=== PATIENT | female | born 1970 | race Caucasian/White ===

== ENCOUNTER 2017-01-20 17:32 | Inpatient (IN) | payer MEDICARE, OTHER ==
--- NOTE | 2017-01-20 15:26 | P.HPIM ---
History of Present Illness H&P Date: 01/20/17 46-year-old female admitted to the F floor from hospice care. Patient had made a clinical improvement was more awake and more alert family had opted to stop the hospice care on January 20 and wanted medical management 2 resume. Patient's initial presentation to the emergency room on January 08 with a polysubstance drug overdose necessitating intubation with vent support for acute hypoxic respiratory failure. Patient was able to be extubated and transferred from the ICU to the stepdown unit where her family wanted the patient under hospice care. 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 Organisms: MRSA Date of last positivie culture/infection: 01/08/17 MDRO Source:: BLOOD Past Surgical History: Unable to Obtain, Appendectomy, Tubal Ligation Additional Past Surgical History / Comment(s): neck fusion Past Anesthesia/Blood Transfusion Reactions: No Reported Reaction, Unable to Obtain Past Psychological History: No Psychological Hx Reported, Unable to Obtain Smoking Status: Unknown if ever smoked Past Alcohol Use History: None Reported, Unable to Obtain Past Drug Use History: None Reported, Unable to Obtain Additional Drug Use History / Comment(s): tox screen positive - Past Family History Father History Unknown: Yes Family Medical History: Unable to Obtain Mother History Unknown: Yes Family Medical History: Unable to Obtain Medications and Allergies Home Medications Medication Instructions Recorded Confirmed Type Baclofen [Lioresal] 20 mg PO TID 01/08/17 01/20/17 History Choline Citrate 650mg 650 mg PO BID 01/08/17 01/20/17 History Cyanocobalamin (Vitamin B-12) 1,000 mcg PO DAILY 01/08/17 01/20/17 History [Vitamin B-12] Folic Acid 0.4 mg PO DAILY 01/08/17 01/20/17 History Gabapentin 600 mg PO Q4H 01/08/17 01/20/17 History HYDROcodone/IBUPROFEN [Xylon 0.5 tab PO BID 01/08/17 01/20/17 History 10-200 mg Tablet] Levothyroxine Sodium [Synthroid] 137 mcg PO DAILY 01/08/17 01/20/17 History Loratadine 10 mg PO DAILY 01/08/17 01/20/17 History Morphine Sulfate [Ms Contin] 15 mg PO HS 01/08/17 01/20/17 History Morphine Sulfate [Ms Contin] 30 mg PO QAM 01/08/17 01/20/17 History Naproxen 500 mg PO Q12H 01/08/17 01/20/17 History Nortriptyline [Pamelor] 100 mg PO HS 01/08/17 01/20/17 History Omeprazole 40 mg PO DAILY 01/08/17 01/20/17 History Oxybutynin Chloride [Ditropan] 5 mg PO TID 01/08/17 01/20/17 History Pyridoxine [Vitamin B-6] 50 mg PO DAILY 01/08/17 01/20/17 History Allergies Allergy/AdvReac Type Severity Reaction Status Date / Time acetaminophen Allergy Unknown Verified 01/16/17 13:38 aspirin Allergy Rash/Hives Verified 01/16/17 13:38 DAIRY Allergy Vomiting Uncoded 01/08/17 17:54 Physical Exam Vitals: Intake and Output 01/20/17 01/20/17 01/20/17 06:59 14:59 22:59 Intake Total 102.000 365 Output Total 1100 600 Balance -998.000 -235 Intake: IV 65 Morphine Sulfate (100 mg/ 65 2 ml) 100 mg In Sodium Chloride 0.9% 100 ml @ Titrate IV .Q0M RAGHU Rx#: [id number] Intake, IV Titration 102.000 Amount Morphine Sulfate (100 mg/ 102.000 2 ml) 100 mg In Sodium Chloride 0.9% 100 ml @ Titrate IV .Q0M RAGHU Rx#: [id number] Oral 0 300 Output: Urine 1100 600 Uretheral (Yuan) 500 Other: Voiding Method Indwelling Catheter Indwelling Catheter Weight 79.5 kg 79.5 kg Patient Weight 01/21/17 06:59 Weight 79.5 kg GENERAL APPEARANCE: The patient is increasingly more awake and alert is asking to be feed alert, oriented to person only is able to identify family members, in no acute distress. attempt to follow simple commands VITAL SIGNS: Reviewed HEENT: Head is normocephalic and atraumatic. Pupils are equal and reactive. The nares are patent. Oropharynx is clear without lesions. NECK: Supple without lymphadenopathy. Traches midline. HEART: S1, S2. Regular rate and rhythm. LUNGS: No crackles or wheezes are heard. ABDOMEN: Soft, nontender, nondistended with good bowel sounds. No peritoneal signs. No palpable organomegaly or masses. EXTREMITIES: Normal skin color and turgor. No cyanosis, rash, ulceration, clubbing or edema. Radial pedal pulses are 2/4 bilaterally. NEUROLOGICAL: No focal deficits. Strength and sensation are grossly intact. Results CBC & Chem 7: 01/22/17 06:15 01/22/17 06:15 Thrombosis Risk Factor Assmnt - Choose All That Apply Any of the Below Risk Factors Present?: Yes Each Factor Represents 1 point: Age 41-60 years Other Risk Factors: Yes Each Risk Factor Represents 2 Points: Patient confined to bed Other congenital or acquired thrombophilia - If yes, enter type in comment: No Thrombosis Risk Factor Assessment Total Risk Factor Score: 3 Thrombosis Risk Factor Assessment Level: Moderate Risk Assessment and Plan Plan: Impression Recent admission on 01/08/2017 for acute hypoxic respiratory failure suspect due to a polysubstance drug overdose resolved Recent Blood cultures positive for MRSA Chest x-ray right upper lobe pneumonia Recent admission 01/08/2017 acute metabolic encephalopathy suspect due to medication Recent admission for treatment of on 01/08/2017 Drug overdose unclear if intentional or unintentional recent admission and treatment for on 01/08/2017 severe recent admission 01/08/2017 for treatment of sepsis with septic shock suspect due to MRSA pneumonia and bacteremia Recent admission treatment for on 01/08/2017 aspiration pneumonia right lower lobe likely due to MRSA with acute hypoxic respiratory failure Plan Resume IV antibiotics as ordered Aspiration precautions DVT and GI prophylaxis Wean morphine drip off Resume home meds as appropriate Further recommendations pending PT OT eval The above impression and plan of care have been discussed and directed by signing physician. Vero Hernandez nurse practitioner acting as scribe for signing physician.
[2017-01-20 18:46] VITALS: BMI 29.1
[2017-01-20] MEDS ORDERED: IV VANCOMYCIN PER PHARMACY 1 EACH MISC MISCELLANE PRN (19:01)
[2017-01-20] MEDS ORDERED: MORPHINE SULFATE ER 15 MG TABLET PO SCH (21:00)
[2017-01-20] MEDS ORDERED: NORTRIPTYLINE 25 MG CAP PO SCH (21:00)
[2017-01-20] MEDS: VANCOMYCIN 1,750 MG in SODIUM CHLORIDE 0.9% 250 ML IVPB SCH (22:53)
[2017-01-20] MEDS: BACLOFEN 10 MG TAB PO SCH (22:54)
[2017-01-20] MEDS: NAPROXEN 250 MG TAB PO SCH (22:55)
[2017-01-20] MEDS: SODIUM CHLORIDE 0.9% 1,000 ML IV SCH (22:56)
[2017-01-20] MEDS: OXYBUTYNIN CHLORIDE 5 MG TAB PO SCH (22:56)
[2017-01-20] MEDS: ONDANSETRON 4 MG/2 ML VIAL IVP PRN (23:09)
[2017-01-21] MEDS: PIPERACILLIN-TAZOBACTAM 3.375 GM in DEXTROSE/WATER 1 50ML.BAG IVPB SCH ×4 (01:41→23:35)
[2017-01-21] MEDS: LEVOTHYROXINE 137 MCG TAB PO SCH (06:14)
[2017-01-21] MEDS: VANCOMYCIN 1,750 MG in SODIUM CHLORIDE 0.9% 250 ML IVPB SCH ×2 (07:26→19:50)
[2017-01-21 08:43] LABS: Basophils # (A) 0.1 k/uL (0-0.2); Basophils % (A) 1 %; CH 30.7; CHCM 34.3; Eosinophils # (A) 0.2 k/uL (0-0.7); Eosinophils % (A) 2 %; HCT 32.9 % (34.0-46.0); HDW 3.29; HGB 10.9 gm/dL (11.4-16.0); Luc % (Auto) 2; Lymphocytes # (A) 1.7 k/uL (1.0-4.8); Lymphocytes % (A) 18 %; MCH 29.7 pg (25.0-35.0); MCHC 33.1 g/dL (31.0-37.0); MCV 89.8 fL (80.0-100.0); Mean Platelet Volume 7.5; Monocytes # (A) 0.5 k/uL (0-1.0); Monocytes % (A) 5 %; Neutrophils # (A) 6.8 k/uL (1.3-7.7); Neutrophils % (A) 71 %; RBC 3.66 m/uL (3.80-5.40); RDW 14.5 % (11.5-15.5); WBC 9.6 k/uL (3.8-10.6); WBC (Perox) 10.13
[2017-01-21 08:48] LABS: ALT 59 U/L (9-52); AST 27 U/L (14-36); Alkaline Phosphatase 269 U/L (38-126); Anion Gap 12 mmol/L; Blood Urea Nitrogen 14 mg/dL (7-17); Calcium 8.5 mg/dL (8.4-10.2); Carbon Dioxide 24 mmol/L (22-30); Chloride 105 mmol/L (98-107); Glucose 74 mg/dL (74-99); Non-African American GFR(MDRD) >60 (>60 ml/min/1.73 sqM); Potassium 3.6 mmol/L (3.5-5.1); Sodium 141 mmol/L (137-145); Total Bilirubin 0.6 mg/dL (0.2-1.3); Total Protein 6.2 g/dL (6.3-8.2)
[2017-01-21] MEDS ORDERED: MORPHINE SULFATE ER 30 MG TABLET PO SCH ×2 (09:00→11:50)
[2017-01-21] MEDS: NAPROXEN 250 MG TAB PO SCH ×2 (09:43→19:50)
[2017-01-21] MEDS: PANTOPRAZOLE 40 MG TABLET PO SCH (09:43)
[2017-01-21] MEDS: BACLOFEN 10 MG TAB PO SCH ×3 (09:43→20:02)
[2017-01-21] MEDS: CYANOCOBALAMIN 500 MCG TAB PO SCH (09:43)
[2017-01-21] MEDS: OXYBUTYNIN CHLORIDE 5 MG TAB PO SCH ×3 (09:44→21:51)
[2017-01-21] MEDS: SODIUM CHLORIDE 0.9% 1,000 ML IV SCH (09:47)
--- NOTE | 2017-01-21 10:59 | P.CNPUL ---
History of Present Illness Consult date: 01/21/17 Requesting physician: Philip Andino Reason for consult: pneumonia Chief complaint: shortness of breath History of present illness: This is a 46-year-old female patient being seen, examined and evaluated today on the fifth floor. This patient originally presented to the emergency room on 01/08/2017 via EMS for overdose. Apparently the patient was at home and her roommate found her unresponsive around multiple bottles of pills, therefore the remaining forced her to vomit before EMS arrived. When EMS arrived they did note that there was pill fragments in her vomit. EMS did give the patient Narcan with minimal improvement of her symptoms. It is unclear what medications the patient did consume however there is speculation that it was morphine, gabapentin and baclofen. The patient's urine drug screen was positive for opiates, tricyclic antidepressants, cocaine and marijuana. Poison control was also following the patient. The patient was on mechanical ventilation with propofol for sedation she also noted to have a right lower lobe aspiration pneumonia. The patient was on mechanical ventilation for several days and had a neurological evaluation as well. It was felt that the patient suffered an anoxic brain injury and after 2 brain CTs and 3 EEGs. The patient was not showing any neurological improvements or advancement. The patient's power of state's attorney Natalya was updated daily on her condition and Natalya was requesting that the patient be made comfort care with hospice. The patient was trialed on CPAP with his sedation holidays on a daily basis and again before extubation and the patient was unable to tolerate it, her heart rate as well as a respiratory rate increased significantly. Patient was ultimately switched over to comfort care/hospice per power of state's attorney's request. Apparently over the last 2 days the patient was showing some clinical improvement therefore the patient's power of state's attorney Natalya requested we take her off of hospice and restart medical management. Upon examination today the patient is resting up in bed and is somewhat lethargic, she is able to follow simple commands, she is extremely weak and has some shortness of breath with activity. Patient is able to recall some of her long-term memory, however short -term memory seems to be impaired. Patient does not remember coming to the hospital or why she is here. She does recognize her daughter as well as her mother at bedside. Currently she is on a pured diet and is tolerating that well. Patient denies any pain or any further complaints. Review of Systems 14 point review of systems was completed and is negative unless noted above in the HPI. 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 Organisms: MRSA Date of last positivie culture/infection: 01/08/17 MDRO Source:: BLOOD Past Surgical History: Unable to Obtain, Appendectomy, Tubal Ligation Additional Past Surgical History / Comment(s): neck fusion Past Anesthesia/Blood Transfusion Reactions: No Reported Reaction, Unable to Obtain Past Psychological History: No Psychological Hx Reported, Unable to Obtain Smoking Status: Unknown if ever smoked Past Alcohol Use History: None Reported, Unable to Obtain Past Drug Use History: None Reported, Unable to Obtain - Past Family History Father History Unknown: Yes Family Medical History: Unable to Obtain Mother History Unknown: Yes Family Medical History: Unable to Obtain Medications and Allergies Home Medications Medication Instructions Recorded Confirmed Type Baclofen [Lioresal] 20 mg PO TID 01/08/17 01/20/17 History Choline Citrate 650mg 650 mg PO BID 01/08/17 01/20/17 History Cyanocobalamin (Vitamin B-12) 1,000 mcg PO DAILY 01/08/17 01/20/17 History [Vitamin B-12] Folic Acid 0.4 mg PO DAILY 01/08/17 01/20/17 History Gabapentin 600 mg PO Q4H 01/08/17 01/20/17 History HYDROcodone/IBUPROFEN [Xylon 0.5 tab PO BID 01/08/17 01/20/17 History 10-200 mg Tablet] Levothyroxine Sodium [Synthroid] 137 mcg PO DAILY 01/08/17 01/20/17 History Loratadine 10 mg PO DAILY 01/08/17 01/20/17 History Morphine Sulfate [Ms Contin] 15 mg PO HS 01/08/17 01/20/17 History Morphine Sulfate [Ms Contin] 30 mg PO QAM 01/08/17 01/20/17 History Naproxen 500 mg PO Q12H 01/08/17 01/20/17 History Nortriptyline [Pamelor] 100 mg PO HS 01/08/17 01/20/17 History Omeprazole 40 mg PO DAILY 01/08/17 01/20/17 History Oxybutynin Chloride [Ditropan] 5 mg PO TID 01/08/17 01/20/17 History Pyridoxine [Vitamin B-6] 50 mg PO DAILY 01/08/17 01/20/17 History Allergies Allergy/AdvReac Type Severity Reaction Status Date / Time acetaminophen Allergy Unknown Verified 01/16/17 13:38 aspirin Allergy Rash/Hives Verified 01/16/17 13:38 DAIRY Allergy Vomiting Uncoded 01/08/17 17:54 Physical Exam Vitals: Vital Signs Temp Pulse Resp BP Pulse Ox 01/21/17 07:47 66 16 01/21/17 07:00 99.1 F 66 16 122/68 93 L 01/21/17 00:00 61 16 01/20/17 22:39 98.4 F 61 16 131/86 92 L Intake and Output 01/20/17 01/21/17 01/21/17 22:59 06:59 14:59 Intake Total 130 1310 Output Total 325 400 400 Balance -195 910 -400 Intake: Intake, IV Titration 1310 Amount Piperacillin-Tazobactam 3 50 .375 gm In Dextrose/Water 1 50ml.bag @ 12.5 mls/hr IVPB Q8HR RAGHU Rx#: [id number] Sodium Chloride 0.9% 1, 1010 000 ml @ 75 mls/hr IV . [id number] RAGHU Rx#:[id number] Vancomycin 1,750 mg In 250 Sodium Chloride 0.9% 250 ml @ 125 mls/hr IVPB Q12H RAGHU Rx#:[id number] Oral 130 Output: Urine 325 400 400 Uretheral (Yuan) 325 Other: Voiding Method Indwelling Catheter Indwelling Catheter # Voids 0 0 Weight 79.5 kg 79.5 kg 79.5 kg Patient Weight 01/22/17 06:59 Weight 79.5 kg GENERAL EXAM: Alert, lethargic, comfortable in no apparent distress. HEAD: Normocephalic. EYES: Normal reaction of pupils, equal size. NOSE: Clear with pink turbinates. THROAT: No erythema or exudates. NECK: No masses, no JVD. CHEST: No chest wall deformity. LUNGS: Lung sounds noted to be coarse throughout. Equal air entry with no crackles, wheeze, rhonchi or dullness. Bases diminished. CVS: S1 and S2 normal with no audible mumurs, regular rhythm. ABDOMEN: No hepatosplenomegaly, normal bowel sounds, no guarding or rigidity. EXTREMITIES: No edema noted, pedal pulses palpable. SKIN: No rashes CENTRAL NERVOUS SYSTEM: No focal deficits, tone is normal in all 4 extremities. Results - Laboratory Findings CBC and BMP: 01/21/17 07:40 01/21/17 07:40 Abnormal lab findings: Abnormal Labs 01/21/17 01/21/17 07:40 07:40 RBC 3.66 L Hgb 10.9 L Hct 32.9 L Plt Count 712 H ALT 59 H Alkaline Phosphatase 269 H Total Protein 6.2 L Albumin 3.0 L Assessment and Plan Plan: Assessment Acute hypoxic respiratory failure Aspiration pneumonia, right lower lobe, likely related to MRSA which is isolated in the blood, sputum also did have gram-positive cocci overall appeared to be MRSA pneumonia and bacteremia Severe sepsis with septic shock Drug overdose, unclear if it was intentional or unintentional Encephalopathy likely related to medication with comatose state, improved Drug overdose and polysubstance abuse Plan Patient's power of state's attorney Natalya is at bedside and updated on patient current condition as well as plan of care. All questions have been answered. Medications have been reviewed and will be continued as ordered. We will add nebulizer treatments. Obtain chest x-ray in the morning. Neurology on consult and appreciate any recommendations. Initiate and encourage incentive spirometer. Continue with pulmonary hygiene, coughing and deep breathing exercises, and supportive care. Supplemental oxygen to maintain oxygen saturations of 92% or better. Continue nebulizer treatments. GI and DVT prophylaxis. We will continue to monitor labs/results and adjust treatment as necessary. Further recommendations pending. I performed an examination of the patient and discussed their management with the nurse practitioner. I have reviewed the nurse practitioner's note and agree with the documented findings and plan of care.
[2017-01-21] MEDS: FOLIC ACID 1 MG TAB PO SCH (11:14)
[2017-01-21] MEDS ORDERED: MORPHINE SULFATE ER 15 MG TABLET PO SCH (11:52)
--- NOTE | 2017-01-21 12:25 | P.PN ---
Subjective 46-year-old female being seen this morning on rounds. Mother is at the bedside as well as a sister. Patient is more awake and alert this morning compared to prior assessment. Patient is able to identify family members and place and her name. Speech is slow but audible. Patient additionally will follow simple commands and moves extremities appropriately Nursing reports the patient has been incontinent of stool this morning. Patient's currently being followed by neurology, pulmonary and infectious disease. Patient's initial presentation to the emergency room with a drug overdose polysubstance unclear if it was intentional or unintentional. Patients also being treated for aspiration pneumonia right lower lobe likely related to MRSA. Patient's encephalopathy slowly improving. Patient originally presented to the emergency room on the 13 of January via the EMS system after patient was found unresponsive at home suspect a drug overdose polysubstance. Patient was noted to have a urine drug screen which was positive for opiates, tricyclic antidepressants, cocaine and marijuana. Patient was placed on mechanical ventilation support and treated for the right lower lobe aspiration pneumonia. Patient had been on mechanical ventilation for several days and been followed by neurology service. Neurology service felt that the patient suffered anoxic brain injury after to brain CT scans and 3 EEGs. There was no significant improvement neurologically. The patient's daughter Natalya was power of finance attorney was updated throughout the hospitalization on the patient's progress. The daughter who was the power of finance attorney Natalya was requesting that the patient be made comfort care with hospice. Ultimately the patient was able to be extubated per family request the patient was discharged from the ICU to a hospice care. The patient apparently continued to show slight improvement in the neurological status patient became more awake. The family wanted the hospice comfort care stopped and they wanted the patient taken off of hospice they wanted to restart medical management. This was started patient was discharged from hospice on January 20 and readmitted to medical floor with medical management restarted. Physical and occupational therapy initiated in all consulting physicians recommendations noted and appreciated. Patient did have a swallow eval done on January 20 patient was able to tolerate pureed diet Objective - Vital Signs Vital signs: Vital Signs Temp 99.1 F 01/21/17 07:00 Pulse 66 01/21/17 07:47 Resp 16 01/21/17 07:47 BP 122/68 01/21/17 07:00 Pulse Ox 93 L 01/21/17 07:00 Intake & Output 01/20/17 01/21/17 01/21/17 18:59 06:59 18:59 Intake Total 1440 Output Total 325 400 400 Balance -325 1040 -400 Weight 79.5 kg 79.5 kg 79.5 kg Intake: Intake, IV Titration 1310 Amount Piperacillin-Tazobactam 3 50 .375 gm In Dextrose/Water 1 50ml.bag @ 12.5 mls/hr IVPB Q8HR [facility]AG[facility] Rx#: [id number] Sodium Chloride 0.9% 1, 1010 000 ml @ 75 mls/hr IV . [id number] RAGHU Rx#:[id number] Vancomycin 1,750 mg In 250 Sodium Chloride 0.9% 250 ml @ 125 mls/hr IVPB Q12H RAGHU Rx#:[id number] Oral 130 Output: Urine 325 400 400 Uretheral (Yuan) 325 Other: Voiding Method Indwelling Catheter Indwelling Catheter # Voids 0 0 - Exam Physical exam 46-year-old female resting in bed currently is awake eyes on a TV program when asked what she was watching patient was not able to recall but was able to identify mother and sister at the bedside Lungs diminished at the bases otherwise adequate air movement on room air no cough noted no shortness breath Heart S1-S2 audible no murmur noted 9 chest pain Abdomen soft not distended no facial grimacing with palpitation to the abdominal wall. Patient has been incontinent of stool indwelling Yuan catheter in place Extremities no edema noted. Patient will move extremities to simple command - Labs CBC & Chem 7: 01/21/17 07:40 01/21/17 07:40 Labs: Abnormal Lab Results - Last 24 Hours (Table) 01/21/17 01/21/17 Range/Units 07:40 07:40 RBC 3.66 L (3.80-5.40) m/uL Hgb 10.9 L (11.4-16.0) gm/dL Hct 32.9 L (34.0-46.0) % Plt Count 712 H (150-450) k/uL ALT 59 H (9-52) U/L Alkaline Phosphatase 269 H (38-126) U/L Total Protein 6.2 L (6.3-8.2) g/dL Albumin 3.0 L (3.5-5.0) g/dL Assessment and Plan Plan: Impression Present on admission acute hypoxic respiratory failure suspect due to a polysubstance drug overdose Blood cultures positive for MRSA Chest x-ray right upper lobe pneumonia Present on admission acute metabolic encephalopathy suspect due to medication with a comatose state improved Drug overdose unclear if intentional or unintentional Present on admission severe sepsis with septic shock suspect due to MRSA pneumonia and bacteremia Present on admission aspiration pneumonia right lower lobe likely due to MRSA with acute hypoxic respiratory failure Plan Resume IV antibiotics as ordered Aspiration precautions DVT and GI prophylaxis [employer]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 Vero Hernandez nurse practitioner acting as scribe for signing physician.
[2017-01-21 13:08] LABS: Appearance,Urine Cloudy (Clear); Bilirubin,Urine Negative (Negative); Glucose,Urine (UA) Negative (Negative); Ketones,Urine 2+ (Negative); Leukocyte Esterase,Urine Moderate (Negative); Mucus,Urine Rare /hpf; Nitrite,Urine Negative (Negative); PH, Urine 6.5 (5.0-8.0); Particle Count 3641; Protein,Urine Negative (Negative); RBC,Urine 51 /hpf (0-5); Specific Gravity,Urine 1.012 (1.001-1.035); Squamous Epithelial Cell,Urine 1 /hpf (0-4); UA Billing (MACRO vs. MICRO) MICRO; Urobilinogen,Urine <2.0 mg/dL (<2.0); WBC,Urine 22 /hpf (0-5)
[2017-01-21] MEDS: IPRATROPIUM-ALBUTEROL 3 ML NEB INHALATION SCH ×2 (13:18→20:16)
--- NOTE | 2017-01-21 14:05 | P.CN ---
Psychiatric Consult - . Consult date: 01/21/17 Consult:: 01/21/17 13:28 Identification and Reason for Consult: Patient is a 46-year-old female who was admitted after an overdose on multiple medications. Consult is being requested due to her overdose. Patient's chart was reviewed, patient was seen in her room alone, the family that was present left and did not stay for the interview. There is no additional historian. History of Present Illness: Patient is a 46-year-old female who took an overdose of multiple medications for an unknown reason. When I asked the patient if she understood why she was in the hospital and what had occurred to bring her to the hospital, she was not able to explain this to me. When I stated that she had taken multiple medications and required hospitalization she was not able to elaborate further on this. Patient reported to me that she has not been treated in the past for any psychiatric problems and denied ever having made suicide attempts in the past or had suicidal ideation. Patient states she has never been admitted to an inpatient psychiatric facility. 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 Patient stated that she was not taking this medication for depression and had never been prescribed any medications for depression. Patient was not able to endorse any symptoms of depression currently or in the past and reports no history of psychotic symptoms in the past. Patient was a fair historian, she was unable to give any explanation for what occurred prior to her admission at this time. Patient is reporting to me that she has never been treated for any psychiatric problems in the past. Past Psychiatric History: Patient denies any prior treatment, denies any prior inpatient admissions and denies any prior suicide attempts. 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 She states that she is on disability due to this. Patient also has a history of hypothyroidism and is status post appendectomy. Patient reports that she was taking Pamelor to assist with her sleep at night. Per the chart patient's home medications were lioresal, gabapentin, hydrocodone , Synthroid, loratadine, MS Contin, Pamelor and Ditropan. Current Medications Albuterol/Ipratropium (Duoneb 0.5 Mg-3 Mg/3 Ml Soln) 3 ml INHALATION RT-TID COUNTS INCLUDE 234 BEDS AT [facility] Last Admin: 01/21/17 13:18 Dose: Not Given Baclofen (Lioresal) 20 mg PO TID COUNTS INCLUDE 234 BEDS AT [facility] Last Admin: 01/21/17 09:43 Dose: Not Given Budesonide (Pulmicort) 0.5 mg INHALATION RT-BID COUNTS INCLUDE 234 BEDS AT THE [facility] Cyanocobalamin (Vitamin B-12) 1,000 mcg PO DAILY COUNTS INCLUDE 234 BEDS AT THE [facility] Last Admin: 01/21/17 09:43 Dose: Not Given Folic Acid (Folic Acid) 0.5 mg PO DAILY@1200 COUNTS INCLUDE 234 BEDS AT [facility] Last Admin: 01/21/17 11:14 Dose: 0.5 mg Piperacillin/Tazobactam/ (Dextrose 3.375 gm/ IV Solution) 50 mls @ 12.5 mls/hr IVPB Q8HR COUNTS INCLUDE 234 BEDS AT [facility] Last Admin: 01/21/17 09:47 Dose: 12.5 mls/hr Sodium Chloride (Saline 0.9%) 1,000 mls @ 75 mls/hr IV .[id number] COUNTS INCLUDE 234 BEDS AT [facility] Last Admin: 01/21/17 09:47 Dose: 75 mls/hr Vancomycin HCl 1,750 mg/ (Sodium Chloride) 250 mls @ 125 mls/hr IVPB Q12H COUNTS INCLUDE 234 BEDS AT [facility] Last Admin: 01/21/17 07:26 Dose: 125 mls/hr Levothyroxine Sodium (Synthroid) 137 mcg PO 0630 COUNTS INCLUDE 234 BEDS AT [facility] Last Admin: 01/21/17 06:14 Dose: 137 mcg Miscellaneous Information (Vancomycin Trough Due) 0 each MISCELLANE DIRECTED ONE Stop: 01/22/17 07:16 Morphine Sulfate (Ms Contin) 15 mg PO QAM COUNTS INCLUDE 234 BEDS AT [facility] Naproxen (Naprosyn) 500 mg PO Q12HR COUNTS INCLUDE 234 BEDS AT [facility] Last Admin: 01/21/17 09:43 Dose: Not Given Nortriptyline HCl (Pamelor) 100 mg PO HS COUNTS INCLUDE 234 BEDS AT [facility] Last Admin: 01/20/17 22:54 Dose: 100 mg Ondansetron HCl (Zofran) 4 mg IVP Q6HR PRN PRN Reason: Nausea And Vomiting Last Admin: 01/20/17 23:09 Dose: 4 mg Oxybutynin Chloride (Ditropan) 5 mg PO TID COUNTS INCLUDE 234 BEDS AT [facility] Last Admin: 01/21/17 09:44 Dose: Not Given Pantoprazole Sodium (Protonix) 40 mg PO AC-BRKFST [facility] Last Admin: 01/21/17 09:43 Dose: Not Given Family History: Patient reports that there is no family history of any psychiatric disorders or alcohol or substance use disorders and no one has completed suicide. Social History: Patient states she was born and raised in [place] and reported no contact with her father. She reported that she is the oldest of 5. Patient stated that she quit high school in the 12th grade and worked as a manager process improvement. She states that she had her first child at the age of 14 and states she had 2 girls and 2 boys. She reported she also has a granddaughter who is 8 and a grandson who is 9. Patient stated that she had been living with someone she referred to as her "extra mother". She states that she was in the past but is . She states she is on disability due to her spinal cord stroke. Substance Use History: Patient states that she uses alcohol perhaps several times a month, stated she used marijuana on a daily basis and has a medical marijuana card. She denied any other drug use currently. Legal History: Patient denied any legal history. Mental Status:Appearance/Attitude: Patient was lying in a hospital bed and appeared exhausted, she was in no acute distress and made good eye contact and was cooperative for the interview. Behavior: Patient did not display any psychomotor agitation and she was at times slow to respond. Speech/Language: Patient responded to questions in brief sentences, she spoke in a soft voice with a normal rhythm. Thought Process: Patient was goal-directed in her responses, that were brief and there is no evidence of any circumstantial or tangential thought and no loose associations or flight of ideas. Thought Content: Patient denied any auditory or visual hallucinations and no paranoid or delusional ideation was elicited. Patient reported that she could not recall why she was admitted, did not understand why she had taken multiple medications when told why she was admitted. Patient reported she was feeling tired and exhausted. Suicidal/Homicidal Ideation: Patient denied any current suicidal or homicidal ideation Sensorium/Cognition: Patient was alert and oriented to person, place, situation and stated the date was 01/08/2017. Patient's memory was not formally tested. Mood/Affect: Patient denied feeling depressed, stated she was tired and her affect was blunted. Insight/Judgement: Patient's insight and judgment are poor. Assessment: Patient was admitted on January 08 after taking an overdose of multiple medications for an unknown reason, and in an unresponsive state. She was admitted and was also treated for a right upper lobe pneumonia and required intubation and is also positive for MRSA. Patient had been transferred to hospice care and then began to become more alert and so was transferred back to a medical floor and discharged from hospice care. Patient was seen today without her family present and she was exhausted and the interview was kept short, formal cognitive testing was not performed. Patient is denying any prior psychiatric history or treatment for depression and states that she was on Pamelor to assist with her sleep. She denies any current suicidal ideation and denies ever feeling that way in the past or ever making any prior attempts. I spoke with nursing staff who reported that the patient's boyfriend had been on his way to the hospital when she was initially admitted and was killed in a motor vehicle accident, her mother told the patient this yesterday, however the patient did not make any mention of this to me today. Her nurse also reports that the patient had a long discussion with her attending today regarding her reasons for admission and the patient was not able to tell me why she was admitted. Patient's daughter Natalya has DURABLE POWER OF LITIGATION ASSOCIATE. Patient's UDS on admission was positive for cocaine, marijuana, opiates and tricyclic antidepressants, patient was taking opiates and a tricyclic antidepressant and did report using marijuana however the patient denied that she had ever used cocaine when I spoke with her. Laboratory Last Values WBC 9.6 k/uL (3.8-10.6) 01/21/17 07:40 RBC 3.66 m/uL (3.80-5.40) L 01/21/17 07:40 Hgb 10.9 gm/dL (11.4-16.0) L 01/21/17 07:40 Hct 32.9 % (34.0-46.0) L 01/21/17 07:40 MCV 89.8 fL (80.0-100.0) 01/21/17 07:40 MCH 29.7 pg (25.0-35.0) 01/21/17 07:40 MCHC 33.1 g/dL (31.0-37.0) 01/21/17 07:40 RDW 14.5 % (11.5-15.5) 01/21/17 07:40 Plt Count 712 k/uL (150-450) H 01/21/17 07:40 Neutrophils % 71 % 01/21/17 07:40 Lymphocytes % 18 % 01/21/17 07:40 Monocytes % 5 % 01/21/17 07:40 Eosinophils % 2 % 01/21/17 07:40 Basophils % 1 % 01/21/17 07:40 Neutrophils # 6.8 k/uL (1.3-7.7) 01/21/17 07:40 Lymphocytes # 1.7 k/uL (1.0-4.8) 01/21/17 07:40 Monocytes # 0.5 k/uL (0-1.0) 01/21/17 07:40 Eosinophils # 0.2 k/uL (0-0.7) 01/21/17 07:40 Basophils # 0.1 k/uL (0-0.2) 01/21/17 07:40 Sodium 141 mmol/L (137-145) 01/21/17 07:40 Potassium 3.6 mmol/L (3.5-5.1) 01/21/17 07:40 Chloride 105 mmol/L (98-107) 01/21/17 07:40 Carbon Dioxide 24 mmol/L (22-30) 01/21/17 07:40 Anion Gap 12 mmol/L 01/21/17 07:40 BUN 14 mg/dL (7-17) 01/21/17 07:40 Creatinine 0.53 mg/dL (0.52-1.04) 01/21/17 07:40 Est GFR (MDRD) Af Amer >60 (>60 ml/min/1.73 sqM) 01/21/17 07:40 Est GFR (MDRD) Non-Af >60 (>60 ml/min/1.73 sqM) 01/21/17 07:40 Glucose 74 mg/dL (74-99) 01/21/17 07:40 Calcium 8.5 mg/dL (8.4-10.2) 01/21/17 07:40 Total Bilirubin 0.6 mg/dL (0.2-1.3) 01/21/17 07:40 AST 27 U/L (14-36) 01/21/17 07:40 ALT 59 U/L (9-52) H 01/21/17 07:40 Alkaline Phosphatase 269 U/L (38-126) H 01/21/17 07:40 Total Protein 6.2 g/dL (6.3-8.2) L 01/21/17 07:40 Albumin 3.0 g/dL (3.5-5.0) L 01/21/17 07:40 Urine Color Yellow 01/21/17 12:20 Urine Appearance Cloudy (Clear) H 01/21/17 12:20 Urine pH 6.5 (5.0-8.0) 01/21/17 12:20 Ur Specific [place]son 1.012 (1.001-1.035) 01/21/17 12:20 Urine Protein Negative (Negative) 01/21/17 12:20 Urine Glucose (UA) Negative (Negative) 01/21/17 12:20 Urine Ketones 2+ (Negative) H 01/21/17 12:20 Urine Blood Small (Negative) H 01/21/17 12:20 Urine Nitrite Negative (Negative) 01/21/17 12:20 Urine Bilirubin Negative (Negative) 01/21/17 12:20 Urine Urobilinogen <2.0 mg/dL (<2.0) 01/21/17 12:20 Ur Leukocyte Esterase Moderate (Negative) H 01/21/17 12:20 Urine RBC 51 /hpf (0-5) H 01/21/17 12:20 Urine WBC 22 /hpf (0-5) H 01/21/17 12:20 Ur Squamous Epith Cells 1 /hpf (0-4) 01/21/17 12:20 Urine Mucus Rare /hpf (None) H 01/21/17 12:20 Urine Yeast (Budding) Many /hpf (None) H 01/21/17 12:20 Current Medications Albuterol/Ipratropium (Duoneb 0.5 Mg-3 Mg/3 Ml Soln) 3 ml INHALATION RT-TID COUNTS INCLUDE 234 BEDS AT [facility] Last Admin: 01/21/17 13:18 Dose: Not Given Baclofen (Lioresal) 20 mg PO TID COUNTS INCLUDE 234 BEDS AT [facility] Last Admin: 01/21/17 09:43 Dose: Not Given Budesonide (Pulmicort) 0.5 mg INHALATION RT-BID COUNTS INCLUDE 234 BEDS AT [facility] Cyanocobalamin (Vitamin B-12) 1,000 mcg PO DAILY COUNTS INCLUDE 234 BEDS AT [facility] Last Admin: 01/21/17 09:43 Dose: Not Given Folic Acid (Folic Acid) 0.5 mg PO DAILY@1200 COUNTS INCLUDE 234 BEDS AT [facility] Last Admin: 01/21/17 11:14 Dose: 0.5 mg Piperacillin/Tazobactam/ (Dextrose 3.375 gm/ IV Solution) 50 mls @ 12.5 mls/hr IVPB Q8HR COUNTS INCLUDE 234 BEDS AT [facility] Last Admin: 01/21/17 09:47 Dose: 12.5 mls/hr Sodium Chloride (Saline 0.9%) 1,000 mls @ 75 mls/hr IV .[id number] COUNTS INCLUDE 234 BEDS AT [facility] Last Admin: 01/21/17 09:47 Dose: 75 mls/hr Vancomycin HCl 1,750 mg/ (Sodium Chloride) 250 mls @ 125 mls/hr IVPB Q12H COUNTS INCLUDE 234 BEDS AT [facility] Last Admin: 01/21/17 07:26 Dose: 125 mls/hr Levothyroxine Sodium (Synthroid) 137 mcg PO 0630 COUNTS INCLUDE 234 BEDS AT [facility] Last Admin: 01/21/17 06:14 Dose: 137 mcg Miscellaneous Information (Vancomycin Trough Due) 0 each MISCELLANE DIRECTED ONE Stop: 01/22/17 07:16 Morphine Sulfate (Ms Contin) 15 mg PO QAM COUNTS INCLUDE 234 BEDS AT [facility] Naproxen (Naprosyn) 500 mg PO Q12HR COUNTS INCLUDE 234 BEDS AT [facility] Last Admin: 01/21/17 09:43 Dose: Not Given Nortriptyline HCl (Pamelor) 100 mg PO HS COUNTS INCLUDE 234 BEDS AT [facility] Last Admin: 01/20/17 22:54 Dose: 100 mg Ondansetron HCl (Zofran) 4 mg IVP Q6HR PRN PRN Reason: Nausea And Vomiting Last Admin: 01/20/17 23:09 Dose: 4 mg Oxybutynin Chloride (Ditropan) 5 mg PO TID COUNTS INCLUDE 234 BEDS AT [facility] Last Admin: 01/21/17 09:44 Dose: Not Given Pantoprazole Sodium (Protonix) 40 mg PO AC-BRKFST COUNTS INCLUDE 234 BEDS AT [facility] Last Admin: 01/21/17 09:43 Dose: Not Given Allergies acetaminophen Allergy (Verified 01/16/17 13:38) Unknown aspirin Allergy (Verified 01/16/17 13:38) Rash/Hives DAIRY Allergy (Uncoded 01/08/17 17:54) Vomiting Diagnosis: R/O mood disorder Plan: Patient is being treated after an overdose on multiple medications and at this time it is not known if this was intentional or not, patient did not recall the reason she was admitted when I spoke with her nor was she able to elaborate on why she took an overdose of her medications. She denies any prior psychiatric history or treatment and states that she was being given Pamelor to assist with her sleep. She states her sleep was disrupted due to the pain that she had after she had a spinal cord stroke in 2013. Patient denied any current suicidal ideation. Patient did not mention any thing about her boyfriend and his recent , or that she had been told this yesterday by her mother. At this time would recommend discontinuing the Pamelor as currently there is no evidence of depression and should the patient be depressed a different antidepressant would be recommended. Pamelor is sedating and at this time the patient does not need to be overly sedated. I will discontinue the Pamelor. I will follow the patient and evaluate the need for any psychotropic medication. 01/21/17 13:52
[2017-01-21] MEDS: ONDANSETRON 4 MG/2 ML VIAL IVP PRN (16:10)
--- NOTE | 2017-01-21 19:31 | P.CNNES ---
History of Present Illness Consult date: 01/21/17 Requesting physician: Philip Andino Reason for Consult: Mental status change Chief complaint: Mental status change History of Present Illness: The patient is a 46-year-old female who is being evaluated by the neurology service per the request of Dr. Philip Andino for a recent history of anoxic brain injury. The patient was brought into [facility] back on 01/08/17, after she had been unconscious for several hours after a medication overdose. According to the family, the patient got into an argument with her boyfriend and she intentionally overdosed on her prescribed medications. He left the house and return over 12 hours later and found her on the floor unconscious. Patient was immediately intubated and admitted to the intensive care unit where she remained unresponsive on no sedation for several days. On 01/16/17 there was decided to proceed with comfort care and hospice care was initiated. The patient was extubated and transferred to the medical floor. Over the past 2 days, the patient has been significantly improving. At the time of my evaluation, she is quite awake and oriented 3. She denies any lateralizing numbness or weakness. She does complain of neck pain. The patient has history of chronic neck pain and does have history of cervical spine fusion. Review of Systems All systems: negative Constitutional: Denies chills, Denies fever Eyes: denies blurred vision, denies pain Ears, nose, mouth and throat: Denies headache, Denies sore throat Cardiovascular: Denies chest pain, Denies shortness of breath Respiratory: Denies cough Gastrointestinal: Denies abdominal pain, Denies diarrhea, Denies nausea, Denies vomiting Genitourinary: Denies dysuria, Denies hematuria Musculoskeletal: Reports muscle weakness, Reports neck pain, Denies myalgias Integumentary: Denies pruritus, Denies rash Neurological: Reports as per HPI, Reports weakness, Denies numbness Psychiatric: Denies anxiety, Denies depression Endocrine: Denies fatigue, Denies weight change 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 Organisms: MRSA Date of last positivie culture/infection: 01/08/17 MDRO Source:: BLOOD Past Surgical History: Unable to Obtain, Appendectomy, Tubal Ligation Additional Past Surgical History / Comment(s): neck fusion Past Anesthesia/Blood Transfusion Reactions: No Reported Reaction, Unable to Obtain Past Psychological History: No Psychological Hx Reported, Unable to Obtain Smoking Status: Unknown if ever smoked Past Alcohol Use History: None Reported, Unable to Obtain Past Drug Use History: None Reported, Unable to Obtain Additional Drug Use History / Comment(s): tox screen positive - Past Family History Father History Unknown: Yes Family Medical History: Unable to Obtain Mother History Unknown: Yes Family Medical History: Unable to Obtain Medications and Allergies Home Medications Medication Instructions Recorded Confirmed Type Baclofen [Lioresal] 20 mg PO TID 01/08/17 01/20/17 History Choline Citrate 650mg 650 mg PO BID 01/08/17 01/20/17 History Cyanocobalamin (Vitamin B-12) 1,000 mcg PO DAILY 01/08/17 01/20/17 History [Vitamin B-12] Folic Acid 0.4 mg PO DAILY 01/08/17 01/20/17 History Gabapentin 600 mg PO Q4H 01/08/17 01/20/17 History HYDROcodone/IBUPROFEN [Xylon 0.5 tab PO BID 01/08/17 01/20/17 History 10-200 mg Tablet] Levothyroxine Sodium [Synthroid] 137 mcg PO DAILY 01/08/17 01/20/17 History Loratadine 10 mg PO DAILY 01/08/17 01/20/17 History Morphine Sulfate [Ms Contin] 15 mg PO HS 01/08/17 01/20/17 History Morphine Sulfate [Ms Contin] 30 mg PO QAM 01/08/17 01/20/17 History Naproxen 500 mg PO Q12H 01/08/17 01/20/17 History Nortriptyline [Pamelor] 100 mg PO HS 01/08/17 01/20/17 History Omeprazole 40 mg PO DAILY 01/08/17 01/20/17 History Oxybutynin Chloride [Ditropan] 5 mg PO TID 01/08/17 01/20/17 History Pyridoxine [Vitamin B-6] 50 mg PO DAILY 01/08/17 01/20/17 History Allergies Allergy/AdvReac Type Severity Reaction Status Date / Time acetaminophen Allergy Unknown Verified 01/16/17 13:38 aspirin Allergy Rash/Hives Verified 01/16/17 13:38 DAIRY Allergy Vomiting Uncoded 01/08/17 17:54 Physical Examination - Vital Signs Vital Signs: Vital Signs Temp Pulse Resp BP Pulse Ox 01/21/17 15:39 66 16 01/21/17 15:00 97.9 F 58 L 16 135/66 90 L 01/21/17 07:47 66 16 01/21/17 07:00 99.1 F 66 16 122/68 93 L 01/21/17 00:00 61 16 01/20/17 22:39 98.4 F 61 16 131/86 92 L Intake and Output 01/21/17 01/21/17 01/21/17 06:59 14:59 22:59 Intake Total 1310 890 Output Total 400 400 400 Balance 910 490 -400 Intake: Intake, IV Titration 1310 650 Amount Piperacillin-Tazobactam 3 50 50 .375 gm In Dextrose/Water 1 50ml.bag @ 12.5 mls/hr IVPB Q8HR [facility] Rx#: [id number] Sodium Chloride 0.9% 1, 1010 600 000 ml @ 75 mls/hr IV . [id number] RAG[facility] Rx#:[id number] Vancomycin 1,750 mg In 250 Sodium Chloride 0.9% 250 ml @ 125 mls/hr IVPB Q12H [facility] Rx#:[id number] Oral 240 Output: Urine 400 400 400 Other: Voiding Method Indwelling Catheter Indwelling Catheter Indwelling Catheter # Voids 2 2 # Bowel Movements 2 2 Weight 79.5 kg 79.5 kg 79.5 kg Patient Weight 01/22/17 06:59 Weight 79.5 kg - Constitutional General appearance: average body habitus, cooperative - EENT EENT: ATNC, PERRL - Cardiovascular Cardiovascular: regular rate Extremities: no peripheral edema bilaterally, no clubbing, cyanosis - Gastrointestinal Gastrointestinal: soft, non-tender - Integumentary Integumentary: normal - Neurologic The patient is alert aware and oriented 3. Speech and language are normal. Strength is 5-/5 in all 4 extremities. Sensory exam was normal to light touch in all 4 extremities. No pronator drift is seen. No tremors or seizure-like activity is seen. No facial asymmetry is noticed on cranial nerve testing. Detailed sensory examination: intact, light touch Spine tenderness: cervical: midline - Psychiatric Psychiatric: mood/affect appropriate, cooperative Results - Laboratory Findings CBC and BMP: 01/21/17 07:40 01/21/17 07:40 Abnormal Lab Findings: Abnormal Labs 01/21/17 01/21/17 01/21/17 07:40 07:40 12:20 RBC 3.66 L Hgb 10.9 L Hct 32.9 L Plt Count 712 H ALT 59 H Alkaline Phosphatase 269 H Total Protein 6.2 L Albumin 3.0 L Urine Appearance Cloudy H Urine Ketones 2+ H Urine Blood Small H Ur Leukocyte Esterase Moderate H Urine RBC 51 H Urine WBC 22 H Urine Mucus Rare H Urine Yeast (Budding) Many H Assessment and Plan (1) Other encephalopathy Status: Acute (2) Drug overdose Status: Acute (3) Cervicalgia Status: Chronic (4) Chronic pain syndrome Status: Chronic (5) Other chronic postoperative pain Status: Chronic Plan: The patient has significantly improved and hospice has been discontinued. No further inpatient neurological workup is needed. The patient is quite oriented and awake as mentioned above. She does have muscle fatigue which is expected. I will consult physical therapy to continue to treat. As for her chronic neck pain, further outpatient workup and management will be needed. I discussed with her various treatment options with the goal of getting her off of narcotic analgesics. I will continue to follow with you as needed. Thank you for allowing me to participate in the care of your patient. If you have any questions, please for free to contact me. Time with Patient: Less than 30
[2017-01-21] MEDS: BUDESONIDE 0.5 MG/2 ML NEBU INHALATION SCH (20:16)
[2017-01-22] MEDS: LEVOTHYROXINE 137 MCG TAB PO SCH (05:52)
[2017-01-22 06:28] LABS: Basophils # (A) 0.1 k/uL (0-0.2); Basophils % (A) 1 %; CH 30.2; CHCM 34.5; Eosinophils # (A) 0.1 k/uL (0-0.7); Eosinophils % (A) 0 %; HDW 3.42; HGB 11.2 gm/dL (11.4-16.0); Luc # (Auto) 0.24; Luc % (Auto) 2; Lymphocytes # (A) 1.4 k/uL (1.0-4.8); Lymphocytes % (A) 13 %; MCH 29.9 pg (25.0-35.0); MCV 87.9 fL (80.0-100.0); Mean Platelet Volume 6.4; Monocytes # (A) 0.6 k/uL (0-1.0); Monocytes % (A) 6 %; Neutrophils # (A) 8.9 k/uL (1.3-7.7); Neutrophils % (A) 78 %; Poikilocytosis Slight; RBC 3.76 m/uL (3.80-5.40); RDW 14.2 % (11.5-15.5); WBC 11.4 k/uL (3.8-10.6); WBC (Perox) 11.51
[2017-01-22 06:39] LABS: ALT 47 U/L (9-52); AST 27 U/L (14-36); Alkaline Phosphatase 227 U/L (38-126); Anion Gap 11 mmol/L; Blood Urea Nitrogen 10 mg/dL (7-17); Calcium 8.6 mg/dL (8.4-10.2); Carbon Dioxide 26 mmol/L (22-30); Chloride 106 mmol/L (98-107); Glucose 111 mg/dL (74-99); Magnesium 1.6 mg/dL (1.6-2.3); Non-African American GFR(MDRD) >60 (>60 ml/min/1.73 sqM); Potassium 3.2 mmol/L (3.5-5.1); Sodium 143 mmol/L (137-145); Total Bilirubin 0.5 mg/dL (0.2-1.3); Total Protein 6.4 g/dL (6.3-8.2)
--- NOTE | 2017-01-22 06:50 | P.CONS ---
History of Present Illness - Chief Complaint Gait disturbance - History of Present Illness I had the op to see patient for inpatient rehab consultation with regard to gait disturbance. 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 Patient transferred to hospice care. Family has however change their minds with regard to this and now asking for full treatment. Patient readmitted to [facility] January 20. Seen in consultation by pulmonary, psychiatry, Dr. To. Note pulmonary diagnosed right lower lobe pneumonia. Speech therapy reassess swallowing on regular consistency and thin liquid. OT reports maximal assistance upper dressing total assistance for lower dressing and bathing. Physical therapy prescribed. Previous functional history as elicited from patient: Appears to be consistent with the more than a few weeks ago. 46-year-old right-handed white female is lives in one floor home. History of smoking but doesn't smoke or drink or admit to recreational drugs. Describes previously independent with cooking, laundry, driving. Regular doctors Dr. Haque. This OF course all changed to January 08. Review of Systems Review of systems: ENT: Denies sneezes or discharge. Eyes: Denies discharge or photophobia. Cardiac: Denies chest pain or palpitation. Pulmonary: Denies cough or shortness of breath. Breast: Denies discharge or lumps. Gastrointestinal: Denies nausea, emesis, constipation, diarrhea. Genitourinary: Denies discharge or frequency. Musculoskeletal: Discomfort or aches in neck. Neurologic: Diminished cognition and generalized weakness. Endocrine: Denies shakes or sweats. Oncology: Denies cancers. Dermatologic: Denies rash, itching, pruritus. ALLERGY/immunology: Denies sneezes, rashes. 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 Organisms: MRSA Year Discovered:: 01/08/17 MDRO Source:: BLOOD Past Surgical History: Unable to Obtain, Appendectomy, Tubal Ligation Additional Past Surgical History / Comment(s): neck fusion Past Anesthesia/Blood Transfusion Reactions: No Reported Reaction, Unable to Obtain Past Psychological History: No Psychological Hx Reported, Unable to Obtain Smoking Status: Unknown if ever smoked Past Alcohol Use History: None Reported, Unable to Obtain Past Drug Use History: None Reported, Unable to Obtain Additional Drug Use History / Comment(s): tox screen positive - Past Family History Father History Unknown: Yes Family Medical History: Unable to Obtain Mother History Unknown: Yes Family Medical History: Unable to Obtain Medications and Allergies Home Medications Medication Instructions Recorded Confirmed Type Baclofen [Lioresal] 20 mg PO TID 01/08/17 01/20/17 History Choline Citrate 650mg 650 mg PO BID 01/08/17 01/20/17 History Cyanocobalamin (Vitamin B-12) 1,000 mcg PO DAILY 01/08/17 01/20/17 History [Vitamin B-12] Folic Acid 0.4 mg PO DAILY 01/08/17 01/20/17 History Gabapentin 600 mg PO Q4H 01/08/17 01/20/17 History HYDROcodone/IBUPROFEN [Xylon 0.5 tab PO BID 01/08/17 01/20/17 History 10-200 mg Tablet] Levothyroxine Sodium [Synthroid] 137 mcg PO DAILY 01/08/17 01/20/17 History Loratadine 10 mg PO DAILY 01/08/17 01/20/17 History Morphine Sulfate [Ms Contin] 15 mg PO HS 01/08/17 01/20/17 History Morphine Sulfate [Ms Contin] 30 mg PO QAM 01/08/17 01/20/17 History Naproxen 500 mg PO Q12H 01/08/17 01/20/17 History Nortriptyline [Pamelor] 100 mg PO HS 01/08/17 01/20/17 History Omeprazole 40 mg PO DAILY 01/08/17 01/20/17 History Oxybutynin Chloride [Ditropan] 5 mg PO TID 01/08/17 01/20/17 History Pyridoxine [Vitamin B-6] 50 mg PO DAILY 01/08/17 01/20/17 History Allergies Allergy/AdvReac Type Severity Reaction Status Date / Time acetaminophen Allergy Unknown Verified 01/16/17 13:38 aspirin Allergy Rash/Hives Verified 01/16/17 13:38 DAIRY Allergy Vomiting Uncoded 01/08/17 17:54 Physical Exam Vitals: Vital Signs Temp Pulse Pulse Resp BP Pulse Ox 01/21/17 23:00 97.6 F 57 L 17 151/82 95 01/21/17 20:30 72 01/21/17 20:16 70 01/21/17 15:39 66 16 01/21/17 15:00 97.9 F 58 L 16 135/66 90 L 01/21/17 07:47 66 16 01/21/17 07:00 99.1 F 66 16 122/68 93 L Intake and Output 01/21/17 01/21/17 01/22/17 14:59 22:59 06:59 Intake Total 890 350 Output Total 400 400 Balance 490 -50 Intake: Intake, IV Titration 650 250 Amount Piperacillin-Tazobactam 3 50 .375 gm In Dextrose/Water 1 50ml.bag @ 12.5 mls/hr IVPB Q8HR RAGHU Rx#: [id number] Sodium Chloride 0.9% 1, 600 000 ml @ 75 mls/hr IV . [id number] RAGHU Rx#:[id number] Vancomycin 1,750 mg In 250 Sodium Chloride 0.9% 250 ml @ 125 mls/hr IVPB Q12H RAGHU Rx#:[id number] Oral 240 100 Output: Urine 400 400 Other: Voiding Method Indwelling Catheter Bedside Commode # Voids 2 1 2 # Bowel Movements 2 1 2 Weight 79.5 kg 79.5 kg Patient Weight 01/22/17 06:59 Weight 79.5 kg Skin: Good color, texture, turgor. General: Medium build and comfortable appearance. Head: Normocephalic, atraumatic. Eyes: Symmetric. Pupils equal round. Ears: Symmetric. Hearing within normal limits. Mouth: Clear. Neck: Supple. Carotid without bruit. Cardiac: Regular rate and rhythm. Lungs: Clear anteriorly and posteriorly. Abdomen: Soft active nontender. Extremities: Tone decreased all limbs, slightly. Neurological: Mental status: Alert, cooperative, pleasant. Cranial nerves: Symmetric facial tone and trapezius. Motor: Active movement all limbs at about antigravity. Sensation: Intact throughout. DTRs: Symmetric and equal throughout. Mobility: Did not attempt to sit or stand as would require second person for safety. Results CBC & Chem 7: 01/22/17 06:15 01/22/17 06:15 Labs: Abnormal Lab Results - Last 24 Hours (Table) 01/21/17 01/21/17 01/21/17 Range/Units 07:40 07:40 12:20 WBC (3.8-10.6) k/uL RBC 3.66 L (3.80-5.40) m/uL Hgb 10.9 L (11.4-16.0) gm/dL Hct 32.9 L (34.0-46.0) % Plt Count 712 H (150-450) k/uL Neutrophils # (1.3-7.7) k/uL Potassium (3.5-5.1) mmol/L Glucose (74-99) mg/dL ALT 59 H (9-52) U/L Alkaline Phosphatase 269 H (38-126) U/L Total Protein 6.2 L (6.3-8.2) g/dL Albumin 3.0 L (3.5-5.0) g/dL Urine Appearance Cloudy H (Clear) Urine Ketones 2+ H (Negative) Urine Blood Small H (Negative) Ur Leukocyte Esterase Moderate H (Negative) Urine RBC 51 H (0-5) /hpf Urine WBC 22 H (0-5) /hpf Urine Mucus Rare H (None) /hpf Urine Yeast (Budding) Many H (None) /hpf 01/22/17 01/22/17 Range/Units 06:15 06:15 WBC 11.4 H (3.8-10.6) k/uL RBC 3.76 L (3.80-5.40) m/uL Hgb 11.2 L (11.4-16.0) gm/dL Hct 33.0 L (34.0-46.0) % Plt Count 777 H (150-450) k/uL Neutrophils # 8.9 H (1.3-7.7) k/uL Potassium 3.2 L (3.5-5.1) mmol/L Glucose 111 H (74-99) mg/dL ALT (9-52) U/L Alkaline Phosphatase 227 H (38-126) U/L Total Protein (6.3-8.2) g/dL Albumin 3.2 L (3.5-5.0) g/dL Urine Appearance (Clear) Urine Ketones (Negative) Urine Blood (Negative) Ur Leukocyte Esterase (Negative) Urine RBC (0-5) /hpf Urine WBC (0-5) /hpf Urine Mucus (None) /hpf Urine Yeast (Budding) (None) /hpf Microbiology - Last 24 Hours (Table) 01/21/17 12:20 Urine Culture - Preliminary Urine,Catheterized Assessment and Plan (1) Aspiration pneumonia Status: Acute Plan: Impression: 1. Gait disturbance. 2. Encephalopathy related to anoxia. 3. Right lower lobe pneumonia. 4. Polysubstance overdose. 5. Thyroid disorder. Comments and plan: At this time PT, OT, RADIO STATION OPERATOR ongoing. We'll follow therapies with yourself. We'll follow for possible inpatient rehab.
[2017-01-22] MEDS ORDERED: VANCOMYCIN TROUGH DUE 1 EACH MISC MISCELLANE ONE (07:15)
[2017-01-22] MEDS: IPRATROPIUM-ALBUTEROL 3 ML NEB INHALATION SCH ×3 (08:00→20:46)
[2017-01-22] MEDS: BUDESONIDE 0.5 MG/2 ML NEBU INHALATION SCH ×2 (08:00→20:46)
--- NOTE | 2017-01-22 08:10 | XR ---
EXAMINATION TYPE: XR chest 2V DATE OF EXAM: 01/22/2017 COMPARISON: CT chest dated 01/15/2017. HISTORY: Shortness of breath and history of overdose. TECHNIQUE: Frontal and lateral views of the chest are obtained. FINDINGS: Focal consolidation is seen within the right lower lobe and to a lesser degree within the right middle lobe with a small amount of intrafissural fluid in the minor fissure. Trace bilateral pl eural effusions are seen as well as left basilar atelectasis. Right central venous catheter terminate s in the cavoatrial junction. Cardia mediastinal silhouette is within normal limits. Osseous structur es are intact. IMPRESSION: Focal consolidation within the right lower lobe and to a lesser degree within the right middle lobe suggestive of aspiration pneumonia corresponding to the prior CT chest findings of 017. Scattered atelectasis and trace effusions are also noted.
[2017-01-22] MEDS: VANCOMYCIN 1,750 MG in SODIUM CHLORIDE 0.9% 250 ML IVPB SCH ×2 (08:33→19:43)
[2017-01-22] MEDS: CYANOCOBALAMIN 500 MCG TAB PO SCH (08:36)
[2017-01-22] MEDS: NAPROXEN 250 MG TAB PO SCH ×2 (08:36→19:43)
[2017-01-22] MEDS: PANTOPRAZOLE 40 MG TABLET PO SCH (08:36)
[2017-01-22] MEDS: BACLOFEN 10 MG TAB PO SCH ×3 (08:37→21:36)
[2017-01-22] MEDS: OXYBUTYNIN CHLORIDE 5 MG TAB PO SCH ×3 (08:37→21:36)
[2017-01-22] MEDS: MORPHINE SULFATE ER 15 MG TABLET PO SCH ×2 (08:43→08:45)
[2017-01-22] MEDS: ONDANSETRON 4 MG/2 ML VIAL IVP PRN (08:47)
[2017-01-22] MEDS: SODIUM CHLORIDE 0.9% 1,000 ML IV SCH ×2 (09:19→13:10)
--- NOTE | 2017-01-22 10:54 | CONS ---
DATE OF SERVICE: 01/21/2017 REASON FOR CONSULTATION: Antibiotic recommendation. HISTORY OF PRESENT ILLNESS: The patient is a 46-year-old female who initially presented to [facility] on January 08 with ( ) with vomiting requiring intubation and vent support. The patient during that admission did have evidence of MRSA bacteremia which was thought to be related to possible aspiration pneumonia as there was no clear history of any IV drug use. Patient's family decided to go for hospice and so the patient was extubated for terminal wean and hospice care. The antibiotic was discontinued on 01/16; however, over the next few days the patient did have significant neurological recovery and the family decided yesterday to stop the hospice care and to resume her medical management. Patient was started back on the Zosyn and the vancomycin. I was asked to see the patient for further recommendation in regards to her antibiotic therapy. The patient remains to be slightly lethargic and sleepy and did not provide a reliable history when specifically ( ) questioned, so most of the information has been obtained from review of the chart and talking to the nursing staff. REVIEW OF SYSTEMS: Could not be reliably obtained, but the positives has been mentioned in the HPI. PAST MEDICAL HISTORY: Hypothyroidism. The patient did have acute respiratory failure from aspiration pneumonia and MRSA bacteremia. PAST SURGICAL HISTORY: Tubal ligation, appendectomy. SOCIAL HISTORY: Positive for drug use, probably history of drinking or smoking. FAMILY HISTORY: No pertinent findings were noticed. Allergies to ACETAMINOPHEN and ASPIRIN. Medications include the patient is currently on DuoNeb, Baclofen, Pulmicort, Vitamin B12, folic acid, Synthroid, vancomycin pharmacy to dose, MS Contin, naproxen, Zofran, Ditropan, piperacillin-tazobactam. On examination, her blood pressure is 135/66 with a pulse of 58, temperature 97.9. She is 90% on room air. General description is a middle age female lying in bed in no distress with no tachypnea or accessory muscle of respiration use. HEENT examination shows slight pallor. No scleral icterus. Oral mucous membrane dry. NECK: Trachea central. No thyromegaly. LUNGS: Unlabored breathing. Coarse breath sounds at the bases bilaterally. No wheeze. HEART: S1 and S2, regular rate and rhythm. ABDOMEN: Soft, no tenderness. EXTREMITIES: No edema of feet. SKIN EXAMINATION: No rashes or masses palpable. NEUROLOGICALLY: The patient remains to be lethargic, orientation could not be determined. LABS: Hemoglobin is 10.9, white count 9.6 with a BUN of 14 and creatinine 0.53. Liver enzymes are slightly elevated. DIAGNOSTIC IMPRESSION AND PLAN: Patient with a recent admission to the hospital with drug overdose and component of aspiration pneumonia. The patient also had evidence MRSA bacteremia though the follow-up blood cultures were negative and did receive vancomycin from January 16 and ( ) 3 days of IV antibiotic therapy. Now with resumption of the medical care because of overall improvement in neurological status. PLAN: 1. Blood cultures to be repeated to make sure no evidence of any recurrence of her bacteremia. 2. Repeat a chest x-ray to review. 3. The patient will continue on vancomycin pharmacy to dose ( ) blood cultures for which ( ) once the follow-up blood culture is negative. 4. We will followup on the clinical condition and culture to further adjust medication if needed. Thank you for this consultation. We will follow this patient along with you. CLARI
[2017-01-22] MEDS: PIPERACILLIN-TAZOBACTAM 3.375 GM in DEXTROSE/WATER 1 50ML.BAG IVPB SCH ×3 (11:40→23:38)
--- NOTE | 2017-01-22 11:51 | P.PN ---
Subjective 01/21/17-This is a 46-year-old female patient being seen, examined and evaluated today on the fifth floor. This patient originally presented to the emergency room on 01/08/2017 via EMS for overdose. Apparently the patient was at home and her roommate found her unresponsive around multiple bottles of pills, therefore the remaining forced her to vomit before EMS arrived. When EMS arrived they did note that there was pill fragments in her vomit. EMS did give the patient Narcan with minimal improvement of her symptoms. It is unclear what medications the patient did consume however there is speculation that it was morphine, gabapentin and baclofen. The patient's urine drug screen was positive for opiates, tricyclic antidepressants, cocaine and marijuana. Poison control was also following the patient. The patient was on mechanical ventilation with propofol for sedation she also noted to have a right lower lobe aspiration pneumonia. The patient was on mechanical ventilation for several days and had a neurological evaluation as well. It was felt that the patient suffered an anoxic brain injury and after 2 brain CTs and 3 EEGs. The patient was not showing any neurological improvements or advancement. The patient's power of county attorney Natalya was updated daily on her condition and Natalya was requesting that the patient be made comfort care with hospice. The patient was trialed on CPAP with his sedation holidays on a daily basis and again before extubation and the patient was unable to tolerate it, her heart rate as well as a respiratory rate increased significantly. Patient was ultimately switched over to comfort care/hospice per power of county attorney's request. Apparently over the last 2 days the patient was showing some clinical improvement therefore the patient's power of county attorney Natalya requested we take her off of hospice and restart medical management. Upon examination today the patient is resting up in bed and is somewhat lethargic, she is able to follow simple commands, she is extremely weak and has some shortness of breath with activity. Patient is able to recall some of her long-term memory, however short -term memory seems to be impaired. Patient does not remember coming to the hospital or why she is here. She does recognize her daughter as well as her mother at bedside. Currently she is on a pured diet and is tolerating that well. Patient denies any pain or any further complaints. 01/22/17- Asians being seen examined and evaluated on the fifth floor today. Patient is doing well she is resting up in bed on room air. All labs chest x- ray has been reviewed. Chest x-ray does show focal, consolidation within the right lower lobe and to a lesser degree within the right middle lobe suggestion of her aspiration pneumonia. Scattered atelectasis and trace effusions are also noted. Overall the patient states she is feeling better in regards to her breathing. Denies any cough or congestion at this time does have some shortness of breath with exertion. She may be a candidate for possible inpatient rehabilitation. Objective - Vital Signs Vital signs: Vital Signs Temp 97.1 F L 01/22/17 07:00 Pulse 86 01/22/17 07:00 Resp 20 01/22/17 07:00 BP 135/87 01/22/17 07:00 Pulse Ox 95 01/22/17 07:00 Intake & Output 01/21/17 01/22/17 01/22/17 18:59 06:59 18:59 Intake Total 890 350 Output Total 800 Balance 90 350 Weight 79.5 kg Intake: Intake, IV Titration 650 250 Amount Piperacillin-Tazobactam 3 50 .375 gm In Dextrose/Water 1 50ml.bag @ 12.5 mls/hr IVPB Q8HR [facility]AG[facility] Rx#: [id number] Sodium Chloride 0.9% 1, 600 000 ml @ 75 mls/hr IV . [id number] RAGHU Rx#:[id number] Vancomycin 1,750 mg In 250 Sodium Chloride 0.9% 250 ml @ 125 mls/hr IVPB Q12H RAGHU Rx#:[id number] Oral 240 100 Output: Urine 800 Other: Voiding Method Indwelling Catheter Bedside Commode # Voids 2 2 # Bowel Movements 2 2 - Exam GENERAL EXAM: Alert, lethargic, comfortable in no apparent distress. HEAD: Normocephalic. EYES: Normal reaction of pupils, equal size. NOSE: Clear with pink turbinates. THROAT: No erythema or exudates. NECK: No masses, no JVD. CHEST: No chest wall deformity. LUNGS: Lung sounds noted to be coarse throughout. Equal air entry with no crackles, wheeze, rhonchi or dullness. Bases diminished. CVS: S1 and S2 normal with no audible mumurs, regular rhythm. ABDOMEN: No hepatosplenomegaly, normal bowel sounds, no guarding or rigidity. EXTREMITIES: No edema noted, pedal pulses palpable. SKIN: No rashes CENTRAL NERVOUS SYSTEM: No focal deficits, tone is normal in all 4 extremities. - Labs CBC & Chem 7: 01/22/17 06:15 01/22/17 06:15 Labs: Abnormal Lab Results - Last 24 Hours (Table) 01/21/17 01/22/17 01/22/17 Range/Units 12:20 06:15 06:15 WBC 11.4 H (3.8-10.6) k/uL RBC 3.76 L (3.80-5.40) m/uL Hgb 11.2 L (11.4-16.0) gm/dL Hct 33.0 L (34.0-46.0) % Plt Count 777 H (150-450) k/uL Neutrophils # 8.9 H (1.3-7.7) k/uL Potassium 3.2 L (3.5-5.1) mmol/L Glucose 111 H (74-99) mg/dL Alkaline Phosphatase 227 H (38-126) U/L Albumin 3.2 L (3.5-5.0) g/dL Urine Appearance Cloudy H (Clear) Urine Ketones 2+ H (Negative) Urine Blood Small H (Negative) Ur Leukocyte Esterase Moderate H (Negative) Urine RBC 51 H (0-5) /hpf Urine WBC 22 H (0-5) /hpf Urine Mucus Rare H (None) /hpf Urine Yeast (Budding) Many H (None) /hpf Microbiology - Last 24 Hours (Table) 01/21/17 12:20 Urine Culture - Preliminary Urine,Catheterized Assessment and Plan Plan: Assessment Acute hypoxic respiratory failure Aspiration pneumonia, right lower lobe, likely related to MRSA which is isolated in the blood, sputum also did have gram-positive cocci overall appeared to be MRSA pneumonia and bacteremia Severe sepsis with septic shock Drug overdose, unclear if it was intentional or unintentional Encephalopathy likely related to medication with comatose state, improved Drug overdose and polysubstance abuse Plan Patient would like to go to a rehab facility and she is being evaluated to do so. Patient's power of county attorney Natalya is at bedside and updated on patient current condition as well as plan of care. All questions have been answered. Medications have been reviewed and will be continued as ordered. We will add nebulizer treatments. Chest x-ray has been reviewed as well as labs. Neurology on consult and appreciate any recommendations. Initiate and encourage incentive spirometer. Continue with pulmonary hygiene, coughing and deep breathing exercises, and supportive care. Supplemental oxygen to maintain oxygen saturations of 92% or better. Continue nebulizer treatments. GI and DVT prophylaxis. We will continue to monitor labs/results and adjust treatment as necessary. Further recommendations pending. I performed an examination of the patient and discussed their management with the nurse practitioner. I have reviewed the nurse practitioner's note and agree with the documented findings and plan of care.
[2017-01-22] MEDS: FOLIC ACID 1 MG TAB PO SCH (13:12)
--- NOTE | 2017-01-22 15:45 | P.PN ---
Subjective 46-year-old female being seen and examined this morning is currently much more awake and alert. Sitting up on the edge of the bed taking a diet asking to diet be increased. Patient has participated with physical therapy this morning. Currently is denying any shortness of breath. Currently is on room air. Hospital course on January 21 patient was on hospice care per family's request after the patient was admitted on January 08 via the EMS for a polysubstance drug overdose. The roommate found the patient unresponsive with multiple bottles of pills. The EMS arrived prior to arrival patient roommate forced her to vomit before the EMS arrived. Apparently the EMS noted that there were pill fragments in her vomit. EMS did give the patient Narcan with slight improvement. Was not clear what the patient did consume her take. The drug screen did come back positive for cocaine, marijuana, depressive, and opiates. In the emergency room patient was noted to be experiencing acute hypoxic respiratory failure started on mechanical ventilation with propofol for sedation and admitted to the intensive care unit. Patient was treated for right lower lobe aspiration pneumonia. Patient was followed by pulmonary and neurology service. Throughout the hospitalization in the intensive care unit the patient had 2 brain scans in 3 cheese was felt to have suffered an anoxic brain injury. The patient's daughter Natalya was power of civil rights attorney and family were updated daily while in the ICU. The power of civil rights attorney Natalya opt for comfort care with hospice. Patient apparently was extubated and transferred to hospice comfort care unit where apparently the patient within the next 24 hours started to show clinical improvement. Given the patient's clinical improvement Natalya the power of civil rights attorney was requesting the patient be taken off hospice and restarted on medical management this was initiated patient was discharged from hospice unit and admitted to the medical floor on January 21 . Patient was initially evaluated for swallowing eval was started on a pureed diet this was able to be advanced patient was tolerating it . Physical and occupational therapy participating in the plan of care infectious disease recommended the patient have blood cultures redrawn on January 21 . Patient's to be evaluated for possible inpatient rehab Objective - Vital Signs Vital signs: Vital Signs Temp 97.1 F L 01/22/17 07:00 Pulse 78 01/22/17 14:11 Resp 20 01/22/17 07:00 BP 135/87 01/22/17 07:00 Pulse Ox 95 01/22/17 07:00 Intake & Output 01/21/17 01/22/17 01/22/17 18:59 06:59 18:59 Intake Total 890 350 Output Total 800 Balance 90 350 Weight 79.5 kg Intake: Intake, IV Titration 650 250 Amount Piperacillin-Tazobactam 3 50 .375 gm In Dextrose/Water 1 50ml.bag @ 12.5 mls/hr IVPB Q8HR [facility] Rx#: [id number] Sodium Chloride 0.9% 1, 600 000 ml @ 75 mls/hr IV . [id number] [facility] Rx#:[id number] Vancomycin 1,750 mg In 250 Sodium Chloride 0.9% 250 ml @ 125 mls/hr IVPB Q12H [facility] Rx#:[id number] Oral 240 100 Output: Urine 800 Other: Voiding Method Indwelling Catheter Bedside Commode # Voids 2 2 2 # Bowel Movements 2 2 1 - Exam Physical exam 46-year-old female sitting up on the edge of the bed is asking for more food oriented to self and place no real recall of event pleasant and cooperative Lungs diminished at the bases otherwise adequate air movement on room air no cough noted no shortness breath Heart S1-S2 audible denying heart palpitation denying chest pain Abdomen soft not distended nontender indwelling Yuan catheter has been removed urinating no difficulty no incontinence noted having stools Extremities no edema noted. Patient will move extremities to simple command - Labs CBC & Chem 7: 01/22/17 06:15 01/22/17 06:15 Labs: Abnormal Lab Results - Last 24 Hours (Table) 01/22/17 01/22/17 Range/Units 06:15 06:15 WBC 11.4 H (3.8-10.6) k/uL RBC 3.76 L (3.80-5.40) m/uL Hgb 11.2 L (11.4-16.0) gm/dL Hct 33.0 L (34.0-46.0) % Plt Count 777 H (150-450) k/uL Neutrophils # 8.9 H (1.3-7.7) k/uL Potassium 3.2 L (3.5-5.1) mmol/L Glucose 111 H (74-99) mg/dL Alkaline Phosphatase 227 H (38-126) U/L Albumin 3.2 L (3.5-5.0) g/dL Microbiology - Last 24 Hours (Table) 01/21/17 12:20 Urine Culture - Preliminary Urine,Catheterized Assessment and Plan Plan: Impression A recent 01/08/2017 episode of acute hypoxic respiratory failure suspect due to a polysubstance drug overdose resolved Blood cultures positive for MRSA Chest x-ray right upper lobe pneumonia continues to persist A recent 01/08/2017 episode of acute metabolic encephalopathy suspect due to medication with a comatose state improved resolved A recent event 01/08/2017 Drug overdose unclear if intentional or unintentional A recent 01/08/2017 episode of severe sepsis with septic shock suspect due to MRSA pneumonia and bacteremia resolved Recent episode January 08 aspiration pneumonia right lower lobe likely due to MRSA with acute hypoxic respiratory failure Chest x-ray right side pneumonia persist Debilitated due to current event Anoxic Encephalopathy related to anoxic brain injury suspect due to polysubstance drug overdose intentional unintentional unknown episode occurred 01/08/2017 slowly improving Gait disturbance suspect due to current event Recent episode of MRSA bacteremia thought to be related to aspiration pneumonia on 01/08/2017 Plan Resume IV antibiotics as ordered Aspiration precautions DVT and GI prophylaxis Edin wrap marketing automation manager to pursue the discharge plan Resume home meds as appropriate Further recommendations pending PT OT eval Follow up on the pending blood cultures from infectious disease The above impression and plan of care have been discussed and directed by signing physician. Vero Hernandez nurse practitioner acting as scribe for signing physician.
[2017-01-22] MEDS: HEPARIN SODIUM,PORCINE 5,000 UNIT/ML 1 ML VIAL SQ SCH ×2 (16:02→23:38)
--- NOTE | 2017-01-22 17:41 | PN ---
DATE OF SERVICE: 01/22/2017 REASON FOR FOLLOWUP: MRSA bacteremia and pneumonia. INTERVAL HISTORY: The patient is afebrile. She is more awake and alert. She is breathing comfortably. She denies any significant chest pain or shortness of breath. Occasional cough. No abdominal pain. No diarrhea. On examination, blood pressure 120/65 with a pulse of 61, temperature 98.5. She is 96% on room air. General description is a middle-aged female lying in bed in no distress. RESPIRATORY SYSTEM: Unlabored breathing. Clear to auscultation anteriorly. HEART: S1, S2. Regular rate and rhythm. ABDOMEN: Soft. No tenderness. LABS: Hemoglobin 11.3, white count 9. 4 with a BUN of 10, creatinine 0.64. Blood culture has been negative so far. She did have a positive UA but the culture is negative. X-ray did show evidence of pneumonia. DIAGNOSTIC IMPRESSION AND PLAN: Patient admitted to hospital with overdose, unresponsiveness in a patient who did have evidence of aspiration pneumonia and MRSA bacteremia. Patient at this time will continue on vancomycin, Pharmacy to dose, for another 10 days to complete course of therapy. As far as pneumonia and possible UTI, we will try to obtain a sputum sample; however, if there is no resistant pathogen, she will be able to finish therapy with oral Augmentin therapy. Continue supportive care. MTDD
[2017-01-23] MEDS: VANCOMYCIN 1,750 MG in SODIUM CHLORIDE 0.9% 250 ML IVPB SCH ×2 (05:34→19:38)
[2017-01-23] MEDS: LEVOTHYROXINE 137 MCG TAB PO SCH (05:34)
[2017-01-23] MEDS: SODIUM CHLORIDE 0.9% 1,000 ML IV SCH ×2 (05:34→07:45)
[2017-01-23] MEDS: IPRATROPIUM-ALBUTEROL 3 ML NEB INHALATION SCH ×3 (07:18→19:05)
[2017-01-23] MEDS: BUDESONIDE 0.5 MG/2 ML NEBU INHALATION SCH ×2 (07:18→19:05)
[2017-01-23] MEDS: HEPARIN SODIUM,PORCINE 5,000 UNIT/ML 1 ML VIAL SQ SCH ×2 (07:47→15:37)
[2017-01-23] MEDS: PANTOPRAZOLE 40 MG TABLET PO SCH (07:48)
[2017-01-23] MEDS: CYANOCOBALAMIN 500 MCG TAB PO SCH (07:48)
[2017-01-23] MEDS: BACLOFEN 10 MG TAB PO SCH ×3 (07:49→20:00)
[2017-01-23] MEDS: PIPERACILLIN-TAZOBACTAM 3.375 GM in DEXTROSE/WATER 1 50ML.BAG IVPB SCH ×2 (07:49→15:36)
[2017-01-23] MEDS: NAPROXEN 250 MG TAB PO SCH ×2 (07:50→19:56)
[2017-01-23] MEDS: OXYBUTYNIN CHLORIDE 5 MG TAB PO SCH ×3 (07:51→20:00)
[2017-01-23] MEDS: MORPHINE SULFATE ER 15 MG TABLET PO SCH (07:55)
--- NOTE | 2017-01-23 09:53 | P.PN ---
Subjective 46-year-old female being seen on rounds this morning. Currently is sitting up in a chair taking a diet. Family at bedside updated on plan of care. Discharge planning is in progress being evaluated for possible subacute rehab awaiting further input per Dr. Tolbert patient currently is talkative cooperative but is staying "not going to go to rehab" patient has been participating in physical and occupational therapy continues to show cognitive improvement increasingly more awake and alert oriented to person and place no recall of event Objective - Vital Signs Vital signs: Vital Signs Temp 98.5 F 01/23/17 07:00 Pulse 78 01/23/17 07:38 Resp 16 01/23/17 07:24 BP 146/81 01/23/17 07:00 Pulse Ox 98 01/22/17 23:00 Intake & Output 01/22/17 01/23/17 01/23/17 18:59 06:59 18:59 Intake Total 450 Balance 450 Intake: Intake, IV Titration 250 Amount Vancomycin 1,750 mg In 250 Sodium Chloride 0.9% 250 ml @ 125 mls/hr IVPB BID@ 0600,1999 [facility] Rx#: [id number] Oral 200 Other: Voiding Method Bedside Commode # Voids 2 3 # Bowel Movements 1 - Exam Physical exam 46-year-old female sitting up in a chair. Talkative cooperative oriented to person and place Lungs diminished at the bases otherwise adequate air movement on room air no cough noted no shortness breath Heart S1-S2 audible denying heart palpitation denying chest pain Abdomen soft not distended nontender no frequent stooling Extremities no edema noted. - Labs CBC & Chem 7: 01/22/17 06:15 01/22/17 06:15 Labs: Microbiology - Last 24 Hours (Table) 01/21/17 12:20 Urine Culture - Final Urine,Catheterized Micki glabrata 01/21/17 13:31 Blood Culture - Preliminary Blood No Growth after 24 hours Assessment and Plan Plan: Impression Recent admission on 01/08/2017 for acute hypoxic respiratory failure suspect due to a polysubstance drug overdose resolved Recent Blood cultures positive for MRSA Chest x-ray right upper lobe pneumonia Recent admission 01/08/2017 acute metabolic encephalopathy suspect due to medication Recent admission for treatment of on 01/08/2017 Drug overdose unclear if intentional or unintentional recent admission and treatment for on 01/08/2017 severe recent admission 01/08/2017 for treatment of sepsis with septic shock suspect due to MRSA pneumonia and bacteremia Recent admission treatment for on 01/08/2017 aspiration pneumonia right lower lobe likely due to MRSA with acute hypoxic respiratory failure Urine culture present on admission positive for UTI with Micki Plan Aspiration precautions DVT and GI prophylaxis Resume home meds as appropriate Further recommendations pending Continue with PT OT Discharge plan in progress anticipate subacute rehab placement need to discuss with infection disease antibiotics recommendations The above impression and plan of care have been discussed and directed by signing physician. Vero Hernandez nurse practitioner acting as scribe for signing physician.
[2017-01-23] MEDS ORDERED: LIDOCAINE 2% INJ 20 MG/ML (20 ML MDV) ONE (10:26)
[2017-01-23] MEDS ORDERED: LIDOCAINE 2% INJ 20 MG/ML SQ ONE (10:50)
--- NOTE | 2017-01-23 10:50 | P.PN ---
Subjective 01/21/17-This is a 46-year-old female patient being seen, examined and evaluated today on the fifth floor. This patient originally presented to the emergency room on 01/08/2017 via EMS for overdose. Apparently the patient was at home and her roommate found her unresponsive around multiple bottles of pills, therefore the remaining forced her to vomit before EMS arrived. When EMS arrived they did note that there was pill fragments in her vomit. EMS did give the patient Narcan with minimal improvement of her symptoms. It is unclear what medications the patient did consume however there is speculation that it was morphine, gabapentin and baclofen. The patient's urine drug screen was positive for opiates, tricyclic antidepressants, cocaine and marijuana. Poison control was also following the patient. The patient was on mechanical ventilation with propofol for sedation she also noted to have a right lower lobe aspiration pneumonia. The patient was on mechanical ventilation for several days and had a neurological evaluation as well. It was felt that the patient suffered an anoxic brain injury and after 2 brain CTs and 3 EEGs. The patient was not showing any neurological improvements or advancement. The patient's power of attorney lawyer Natalya was updated daily on her condition and Natalya was requesting that the patient be made comfort care with hospice. The patient was trialed on CPAP with his sedation holidays on a daily basis and again before extubation and the patient was unable to tolerate it, her heart rate as well as a respiratory rate increased significantly. Patient was ultimately switched over to comfort care/hospice per power of attorney lawyer's request. Apparently over the last 2 days the patient was showing some clinical improvement therefore the patient's power of attorney lawyer Natalya requested we take her off of hospice and restart medical management. Upon examination today the patient is resting up in bed and is somewhat lethargic, she is able to follow simple commands, she is extremely weak and has some shortness of breath with activity. Patient is able to recall some of her long-term memory, however short -term memory seems to be impaired. Patient does not remember coming to the hospital or why she is here. She does recognize her daughter as well as her mother at bedside. Currently she is on a pured diet and is tolerating that well. Patient denies any pain or any further complaints. 01/22/17- Patient being seen examined and evaluated on the fifth floor today. Patient is doing well she is resting up in bed on room air. All labs chest x- ray has been reviewed. Chest x-ray does show focal, consolidation within the right lower lobe and to a lesser degree within the right middle lobe suggestion of her aspiration pneumonia. Scattered atelectasis and trace effusions are also noted. Overall the patient states she is feeling better in regards to her breathing. Denies any cough or congestion at this time does have some shortness of breath with exertion. She may be a candidate for possible inpatient rehabilitation. 01/23/17- patient being examined and evaluated 17 on rounds. Currently the patient's resting up in a chair on room air. overall the patient feels better today , speech therapy is evaluating the patient today and she appears to be reluctant to participate. her family is at bedside have been updated on the patient's plan of care and prognosis. patient will have a PICC line insertion today. discharge planning is in process it is unclear whether the patient will go home with home care or go to a subacute rehab facility. patient denies any shortness of breath coughing or congestion today. Objective - Vital Signs Vital signs: Vital Signs Temp 98.5 F 01/23/17 07:00 Pulse 78 01/23/17 07:38 Resp 16 01/23/17 07:24 BP 146/81 01/23/17 07:00 Pulse Ox 98 01/22/17 23:00 Intake & Output 01/22/17 01/23/17 01/23/17 18:59 06:59 18:59 Intake Total 450 Balance 450 Intake: Intake, IV Titration 250 Amount Vancomycin 1,750 mg In 250 Sodium Chloride 0.9% 250 ml @ 125 mls/hr IVPB BID@ 06,1999 [facility] Rx#: [id number] Oral 200 Other: Voiding Method Bedside Commode # Voids 2 3 # Bowel Movements 1 - Exam GENERAL EXAM: Alert, comfortable in no apparent distress. HEAD: Normocephalic. EYES: Normal reaction of pupils, equal size. NOSE: Clear with pink turbinates. THROAT: No erythema or exudates. NECK: No masses, no JVD. CHEST: No chest wall deformity. LUNGS: Lung sounds noted to be coarse throughout. few faint expiratory wheezes noted. Bases diminished. CVS: S1 and S2 normal with no audible mumurs, regular rhythm. ABDOMEN: No hepatosplenomegaly, normal bowel sounds, no guarding or rigidity. EXTREMITIES: No edema noted, pedal pulses palpable. SKIN: No rashes CENTRAL NERVOUS SYSTEM: No focal deficits, tone is normal in all 4 extremities. - Labs CBC & Chem 7: 01/22/17 06:15 01/22/17 06:15 Labs: Microbiology - Last 24 Hours (Table) 01/21/17 12:20 Urine Culture - Final Urine,Catheterized Micki glabrata 01/21/17 13:31 Blood Culture - Preliminary Blood No Growth after 24 hours Assessment and Plan Plan: Assessment Acute hypoxic respiratory failure Aspiration pneumonia, right lower lobe, likely related to MRSA which is isolated in the blood, sputum also did have gram-positive cocci overall appeared to be MRSA pneumonia and bacteremia Severe sepsis with septic shock Drug overdose, unclear if it was intentional or unintentional Encephalopathy likely related to medication with comatose state, improved Drug overdose and polysubstance abuse Plan family at bedside and have been updated on patient's plan of care. patient is currently being evaluated to either be discharged in the future with home care or to go to a subacute rehab facility, this is to be taken place potentially on Thursday. Medications have been reviewed and will be continued as ordered. We will add nebulizer treatments. Chest x-ray has been reviewed as well as labs. Neurology on consult and appreciate any recommendations. Initiate and encourage incentive spirometer. Continue with pulmonary hygiene, coughing and deep breathing exercises, and supportive care. Supplemental oxygen to maintain oxygen saturations of 92% or better. Continue nebulizer treatments. GI and DVT prophylaxis. We will continue to monitor labs/results and adjust treatment as necessary. Further recommendations pending. I performed an examination of the patient and discussed their management with the nurse practitioner. I have reviewed the nurse practitioner's note and agree with the documented findings and plan of care.
--- NOTE | 2017-01-23 11:25 | IR ---
EXAMINATION TYPE: IR cvc insert >=5 years DATE OF EXAM: 01/23/2017 COMPARISON: NONE CLINICAL HISTORY: Bacteremia Needs long-term intravenous access for antibiotics. PROCEDURE: After informed consent, the skin overlying the left brachial vein was localized with ultrasound and n oted to be compressible and patent. An ultrasound image was obtained and submitted on the patient's chart. The overlying skin was prepped and draped and Lidocaine was used for local anesthesia. A ski n holger was made with a scalpel. Access was gained to the vein under ultrasound guidance with a 21 ga uge needle and a 0.018 inch wire was advanced. Access site was dilated with Peel-Away sheath and cat heter tailored to the appropriate length and advanced such that the distal tip is at the cavoatrial j unction. Spot image was obtained verifying placement. Catheter was fixed to the skin with suture an d a sterile dressing was placed following hemostasis. Catheter was aspirated and flushed with saline . Patient was discharged in stable condition without complication. Maximal barrier technique is util ized. Ultrasound image is documented on the chart. Ultrasound used with sterile technique. Fluoro time and fluoroscopic images submitted to document procedure: 0.2 minutes fluoroscopy time, 10 3 intraoperative C-arm images document the procedure IMPRESSION: STATUS POST ULTRASOUND AND FLUOROSCOPIC GUIDED PICC LINE PLACEMENT, READY FOR USE. THIS PROCEDURE WAS PERFORMED BY THE UNDERSIGNED.
[2017-01-23 12:20] LABS: Basophils # (A) 0.2 k/uL (0-0.2); Basophils % (A) 2 %; CH 29.9; CHCM 34.5; Eosinophils # (A) 0.1 k/uL (0-0.7); Eosinophils % (A) 1 %; HCT 32.1 % (34.0-46.0); HDW 3.59; HGB 11.6 gm/dL (11.4-16.0); Luc # (Auto) 0.16; Luc % (Auto) 2; Lymphocytes # (A) 1.7 k/uL (1.0-4.8); Lymphocytes % (A) 19 %; MCH 31.5 pg (25.0-35.0); MCHC 36.1 g/dL (31.0-37.0); Mean Platelet Volume 7.3; Monocytes # (A) 0.6 k/uL (0-1.0); Monocytes % (A) 6 %; Neutrophils # (A) 6.2 k/uL (1.3-7.7); Neutrophils % (A) 70 %; Poikilocytosis Slight; RBC 3.69 m/uL (3.80-5.40); RDW 14.8 % (11.5-15.5); WBC 8.9 k/uL (3.8-10.6); WBC (Perox) 8.92
[2017-01-23] MEDS: FOLIC ACID 1 MG TAB PO SCH (12:26)
[2017-01-23 13:05] LABS: Manual Review Performed; RBC Morphology Normal
--- NOTE | 2017-01-23 14:23 | P.PN ---
Progress Note - Text Interval History: Patient was seen in consultation after having taken an overdose of her medication, patient was seen initially on January 21 marriage to see the patient today, she was able to recall that I had seen her before and who I was. Patient was able to give a better history today and she states that she is aware that she took an overdose of her medications and that that is the reason for her hospitalization. She reports to me that she has no recollection of taking these pills in an attempt to commit suicide, stating she has never felt suicidal and has no history of prior attempts. She confirmed that she was not using alcohol but does use marijuana on a daily basis and has a medical marijuana card. She states that she recalls picking up her prescriptions and then taking some of her pills but recalls nothing after that. She states she is not currently suicidal and discussed with me finding out that her boyfriend had recently . She said that she is sad and tearful but stated that she is coping with her grief. Patient confirmed that she has had no prior psychiatric treatment and has never been treated for depression in the past. She stated she was given Pamelor when seen at [facility] for pain control. Patient states that she is hopeful to be discharged soon. She expressed no other concerns at this time. Mental Status: Appearance/Attitude: Patient was sitting on the edge of her hospital bed and appeared in no acute distress, she was cooperative with the interview. Behavior: Patient exhibited no psychomotor agitation or retardation. Speech/Language: She speech was spontaneous and of normal volume and rhythm and she was coherent. Thought Process: Patient was goal-directed there is no evidence of any circumstantial or tangential thought no flight of ideas or loose associations. Thought Content: Patient denied any auditory or visual hallucinations no delusions or paranoid ideation were elicited. Patient reported to me that she is coping with the loss of her boyfriend and states she has been tearful at times about it and is sad. She states that she was not feeling depressed and does not report feeling suicidal and states she did not take the overdose intentionally to kill herself. Patient reported that she is sad about her boyfriend's but denies feeling hopeless, worthless or despondent. She reports that she is feeling better physically. Suicidal/Homicidal Ideation: Patient denies any current suicidal or homicidal ideation Sensorium/Cognition: Patient was alert and oriented to person, place, and time and her memory was grossly intact. Mood/Affect: Patient's mood was euthymic and her affect was appropriate, she was tearful when discussing her boyfriend's . Insight/Judgement: Patient's insight and judgment are fair. Assessment: Patient is much more alert and much better historian today and confirms that she has never been seen for psychiatric care or his received treatment for any psychiatric concerns in the past. She reports no prior suicide attempts and states that she was not feeling depressed or suicidal prior to her overdose. Patient states she is coping with the information that her boyfriend recently and states she has been tearful at times. Plan: I discussed with the patient that I had discontinued her Pamelor due to its sedating side effects and would suggest that she not be restarted on this as patient was not able to tell me that it provided any improvement in her pain relief and she did report feeling sedated on it. Patient at this time is not expressing any depressive symptoms or suicidal ideation and there is no evidence on examination of any psychotic process or mood disorder that would require psychotropic medication. Patient and I discussed should she have difficulties in dealing with the loss of her boyfriend or feel depressed in the future that she should seek out treatment and she was aware of community mental health. I will sign off the case at this time.
[2017-01-23 14:49] LABS: ALT 41 U/L (9-52); AST 28 U/L (14-36); Alkaline Phosphatase 180 U/L (38-126); Anion Gap 14 mmol/L; Blood Urea Nitrogen 7 mg/dL (7-17); Calcium 9.4 mg/dL (8.4-10.2); Carbon Dioxide 21 mmol/L (22-30); Chloride 109 mmol/L (98-107); Glucose 109 mg/dL (74-99); Non-African American GFR(MDRD) >60 (>60 ml/min/1.73 sqM); Sodium 144 mmol/L (137-145); Total Bilirubin 0.7 mg/dL (0.2-1.3)
[2017-01-23 14:50] LABS: Potassium 2.9 mmol/L (3.5-5.1)
[2017-01-23 15:00] LABS: Appearance,Urine Clear (Clear); Bilirubin,Urine Negative (Negative); Glucose,Urine (UA) Negative (Negative); Ketones,Urine Negative (Negative); Leukocyte Esterase,Urine Negative (Negative); Nitrite,Urine Negative (Negative); PH, Urine 6.5 (5.0-8.0); Protein,Urine Trace (Negative); Specific Gravity,Urine 1.009 (1.001-1.035); UA Billing (MACRO vs. MICRO) CHEM; Urobilinogen,Urine <2.0 mg/dL (<2.0)
--- NOTE | 2017-01-23 15:10 | P.CONS ---
History of Present Illness - Reason for Consult Consult date: 01/23/17 thrombocytosis Requesting physician: Philip Andino - Chief Complaint Removal from hospice - History of Present Illness Ms. Dobbs is a very pleasant 46-year-old female who we have been asked to see in regards to acute thrombocytosis. Patient's CBC was reviewed over the last month as she was hospitalized in critical condition. Her platelet values are elevated on her last 3 blood draws. Patient denies ever being told before that she has abnormal blood values of any kind, patient denies bleeding or easy bruising, night sweats, lymph node swellings, unusual musculoskeletal pain, he is current on all of her age related cancer screenings. Patient denies any acute physical complaints at this time. Review of Systems All systems: negative Constitutional: Reports as per HPI 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 Organisms: MRSA Year Discovered:: 01/08/17 MDRO Source:: BLOOD Past Surgical History: Unable to Obtain, Appendectomy, Tubal Ligation Additional Past Surgical History / Comment(s): neck fusion Past Anesthesia/Blood Transfusion Reactions: No Reported Reaction, Unable to Obtain Past Psychological History: No Psychological Hx Reported, Unable to Obtain Smoking Status: Unknown if ever smoked Past Alcohol Use History: None Reported, Unable to Obtain Past Drug Use History: None Reported, Unable to Obtain Additional Drug Use History / Comment(s): tox screen positive - Past Family History Father History Unknown: Yes Family Medical History: Unable to Obtain Mother History Unknown: Yes Family Medical History: Unable to Obtain Medications and Allergies Home Medications Medication Instructions Recorded Confirmed Type Baclofen [Lioresal] 20 mg PO TID 01/08/17 01/20/17 History Choline Citrate 650mg 650 mg PO BID 01/08/17 01/20/17 History Cyanocobalamin (Vitamin B-12) 1,000 mcg PO DAILY 01/08/17 01/20/17 History [Vitamin B-12] Folic Acid 0.4 mg PO DAILY 01/08/17 01/20/17 History Gabapentin 600 mg PO Q4H 01/08/17 01/20/17 History HYDROcodone/IBUPROFEN [Xylon 0.5 tab PO BID 01/08/17 01/20/17 History 10-200 mg Tablet] Levothyroxine Sodium [Synthroid] 137 mcg PO DAILY 01/08/17 01/20/17 History Loratadine 10 mg PO DAILY 01/08/17 01/20/17 History Morphine Sulfate [Ms Contin] 15 mg PO HS 01/08/17 01/20/17 History Morphine Sulfate [Ms Contin] 30 mg PO QAM 01/08/17 01/20/17 History Naproxen 500 mg PO Q12H 01/08/17 01/20/17 History Nortriptyline [Pamelor] 100 mg PO HS 01/08/17 01/20/17 History Omeprazole 40 mg PO DAILY 01/08/17 01/20/17 History Oxybutynin Chloride [Ditropan] 5 mg PO TID 01/08/17 01/20/17 History Pyridoxine [Vitamin B-6] 50 mg PO DAILY 01/08/17 01/20/17 History Allergies Allergy/AdvReac Type Severity Reaction Status Date / Time acetaminophen Allergy Unknown Verified 01/16/17 13:38 aspirin Allergy Rash/Hives Verified 01/16/17 13:38 DAIRY Allergy Vomiting Uncoded 01/08/17 17:54 Physical Exam Vitals: Vital Signs Temp Pulse Pulse Resp BP BP Pulse Ox 01/23/17 07:38 78 01/23/17 07:24 76 16 01/23/17 07:00 98.5 F 70 18 146/81 01/22/17 23:00 98.4 F 61 16 151/76 98 01/22/17 21:04 76 01/22/17 20:49 76 Intake and Output 01/23/17 01/23/17 01/23/17 06:59 14:59 22:59 Intake Total 2069 Balance 2069 Intake: Intake, IV Titration 650 Amount Sodium Chloride 0.9% 1, 400 000 ml @ 50 mls/hr IV . Q20H [facility] Rx#:[id number] Vancomycin 1,750 mg In 250 Sodium Chloride 0.9% 250 ml @ 125 mls/hr IVPB BID@ 06,1999 [facility] Rx#: [id number] Oral 1420 Other: Voiding Method Bedside Commode Toilet # Voids 3 4 # Bowel Movements 1 Weight 79.5 kg Patient Weight 01/24/17 06:59 Weight 79.5 kg - Constitutional General appearance: average body habitus, cooperative, no acute distress - EENT Eyes: anicteric sclerae, PERRLA (5-6mm pupil dilation) ENT: normal oropharynx - Neck Neck: no lymphadenopathy - Respiratory Respiratory: bilateral: CTA - Cardiovascular Rhythm: regular Heart sounds: normal: S1, S2 Abnormal Heart Sounds: no systolic murmur, no diastolic murmur, no rub, no S3 Gallop, no S4 Gallop, no click, no other leg Peripheral Edema: bilateral: None - Gastrointestinal General gastrointestinal: no absent bowel sounds, no decreased bowel sounds, no distended, no hepatomegaly, no hyperactive bowel sounds, normal bowel sounds, no organomegaly, no rigid, no scaphoid, soft, no splenomegaly, no tenderness, no umbilical hernia, no ventral hernia - Integumentary Integumentary: normal - Neurologic Neurologic: CNII-XII intact - Musculoskeletal Musculoskeletal: strength equal bilaterally - Psychiatric Psychiatric: A&O x's 3, appropriate affect, intact judgment & insight Results CBC & Chem 7: 01/23/17 11:40 01/23/17 14:10 Labs: Abnormal Lab Results - Last 24 Hours (Table) 01/23/17 01/23/17 01/23/17 Range/Units 11:40 14:10 14:45 RBC 3.69 L (3.80-5.40) m/uL Hct 32.1 L (34.0-46.0) % Plt Count 813 H* (150-450) k/uL Potassium 2.9 L* (3.5-5.1) mmol/L Chloride 109 H (98-107) mmol/L Carbon Dioxide 21 L (22-30) mmol/L Glucose 109 H (74-99) mg/dL Alkaline Phosphatase 180 H (38-126) U/L Urine Protein Trace H (Negative) Microbiology - Last 24 Hours (Table) 01/21/17 12:20 Urine Culture - Final Urine,Catheterized Micki glabrata 01/21/17 13:31 Blood Culture - Preliminary Blood No Growth after 24 hours Assessment and Plan (1) Reactive thrombocytosis Narrative/Plan: Patient's condition is felt more likely to be a reactive thrombocytosis based on the patient's most recent critical medical situation as well as acuteness of the thrombocytosis. Laboratory work up has been ordered for evaluation. No recommendation for antiplatelet therapy at this time, cont DVT prophylaxis. Did recommend patient to follow-up with her primary care doctor and monitor her CBC for the next several months to see if her platelet counts return to normal. If thrombocytosis persists she can always be referred back to Dr. Parrish for further workup. Status: Acute
[2017-01-23] MEDS ORDERED: Potassium Replacement Protocol 1 EACH MISC MISCELLANE PRN (15:21)
[2017-01-23] MEDS: POTASSIUM CHLORIDE ER 20 MEQ TAB.ER PO SCH ×3 (15:58→17:54)
--- NOTE | 2017-01-23 20:20 | PN ---
DATE OF SERVICE: 01/23/17 REASON FOR FOLLOW UP: 1. MRSA bacteremia. 2. Possible aspiration pneumonia. 3. Positive urine culture likely contamination. INTERVAL HISTORY: The patient is afebrile. She is breathing comfortably. The patient denies significant chest pain. Very minimal cough. No abdominal pain and no urinary symptoms. On examination, blood pressure 136/79, pulse 80, temperature 98, she is 98% on room air. General description is a middle age female up in the room in no distress. Respiratory system: Unlabored breathing. Some decreased breath sounds at the bases. No wheeze. Heart: S1, S2 regular rate and rhythm. Abdomen soft, no tenderness. LABS: BUN 7, creatinine 0.95. White count normal at 8.9 in a patient whose urine did show ( ). DIAGNOSTIC IMPRESSION AND PLAN: 1. Patient with MRSA bacteremia in a patient whose follow-up blood culture has been negative. She will need to be on IV Vanco for another 12 days to finish two week of therapy. 2. ( ) possible aspiration pneumonia, currently on Zosyn that will be switch to oral Avelox on discharge. 3. Urine culture with [place] ( ) we did obtain another urinalysis and it is clean, more likely contamination. No need for any fungal therapy at this point. MTDD
[2017-01-24] MEDS: PIPERACILLIN-TAZOBACTAM 3.375 GM in DEXTROSE/WATER 1 50ML.BAG IVPB SCH ×3 (00:26→16:52)
[2017-01-24] MEDS: HEPARIN SODIUM,PORCINE 5,000 UNIT/ML 1 ML VIAL SQ SCH ×3 (00:27→16:54)
[2017-01-24] MEDS: SODIUM CHLORIDE 0.9% 1,000 ML IV SCH (05:29)
[2017-01-24] MEDS: VANCOMYCIN 1,750 MG in SODIUM CHLORIDE 0.9% 250 ML IVPB SCH (05:30)
[2017-01-24] MEDS: LEVOTHYROXINE 137 MCG TAB PO SCH (05:31)
[2017-01-24 07:19] LABS: Calcium 8.6 mg/dL (8.4-10.2); Magnesium 1.6 mg/dL (1.6-2.3); Potassium 3.1 mmol/L (3.5-5.1); Total Bilirubin 0.8 mg/dL (0.2-1.3); Total Protein 5.9 g/dL (6.3-8.2)
[2017-01-24] MEDS: BUDESONIDE 0.5 MG/2 ML NEBU INHALATION SCH ×2 (07:25→19:57)
[2017-01-24] MEDS: IPRATROPIUM-ALBUTEROL 3 ML NEB INHALATION SCH ×3 (07:25→19:57)
[2017-01-24] MEDS: NAPROXEN 250 MG TAB PO SCH ×2 (08:21→20:24)
[2017-01-24] MEDS: OXYBUTYNIN CHLORIDE 5 MG TAB PO SCH ×3 (08:22→20:25)
[2017-01-24] MEDS: MORPHINE SULFATE ER 15 MG TABLET PO SCH (08:22)
[2017-01-24] MEDS: PANTOPRAZOLE 40 MG TABLET PO SCH (08:22)
[2017-01-24] MEDS: CYANOCOBALAMIN 500 MCG TAB PO SCH (08:22)
[2017-01-24] MEDS: BACLOFEN 10 MG TAB PO SCH ×3 (08:22→20:23)
[2017-01-24] MEDS ORDERED: IV VANCOMYCIN PER PHARMACY 1 EACH MISC MISCELLANE PRN (10:19)
[2017-01-24 11:15] LABS: Basophils # (A) 0.1 k/uL (0-0.2); Basophils % (A) 1 %; CH 30.3; CHCM 34.1; Eosinophils # (A) 0.2 k/uL (0-0.7); Eosinophils % (A) 2 %; HDW 3.58; HGB 10.9 gm/dL (11.4-16.0); Hypochromasia Slight; Luc # (Auto) 0.16; Luc % (Auto) 2; Lymphocytes # (A) 1.2 k/uL (1.0-4.8); Lymphocytes % (A) 13 %; MCH 29.5 pg (25.0-35.0); MCV 89.4 fL (80.0-100.0); Mean Platelet Volume 6.4; Monocytes # (A) 0.6 k/uL (0-1.0); Monocytes % (A) 7 %; Neutrophils # (A) 6.9 k/uL (1.3-7.7); Neutrophils % (A) 76 %; Poikilocytosis Slight; RBC 3.69 m/uL (3.80-5.40); WBC 9.1 k/uL (3.8-10.6); WBC (Perox) 9.22
[2017-01-24 12:29] LABS: % Iron Saturation 10.5 % (20-50)
[2017-01-24] MEDS: FOLIC ACID 1 MG TAB PO SCH (13:15)
[2017-01-24] MEDS ORDERED: Potassium Replacement Protocol 1 EACH MISC MISCELLANE PRN (13:21)
--- NOTE | 2017-01-24 13:22 | P.PN ---
Subjective 01/21/17-This is a 46-year-old female patient being seen, examined and evaluated today on the fifth floor. This patient originally presented to the emergency room on 01/08/2017 via EMS for overdose. Apparently the patient was at home and her roommate found her unresponsive around multiple bottles of pills, therefore the remaining forced her to vomit before EMS arrived. When EMS arrived they did note that there was pill fragments in her vomit. EMS did give the patient Narcan with minimal improvement of her symptoms. It is unclear what medications the patient did consume however there is speculation that it was morphine, gabapentin and baclofen. The patient's urine drug screen was positive for opiates, tricyclic antidepressants, cocaine and marijuana. Poison control was also following the patient. The patient was on mechanical ventilation with propofol for sedation she also noted to have a right lower lobe aspiration pneumonia. The patient was on mechanical ventilation for several days and had a neurological evaluation as well. It was felt that the patient suffered an anoxic brain injury and after 2 brain CTs and 3 EEGs. The patient was not showing any neurological improvements or advancement. The patient's power of sports attorney Natalya was updated daily on her condition and Natalya was requesting that the patient be made comfort care with hospice. The patient was trialed on CPAP with his sedation holidays on a daily basis and again before extubation and the patient was unable to tolerate it, her heart rate as well as a respiratory rate increased significantly. Patient was ultimately switched over to comfort care/hospice per power of sports attorney's request. Apparently over the last 2 days the patient was showing some clinical improvement therefore the patient's power of sports attorney Natalya requested we take her off of hospice and restart medical management. Upon examination today the patient is resting up in bed and is somewhat lethargic, she is able to follow simple commands, she is extremely weak and has some shortness of breath with activity. Patient is able to recall some of her long-term memory, however short -term memory seems to be impaired. Patient does not remember coming to the hospital or why she is here. She does recognize her daughter as well as her mother at bedside. Currently she is on a pured diet and is tolerating that well. Patient denies any pain or any further complaints. 01/22/17- Patient being seen examined and evaluated on the fifth floor today. Patient is doing well she is resting up in bed on room air. All labs chest x- ray has been reviewed. Chest x-ray does show focal, consolidation within the right lower lobe and to a lesser degree within the right middle lobe suggestion of her aspiration pneumonia. Scattered atelectasis and trace effusions are also noted. Overall the patient states she is feeling better in regards to her breathing. Denies any cough or congestion at this time does have some shortness of breath with exertion. She may be a candidate for possible inpatient rehabilitation. 01/23/17- patient being examined and evaluated 17 on rounds. Currently the patient's resting up in a chair on room air. overall the patient feels better today , speech therapy is evaluating the patient today and she appears to be reluctant to participate. her family is at bedside have been updated on the patient's plan of care and prognosis. patient will have a PICC line insertion today. discharge planning is in process it is unclear whether the patient will go home with home care or go to a subacute rehab facility. patient denies any shortness of breath coughing or congestion today. The patient is seen again today 01/24/2017 in follow-up on the regular medical floor. She is currently sitting up in bed. She denies any worsening shortness of breath, cough or congestion. He is maintaining good O2 saturations in the 90s on room air. She's been afebrile. Hemodynamically stable. Her urine cultures positive for micki glabrata she is currently on vancomycin and Zosyn. Infectious diseases on the case. She is also noted to have acute thrombocytosis and hematology is on the case as well. Objective - Vital Signs Vital signs: Vital Signs Temp 97.3 F L 01/24/17 07:00 Pulse 58 L 01/24/17 08:00 Resp 18 01/24/17 08:00 BP 144/73 01/24/17 07:00 Pulse Ox 96 01/23/17 21:47 Intake & Output 01/23/17 01/24/17 01/24/17 18:59 06:59 18:59 Intake Total 2070 1500 Output Total 400 400 Balance 1670 1500 -400 Weight 79.5 kg 79.5 kg 79.5 kg Intake: IV 50 Piperacillin-Tazobactam 3 50 .375 gm In Dextrose/Water 1 50ml.bag @ 12.5 mls/hr IVPB Q8HR [facility] Rx#: [id number] Intake, IV Titration 650 250 Amount Sodium Chloride 0.9% 1, 400 000 ml @ 50 mls/hr IV . Q20H [facility] Rx#:[id number] Vancomycin 1,750 mg In 250 250 Sodium Chloride 0.9% 250 ml @ 125 mls/hr IVPB BID@ 0600,2000 [facility] Rx#: [id number] Oral 1420 1200 Output: Urine 400 400 Other: Voiding Method Toilet Toilet Toilet # Voids 4 3 3 # Bowel Movements 1 1 1 - Exam GENERAL EXAM: Alert, active, comfortable in no apparent distress. HEAD: Normocephalic. EYES: Normal reaction of pupils, equal size. NOSE: Clear with pink turbinates. THROAT: No erythema or exudates. NECK: No masses, no JVD. CHEST: No chest wall deformity. LUNGS: Equal air entry with no crackles, wheeze, rhonchi or dullness. Diminished. CVS: S1 and S2 normal with no audible murmurs, regular rhythm. ABDOMEN: No hepatosplenomegaly, normal bowel sounds, no guarding or rigidity. SPINE: No scoliosis or deformity SKIN: No rashes CENTRAL NERVOUS SYSTEM: No focal deficits, tone is normal in all 4 extremities. - Labs CBC & Chem 7: 01/24/17 11:05 01/24/17 06:45 Labs: Abnormal Lab Results - Last 24 Hours (Table) 01/23/17 01/23/17 01/24/17 Range/Units 14:10 14:45 06:45 RBC (3.80-5.40) m/uL Hgb (11.4-16.0) gm/dL Hct (34.0-46.0) % Plt Count (150-450) k/uL Sodium 147 H (137-145) mmol/L Potassium 2.9 L* 3.1 L (3.5-5.1) mmol/L Chloride 109 H 111 H (98-107) mmol/L Carbon Dioxide 21 L (22-30) mmol/L BUN 6 L (7-17) mg/dL Creatinine 1.22 H (0.52-1.04) mg/dL Glucose 109 H (74-99) mg/dL Iron 30 L (37-170) ug/dL % Saturation 10.5 L (20-50) % Alkaline Phosphatase 180 H 136 H (38-126) U/L Total Protein 5.9 L (6.3-8.2) g/dL Albumin 3.0 L (3.5-5.0) g/dL Urine Protein Trace H (Negative) 01/24/17 Range/Units 11:05 RBC 3.69 L (3.80-5.40) m/uL Hgb 10.9 L (11.4-16.0) gm/dL Hct 33.0 L (34.0-46.0) % Plt Count 680 H (150-450) k/uL Sodium (137-145) mmol/L Potassium (3.5-5.1) mmol/L Chloride (98-107) mmol/L Carbon Dioxide (22-30) mmol/L BUN (7-17) mg/dL Creatinine (0.52-1.04) mg/dL Glucose (74-99) mg/dL Iron (37-170) ug/dL % Saturation (20-50) % Alkaline Phosphatase (38-126) U/L Total Protein (6.3-8.2) g/dL Albumin (3.5-5.0) g/dL Urine Protein (Negative) Microbiology - Last 24 Hours (Table) 01/21/17 13:31 Blood Culture - Preliminary Blood No Growth after 48 hours Assessment and Plan Plan: Impression: #1 Acute hypoxic respiratory failure secondary to suspected aspiration pneumonia secondary to drug overdose. #2 Aspiration pneumonia secondary to MRSA. #3 Bacteremia secondary to MRSA. #4 Urinary tract infection secondary to Micki glabrata area #5 Severe septic shock, recovered. #6 Encephalopathy, recovered. Plan: The patient was seen and evaluated by Dr. Alvarado as he is covering for Dr. Garcia. She is stable from the pulmonary and critical care standpoint. We'll continue with her current medications. She is again encouraged regarding the increased use of the incentive spirometer and cough and deep breathing exercises. Antibiotics per ID. We will follow with the patient on as-needed basis.
[2017-01-24] MEDS: POTASSIUM CHLORIDE 10 MEQ, LIDOCAINE 2% INJ 10 MG in SODIUM CHLORIDE 0.9% 100 ML IV SCH ×2 (14:01→15:31)
[2017-01-24] MEDS ORDERED: VANCOMYCIN TROUGH DUE 1 EACH MISC MISCELLANE ONE (19:00)
[2017-01-25] MEDS: HEPARIN SODIUM,PORCINE 5,000 UNIT/ML 1 ML VIAL SQ SCH ×3 (00:04→16:15)
[2017-01-25] MEDS: PIPERACILLIN-TAZOBACTAM 3.375 GM in DEXTROSE/WATER 1 50ML.BAG IVPB SCH ×3 (00:04→16:16)
[2017-01-25] MEDS: LEVOTHYROXINE 137 MCG TAB PO SCH (05:57)
[2017-01-25 06:29] LABS: Basophils # (A) 0.1 k/uL (0-0.2); Basophils % (A) 1 %; CHCM 33.5; Eosinophils # (A) 0.3 k/uL (0-0.7); Eosinophils % (A) 3 %; HCT 30.7 % (34.0-46.0); HDW 3.57; HGB 10.1 gm/dL (11.4-16.0); Hypochromasia Slight; Luc # (Auto) 0.16; Luc % (Auto) 2; Lymphocytes # (A) 1.2 k/uL (1.0-4.8); Lymphocytes % (A) 14 %; MCH 29.7 pg (25.0-35.0); MCV 89.9 fL (80.0-100.0); Monocytes # (A) 0.4 k/uL (0-1.0); Monocytes % (A) 5 %; Neutrophils # (A) 6.6 k/uL (1.3-7.7); Neutrophils % (A) 75 %; Poikilocytosis Slight; RBC 3.41 m/uL (3.80-5.40); WBC 8.7 k/uL (3.8-10.6); WBC (Perox) 9.14
[2017-01-25] MEDS: SODIUM CHLORIDE 0.9% 1,000 ML IV SCH ×2 (06:39→23:05)
[2017-01-25 06:43] LABS: Calcium 8.9 mg/dL (8.4-10.2); Potassium 3.3 mmol/L (3.5-5.1); Total Bilirubin 0.8 mg/dL (0.2-1.3); Total Protein 5.7 g/dL (6.3-8.2)
[2017-01-25] MEDS: ONDANSETRON 4 MG/2 ML VIAL IVP PRN (07:03)
[2017-01-25] MEDS ORDERED: Potassium Replacement Protocol 1 EACH MISC MISCELLANE PRN (07:07)
[2017-01-25] MEDS: IPRATROPIUM-ALBUTEROL 3 ML NEB INHALATION SCH ×3 (07:59→20:37)
[2017-01-25] MEDS: BUDESONIDE 0.5 MG/2 ML NEBU INHALATION SCH ×2 (07:59→20:37)
[2017-01-25] MEDS: POTASSIUM CHLORIDE 10 MEQ, LIDOCAINE 2% INJ 10 MG in SODIUM CHLORIDE 0.9% 100 ML IV SCH ×2 (08:08→09:09)
[2017-01-25] MEDS: PANTOPRAZOLE 40 MG TABLET PO SCH (08:11)
[2017-01-25] MEDS: NAPROXEN 250 MG TAB PO SCH ×2 (09:17→20:16)
[2017-01-25] MEDS: OXYBUTYNIN CHLORIDE 5 MG TAB PO SCH ×3 (09:17→20:22)
[2017-01-25] MEDS: MORPHINE SULFATE ER 15 MG TABLET PO SCH (09:17)
[2017-01-25] MEDS: CYANOCOBALAMIN 500 MCG TAB PO SCH (09:17)
[2017-01-25] MEDS: BACLOFEN 10 MG TAB PO SCH ×3 (09:17→23:02)
[2017-01-25] MEDS: FOLIC ACID 1 MG TAB PO SCH (12:08)
--- NOTE | 2017-01-25 14:32 | PN ---
DATE OF SERVICE: 01/24/17 REASON FOR FOLLOW UP: 1. Possible aspiration pneumonia. 2. MRSA bacteremia. 3. Possible urine culture, likely contamination. INTERVAL HISTORY: The patient is afebrile. He is feeling better. Breathing comfortably. Very minimal cough. No chest pain. No abdominal pain and no urinary symptoms. On examination, blood pressure 123/79, pulse 74, temperature 97.4. General description is a middle aged female lying in the bed in no distress. Respiratory system: Unlabored breathing. Clear to auscultation anteriorly. Heart: S1, S2 regular rate and rhythm. Abdomen soft, no tenderness. LABS: Hemoglobin 10.9, white count 9.1 with a BUN of 6. Creatinine 1.22. DIAGNOSTIC IMPRESSION AND PLAN: 1. Patient with MRSA bacteremia in a patient admitted to the hospital with ( ) and possible aspiration pneumonia. The patient seems to have overall clinical improvement. Repeat blood culture has been negative. Currently on IV Vancomycin which should continue for another ten days to finish course of therapy. 2. Patient with aspiration pneumonia, currently on Zosyn that will be switched to Avelox on discharge. 3. Positive urine culture with Micki ( ) repeat UA is negative. Likely contamination, no need for therapy for the same. MTDD
--- NOTE | 2017-01-25 19:39 | PN ---
SUBJECTIVE: White female sitting up in her bed, satting 90s on room air. Urine culture is positive for Micki glabrata. She is on Vancomycin, Zosyn for pneumonia. She has acute thrombocytosis for which hematology is consulted. Temp is 97, pulse 85, respiratory rate 18, blood pressure 144/73. O2 96%. Ambulation up to the bathroom. Cardiovascular : S1, S2. Lungs clear. GI: Soft. Speech is slurred but normal. Alert and oriented times three. BUN 6, creatinine 1.22. Sodium 147. Potassium 3.1. ASSESSMENT: 1. Acute hypoxemic respiratory failure secondary to aspiration pneumonia, secondary to drug overdose/aspiration pneumonia secondary to MRSA. 2. Bacteremia, secondary to MRSA urinary tract infection with micki glabrata. 3. Severe septic shock, recovered. 4. Encephalopathy, recovered. Continue with broad spectrum antibiotics until cleared by infectious disease. PICC line is placed. Continue with current potassium replacement. MTDD
[2017-01-25] MEDS: AMOXIC-POT CLAV 500-125 MG 1 EACH TAB PO SCH (20:21)
[2017-01-26] MEDS: HEPARIN SODIUM,PORCINE 5,000 UNIT/ML 1 ML VIAL SQ SCH ×3 (00:33→17:17)
[2017-01-26] MEDS: LEVOTHYROXINE 137 MCG TAB PO SCH (06:04)
[2017-01-26 06:27] LABS: Calcium 8.9 mg/dL (8.4-10.2)
[2017-01-26 06:35] LABS: Potassium 4.4 mmol/L (3.5-5.1)
[2017-01-26] MEDS: BUDESONIDE 0.5 MG/2 ML NEBU INHALATION SCH ×2 (07:33→19:12)
[2017-01-26] MEDS: IPRATROPIUM-ALBUTEROL 3 ML NEB INHALATION SCH ×3 (07:33→19:12)
[2017-01-26] MEDS: AMOXIC-POT CLAV 500-125 MG 1 EACH TAB PO SCH ×2 (08:54→21:43)
[2017-01-26] MEDS: NAPROXEN 250 MG TAB PO SCH ×2 (08:55→21:42)
[2017-01-26] MEDS: OXYBUTYNIN CHLORIDE 5 MG TAB PO SCH ×3 (08:55→21:43)
[2017-01-26] MEDS: BACLOFEN 10 MG TAB PO SCH ×3 (08:57→21:43)
[2017-01-26] MEDS: FOLIC ACID 1 MG TAB PO SCH (08:57)
[2017-01-26] MEDS: CYANOCOBALAMIN 500 MCG TAB PO SCH (08:57)
[2017-01-26] MEDS: PANTOPRAZOLE 40 MG TABLET PO SCH (08:58)
[2017-01-26] MEDS: MORPHINE SULFATE ER 15 MG TABLET PO SCH (09:01)
--- NOTE | 2017-01-26 10:51 | PN ---
SUBJECTIVE: This is a 46-year-old white female admitted with polysubstance drug abuse, a near brain experience, now is waking up, talking more. Is able to swallow. Some broad-spectrum antibiotics for MRSA pneumonia and sepsis. Await discharge plans of set up outpatient IV antibiotics versus mcc placement. Multiple consults are reviewed. Lungs show scattered wheeze. CARDIOVASCULAR: S1 and S2. HEMATOLOGY: Negative Homans. PSYCH: Fair mood and affect. ASSESSMENT: 1. Polysubstance abuse. 2. Methicillin-resistant Staphylococcus aureus pneumonia. Please see current treatments employed by pulmonary physician and ( ) evaluation in patient 's past. 3. Mental status changes improving daily. Will stop IV antibiotics, possible discharge home tomorrow. MTDD
--- NOTE | 2017-01-26 11:59 | P.PN ---
Subjective 46-year-old female being seen on rounds this morning is currently up ambulating with the use of a cane in the room. Patient is stating anxious to be discharged. Patient has a legal guardian until the end of January reportedly is her daughter her daughter is requesting a re-eval by the mental health service is concerned that the patient may need inpatient psych admission or at least to be set up for outpatient counseling given the event that occurred daughter is stating that she would feel better if her mother was reevaluated there is concerned there was suicidal ideation with the polysubstance drug overdose whether it was intentional or unintentional the daughter states she's not certain also noted that the patient's creatinine is up this morning to 3.1. Was 2.4. The discharge will be held psych referral requested. Patient continues to show cognitive improvement the daughter is concerned about the discharge plan is to wear the patient will be discharged to reportedly has in the past limited contact with family members Objective - Vital Signs Vital signs: Vital Signs Temp 97.7 F 01/26/17 07:00 Pulse 83 01/26/17 07:00 Resp 16 01/26/17 07:00 BP 144/94 01/26/17 07:00 Pulse Ox 98 01/26/17 07:00 Intake & Output 01/25/17 01/26/17 01/26/17 18:59 06:59 18:59 Intake Total 1240 Balance 1240 Weight 79.5 kg Intake: IV 50 Piperacillin-Tazobactam 3 50 .375 gm In Dextrose/Water 1 50ml.bag @ 12.5 mls/hr IVPB Q8HR [facility] Rx#: [id number] Intake, IV Titration 550 Amount Potassium Chloride 10 meq 100 Lidocaine 2% Inj 10 mg In Sodium Chloride 0.9% 100 ml @ 100 mls/hr IV Q1HR [facility] Rx#:[id number] Potassium Chloride 10 meq 100 Lidocaine 2% Inj 10 mg In Sodium Chloride 0.9% 100 ml @ 100 mls/hr IV Q1HR [facility] Rx#:[id number] Sodium Chloride 0.9% 1, 350 000 ml @ 50 mls/hr IV . Q20H [facility] Rx#:[id number] Oral 640 Other: Voiding Method Toilet Toilet Toilet # Voids 1 - Exam Physical exam 46-year-old female up in room Talkative cooperative oriented to person and place Lungs diminished at the bases otherwise adequate air movement on room air no cough noted no shortness breath Heart S1-S2 audible denying heart palpitation denying chest pain Abdomen soft not distended nontender no frequent stooling tolerating diet no reports of nausea vomiting Extremities no edema noted. - Labs CBC & Chem 7: 01/25/17 06:15 01/26/17 06:00 Labs: Abnormal Lab Results - Last 24 Hours (Table) 01/26/17 Range/Units 06:00 Chloride 113 H (98-107) mmol/L Carbon Dioxide 21 L (22-30) mmol/L Creatinine 3.10 H (0.52-1.04) mg/dL Microbiology - Last 24 Hours (Table) 01/21/17 13:31 Blood Culture - Preliminary Blood No Growth after 96 hours Assessment and Plan Plan: Impression Recent admission on 01/08/2017 for acute hypoxic respiratory failure suspect due to a polysubstance drug overdose resolved Recent Blood cultures positive for MRSA Chest x-ray right upper lobe pneumonia Recent admission 01/08/2017 acute metabolic encephalopathy suspect due to medication Recent admission for treatment of on 01/08/2017 Drug overdose unclear if intentional or unintentional recent admission and treatment for on 01/08/2017 severe recent admission 01/08/2017 for treatment of sepsis with septic shock suspect due to MRSA pneumonia and bacteremia Recent admission treatment for on 01/08/2017 aspiration pneumonia right lower lobe likely due to MRSA with acute hypoxic respiratory failure Urine culture present on admission positive for UTI with Micki New onset Acute renal failure suspect due to vancomycin vancomycin has been stopped Plan Aspiration precautions DVT and GI prophylaxis Resume home meds as appropriate Further recommendations pending Continue with PT OT IV fluid at 75 mL an hour Hold discharge Reconsult psych service await recommendations 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 Vero Hernandez nurse practitioner acting as scribe for signing physician.
[2017-01-26] MEDS: SODIUM CHLORIDE 0.9% 1,000 ML IV SCH ×5 (12:21→21:45)
--- NOTE | 2017-01-26 17:25 | PN ---
DATE OF SERVICE: 01/25/2017 REASON FOR FOLLOW UP: 1. MRSA bacteremia. 2. Aspiration pneumonia. 3. Positive urine culture, likely contamination. INTERVAL HISTORY: The patient is afebrile. She is breathing comfortably. The patient denies significant chest pain, shortness of breath. No abdominal pain, no nausea, no vomiting, no diarrhea. On examination, blood pressure 137/80 with a pulse ox of 94, temperature 98.8. She is 100% on room air. GENERAL DESCRIPTION: Middle-aged female up in her room in no distress. RESPIRATORY: Unlabored breathing. Some decreased but no ( ). HEART: S1/S2 regular. ABDOMEN: Soft. No tenderness. LABS: Hemoglobin 10.1, white count 8.7 with a BUN of 10. Creatinine is up to 2.40. The vanco level has been high. DIAGNOSTIC IMPRESSION AND PLAN: 1. Patient with a methicillin-resistant Staphylococcus aureus bacteremia. The repeat blood culture has been negative. Patient currently being treated with vancomycin. ( ) saw the patient, had significant jump in her creatinine. Vanco should be put on hold. Waiting for the kidney functions to normalize. 2. Patient with aspiration pneumonia. So far negative for ( ) pathogen. Bactrim will be switched Augmentin. 3. Positive urine culture with [place]. Follow up urine culture is negative. No need for any antifungal. MTDD
[2017-01-26] MEDS: SODIUM FERRIC GLUCONAT-SUCROSE 125 MG in SODIUM CHLORIDE 0.9% 100 ML IVPB SCH (17:32)
[2017-01-27] MEDS: HEPARIN SODIUM,PORCINE 5,000 UNIT/ML 1 ML VIAL SQ SCH ×3 (00:39→17:26)
[2017-01-27] MEDS ORDERED: LORazepam 2 MG/ML SYRINGE IV PRN (02:13)
[2017-01-27] MEDS ORDERED: LORazepam 2 MG/ML SYRINGE ONE (02:23)
[2017-01-27] MEDS: ONDANSETRON 4 MG/2 ML VIAL IVP PRN (05:44)
[2017-01-27 06:46] LABS: Glucose,Whole Blood 80 mg/dL (75-99)
[2017-01-27] MEDS: LEVOTHYROXINE 137 MCG TAB PO SCH (07:31)
[2017-01-27 07:37] LABS: Basophils # (A) 0.1 k/uL (0-0.2); Basophils % (A) 1 %; CH 30.3; CHCM 32.9; Eosinophils # (A) 0.4 k/uL (0-0.7); Eosinophils % (A) 3 %; HCT 34.1 % (34.0-46.0); HGB 11.1 gm/dL (11.4-16.0); Hypochromasia Slight; Luc # (Auto) 0.17; Luc % (Auto) 1; Lymphocytes # (A) 1.4 k/uL (1.0-4.8); Lymphocytes % (A) 11 %; MCHC 32.5 g/dL (31.0-37.0); MCV 92.4 fL (80.0-100.0); Mean Platelet Volume 7.1; Monocytes # (A) 0.7 k/uL (0-1.0); Monocytes % (A) 6 %; Neutrophils # (A) 10.6 k/uL (1.3-7.7); Neutrophils % (A) 79 %; RDW 15.4 % (11.5-15.5); WBC 13.4 k/uL (3.8-10.6); WBC (Perox) 13.62
--- NOTE | 2017-01-27 07:49 | P.PN ---
Subjective 46-year-old Female being seen this morning at the request of the nursing staff this morning the patient is noted to have had an episode around 2:00 in the morning of increased confusion. Nursing reports patient was stating that she felt anxious and needed something to calm her down. They did notify the attending who did order Ativan 1.5 IV 1 to be given now and evaluate nursing reports after giving the Ativan patient did fall asleep but did wake up at 6 AM increased confusion. Her whole-body appeared to be twitching. An A team was called. Sats on room air were 98%. The blood pressure was 150/78 and heart rate in the 100s patient's temp is 97.5 labs were pending. They did note that the patient did void a small amount did straight cath received 1200. Patient this morning at 7:30 remains confused restless moving around in the bed nursing attempting to reorient patient to surroundings patient is oriented to self only. Nursing does report that the last 2 days patient has refused to take her MS 15mg contin Patient reportedly was expressing a desire to stop taking her MS Contin. Did speak with the psychiatrist per phone conversation regarding the current event. Psychiatric service recommends stopping IV Ativan and continue to reorient the patient would continue following Objective - Vital Signs Vital signs: Vital Signs Temp 97.5 F L 01/26/17 21:10 Pulse 100 01/27/17 00:00 Resp 16 01/27/17 00:00 BP 150/78 01/26/17 21:10 Pulse Ox 92 L 01/26/17 21:10 Intake & Output 01/26/17 01/27/17 01/27/17 18:59 06:59 18:59 Intake Total 300 1288 Output Total 300 Balance 300 988 Intake: Intake, IV Titration 300 1288 Amount Sodium Chloride 0.9% 1, 300 1288 000 ml @ 75 mls/hr IV . [id number] [facility] Rx#:[id number] Output: Urine 300 Other: Voiding Method Toilet Toilet # Voids 1 2 - Exam Physical exam 46-year-old female being seen on rounds this morning sitter at the bedside restless keep saying she needs to go the bathroom bedpan offered. Oriented to self vitals stable lungs adequate air movement bilaterally and on room air sats are 95% Heart S1-S2 audible regular tachycardic heart rate in the 90s abdomen soft nondistended nontender no nausea no vomiting Extremities moving all extremities at random - Labs CBC & Chem 7: 01/27/17 07:15 01/27/17 07:15 Labs: Microbiology - Last 24 Hours (Table) 01/21/17 13:31 Blood Culture - Preliminary Blood No Growth after 120 hours Assessment and Plan Plan: Impression Recent admission on 01/08/2017 for acute hypoxic respiratory failure suspect due to a polysubstance drug overdose resolved Recent Blood cultures positive for MRSA Chest x-ray right upper lobe pneumonia Recent admission 01/08/2017 acute metabolic encephalopathy suspect due to medication Recent admission for treatment of on 01/08/2017 Drug overdose unclear if intentional or unintentional recent admission and treatment for on 01/08/2017 severe recent admission 01/08/2017 for treatment of sepsis with septic shock suspect due to MRSA pneumonia and bacteremia Recent admission treatment for on 01/08/2017 aspiration pneumonia right lower lobe likely due to MRSA with acute hypoxic respiratory failure Urine culture present on admission positive for UTI with Micki New onset Acute renal failure suspect due to vancomycin vancomycin has been stopped New-onset acute encephalopathy unclear etiology MS morphine withdraw not excluded A recent admission 01/08/2017 acute hypoxic respiratory failure suspect due to polysubstance drug overdose an anoxic brain injury could not be ruled out Plan Aspiration precautions DVT and GI prophylaxis Resume home meds as appropriate Further recommendations pending Continue with PT OT IV fluid at 75 mL an hour Hold discharge Reconsult psych service await recommendations feed in worker pursuing the home situation The above impression and plan of care have been discussed and directed by signing physician. Vero Hernandez nurse practitioner acting as scribe for signing physician.
[2017-01-27 07:50] LABS: Calcium 8.5 mg/dL (8.4-10.2); Potassium 4.1 mmol/L (3.5-5.1); Total Bilirubin 0.8 mg/dL (0.2-1.3); Total Protein 5.7 g/dL (6.3-8.2)
[2017-01-27 08:14] LABS: Magnesium 1.5 mg/dL (1.6-2.3)
[2017-01-27] MEDS: AMOXIC-POT CLAV 500-125 MG 1 EACH TAB PO SCH ×2 (08:14→20:24)
[2017-01-27] MEDS: MORPHINE SULFATE ER 15 MG TABLET PO SCH (08:17)
[2017-01-27] MEDS: CYANOCOBALAMIN 500 MCG TAB PO SCH (08:19)
[2017-01-27] MEDS: NAPROXEN 250 MG TAB PO SCH (08:19)
[2017-01-27] MEDS: OXYBUTYNIN CHLORIDE 5 MG TAB PO SCH ×3 (08:19→20:24)
[2017-01-27] MEDS: BACLOFEN 10 MG TAB PO SCH ×3 (08:19→20:24)
[2017-01-27] MEDS: PANTOPRAZOLE 40 MG TABLET PO SCH (08:19)
[2017-01-27] MEDS: IPRATROPIUM-ALBUTEROL 3 ML NEB INHALATION SCH ×3 (09:13→19:43)
[2017-01-27] MEDS: BUDESONIDE 0.5 MG/2 ML NEBU INHALATION SCH ×2 (09:13→19:43)
[2017-01-27] MEDS: SODIUM CHLORIDE 0.9% 1,000 ML IV SCH ×5 (09:20→13:10)
--- NOTE | 2017-01-27 10:10 | PN ---
DATE OF SERVICE: 01/26/17 REASON FOR FOLLOW UP: 1. MRSA bacteremia. 2. Aspiration pneumonia. 3. Renal insufficiency likely Vancomycin induced. INTERVAL HISTORY: The patient is afebrile. She has been breathing more comfortably. Denies significant chest pain or shortness of breath. No cough. On examination, blood pressure 143/91, pulse 76, temperature 98.1. She is 97 % on room air. General description is an elderly female up in the bed in no distress. Respiratory system: Unlabored breathing. Clear to auscultation. Heart: S1 , S2 regular rate and rhythm. Abdomen soft, no tenderness. LABS: Creatinine 3.10. Vanco level is 35. DIAGNOSTIC IMPRESSION AND PLAN: 1. The patient with MRSA bacteremia with ( ) culture has been negative. Currently has been Vancomycin therapy. Has been on Vancomycin therapy. However , the patient did develop renal insufficiency secondary to Vanco. Vanco currently put on hold. Recommend IV fluid and ( ) kidney function beforehand and ( ) will be plan to finish therapy with ( ). 2. The patient ( ) currently on oral Augmentin. MTDD
[2017-01-27 10:24] LABS: Appearance,Urine Clear (Clear); Bilirubin,Urine Negative (Negative); Glucose,Urine (UA) Negative (Negative); Ketones,Urine Negative (Negative); Leukocyte Esterase,Urine Negative (Negative); Nitrite,Urine Negative (Negative); Protein,Urine Negative (Negative); Specific Gravity,Urine 1.002 (1.001-1.035); UA Billing (MACRO vs. MICRO) CHEM; Urobilinogen,Urine <2.0 mg/dL (<2.0)
--- NOTE | 2017-01-27 10:26 | P.NPCON ---
History of Present Illness - Reason for Consult acute renal failure - History of Present Illness Agent is a 46-year-old female who was initially admitted to the hospital with the drug overdose she required intubation she was extubated. Patient's family had requested hospice care at the time of discharge. Patient was readmitted from hospice care for medical management as family had changed their mind. She has been confused this entire admission Patient had MRSA bacteremia and was on vancomycin. Vancomycin level was noted to be 46.74 trough and random at 42.1. Serum creatinine was at 0.95 mg/dL on 01/23/2017. It increased to 1.2185 and then further to 3.41 mg/dL today. Patient has been avoiding. She currently has a sitter at bedside and is confused. Review of Systems No Fever chills nausea vomiting or diarrhea, no chest pain shortness of breath. Confusion remains 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 Organisms: MRSA Date of last positivie culture/infection: 01/08/17 MDRO Source:: BLOOD Past Surgical History: Unable to Obtain, Appendectomy, Tubal Ligation Additional Past Surgical History / Comment(s): neck fusion Past Anesthesia/Blood Transfusion Reactions: No Reported Reaction, Unable to Obtain Past Psychological History: No Psychological Hx Reported, Unable to Obtain Smoking Status: Unknown if ever smoked Past Alcohol Use History: None Reported, Unable to Obtain Past Drug Use History: None Reported, Unable to Obtain Additional Drug Use History / Comment(s): tox screen positive - Past Family History Father History Unknown: Yes Family Medical History: Unable to Obtain Mother History Unknown: Yes Family Medical History: Unable to Obtain Medications and Allergies Home Medications Medication Instructions Recorded Confirmed Type Baclofen [Lioresal] 20 mg PO TID 01/08/17 01/20/17 History Choline Citrate 650mg 650 mg PO BID 01/08/17 01/20/17 History Cyanocobalamin (Vitamin B-12) 1,000 mcg PO DAILY 01/08/17 01/20/17 History [Vitamin B-12] Folic Acid 0.4 mg PO DAILY 01/08/17 01/20/17 History Gabapentin 600 mg PO Q4H 01/08/17 01/20/17 History HYDROcodone/IBUPROFEN [Xylon 0.5 tab PO BID 01/08/17 01/20/17 History 10-200 mg Tablet] Levothyroxine Sodium [Synthroid] 137 mcg PO DAILY 01/08/17 01/20/17 History Loratadine 10 mg PO DAILY 01/08/17 01/20/17 History Morphine Sulfate [Ms Contin] 15 mg PO HS 01/08/17 01/20/17 History Morphine Sulfate [Ms Contin] 30 mg PO QAM 01/08/17 01/20/17 History Naproxen 500 mg PO Q12H 01/08/17 01/20/17 History Nortriptyline [Pamelor] 100 mg PO HS 01/08/17 01/20/17 History Omeprazole 40 mg PO DAILY 01/08/17 01/20/17 History Oxybutynin Chloride [Ditropan] 5 mg PO TID 01/08/17 01/20/17 History Pyridoxine [Vitamin B-6] 50 mg PO DAILY 01/08/17 01/20/17 History Allergies Allergy/AdvReac Type Severity Reaction Status Date / Time acetaminophen Allergy Unknown Verified 01/16/17 13:38 aspirin Allergy Rash/Hives Verified 01/16/17 13:38 DAIRY Allergy Vomiting Uncoded 01/08/17 17:54 Physical Exam Vitals: Vital Signs Temp Pulse Resp BP Pulse Ox 01/27/17 07:00 77 18 155/91 01/27/17 00:00 100 16 01/26/17 21:10 97.5 F L 100 16 150/78 92 L 01/26/17 15:00 97.1 F L 76 16 143/91 97 Intake and Output 01/26/17 01/27/17 01/27/17 22:59 06:59 14:59 Intake Total 1288 Output Total 100 200 Balance -100 1088 Intake: Intake, IV Titration 1288 Amount Sodium Chloride 0.9% 1, 1288 000 ml @ 75 mls/hr IV . [id number] [facility] Rx#:[id number] Output: Urine 100 200 Other: Voiding Method Toilet Toilet # Voids 1 2 Agent is the confused she dozes off in between conversation. Blood pressure is 155/91 heart rate 77/m she is afebrile Examination of the heart S1 and S2 Examination lungs bilateral breath sounds are heard Abdomen is soft nontender Examination lower extremity shows no evidence of edema [employer] exam shows patient has been moving all 4 extremities. She is confused Results - Lab Results Most recent lab results Calcium 8.5 mg/dL (8.4-10.2) 01/27/17 07:15 Phosphorus 5.0 mg/dL (2.5-4.5) H 01/27/17 07:15 Magnesium 1.5 mg/dL (1.6-2.3) L 01/27/17 07:15 01/27/17 07:15 01/27/17 07:15 Assessment and Plan Plan: Assessment 1. Acute kidney injury secondary to vancomycin toxicity currently nonoliguric. Patient was on NSAIDs also. I will discontinue the Naprosyn for now. The vancomycin has also been discontinued 2. MRSA bacteremia from last admission on 01/08/2017 status post vancomycin. 3. H/o drug overdose and vent dependent respiratory failure with polysubstance abuse. 4. Right upper lobe pneumonia on chest x-ray being followed by ID Plan DC Naprosyn, continue off of vancomycin. Repeat labs in a.m. Encourage increase oral intake. Issac thank you for the consultation we'll continue to follow the patient with you during her hospitalization
[2017-01-27] MEDS: SODIUM FERRIC GLUCONAT-SUCROSE 125 MG in SODIUM CHLORIDE 0.9% 100 ML IVPB SCH (10:29)
[2017-01-27] MEDS: FOLIC ACID 1 MG TAB PO SCH (13:12)
--- NOTE | 2017-01-27 15:07 | P.PN ---
Progress Note - Text Interval History: Patient is a 46-year-old female who was recently seen in consultation and I last saw her on January 23. I spoke with Vero Hernandez this morning she contacted me due to the patient becoming agitated and anxious last evening and receiving Ativan 1.5 mg IV, patient became more agitated and confused the A team was contacted and she was given Narcan. Patient had not been taking her MS Contin since Thursday evening. Patient was seen this afternoon about 12 hours after receiving the Ativan and was sitting in her bed wearing a shirt and adult diaper. Patient reported that she was still feeling a little loopy and stated that she was more confused earlier today. Patient reports that she was feeling hot last evening and was not able to sleep due to this reason, she reports feeling nauseated and unable to eat and did not eat much of her breakfast or lunch which was confirmed by her sitter. Patient voiced no other concerns at this time. Mental Status: Appearance/Attitude: Patient was sitting in her hospital bed wearing a T-shirt and an adult diaper, she made good eye contact and cooperative. Behavior: Patient was restless and constantly moving while I spoke with her but was not agitated and no evidence of psychomotor retardation. Speech/Language: Patient's speech was spontaneous, she was coherent and spoke in a normal volume and tone. Thought Process: Patient was slightly tangential and needed some redirection while I spoke with her and she reported having some difficulty organizing her thoughts. Thought Content: Patient denied any auditory or visual hallucinations no delusions or paranoia were elicited. Patient reported that her thinking was not completely clear, she complained of not being able to eat due to feeling nauseated. Suicidal/Homicidal Ideation: Patient did not report any suicidal or homicidal ideation currently. Sensorium/Cognition: Patient was alert and oriented to person, place and date and her memory was grossly intact. Mood/Affect: Patient's mood was pleasant, she was not irritable and her affect was appropriate. Insight/Judgement: Patient's insight and judgment are fair. Assessment: I spoke with nursing staff who reported that the patient was more easily redirected, was not as confused as she was earlier and patient was not agitated. Patient apparently was agitated per the nurse and slightly confused last evening prior to receiving Ativan. Patient received Ativan IV last evening , as well her creatinine level has been trending upward. Patient was pleasant on interview but reported difficulty with her thinking which she described as cloudy and she did need some redirection during the interview. Patient's sitter reported that at times the patient would just fall asleep even in the middle of a conversation and then would awaken abruptly, she confirmed that the patient has not been eating due to feeling nauseated. Patient had refused her MS Contin on Thursday and Thursday night, she had been tapered to 15mg qhs, patient had been taking higher doses as an outpatient. Plan: At this time the patient's delirium appears to be resolving as patient is less confused and more alert with no evidence of her awareness alternating and she reports no visual hallucinations. I suspect if her delirium continues to resolve that it was related to the Ativan last evening. It is difficult to know how much her not taking any MS Contin on Thursday and Thursday night may have caused her to feel restless and agitated last evening and whether she is nauseated due to withdrawal from opiods. I would not restart opiods but treat her symptomatically for any withdrawal. As the patient is improving I would not recommend using any antipsychotics at this time and just observe the patient and continue to reorient and redirect her as needed. I would also not use any further Ativan for any agitation as this may increase her level of confusion. I will follow with the patient tomorrow. Please don't hesitate to contact me with any questions or concerns. As I had stated in my earlier consultation the patient could give me no history of any prior psychiatric treatment and was denying any symptoms of depression and stated that she had not been feeling suicidal and could not tell me what occurred when she took the overdose of medications. I had suggested at that time to the patient that should she have any difficulties coping with the of her boyfriend that she could seek counseling and she was accepting of this recommendation. I at that time did not see any need for any psychotropic medication.
--- NOTE | 2017-01-27 20:03 | P.PN ---
Subjective Principal diagnosis: Altered mental status The patient is a 46-year-old female who is being seen again by the neurology service for a transient episode of altered mental status. As you recall, the patient was seen earlier this month by the neurology service mainly due to significant improvements in her mental status. The patient had medication overdose in a suicide attempt and had been unresponsive for several days. When she was placed on hospice, she started to improve and head very much returned to baseline. At that time, no further neurological workup was recommended. Early this morning, the patient became quite combative and confused. According to the nursing staff, she was given a dose of Ativan because she was complaining of anxiety. Soon after the Ativan, her mental status significantly changed. I also reviewed her laboratory workup which showed significant renal insufficiency with a BUNs of 18 and creatinine of 3.41. Her renal function was normal on . Her CBC showed mild leukocytosis at 13.4 and mild anemia with hemoglobin of 11.1. As the day progressed, her mental status has slowly improved. At the time of my evaluation , she appears to be back to her baseline as she is oriented 3. She denies any lateralizing numbness or weakness. Objective - Vital Signs Vital signs: Vital Signs Temp 97.4 F L 01/27/17 15:00 Pulse 87 01/27/17 15:00 Resp 16 01/27/17 15:00 BP 135/90 01/27/17 15:00 Pulse Ox 99 01/27/17 15:00 Intake & Output 01/27/17 01/27/17 01/28/17 06:59 18:59 06:59 Intake Total 1288 800 Output Total 300 Balance 988 800 Intake: Intake, IV Titration 1288 800 Amount Sodium Chloride 0.9% 1, 1288 700 000 ml @ 100 mls/hr IV . Q10H [facility] Rx#:[id number] Sodium Ferric Gluconat- 100 Sucrose 125 mg In Sodium Chloride 0.9% 100 ml @ 100 mls/hr IVPB DAILY [facility] Rx#:[id number] Output: Urine 300 Other: Voiding Method Toilet Toilet # Voids 2 2 - Constitutional General appearance: Present: average body habitus, cooperative - EENT Eyes: Present: EOMI ENT: Present: hearing grossly normal - Neck Neck: Present: normal ROM - Cardiovascular Rhythm: regular - Gastrointestinal General gastrointestinal: Present: soft - Neurologic Neurologic Comment(s): The patient is alert aware and oriented 3. Speech and language are normal. Strength is full in all 4 extremities. Sensory exam was normal to light touch in all 4 extremities. No tremors or seizure-like activity is seen. No facial asymmetry is noticed on cranial nerve testing. - Labs CBC & Chem 7: 01/27/17 07:15 01/27/17 07:15 Labs: Abnormal Lab Results - Last 24 Hours (Table) 01/27/17 01/27/17 01/27/17 Range/Units 06:30 07:15 07:15 WBC 13.4 H (3.8-10.6) k/uL RBC 3.70 L (3.80-5.40) m/uL Hgb 11.1 L (11.4-16.0) gm/dL Plt Count 586 H (150-450) k/uL Neutrophils # 10.6 H (1.3-7.7) k/uL Chloride 113 H (98-107) mmol/L Carbon Dioxide 19 L (22-30) mmol/L BUN 18 H (7-17) mg/dL Creatinine 3.41 H (0.52-1.04) mg/dL Plasma Lactic Acid Benito (0.7-2.0) mmol/L Phosphorus (2.5-4.5) mg/dL Magnesium (1.6-2.3) mg/dL Total Protein 5.7 L (6.3-8.2) g/dL Albumin 3.0 L (3.5-5.0) g/dL Urine Opiates Screen Detected H (NotDetected) 01/27/17 01/27/17 Range/Units 07:15 07:15 WBC (3.8-10.6) k/uL RBC (3.80-5.40) m/uL Hgb (11.4-16.0) gm/dL Plt Count (150-450) k/uL Neutrophils # (1.3-7.7) k/uL Chloride (98-107) mmol/L Carbon Dioxide (22-30) mmol/L BUN (7-17) mg/dL Creatinine (0.52-1.04) mg/dL Plasma Lactic Acid Benito 0.5 L (0.7-2.0) mmol/L Phosphorus 5.0 H (2.5-4.5) mg/dL Magnesium 1.5 L (1.6-2.3) mg/dL Total Protein (6.3-8.2) g/dL Albumin (3.5-5.0) g/dL Urine Opiates Screen (NotDetected) Microbiology - Last 24 Hours (Table) 01/21/17 13:31 Blood Culture - Final Blood No Growth after 144 hours Assessment and Plan (1) Acute metabolic encephalopathy Status: Acute (2) Other encephalopathy Status: Acute (3) Drug overdose Status: Resolved (4) Cervicalgia Status: Chronic (5) Chronic pain syndrome Status: Chronic (6) Other chronic postoperative pain Status: Chronic Plan: The patient did have significant confusion early this morning and this is likely multifactorial. I do believe she had metabolic and toxic encephalopathy given her renal function and given her Ativan dose. I recommend holding off all benzodiazepine. Nephrology has been reconsulted and the patient is currently on IV hydration. Continue monitoring her renal function. An EEG will be ordered. Continue neuro checks. I will continue to follow with you. Further recommendations to follow. Time with Patient: Less than 30
[2017-01-28] MEDS: SODIUM CHLORIDE 0.9% 1,000 ML IV SCH ×3 (01:01→17:52)
[2017-01-28] MEDS: HEPARIN SODIUM,PORCINE 5,000 UNIT/ML 1 ML VIAL SQ SCH ×3 (01:01→17:53)
[2017-01-28] MEDS: ONDANSETRON 4 MG/2 ML VIAL IVP PRN (01:08)
[2017-01-28] MEDS: LEVOTHYROXINE 137 MCG TAB PO SCH (06:17)
[2017-01-28 07:03] LABS: Calcium 8.3 mg/dL (8.4-10.2)
[2017-01-28] MEDS: BUDESONIDE 0.5 MG/2 ML NEBU INHALATION SCH ×2 (08:07→19:29)
[2017-01-28] MEDS: IPRATROPIUM-ALBUTEROL 3 ML NEB INHALATION SCH ×3 (08:07→19:29)
[2017-01-28] MEDS: BACLOFEN 10 MG TAB PO SCH ×3 (08:44→20:58)
[2017-01-28] MEDS: OXYBUTYNIN CHLORIDE 5 MG TAB PO SCH ×3 (08:44→20:59)
[2017-01-28] MEDS: AMOXIC-POT CLAV 500-125 MG 1 EACH TAB PO SCH ×2 (08:44→20:59)
[2017-01-28] MEDS: CYANOCOBALAMIN 500 MCG TAB PO SCH (08:44)
[2017-01-28] MEDS: PANTOPRAZOLE 40 MG TABLET PO SCH (08:45)
[2017-01-28] MEDS: MORPHINE SULFATE ER 15 MG TABLET PO SCH (08:46)
[2017-01-28] MEDS: SODIUM FERRIC GLUCONAT-SUCROSE 125 MG in SODIUM CHLORIDE 0.9% 100 ML IVPB SCH (09:09)
--- NOTE | 2017-01-28 11:11 | P.PN ---
Subjective Patient seen and evaluated currently sitting up in the chair talkative sitter at bedside for patient safety patient is oriented to person place and event. Patient has been seen by nephrology neurology and psychiatric service. Patient continues to have episodes of transit altered mental status. Patient does make a comment: That she hopes to not go back to drinking alcohol when she gets out of here" corrections caseworker and social media intern pursuing the discharge plan. Patient continues to refuse to take her MS Contin. It been tapered down to 15 mg at bedtime. The outpatient setting patient had been taking a higher dose. Psychiatric service recommendations reviewed they do not see any need for psychotropic medication at this time. The creatinine this morning is 3.3 Objective - Vital Signs Vital signs: Vital Signs Temp 97.6 F 01/27/17 23:00 Pulse 86 01/28/17 07:00 Resp 16 01/28/17 07:00 BP 154/83 01/28/17 07:00 Pulse Ox 96 01/28/17 07:00 Intake & Output 01/27/17 01/28/17 01/28/17 18:59 06:59 18:59 Intake Total 800 2000 Balance 800 2000 Intake: Intake, IV Titration 800 2000 Amount Sodium Chloride 0.9% 1, 700 2000 000 ml @ 100 mls/hr IV . Q10H [facility] Rx#:[id number] Sodium Ferric Gluconat- 100 Sucrose 125 mg In Sodium Chloride 0.9% 100 ml @ 100 mls/hr IVPB DAILY [facility] Rx#:[id number] Other: Voiding Method Toilet Toilet # Voids 2 7 - Exam Physical exam 46-year-old female sitting up in a chair talkative oriented to person place and event. Sitter at the bedside. Lungs essentially clear adequate air movement on room air Heart S1-S2 audible and regular denying chest pain Abdomen soft nontender no nausea no vomiting no difficulty in urinating Extremities no edema noted - Labs CBC & Chem 7: 01/27/17 07:15 01/28/17 06:30 Labs: Abnormal Lab Results - Last 24 Hours (Table) 01/28/17 Range/Units 06:30 Chloride 114 H (98-107) mmol/L Carbon Dioxide 20 L (22-30) mmol/L Creatinine 3.32 H (0.52-1.04) mg/dL Calcium 8.3 L (8.4-10.2) mg/dL Microbiology - Last 24 Hours (Table) 01/21/17 13:31 Blood Culture - Final Blood No Growth after 144 hours Assessment and Plan Plan: Impression Recent admission on 01/08/2017 for acute hypoxic respiratory failure suspect due to a polysubstance drug overdose resolved Recent Blood cultures positive for MRSA Chest x-ray right upper lobe pneumonia Recent admission 01/08/2017 acute metabolic encephalopathy suspect due to medication Recent admission for treatment of on 01/08/2017 Drug overdose unclear if intentional or unintentional recent admission and treatment for on 01/08/2017 severe recent admission 01/08/2017 for treatment of sepsis with septic shock suspect due to MRSA pneumonia and bacteremia Recent admission treatment for on 01/08/2017 aspiration pneumonia right lower lobe likely due to MRSA with acute hypoxic respiratory failure Urine culture present on admission positive for UTI with Micki New onset Acute renal failure suspect due to vancomycin vancomycin has been stopped New-onset acute encephalopathy unclear etiology MS morphine withdraw not excluded A recent admission 01/08/2017 acute hypoxic respiratory failure suspect due to polysubstance drug overdose an anoxic brain injury could not be ruled out Transit episodes of altered mental status suspect due to metabolic and toxic anoxic encephalopathy Plan Aspiration precautions DVT and GI prophylaxis Resume home meds as appropriate Further recommendations pending Continue with PT OT IV fluid at 75 mL an hour Hold discharge opinion polls survey worker pursuing the home situation The above impression and plan of care have been discussed and directed by signing physician. Vero Hernandez nurse practitioner acting as scribe for signing physician.
[2017-01-28] MEDS: FOLIC ACID 1 MG TAB PO SCH (13:25)
--- NOTE | 2017-01-28 13:48 | P.PN ---
Progress Note - Text Interval History: Patient is a 46-year-old female who is being seen in follow- up to a consultation. Patient yesterday had received IV Ativan and had become lethargic, confused and restless. Today the patient when responding to my questions was extremely circumstantial and needed constant redirection to answer the question. Patient was able to report that she is having some difficulty organizing her thoughts and still feels a little foggy. Patient was restless in her chair and states it is due to having some GI problems related to dairy product intolerance. Patient reported she was feeling well and had no complaints. Mental Status:Appearance/Attitude: Patient was appropriately dressed and sitting in a chair in her hospital room in no acute distress and was cooperative and made good eye contact. Behavior: Patient did not display any psychomotor agitation or retardation however she had difficulty sitting still in her chair Speech/Language: Patient's speech was spontaneous, normal volume and rhythm and she was coherent. Thought Process: Patient was not goal-directed was circumstantial and responding to questions and with redirection continue to have great difficulty responding to questions. Patient did not display any flight of ideas or loose associations. Thought Content: Patient denied any auditory or visual hallucinations and no delusions or paranoid ideation were elicited. Patient was able to report that she still was having some difficulty organizing her thoughts. Patient was able to tell me why she was in the hospital. Patient in responding to questions was very circumstantial and at times was rambling on and on without ever answering the question. Suicidal/Homicidal Ideation: Patient denied any current suicidal or homicidal ideation Sensorium/Cognition: Patient is alert and oriented to person, place and situation and she was able to repeat 3 items immediately and recalled the same 3 items after 5 minutes. Patient was unable to perform serial sevens, her responses were 67, 60, 62 and 52. 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 Patient continues to have some difficulty focusing and concentrating. Mood/Affect: Patient's mood was pleasant and her affect was appropriate Insight/Judgement: Patient's insight and judgment are fair. Assessment: Patient today is alert however her concentration and ability to focus and remain poor, she has great difficulty in responding to questions effectively becoming quite circumstantial and had difficulty doing serial sevens due to her inability to remain focused on the task. She is not expressing any complaints of depression and not reporting any suicidal ideation. I spoke with the Dr Andino and Vero Hernandez. Plan: Patient has improved but continues to have difficulty focusing and concentrating and is very circumstantial when responding to questions. She reported that she did not sleep well last evening. I discussed with the patient and with her primary care team about Risperdal to treat her delirium. I will start Risperdal 0.25 mg at night and evaluate her response to this. I discussed with the patient that the medication should assist in clearing her thinking so that she is not feeling as foggy and is more organized.
--- NOTE | 2017-01-28 14:05 | P.PN ---
Subjective 01/21/17-This is a 46-year-old female patient being seen, examined and evaluated today on the fifth floor. This patient originally presented to the emergency room on 01/08/2017 via EMS for overdose. Apparently the patient was at home and her roommate found her unresponsive around multiple bottles of pills, therefore the remaining forced her to vomit before EMS arrived. When EMS arrived they did note that there was pill fragments in her vomit. EMS did give the patient Narcan with minimal improvement of her symptoms. It is unclear what medications the patient did consume however there is speculation that it was morphine, gabapentin and baclofen. The patient's urine drug screen was positive for opiates, tricyclic antidepressants, cocaine and marijuana. Poison control was also following the patient. The patient was on mechanical ventilation with propofol for sedation she also noted to have a right lower lobe aspiration pneumonia. The patient was on mechanical ventilation for several days and had a neurological evaluation as well. It was felt that the patient suffered an anoxic brain injury and after 2 brain CTs and 3 EEGs. The patient was not showing any neurological improvements or advancement. The patient's power of roll examiner Natalya was updated daily on her condition and Natalya was requesting that the patient be made comfort care with hospice. The patient was trialed on CPAP with his sedation holidays on a daily basis and again before extubation and the patient was unable to tolerate it, her heart rate as well as a respiratory rate increased significantly. Patient was ultimately switched over to comfort care/hospice per power of roll examiner's request. Apparently over the last 2 days the patient was showing some clinical improvement therefore the patient's power of roll examiner Natalya requested we take her off of hospice and restart medical management. Upon examination today the patient is resting up in bed and is somewhat lethargic, she is able to follow simple commands, she is extremely weak and has some shortness of breath with activity. Patient is able to recall some of her long-term memory, however short -term memory seems to be impaired. Patient does not remember coming to the hospital or why she is here. She does recognize her daughter as well as her mother at bedside. Currently she is on a pured diet and is tolerating that well. Patient denies any pain or any further complaints. 01/22/17- Patient being seen examined and evaluated on the fifth floor today. Patient is doing well she is resting up in bed on room air. All labs chest x- ray has been reviewed. Chest x-ray does show focal, consolidation within the right lower lobe and to a lesser degree within the right middle lobe suggestion of her aspiration pneumonia. Scattered atelectasis and trace effusions are also noted. Overall the patient states she is feeling better in regards to her breathing. Denies any cough or congestion at this time does have some shortness of breath with exertion. She may be a candidate for possible inpatient rehabilitation. 01/23/17- patient being examined and evaluated 17 on rounds. Currently the patient's resting up in a chair on room air. overall the patient feels better today , speech therapy is evaluating the patient today and she appears to be reluctant to participate. her family is at bedside have been updated on the patient's plan of care and prognosis. patient will have a PICC line insertion today. discharge planning is in process it is unclear whether the patient will go home with home care or go to a subacute rehab facility. patient denies any shortness of breath coughing or congestion today. The patient is seen again today 01/24/2017 in follow-up on the regular medical floor. She is currently sitting up in bed. She denies any worsening shortness of breath, cough or congestion. He is maintaining good O2 saturations in the 90s on room air. She's been afebrile. Hemodynamically stable. Her urine cultures positive for micki glabrata she is currently on vancomycin and Zosyn. Infectious diseases on the case. She is also noted to have acute thrombocytosis and hematology is on the case as well. Patient is seen again today in follow-up 01/28/2017 on the regular medical floor. She remains awake and alert in no acute distress. She is currently sitting up in the chair at the bedside. His maintaining good O2 saturations in the upper 90s on room air. She is maintained on bronchodilators and Pulmicort. He remains on Augmentin and vancomycin. Urine culture was positive for Micki glabrata. Blood cultures were no growth. She's been afebrile. Se has had ongoing issues with acute renal failure. Current creatinine 3.32. Objective - Vital Signs Vital signs: Vital Signs Temp 97.6 F 01/27/17 23:00 Pulse 86 01/28/17 07:00 Resp 16 01/28/17 07:00 BP 154/83 01/28/17 07:00 Pulse Ox 96 01/28/17 07:00 Intake & Output 01/27/17 01/28/17 01/28/17 18:59 06:59 18:59 Intake Total 800 2000 Balance 800 2000 Weight 79.5 kg Intake: Intake, IV Titration 800 2000 Amount Sodium Chloride 0.9% 1, 700 2000 000 ml @ 100 mls/hr IV . Q10H [facility] Rx#:[id number] Sodium Ferric Gluconat- 100 Sucrose 125 mg In Sodium Chloride 0.9% 100 ml @ 100 mls/hr IVPB DAILY R[facility] Rx#:[id number] Other: Voiding Method Toilet Toilet # Voids 2 7 - Exam GENERAL EXAM: Alert, active, comfortable in no apparent distress. HEAD: Normocephalic. EYES: Normal reaction of pupils, equal size. NOSE: Clear with pink turbinates. THROAT: No erythema or exudates. NECK: No masses, no JVD. CHEST: No chest wall deformity. LUNGS: Equal air entry with no crackles, wheeze, rhonchi or dullness. Diminished. CVS: S1 and S2 normal with no audible murmurs, regular rhythm. ABDOMEN: No hepatosplenomegaly, normal bowel sounds, no guarding or rigidity. SPINE: No scoliosis or deformity SKIN: No rashes CENTRAL NERVOUS SYSTEM: No focal deficits, tone is normal in all 4 extremities. - Labs CBC & Chem 7: 01/27/17 07:15 01/28/17 06:30 Labs: Abnormal Lab Results - Last 24 Hours (Table) 01/28/17 Range/Units 06:30 Chloride 114 H (98-107) mmol/L Carbon Dioxide 20 L (22-30) mmol/L Creatinine 3.32 H (0.52-1.04) mg/dL Calcium 8.3 L (8.4-10.2) mg/dL Microbiology - Last 24 Hours (Table) 01/21/17 13:31 Blood Culture - Final Blood No Growth after 144 hours Assessment and Plan Plan: Impression: #1 Acute hypoxic respiratory failure secondary to suspected aspiration pneumonia secondary to drug overdose. Recovered. #2 Aspiration pneumonia secondary to MRSA. #3 Bacteremia secondary to MRSA. #4 Urinary tract infection secondary to Micki glabrata #5 Severe septic shock, recovered. #6 Encephalopathy, recovered. Plan: The patient was seen and evaluated by Dr. Rodriguez. She remains stable from the pulmonary and critical care standpoint. Social work is involved regarding discharge planning. Infectious disease, neurology, psychiatry and nephrology on the case as well. Follow-up the patient on as-needed basis.
--- NOTE | 2017-01-28 15:11 | PN ---
DATE OF SERVICE: 01/27/2017 REASON FOR FOLLOW UP: 1 Aspiration pneumonia. 2. MRSA bacteremia now with development of renal insufficiency. INTERVAL HISTORY: The patient is afebrile. The patient noticed to have more mental status changes. She has been weak and lethargic. A little bit ( ). No nausea, vomiting or any diarrhea. On examination, blood pressure 155/90 with a pulse of 87, temperature 97.4, she is 99% on room air. GENERAL DESCRIPTION: Middle-aged female lying in bed in no distress. RESPIRATORY: Unlabored breathing. Clear to auscultation anteriorly. HEART: S1/S2 regular. ABDOMEN: Soft, no tenderness. LAB: Hemoglobin 11.1, white count 13.4. BUN 18, creatinine 3.41. DIAGNOSTIC IMPRESSION: 1. Patient with methicillin-resistant Staphylococcus aureus and bacteremia. So far the blood culture is negative. She has been on vancomycin now with development of renal insufficiency. Vancomycin has been put on hold. Nephrology is on the case. Will continue to monitor renal function closely ( ) and finish antibiotic therapy. 2. Aspiration, currently on the Augmentin which she will need for another 5-7 days. MTDD
--- NOTE | 2017-01-28 17:06 | P.PN ---
Subjective Principal diagnosis: Patient is a 46-year-old female who is being followed by the neurology service for transient episode of altered mental status. Patient had been seen prior for altered mental status which had significantly improved. Patient had medication overdose and suicide attempt and had been unresponsive for several days. Patient improved and returned to baseline. Patient's return of altered mental status seems to be multifactorial. Patient was given Ativan for anxiety which significantly changed her mental status. Reportedly mental status improved as the day progressed. At the time of my evaluation she appears to be back to baseline, she is alert and conversant. She appears to be in no acute distress. Objective - Vital Signs Vital signs: Vital Signs Temp 97.2 F L 01/28/17 15:00 Pulse 78 01/28/17 15:58 Resp 16 01/28/17 15:46 BP 160/88 01/28/17 15:00 Pulse Ox 97 01/28/17 15:00 Intake & Output 01/27/17 01/28/17 01/28/17 18:59 06:59 18:59 Intake Total 800 2000 1420 Output Total 500 Balance 800 2000 920 Weight 79.5 kg Intake: Intake, IV Titration 800 2000 700 Amount Sodium Chloride 0.9% 1, 700 2000 700 000 ml @ 100 mls/hr IV . Q10H [facility] Rx#:[id number] Sodium Ferric Gluconat- 100 Sucrose 125 mg In Sodium Chloride 0.9% 100 ml @ 100 mls/hr IVPB DAILY [facility] Rx#:[id number] Oral 720 Output: Urine 500 Other: Voiding Method Toilet Toilet Toilet # Voids 2 7 3 - Exam PHYSICAL EXAM: GENERAL APPEARANCE: Patient is a well-developed, female who appears to be in no acute distress. HEENT: Normocephalic, atraumatic, no facial asymmetry is seen. Neck is supple with no masses felt. CARDIOVASCULAR: Regular rate and rhythm. ABDOMEN: Nontender, nondistended. EXTREMITIES: Show no edema or clubbing. NEUROLOGICAL EXAM: Patient is awake, alert, and oriented 3. Speech and language are normal. Strength is full in all 4 extremities. Sensory exam is normal to light touch in all 4 extremities. No facial asymmetry is seen on cranial nerve testing. No tremors or seizure-like activity is noted. - Labs CBC & Chem 7: 01/27/17 07:15 01/28/17 06:30 Labs: Abnormal Lab Results - Last 24 Hours (Table) 01/28/17 Range/Units 06:30 Chloride 114 H (98-107) mmol/L Carbon Dioxide 20 L (22-30) mmol/L Creatinine 3.32 H (0.52-1.04) mg/dL Calcium 8.3 L (8.4-10.2) mg/dL Microbiology - Last 24 Hours (Table) 01/21/17 13:31 Blood Culture - Final Blood No Growth after 144 hours Assessment and Plan Plan: Impression: 1. Acute metabolic encephalopathy 2. Toxic encephalopathy 3. Drug overdose 4. Chronic pain syndrome Recommendation: Reportedly patient did have significant confusion yesterday which has since resolved. Confusion seems to be multifactorial in nature. Reportedly she has had no further incidents of combative behavior. Patient does have sitter at the bedside. I continue to recommend holding off on benzodiazepines. An EEG was performed and results are pending. Continue neurological checks. Continue management per infectious disease and nephrology. I will continue to follow with you. Further recommendations to follow. I performed an examination of the patient and discussed the management with the MECHANICAL SYSTEM TECHNICIAN. I have reviewed the MECHANICAL SYSTEM TECHNICIAN notes and agree with the findings and plan of care.
[2017-01-28] MEDS: risperiDONE 0.25 MG TAB PO SCH (20:59)
--- NOTE | 2017-01-28 23:06 | PN ---
Patient is seen for followup for acute kidney injury secondary to vancomycin toxicity. She is currently sitting up in the bed. Her mentation appears to be slightly improved, although she is still requiring a sitter and remains confused. On examination, blood pressure is 154/83, heart rate 86 per minute. She is afebrile. EXAMINATION OF THE HEART: S1, S2. EXAMINATION OF LUNGS: Bilateral breath sounds are heard. Abdomen is soft, non-tender. Examination of lower extremities shows no evidence of edema. INFANT CHILDCARE PROVIDER exam shows patient is moving all 4 extremities. She is confused. Labs show sodium 145, potassium 4.0, BUN 16, serum creatinine down to 3.32. Hemoglobin 11.1 from yesterday. ASSESSMENT: 1. Acute kidney injury secondary to vancomycin toxicity. Her UA is completely benign at this time. Patient is off of the vancomycin. Serum creatinine is just a little bit better than yesterday. We will continue to monitor. She has good urine output. 2. History of polysubstance abuse. 3. History of vent-dependent respiratory failure. 4. Bacteremia with MRSA, status post vancomycin; being followed by ID. Currently on Augmentin. 5. Hypothyroidism. PLAN: Repeat labs in a.m. Continue to encourage increased oral intake. MTDD
[2017-01-29] MEDS: HEPARIN SODIUM,PORCINE 5,000 UNIT/ML 1 ML VIAL SQ SCH ×4 (01:01→23:26)
--- NOTE | 2017-01-29 05:24 | EEG ---
DATE OF SERVICE: 01/28/2017 REASON FOR TESTING: Altered mental status. DESCRIPTION OF THE PROCEDURE: This EEG was performed using a 21-channel digital electroencephalograph, following international 10-20 system. DESCRIPTION OF THE RECORDING: From the beginning of the tracing, and with the patient's eyes closed, the background rhythm was mostly consisting of 7 Hz theta frequency in the posterior occipital leads. No obvious asymmetry is seen. Photic stimulation was performed with a minimal driving response seen. No pathological waves were elicited. Frequent muscle and movement artifacts are seen. Hypertension was not performed. The patient remains awake throughout the tracing. No epileptiform discharges were seen. INTERPRETATION: This awake EEG is abnormal due to the presence of generalized slowing of the background rhythm, mostly in the theta range. This is consistent with mild encephalopathy. No epileptiform discharges were seen. The absence of epileptiform discharges does not rule out the diagnosis of epilepsy, therefore clinical correlation is recommended. MTDD
[2017-01-29] MEDS: LEVOTHYROXINE 137 MCG TAB PO SCH (06:05)
[2017-01-29 06:44] LABS: Calcium 8.3 mg/dL (8.4-10.2); Potassium 3.7 mmol/L (3.5-5.1)
[2017-01-29] MEDS: IPRATROPIUM-ALBUTEROL 3 ML NEB INHALATION SCH ×3 (07:07→19:08)
[2017-01-29] MEDS: SODIUM CHLORIDE 0.9% 1,000 ML IV SCH ×2 (07:07→12:28)
[2017-01-29] MEDS: BUDESONIDE 0.5 MG/2 ML NEBU INHALATION SCH ×2 (07:07→19:08)
[2017-01-29] MEDS: OXYBUTYNIN CHLORIDE 5 MG TAB PO SCH ×3 (08:41→21:36)
[2017-01-29] MEDS: BACLOFEN 10 MG TAB PO SCH ×3 (08:41→21:37)
[2017-01-29] MEDS: PANTOPRAZOLE 40 MG TABLET PO SCH (08:42)
[2017-01-29] MEDS: CYANOCOBALAMIN 500 MCG TAB PO SCH (08:42)
[2017-01-29] MEDS: AMOXIC-POT CLAV 500-125 MG 1 EACH TAB PO SCH (08:44)
[2017-01-29] MEDS: MORPHINE SULFATE ER 15 MG TABLET PO SCH ×2 (08:45→12:22)
--- NOTE | 2017-01-29 09:07 | PN ---
DATE OF SERVICE: 01/28/2017 REASON FOR FOLLOW UP: MRSA bacteremia and aspiration pneumonia. INTERVAL HISTORY: The patient is afebrile. She is more awake and alert today. She is breathing comfortably. Denies significant chest pain or shortness of breath, occasional cough. No abdominal pain or diarrhea. On examination: Blood pressure 160/88 with pulse of 78. Temperature 97.2. She is 97% on room air. General description is a middle-aged female up in the bed in no distress. RESPIRATORY: Unlabored breathing. Decreased breath sounds in the bases. No wheeze. HEART: S1, S2 regular rate and rhythm. ABDOMEN: Soft, no tenderness. LABS: Hemoglobin is 11.1, white count is 13.4 with BUN of 16, creatinine 3.32. DIAGNOSTIC IMPRESSION AND PLAN: 1. Patient with MRSA bacteremia. Follow up blood culture has been negative. Patient is currently on vancomycin and developed nephrotoxicity from it. Renal function is slightly improved. Vanco level still therapeutic and if still therapeutic Thursday, patient will manage to go home on IV antibiotic therapy. Plan of care was discussed in detail with nurse practitioner from the primary team. 2. Patient with aspiration pneumonia currently being covered with oral Augmentin. MTDD
[2017-01-29] MEDS: VANCOMYCIN 1,500 MG in SODIUM CHLORIDE 0.9% 250 ML IVPB ONE ×2 (12:27→12:41)
[2017-01-29] MEDS: FOLIC ACID 1 MG TAB PO SCH (12:35)
--- NOTE | 2017-01-29 15:08 | P.PN ---
Subjective Patient is seen in follow-up for acute kidney injury which is due to vancomycin toxicity. Renal function is improving. Creatinine down to 3.16 today. Her oral intake is good. She is off vancomycin at this time. No vomiting or diarrhea. Denies chest pain or shortness of breath. Admits to good urine output. Vital signs are stable. General: The patient appeared well nourished and normally developed. HEENT: Head exam is unremarkable. Neck is without jugular venous distension. LUNGS: Lungs are clear to auscultation and percussion. Breath sounds decreased. HEART: Rate and Rhythm are regular. First and second heart sounds normal. No murmurs, rubs or gallops. ABDOMEN: Abdominal exam reveals normal bowel sounds. Non-tender and non- distended. No evidence of peritonitis. EXTREMITITES: No clubbing, cyanosis, or edema. Objective - Vital Signs Vital signs: Vital Signs Temp 98 F 01/29/17 07:00 Pulse 65 01/29/17 08:00 Resp 20 01/29/17 08:00 BP 155/81 01/29/17 07:00 Pulse Ox 100 01/29/17 07:00 Intake & Output 01/28/17 01/29/17 01/29/17 18:59 06:59 18:59 Intake Total 1780 1040 Output Total 1100 Balance 680 1040 Weight 79.5 kg Intake: Intake, IV Titration 700 800 Amount Sodium Chloride 0.9% 1, 700 800 000 ml @ 100 mls/hr IV . Q10H [facility] Rx#:[id number] Oral 1080 240 Output: Urine 1100 Other: Voiding Method Toilet Bedside Commode Toilet # Voids 2 4 # Bowel Movements 1 - Labs CBC & Chem 7: 01/27/17 07:15 01/29/17 06:15 Labs: Abnormal Lab Results - Last 24 Hours (Table) 01/29/17 Range/Units 06:15 Chloride 113 H (98-107) mmol/L Carbon Dioxide 20 L (22-30) mmol/L Creatinine 3.16 H (0.52-1.04) mg/dL Calcium 8.3 L (8.4-10.2) mg/dL Assessment and Plan Plan: Assessment: #1. Nonoliguric acute kidney injury secondary to vancomycin toxicity. Renal function gradually improving with creatinine down to 3.16 today. Baseline creatinine is 1. Recent urinalysis completely benign. #2. Metabolic acidosis secondary to acute kidney injury. #3. Hypertension. Uncontrolled. Partially related to IV fluids. #4. Recent MRSA bacteremia with blood cultures drawn on 01/08/2017. Plan: Decrease rate of IV fluids to 50 mL an hour as oral intake is good. Add oral sodium bicarbonate 650 mg twice daily. Antibiotics per infectious disease recommendations. Repeat electrolytes in the morning.
--- NOTE | 2017-01-29 15:46 | P.PN ---
Subjective Principal diagnosis: Patient is a 46-year-old female who is being followed by the neurology service for transient episode of altered mental status. Patient had been seen prior for altered mental status which had significantly improved. Patient had medication overdose and suicide attempt and had been unresponsive for several days. Patient improved and returned to baseline. Patient's return of altered mental status seems to be multifactorial. Patient was given Ativan for anxiety which significantly changed her mental status. Reportedly mental status improved as the day progressed. At the time of my evaluation she appears to be back to baseline, she is alert and conversant. She appears to be in no acute distress. 01/29/2017 Patient is a 46-year-old female who is being followed by the neurology service for altered mental status. Patient's mental status has significantly improved. No further reported combative behavior. Patient no longer requires a sitter. At the time of my evaluation, patient ambulating well in the room and appears to be in in no acute distress. Objective - Vital Signs Vital signs: Vital Signs Temp 98 F 01/29/17 07:00 Pulse 65 01/29/17 08:00 Resp 20 01/29/17 08:00 BP 155/81 01/29/17 07:00 Pulse Ox 100 01/29/17 07:00 Intake & Output 01/28/17 01/29/17 01/29/17 18:59 06:59 18:59 Intake Total 1780 1040 Output Total 1100 Balance 680 1040 Weight 79.5 kg Intake: Intake, IV Titration 700 800 Amount Sodium Chloride 0.9% 1, 700 800 000 ml @ 100 mls/hr IV . Q10H [facility] Rx#:[id number] Oral 1080 240 Output: Urine 1100 Other: Voiding Method Toilet Bedside Commode Toilet # Voids 2 4 # Bowel Movements 1 - Exam PHYSICAL EXAM: GENERAL APPEARANCE: Patient is a well-developed, female who appears to be in no acute distress. HEENT: Normocephalic, atraumatic, no facial asymmetry is seen. Neck is supple with no masses felt. CARDIOVASCULAR: Regular rate and rhythm. ABDOMEN: Nontender, nondistended. EXTREMITIES: Show no edema or clubbing. NEUROLOGICAL EXAM: Patient is awake, alert, and oriented 3. Speech and language are normal. Strength is full in all 4 extremities. Sensory exam is normal to light touch in all 4 extremities. No facial asymmetry is seen on cranial nerve testing. No tremors or seizure-like activity is noted. - Labs CBC & Chem 7: 01/27/17 07:15 01/29/17 06:15 Labs: Abnormal Lab Results - Last 24 Hours (Table) 01/29/17 Range/Units 06:15 Chloride 113 H (98-107) mmol/L Carbon Dioxide 20 L (22-30) mmol/L Creatinine 3.16 H (0.52-1.04) mg/dL Calcium 8.3 L (8.4-10.2) mg/dL Assessment and Plan Plan: Impression: 1. Acute metabolic encephalopathy 2. Toxic encephalopathy 3. Drug overdose 4. Chronic pain syndrome Recommendation: Patient's altered mental status has resolved. Confusion seems to be multifactorial in nature. Reportedly she has had no further incidents of combative behavior. Patient no longer requires sitter at the bedside. I continue to recommend holding off on benzodiazepines. An EEG was performed and shows mild encephalopathy. Continue neurological checks. Continue management per infectious disease and nephrology. I will continue to follow with you on an as-needed basis. Patient is stable from a neurological standpoint for discharge. I performed an examination of the patient and discussed the management with the [employer] TEACHER. I have reviewed the H[employer] STUD[employer] TEACHER notes and agree with the findings and plan of care.
--- NOTE | 2017-01-29 16:19 | P.PN ---
Progress Note - Text Interval History: Patient is a 46-year-old female who is being seen in follow- up for a consultation after an overdose on multiple medications. I was asked to reconsult the patient due to some confusion, agitation. Patient is seen today in her room and she is sitting quietly on her bed, she reports that her thinking is clearer and she is able to focus better today. She reports that she did not sleep much last evening. Patient reports that she has been eating. She reported that she is not feeling as foggy a she was yesterday when I saw her. She states that they plan to discharge her tomorrow. Mental Status: Appearance/Attitude: Patient was dressed in appropriate clothing , was cooperative and made good eye contact. Behavior: Patient did not exhibit any psychomotor agitation or retardation and she was sitting quietly today. Speech/Language: Patient's speech was spontaneous and of normal volume and rhythm and she was coherent. Thought Process: Patient was goal-directed and was only slightly circumstantial , no tangentiality, no loose associations or flight of ideas. Thought Content: Patient denied any auditory or visual hallucinations and no paranoid ideation or delusional ideation was elicited. Patient reported that she felt her thinking was clear, better focus and she was not feeling as foggy. Suicidal/Homicidal Ideation: She denied any current suicidal or homicidal ideation. Sensorium/Cognition: Patient was alert and oriented to person, place, and time and her memory was grossly intact and her focus and concentration were improved Mood/Affect: Patient's mood was euthymic and her affect was appropriate. Insight/Judgement: Patient's insight and judgment are fair. Assessment: Patient continues to show improvement of her confusion, she is more focused today and reports that her thinking is less foggy. Patient was much less circumstantial and was able to respond appropriately to questions in a goal -directed fashion. Patient was not as restless and stated that she felt calmer today. Plan: Patient has showed improvement and would continue the Risperdal 0.25 mg at bedtime while the patient is in the hospital, when the patient is discharged I would not continue the medication as her confusion has decreased and the patient has improved. Patient and I discussed counseling as an outpatient and she states that she has gone to the [facility] in the past and would certainly return there should she have any difficulties coping with the loss of her boyfriend. I will sign off the case and if there are any further questions or concerns please don't hesitate to contact me.
[2017-01-29] MEDS: SODIUM BICARBONATE TAB 650 MG TAB PO SCH (21:36)
[2017-01-29 21:37] VITALS: RESP 16
[2017-01-29] MEDS: risperiDONE 0.25 MG TAB PO SCH (21:37)
[2017-01-30] MEDS: SODIUM CHLORIDE 0.9% 1,000 ML IV SCH (05:57)
[2017-01-30] MEDS: LEVOTHYROXINE 137 MCG TAB PO SCH (06:21)
[2017-01-30 06:31] LABS: Potassium 3.9 mmol/L (3.5-5.1)
[2017-01-30] MEDS ORDERED: SODIUM CHLORIDE 0.45% 1,000 ML IV SCH (06:45)
[2017-01-30] MEDS: BUDESONIDE 0.5 MG/2 ML NEBU INHALATION SCH (07:18)
[2017-01-30] MEDS: IPRATROPIUM-ALBUTEROL 3 ML NEB INHALATION SCH ×2 (07:18→11:08)
[2017-01-30 07:37] VITALS: BP 185/98; PULSE 78; TEMP 97.7
--- NOTE | 2017-01-30 07:45 | PN ---
DATE OF SERVICE: 01/29/2017 Reason for follow up is MRSA bacteremia and aspiration pneumonia. INTERVAL HISTORY: The patient is afebrile. She is feeling better, breathing comfortably. Patient denies any significant chest pain or shortness of breath. No cough, no nausea, vomiting, abdominal pain or any diarrhea. On examination, blood pressure 155/81 with a pulse of 65, temperature 98, she is 100% on room air. General description is a middle-aged female, up in the room in no distress. RESPIRATORY SYSTEM: Unlabored breathing, clear to auscultation anteriorly. HEART: S1, S2, regular rate and rhythm. ABDOMEN: Soft, no tenderness. LABS: Creatinine is down to 3.16, vanco level is 17.9. DIAGNOSTIC IMPRESSION AND PLAN: 1. Patient with a methicillin-resistant Staphylococcus aureus bacteremia, adequately treated. Patient did develop ( ) to vancomycin. However, currently her kidney function is improving. Will go ahead and discontinue the vancomycin. The patient's underlying infection has been adequately treated. 2. Patient with an aspiration pneumonia. She will continue on p.o. Augmentin for another 5 days. PICC line should be discontinued at the time of discharge. MTDD
[2017-01-30] MEDS ORDERED: VANCOMYCIN 1,500 MG in SODIUM CHLORIDE 0.9% 250 ML IVPB ONE (09:00)
--- NOTE | 2017-01-30 09:06 | PN ---
Patient is seen for follow up for acute kidney injury secondary to vancomycin toxicity. Her serum creatinine has been at 3.1 to 3.3 mg/dL. She is maintained on IV fluids. Patient wants to go home. She has had good urine output. Vancomycin was discontinued. From Nephrology standpoint the patient could be discharged with plans to follow up as outpatient in one weeks time. On examination today, blood pressure is 155/93, heart rate is 113 per minute. She is afebrile. Examination of the heart: S1, S2. Examination of lungs: Decreased breath sounds at the bases. Abdomen is soft, nontender. Obese. Examination of lower extremities shows 1+ edema bilaterally. Labs show sodium of 148, potassium 3.9, BUN 20, serum creatinine 3.3 mg/dL. ASSESSMENT: 1. Acute kidney injury secondary to vancomycin toxicity. Patient can be discharged from nephrology standpoint. She will follow up in the outpatient. She will repeat labs in about 4 to 5 days post discharge. 2. Altered mentation seems to have improved. 3. Status post drug overdose and vent dependent respiratory failure. 4. Metabolic acidosis secondary to acute kidney injury maintained on oral sodium bicarb. PLAN: Continue with oral sodium bicarb and patient can be discharged on nephrology standpoint. She will follow up as outpatient in about one weeks time. CLARI
[2017-01-30] MEDS: SODIUM BICARBONATE TAB 650 MG TAB PO SCH (09:27)
[2017-01-30] MEDS: PANTOPRAZOLE 40 MG TABLET PO SCH (09:27)
[2017-01-30] MEDS: BACLOFEN 10 MG TAB PO SCH (09:27)
[2017-01-30] MEDS: CYANOCOBALAMIN 500 MCG TAB PO SCH (09:27)
[2017-01-30] MEDS: HEPARIN SODIUM,PORCINE 5,000 UNIT/ML 1 ML VIAL SQ SCH (09:28)
[2017-01-30] MEDS: OXYBUTYNIN CHLORIDE 5 MG TAB PO SCH (09:34)
[2017-01-30] MEDS: MORPHINE SULFATE ER 15 MG TABLET PO SCH (09:40)
[2017-01-30] MEDS: FOLIC ACID 1 MG TAB PO SCH (13:49)
--- NOTE | 2017-01-30 14:45 | P.DS ---
Providers Date of admission: 01/20/17 17:32 Expected date of discharge: 01/30/17 Attending physician: Philip Andino Consults: 01/20/17 19:03 Consult Physician Routine Consulting Provider: Leonel Marquez Consult Reason/Comments: infection Do you want consulting provider notified?: Already Contacted 01/20/17 19:04 Consult Physician Routine Consulting Provider: Brendon Garcia Consult Reason/Comments: off hospice Do you want consulting provider notified?: Already Contacted Consult Physician Urgent Consulting Provider: Brian To Consult Reason/Comments: neurologic changes off hospice Do you want consulting provider notified?: Already Contacted 01/20/17 19:07 Consult Physician Urgent Consulting Provider: Samantha Martinez Consult Reason/Comments: polysubstance drug overdose Do you want consulting provider notified?: Already Contacted 01/21/17 11:09 Consult Physician Routine Consulting Provider: Cedric Tolbert Consult Reason/Comments: eval for inpatient rehab Do you want consulting provider notified?: Yes 01/23/17 13:55 Consult Physician Routine Consulting Provider: Luca Parrish Consult Reason/Comments: high platelets Do you want consulting provider notified?: Yes 01/26/17 10:05 Consult Physician Urgent Consulting Provider: Samantha Martinez Consult Reason/Comments: concern about the home situation questionable at risk for suicide ideation Do you want consulting provider notified?: Yes 01/26/17 11:59 Consult Physician Urgent Consulting Provider: Mamta Villar Consult Reason/Comments: Acute renal failure Do you want consulting provider notified?: Yes Primary care physician: Philip Andino [facility] Course: This is a 46-year-old female who was admitted on January 20 after patient was in hospice showed a clinical improvement was taken off of hospice care and restarted on medical care. Patient had recently presented to the emergency room on January 08 after patient was treated for polysubstance drug over dose necessitating intubation and vent support for acute hypoxic respiratory failure. Patient was admitted to the intensive care unit monitored closely patient was able to be extubated and transferred from the ICU to a stepdown unit with the family questing patient under hospice care. Hospice care was initiated patient made a significant clinical improvement the family wanted hospice care stopped and medical care resumed. The patient's urine drug screen was positive on January 08 for opiates, dicyclomine antidepressants, cocaine and marijuana. Patient remained on mechanical ventilation for several days and had a neurological eval done. It was felt that the patient had suffered an anoxic brain injury after to brain scans and 3 EEGs. Patient was not showing any significant neurological improvement or advancement. The patient's power of gang worker Natalya was updated daily on the patient's condition. was requesting that the patient be made comfort care with hospice. This was initiated within 48 hours patient made a significant improvement clinically the patient was taken off of the hospice care discharged from hospice and admitted on January 20 to medical's service. Patient was seen throughout the hospitalization with physical occupational therapy. Psych eval was also requested. For episodes of confusion. 6 recommendations were patient needed outpatient counseling. Patient reportedly boyfriend recently . Psych service indicated that there would be no need to continue any medication. Patient was trialed on respiratory 0.25 at bedtime all in the hospital but this did not need to be continued in the outpatient setting were no further psych recommendations. As mentioned patient stated that she had [facility] it would certainly return there should she have any difficulties coping with loss of her boyfriend. The creatinine on the day of discharge was 3.3. Nephrology indicate the patient was appropriate to be transferred just continue with sodium bicarb tablets as ordered patient was also felt to be stable from a neurological standpoint and was ready to be transferred to subacute rehab. An EEG was performed showed mild encephalopathy. Patient was [facility] to the [facility] facility felt to be medically stable Impression Recent admission on 01/08/2017 for acute hypoxic respiratory failure suspect due to a polysubstance drug overdose resolved Recent Blood cultures positive for MRSA Chest x-ray right upper lobe pneumonia Recent admission 01/08/2017 acute metabolic encephalopathy suspect due to medication Recent admission for treatment of on 01/08/2017 Drug overdose unclear if intentional or unintentional recent admission and treatment for on 01/08/2017 recent admission 01/08/2017 for treatment of sepsis with septic shock suspect due to MRSA pneumonia and bacteremia Recent admission treatment for on 01/08/2017 aspiration pneumonia right lower lobe likely due to MRSA with acute hypoxic respiratory failure Urine culture present on admission positive for UTI with Micki New onset Acute renal failure suspect due to vancomycin toxicity New-onset acute toxic encephalopathy unclear etiology MS morphine withdraw not excluded A recent admission 01/08/2017 acute hypoxic respiratory failure suspect due to polysubstance drug overdose an anoxic brain injury could not be ruled out Transit episodes of altered mental status suspect due to toxic anoxic encephalopathy History of a prior CVA The above impression and plan of care have been discussed and directed by signing physician. Vero Hernandez nurse practitioner acting as scribe for signing physician. Plan - Discharge Summary New Discharge Prescriptions: New Morphine Sulfate ER [Ms Contin] 15 mg PO QAM #30 tab Sodium Bicarbonate Tab 650 mg PO BID #60 tab Folic Acid 0.5 mg PO DAILY@1200 tab Continue Oxybutynin Chloride [Ditropan] 5 mg PO TID Levothyroxine Sodium [Synthroid] 137 mcg PO DAILY Baclofen [Lioresal] 20 mg PO TID Pyridoxine [Vitamin B-6] 50 mg PO DAILY Cyanocobalamin (Vitamin B-12) [Vitamin B-12] 1,000 mcg PO DAILY Omeprazole 40 mg PO DAILY Discontinued Loratadine 10 mg PO DAILY Morphine Sulfate [Ms Contin] 15 mg PO HS Morphine Sulfate [Ms Contin] 30 mg PO QAM Naproxen 500 mg PO Q12H Folic Acid 0.4 mg PO DAILY Gabapentin 600 mg PO Q4H Choline Citrate 650mg 650 mg PO BID Nortriptyline [Pamelor] 100 mg PO HS HYDROcodone/IBUPROFEN [Xylon 10-200 mg Tablet] 0.5 tab PO BID Discharge Medication List Baclofen [Lioresal] 20 mg PO TID 01/08/17 [History] Cyanocobalamin (Vitamin B-12) [Vitamin B-12] 1,000 mcg PO DAILY 01/08/17 [ History] Levothyroxine Sodium [Synthroid] 137 mcg PO DAILY 01/08/17 [History] Omeprazole 40 mg PO DAILY 01/08/17 [History] Oxybutynin Chloride [Ditropan] 5 mg PO TID 01/08/17 [History] Pyridoxine [Vitamin B-6] 50 mg PO DAILY 01/08/17 [History] Folic Acid 0.5 mg PO DAILY@1200 tab 01/30/17 [Rx] Morphine Sulfate ER [Ms Contin] 15 mg PO QAM #30 tab 01/30/17 [Rx] Sodium Bicarbonate Tab 650 mg PO BID #60 tab 01/30/17 [Rx] Follow up Appointment(s)/Referral(s): Brian To MD [STAFF PHYSICIAN] - 2 Weeks ([facility]) Brendon Garcia MD [STAFF PHYSICIAN] - 1 Week Philip Andino MD [Primary Care Provider] - 1 Week Discharge Disposition: TRANSFER TO SNF/ECF
--- NOTE | 2017-01-31 09:15 | PN ---
DATE OF SERVICE: 01/30/2017 REASON FOR FOLLOW UP: MRSA bacteremia and aspiration pneumonia. INTERVAL HISTORY: The patient is afebrile. She is breathing comfortably. Denies significant chest pain, shortness of breath or cough. No abdominal pain , no vomiting or any diarrhea. On examination, blood pressure is 159/92 with a pulse of 78, temperature 97.7, she is 98% on room air. GENERAL DESCRIPTION: Middle-aged female up in the room in no distress. RESPIRATORY: Unlabored breathing. Clear to auscultation anteriorly. HEART: S1/S2 regular. ABDOMEN: Soft, no tenderness. LABS: BUN 20 with a creatinine of 3.30. DIAGNOSTIC IMPRESSION: Patient with methicillin-resistant Staphylococcus aureus bacteremia with repeat blood culture negative. Underlying infection has been adequately treated. Currently off the vancomycin because of early toxicity. Her level is therapeutic as of today and should be therapeutic next 48 hours. There is no need for any further antibiotic therapy. PICC line should be discontinued before discharge and no need for systemic antibiotic. MTDD
== END 2017-01-30 15:00 | disposition left against medical advice (07) | DRG 177 ==
LOC: MERGE 17:32 → 5MS5E 17:32 → EEVIPCON 17:32
PROVIDERS: ADMIT Family Medicine; ATTEND Family Medicine
PROC: 02HV33Z Insertion of Infusion Device into Superior Vena Cava, Percutaneous Approach (ICD-10-PCS; principal; 2017-01-23 10:30)
PROC: B548ZZA Ultrasonography of Superior Vena Cava, Guidance (ICD-10-PCS; 2017-01-23 10:30)
DX: J69.0 Pneumonitis due to inhalation of food and vomit (principal); G92 Toxic encephalopathy; G93.1 Anoxic brain damage, not elsewhere classified; N17.9 Acute kidney failure, unspecified; E87.2 Acidosis; B37.49 Other urogenital candidiasis; J98.11 Atelectasis; J15.212 Pneumonia due to Methicillin resistant Staphylococcus aureus; D64.9 Anemia, unspecified; E03.9 Hypothyroidism, unspecified; D75.89 Other specified diseases of blood and blood-forming organs; F41.9 Anxiety disorder, unspecified; G89.4 Chronic pain syndrome; I10 Essential (primary) hypertension; R26.9 Unspecified abnormalities of gait and mobility; T36.8X5A Adverse effect of other systemic antibiotics, initial encounter; Z86.14 Personal history of Methicillin resistant Staphylococcus aureus infection; Z86.73 Personal history of transient ischemic attack (TIA), and cerebral infarction without residual deficits; Z87.891 Personal history of nicotine dependence; Z98.1 Arthrodesis status; Z79.1 Long term (current) use of non-steroidal anti-inflammatories (NSAID); Z79.891 Long term (current) use of opiate analgesic; Z79.899 Other long term (current) drug therapy; Z91.5 Personal history of self-harm; Z88.6 Allergy status to analgesic agent; Z91.011 Allergy to milk products
CPT/HCPCS: 36569; 71020; 76937; 77001; 80048; 80053; 80202; 80306; 81001; 81003; 82140; 82728; 83540; 83550; 83605; 83735; 84100; 84132; 85025; 87040; 87086; 87324; 94640; 94760; 95816

== ENCOUNTER 2017-02-01 10:57 | Inpatient (IN) | payer MEDICARE, OTHER ==
[2017-02-01] MEDS ORDERED: SODIUM CHLORIDE 0.9% 1,000 ML IV STA ×2 (11:07→13:56)
--- NOTE | 2017-02-01 11:12 | ED ---
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 She hadn't for seizures tonic-clonic activity with dilated pupils last about 1-1/2 minutes each. She was given medazepam IM per paramedics. She was brought him constitution party 1. No reports of fevers chills nausea vomiting sweats trauma. Patient did have a nasal airway placed prior to arrival. MD Complaint: seizure - Related Data Home Medications Medication Instructions Recorded Confirmed Baclofen [Lioresal] 20 mg PO TID 02/01/17 02/01/17 Gabapentin 600 mg PO Q4HR 02/01/17 02/01/17 HYDROcodone/IBUPROFEN [Xylon 0.5 tab PO BID 02/01/17 02/01/17 10-200 mg Tablet] Levothyroxine Sodium [Tirosint] 137 mcg PO DAILY 02/01/17 02/01/17 Loratadine [Claritin] 10 mg PO DAILY 02/01/17 02/01/17 Morphine Sulfate ER [Ms Contin 30 mg PO DAILY 02/01/17 02/01/17 30Mg] Morphine Sulfate ER [Ms Contin] 15 mg PO HS 02/01/17 02/01/17 Naproxen [Naprosyn] 500 mg PO Q12H 02/01/17 02/01/17 Omeprazole [PriLOSEC] 40 mg PO DAILY 02/01/17 02/01/17 Allergies Allergy/AdvReac Type Severity Reaction Status Date / Time Unable to Assess Allergy Verified 02/01/17 11:01 Review of Systems ROS Statement: Those systems with pertinent positive or pertinent negative responses have been documented in the HPI. ROS Other: All systems not noted in ROS Statement are negative. Limitations: ROS unobtainable due to patients medical condition Past Medical History Past Medical History: No Reported History Additional Past Medical History / Comment(s): unable to obtain History of Any Multi-Drug Resistant Organisms: Unobtainable Past Surgical History: No Surgical Hx Reported Additional Past Surgical History / Comment(s): unable to obtain Past Psychological History: No Psychological Hx Reported Smoking Status: Unknown if ever smoked Past Alcohol Use History: Unable to Obtain Past Drug Use History: Unable to Obtain General Exam - General Exam Comments Initial Comments: This is a well-developed well-nourished unresponsive patient with sonorous respirations. Limitations: altered mental status, physical limitation General appearance: obtunded Head exam: Present: atraumatic, normocephalic, normal inspection Eye exam: Present: PERRL, EOMI, other (Pupils are mid range and responsive and reactive to light). Absent: scleral icterus, conjunctival injection, periorbital swelling ENT exam: Present: other (Nasal airway present the right naris oropharynx is clear at this time) Neck exam: Present: normal inspection. Absent: tenderness, meningismus, lymphadenopathy Respiratory exam: Present: decreased breath sounds, other (Sinus respirations but clear lung sounds) Cardiovascular Exam: Present: regular rate, normal rhythm, normal heart sounds. Absent: systolic murmur, diastolic murmur, rubs, gallop, clicks GI/Abdominal exam: Present: soft, normal bowel sounds. Absent: distended, tenderness, guarding, rebound, rigid Rectal exam: Present: deferred Extremities exam: Present: normal capillary refill, other (Old IV puncture sites noted there is an IV in the left proximal arm) Back exam: Present: normal inspection Neurological exam: Present: altered Psychiatric exam: Present: other (Unable to evaluate) Skin exam: Present: warm, dry, normal color Course Vital Signs 02/01/17 02/01/17 02/01/17 11:01 12:20 13:10 Temperature 96.9 F L Pulse Rate 84 96 101 H Respiratory 22 22 22 Rate Blood Pressure 164/97 235/107 171/97 O2 Sat by Pulse 100 96 100 Oximetry 02/01/17 02/01/17 13:30 14:03 Temperature 103 F H Pulse Rate 86 102 H Respiratory 16 20 Rate Blood Pressure 206/107 204/115 O2 Sat by Pulse 98 99 Oximetry - Reevaluation(s) Reevaluation #1: 02/01/17 11:33 Further information patient apparently left he has medical advice she was supposed to go to a nursing facility. And per report her mother she wanted a drug binge over the past weekend. Reevaluation #2: 02/01/17 11:36 Blood gas analysis shows a pH of 7.34 pCO2 of 43.3 pO2 of 160-99.4% saturation on FiO2 100. Reevaluation #3: She is noted to be posturing with a downward gaze. Also per direct conversation with her mother there was no drug exposure Reevaluation #4: 02/01/17 14:32 The patient stays do demonstrate evidence of posturing and seizure activity and will require intubation for airway protection. Procedures - Intubation Time Out Performed: Yes Paralytic: Succinylcholine Mg Given: 100 Laryngoscope: Guthrie Size: 3 ET Tube Size: 7.5 ET Tube Uncuffed: No Tube Secured Depth (cm): 22 Tube Secured Location: lips Patient Tolerated Procedure: well Intubation Complications: none (There was good color change on the colorimeter. The tube at 23 cm was just above the kristin was a strong 22. X-ray shows good positioning.) Medical Decision Making - Medical Decision Making I did discuss findings and she with patient's mother patient remained unresponsive and did have evidence of continued seizure activity. I did discuss the case with Dr. Andino as well as Dr. Rodriguez. Patient was intubated. Patient will be admitted to intensive care unit for treatment of status epilepticus. We also suspected aspiration pneumonia. - Lab Data Result diagrams: 02/01/17 12:05 02/01/17 12:05 Lab Results 02/01/17 02/01/17 02/01/17 Range/Units 11:10 11:45 12:05 WBC 16.2 H (3.8-10.6) k/uL RBC 4.06 (3.80-5.40) m/uL Hgb 12.3 (11.4-16.0) gm/dL Hct 37.8 (34.0-46.0) % MCV 93.2 (80.0-100.0) fL MCH 30.2 (25.0-35.0) pg MCHC 32.4 (31.0-37.0) g/dL RDW 15.8 H (11.5-15.5) % Plt Count 464 H (150-450) k/uL Neutrophils % 92 % Lymphocytes % 4 % Monocytes % 4 % Eosinophils % 0 % Basophils % 0 % Neutrophils # 14.9 H (1.3-7.7) k/uL Lymphocytes # 0.6 L (1.0-4.8) k/uL Monocytes # 0.6 (0-1.0) k/uL Eosinophils # 0.0 (0-0.7) k/uL Basophils # 0.1 (0-0.2) k/uL Hypochromasia Slight Sample Site lbrac ABG pH 7.34 L (7.35-7.45) ABG pCO2 43 (35-45) mmHg ABG pO2 162 H (83-108) mmHg ABG HCO3 23 (21-25) mmol/L ABG Total CO2 24 (19-24) mmol/L ABG O2 Saturation 99.0 H (94-97) % ABG Base Excess -2.1 mmol/L FiO2 100 % Sodium (137-145) mmol/L Potassium (3.5-5.1) mmol/L Chloride (98-107) mmol/L Carbon Dioxide (22-30) mmol/L Anion Gap mmol/L BUN (7-17) mg/dL Creatinine (0.52-1.04) mg/dL Est GFR (MDRD) Af Amer (>60 ml/min/1.73 sqM) Est GFR (MDRD) Non-Af (>60 ml/min/1.73 sqM) Glucose (74-99) mg/dL Calcium (8.4-10.2) mg/dL Magnesium (1.6-2.3) mg/dL Total Bilirubin (0.2-1.3) mg/dL AST (14-36) U/L ALT (9-52) U/L Alkaline Phosphatase (38-126) U/L Total Creatine Kinase (30-135) U/L CK-MB (CK-2) (0.0-2.4) ng/mL CK-MB (CK-2) Rel Index Troponin I (0.000-0.034) ng/mL Total Protein (6.3-8.2) g/dL Albumin (3.5-5.0) g/dL Urine Color Light Yellow Urine Appearance Clear (Clear) Urine pH 7.5 (5.0-8.0) Ur Specific [place] 1.005 (1.001-1.035) Urine Protein Trace H (Negative) Urine Glucose (UA) Negative (Negative) Urine Ketones Negative (Negative) Urine Blood Trace H (Negative) Urine Nitrite Negative (Negative) Urine Bilirubin Negative (Negative) Urine Urobilinogen <2.0 (<2.0) mg/dL Ur Leukocyte Esterase Trace H (Negative) Urine RBC 7 H (0-5) /hpf Urine WBC 7 H (0-5) /hpf Urine Bacteria Rare H (None) /hpf Hyaline Casts 1 (0-2) /lpf Salicylates mg/dL Urine Opiates Screen Detected H (NotDetected) Ur Oxycodone Screen Not Detected (NotDetected) Urine Methadone Screen Not Detected (NotDetected) Ur Propoxyphene Screen Not Detected (NotDetected) Acetaminophen ug/mL Ur Barbiturates Screen Not Detected (NotDetected) U Tricyclic Antidepress Not Detected (NotDetected) Ur Phencyclidine Scrn Not Detected (NotDetected) Ur Amphetamines Screen Not Detected (NotDetected) U Methamphetamines Scrn Not Detected (NotDetected) U Benzodiazepines Scrn Not Detected (NotDetected) Urine Cocaine Screen Not Detected (NotDetected) U Marijuana (THC) Screen Not Detected (NotDetected) Serum Alcohol mg/dL 02/01/17 02/01/17 Range/Units 12:05 12:05 WBC (3.8-10.6) k/uL RBC (3.80-5.40) m/uL Hgb (11.4-16.0) gm/dL Hct (34.0-46.0) % MCV (80.0-100.0) fL MCH (25.0-35.0) pg MCHC (31.0-37.0) g/dL RDW (11.5-15.5) % Plt Count (150-450) k/uL Neutrophils % % Lymphocytes % % Monocytes % % Eosinophils % % Basophils % % Neutrophils # (1.3-7.7) k/uL Lymphocytes # (1.0-4.8) k/uL Monocytes # (0-1.0) k/uL Eosinophils # (0-0.7) k/uL Basophils # (0-0.2) k/uL Hypochromasia Sample Site ABG pH (7.35-7.45) ABG pCO2 (35-45) mmHg ABG pO2 (83-108) mmHg ABG HCO3 (21-25) mmol/L ABG Total CO2 (19-24) mmol/L ABG O2 Saturation (94-97) % ABG Base Excess mmol/L FiO2 % Sodium 142 (137-145) mmol/L Potassium 4.1 (3.5-5.1) mmol/L Chloride 102 (98-107) mmol/L Carbon Dioxide 23 (22-30) mmol/L Anion Gap 17 mmol/L BUN 21 H (7-17) mg/dL Creatinine 2.54 H (0.52-1.04) mg/dL Est GFR (MDRD) Af Amer 24 (>60 ml/min/1.73 sqM) Est GFR (MDRD) Non-Af 20 (>60 ml/min/1.73 sqM) Glucose 131 H (74-99) mg/dL Calcium 9.2 (8.4-10.2) mg/dL Magnesium 1.5 L (1.6-2.3) mg/dL Total Bilirubin 0.7 (0.2-1.3) mg/dL AST 19 (14-36) U/L ALT 35 (9-52) U/L Alkaline Phosphatase 110 (38-126) U/L Total Creatine Kinase 132 (30-135) U/L CK-MB (CK-2) 3.4 H* (0.0-2.4) ng/mL CK-MB (CK-2) Rel Index 2.6 Troponin I <0.012 (0.000-0.034) ng/mL Total Protein 7.7 (6.3-8.2) g/dL Albumin 4.2 (3.5-5.0) g/dL Urine Color Urine Appearance (Clear) Urine pH (5.0-8.0) Ur Specific [place] (1.001-1.035) Urine Protein (Negative) Urine Glucose (UA) (Negative) Urine Ketones (Negative) Urine Blood (Negative) Urine Nitrite (Negative) Urine Bilirubin (Negative) Urine Urobilinogen (<2.0) mg/dL Ur Leukocyte Esterase (Negative) Urine RBC (0-5) /hpf Urine WBC (0-5) /hpf Urine Bacteria (None) /hpf Hyaline Casts (0-2) /lpf Salicylates <1.0 mg/dL Urine Opiates Screen (NotDetected) Ur Oxycodone Screen (NotDetected) Urine Methadone Screen (NotDetected) Ur Propoxyphene Screen (NotDetected) Acetaminophen <10.0 ug/mL Ur Barbiturates Screen (NotDetected) U Tricyclic Antidepress (NotDetected) Ur Phencyclidine Scrn (NotDetected) Ur Amphetamines Screen (NotDetected) U Methamphetamines Scrn (NotDetected) U Benzodiazepines Scrn (NotDetected) Urine Cocaine Screen (NotDetected) U Marijuana (THC) Screen (NotDetected) Serum Alcohol <10 mg/dL - EKG Data -: EKG Interpreted by Me EKG shows normal: sinus rhythm (Sinus rhythm with a rate 93 appear 142 QRS 94 QT since QTC of 390/[address] configuration and prolonged QT interval seen.) - Radiology Data Radiology results: report reviewed (I did review the imaging and reports CAT scan shows no acute findings x-ray shows evidence of a right upper lobe infiltrate.), image reviewed Critical Care Time Critical Care Time: Yes Critical Care Time: 47 minutes of critical care time which includes initial monitoring the EMS run and discussed with paramedics history physical labs x-rays of multiple reevaluation the patient charting. Discussion with the patient's mother. This does not include the intubation time. This does include discussion with the physicians mentioned above. Dr. To did return a page I was in the process of intubation and did not discuss the case with him yet. Disposition Clinical Impression: Intractable seizure disorder, Febrile illness, acute, Aspiration pneumonia Disposition: ADMITTED IP TO THIS [facility] Condition: Serious Referrals: Philip Andino MD [Primary Care Provider] - 1-2 days Decision Time: 13:00
[2017-02-01 11:59] LABS: Appearance,Urine Clear (Clear); Bacteria,Urine Rare /hpf; Bilirubin,Urine Negative (Negative); Glucose,Urine (UA) Negative (Negative); Ketones,Urine Negative (Negative); Leukocyte Esterase,Urine Trace (Negative); Nitrite,Urine Negative (Negative); PH, Urine 7.5 (5.0-8.0); Particle Count 975; Protein,Urine Trace (Negative); RBC,Urine 7 /hpf (0-5); Specific Gravity,Urine 1.005 (1.001-1.035); UA Billing (MACRO vs. MICRO) MICRO; Urobilinogen,Urine <2.0 mg/dL (<2.0); WBC,Urine 7 /hpf (0-5)
--- NOTE | 2017-02-01 12:03 | CT ---
EXAMINATION TYPE: CT brain wo con DATE OF EXAM: 02/01/2017 COMPARISON: 01/15/2017 HISTORY: 46-year-old female with seizure activity TECHNIQUE: Examination was done in axial plane without intravenous contrast. Coronal and sagittal r econstructions performed. CT DLP: 978.20 mGycm Automated exposure control for dose reduction was used. FINDINGS: There is no evidence of acute intracranial hemorrhage, acute ischemic changes, mass, mass-effect, or extra-axial fluid collection. There is no effacement of cerebral sulci or basal subarachnoid cister ns. There is no hydrocephalus. There is no midline shift. Dejesus-white matter distinction is preserv ed. Some vague hypodensity in the posterior right temporal region, axial image 21. There is mild focal left posterior scalp thickening that could represent a contusion if there was an injury. Paranasal sinuses and mastoid air cells well pneumatized. Orbits and globes are intact. No calvarial fracture. IMPRESSION: 1. Possible left posterior scalp contusion. Clinically correlate. 2. Some vague hypodensity in the posterior right temporal lobe. Contrast enhanced MRI can further kameron luate. Underlying nonspecific white matter disease or small focus of vasogenic edema are possible. 3. No acute intracranial hemorrhage or midline shift.
[2017-02-01 12:20] LABS: Basophils # (A) 0.1 k/uL (0-0.2); Basophils % (A) 0 %; CHCM 32.3; Eosinophils % (A) 0 %; HCT 37.8 % (34.0-46.0); HDW 3.24; HGB 12.3 gm/dL (11.4-16.0); Hypochromasia Slight; Luc % (Auto) 1; Lymphocytes # (A) 0.6 k/uL (1.0-4.8); Lymphocytes % (A) 4 %; MCH 30.2 pg (25.0-35.0); MCHC 32.4 g/dL (31.0-37.0); MCV 93.2 fL (80.0-100.0); Mean Platelet Volume 7.1; Monocytes # (A) 0.6 k/uL (0-1.0); Monocytes % (A) 4 %; Neutrophils # (A) 14.9 k/uL (1.3-7.7); Neutrophils % (A) 92 %; RBC 4.06 m/uL (3.80-5.40); RDW 15.8 % (11.5-15.5); WBC 16.2 k/uL (3.8-10.6); WBC (Perox) 16.25
[2017-02-01] MEDS ORDERED: LORazepam 2 MG/ML SYRINGE IV STA ×2 (12:20→13:52)
[2017-02-01] MEDS ORDERED: levETIRAcetam IV 500 MG in SODIUM CHLORIDE 0.9% 100 ML IVPB STA ×2 (12:25→14:44)
[2017-02-01 12:27] LABS: ABG Base Excess -2.1 mmol/L; ABG HCO3 23 mmol/L (21-25); ABG PCO2 43 mmHg (35-45); ABG PH 7.34 (7.35-7.45); ABG PO2 162 mmHg (83-108); ABG TCO2 24 mmol/L (19-24)
[2017-02-01 12:28] LABS: ALT 35 U/L (9-52); AST 19 U/L (14-36); Acetaminophen <10.0 ug/mL; Alcohol <10 mg/dL; Alkaline Phosphatase 110 U/L (38-126); Anion Gap 17 mmol/L; Blood Urea Nitrogen 21 mg/dL (7-17); Calcium 9.2 mg/dL (8.4-10.2); Carbon Dioxide 23 mmol/L (22-30); Chloride 102 mmol/L (98-107); Glucose 131 mg/dL (74-99); Magnesium 1.5 mg/dL (1.6-2.3); Non-African American GFR(MDRD) 20 (>60 ml/min/1.73 sqM); Potassium 4.1 mmol/L (3.5-5.1); Salicylate <1.0 mg/dL; Sodium 142 mmol/L (137-145); Total Bilirubin 0.7 mg/dL (0.2-1.3); Total Protein 7.7 g/dL (6.3-8.2)
[2017-02-01 12:39] LABS: Creatine Kinase 132 U/L (30-135)
[2017-02-01 12:53] LABS: Troponin I <0.012 ng/mL (0.000-0.034)
[2017-02-01 12:57] LABS: Creatine Kinase MB 3.4 ng/mL (0.0-2.4)
[2017-02-01] MEDS ORDERED: MAGNESIUM SULFATE-D5W PMX 1 GM in DEXTROSE/WATER 1 100ML.BAG IVPB ONE (13:56)
[2017-02-01] MEDS ORDERED: SUCCINYLCHOLINE CHLORIDE VIAL 200 MG/10 ML VIAL IV STA (14:12)
[2017-02-01] MEDS ORDERED: PROPOFOL 1,000 MG/100 ML VIAL IV ONE (14:13)
[2017-02-01] MEDS ORDERED: PIPERACILLIN-TAZOBACTAM 3.375 GM in DEXTROSE/WATER 1 50ML.BAG IVPB STA (14:14)
--- NOTE | 2017-02-01 14:23 | XR ---
EXAMINATION TYPE: XR chest 1V portable DATE OF EXAM: 02/01/2017 COMPARISON: January 22, 2017 HISTORY: Unresponsive after multiple seizures. TECHNIQUE: Single frontal view of the chest is obtained. FINDINGS: Bibasilar opacities could be atelectasis versus pneumonia. There is felt to be at least a small right-sided pleural effusion. Fluid is noted in the minor fissure. There is no pneumothorax. Pr eviously placed central venous catheter is no longer identified. IMPRESSION: Bibasilar atelectasis versus developing airspace disease. There is also at least a small right-sided pleural effusion.
--- NOTE | 2017-02-01 14:31 | CT ---
EXAMINATION TYPE: CT cervical spine wo con DATE OF EXAM: 02/01/2017 COMPARISON: NONE HISTORY: Seizure. Pain CT DLP: 340.60 mGycm Automated exposure control for dose reduction was used. TECHNIQUE: CT scan of the cervical spine is obtained without contrast, axial images are obtained, sa gittal and coronal reformatted images are also reviewed. FINDINGS: This examination is suboptimal due to motion artifact. Cervical spine is visualized in its entirety from C1 through upper thoracic levels, demonstrates satisfactory alignment without evidence of acute fracture or dislocation. There is cortical irregularity on the sagittal images along the pos terior aspect of the vertebral body of C5 which is felt to be due to artifact. Prevertebral soft tiss ue appears within normal limits. The C1-C2 articulation is within normal limits on the coronal image s. Fusion hardware is noted at the level of C5-6 with anterior plate and screw placement. A nasal tu be is also noted. IMPRESSION: There is no acute fracture or dislocation evident in the cervical spine.
[2017-02-01] MEDS ORDERED: ACETAMINOPHEN IV (For NPO) 1,000 MG in SALINE 1 100ML.BAG IVPB ONE (14:38)
[2017-02-01] MEDS ORDERED: NALOXONE 0.4 MG/ML 1 ML VIAL IV PRN (14:38)
--- NOTE | 2017-02-01 14:44 | XR ---
EXAMINATION TYPE: XR chest 1V portable DATE OF EXAM: 02/01/2017 COMPARISON: February 01, 2017. HISTORY: Endotracheal tube placement. TECHNIQUE: Single frontal view of the chest is obtained. FINDINGS: There is increase in opacity in both lungs which could be due to atelectasis or pneumonia, patient also has taken less of the breast on the current examination. There is an endotracheal tube noted between the clavicles and kristin. Cervical fusion hardware is again noted. IMPRESSION: Endotracheal tube between the clavicles and kristin.
[2017-02-01] MEDS ORDERED: LORazepam 2 MG/ML SYRINGE IV PRN (14:57)
--- NOTE | 2017-02-01 15:20 | P.CNPUL ---
History of Present Illness Consult date: 02/01/17 Chief complaint: Status epilepticus History of present illness: This is a 38-year-old female patient who presented emergency department with status epilepticus. According to the family the patient was having on and off seizures since yesterday evening and these were generalized tonic-clonic seizures. The patient was at home and EMS was called this afternoon and they found the patient having seizures. The patient was given IM Midazolam and following that she was brought into the burst department. Here in the emergency , the patient started having generalized tonic clonic seizures. Later stage, the patient was found also to be going into posturing episodes. Based on that, the patient was intubated and placed on a mechanical ventilator. The patient was started on Diprivan and currently Diprivan is running at 50 mics. The patient also received IV Ativan here in the emergency department to abort her seizures and this was not successful as the patient was having some breakthrough episodes. At that point she was given IV Keppra and she was intubated and placed on a mechanical ventilator and Diprivan drip was initiated. I saw the patient emergency department she was kept quite comfortable without any seizure activity or tonic posturing. I reviewed the chest x-ray post intubation there is development of perihilar bilateral pulmonary infiltrates, probably due to aspiration. She has scattered rhonchi throughout the lung richard. Her urine drug screen was positive for opiates. Her CAT scan of the brain did not show any acute abnormalities. There is questionable possible left posterior scalp contusion and some vague hypodensity in the posterior right temporal lobe underlying nonspecific white matter disease or a small focus of vasogenic edema was not completely excluded. No evidence of any intracranial hemorrhage or midline shift. Cervical spine CAT scan did not show any acute fractures. He is febrile with a temperature of 103 axillary. Her initial blood pressure was 206/107 and following intubation and Diprivan it dropped to 180/90. A Yuan catheter was inserted. Intubation blood gas showed a pH of 7.34 with a pCO2 of 43 and pO2 1 6100% nonrebreather facemask. Her creatinine was at 2.5. Alcohol was negative. Salicylate was negative. Patient is known to Dr. Radha maradiaga recovering. The patient came into the hospital approximately 3 weeks ago and specifically the patient was admitted on live with drug overdose. Shepresented to the emergency room on January 08 after patient was treated for polysubstance drug over dose necessitating intubation and vent support for acute hypoxic respiratory failure. Patient was admitted to the intensive care unit monitored closely patient was able to be extubated and transferred from the ICU to a stepdown unit with the family questing patient under hospice care. Hospice care was initiated patient made a significant clinical improvement the family wanted hospice care stopped and medical care resumed. The patient's urine drug screen was positive on January 08 for opiates, dicyclomine antidepressants, cocaine and marijuana. Patient remained on mechanical ventilation for several days and had a neurological eval done. It was felt that the patient had suffered an anoxic brain injury after to brain scans and 3 EEGs. Patient was not showing any significant neurological improvement or advancement. The patient's power of make up man Natalya was updated daily on the patient's condition. was requesting that the patient be made comfort care with hospice. This was initiated within 48 hours patient made a significant improvement clinically the patient was taken off of the hospice care discharged from hospice and admitted on January 20 to medical's service. Patient was seen throughout the hospitalization with physical occupational therapy. Psych eval was also requested for episodes of confusion. ecommendations were patient needed outpatient counseling. Patient reportedly boyfriend recently . Psych service indicated that there would be no need to continue any medication. Patient was trialed on respiratory 0.25 at bedtime all in the hospital but this did not need to be continued in the outpatient setting were no further psych recommendations. As mentioned patient stated [facility] it would certainly return there should she have any difficulties coping with loss of her boyfriend. The creatinine on the day of discharge was 3.3. Nephrology indicate the patient was appropriate to be transferred just continue with sodium bicarb tablets as ordered patient was also felt to be stable from a neurological standpoint and was ready to be transferred to subacute rehab. An EEG was performed showed mild encephalopathy. That the patient was also found to have MRSA bacteremia for which she was treated with vancomycin and she completed her treatment and no further antibiotics was given at time of discharge. Her urine was positive for Micki glabrata breath and had sputum was positive for Micki albicans. Creatinine at time of discharge was 3.3. All antiepileptic medication was given. Her discharge medication included bicarb tablets, morphine sulfate 50 mg by mouth twice a day, vitamin B6, folic acid, the troponin, all a result, levothyroxin, vitamin B12 and baclofen Review of Systems ROS unobtainable: due to endotracheal tube Past Medical History Past Medical History: No Reported History Additional Past Medical History / Comment(s): Polysubstance abuse, recent admission on 01/08/2017 with acute hypoxic respiratory failure due to polysubstance abuse, MRSA bacteremia, acute kidney failure suspected to be vancomycin toxicity, CVA, hypothyroidism, chronic pain History of Any Multi-Drug Resistant Organisms: Unobtainable Past Surgical History: No Surgical Hx Reported Additional Past Surgical History / Comment(s): Tubal ligation, appendectomy, neck fusion involving the cervical spine Past Psychological History: No Psychological Hx Reported Smoking Status: Unknown if ever smoked Past Alcohol Use History: Unable to Obtain Past Drug Use History: Unable to Obtain Medications and Allergies Home Medications Medication Instructions Recorded Confirmed Type Baclofen [Lioresal] 20 mg PO TID 02/01/17 02/01/17 History Gabapentin 600 mg PO Q4HR 02/01/17 02/01/17 History HYDROcodone/IBUPROFEN [Xylon 0.5 tab PO BID 02/01/17 02/01/17 History 10-200 mg Tablet] Levothyroxine Sodium [Tirosint] 137 mcg PO DAILY 02/01/17 02/01/17 History Loratadine [Claritin] 10 mg PO DAILY 02/01/17 02/01/17 History Morphine Sulfate ER [Ms Contin 30 mg PO DAILY 02/01/17 02/01/17 History 30Mg] Morphine Sulfate ER [Ms Contin] 15 mg PO HS 02/01/17 02/01/17 History Naproxen [Naprosyn] 500 mg PO Q12H 02/01/17 02/01/17 History Omeprazole [PriLOSEC] 40 mg PO DAILY 02/01/17 02/01/17 History Allergies Allergy/AdvReac Type Severity Reaction Status Date / Time Unable to Assess Allergy Verified 02/01/17 11:01 Physical Exam Vitals: Vital Signs Temp Pulse Resp BP Pulse Ox 02/01/17 14:03 103 F H 102 H 20 204/115 99 02/01/17 13:30 86 16 206/107 98 02/01/17 13:10 101 H 22 171/97 100 02/01/17 12:20 96 22 235/107 96 02/01/17 11:01 96.9 F L 84 22 164/97 100 Intake and Output 02/01/17 02/01/17 02/01/17 06:59 14:59 22:59 Intake Total 0.805 Balance 0.805 Intake: Intake, IV Titration 0.805 Amount Propofol 1,000 mg In 100 0.805 ml @ Titrate IV .Q0M ONE Rx#:[id number] Other: Weight 75 kg Patient Weight 02/02/17 06:59 Weight 75 kg Patient is currently intubated on the mechanical ventilator. She is sedated with Diprivan. No seizure activity has been noted. No routine.Head exam was generally normal. There was no scleral icterus or corneal arcus. Mucous membranes were moist. Neck is supple and the patient is orogastric and orotracheal tube are both of them are in place. No goiter or neck masses. Lungs sounds are revealing scattered rhonchi heard throughout the lung richard bilaterally. Scattered expiratory wheezes. Breath sounds are equal and bilateral.Cardiac exam revealed the PMI to be normally situated and sized. The rhythm was regular and no extrasystoles were noted during several minutes of auscultation. The first and second heart sounds were normal and physiologic splitting of the second heart sound was noted. There were no murmurs, rubs, clicks, or gallops.Abdominal exam revealed normal bowel sounds. The abdomen was soft, non-tender, and without masses, organomegaly, or appreciable enlargement of the abdominal aorta.Examination of the extremities revealed easily palpable radial, femoral and pedal pulses. There was no cyanosis, clubbing or edema. Neurologically the patient has 3 mm pupils which is equal and symmetrical bilaterally. No nystagmus. This the motor function cannot be assessed as the patient is currently sedated with Diprivan. No obvious seizure activity. DTRs are +1 no Babinski. No clonus. Results - Laboratory Findings CBC and BMP: 02/01/17 12:05 02/01/17 12:05 ABG ABG pH 7.34 (7.35-7.45) L 02/01/17 11:10 ABG pCO2 43 mmHg (35-45) 02/01/17 11:10 ABG pO2 162 mmHg (83-108) H 02/01/17 11:10 ABG O2 Saturation 99.0 % (94-97) H 02/01/17 11:10 Abnormal lab findings: Abnormal Labs 02/01/17 02/01/17 02/01/17 11:10 11:45 12:05 WBC 16.2 H RDW 15.8 H Plt Count 464 H Neutrophils # 14.9 H Lymphocytes # 0.6 L ABG pH 7.34 L ABG pO2 162 H ABG O2 Saturation 99.0 H BUN Creatinine Glucose Magnesium CK-MB (CK-2) Urine Protein Trace H Urine Blood Trace H Ur Leukocyte Esterase Trace H Urine RBC 7 H Urine WBC 7 H Urine Bacteria Rare H Urine Opiates Screen Detected H 02/01/17 02/01/17 12:05 12:05 WBC RDW Plt Count Neutrophils # Lymphocytes # ABG pH ABG pO2 ABG O2 Saturation BUN 21 H Creatinine 2.54 H Glucose 131 H Magnesium 1.5 L CK-MB (CK-2) 3.4 H* Urine Protein Urine Blood Ur Leukocyte Esterase Urine RBC Urine WBC Urine Bacteria Urine Opiates Screen - Diagnostic Findings Chest x-ray: image reviewed Assessment and Plan Plan: Assessment 1 status epilepticus, patient started having generalized tonic-clonic seizures as of yesterday. The exact duration and the frequency of the seizures is not known. The patient came in in a postictal state. Further tonic clonic seizures were noted. She also was noted to have posturing at one point by the emergency physician. CAT scan of the brain was noted. The patient was initially given Ativan and then And subsequently she was intubated and placed on a mechanical ventilator where she was started also on Diprivan drip. Currently she has no active or obvious seizures at least on clinical grounds. 2 acute respiratory failure secondary to above 3 acute bilateral pulmonary infiltrates, perihilar. Rule out early acute lung injury versus aspiration 4 acute febrile illness, cultures in progress,, multiple sources of fever including possible ongoing urine checked infection versus sepsis versus pneumonia versus seizures. Meningitis is felt to be less likely. No neck stiffness. Neurology is to follow. 5 acute kidney injury. The patient developed a vancomycin-induced acute kidney injury at time of admission approximately 3 weeks ago and creatinine overall seems to be improving knowing that her current creatinine is less then the one that she had a time of discharge. Nephrology should be on the case. 6 polysubstance abuse, history of 7 recent history of drug overdose 8 recent history of metabolic encephalopathy and possible hypoxic encephalopathy post drug overdose 9 MRSA bacteremia, treated with vancomycin 10 candiduria in the urine, Mciki glabrata, probably a colonizer 11 CVA, history of 12 hypothyroidism 13 chronic pain maintained on morphine an outpatient basis in conjunction with baclofen and gabapentin Plan Continue vent support. Obtain blood gases. We'll do this is a vent changes based on the blood gases. Chest x-ray was noted. She was in good location. Start the patient IV Zosyn. Sputum Gram stain and culture. Blood cultures. Urine cultures. UAand culture. Stat EEG and neurology consultation. Continue IV Keppra. EEG will be needed to make sure the patient is not having any ongoing seizure activity. CAT scan of the brain was noted. Monitor fever pattern. Nephrology consultation regarding the renal failure. Triple-lumen catheter was inserted. We'll start the patient on DuoNeb and right seems around -the-clock. Change Synthroid to IV. IV Protonix. Subcu heparin for DVT prophylaxis. We'll move the patient to the intensive care unit.
[2017-02-01 15:25] LABS: ABG Base Excess -2.6 mmol/L; ABG HCO3 21 mmol/L (21-25); ABG PCO2 29 mmHg (35-45); ABG PH 7.46 (7.35-7.45); ABG PO2 271 mmHg (83-108); ABG TCO2 22 mmol/L (19-24)
[2017-02-01] MEDS: IPRATROPIUM-ALBUTEROL 3 ML NEB INHALATION SCH ×2 (16:00→19:46)
[2017-02-01 16:28] LABS: Glucose,Whole Blood 108 mg/dL (75-99)
[2017-02-01] MEDS: GABAPENTIN 300 MG CAP PO SCH ×3 (16:34→23:19)
[2017-02-01] MEDS: SODIUM CHLORIDE 0.9% 1,000 ML IV SCH ×2 (16:34→20:40)
--- NOTE | 2017-02-01 18:03 | P.CNNES ---
History of Present Illness Consult date: 02/01/17 Requesting physician: Philip Andino Reason for Consult: Status epilepticus History of Present Illness: Patient is a 38-year-old female who is being evaluated by the neurology service per the request of Dr. Andino on 02/01/2017 for status epilepticus. Currently patient is on the ventilator and sedated in the ICU. Information was gleaned from the staff and chart. No family is at the bedside. Reportedly, patient was having seizures on and off yesterday and seizures were described as generalized tonic-clonic seizures. EMS was called and EMS noted the patient to be having seizures. Once in the emergency room, patient was witnessed to have generalized tonic-clonic seizures as well. Patient was found to have posturing episodes as well. Patient was intubated and started on a different brand drip. Patient was given IV Keppra and continued on to prevent. Computed tomography scan of the brain was done which showed possible left posterior scalp contusion. CT also reveals vague hypodensity in the posterior right temporal lobe. Underlying nonspecific white matter disease or small focus of vasogenic edema are possible. There is no acute intracranial hemorrhage or midline shift. Patient also had a cervical spine CAT scan which did not show any acute fractures. Upon admission to [facility] , patient was febrile and had initial blood pressure of 206/107. At the time of my evaluation, patient is sedated and intubated in the intensive care unit. Review of Systems REVIEW OF SYSTEMS: Otherwise unremarkable and noncontributory. Past Medical History Past Medical History: No Reported History Additional Past Medical History / Comment(s): Polysubstance abuse, recent admission on 01/08/2017 with acute hypoxic respiratory failure due to polysubstance abuse, MRSA bacteremia, acute kidney failure suspected to be vancomycin toxicity, CVA, hypothyroidism, chronic pain History of Any Multi-Drug Resistant Organisms: Unobtainable Past Surgical History: No Surgical Hx Reported Additional Past Surgical History / Comment(s): Tubal ligation, appendectomy, neck fusion involving the cervical spine Past Psychological History: No Psychological Hx Reported Smoking Status: Unknown if ever smoked Past Alcohol Use History: Unable to Obtain Past Drug Use History: Unable to Obtain Medications and Allergies Home Medications Medication Instructions Recorded Confirmed Type Baclofen [Lioresal] 20 mg PO TID 02/01/17 02/01/17 History Gabapentin 600 mg PO Q4HR 02/01/17 02/01/17 History HYDROcodone/IBUPROFEN [Xylon 0.5 tab PO BID 02/01/17 02/01/17 History 10-200 mg Tablet] Levothyroxine Sodium [Tirosint] 137 mcg PO DAILY 02/01/17 02/01/17 History Loratadine [Claritin] 10 mg PO DAILY 02/01/17 02/01/17 History Morphine Sulfate ER [Ms Contin 30 mg PO DAILY 02/01/17 02/01/17 History 30Mg] Morphine Sulfate ER [Ms Contin] 15 mg PO HS 02/01/17 02/01/17 History Naproxen [Naprosyn] 500 mg PO Q12H 02/01/17 02/01/17 History Omeprazole [PriLOSEC] 40 mg PO DAILY 02/01/17 02/01/17 History Allergies Allergy/AdvReac Type Severity Reaction Status Date / Time aspirin Allergy Rash/Hives Verified 02/01/17 15:35 Physical Examination - Vital Signs Vital Signs: Vital Signs Temp Pulse Resp BP Pulse Ox 02/01/17 16:09 100 152/80 100 02/01/17 15:51 98 18 173/90 100 02/01/17 15:20 110 H 18 178/90 100 02/01/17 15:00 96 165/88 100 02/01/17 14:20 110 H 211/116 97 02/01/17 14:03 103 F H 102 H 20 204/115 99 02/01/17 13:30 86 16 206/107 98 02/01/17 13:10 101 H 22 171/97 100 02/01/17 12:20 96 22 235/107 96 02/01/17 11:15 22 02/01/17 11:01 96.9 F L 84 22 164/97 100 Intake and Output 02/01/17 02/01/17 02/01/17 06:59 14:59 22:59 Intake Total 0.805 Output Total 1500 Balance 0.805 -1500 Intake: Intake, IV Titration 0.805 Amount Propofol 1,000 mg In 100 0.805 ml @ Titrate IV .Q0M ONE Rx#:[id number] Output: Urine 1500 Other: Weight 75 kg Patient Weight 02/02/17 06:59 Weight 75 kg PHYSICAL EXAM: GENERAL APPEARANCE: Patient is a well-developed, female who is intubated and sedated in the intensive care unit. HEENT: Normocephalic, atraumatic, no facial asymmetry is seen. Neck is supple with no masses felt. CARDIOVASCULAR: Regular rate and rhythm. ABDOMEN: Nontender, nondistended. EXTREMITIES: Show no edema or clubbing. NEUROLOGICAL EXAM: A meaningful neurological exam could not be performed due to sedation of the patient. Results - Laboratory Findings CBC and BMP: 02/01/17 12:05 02/01/17 12:05 Abnormal Lab Findings: Abnormal Labs 02/01/17 02/01/17 02/01/17 11:10 11:45 12:05 WBC 16.2 H RDW 15.8 H Plt Count 464 H Neutrophils # 14.9 H Lymphocytes # 0.6 L ABG pH 7.34 L ABG pCO2 ABG pO2 162 H ABG O2 Saturation 99.0 H BUN Creatinine Glucose POC Glucose (mg/dL) Magnesium CK-MB (CK-2) Urine Protein Trace H Urine Blood Trace H Ur Leukocyte Esterase Trace H Urine RBC 7 H Urine WBC 7 H Urine Bacteria Rare H Urine Opiates Screen Detected H 02/01/17 02/01/17 02/01/17 12:05 12:05 15:14 WBC RDW Plt Count Neutrophils # Lymphocytes # ABG pH 7.46 H ABG pCO2 29 L ABG pO2 271 H ABG O2 Saturation 100.0 H BUN 21 H Creatinine 2.54 H Glucose 131 H POC Glucose (mg/dL) Magnesium 1.5 L CK-MB (CK-2) 3.4 H* Urine Protein Urine Blood Ur Leukocyte Esterase Urine RBC Urine WBC Urine Bacteria Urine Opiates Screen 02/01/17 16:27 WBC RDW Plt Count Neutrophils # Lymphocytes # ABG pH ABG pCO2 ABG pO2 ABG O2 Saturation BUN Creatinine Glucose POC Glucose (mg/dL) 108 H Magnesium CK-MB (CK-2) Urine Protein Urine Blood Ur Leukocyte Esterase Urine RBC Urine WBC Urine Bacteria Urine Opiates Screen Assessment and Plan Plan: Impression: 1. Status epilepticus, tonic-clonic seizure type 2. Acute respiratory failure 3. Recent history of drug overdose, polysubstance abuse 4. Acute kidney insufficiency 5. Fever Recommendation: It appears the patient was experiencing multiple seizures. Exact history of the description and duration of these seizures is unavailable. Currently she has no active seizure activity. I recommend continuing Keppra 1000 mg IV every 12 hours. I recommend an EEG to be done when possible. Continue ICU support. Continue investigation of fever. Continue seizure precautions. Continue neurological checks as appropriate. I will continue to follow with you. Further recommendations to follow. Thank you for allowing me to participate in the care of your patient. Feel free to call with any questions or concerns. I performed an examination of the patient and discussed the management with the PRESTIDIGITATOR. I have reviewed the PRESTIDIGITATOR notes and agree with the findings and plan of care.
[2017-02-01] MEDS ORDERED: ACETAMINOPHEN IV (For NPO) 1,000 MG in EMPTY BAG 1 BAG IVPB PRN (18:30)
[2017-02-01] MEDS: PROPOFOL 1,000 MG/100 ML VIAL IV SCH ×2 (19:00→23:12)
[2017-02-01] MEDS: levETIRAcetam IV 1,000 MG in SALINE 1 100ML.BAG IVPB SCH (20:28)
[2017-02-01] MEDS: CHLORHEXIDINE GLUCONATE 15 ML CUP MUCOUS MEM SCH (20:28)
[2017-02-02] MEDS: PROPOFOL 1,000 MG/100 ML VIAL IV SCH ×3 (03:24→20:46)
[2017-02-02] MEDS: GABAPENTIN 300 MG CAP PO SCH ×5 (04:17→20:36)
[2017-02-02] MEDS: LEVOTHYROXINE 137 MCG TAB PO SCH (04:24)
[2017-02-02 04:52] LABS: Basophils % (A) 0 %; CH 30.6; CHCM 33.8; Eosinophils # (A) 0.1 k/uL (0-0.7); Eosinophils % (A) 1 %; HCT 25.6 % (34.0-46.0); Luc # (Auto) 0.23; Luc % (Auto) 2; Lymphocytes # (A) 2.2 k/uL (1.0-4.8); Lymphocytes % (A) 23 %; MCH 29.1 pg (25.0-35.0); MCHC 31.9 g/dL (31.0-37.0); Mean Platelet Volume 7.4; Monocytes # (A) 0.9 k/uL (0-1.0); Monocytes % (A) 9 %; Neutrophils # (A) 6.1 k/uL (1.3-7.7); Neutrophils % (A) 64 %; RBC 2.81 m/uL (3.80-5.40); RDW 15.9 % (11.5-15.5); WBC 9.5 k/uL (3.8-10.6); WBC (Perox) 9.44
[2017-02-02 05:02] LABS: HGB 8.2 gm/dL (11.4-16.0)
[2017-02-02 05:09] LABS: Calcium 7.7 mg/dL (8.4-10.2); Magnesium 1.7 mg/dL (1.6-2.3); Phosphorous 4.7 mg/dL (2.5-4.5)
[2017-02-02] MEDS ORDERED: Magnesium Replacement Protocol 1 EACH MISC MISCELLANE PRN (05:28)
[2017-02-02 06:21] LABS: ABG PH 7.44 (7.35-7.45)
[2017-02-02 06:22] LABS: ABG Base Excess -0.7 mmol/L; ABG HCO3 23 mmol/L (21-25); ABG Oxygen Saturation 99.7 % (94-97); ABG PCO2 34 mmHg (35-45); ABG PO2 183 mmHg (83-108); ABG TCO2 24 mmol/L (19-24)
[2017-02-02] MEDS: POTASSIUM CHLORIDE 20 MEQ in WATER FOR INJECTION 1 100ML.BAG IVPB SCH ×3 (06:47→11:19)
[2017-02-02] MEDS: MAGNESIUM SULFATE-D5W PMX 1 GM in DEXTROSE/WATER 1 100ML.BAG IVPB SCH ×2 (06:47→11:20)
[2017-02-02] MEDS: SODIUM CHLORIDE 0.9% 1,000 ML IV SCH ×2 (06:48→14:45)
[2017-02-02] MEDS: IPRATROPIUM-ALBUTEROL 3 ML NEB INHALATION SCH ×4 (07:26→19:01)
--- NOTE | 2017-02-02 08:16 | XR ---
EXAMINATION TYPE: XR chest 1V portable DATE OF EXAM: 02/02/2017 COMPARISON: NONE HISTORY: SOB, Follow Up FINDINGS: Endotracheal tube is unchanged. NG tube is seen coursing into the stomach. Significantly improved perihilar infiltrates with near complete resolution. Stable appearance of the cardio-mediastinal structures at this time. No sizable pleural effusion. IMPRESSION: 1. Significantly improved perihilar infiltrates with near complete resolution.
[2017-02-02] MEDS: PANTOPRAZOLE 40 MG/10 ML VIAL IV SCH (08:23)
[2017-02-02] MEDS: levETIRAcetam IV 1,000 MG in SALINE 1 100ML.BAG IVPB SCH ×2 (08:23→20:36)
[2017-02-02] MEDS: CHLORHEXIDINE GLUCONATE 15 ML CUP MUCOUS MEM SCH ×2 (08:23→20:36)
--- NOTE | 2017-02-02 11:15 | P.PN ---
Subjective Principal diagnosis: Acute respiratory failure secondary to status epilepticus This is a 38-year-old female patient who presented emergency department with status epilepticus. According to the family the patient was having on and off seizures since yesterday evening and these were generalized tonic-clonic seizures. The patient was at home and EMS was called this afternoon and they found the patient having seizures. The patient was given IM Midazolam and following that she was brought into the burst department. Here in the emergency , the patient started having generalized tonic clonic seizures. Later stage, the patient was found also to be going into posturing episodes. Based on that, the patient was intubated and placed on a mechanical ventilator. The patient was started on Diprivan and currently Diprivan is running at 50 mics. The patient also received IV Ativan here in the emergency department to abort her seizures and this was not successful as the patient was having some breakthrough episodes. At that point she was given IV Keppra and she was intubated and placed on a mechanical ventilator and Diprivan drip was initiated. I saw the patient emergency department she was kept quite comfortable without any seizure activity or tonic posturing. I reviewed the chest x-ray post intubation there is development of perihilar bilateral pulmonary infiltrates, probably due to aspiration. She has scattered rhonchi throughout the lung richard. Her urine drug screen was positive for opiates. Her CAT scan of the brain did not show any acute abnormalities. There is questionable possible left posterior scalp contusion and some vague hypodensity in the posterior right temporal lobe underlying nonspecific white matter disease or a small focus of vasogenic edema was not completely excluded. No evidence of any intracranial hemorrhage or midline shift. Cervical spine CAT scan did not show any acute fractures. He is febrile with a temperature of 103 axillary. Her initial blood pressure was 206/107 and following intubation and Diprivan it dropped to 180/90. A Yuan catheter was inserted. Intubation blood gas showed a pH of 7.34 with a pCO2 of 43 and pO2 1 6100% nonrebreather facemask. Her creatinine was at 2.5. Alcohol was negative. Salicylate was negative. Patient is known to Dr. Radha maradiaga recovering. The patient came into the hospital approximately 3 weeks ago and specifically the patient was admitted on live with drug overdose. Shepresented to the emergency room on January 08 after patient was treated for polysubstance drug over dose necessitating intubation and vent support for acute hypoxic respiratory failure. Patient was admitted to the intensive care unit monitored closely patient was able to be extubated and transferred from the ICU to a stepdown unit with the family questing patient under hospice care. Hospice care was initiated patient made a significant clinical improvement the family wanted hospice care stopped and medical care resumed. The patient's urine drug screen was positive on January 08 for opiates, dicyclomine antidepressants, cocaine and marijuana. Patient remained on mechanical ventilation for several days and had a neurological eval done. It was felt that the patient had suffered an anoxic brain injury after to brain scans and 3 EEGs. Patient was not showing any significant neurological improvement or advancement. The patient's power of estate planning attorney Natalya was updated daily on the patient's condition. was requesting that the patient be made comfort care with hospice. This was initiated within 48 hours patient made a significant improvement clinically the patient was taken off of the hospice care discharged from hospice and admitted on January 20 to medical's service. Patient was seen throughout the hospitalization with physical occupational therapy. Psych eval was also requested for episodes of confusion. ecommendations were patient needed outpatient counseling. Patient reportedly boyfriend recently . Psych service indicated that there would be no need to continue any medication. Patient was trialed on respiratory 0.25 at bedtime all in the hospital but this did not need to be continued in the outpatient setting were no further psych recommendations. As mentioned patient stated that [facility] it would certainly return there should she have any difficulties coping with loss of her boyfriend. The creatinine on the day of discharge was 3.3. Nephrology indicate the patient was appropriate to be transferred just continue with sodium bicarb tablets as ordered patient was also felt to be stable from a neurological standpoint and was ready to be transferred to subacute rehab. An EEG was performed showed mild encephalopathy. That the patient was also found to have MRSA bacteremia for which she was treated with vancomycin and she completed her treatment and no further antibiotics was given at time of discharge. Her urine was positive for Micki glabrata breath and had sputum was positive for Micki albicans. Creatinine at time of discharge was 3.3. All antiepileptic medication was given. Her discharge medication included bicarb tablets, morphine sulfate 50 mg by mouth twice a day, vitamin B6, folic acid, the troponin, all a result, levothyroxin, vitamin B12 and baclofen Patient was reevaluated today on 02/02/2017, patient remains on mechanical ventilation, slightly agitated, but not arousable, and clearly does not seem to be appropriate. Apparently the patient had a similar presentation not long ago. Please refer to the note of Dr. Rodriguez above. Ventilator settings are assist control rate of 12 tidal volume of 450 FiO2 of 40% and PEEP of 5. CBC was reviewed, ABG showed a pO2 of 183 pCO2 of 34 pH of 7.44 her basic metabolic profile showed hypokalemia and a picture of chronic kidney injury with a BUN of 22 creatinine of 2.64 which is acute on chronic. Chest x-ray showed improved perihilar infiltrates with near complete resolution. Mother is at bedside, and we'll briefly discussed her presentation, and she gave a bit of history about her initial presentation which sounded to be more of a status epilepticus. Presentation. Objective - Vital Signs Vital signs: Vital Signs Temp 98.9 F 02/02/17 04:00 Pulse 75 02/02/17 08:03 Resp 13 02/02/17 08:00 BP 96/55 02/02/17 07:00 Pulse Ox 99 02/02/17 08:00 Intake & Output 02/01/17 02/02/17 02/02/17 18:59 06:59 18:59 Intake Total 039.663 8880 748.095 Output Total 1825 615 325 Balance -9181.468 1938 423.095 Weight 79.5 kg 82.1 kg 82.1 kg Intake: IV 375 1750 625 Magnesium Sulfate-D5w Pmx 100 1 gm In Dextrose/Water 1 100ml.bag @ 100 mls/hr IVPB Q1H [facility] Rx#: [id number] Potassium Chloride 20 meq 50 150 In Water For Injection 1 100ml.bag @ 50 mls/hr IVPB Q2H [facility] Rx#: [id number] Sodium Chloride 0.9% 1, 375 1500 375 000 ml @ 125 mls/hr IV . Q8H [facility] Rx#:[id number] levETIRAcetam IV 500 mg 100 100 In Sodium Chloride 0.9% 100 ml @ 400 mls/hr IVPB ONCE STA Rx#:[id number] Intake, IV Titration 0.805 200 123.095 Amount Propofol 1,000 mg In 100 0.805 ml @ Titrate IV .Q0M ONE Rx#:[id number] Propofol 1,000 mg In 100 200 123.095 ml @ Titrate IV .Q0M [facility] Rx#:[id number] Oral 60 Output: Urine 1825 615 325 Other: Voiding Method Indwelling Catheter Indwelling Catheter Indwelling Catheter # Bowel Movements 0 0 0 - Exam Physical Exam: Revealed a 46-year-old female on mechanical ventilation lethargic , in no distress, slightly restless and moving her head right and left. HEENT:[Neck is supple.] [No neck masses.] [No thyromegaly.] [No JVD.] Both pupils were noted to be dilated, sluggishly reactive to light. Chest: [Clear throughout, no crackles, no rhonchi, no wheezes.] Cardiac Exam: [Normal S1 and S2, no S3 gallop, no murmur.] Abdomen: [Soft, nontender, no megaly, no rebound, no guarding, normal bowel sounds.] Extremities: [No clubbing, no edema, no cyanosis.] Neurological Exam: Cannot be assessed, patient is on propofol drip, both pupils are dilated and sluggishly reactive to light. - Labs CBC & Chem 7: 02/02/17 04:30 02/02/17 04:30 Labs: Abnormal Lab Results - Last 24 Hours (Table) 02/01/17 02/01/17 02/01/17 Range/Units 11:10 11:45 12:05 WBC 16.2 H (3.8-10.6) k/uL RBC (3.80-5.40) m/uL Hgb (11.4-16.0) gm/dL Hct (34.0-46.0) % RDW 15.8 H (11.5-15.5) % Plt Count 464 H (150-450) k/uL Neutrophils # 14.9 H (1.3-7.7) k/uL Lymphocytes # 0.6 L (1.0-4.8) k/uL ABG pH 7.34 L (7.35-7.45) ABG pCO2 (35-45) mmHg ABG pO2 162 H (83-108) mmHg ABG O2 Saturation 99.0 H (94-97) % Potassium (3.5-5.1) mmol/L BUN (7-17) mg/dL Creatinine (0.52-1.04) mg/dL Glucose (74-99) mg/dL POC Glucose (mg/dL) (75-99) mg/dL Calcium (8.4-10.2) mg/dL Phosphorus (2.5-4.5) mg/dL Magnesium (1.6-2.3) mg/dL CK-MB (CK-2) (0.0-2.4) ng/mL Urine Protein Trace H (Negative) Urine Blood Trace H (Negative) Ur Leukocyte Esterase Trace H (Negative) Urine RBC 7 H (0-5) /hpf Urine WBC 7 H (0-5) /hpf Urine Bacteria Rare H (None) /hpf Urine Opiates Screen Detected H (NotDetected) 02/01/17 02/01/17 02/01/17 Range/Units 12:05 12:05 15:14 WBC (3.8-10.6) k/uL RBC (3.80-5.40) m/uL Hgb (11.4-16.0) gm/dL Hct (34.0-46.0) % RDW (11.5-15.5) % Plt Count (150-450) k/uL Neutrophils # (1.3-7.7) k/uL Lymphocytes # (1.0-4.8) k/uL ABG pH 7.46 H (7.35-7.45) ABG pCO2 29 L (35-45) mmHg ABG pO2 271 H (83-108) mmHg ABG O2 Saturation 100.0 H (94-97) % Potassium (3.5-5.1) mmol/L BUN 21 H (7-17) mg/dL Creatinine 2.54 H (0.52-1.04) mg/dL Glucose 131 H (74-99) mg/dL POC Glucose (mg/dL) (75-99) mg/dL Calcium (8.4-10.2) mg/dL Phosphorus (2.5-4.5) mg/dL Magnesium 1.5 L (1.6-2.3) mg/dL CK-MB (CK-2) 3.4 H* (0.0-2.4) ng/mL Urine Protein (Negative) Urine Blood (Negative) Ur Leukocyte Esterase (Negative) Urine RBC (0-5) /hpf Urine WBC (0-5) /hpf Urine Bacteria (None) /hpf Urine Opiates Screen (NotDetected) 02/01/17 02/02/17 02/02/17 Range/Units 16:27 04:30 04:30 WBC (3.8-10.6) k/uL RBC 2.81 L (3.80-5.40) m/uL Hgb 8.2 L D (11.4-16.0) gm/dL Hct 25.6 L (34.0-46.0) % RDW 15.9 H (11.5-15.5) % Plt Count (150-450) k/uL Neutrophils # (1.3-7.7) k/uL Lymphocytes # (1.0-4.8) k/uL ABG pH (7.35-7.45) ABG pCO2 (35-45) mmHg ABG pO2 (83-108) mmHg ABG O2 Saturation (94-97) % Potassium 3.0 L* (3.5-5.1) mmol/L BUN 22 H (7-17) mg/dL Creatinine 2.64 H (0.52-1.04) mg/dL Glucose (74-99) mg/dL POC Glucose (mg/dL) 108 H (75-99) mg/dL Calcium 7.7 L (8.4-10.2) mg/dL Phosphorus 4.7 H (2.5-4.5) mg/dL Magnesium (1.6-2.3) mg/dL CK-MB (CK-2) (0.0-2.4) ng/mL Urine Protein (Negative) Urine Blood (Negative) Ur Leukocyte Esterase (Negative) Urine RBC (0-5) /hpf Urine WBC (0-5) /hpf Urine Bacteria (None) /hpf Urine Opiates Screen (NotDetected) 02/02/17 Range/Units 05:20 WBC (3.8-10.6) k/uL RBC (3.80-5.40) m/uL Hgb (11.4-16.0) gm/dL Hct (34.0-46.0) % RDW (11.5-15.5) % Plt Count (150-450) k/uL Neutrophils # (1.3-7.7) k/uL Lymphocytes # (1.0-4.8) k/uL ABG pH (7.35-7.45) ABG pCO2 34 L (35-45) mmHg ABG pO2 183 H (83-108) mmHg ABG O2 Saturation 99.7 H (94-97) % Potassium (3.5-5.1) mmol/L BUN (7-17) mg/dL Creatinine (0.52-1.04) mg/dL Glucose (74-99) mg/dL POC Glucose (mg/dL) (75-99) mg/dL Calcium (8.4-10.2) mg/dL Phosphorus (2.5-4.5) mg/dL Magnesium (1.6-2.3) mg/dL CK-MB (CK-2) (0.0-2.4) ng/mL Urine Protein (Negative) Urine Blood (Negative) Ur Leukocyte Esterase (Negative) Urine RBC (0-5) /hpf Urine WBC (0-5) /hpf Urine Bacteria (None) /hpf Urine Opiates Screen (NotDetected) Microbiology - Last 24 Hours (Table) 02/01/17 14:35 Gram Stain - Preliminary Sputum Sputum Culture - Preliminary 02/01/17 11:45 Urine Culture - Preliminary Urine,Catheterized Assessment and Plan Plan: 1 status epilepticus, patient started having generalized tonic-clonic seizures upon presentation The exact duration and the frequency of the seizures is not known. The patient came in in a postictal state. Further tonic clonic seizures were noted. She also was noted to have posturing at one point by the emergency physician. CAT scan of the brain was noted. The patient was initially given Ativan and then And subsequently she was intubated and placed on a mechanical ventilator where she was started also on Diprivan drip. Currently she has no active or obvious seizures at least on clinical grounds. 2 acute respiratory failure secondary to above 3 acute bilateral pulmonary infiltrates, perihilar. Rule out early acute lung injury versus aspiration 4 acute febrile illness, cultures in progress,, multiple sources of fever including possible ongoing urine checked infection versus sepsis versus pneumonia versus seizures. Meningitis is felt to be less likely. No neck stiffness. Neurology is to follow. 5 acute kidney injury. The patient developed a vancomycin-induced acute kidney injury at time of admission approximately 3 weeks ago and creatinine overall seems to be improving knowing that her current creatinine is less then the one that she had a time of discharge. Nephrology should be on the case. 6 polysubstance abuse, history of 7 recent history of drug overdose 8 recent history of metabolic encephalopathy and possible hypoxic encephalopathy post drug overdose 9 MRSA bacteremia, treated with vancomycin 10 candiduria in the urine, Micki glabrata, probably a colonizer 11 CVA, history of 12 hypothyroidism 13 chronic pain maintained on morphine an outpatient basis in conjunction with baclofen and gabapentin Recommendation: Continue ventilatory support, patient is clearly not ready to be weaned at this point, I would like to see significant improvement in her mental status, we'll continue IV antibiotics, patient is being followed by neurology regarding her mental status, continue IV Keppra, no witnessed seizures in the last 24 hours, CT of the brain was noted, her renal failure is being addressed by nephrology and she was seen by nephrology on her last admission. A triple-lumen catheter was placed on admission by Dr. Rodriguez, continue updrafts, GI prophylaxis, DVT prophylaxis, we'll continue to follow. Patient is definitely critically ill, had discussion with her mother and she explained to me her presentation because her seizures were witnessed by her mother at the time of presentation to the hospital. Tomorrow, patient will be followed by Dr. Maldonado since he has see her in the past. Critical care time is 34 minutes. Time with Patient: Greater than 30
[2017-02-02 13:17] LABS: Calcium 7.8 mg/dL (8.4-10.2); Magnesium 2.1 mg/dL (1.6-2.3); Potassium 3.4 mmol/L (3.5-5.1)
--- NOTE | 2017-02-02 14:15 | PCN ---
TRANSITIONAL TRIPLE LUMEN CATHETER: CLINICAL DIAGNOSIS: Status epilepticus. POSTOPERATIVE DIAGNOSIS: Status epilepticus. SITE OF INSERTION: Right femoral vein. The patient's right groin was prepped using chlorhexidine and was anesthetized using 1% lidocaine. The right femoral artery was identified. Following that, the introducer needle was used and the right femoral vein was cannulated. A guidewire was inserted. The needle was removed and the skin was incised using a scalpel. Following that the skin was dilated and using the Seldinger technique a triple lumen catheter was inserted over the guidewire into the right femoral vein. A gallop was removed and the blood return was adequate. There triple lumen catheter was sutured in place and the different ports were flushed. No bedside complication or bleeding. This was done successfully. CLARI
[2017-02-02] MEDS: POTASSIUM CHLORIDE ORAL LIQUID 40 MEQ/30 ML CUP NG-TUBE SCH ×2 (14:39→14:44)
[2017-02-02] MEDS: HEPARIN SODIUM,PORCINE 5,000 UNIT/ML 1 ML VIAL SQ SCH (16:12)
--- NOTE | 2017-02-02 16:13 | P.PN ---
Subjective Principal diagnosis: Patient is a 46-year-old female who is being followed by the neurology service for status epilepticus. Patient is known to our service. Patient recently had admission for opioid overdose and was placed on the ventilator. During previous admission, patient's hospital course was guarded. Patient had legal guardian appointed and patient was placed in hospice service. Patient mentation significantly improved and patient was taken off of hospice care. Patient eventually was discharged home. Patient now presents with multiple witnessed seizures. Patient was brought by EMS to [facility]. Patient was given multiple doses of Ativan and seizures continued. Patient was intubated and started on a Diprovan drip. Computed tomography scan of the brain was done which showed possible left posterior scalp contusion. CT also showed vague hypodensity in the posterior right temporal lobe. Underlying nonspecific white matter disease or small focus of vasogenic edema possible. There was no i acute intracranial changes. Currently patient is intubated in the ICU. At the time of my evaluation, EEG was just performed. Patient has been off Diprivan drip for approximately 45 minutes. Objective - Vital Signs Vital signs: Vital Signs Temp 98.2 F 02/02/17 12:00 Pulse 70 02/02/17 15:46 Resp 12 02/02/17 15:45 BP 152/90 02/02/17 15:00 Pulse Ox 100 02/02/17 15:45 Intake & Output 02/01/17 02/02/17 02/02/17 18:59 06:59 18:59 Intake Total 127.619 1776 1384.725 Output Total 1493 357 9439 Balance -3309.481 0037 184.725 Weight 79.5 kg 82.1 kg 83.3 kg Intake: IV 375 1750 1250 Magnesium Sulfate-D5w Pmx 100 1 gm In Dextrose/Water 1 100ml.bag @ 100 mls/hr IVPB Q1H [facility] Rx#: [id number] Potassium Chloride 20 meq 50 150 In Water For Injection 1 100ml.bag @ 50 mls/hr IVPB Q2H [facility] Rx#: [id number] Sodium Chloride 0.9% 1, 375 1500 1000 000 ml @ 125 mls/hr IV . Q8H [facility] Rx#:[id number] levETIRAcetam IV 500 mg 100 100 In Sodium Chloride 0.9% 100 ml @ 400 mls/hr IVPB ONCE STA Rx#:[id number] Intake, IV Titration 0.805 200 124.725 Amount Propofol 1,000 mg In 100 0.805 ml @ Titrate IV .Q0M [facility] Rx#:[id number] Propofol 1,000 mg In 100 200 124.725 ml @ Titrate IV .Q0M [facility] Rx#:[id number] Oral 60 Tube Feeding 10 Output: Urine 0299 561 1370 Other: Voiding Method Indwelling Catheter Indwelling Catheter Indwelling Catheter # Bowel Movements 0 0 0 - Exam PHYSICAL EXAM: GENERAL APPEARANCE: Patient is a well-developed, female who is intubated in the intensive care unit HEENT: Normocephalic, atraumatic, no facial asymmetry is seen. Neck is supple with no masses felt. CARDIOVASCULAR: Regular rate and rhythm. ABDOMEN: Nontender, nondistended. EXTREMITIES: Show no edema or clubbing. NEUROLOGICAL EXAM: A meaningful neurological exam could not be performed due to intubation and sedation in the intensive care unit. - Labs CBC & Chem 7: 02/02/17 04:30 02/02/17 12:55 Labs: Abnormal Lab Results - Last 24 Hours (Table) 02/01/17 02/02/17 02/02/17 Range/Units 16:27 04:30 04:30 RBC 2.81 L (3.80-5.40) m/uL Hgb 8.2 L D (11.4-16.0) gm/dL Hct 25.6 L (34.0-46.0) % RDW 15.9 H (11.5-15.5) % ABG pCO2 (35-45) mmHg ABG pO2 (83-108) mmHg ABG O2 Saturation (94-97) % Potassium 3.0 L* (3.5-5.1) mmol/L Chloride (98-107) mmol/L BUN 22 H (7-17) mg/dL Creatinine 2.64 H (0.52-1.04) mg/dL POC Glucose (mg/dL) 108 H (75-99) mg/dL Calcium 7.7 L (8.4-10.2) mg/dL Phosphorus 4.7 H (2.5-4.5) mg/dL 02/02/17 02/02/17 Range/Units 05:20 12:55 RBC (3.80-5.40) m/uL Hgb (11.4-16.0) gm/dL Hct (34.0-46.0) % RDW (11.5-15.5) % ABG pCO2 34 L (35-45) mmHg ABG pO2 183 H (83-108) mmHg ABG O2 Saturation 99.7 H (94-97) % Potassium 3.4 L (3.5-5.1) mmol/L Chloride 109 H (98-107) mmol/L BUN 21 H (7-17) mg/dL Creatinine 2.53 H (0.52-1.04) mg/dL POC Glucose (mg/dL) (75-99) mg/dL Calcium 7.8 L (8.4-10.2) mg/dL Phosphorus (2.5-4.5) mg/dL Microbiology - Last 24 Hours (Table) 02/01/17 14:35 Gram Stain - Preliminary Sputum Sputum Culture - Preliminary 02/01/17 11:45 Urine Culture - Preliminary Urine,Catheterized Assessment and Plan Plan: Impression: 1. Status epilepticus, tonic-clonic seizure type 2. Acute respiratory failure 3. Recent history of drug overdose, polysubstance abuse 4. Acute kidney insufficiency 5. Fever Recommendation: It appears the patient was experiencing multiple seizures. Exact history of the description and duration of these seizures is unavailable. As previously mentioned, urine drug screen was positive for opiates. Currently she has no active seizure activity. EEG was done and shows severe encephalopathy. Patient does withdraw to painful stimuli. I recommend continuing Keppra 1000 mg IV every 12 hours. Continue ICU support. Continue investigation of fever. Continue seizure precautions. Continue neurological checks as appropriate. I will continue to follow with you. Further recommendations to follow. I performed an examination of the patient and discussed the management with the MACHINE SHOP SUPERVISOR. I have reviewed the MACHINE SHOP SUPERVISOR notes and agree with the findings and plan of care.
[2017-02-02] MEDS ORDERED: Potassium Replacement Protocol 1 EACH MISC MISCELLANE PRN (18:56)
[2017-02-02] MEDS ORDERED: POTASSIUM CHLORIDE ORAL LIQUID 40 MEQ/30 ML CUP NG-TUBE SCH (19:00)
[2017-02-03] MEDS: HEPARIN SODIUM,PORCINE 5,000 UNIT/ML 1 ML VIAL SQ SCH ×3 (00:18→17:42)
[2017-02-03] MEDS: GABAPENTIN 300 MG CAP PO SCH ×3 (00:18→08:47)
[2017-02-03] MEDS: SODIUM CHLORIDE 0.9% 1,000 ML IV SCH ×3 (00:59→12:00)
[2017-02-03] MEDS: LEVOTHYROXINE 137 MCG TAB PO SCH (03:35)
[2017-02-03 03:58] LABS: ABG Base Excess -2.9 mmol/L; ABG HCO3 21 mmol/L (21-25); ABG PCO2 34 mmHg (35-45); ABG PH 7.41 (7.35-7.45); ABG PO2 176 mmHg (83-108); ABG TCO2 22 mmol/L (19-24)
[2017-02-03 04:55] LABS: Anisocytosis Slight; Basophils # (A) 0.1 k/uL (0-0.2); Basophils % (A) 1 %; CH 30.1; CHCM 32.8; Eosinophils # (A) 0.2 k/uL (0-0.7); Eosinophils % (A) 4 %; HCT 25.7 % (34.0-46.0); HDW 3.16; HGB 8.2 gm/dL (11.4-16.0); Luc % (Auto) 2; Lymphocytes # (A) 1.7 k/uL (1.0-4.8); Lymphocytes % (A) 28 %; MCH 29.5 pg (25.0-35.0); Mean Platelet Volume 8.1; Monocytes # (A) 0.5 k/uL (0-1.0); Monocytes % (A) 8 %; Neutrophils # (A) 3.6 k/uL (1.3-7.7); Neutrophils % (A) 59 %; RBC 2.79 m/uL (3.80-5.40); RDW 16.2 % (11.5-15.5); WBC 6.2 k/uL (3.8-10.6); WBC (Perox) 6.13
[2017-02-03] MEDS: PROPOFOL 1,000 MG/100 ML VIAL IV SCH (05:10)
[2017-02-03 05:17] LABS: Calcium 8.1 mg/dL (8.4-10.2); Phosphorous 3.9 mg/dL (2.5-4.5); Potassium 3.7 mmol/L (3.5-5.1)
--- NOTE | 2017-02-03 05:27 | EEG ---
DATE OF SERVICE: 02/02/2017 REASON FOR TESTING: Altered mental status. DESCRIPTION OF THE PROCEDURE: This EEG was performed using a 21-channel digital electroencephalograph, following international 10-20 system. DESCRIPTION OF THE RECORDING: From the beginning of the tracing, and with the patient's eyes closed, the background rhythm was mostly consisting of 5 Hz theta frequency in the posterior occipital leads. Occasional slowing into the delta range was seen. Photic stimulation was performed with no driving response seen. No pathological waves were elicited. Occasional muscle artifacts are seen later in the tracing. No epileptiform discharges were seen. INTERPRETATION: This awake EEG is abnormal due to the presence of generalized slowing of the background, mostly in the theta range and occasionally into the delta range. This is consistent with severe encephalopathy. No epileptiform discharges were seen. The absence of epileptiform discharges does not rule out the diagnosis of epilepsy, therefore clinical correlation is recommended. MTDD
[2017-02-03] MEDS ORDERED: POTASSIUM CHLORIDE ORAL LIQUID 40 MEQ/30 ML CUP NG-TUBE SCH (06:00)
[2017-02-03] MEDS: IPRATROPIUM-ALBUTEROL 3 ML NEB INHALATION SCH ×5 (07:14→20:11)
--- NOTE | 2017-02-03 07:34 | XR ---
EXAMINATION TYPE: XR chest 1V portable DATE OF EXAM: 02/03/2017 COMPARISON: February 02, 2017 HISTORY: SOB, Follow Up FINDINGS: Indwelling tubes and catheters are unchanged. The lungs are relatively clear. Mild linear atelectasis left medial lung base. Stable appearance of the cardio-mediastinal structures at this time. IMPRESSION: 1. Stable portable chest. Clinical correlation and follow up until resolution is recommended.
[2017-02-03] MEDS: CHLORHEXIDINE GLUCONATE 15 ML CUP MUCOUS MEM SCH ×2 (08:47→20:08)
[2017-02-03] MEDS: levETIRAcetam IV 1,000 MG in SALINE 1 100ML.BAG IVPB SCH ×2 (08:47→20:09)
[2017-02-03] MEDS: PANTOPRAZOLE 40 MG/10 ML VIAL IV SCH (08:48)
[2017-02-03 10:17] LABS: ABG Base Excess -3.1 mmol/L; ABG HCO3 21 mmol/L (21-25); ABG PCO2 34 mmHg (35-45); ABG PH 7.41 (7.35-7.45); ABG PO2 169 mmHg (83-108); ABG TCO2 22 mmol/L (19-24)
--- NOTE | 2017-02-03 10:26 | HP ---
CHIEF COMPLAINT: A 46-year-old white female status epilepticus. HISTORY OF PRESENT ILLNESS: A 46-year-old white female who presented to the emergency with status epilepticus. Apparently, she was having seizures on and off since yesterday evening, general tonic clonic. The patient was given ( ) and followed. She was brought to the emergency room for general tonic clonic seizures. Her and her mother left the hospital AGAINST MEDICAL ADVICE yesterday. She was walking and talking yesterday on discharge. She had not ( ) in the hospital for multiple days. She was started on Diprivan, placed in ICU at this time. Intubation was done for airway protection. It apparent had bilateral pulmonary infiltrates due to aspiration and chronic rhonchi through her lung richard. Urine drug screen is positive for opiates. Apparently , her mother gave her some opiates at home and benzodiazepine. CAT scan of the brain was normal. Blood pressure was 200s over 107. Temp was 103. Intubation was done. Creatinine was 2.5. She is status post polysubstance drug abuse overdose after acute hypoxemic respiratory failure. She was extubated and she was doing well prior to signing out AMA this past weekend, in fact 2 days ago. She was treated with vancomycin for MRSA bacteremia also. HOME MEDICATIONS AND ALLERGIES: Reviewed. VITAL SIGNS: T-max 103, pulse 80s to 102, respirations 16 to 20, blood pressure 160 to 204 over 97 to 115. CARDIOVASCULAR: S1, S2. LUNGS: Scattered rhonchi. HEMATOLOGY: Negative Homans. VASCULAR: Normal dorsalis pedis, posterior tibial, radial pulses. OPHTHALMOLOGIC: Pupils equal, round and reactive. White count 16.2, hemoglobin 12.3. ASSESSMENT: 1. Status epilepticus, status post tonic clonic seizures. 2. Acute respiratory failure. 3. Acute bilateral pulmonary infiltrates. 4. Aspiration pneumonia. 5. Sepsis versus pneumonia versus seizures. 6. Acute renal injury, possibly due to vancomycin. 7. Polysubstance abuse drug overdose. 8. Noncompliance with medical care. 9. Metabolic encephalopathy. 10. Methicillin-resistant Staphylococcus aureus bacteremia. 11. Fay in the urine. 12. History of cerebrovascular accident. 13. Hypothyroidism. 14. Chronic pain management. ( ) procedures, stat EEG, neurology, DuoNeb, Synthroid, Protonix, subcu heparin. Please see further orders on chart. ICU TIME: 45. MTDD
--- NOTE | 2017-02-03 11:40 | P.NPCON ---
History of Present Illness - Reason for Consult acute renal failure - History of Present Illness Reason for consultation: Acute kidney injury History of present illness: Patient is a 46-year-old female seen in renal consultation for acute kidney injury. Her baseline creatinine is 1 and was elevated at 3.4 last admission earlier this month due to vancomycin toxicity. Vancomycin was stopped in renal function has been gradually improving. Patient had left AGAINST MEDICAL ADVICE and then presented again to the hospital yesterday with status epilepticus. She is currently maintained on Keppra. She was extubated this morning. Currently resting in bed. Patient is still quite lethargic and not a very reliable historian. She is nonoliguric. Renal function has been improving with creatinine down to 2.2 today. Her urinalysis last admission was quite benign. EEG this admission was suggestive of severe encephalopathy without epileptiform discharges. No nephrotoxins noted at this time. Hemodynamically stable. Vital signs are stable. General: The patient appeared well nourished and normally developed. HEENT: Head exam is unremarkable. Neck is without jugular venous distension. LUNGS: Lungs are clear to auscultation and percussion. Breath sounds decreased. HEART: Rate and Rhythm are regular. First and second heart sounds normal. No murmurs, rubs or gallops. ABDOMEN: Abdominal exam reveals normal bowel sounds. Non-tender and non- distended. No evidence of peritonitis. EXTREMITITES: Trace edema. Past Medical History Past Medical History: No Reported History Additional Past Medical History / Comment(s): Polysubstance abuse, recent admission on 01/08/2017 with acute hypoxic respiratory failure due to polysubstance abuse, MRSA bacteremia, acute kidney failure suspected to be vancomycin toxicity, CVA, hypothyroidism, chronic pain History of Any Multi-Drug Resistant Organisms: Unobtainable Date of last positivie culture/infection: 01/08/17 MDRO Source:: BLOOD Past Surgical History: No Surgical Hx Reported Additional Past Surgical History / Comment(s): Tubal ligation, appendectomy, neck fusion involving the cervical spine Past Anesthesia/Blood Transfusion Reactions: No Reported Reaction, Unable to Obtain Past Psychological History: No Psychological Hx Reported Smoking Status: Unknown if ever smoked Past Alcohol Use History: Unable to Obtain Past Drug Use History: Unable to Obtain - Past Family History Father History Unknown: Yes Family Medical History: Unable to Obtain Mother History Unknown: Yes Family Medical History: Unable to Obtain Medications and Allergies Home Medications Medication Instructions Recorded Confirmed Type Baclofen [Lioresal] 20 mg PO TID 01/08/17 01/20/17 History Cyanocobalamin (Vitamin B-12) 1,000 mcg PO DAILY 01/08/17 01/20/17 History [Vitamin B-12] Levothyroxine Sodium [Synthroid] 137 mcg PO DAILY 01/08/17 01/20/17 History Omeprazole 40 mg PO DAILY 01/08/17 01/20/17 History Oxybutynin Chloride [Ditropan] 5 mg PO TID 01/08/17 01/20/17 History Pyridoxine [Vitamin B-6] 50 mg PO DAILY 01/08/17 01/20/17 History Baclofen [Lioresal] 20 mg PO TID 02/01/17 02/01/17 History Gabapentin 600 mg PO Q4HR 02/01/17 02/01/17 History HYDROcodone/IBUPROFEN [Xylon 0.5 tab PO BID 02/01/17 02/01/17 History 10-200 mg Tablet] Levothyroxine Sodium [Tirosint] 137 mcg PO DAILY 02/01/17 02/01/17 History Loratadine [Claritin] 10 mg PO DAILY 02/01/17 02/01/17 History Morphine Sulfate ER [Ms Contin 30 mg PO DAILY 02/01/17 02/01/17 History 30Mg] Morphine Sulfate ER [Ms Contin] 15 mg PO HS 02/01/17 02/01/17 History Naproxen [Naprosyn] 500 mg PO Q12H 02/01/17 02/01/17 History Omeprazole [PriLOSEC] 40 mg PO DAILY 02/01/17 02/01/17 History Allergies Allergy/AdvReac Type Severity Reaction Status Date / Time acetaminophen Allergy Unknown Verified 01/16/17 13:38 aspirin Allergy Rash/Hives Verified 02/01/17 15:35 DAIRY Allergy Vomiting Uncoded 01/08/17 17:54 Physical Exam Vitals: Vital Signs Temp Pulse Resp BP Pulse Ox 02/03/17 11:27 84 02/03/17 10:00 76 10 L 153/85 100 02/03/17 09:00 78 14 124/73 100 02/03/17 08:05 77 02/03/17 08:00 98.1 F 80 14 141/81 100 02/03/17 07:15 75 02/03/17 07:00 80 12 138/80 100 02/03/17 06:00 79 15 145/75 100 02/03/17 05:00 82 15 144/96 100 02/03/17 04:00 98.9 F 70 11 L 165/94 100 02/03/17 03:31 13 100 02/03/17 03:00 74 13 144/83 100 02/03/17 02:00 75 15 149/83 100 02/03/17 01:00 67 14 140/82 100 02/03/17 00:00 97.9 F 69 12 142/86 100 02/02/17 23:00 71 12 112/80 100 02/02/17 22:00 73 13 145/95 100 02/02/17 21:52 68 17 100 02/02/17 21:00 72 12 146/82 100 02/02/17 20:00 99 F 73 12 142/93 100 02/02/17 19:13 88 02/02/17 19:01 90 02/02/17 19:00 70 11 L 122/78 100 02/02/17 18:00 67 13 117/71 100 02/02/17 17:00 72 13 147/91 99 02/02/17 16:16 76 02/02/17 16:00 97.8 F 68 12 113/67 100 02/02/17 15:46 70 02/02/17 15:45 12 100 02/02/17 15:00 68 12 152/90 100 02/02/17 14:00 82 20 165/79 100 02/02/17 13:00 82 21 149/87 100 02/02/17 12:00 98.2 F 74 20 158/90 100 02/02/17 11:53 85 Intake and Output 02/02/17 02/03/17 02/03/17 22:59 06:59 14:59 Intake Total 9069.556 3096 750 Output Total 0449 080 3011 Balance -94.725 520 -250 Intake: IV 1100 1000 500 Sodium Chloride 0.9% 1, 1000 1000 500 000 ml @ 125 mls/hr IV . Q8H [facility] Rx#:[id number] levETIRAcetam IV 500 mg 100 In Sodium Chloride 0.9% 100 ml @ 400 mls/hr IVPB ONCE [facility] Rx#:[id number] Intake, IV Titration 75.275 100 100 Amount Propofol 1,000 mg In 100 75.275 100 ml @ Titrate IV .Q0M [facility] Rx#:[id number] levETIRAcetam IV 1,000 mg 100 In Saline 1 100ml.bag @ 400 mls/hr IVPB Q12HR [facility] Rx#:[id number] Tube Feeding 50 210 90 Other 100 60 Output: Gastric Drainage 540 Urine 477 059 4482 Other: Voiding Method Indwelling Catheter Indwelling Catheter Indwelling Catheter # Bowel Movements 0 0 0 Weight 83.3 kg 83.3 kg Results - Lab Results Most recent lab results ABG pH 7.41 (7.35-7.45) 02/03/17 10:09 ABG pCO2 34 mmHg (35-45) L 02/03/17 10:09 ABG pO2 169 mmHg (83-108) H 02/03/17 10:09 ABG HCO3 21 mmol/L (21-25) 02/03/17 10:09 ABG O2 Saturation 100.0 % (94-97) H 02/03/17 10:09 Calcium 8.1 mg/dL (8.4-10.2) L 02/03/17 04:40 Phosphorus 3.9 mg/dL (2.5-4.5) 02/03/17 04:40 Magnesium 2.0 mg/dL (1.6-2.3) 02/03/17 04:40 02/03/17 04:40 02/03/17 10:20 Assessment and Plan Plan: Assessment: #1. Nonoliguric acute kidney injury secondary to vancomycin toxicity. Creatinine earlier this month had peaked at 3.4 and has been gradually improving. It is down to 2.2 today. Earlier urinalysis was quite benign. Her baseline creatinine is near 1. #2. Status epilepticus. #3. Anemia. Rule out iron deficiency. #4. Hypokalemia secondary to renal potassium wasting with recovering renal function. Magnesium replete. Plan: Decrease rate of IV fluids to 75 mL an hour. Diet to be advanced as able to tolerate. I will decrease the dose of Neurontin to 200 mg every 4 hours. Avoid nephrotoxic agents and hypotensive episodes. Check iron studies. Repeat electrolytes in the morning. Thank you for the consultation. I will continue to follow the patient with you during her hospital stay.
[2017-02-03 12:59] LABS: % Iron Saturation 12.4 % (20-50)
--- NOTE | 2017-02-03 13:03 | P.PN ---
Subjective Principal diagnosis: Patient seen and evaluated examined in the morning rounds critical care time spent 35 minutes, rations remains on full respirator support however more arousable and opens eyes and follows simple commands remains on propofol drip currently patient is on assist control mode, her last chest x-ray performed earlier today reviewed basal atelectasis on the left base was seen otherwise fairly unremarkable, patient is making good urine output IV fluids are being tapered down, her culture results are reported lab. Data reviewed, so far blood cultures have been negative by sputum cultures are negative as well patient is being planned for CPAP and pressure support has been placed on CPAP 5 pressure support of 5 arterial blood gas and weaning parameters are reviewed we'll proceed with extubation This is a 38-year-old female patient who presented emergency department with status epilepticus. According to the family the patient was having on and off seizures since yesterday evening and these were generalized tonic-clonic seizures. The patient was at home and EMS was called this afternoon and they found the patient having seizures. The patient was given IM Midazolam and following that she was brought into the burst department. Here in the emergency , the patient started having generalized tonic clonic seizures. Later stage, the patient was found also to be going into posturing episodes. Based on that, the patient was intubated and placed on a mechanical ventilator. The patient was started on Diprivan and currently Diprivan is running at 50 mics. The patient also received IV Ativan here in the emergency department to abort her seizures and this was not successful as the patient was having some breakthrough episodes. At that point she was given IV Keppra and she was intubated and placed on a mechanical ventilator and Diprivan drip was initiated. I saw the patient emergency department she was kept quite comfortable without any seizure activity or tonic posturing. I reviewed the chest x-ray post intubation there is development of perihilar bilateral pulmonary infiltrates, probably due to aspiration. She has scattered rhonchi throughout the lung richard. Her urine drug screen was positive for opiates. Her CAT scan of the brain did not show any acute abnormalities. There is questionable possible left posterior scalp contusion and some vague hypodensity in the posterior right temporal lobe underlying nonspecific white matter disease or a small focus of vasogenic edema was not completely excluded. No evidence of any intracranial hemorrhage or midline shift. Cervical spine CAT scan did not show any acute fractures. He is febrile with a temperature of 103 axillary. Her initial blood pressure was 206/107 and following intubation and Diprivan it dropped to 180/90. A Yuan catheter was inserted. Intubation blood gas showed a pH of 7.34 with a pCO2 of 43 and pO2 1 6100% nonrebreather facemask. Her creatinine was at 2.5. Alcohol was negative. Salicylate was negative. Objective - Vital Signs Vital signs: Vital Signs Temp 98.1 F 02/03/17 08:00 Pulse 88 02/03/17 11:48 Resp 10 L 02/03/17 10:00 BP 153/85 02/03/17 10:00 Pulse Ox 100 02/03/17 10:00 Intake & Output 02/02/17 02/03/17 02/03/17 18:59 06:59 18:59 Intake Total 7360.166 8768.275 750 Output Total 2155 1130 1000 Balance -230.275 830.275 -250 Weight 83.3 kg 83.3 kg Intake: IV 1750 1475 500 Potassium Chloride 20 meq 150 In Water For Injection 1 100ml.bag @ 50 mls/hr IVPB Q2H [facility] Rx#: [id number] Sodium Chloride 0.9% 1, 1500 1375 500 000 ml @ 125 mls/hr IV . Q8H [facility] Rx#:[id number] levETIRAcetam IV 500 mg 100 100 In Sodium Chloride 0.9% 100 ml @ 400 mls/hr IVPB ONCE [facility] Rx#:[id number] Intake, IV Titration 124.725 175.275 100 Amount Propofol 1,000 mg In 100 124.725 175.275 ml @ Titrate IV .Q0M [facility] Rx#:[id number] levETIRAcetam IV 1,000 mg 100 In Saline 1 100ml.bag @ 400 mls/hr IVPB Q12HR [facility] Rx#:[id number] Tube Feeding 50 210 90 Other 100 60 Output: Gastric Drainage 540 Urine 1615 1130 1000 Other: Voiding Method Indwelling Catheter Indwelling Catheter Indwelling Catheter # Bowel Movements 0 0 0 Physical Exam: Revealed a 46-year-old female on mechanical ventilation lethargic , in no distress, slightly restless and moving her head right and left. Arousable and opens eyes follow simple commands HEENT:[Neck is supple.] [No neck masses.] [No thyromegaly.] [No JVD.] Both pupils were noted to be dilated, reactive to light. Chest: [Clear throughout, no crackles, no rhonchi, no wheezes.] Cardiac Exam: [Normal S1 and S2, no S3 gallop, no murmur.] Abdomen: [Soft, nontender, no megaly, no rebound, no guarding, normal bowel sounds.] Extremities: [No clubbing, no edema, no cyanosis.] Neurological Exam: Cannot be assessed, patient is on propofol drip, both pupils are reactive to light, however patient does follow simple commands and move all 4 extremity appears to be less anxious and agitated. - Labs CBC & Chem 7: 02/03/17 04:40 02/03/17 10:20 Labs: Abnormal Lab Results - Last 24 Hours (Table) 02/02/17 02/03/17 02/03/17 Range/Units 12:55 03:52 04:40 RBC 2.79 L (3.80-5.40) m/uL Hgb 8.2 L (11.4-16.0) gm/dL Hct 25.7 L (34.0-46.0) % RDW 16.2 H (11.5-15.5) % ABG pCO2 34 L (35-45) mmHg ABG pO2 176 H (83-108) mmHg ABG O2 Saturation 100.0 H (94-97) % Potassium 3.4 L (3.5-5.1) mmol/L Chloride 109 H (98-107) mmol/L BUN 21 H (7-17) mg/dL Creatinine 2.53 H (0.52-1.04) mg/dL Calcium 7.8 L (8.4-10.2) mg/dL 02/03/17 02/03/17 Range/Units 04:40 10:09 RBC (3.80-5.40) m/uL Hgb (11.4-16.0) gm/dL Hct (34.0-46.0) % RDW (11.5-15.5) % ABG pCO2 34 L (35-45) mmHg ABG pO2 169 H (83-108) mmHg ABG O2 Saturation 100.0 H (94-97) % Potassium (3.5-5.1) mmol/L Chloride 112 H (98-107) mmol/L BUN 19 H (7-17) mg/dL Creatinine 2.20 H (0.52-1.04) mg/dL Calcium 8.1 L (8.4-10.2) mg/dL Microbiology - Last 24 Hours (Table) 02/01/17 14:35 Gram Stain - Final Sputum Sputum Culture - Final 02/01/17 11:45 Urine Culture - Final Urine,Catheterized 02/01/17 15:35 Blood Culture - Preliminary Blood No Growth after 24 hours Assessment and Plan Plan: 1 status epilepticus, patient has been seizure free in the last 24 hours of note however patient started having generalized tonic-clonic seizures upon presentation The exact duration and the frequency of the seizures is not known. The patient came in in a postictal state. Further tonic clonic seizures were noted. She also was noted to have posturing at one point by the emergency physician. CAT scan of the brain was noted. The patient was initially given Ativan and then And subsequently she was intubated and placed on a mechanical ventilator where she was started also on Diprivan drip. Currently she has no active or obvious seizures at least on clinical grounds. 2 acute respiratory failure secondary to above 3 acute bilateral pulmonary infiltrates, perihilar. Rule out early acute lung injury versus aspiration, with left lower lobe basal atelectasis 4 acute febrile illness, cultures in progress,, multiple sources of fever including possible ongoing urine checked infection versus sepsis versus pneumonia versus seizures. Meningitis is felt to be less likely. No neck stiffness. Neurology is to follow. 5 acute kidney injury. The patient developed a vancomycin-induced acute kidney injury at time of admission approximately 3 weeks ago and creatinine overall seems to be improving knowing that her current creatinine is less then the one that she had a time of discharge. Nephrology should be on the case. 6 polysubstance abuse, history of 7 recent history of drug overdose 8 recent history of metabolic encephalopathy and possible hypoxic encephalopathy post drug overdose 9 MRSA bacteremia, treated with vancomycin 10 candiduria in the urine, Micki glabrata, probably a colonizer 11 CVA, history of 12 hypothyroidism 13 chronic pain maintained on morphine an outpatient basis in conjunction with baclofen and gabapentin Recommendation: Continue ventilatory support, patient is clearly not ready to be weaned at this point, I would like to see significant improvement in her mental status, we'll continue IV antibiotics, patient is being followed by neurology regarding her mental status, continue IV Keppra, no witnessed seizures in the last 24 hours, CT of the brain was noted, her renal failure is being addressed by nephrology , as dictated above patient has tolerated weaning well being planned for extubation will initiate patient on physical therapy increase activity as tolerated postextubation we maintained on supplemental oxygen breathing treatments as patient hasn't abated and wheezing will add IV steroids repeat chest x-ray and labs tomorrow. Time with Patient: Greater than 30 (Critical care time 35 minutes)
[2017-02-03] MEDS: GABAPENTIN 100 MG CAP PO SCH ×3 (13:50→21:24)
[2017-02-03] MEDS: methylPREDNISolone SOD SUCCI 40 MG/ML 1 ML VIAL IV SCH ×2 (14:12→17:43)
[2017-02-04] MEDS: HEPARIN SODIUM,PORCINE 5,000 UNIT/ML 1 ML VIAL SQ SCH ×3 (00:05→16:36)
[2017-02-04] MEDS: methylPREDNISolone SOD SUCCI 40 MG/ML 1 ML VIAL IV SCH ×4 (00:05→17:57)
[2017-02-04 05:11] LABS: Basophils % (A) 0 %; CH 29.6; CHCM 33.3; Eosinophils # (A) 0.1 k/uL (0-0.7); Eosinophils % (A) 1 %; HCT 28.9 % (34.0-46.0); HDW 3.24; HGB 9.5 gm/dL (11.4-16.0); Luc # (Auto) 0.03; Luc % (Auto) 0; Lymphocytes # (A) 0.6 k/uL (1.0-4.8); Lymphocytes % (A) 8 %; MCH 29.5 pg (25.0-35.0); MCHC 33.1 g/dL (31.0-37.0); MCV 89.3 fL (80.0-100.0); Mean Platelet Volume 7.1; Monocytes # (A) 0.1 k/uL (0-1.0); Monocytes % (A) 2 %; Neutrophils # (A) 7.2 k/uL (1.3-7.7); Neutrophils % (A) 90 %; RBC 3.23 m/uL (3.80-5.40); RDW 15.3 % (11.5-15.5); WBC (Perox) 8.18
[2017-02-04] MEDS: LEVOTHYROXINE 137 MCG TAB PO SCH (05:29)
[2017-02-04 05:44] LABS: Calcium 8.8 mg/dL (8.4-10.2); Magnesium 1.7 mg/dL (1.6-2.3); Phosphorous 3.2 mg/dL (2.5-4.5); Potassium 3.9 mmol/L (3.5-5.1)
[2017-02-04] MEDS ORDERED: POTASSIUM CHLORIDE ORAL LIQUID 40 MEQ/30 ML CUP NG-TUBE SCH (07:00)
[2017-02-04] MEDS: IPRATROPIUM-ALBUTEROL 3 ML NEB INHALATION SCH ×4 (07:17→20:47)
[2017-02-04] MEDS: SODIUM CHLORIDE 0.9% 1,000 ML IV SCH ×2 (08:23→10:00)
[2017-02-04] MEDS: CHLORHEXIDINE GLUCONATE 15 ML CUP MUCOUS MEM SCH (08:24)
[2017-02-04] MEDS: GABAPENTIN 100 MG CAP PO SCH ×4 (08:24→21:23)
[2017-02-04] MEDS: levETIRAcetam IV 1,000 MG in SALINE 1 100ML.BAG IVPB SCH ×2 (08:24→21:23)
[2017-02-04] MEDS: PANTOPRAZOLE 40 MG/10 ML VIAL IV SCH (08:25)
--- NOTE | 2017-02-04 10:53 | P.PN ---
Subjective Interval history. The patient is seen and evaluated and examined today in the intensive care unit. The patient was successfully extubated yesterday to 2 L of supplemental oxygen via nasal cannula. Currently the patient is resting up in bedside chair on room air. She denies any shortness of breath cough or congestion at this time. Currently has a Yuan catheter and has had good urine output. Patient has been eating and drinking without difficulty. She has been afebrile no further complaints. No further seizures. She does have some weakness present. Objective - Vital Signs Vital signs: Vital Signs Temp 99 F 02/04/17 04:00 Pulse 97 02/04/17 06:00 Resp 15 02/04/17 06:00 BP 151/78 02/04/17 06:00 Pulse Ox 97 02/04/17 06:00 Intake & Output 02/03/17 02/04/17 02/04/17 18:59 06:59 18:59 Intake Total 1350 1480 75 Output Total 3150 3350 350 Balance -1800 -1870 -275 Weight 83.6 kg 81.6 kg Intake: IV 1100 1000 75 Sodium Chloride 0.9% 1, 500 000 ml @ 125 mls/hr IV . Q8H [facility] Rx#:[id number] Sodium Chloride 0.9% 1, 600 900 75 000 ml @ 75 mls/hr IV . [id number] [facility] Rx#:[id number] levETIRAcetam IV 1,000 mg 100 In Saline 1 100ml.bag @ 400 mls/hr IVPB Q12HR [facility] Rx#:[id number] Intake, IV Titration 100 Amount levETIRAcetam IV 1,000 mg 100 In Saline 1 100ml.bag @ 400 mls/hr IVPB Q12HR [facility] Rx#:[id number] Oral 480 Tube Feeding 90 Other 60 Output: Urine 3150 3350 350 Other: Voiding Method Indwelling Catheter Indwelling Catheter # Bowel Movements 0 0 - Exam GENERAL EXAM: Alert, tired, comfortable in no apparent distress. HEAD: Normocephalic. EYES: Normal reaction of pupils, equal size. NOSE: Clear with pink turbinates. THROAT: No erythema or exudates. NECK: No masses, no JVD. CHEST: No chest wall deformity. LUNGS: Equal air entry with no crackles, wheeze, rhonchi or dullness. Bases diminished CVS: S1 and S2 normal with no audible mumurs, regular rhythm. ABDOMEN: No hepatosplenomegaly, normal bowel sounds, no guarding or rigidity. EXTREMITIES: No edema noted, pedal pulses palpable. SKIN: No rashes CENTRAL NERVOUS SYSTEM: No focal deficits, moves all 4 extremities. - Labs CBC & Chem 7: 02/04/17 05:00 02/04/17 05:00 Labs: Abnormal Lab Results - Last 24 Hours (Table) 02/03/17 02/04/17 02/04/17 Range/Units 04:40 05:00 05:00 RBC 3.23 L (3.80-5.40) m/uL Hgb 9.5 L (11.4-16.0) gm/dL Hct 28.9 L (34.0-46.0) % Lymphocytes # 0.6 L (1.0-4.8) k/uL Chloride 111 H (98-107) mmol/L Creatinine 1.70 H (0.52-1.04) mg/dL Glucose 127 H (74-99) mg/dL Iron 28 L (37-170) ug/dL TIBC 225 L (265-497) ug/dL % Saturation 12.4 L (20-50) % Ferritin 243 H (6-137) ng/mL Microbiology - Last 24 Hours (Table) 02/01/17 15:35 Blood Culture - Preliminary Blood No Growth after 48 hours 02/01/17 14:35 Gram Stain - Final Sputum Sputum Culture - Final Assessment and Plan Plan: Assessment Status epilepticus with tonic-clonic seizures on admission Acute bilateral pneumonia infiltrates, perihilar. Rule out early acute lung injury versus aspiration with left lower lobe bases atelectasis Acute febrile illness Acute kidney injury, nephrology on consult, related to previous vancomycin- induced acute kidney injury 3 weeks ago, improving History of polysubstance abuse Recent history of drug overdose Recent history of metabolic encephalopathy with possible hypoxic encephalopathy post drug overdose MRSA bacteremia History of CVA Hypothyroidism Chronic pain syndrome Plan Patient can be downgraded from the intensive care unit. Medications have been reviewed and will be continued as ordered. Antibiotics and steroids as ordered. Continue with pulmonary hygiene, coughing and deep breathing exercises , and supportive care. Initiate and encourage incentive spirometer. Supplemental oxygen to maintain oxygen saturations of 92% or better. Continue nebulizer treatments. GI and DVT prophylaxis. Continue with consult and appreciate recommendations. We will continue to monitor labs/results and adjust treatment as necessary. Further recommendations pending. I performed an examination of the patient and discussed their management with the nurse practitioner. I have reviewed the nurse practitioner's note and agree with the documented findings and plan of care.
--- NOTE | 2017-02-04 11:07 | P.PN ---
Subjective Patient is seen in follow for acute kidney injury. Renal function is improving with creatinine down to 1.7 today. She is currently sitting up in chair. Denies any chest pain or shortness of breath. Oral intake is gradually improving. No vomiting or diarrhea. Hemodynamically stable. Vital signs are stable. General: The patient appeared well nourished and normally developed. HEENT: Head exam is unremarkable. Neck is without jugular venous distension. LUNGS: Lungs are clear to auscultation and percussion. Breath sounds decreased. HEART: Rate and Rhythm are regular. First and second heart sounds normal. No murmurs, rubs or gallops. ABDOMEN: Abdominal exam reveals normal bowel sounds. Non-tender and non- distended. No evidence of peritonitis. EXTREMITITES: No clubbing, cyanosis, or edema. Objective - Vital Signs Vital signs: Vital Signs Temp 99.2 F 02/04/17 07:00 Pulse 107 H 02/04/17 10:00 Resp 53 H 02/04/17 10:00 BP 149/86 02/04/17 10:00 Pulse Ox 97 02/04/17 10:00 Intake & Output 02/03/17 02/04/17 02/04/17 18:59 06:59 18:59 Intake Total 1350 1480 400 Output Total 3150 3350 750 Balance -1800 -1870 -350 Weight 83.6 kg 81.6 kg Intake: IV 1100 1000 400 Sodium Chloride 0.9% 1, 500 000 ml @ 125 mls/hr IV . Q8H RAGHU Rx#:[id number] Sodium Chloride 0.9% 1, 600 900 300 000 ml @ 75 mls/hr IV . [id number] RAGHU Rx#:[id number] levETIRAcetam IV 1,000 mg 100 100 In Saline 1 100ml.bag @ 400 mls/hr IVPB Q12HR RAGHU Rx#:[id number] Intake, IV Titration 100 Amount levETIRAcetam IV 1,000 mg 100 In Saline 1 100ml.bag @ 400 mls/hr IVPB Q12HR RAGHU Rx#:[id number] Oral 480 Tube Feeding 90 Other 60 Output: Urine 3150 3350 750 Other: Voiding Method Indwelling Catheter Indwelling Catheter Indwelling Catheter # Bowel Movements 0 0 2 - Labs CBC & Chem 7: 02/04/17 05:00 02/04/17 05:00 Labs: Abnormal Lab Results - Last 24 Hours (Table) 02/03/17 02/04/17 02/04/17 Range/Units 04:40 05:00 05:00 RBC 3.23 L (3.80-5.40) m/uL Hgb 9.5 L (11.4-16.0) gm/dL Hct 28.9 L (34.0-46.0) % Lymphocytes # 0.6 L (1.0-4.8) k/uL Chloride 111 H (98-107) mmol/L Creatinine 1.70 H (0.52-1.04) mg/dL Glucose 127 H (74-99) mg/dL Iron 28 L (37-170) ug/dL TIBC 225 L (265-497) ug/dL % Saturation 12.4 L (20-50) % Ferritin 243 H (6-137) ng/mL Microbiology - Last 24 Hours (Table) 02/01/17 15:35 Blood Culture - Preliminary Blood No Growth after 48 hours 02/01/17 14:35 Gram Stain - Final Sputum Sputum Culture - Final Assessment and Plan Plan: Assessment: #1. Nonoliguric acute kidney injury secondary to vancomycin toxicity. Creatinine earlier this month had peaked at 3.4 and has been gradually improving. It is down to to 1.7day. Earlier urinalysis was quite benign. Her baseline creatinine is near 1. #2. Status epilepticus. #3. Anemia. Iron deficiency noted. #4. Hypokalemia secondary to renal potassium wasting with recovering renal function. Magnesium replete. stable. Plan: Decrease rate of IV fluids to 50 mL an hour. Diet to be advanced as able to tolerate. I have decreased the dose of Neurontin to 200 mg every 4 hours. Avoid nephrotoxic agents and hypotensive episodes. Ferrlecit 125 mg IV daily for 3 days. First dose today. Repeat electrolytes in the morning.
--- NOTE | 2017-02-04 13:53 | P.PN ---
Subjective Principal diagnosis: This is a 46-year-old female seen and evaluated today in the ICU. Was admitted on 02/01/2017 for seizures. Patient was on a ventilator and was extubated this morning. She is awake and alert. She is sitting in the chair watching television. She denies any pain. She states that her throat is sore from the ET tube. Patient states she has been tolerating ice chips and Jell-O. Denies any nausea or vomiting shortness of breath. Hospital course: This is a 46-year-old female who was admitted on 02/01/2017 for status epilepticus. patient was having tonic-clonic seizure activity with dilated pupils lasting 1-1/2 minutes each. Patient was given midazolam IM per paramedics. While in the emergency room the patient remained unresponsive and continued to have evidence of seizure activity. Patient was intubated for airway protection due to acute respiratory failure. patient was admitted to the intensive care unit for treatment of status epilepticus. Aspiration pneumonia was also suspected due to chest x-ray results. She was febrile at time of admission. She is currently afebrile and white count is within normal range. Patient also presented with acute kidney injury with a creatinine of 2.54 secondary to vancomycin toxicity 3 weeks ago, improving. Neurology was consult and patient was placed on IV Keppra for seizure prevention. CT of the brain was completed which showed possible left posterior scalp contusion, a hypodensity in the posterior right temporal lobe, and underlying nonspecific white matter disease. Patient was recently admitted to the hospital on January 08, 2017 for drug overdose , MRSA, right upper lobe pneumonia, and acute metabolic encephalopathy . At that time patient remained on mechanical ventilation and was being evaluated by neurology. Neurology had suggested patient suffered an anoxic brain injury and patient was not showing any signs of neurological improvement. Decision was made to make the patient hospice. In the next 48 hours patient had significantly clinically improved and the decision was made to take the patient off of hospice and discharge to [facility]. Patient was to be discharged to [facility] in [facility], and instead she left AGAINST MEDICAL ADVICE with her mother. Objective - Vital Signs Vital signs: Vital Signs Temp 99.2 F 02/04/17 07:00 Pulse 110 H 02/04/17 11:25 Resp 53 H 02/04/17 10:00 BP 149/86 02/04/17 10:00 Pulse Ox 97 02/04/17 10:00 Intake & Output 02/03/17 02/04/17 02/04/17 18:59 06:59 18:59 Intake Total 1350 1480 400 Output Total 3150 3350 750 Balance -1800 -1870 -350 Weight 83.6 kg 81.6 kg Intake: IV 1100 1000 400 Sodium Chloride 0.9% 1, 500 000 ml @ 125 mls/hr IV . Q8H RAGHU Rx#:[id number] Sodium Chloride 0.9% 1, 600 900 300 000 ml @ 75 mls/hr IV . [id number] RAGHU Rx#:[id number] levETIRAcetam IV 1,000 mg 100 100 In Saline 1 100ml.bag @ 400 mls/hr IVPB Q12HR RAGHU Rx#:[id number] Intake, IV Titration 100 Amount levETIRAcetam IV 1,000 mg 100 In Saline 1 100ml.bag @ 400 mls/hr IVPB Q12HR RAGHU Rx#:[id number] Oral 480 Tube Feeding 90 Other 60 Output: Urine 3150 3350 750 Other: Voiding Method Indwelling Catheter Indwelling Catheter Indwelling Catheter # Bowel Movements 0 0 2 - Exam GENERAL: Alert and cooperative. Appears in no acute distress. Pleasant. Patient's speech appears slow and delayed. RESPIRATORY: Lungs clear bilaterally. No use of accessory muscles. Patient maintaining oxygen saturation greater than 92% on room air. CARDIOVASCULAR: S1 and S2 noted. No murmurs auscultated. No JVD noted. EXTREMITIES: No edema noted. Palpable pedal pulses +2. ABDOMEN: No distention noted. Abdomen soft and round. Normal active bowel sounds auscultated 4 quadrants. No pain or tenderness noted upon palpation. - Labs CBC & Chem 7: 02/04/17 05:00 02/04/17 05:00 Labs: Abnormal Lab Results - Last 24 Hours (Table) 02/03/17 02/04/17 02/04/17 Range/Units 04:40 05:00 05:00 RBC 3.23 L (3.80-5.40) m/uL Hgb 9.5 L (11.4-16.0) gm/dL Hct 28.9 L (34.0-46.0) % Lymphocytes # 0.6 L (1.0-4.8) k/uL Chloride 111 H (98-107) mmol/L Creatinine 1.70 H (0.52-1.04) mg/dL Glucose 127 H (74-99) mg/dL Iron 28 L (37-170) ug/dL TIBC 225 L (265-497) ug/dL % Saturation 12.4 L (20-50) % Ferritin 243 H (6-137) ng/mL Microbiology - Last 24 Hours (Table) 02/01/17 15:35 Blood Culture - Preliminary Blood No Growth after 48 hours 02/01/17 14:35 Gram Stain - Final Sputum Sputum Culture - Final Assessment and Plan (1) Acute metabolic encephalopathy Status: Acute (2) Aspiration pneumonia Narrative/Plan: Chest x-ray shows acute bilateral pneumonia infiltrates, perihilar. Status: Acute (3) Overdose Narrative/Plan: Present on admission Status: Acute (4) Respiratory failure Narrative/Plan: Patient was intubated for airway protection due to seizures. Status: Acute (5) Acute kidney injury Narrative/Plan: Due to vancomycin toxicity. Renal function improving. Creatinine is 1.7 today Status: Acute Plan: Patient to be downgraded to a medical floor today Continue to monitor kidney function. Avoid nephrotoxic agents. Advance diet as tolerated Monitor vital signs and address as indicated DVT/GI prophylaxis Monitor for seizure activity Discharge planning
[2017-02-04] MEDS: MORPHINE SULFATE 2 MG/ML SYRINGE IVP PRN (16:37)
[2017-02-04 18:41] VITALS: RESP 18
[2017-02-05] MEDS: methylPREDNISolone SOD SUCCI 40 MG/ML 1 ML VIAL IV SCH ×3 (00:54→17:50)
[2017-02-05] MEDS: HEPARIN SODIUM,PORCINE 5,000 UNIT/ML 1 ML VIAL SQ SCH ×4 (00:54→23:51)
[2017-02-05] MEDS: SODIUM CHLORIDE 0.9% 1,000 ML IV SCH (05:22)
[2017-02-05 05:26] LABS: Anisocytosis Slight; Basophils % (A) 0 %; CH 30.4; CHCM 33.6; Eosinophils % (A) 0 %; HCT 29.4 % (34.0-46.0); HDW 3.09; HGB 9.5 gm/dL (11.4-16.0); Luc # (Auto) 0.13; Luc % (Auto) 1; Lymphocytes # (A) 1.5 k/uL (1.0-4.8); Lymphocytes % (A) 10 %; MCH 29.5 pg (25.0-35.0); MCHC 32.3 g/dL (31.0-37.0); MCV 91.1 fL (80.0-100.0); Mean Platelet Volume 7.3; Monocytes # (A) 0.8 k/uL (0-1.0); Monocytes % (A) 5 %; Neutrophils # (A) 12.8 k/uL (1.3-7.7); Neutrophils % (A) 84 %; RBC 3.22 m/uL (3.80-5.40); RDW 16.1 % (11.5-15.5); WBC 15.2 k/uL (3.8-10.6)
[2017-02-05 05:39] LABS: Calcium 8.5 mg/dL (8.4-10.2); Magnesium 1.5 mg/dL (1.6-2.3); Phosphorous 2.5 mg/dL (2.5-4.5); Potassium 3.9 mmol/L (3.5-5.1)
[2017-02-05] MEDS: LEVOTHYROXINE 137 MCG TAB PO SCH (05:58)
[2017-02-05] MEDS: PANTOPRAZOLE 40 MG TABLET PO SCH (05:58)
--- NOTE | 2017-02-05 07:28 | XR ---
EXAMINATION TYPE: XR chest 2V DATE OF EXAM: 02/05/2017 COMPARISON: 02/03/2017 HISTORY: 38 year-old female shortness of breath TECHNIQUE: Frontal and lateral views FINDINGS: The heart is normal size. Aorta within normal limits. Interstitial densities with patchy bibasilar opacities and trace effusions. Some minimal fluid thicke ns the minor fissure. IMPRESSION: Developing interstitial lung disease with patchy bibasilar opacities and trace effusions. Correlate f or possible etiologies including developing CHF.
[2017-02-05] MEDS: GABAPENTIN 100 MG CAP PO SCH ×4 (08:42→23:23)
[2017-02-05] MEDS: levETIRAcetam IV 1,000 MG in SALINE 1 100ML.BAG IVPB SCH ×2 (08:42→21:31)
[2017-02-05] MEDS: IPRATROPIUM-ALBUTEROL 3 ML NEB INHALATION SCH ×4 (09:16→20:30)
--- NOTE | 2017-02-05 09:49 | P.PN ---
Subjective Principal diagnosis: This is a 46-year-old female seen and evaluated this morning on rounds. Patient was admitted on 02/01/2017 for seizures. Patient was extubated yesterday. Patient has been transferred out of the ICU. Patient is more awake and alert today and engaging in more conversation than yesterday. She is sitting in bed watching television. Patient is without complaints. Patient states her throat is feeling better and is not as sore as yesterday. Patient is tolerating oral diet well without any nausea or vomiting. Denies shortness of breath or chest pain. Patient requesting to go to [facility] upon discharge. Patient has legal guardian. Spoke with Katie, registered nurse hh case manager, who states she will speak with legal guardian and continue to work on discharge planning. Hospital course: This is a 46-year-old female who was admitted on 02/01/2017 for status epilepticus. patient was having tonic-clonic seizure activity with dilated pupils lasting 1-1/2 minutes each. Patient was given midazolam IM per paramedics. While in the emergency room the patient remained unresponsive and continued to have evidence of seizure activity. Patient was intubated for airway protection due to acute respiratory failure. patient was admitted to the intensive care unit for treatment of status epilepticus. Aspiration pneumonia was also suspected due to chest x-ray results. She was febrile at time of admission. She is currently afebrile and white count is within normal range. Patient also presented with acute kidney injury with a creatinine of 2.54 secondary to vancomycin toxicity 3 weeks ago, improving. Neurology was consult and patient was placed on IV Keppra for seizure prevention. CT of the brain was completed which showed possible left posterior scalp contusion, a hypodensity in the posterior right temporal lobe, and underlying nonspecific white matter disease. Patient was recently admitted to the hospital on January 08, 2017 for drug overdose , MRSA, right upper lobe pneumonia, and acute metabolic encephalopathy . At that time patient remained on mechanical ventilation and was being evaluated by neurology. Neurology had suggested patient suffered an anoxic brain injury and patient was not showing any signs of neurological improvement. Decision was made to make the patient hospice. In the next 48 hours patient had significantly clinically improved and the decision was made to take the patient off of hospice and discharge to [facility]. Patient was to be discharged to [facility], and instead she left AGAINST MEDICAL ADVICE with her mother. Objective - Vital Signs Vital signs: Vital Signs Temp 97.0 F L 02/05/17 08:49 Pulse 112 H 02/05/17 08:49 Resp 18 02/05/17 08:49 BP 166/84 02/05/17 08:49 Pulse Ox 95 02/05/17 08:49 Intake & Output 02/04/17 02/05/17 02/05/17 18:59 06:59 18:59 Intake Total 1160 400 Output Total 2140 Balance -980 400 Weight 80 kg Intake: IV 800 400 Sodium Chloride 0.9% 1, 700 400 000 ml @ 50 mls/hr IV . Q20H RAGHU Rx#:[id number] levETIRAcetam IV 1,000 mg 100 In Saline 1 100ml.bag @ 400 mls/hr IVPB Q12HR RAGHU Rx#:[id number] Oral 360 Output: Urine 2140 Uretheral (Yuan) 200 Other: Voiding Method Indwelling Catheter Indwelling Catheter Toilet # Voids 1 # Bowel Movements 2 - Exam GENERAL: Alert and cooperative. Appears in no acute distress. Pleasant. RESPIRATORY: Lungs clear bilaterally. No use of accessory muscles. Patient maintaining oxygen saturation greater than 92% on room air. CARDIOVASCULAR: S1 and S2 noted. No murmurs auscultated. No JVD noted. EXTREMITIES: No edema noted. Palpable pedal pulses +2. ABDOMEN: No distention noted. Abdomen soft and round. Normal active bowel sounds auscultated 4 quadrants. No pain or tenderness noted upon palpation. - Labs CBC & Chem 7: 02/05/17 05:10 02/05/17 05:10 Labs: Abnormal Lab Results - Last 24 Hours (Table) 02/05/17 02/05/17 Range/Units 05:10 05:10 WBC 15.2 H (3.8-10.6) k/uL RBC 3.22 L (3.80-5.40) m/uL Hgb 9.5 L (11.4-16.0) gm/dL Hct 29.4 L (34.0-46.0) % RDW 16.1 H (11.5-15.5) % Neutrophils # 12.8 H (1.3-7.7) k/uL Chloride 110 H (98-107) mmol/L BUN 19 H (7-17) mg/dL Creatinine 1.48 H (0.52-1.04) mg/dL Glucose 108 H (74-99) mg/dL Magnesium 1.5 L (1.6-2.3) mg/dL Microbiology - Last 24 Hours (Table) 02/01/17 15:35 Blood Culture - Preliminary Blood No Growth after 72 hours Assessment and Plan (1) Acute metabolic encephalopathy Narrative/Plan: Present on admission, due to polysubstance drug abuse Status: Acute (2) Aspiration pneumonia Narrative/Plan: Chest x-ray shows acute bilateral pneumonia infiltrates, perihilar from 2016. Patient off antibiotics. Status: Acute (3) Overdose Narrative/Plan: Present on admission Status: Acute (4) Acute kidney injury Narrative/Plan: Present on admission, Due to vancomycin toxicity. Renal function improving. Status: Acute (5) Leukocytosis, unspecified Narrative/Plan: Consult placed to infectious disease. Afebrile. Blood, sputum, and urine cultures negative. Status: Acute (6) Acute respiratory failure with hypoxemia Narrative/Plan: Patient was intubated for airway protection due to seizures. Patient has since been extubated. Status: Acute Plan: Will replace magnesium. Recheck labs following replacement. Continue to monitor kidney function. Avoid nephrotoxic agents. Creatinine trending downward. Monitor vital signs and address as indicated Consult Dr. Marquez for leukocytosis. WBC elevated. Patient on IV steroids. Dose decreased today by pulmonary. DVT/GI prophylaxis Monitor for seizure activity Pulmonary on consult. Appreciate any recommendations. Chest x-ray this morning shows interstitial densities with patchy bibasilar opacities and trace effusions with possibility of developing CHF. Discharge planning. [facility] Case management to speak with legal guardian regarding placement at time of discharge. The above impression and plan of care have been discussed and directed by signing physician. Kristine Hudson, nurse practitioner, acting as scribe for signing physician.
[2017-02-05] MEDS: MAGNESIUM SULFATE-D5W PMX 1 GM in DEXTROSE/WATER 1 100ML.BAG IVPB SCH ×4 (10:35→14:08)
--- NOTE | 2017-02-05 10:59 | P.PN ---
Subjective Interval history. 02/04/17- The patient is seen and evaluated and examined today in the intensive care unit. The patient was successfully extubated yesterday to 2 L of supplemental oxygen via nasal cannula. Currently the patient is resting up in bedside chair on room air. She denies any shortness of breath cough or congestion at this time. Currently has a Yuan catheter and has had good urine output. Patient has been eating and drinking without difficulty. She has been afebrile no further complaints. No further seizures. She does have some weakness present. 02/05/17- patient is being seen in evaluated and examined today on the selective care unit. Patient is more alert and awake today. Continues to have occasional shortness of breath with exertion. Denies any cough or congestion today. Patient has safety center at bedside. Currently being worked up to go to rehab facility upon discharge. Labs and reports have been reviewed, patient did have a slight increase in her white blood cell count. Infectious disease was consulted. Objective - Vital Signs Vital signs: Vital Signs Temp 97.0 F L 02/05/17 08:49 Pulse 112 H 02/05/17 08:49 Resp 18 02/05/17 08:49 BP 166/84 02/05/17 08:49 Pulse Ox 95 02/05/17 08:49 Intake & Output 02/04/17 02/05/17 02/05/17 18:59 06:59 18:59 Intake Total 1160 400 Output Total 2140 Balance -980 400 Weight 80 kg Intake: IV 800 400 Sodium Chloride 0.9% 1, 700 400 000 ml @ 50 mls/hr IV . Q20H RAGHU Rx#:[id number] levETIRAcetam IV 1,000 mg 100 In Saline 1 100ml.bag @ 400 mls/hr IVPB Q12HR RAGHU Rx#:[id number] Oral 360 Output: Urine 2140 Uretheral (Yuan) 200 Other: Voiding Method Indwelling Catheter Indwelling Catheter Toilet # Voids 1 # Bowel Movements 2 - Exam GENERAL EXAM: Alert, tired, comfortable in no apparent distress. HEAD: Normocephalic. EYES: Normal reaction of pupils, equal size. NOSE: Clear with pink turbinates. THROAT: No erythema or exudates. NECK: No masses, no JVD. CHEST: No chest wall deformity. LUNGS: Equal air entry with no crackles, wheeze, rhonchi or dullness. Bases diminished CVS: S1 and S2 normal with no audible mumurs, regular rhythm. ABDOMEN: No hepatosplenomegaly, normal bowel sounds, no guarding or rigidity. EXTREMITIES: No edema noted, pedal pulses palpable. SKIN: No rashes CENTRAL NERVOUS SYSTEM: No focal deficits, moves all 4 extremities. - Labs CBC & Chem 7: 02/05/17 05:10 02/05/17 05:10 Labs: Abnormal Lab Results - Last 24 Hours (Table) 02/05/17 02/05/17 Range/Units 05:10 05:10 WBC 15.2 H (3.8-10.6) k/uL RBC 3.22 L (3.80-5.40) m/uL Hgb 9.5 L (11.4-16.0) gm/dL Hct 29.4 L (34.0-46.0) % RDW 16.1 H (11.5-15.5) % Neutrophils # 12.8 H (1.3-7.7) k/uL Chloride 110 H (98-107) mmol/L BUN 19 H (7-17) mg/dL Creatinine 1.48 H (0.52-1.04) mg/dL Glucose 108 H (74-99) mg/dL Magnesium 1.5 L (1.6-2.3) mg/dL Microbiology - Last 24 Hours (Table) 02/01/17 15:35 Blood Culture - Preliminary Blood No Growth after 72 hours Assessment and Plan Plan: Assessment Status epilepticus with tonic-clonic seizures on admission Acute bilateral pneumonia infiltrates, perihilar. Rule out early acute lung injury versus aspiration with left lower lobe bases atelectasis Acute febrile illness Acute kidney injury, nephrology on consult, related to previous vancomycin- induced acute kidney injury 3 weeks ago, improving History of polysubstance abuse Recent history of drug overdose Recent history of metabolic encephalopathy with possible hypoxic encephalopathy post drug overdose MRSA bacteremia History of CVA Hypothyroidism Chronic pain syndrome Plan Medications have been reviewed and will be continued as ordered. Antibiotics and steroids as ordered. Steroids have been decreased. Continue with pulmonary hygiene, coughing and deep breathing exercises, and supportive care. Patient has been pulling volumes on her incentive spirometer of 1750. Supplemental oxygen to maintain oxygen saturations of 92% or better. Continue nebulizer treatments. GI and DVT prophylaxis. Continue with consult and appreciate recommendations. We will continue to monitor labs/results and adjust treatment as necessary. Further recommendations pending. I performed an examination of the patient and discussed their management with the nurse practitioner. I have reviewed the nurse practitioner's note and agree with the documented findings and plan of care.
[2017-02-05] MEDS ORDERED: methylPREDNISolone SOD SUCCI 40 MG/ML 1 ML VIAL IV SCH (11:00)
--- NOTE | 2017-02-05 11:05 | P.PN ---
Subjective Patient is seen in follow for acute kidney injury. Renal function is improving with creatinine down to 1.48 today. She is currently sitting up in bed. Denies any chest pain or shortness of breath. Oral intake is gradually improving. No vomiting or diarrhea. Hemodynamically stable. Patient had developed vancomycin toxicity last month and at that time her creatinine had peaked at 3.4. She is currently off all antibiotics. Vital signs are stable. General: The patient appeared well nourished and normally developed. HEENT: Head exam is unremarkable. Neck is without jugular venous distension. LUNGS: Lungs are clear to auscultation and percussion. Breath sounds decreased. HEART: Rate and Rhythm are regular. First and second heart sounds normal. No murmurs, rubs or gallops. ABDOMEN: Abdominal exam reveals normal bowel sounds. Non-tender and non- distended. No evidence of peritonitis. EXTREMITITES: No clubbing, cyanosis, or edema. Objective - Vital Signs Vital signs: Vital Signs Temp 97.0 F L 02/05/17 08:49 Pulse 112 H 02/05/17 08:49 Resp 18 02/05/17 08:49 BP 166/84 02/05/17 08:49 Pulse Ox 95 02/05/17 08:49 Intake & Output 02/04/17 02/05/17 02/05/17 18:59 06:59 18:59 Intake Total 1160 400 Output Total 2140 Balance -980 400 Weight 80 kg Intake: IV 800 400 Sodium Chloride 0.9% 1, 700 400 000 ml @ 50 mls/hr IV . Q20H RAGHU Rx#:[id number] levETIRAcetam IV 1,000 mg 100 In Saline 1 100ml.bag @ 400 mls/hr IVPB Q12HR RAGHU Rx#:[id number] Oral 360 Output: Urine 2140 Uretheral (Yuan) 200 Other: Voiding Method Indwelling Catheter Indwelling Catheter Toilet # Voids 1 # Bowel Movements 2 - Labs CBC & Chem 7: 02/05/17 05:10 02/05/17 05:10 Labs: Abnormal Lab Results - Last 24 Hours (Table) 02/05/17 02/05/17 Range/Units 05:10 05:10 WBC 15.2 H (3.8-10.6) k/uL RBC 3.22 L (3.80-5.40) m/uL Hgb 9.5 L (11.4-16.0) gm/dL Hct 29.4 L (34.0-46.0) % RDW 16.1 H (11.5-15.5) % Neutrophils # 12.8 H (1.3-7.7) k/uL Chloride 110 H (98-107) mmol/L BUN 19 H (7-17) mg/dL Creatinine 1.48 H (0.52-1.04) mg/dL Glucose 108 H (74-99) mg/dL Magnesium 1.5 L (1.6-2.3) mg/dL Microbiology - Last 24 Hours (Table) 02/01/17 15:35 Blood Culture - Preliminary Blood No Growth after 72 hours Assessment and Plan Plan: Assessment: #1. Nonoliguric acute kidney injury secondary to vancomycin toxicity. Creatinine earlier this month had peaked at 3.4 and has been gradually improving. It is down to to 1.48 today. Earlier urinalysis was quite benign. Her baseline creatinine is near 1. #2. Status epilepticus. #3. Anemia. Iron deficiency noted. #4. Hypokalemia secondary to renal potassium wasting with recovering renal function. Magnesium replete. Stable. Plan: Hep-Lock IV fluids. Encouraged oral intake. I have decreased the dose of Neurontin to 200 mg every 4 hours. Avoid nephrotoxic agents and hypotensive episodes. Ferrlecit 125 mg IV daily for 3 days. Second dose today. Repeat electrolytes in the morning.
[2017-02-05 11:13] VITALS: BMI 31.2
[2017-02-05] MEDS: SODIUM FERRIC GLUCONAT-SUCROSE 125 MG in SODIUM CHLORIDE 0.9% 100 ML IVPB SCH (15:53)
[2017-02-05 18:08] LABS: Amorphous Sediment,Urine Occasional /hpf; Appearance,Urine Cloudy (Clear); Bacteria,Urine Many /hpf; Bilirubin,Urine Negative (Negative); Glucose,Urine (UA) Negative (Negative); Ketones,Urine Negative (Negative); Leukocyte Esterase,Urine Large (Negative); Mucus,Urine Rare /hpf; Nitrite,Urine Positive (Negative); PH, Urine 7.5 (5.0-8.0); Particle Count 20813; Protein,Urine Negative (Negative); RBC,Urine 2 /hpf (0-5); Specific Gravity,Urine 1.005 (1.001-1.035); Squamous Epithelial Cell,Urine 1 /hpf (0-4); UA Billing (MACRO vs. MICRO) MICRO; Urobilinogen,Urine <2.0 mg/dL (<2.0); WBC,Urine 114 /hpf (0-5)
[2017-02-05] MEDS: MORPHINE SULFATE 2 MG/ML SYRINGE IVP PRN (21:37)
[2017-02-05] MEDS: AMPICILLIN-SULBACTAM 3 GM in SODIUM CHLORIDE 0.9% 100 ML IVPB SCH (23:51)
[2017-02-06 05:25] LABS: Anisocytosis Slight; Basophils % (A) 0 %; CH 30.5; CHCM 33.6; Eosinophils # (A) 0.1 k/uL (0-0.7); Eosinophils % (A) 1 %; HGB 10.7 gm/dL (11.4-16.0); Luc # (Auto) 0.11; Luc % (Auto) 1; Lymphocytes # (A) 1.4 k/uL (1.0-4.8); Lymphocytes % (A) 10 %; MCH 29.5 pg (25.0-35.0); MCHC 32.4 g/dL (31.0-37.0); MCV 91.1 fL (80.0-100.0); Mean Platelet Volume 7.1; Monocytes # (A) 0.6 k/uL (0-1.0); Monocytes % (A) 4 %; Neutrophils # (A) 11.5 k/uL (1.3-7.7); Neutrophils % (A) 84 %; RBC 3.62 m/uL (3.80-5.40); RDW 16.2 % (11.5-15.5); WBC 13.7 k/uL (3.8-10.6); WBC (Perox) 13.74
[2017-02-06] MEDS: AMPICILLIN-SULBACTAM 3 GM in SODIUM CHLORIDE 0.9% 100 ML IVPB SCH ×2 (05:31→11:51)
[2017-02-06] MEDS: methylPREDNISolone SOD SUCCI 40 MG/ML 1 ML VIAL IV SCH (05:31)
[2017-02-06] MEDS: MORPHINE SULFATE 2 MG/ML SYRINGE IVP PRN ×2 (05:31→12:03)
[2017-02-06 05:40] LABS: Calcium 8.8 mg/dL (8.4-10.2); Magnesium 2.2 mg/dL (1.6-2.3); Potassium 4.3 mmol/L (3.5-5.1)
[2017-02-06] MEDS: LEVOTHYROXINE 137 MCG TAB PO SCH (05:47)
[2017-02-06] MEDS: PANTOPRAZOLE 40 MG TABLET PO SCH (05:47)
[2017-02-06] MEDS: GABAPENTIN 100 MG CAP PO SCH ×2 (08:07→11:52)
[2017-02-06] MEDS: levETIRAcetam IV 1,000 MG in SALINE 1 100ML.BAG IVPB SCH (08:07)
[2017-02-06] MEDS: HEPARIN SODIUM,PORCINE 5,000 UNIT/ML 1 ML VIAL SQ SCH (08:07)
[2017-02-06] MEDS: IPRATROPIUM-ALBUTEROL 3 ML NEB INHALATION SCH ×2 (08:19→11:46)
[2017-02-06] MEDS: SODIUM FERRIC GLUCONAT-SUCROSE 125 MG in SODIUM CHLORIDE 0.9% 100 ML IVPB SCH (10:08)
[2017-02-06] MEDS ORDERED: amLODIPine 5 MG TAB PO SCH (10:45)
--- NOTE | 2017-02-06 10:47 | P.PN ---
Subjective Patient is seen in follow for acute kidney injury. Renal function is improving with creatinine down to 1.40 today. She is currently resting in bed. Denies any chest pain or shortness of breath. Oral intake is gradually improving. No vomiting or diarrhea. Hemodynamically stable. Patient had developed vancomycin toxicity last month and at that time her creatinine had peaked at 3.4. She is currently off all antibiotics. Vital signs are stable. General: The patient appeared well nourished and normally developed. HEENT: Head exam is unremarkable. Neck is without jugular venous distension. LUNGS: Lungs are clear to auscultation and percussion. Breath sounds decreased. HEART: Rate and Rhythm are regular. First and second heart sounds normal. No murmurs, rubs or gallops. ABDOMEN: Abdominal exam reveals normal bowel sounds. Non-tender and non- distended. No evidence of peritonitis. EXTREMITITES: No clubbing, cyanosis, or edema. Objective - Vital Signs Vital signs: Vital Signs Temp 97 F L 02/06/17 08:00 Pulse 84 02/06/17 08:30 Resp 18 02/06/17 08:00 BP 182/90 02/06/17 08:00 Pulse Ox 97 02/06/17 08:00 Intake & Output 02/05/17 02/06/17 02/06/17 18:59 06:59 18:59 Intake Total 600 200 360 Balance 600 200 360 Weight 80 kg 78.3 kg Intake: IV 200 Ampicillin-Sulbactam 3 gm 100 In Sodium Chloride 0.9% 100 ml @ 100 mls/hr IVPB Q6HR RAGHU Rx#:[id number] levETIRAcetam IV 1,000 mg 100 In Saline 1 100ml.bag @ 400 mls/hr IVPB Q12HR RAGHU Rx#:[id number] Oral 600 360 Other: Voiding Method Toilet Toilet Toilet # Voids 1 - Labs CBC & Chem 7: 02/06/17 05:15 02/06/17 05:15 Labs: Abnormal Lab Results - Last 24 Hours (Table) 02/05/17 02/06/17 02/06/17 Range/Units 17:48 05:15 05:15 WBC 13.7 H (3.8-10.6) k/uL RBC 3.62 L (3.80-5.40) m/uL Hgb 10.7 L (11.4-16.0) gm/dL Hct 33.0 L (34.0-46.0) % RDW 16.2 H (11.5-15.5) % Neutrophils # 11.5 H (1.3-7.7) k/uL BUN 26 H (7-17) mg/dL Creatinine 1.40 H (0.52-1.04) mg/dL Glucose 114 H (74-99) mg/dL Urine Appearance Cloudy H (Clear) Urine Blood Trace H (Negative) Urine Nitrite Positive H (Negative) Ur Leukocyte Esterase Large H (Negative) Urine WBC 114 H (0-5) /hpf Amorphous Sediment Occasional H (None) /hpf Urine Bacteria Many H (None) /hpf Urine Mucus Rare H (None) /hpf Microbiology - Last 24 Hours (Table) 02/05/17 17:48 Urine Culture - Preliminary Urine,Voided 02/01/17 15:35 Blood Culture - Preliminary Blood No Growth after 96 hours Assessment and Plan Plan: Assessment: #1. Nonoliguric acute kidney injury secondary to vancomycin toxicity. Creatinine earlier this month had peaked at 3.4 and has been gradually improving. It is down to to 1.40 today. Urinalysis quite benign. Her baseline creatinine is near 1. #2. Status epilepticus. #3. Anemia. Iron deficiency noted. #4. Hypokalemia secondary to renal potassium wasting with recovering renal function. Magnesium replete. Stable. #5. Benign hypertension. Uncontrolled. Plan: Remains off all IV fluids. Encouraged oral intake. I have decreased the dose of Neurontin to 200 mg every 4 hours. Avoid nephrotoxic agents and hypotensive episodes. Ferrlecit 125 mg IV daily for 3 days. Third dose today. Add amlodipine 5 mg once daily. Repeat electrolytes in the morning.
--- NOTE | 2017-02-06 11:53 | P.PN ---
Subjective Interval history. 02/04/17- The patient is seen and evaluated and examined today in the intensive care unit. The patient was successfully extubated yesterday to 2 L of supplemental oxygen via nasal cannula. Currently the patient is resting up in bedside chair on room air. She denies any shortness of breath cough or congestion at this time. Currently has a Yuan catheter and has had good urine output. Patient has been eating and drinking without difficulty. She has been afebrile no further complaints. No further seizures. She does have some weakness present. 02/05/17- patient is being seen in evaluated and examined today on the selective care unit. Patient is more alert and awake today. Continues to have occasional shortness of breath with exertion. Denies any cough or congestion today. Patient has safety center at bedside. Currently being worked up to go to rehab facility upon discharge. Labs and reports have been reviewed, patient did have a slight increase in her white blood cell count. Infectious disease was consulted. 02/06/17- patient is being seen in evaluated and examined today on selective care unit. Patient's breathing is much better today. She denies any shortness of breath today. No cough or congestion noted. Continues to have safety center at bedside. Currently discharge planning is taken patient to have the patient go to an extended care facility if possible. Patient would benefit from ECF. She is afebrile, no overnight events. Steroids continue to be decreased and she is tolerating that well. Objective - Vital Signs Vital signs: Vital Signs Temp 97 F L 02/06/17 08:00 Pulse 84 02/06/17 08:30 Resp 18 02/06/17 08:00 BP 182/90 02/06/17 08:00 Pulse Ox 97 02/06/17 08:00 Intake & Output 02/05/17 02/06/17 02/06/17 18:59 06:59 18:59 Intake Total 600 200 360 Balance 600 200 360 Weight 80 kg 78.3 kg Intake: IV 200 Ampicillin-Sulbactam 3 gm 100 In Sodium Chloride 0.9% 100 ml @ 100 mls/hr IVPB Q6HR RAGHU Rx#:[id number] levETIRAcetam IV 1,000 mg 100 In Saline 1 100ml.bag @ 400 mls/hr IVPB Q12HR RAGHU Rx#:[id number] Oral 600 360 Other: Voiding Method Toilet Toilet Toilet # Voids 1 - Exam GENERAL EXAM: Alert, tired, comfortable in no apparent distress. HEAD: Normocephalic. EYES: Normal reaction of pupils, equal size. NOSE: Clear with pink turbinates. THROAT: No erythema or exudates. NECK: No masses, no JVD. CHEST: No chest wall deformity. LUNGS: Equal air entry with no crackles, wheeze, rhonchi or dullness. Bases diminished CVS: S1 and S2 normal with no audible mumurs, regular rhythm. ABDOMEN: No hepatosplenomegaly, normal bowel sounds, no guarding or rigidity. EXTREMITIES: No edema noted, pedal pulses palpable. SKIN: No rashes CENTRAL NERVOUS SYSTEM: No focal deficits, moves all 4 extremities. - Labs CBC & Chem 7: 02/06/17 05:15 02/06/17 05:15 Labs: Abnormal Lab Results - Last 24 Hours (Table) 02/05/17 02/06/17 02/06/17 Range/Units 17:48 05:15 05:15 WBC 13.7 H (3.8-10.6) k/uL RBC 3.62 L (3.80-5.40) m/uL Hgb 10.7 L (11.4-16.0) gm/dL Hct 33.0 L (34.0-46.0) % RDW 16.2 H (11.5-15.5) % Neutrophils # 11.5 H (1.3-7.7) k/uL BUN 26 H (7-17) mg/dL Creatinine 1.40 H (0.52-1.04) mg/dL Glucose 114 H (74-99) mg/dL Urine Appearance Cloudy H (Clear) Urine Blood Trace H (Negative) Urine Nitrite Positive H (Negative) Ur Leukocyte Esterase Large H (Negative) Urine WBC 114 H (0-5) /hpf Amorphous Sediment Occasional H (None) /hpf Urine Bacteria Many H (None) /hpf Urine Mucus Rare H (None) /hpf Microbiology - Last 24 Hours (Table) 02/05/17 17:48 Urine Culture - Preliminary Urine,Voided 02/01/17 15:35 Blood Culture - Preliminary Blood No Growth after 96 hours Assessment and Plan Plan: Assessment Status epilepticus with tonic-clonic seizures on admission Acute bilateral pneumonia infiltrates, perihilar. Rule out early acute lung injury versus aspiration with left lower lobe bases atelectasis Acute febrile illness Acute kidney injury, nephrology on consult, related to previous vancomycin- induced acute kidney injury 3 weeks ago, improving History of polysubstance abuse Recent history of drug overdose Recent history of metabolic encephalopathy with possible hypoxic encephalopathy post drug overdose MRSA bacteremia History of CVA Hypothyroidism Chronic pain syndrome Plan Medications have been reviewed and will be continued as ordered. Antibiotics and steroids as ordered. Steroids have been decreased and switched to oral. Continue with pulmonary hygiene, coughing and deep breathing exercises, and supportive care. Patient has been pulling volumes on her incentive spirometer of 1750. Supplemental oxygen to maintain oxygen saturations of 92% or better. Continue nebulizer treatments. GI and DVT prophylaxis. Continue with consult and appreciate recommendations. We will continue to monitor labs/results and adjust treatment as necessary. Further recommendations pending. I performed an examination of the patient and discussed their management with the nurse practitioner. I have reviewed the nurse practitioner's note and agree with the documented findings and plan of care.
--- NOTE | 2017-02-06 13:17 | CONS ---
DATE OF CONSULTATION: 02/05/2017 REASON FOR CONSULTATION: Worsening leukocytosis. HISTORY OF PRESENT ILLNESS: The patient is a 46-year-old female who did have recent prolonged stay at this facility. She was just discharged the day prior to the patient being brought back to the hospital. Apparently, the patient did have a witnessed seizure at home, generalized tonic clonic for which EMS was called in. The patient did receive IM ( ) and has been brought into the ER where the patient ended up having intubation and placed on mechanical ventilation. The patient did have x-ray that did show bilateral ( ) infiltrate. She did have fever on presentation to the hospital. The patient has been evaluated by primary and pulmonary services. The patient treated with Zosyn. However, subsequent antibiotic has been discontinued. The patients only fever was 103 degrees on admission. No fever recorded since that. The patient did have ( ) did normalize to 9.56 ( ) over the next three days. However, the white count jumped up to 15.2. Hence, ID was consulted today for further recommendations regarding antibiotic therapy. The patient is currently extubated, has been transferred out of the ICU. The patient denies any significant chest pain or shortness of breath ( ). Some cough but not bringing up any sputum. No abdominal pain. No nausea or vomiting and no diarrhea. REVIEW OF SYSTEMS: Constitutional: Positive for weakness and fever on admission that has resolved. EYES: No complaint. HEENT: No complaint. Respiratory: As per history of present illness. Cardiovascular: No complaint. : No complaint. Gastrointestinal: No complaint. Musculoskeletal: No complaint. Integumentary: No complaint. Psychological: No complaint. Endocrine: No complaint. Neurological: As per HPI. Past medical history significant for hypothyroidism, seizure disorder, aspiration pneumonia, MRSA bacteremia. Past surgical history: Tubal ligation, appendectomy. SOCIAL HISTORY: Possible for smoking and drinking. No drug use. FAMILY HISTORY: No pertinent findings. ALLERGIES: ACETAMINOPHEN AND ASPIRIN. Medications include the patient is currently on: 1. DuoNeb. 2. Iron sulfate. 3. Neurontin. 4. Heparin. 5. Lamictal. 6. Synthroid. 7. Ativan. 8. Solu-Medrol. 9. Protonix. On examination, blood pressure is 170/80 with a pulse of 100. Temperature 97.04. She is 95% on room air. General description is a middle age female up in bed, in no distress. No tachypnea or accessory muscles of respiration use. HEENT: Examination shows slight pallor and no scleral icterus. Oral mucosa membranes dry. NECK: Trachea is central. No thyromegaly. LUNGS: Unlabored breathing. Decreased breath sounds at the base. No wheeze. HEART: S1, S2 regular rate and rhythm. ABDOMEN: Soft. No tenderness. No guarding and no rigidity. EXTREMITIES: No edema of the feet. SKIN: No rash or mass palpable. NEUROLOGICALLY: The patient is awake, alert and oriented times two. Mood and affect normal. LABS: Hemoglobin 9.5, white count up to 15.2, BUN 19, creatinine 1.48. She did have a chest x-ray this morning which shows developing interstitial lung disease with bibasilar opacity and trace effusion. DIAGNOSTIC IMPRESSION AND PLAN: The patient with elevated white count in a patient admitted to the hospital with generalized tonic clonic seizures. She did have a fever. Elevated white count on admission with question of likely aspiration pneumonitis to be at the top of the list, now apparently with worsening of the white count after antibiotic has been discontinued, for unclear reasons. The patient with no other clinical focus of infection. No significant abdominal pain, ( ) cellulitis. PLAN: 1. We will check blood cultures times two and check UA and culture. 2. We will empirically add Unasyn 3 gm q6 as the patient did have sputum culture this admission that has been negative for any resistant pathogen. 3. We will follow-up on the clinical condition and cultures to further adjust medication if needed. Thank you for this consultation. We will follow this patient along with you. CLARI
[2017-02-06 13:26] VITALS: PULSE 95; TEMP 97.5
--- NOTE | 2017-02-06 14:06 | P.DS ---
Providers Date of admission: 02/01/17 14:42 Expected date of discharge: 02/06/17 Attending physician: Philip Andino Consults: 02/01/17 14:38 Consult Physician Urgent Consulting Provider: Brian To Consult Reason/Comments: Seizure Do you want consulting provider notified?: Already Contacted 02/02/17 23:25 Consult Physician Routine Consulting Provider: Mamta Villar Consult Reason/Comments: renal in Do you want consulting provider notified?: Yes 02/04/17 13:34 Consult Physician Routine Consulting Provider: Brendon Garcia Consult Reason/Comments: icu management Do you want consulting provider notified?: Already Contacted 02/05/17 10:45 Consult Physician Routine Consulting Provider: Leonel Marquez Consult Reason/Comments: leukocytosis Do you want consulting provider notified?: Yes Primary care physician: Philip Andino - Braden Diagnosis(es) (1) Acute metabolic encephalopathy Status: Resolved (2) Aspiration pneumonia Status: Resolved (3) Overdose Status: Resolved (4) Acute kidney injury Current Visit: Yes Status: Resolved (5) Leukocytosis, unspecified Patient to be discharged on Augmentin 875 mg twice a day for 10 days per infectious disease recommendation Current Visit: Yes Status: Acute (6) Acute respiratory failure with hypoxemia Status: Resolved Hospital Course: Hospital course: This is a 46-year-old female who was admitted on 02/01/2017 for status epilepticus. patient was having tonic-clonic seizure activity with dilated pupils lasting 1-1/2 minutes each. Patient was given midazolam IM per paramedics. While in the emergency room the patient remained unresponsive and continued to have evidence of seizure activity. Patient was intubated for airway protection due to acute respiratory failure. patient was admitted to the intensive care unit for treatment of status epilepticus. Aspiration pneumonia was also suspected due to chest x-ray results. She was febrile at time of admission. She is currently afebrile and white count is within normal range. Patient also presented with acute kidney injury with a creatinine of 2.54 secondary to vancomycin toxicity 3 weeks ago, improving. Neurology was consult and patient was placed on IV Keppra for seizure prevention. CT of the brain was completed which showed possible left posterior scalp contusion, a hypodensity in the posterior right temporal lobe, and underlying nonspecific white matter disease. Patient was recently admitted to the hospital on January 08, 2017 for drug overdose , MRSA, right upper lobe pneumonia, and acute metabolic encephalopathy . At that time patient remained on mechanical ventilation and was being evaluated by neurology. Neurology had suggested patient suffered an anoxic brain injury and patient was not showing any signs of neurological improvement. Decision was made to make the patient hospice. In the next 48 hours patient had significantly clinically improved and the decision was made to take the patient off of hospice and discharge to ECF. Patient was to be discharged to [facility] in [facility], and instead she left AGAINST MEDICAL ADVICE with her mother. Mentioned patient white count increased and infectious disease was consulted. Urinalysis showed UTI and patient was placed on antibiotics. Dr. Marquez recommends sending the patient home on Augmentin 875 mg twice a day for 10 days. Nephrology has been following along during admission. Acute kidney injury improving. Patient's creatinine was 1.4 this morning which is near her baseline. Pulmonary continued to follow patient and recommends taper steroids outpatient. Patients guardian involved in discharge planning. Patient to be discharged today to [facility] in [facility]. The above impression and plan of care have been discussed and directed by signing physician. Kristine Hudson, nurse practitioner, acting as scribe for signing physician. Patient Condition at Discharge: Stable Plan - Discharge Summary New Discharge Prescriptions: New methylPREDNISolone Dose Pack [Medrol Dose Pack] 4 mg PO DIRECTED #21 package amLODIPine [Norvasc] 5 mg PO DAILY #30 tab Gabapentin [Neurontin] 200 mg PO QID #180 cap Levothyroxine Sodium [Synthroid] 137 mcg PO DAILY@0630 #30 tab Amoxicillin/Potassium Clav [Augmentin 875-125 Tablet] 1 tab PO Q12HR #20 tab Continue Pyridoxine [Vitamin B-6] 50 mg PO DAILY Cyanocobalamin (Vitamin B-12) [Vitamin B-12] 1,000 mcg PO DAILY Omeprazole 40 mg PO DAILY Folic Acid 0.5 mg PO DAILY@1200 tab Loratadine [Claritin] 10 mg PO DAILY Morphine Sulfate ER [Ms Contin] 15 mg PO HS #30 Discontinued Oxybutynin Chloride [Ditropan] 5 mg PO TID Baclofen [Lioresal] 20 mg PO TID Morphine Sulfate ER [Ms Contin] 15 mg PO QAM #30 tab Naproxen [Naprosyn] 500 mg PO Q12H HYDROcodone/IBUPROFEN [Xylon 10-200 mg Tablet] 0.5 tab PO BID Levothyroxine Sodium [Tirosint] 137 mcg PO DAILY Gabapentin 600 mg PO Q4HR Baclofen [Lioresal] 20 mg PO TID Morphine Sulfate ER [Ms Contin 30Mg] 30 mg PO DAILY No Action Levothyroxine Sodium [Synthroid] 137 mcg PO DAILY Sodium Bicarbonate Tab 650 mg PO BID #60 tab Omeprazole [PriLOSEC] 40 mg PO DAILY Discharge Medication List Cyanocobalamin (Vitamin B-12) [Vitamin B-12] 1,000 mcg PO DAILY 01/08/17 [ History] Levothyroxine Sodium [Synthroid] 137 mcg PO DAILY 01/08/17 [History] Omeprazole 40 mg PO DAILY 01/08/17 [History] Pyridoxine [Vitamin B-6] 50 mg PO DAILY 01/08/17 [History] Folic Acid 0.5 mg PO DAILY@1200 tab 01/30/17 [Rx] Sodium Bicarbonate Tab 650 mg PO BID #60 tab 01/30/17 [Rx] Loratadine [Claritin] 10 mg PO DAILY 02/01/17 [History] Omeprazole [PriLOSEC] 40 mg PO DAILY 02/01/17 [History] Amoxicillin/Potassium Clav [Augmentin 875-125 Tablet] 1 tab PO Q12HR #20 tab [Rx] Gabapentin [Neurontin] 200 mg PO QID #180 cap 02/06/17 [Rx] Levothyroxine Sodium [Synthroid] 137 mcg PO DAILY@0630 #30 tab 02/06/17 [Rx] Morphine Sulfate ER [Ms Contin] 15 mg PO HS #30 02/06/17 [Rx] amLODIPine [Norvasc] 5 mg PO DAILY #30 tab 02/06/17 [Rx] methylPREDNISolone Dose Pack [Medrol Dose Pack] 4 mg PO DIRECTED #21 package 02/06/17 [Rx] Follow up Appointment(s)/Referral(s): Philip Andino MD [Primary Care Provider] - 1-2 days Discharge Disposition: TRANSFER TO SNF/ECF
[2017-02-06 15:21] VITALS: BP 173/91
--- NOTE | 2017-02-06 16:16 | PN ---
DATE OF SERVICE: 02/06/17 REASON FOR FOLLOW UP: Leukocytosis in a person with aspiration pneumonitis. INTERVAL HISTORY: The patient is afebrile. Breathing comfortably. Denies significant chest pain or shortness of breath. Very minimal cough. No abdominal pain or any diarrhea. On examination, blood pressure 141/76 with a pulse of 90. Temperature 97.5. She is 95% on room air. General description is a middle aged female up in the room in no distress. Respiratory system unlabored breathing. Some decreased breath sounds at the bases. No wheeze. Heart S1, S2 regular rate and rhythm. Abdomen soft. No tenderness. LABS: Hemoglobin 10.6, white count 13.7, BUN 26, creatinine 1.40. DIAGNOSTIC IMPRESSION AND PLAN: The patient with Leukocytosis and the patient admitted to the hospital with seizure activity with question of possible aspiration pneumonitis. The patient white count did improve with addition of Unasyn yesterday. At this point, possible discharge home, she can be switched over to Augmentin 875 b.i.d for another ten days with outpatient follow-up. CLARI
[2017-02-07] MEDS ORDERED: predniSONE 20 MG TAB PO SCH (09:00)
== END 2017-02-06 16:00 | DRG 100 ==
LOC: EC 10:57 → 6ICU 14:42 → 6SEL 02-04 18:53
PROVIDERS: ADMIT Family Medicine; ATTEND Family Medicine
PROC: 5A1945Z Respiratory Ventilation, 24-96 Consecutive Hours (ICD-10-PCS; principal; 2017-02-01)
PROC: 06HM33Z Insertion of Infusion Device into Right Femoral Vein, Percutaneous Approach (ICD-10-PCS; principal; 2017-02-01)
PROC: 0BH17EZ Insertion of Endotracheal Airway into Trachea, Via Natural or Artificial Opening (ICD-10-PCS; 2017-02-01)
DX: G40.901 Epilepsy, unspecified, not intractable, with status epilepticus (principal); J69.0 Pneumonitis due to inhalation of food and vomit; J96.01 Acute respiratory failure with hypoxia; G93.41 Metabolic encephalopathy; N17.9 Acute kidney failure, unspecified; J98.11 Atelectasis; F19.10 Other psychoactive substance abuse, uncomplicated; D50.9 Iron deficiency anemia, unspecified; E03.9 Hypothyroidism, unspecified; I10 Essential (primary) hypertension; T36.8X5A Adverse effect of other systemic antibiotics, initial encounter; E87.6 Hypokalemia; G89.4 Chronic pain syndrome; S00.03XA Contusion of scalp, initial encounter; Z79.899 Other long term (current) drug therapy; Z91.19 Patient's noncompliance with other medical treatment and regimen; Z98.1 Arthrodesis status; Z86.14 Personal history of Methicillin resistant Staphylococcus aureus infection; X58.XXXA Exposure to other specified factors, initial encounter
CPT/HCPCS: 36415; 36600; 43753; 70450; 71010; 71020; 72125; 80048; 80053; 80306; 80320; 81001; 82550; 82553; 82728; 82805; 83520; 83540; 83550; 83605; 83735; 84100; 84132; 84484; 85025; 87040; 87070; 87077; 87086; 87186; 87205; 93005; 94002; 94003; 94640; 95816

== ENCOUNTER 2017-11-04 17:51 | Inpatient (IN) | payer MEDICARE, OTHER ==
[2017-11-04] MEDS ORDERED: PIPERACILLIN-TAZOBACTAM 3.375 GM in DEXTROSE/WATER 1 50ML.BAG IVPB STA (18:58)
--- NOTE | 2017-11-04 19:06 | ED ---
Skin/Abscess/FB HPI - General Source: patient, RN notes reviewed Mode of arrival: wheelchair Limitations: physical limitation <Karen Gallego - Last Filed: 11/04/17 22:30> <Wero Rooney - Last Filed: 11/05/17 06:36> - General Chief complaint: Skin/Abscess/Foreign Body Stated complaint: Needle in foot Time Seen by Provider: 11/04/17 18:54 - History of Present Illness Initial comments: This is a 47-year-old female who presents to the emergency department with chief complaint of left foot pain and swelling. Patient states that she was walking her dog this past Thursday. She states that she walked through some brush and when she got home there was a needle stuck in the top of her foot. She states that she removed the needle. She states that she did not feel the needle because she has a history of spinal stroke and has decreased feeling in her left lower extremity. Patient states that at first it was just a little red but then today it progressively worsened in pain and the redness spread rapidly. Patient denies any fevers or chills, chest pain or shortness of breath , abdominal pain, nausea or vomiting. She denies any concerns for retained foreign body. (Karen Gallego) - Related Data Home Medications Medication Instructions Recorded Confirmed Pyridoxine [Vitamin B-6] 50 mg PO DAILY 01/08/17 11/04/17 Loratadine [Claritin] 10 mg PO DAILY 02/01/17 11/04/17 Omeprazole [PriLOSEC] 40 mg PO DAILY 02/01/17 11/04/17 Baclofen [Lioresal] 20 mg PO TID 11/04/17 11/04/17 Folic Acid 0.4 mg PO DAILY 11/04/17 11/04/17 Gabapentin [Neurontin] 600 mg PO Q4H 11/04/17 11/04/17 Levothyroxine Sodium [Synthroid] 100 mcg PO DAILY 11/04/17 11/04/17 Naproxen [Naprosyn] 500 mg PO BID 11/04/17 11/04/17 Oxybutynin Chloride [Ditropan] 5 mg PO TID 11/04/17 11/04/17 Allergies Allergy/AdvReac Type Severity Reaction Status Date / Time acetaminophen Allergy Unknown Verified 11/04/17 20:01 aspirin Allergy Rash/Hives Verified 11/04/17 20:01 Review of Systems ROS Other: All systems not noted in ROS Statement are negative. <Karen Gallego - Last Filed: 11/04/17 22:30> ROS Other: All systems not noted in ROS Statement are negative. <AustinWero manuel - Last Filed: 11/05/17 06:36> ROS Statement: Those systems with pertinent positive or pertinent negative responses have been documented in the HPI. 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 Date of last positivie culture/infection: 01/08/17 MDRO Source:: BLOOD Past Surgical History: Appendectomy, No Surgical Hx Reported, Tubal Ligation, Unable to Obtain Additional Past Surgical History / Comment(s): neck fusion Past Anesthesia/Blood Transfusion Reactions: No Reported Reaction, Unable to Obtain Past Psychological History: No Psychological Hx Reported, Unable to Obtain Smoking Status: Former smoker Past Alcohol Use History: None Reported Past Drug Use History: None Reported - Past Family History Father History Unknown: Yes Family Medical History: Unable to Obtain Mother History Unknown: Yes Family Medical History: Unable to Obtain <Karen Gallego - Last Filed: 11/04/17 22:30> General Exam Limitations: physical limitation <Karen Gallego - Last Filed: 11/04/17 22:30> <NevinWero - Last Filed: 11/05/17 06:36> - General Exam Comments Initial Comments: General: Awake and alert, well-developed; in no apparent distress. Resting comfortably on ED stretcher with mother at bedside. HEENT: Head atraumatic, normocephalic. Pupils are equal, round and reactive to light. Extraocular movements intact. Oropharynx moist without erythema or exudate. Neck: Supple. Normal ROM. Cardiovascular: Regular rate and rhythm. No murmurs, rubs or gallops. Chest symmetrical. Pedal pulses are 2+ equal and palpable bilaterally. Respiratory: Lungs clear to auscultation bilaterally. No wheezes, rales or rhonchi. Normal respiratory effort with no use of accessory muscles. Musculoskeletal: Normal ROM, no tenderness bilateral upper and lower extremities. Ambulating normally. Skin: On the lateral dorsal left foot there is a circular, ecchymotic, erythematous area measuring approximately 10 cm in diameter. Left foot, ankle and distal two thirds of the left lower extremity are erythematous, swollen and tender on palpation. Neurological: Alert and oriented x3. CN II-XII grossly intact. Speech is fluent and answers are appropriate. Sensation of left foot is intact. Psychiatric: Normal mood and affect. No overt signs of depression or anxiety noted. (Karen Gallego) Vital Signs 11/04/17 11/04/17 18:42 21:52 Temperature 99.0 F 100.8 F H Pulse Rate 100 106 H Respiratory 20 20 Rate Blood Pressure 113/62 100/56 O2 Sat by Pulse 96 98 Oximetry Medical Decision Making - Lab Data Result diagrams: 11/04/17 19:35 11/04/17 19:35 - Radiology Data Radiology results: report reviewed, image reviewed <Karen Gallego - Last Filed: 11/04/17 22:30> - Lab Data Result diagrams: 11/04/17 19:35 11/04/17 19:35 <Wero Rooney - Last Filed: 11/05/17 06:36> - Medical Decision Making This is a 47-year-old female who presents to the emergency department with chief complaint of left foot pain and swelling. Patient states that she had a needle stuck in the top of her left foot 4 days ago. Since that time, left foot has become tender, swollen and erythematous. Sepsis workup was performed and labs were reviewed. CBC revealed a white count of 16.6 with a left shift at 15.9. Blood cultures are pending. CMP revealed a BUN of 24 and creatinine 1.4. CRP was 342.8 and lactic acid of 2.3. Patient given 2L bolus normal saline in ED. Patient was started on IV Zosyn immediately on presentation. Patient's vital signs are stable and she is in no acute distress. She will be admitted to the hospital for IV antibiotics for treatment of cellulitis. Patient is in agreement with plan and voices understanding. All questions answered. (Karen Galelgo) I saw this patient in conjunction with the physician operations and intelligence assistant. I performed independent history and physical exam. Agree with case management. I did see the patient, performing history and physical exam, discussed case with admitting physician. (Wero Rooney) - Lab Data Lab Results 11/04/17 11/04/17 11/04/17 Range/Units 19:35 19:35 19:35 WBC 16.6 H (3.8-10.6) k/uL RBC 4.48 (3.80-5.40) m/uL Hgb 14.2 (11.4-16.0) gm/dL Hct 41.2 (34.0-46.0) % MCV 91.8 (80.0-100.0) fL MCH 31.8 (25.0-35.0) pg MCHC 34.6 (31.0-37.0) g/dL RDW 13.3 (11.5-15.5) % Plt Count 313 (150-450) k/uL Neutrophils % (Manual) 84 % Band Neutrophils % 12 % Monocytes % (Manual) 2 % Eosinophils % (Manual) 2 % Neutrophils # (Manual) 15.90 H (1.3-7.7) k/uL Monocytes # (Manual) 0.33 (0-1.0) k/uL Eosinophils # (Manual) 0.33 (0-0.7) k/uL Nucleated RBCs 0 (0-0) /100 WBC Polychromasia Present Sodium 137 (137-145) mmol/L Potassium 3.8 (3.5-5.1) mmol/L Chloride 98 (98-107) mmol/L Carbon Dioxide 22 (22-30) mmol/L Anion Gap 17 mmol/L BUN 24 H (7-17) mg/dL Creatinine 1.40 H (0.52-1.04) mg/dL Est GFR (CKD-EPI)AfAm 51 (>60 ml/min/1.73 sqM) Est GFR (CKD-EPI)NonAf 44 (>60 ml/min/1.73 sqM) Glucose 86 (74-99) mg/dL Lactic Ac Sepsis Rflx Plasma Lactic Acid Benito 2.3 H* (0.7-2.0) mmol/L Calcium 9.8 (8.4-10.2) mg/dL Total Bilirubin 1.3 (0.2-1.3) mg/dL AST 54 H (14-36) U/L ALT 57 H (9-52) U/L Alkaline Phosphatase 78 (38-126) U/L C-Reactive Protein 342.8 H (<10.0) mg/L Total Protein 7.1 (6.3-8.2) g/dL Albumin 4.2 (3.5-5.0) g/dL 11/04/17 Range/Units 21:01 WBC (3.8-10.6) k/uL RBC (3.80-5.40) m/uL Hgb (11.4-16.0) gm/dL Hct (34.0-46.0) % MCV (80.0-100.0) fL MCH (25.0-35.0) pg MCHC (31.0-37.0) g/dL RDW (11.5-15.5) % Plt Count (150-450) k/uL Neutrophils % (Manual) % Band Neutrophils % % Monocytes % (Manual) % Eosinophils % (Manual) % Neutrophils # (Manual) (1.3-7.7) k/uL Monocytes # (Manual) (0-1.0) k/uL Eosinophils # (Manual) (0-0.7) k/uL Nucleated RBCs (0-0) /100 WBC Polychromasia Sodium (137-145) mmol/L Potassium (3.5-5.1) mmol/L Chloride (98-107) mmol/L Carbon Dioxide (22-30) mmol/L Anion Gap mmol/L BUN (7-17) mg/dL Creatinine (0.52-1.04) mg/dL Est GFR (CKD-EPI)AfAm (>60 ml/min/1.73 sqM) Est GFR (CKD-EPI)NonAf (>60 ml/min/1.73 sqM) Glucose (74-99) mg/dL Lactic Ac Sepsis Rflx Y Plasma Lactic Acid Benito (0.7-2.0) mmol/L Calcium (8.4-10.2) mg/dL Total Bilirubin (0.2-1.3) mg/dL AST (14-36) U/L ALT (9-52) U/L Alkaline Phosphatase (38-126) U/L C-Reactive Protein (<10.0) mg/L Total Protein (6.3-8.2) g/dL Albumin (3.5-5.0) g/dL - Radiology Data X-ray left foot impression: There is no acute fracture or dislocation. No radiopaque foreign body identified. (Karen Gallego) Disposition Is patient prescribed a controlled substance at d/c from ED?: No Time of Disposition: 22:30 <Karen Gallego - Last Filed: 11/04/17 22:30> <Wero Rooney - Last Filed: 11/05/17 06:36> Clinical Impression: Cellulitis Disposition: ADMITTED IP TO THIS HOSP Condition: Stable
--- NOTE | 2017-11-04 19:39 | XR ---
EXAMINATION TYPE: XR foot complete LT DATE OF EXAM: 11/04/2017 CLINICAL HISTORY: pain TECHNIQUE: Frontal, lateral and oblique images of the left foot are obtained. COMPARISON: None. FINDINGS: There is no acute fracture/dislocation evident. The joint spaces appear within normal vasquez its. The overlying soft tissue demonstrate soft tissue edema which may reflect cellulitis. No radiop aque foreign body visualized. IMPRESSION: There is no acute fracture or dislocation. No radiopaque foreign body identified. ICD 10 NO FRACTURE, INITIAL EVALUATION
[2017-11-04] MEDS: SODIUM CHLORIDE 0.9% 500 ML IV SCH (19:48)
[2017-11-04 20:23] LABS: HCT 41.2 % (34.0-46.0); HGB 14.2 gm/dL (11.4-16.0); MCH 31.8 pg (25.0-35.0); MCHC 34.6 g/dL (31.0-37.0); MCV 91.8 fL (80.0-100.0); Mean Platelet Volume 6.8; Platelet Count 313 k/uL (150-450); RBC 4.48 m/uL (3.80-5.40); RDW 13.3 % (11.5-15.5); WBC 16.6 k/uL (3.8-10.6)
[2017-11-04 20:28] LABS: Albumin 4.2 g/dL (3.5-5.0); Calcium 9.8 mg/dL (8.4-10.2); Potassium 3.8 mmol/L (3.5-5.1); Total Bilirubin 1.3 mg/dL (0.2-1.3); Total Protein 7.1 g/dL (6.3-8.2)
[2017-11-04 20:38] LABS: Band Neutrophils % 12 %; Eosinophils # (M) 0.33 k/uL (0-0.7); Monocytes # (M) 0.33 k/uL (0-1.0); Neutrophils % (M) 84 %; Nucleated Red Blood Cells 0 /100 WBC (0-0); Polychromasia Present; Total Cells Counted 100
[2017-11-04 21:01] LABS: C Reactive Protein 342.8 mg/L (<10.0)
[2017-11-04] MEDS ORDERED: SODIUM CHLORIDE 0.9% 1,000 ML IV STA (21:02)
[2017-11-04] MEDS ORDERED: VANCOMYCIN IV PER PHARMACY 1 EACH MISC MISCELLANE PRN (21:17)
[2017-11-04] MEDS ORDERED: VANCOMYCIN 1,750 MG in SODIUM CHLORIDE 0.9% 250 ML IVPB ONE (22:00)
[2017-11-04] MEDS ORDERED: KETOROLAC 30 MG/ML 1 ML VIAL IVP PRN (22:17)
[2017-11-04] MEDS ORDERED: IBUPROFEN 400 MG TAB PO PRN (22:17)
[2017-11-04] MEDS ORDERED: NALOXONE 0.4 MG/ML 1 ML VIAL IV PRN (22:17)
[2017-11-04] MEDS: SODIUM CHLORIDE 0.9% 1,000 ML IV SCH (23:29)
[2017-11-05] MEDS: PIPERACILLIN-TAZOBACTAM 3.375 GM in DEXTROSE/WATER 1 50ML.BAG IVPB SCH ×4 (02:22→23:22)
[2017-11-05] MEDS: SODIUM CHLORIDE 0.9% 1,000 ML IV SCH ×2 (08:20→18:19)
[2017-11-05] MEDS: GABAPENTIN 300 MG CAP PO SCH ×3 (08:21→20:02)
[2017-11-05] MEDS: FOLIC ACID 1 MG TAB PO SCH (08:21)
[2017-11-05] MEDS: BACLOFEN 10 MG TAB PO SCH ×3 (08:21→20:02)
[2017-11-05] MEDS: LORATADINE 10 MG TAB PO SCH (08:22)
[2017-11-05] MEDS: LEVOTHYROXINE 100 MCG TAB PO SCH (08:22)
[2017-11-05] MEDS: OXYBUTYNIN CHLORIDE 5 MG TAB PO SCH ×3 (08:23→20:03)
[2017-11-05] MEDS: PANTOPRAZOLE 40 MG TABLET PO SCH (08:23)
[2017-11-05] MEDS: PYRIDOXINE 50 MG TAB PO SCH (08:23)
[2017-11-05] MEDS ORDERED: NAPROXEN 250 MG TAB PO SCH (09:00)
[2017-11-05 09:28] LABS: Basophils % (A) 0 %; Eosinophils # (A) 0.4 k/uL (0-0.7); Eosinophils % (A) 3 %; HCT 31.9 % (34.0-46.0); Lymphocytes # (A) 0.3 k/uL (1.0-4.8); Lymphocytes % (A) 2 %; MCH 30.8 pg (25.0-35.0); MCHC 34.2 g/dL (31.0-37.0); MCV 90.2 fL (80.0-100.0); Mean Platelet Volume 8.4; Monocytes # (A) 0.3 k/uL (0-1.0); Monocytes % (A) 2 %; Neutrophils # (A) 13.1 k/uL (1.3-7.7); Neutrophils % (A) 92 %; Platelet Count 246 k/uL (150-450); RBC 3.54 m/uL (3.80-5.40); RDW 13.3 % (11.5-15.5); WBC 14.3 k/uL (3.8-10.6)
[2017-11-05 09:33] LABS: Albumin 2.7 g/dL (3.5-5.0); Calcium 8.4 mg/dL (8.4-10.2); Potassium 3.4 mmol/L (3.5-5.1); Total Bilirubin 0.8 mg/dL (0.2-1.3); Total Protein 4.9 g/dL (6.3-8.2)
[2017-11-05 09:41] LABS: HGB 10.9 gm/dL (11.4-16.0)
[2017-11-05] MEDS ORDERED: LACTULOSE 20 GM/30 ML CUP PO ONE (10:37)
[2017-11-05] MEDS ORDERED: TETANUS-DIPHTHERIA TOX (PF) 0.5 ML VIAL IM ONE (10:50)
[2017-11-05] MEDS ORDERED: POTASSIUM CHLORIDE ER 20 MEQ TAB.ER PO STA (10:52)
--- NOTE | 2017-11-05 11:03 | P.HPIM ---
History of Present Illness H&P Date: 11/05/17 Chief Complaint: Left foot swelling and redness This is a 47-year-old female, patient of Dr. Haque. 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 She also has history of MRSA in her blood stream and hypothyroidism. Patient presents to the emergency room with increased swelling redness and bruising of her left foot that streaking up into the left tibia area. She reports about 4 days ago she was walking her dog and had walked through some brush and a needle with a syringe poked into her foot. Patient has no sensation in that foot she did not realize initially that she had been poked. Later she was able to pull the syringe and needle out of her foot. She reports over the last 2 days she's had increased swelling redness in that foot. No drainage. She has been febrile. And also having episodes of confusion. Patient is brought into the emergency room with a temp of 100.8 and has gone up 101.3 she was also tachycardic. White count 16.6. Lactic acid 2.3 she also had episode of hypotension blood pressure 86/53. She was given IV fluid boluses. And started on vancomycin and Zosyn in the emergency room. Blood cultures pending. Infectious disease is been consulted. Patient has ALLERGY to acetaminophen. Unable to give any more Motrin. Patient had elevated creatinine level of 1.4. Creatinine has come down to 1.2. She'll be given IV fluids and packed in ice. Patient denies any chest pain. Doesn't having some shortness of breath earlier when she was having the fevers. This has resolved. Denies any nausea or vomiting. Denies any bowel movement changes or urinary symptoms Review of Systems Please refer to HPI otherwise unremarkable 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 Date of last positivie culture/infection: 01/08/17 MDRO Source:: BLOOD Past Surgical History: Appendectomy, No Surgical Hx Reported, Tubal Ligation, Unable to Obtain Additional Past Surgical History / Comment(s): neck fusion Past Anesthesia/Blood Transfusion Reactions: No Reported Reaction, Unable to Obtain Past Psychological History: No Psychological Hx Reported, Unable to Obtain Smoking Status: Former smoker Past Alcohol Use History: None Reported Past Drug Use History: None Reported Additional Drug Use History / Comment(s): tox screen positive - Past Family History Father History Unknown: Yes Family Medical History: Unable to Obtain Mother History Unknown: Yes Family Medical History: Unable to Obtain Medications and Allergies Home Medications Medication Instructions Recorded Confirmed Type Pyridoxine [Vitamin B-6] 50 mg PO DAILY 01/08/17 11/04/17 History Loratadine [Claritin] 10 mg PO DAILY 02/01/17 11/04/17 History Omeprazole [PriLOSEC] 40 mg PO DAILY 02/01/17 11/04/17 History Baclofen [Lioresal] 20 mg PO TID 11/04/17 11/04/17 History Folic Acid 0.4 mg PO DAILY 11/04/17 11/04/17 History Gabapentin [Neurontin] 600 mg PO TID 11/04/17 11/05/17 History Levothyroxine Sodium [Synthroid] 100 mcg PO DAILY 11/04/17 11/04/17 History Naproxen [Naprosyn] 500 mg PO BID 11/04/17 11/04/17 History Oxybutynin Chloride [Ditropan] 5 mg PO TID 11/04/17 11/04/17 History Allergies Allergy/AdvReac Type Severity Reaction Status Date / Time acetaminophen Allergy Unknown Verified 11/04/17 20:01 aspirin Allergy Rash/Hives Verified 11/04/17 20:01 Physical Exam Vitals: Vital Signs Temp Pulse Pulse Resp BP BP Pulse Ox 11/05/17 08:21 99.1 F 11/05/17 06:54 100.5 F H 11/05/17 05:30 101.3 F H 119 H 20 107/56 98 11/05/17 02:56 119/59 11/04/17 23:10 99.9 F H 108 H 16 86/53 100 11/04/17 22:53 100.8 F H 105 H 20 102/60 98 11/04/17 21:52 100.8 F H 106 H 20 100/56 98 11/04/17 18:42 99.0 F 100 20 113/62 96 Intake and Output 11/04/17 11/05/17 11/05/17 22:59 06:59 14:59 Intake Total 2449 Balance 2449 Intake: Intake, IV Titration 2449 Amount Piperacillin-Tazobactam 3 50 .375 gm In Dextrose/Water 1 50ml.bag @ 12.5 mls/hr IVPB ONCE STA Rx#: [id number] Piperacillin-Tazobactam 3 50 .375 gm In Dextrose/Water 1 50ml.bag @ 12.5 mls/hr IVPB Q8HR RAGHU Rx#: [id number] Sodium Chloride 0.9% 1, 600 000 ml @ 100 mls/hr IV . Q10H RAGHU Rx#:[id number] Sodium Chloride 0.9% 1, 999 000 ml @ 999 mls/hr IV . Q1H1M STA Rx#:[id number] Sodium Chloride 0.9% 500 500 ml @ 1000 mls/hr IV Q35M RAGHU Rx#:[id number] Vancomycin 1,500 mg In 250 Sodium Chloride 0.9% 250 ml @ 125 mls/hr IVPB Q16H RAGHU Rx#:[id number] Other: # Voids 3 Weight 85.275 kg Mouth ulcers and thrush Head normocephalic Neck supple Lungs clear to auscultation bilaterally no wheezing or crackles Heart regular rate and rhythm S1-S2, no rub or gallop Abdomen is soft nontender nondistended positive bowel sounds no hepatosplenomegaly Extremities no edema. Left foot is swollen evidence of cellulitis changes and bruising. Presence of erythema and warmth. Mild erythema and warmth streaking up the left tibia Neuro alert and orientated to 3 Results CBC & Chem 7: 11/05/17 07:14 11/05/17 07:14 Labs: Abnormal Lab Results - Last 24 Hours (Table) 11/04/17 11/04/17 11/04/17 Range/Units 19:35 19:35 19:35 WBC 16.6 H (3.8-10.6) k/uL RBC (3.80-5.40) m/uL Hgb (11.4-16.0) gm/dL Hct (34.0-46.0) % Neutrophils # (1.3-7.7) k/uL Neutrophils # (Manual) 15.90 H (1.3-7.7) k/uL Lymphocytes # (1.0-4.8) k/uL Potassium (3.5-5.1) mmol/L Chloride (98-107) mmol/L Carbon Dioxide (22-30) mmol/L BUN 24 H (7-17) mg/dL Creatinine 1.40 H (0.52-1.04) mg/dL Glucose (74-99) mg/dL Plasma Lactic Acid Benito 2.3 H* (0.7-2.0) mmol/L AST 54 H (14-36) U/L ALT 57 H (9-52) U/L C-Reactive Protein 342.8 H (<10.0) mg/L Total Protein (6.3-8.2) g/dL Albumin (3.5-5.0) g/dL 11/05/17 11/05/17 11/05/17 Range/Units 00:28 07:14 07:14 WBC 14.3 H (3.8-10.6) k/uL RBC 3.54 L (3.80-5.40) m/uL Hgb 10.9 L D (11.4-16.0) gm/dL Hct 31.9 L (34.0-46.0) % Neutrophils # 13.1 H (1.3-7.7) k/uL Neutrophils # (Manual) (1.3-7.7) k/uL Lymphocytes # 0.3 L (1.0-4.8) k/uL Potassium 3.4 L (3.5-5.1) mmol/L Chloride 108 H (98-107) mmol/L Carbon Dioxide 20 L (22-30) mmol/L BUN 24 H (7-17) mg/dL Creatinine 1.27 H (0.52-1.04) mg/dL Glucose 101 H (74-99) mg/dL Plasma Lactic Acid Benito 2.1 H* (0.7-2.0) mmol/L AST (14-36) U/L ALT (9-52) U/L C-Reactive Protein (<10.0) mg/L Total Protein 4.9 L (6.3-8.2) g/dL Albumin 2.7 L (3.5-5.0) g/dL Thrombosis Risk Factor Assmnt - Choose All That Apply Any of the Below Risk Factors Present?: Yes Each Factor Represents 1 point: Age 41-60 years, Medical pt on bed rest, Obesity (BMI >25), Swollen legs (current) Other Risk Factors: No Other congenital or acquired thrombophilia - If yes, enter type in comment: No Thrombosis Risk Factor Assessment Total Risk Factor Score: 4 Thrombosis Risk Factor Assessment Level: Moderate Risk Assessment and Plan Assessment: 1. Left foot cellulitis after a syringe needle stick: Infectious disease will be consulted. Patient started on vancomycin and Zosyn. Also check hepatitis panel and HIV testing. Tetanus injection given. Elevated C-reactive protein 2. Sepsis secondary to the left foot cellulitis present on admission: Continue with IV fluids and antibiotics. Lactic acid has normalized. Patient has ALLERGY to acetaminophen and is unable to take NSAIDs to help reduce fever. At this time we'll continue with IV fluids and we'll pack patient in ice 3. Acute kidney injury: Likely related to dehydration patient did have a poor oral intake prior to admission. Patient will be continued on IV fluids. Discontinue all NSAIDs. Watch closely while patient is on vancomycin 4. Hypokalemia patient received potassium supplement 5. 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 Hypothyroidism continue Synthroid GI prophylaxis Protonix and DVT prophylaxis subcu heparin Time with Patient: Greater than 30 (Greater than 50% of the total time spent in counseling and coordination of care.I performed an examination of the patient and discussed their management with the physician Medicare Insurance Specialist. I have reviewed the Physician Medicare Insurance Specialist's notes and agree with the documented findings and plan of care)
[2017-11-05] MEDS: MAG HYDROX/AL HYDROX/SIMETH 30 ML, LIDOCAINE VISCOUS 30 ML, diphenhydrAMINE ELIXIR 75 M... PO SCH ×12 (11:11→20:04)
[2017-11-05] MEDS: DOCUSATE 100 MG CAP PO SCH ×2 (11:12→20:03)
[2017-11-05] MEDS: VANCOMYCIN 1,500 MG in SODIUM CHLORIDE 0.9% 250 ML IVPB SCH (11:16)
[2017-11-05] MEDS ORDERED: RX INFO: IV CONTRAST WAS GIVEN 1 EACH MISC MISCELLANE PRN (13:13)
--- NOTE | 2017-11-05 14:22 | CT ---
EXAMINATION TYPE: CT foot LT wo con DATE OF EXAM: 11/05/2017 COMPARISON: NONE HISTORY: Left foot cellulitis , abscess vs. fascitis CT DLP: 216.9 mGycm Automated exposure control for dose reduction was used. FINDINGS: There is extensive subcutaneous edema and fat stranding on the entirety of the left lower extremity m ost focal anterior laterally within the midfoot but involving the entirety of the visualized left low er extremity. There is associated skin thickening and a fluid attenuated superficial structure just b elow the skin surface dorsally at the level of the proximal metatarsals measuring 2.7 x 0.5 cm. Contr ast is not administered and therefore peripheral enhancement cannot be evaluated for. This could repr esent loculated edema or abscess. Tendons and ligaments are limited on CT and even further limited by the extensive subcutaneous edema. No evidence of acute fracture or dislocation is seen. Very mild de generative changes of the first metatarsal phalangeal joint are seen as osseous proliferation. Small Achilles and plantar enthesophytes are present. Os trigonum is noted. Ankle mortise is maintained. Se quela prior fracture injury seen of the medial malleolus. IMPRESSION: EXTENSIVE SUBCUTANEOUS EDEMA, FAT STRANDING, AND SKIN THICKENING OF THE ENTIRETY OF THE VISUALIZED LE FT LOWER EXTREMITY MOST FOCALLY ANTERIOR LATERALLY WITHIN THE MIDFOOT WITH 2.7 X 0.5 CM FLUID COLLECT ION JUST DEEP TO THE SKIN SURFACE DORSALLY ALONG THE MIDFOOT THAT COULD REPRESENT LOCULATED EDEMA OR SUPERFICIAL ABSCESS SUPERIMPOSED UPON DIFFUSE CELLULITIS.
[2017-11-05 17:01] LABS: HIV AB P24 Non-Reactive (Non-Reactive); HIV P24 AG Non-Reactive (Non-Reactive)
[2017-11-05] MEDS: traMADol 50 MG TAB PO PRN (17:34)
[2017-11-05 17:42] LABS: Hepatitis A Antibody IgM Non-Reactive (Non-Reactive); Hepatitis B Core IgM Non-Reactive (Non-Reactive)
[2017-11-05] MEDS: HEPARIN SODIUM,PORCINE 5,000 UNIT/ML 1 ML VIAL SQ SCH (20:03)
--- NOTE | 2017-11-05 21:27 | CONS ---
CONSULTATION DATE OF SERVICE: 11/05/2017. REASON FOR CONSULTATION: Left foot cellulitis, possible abscess. HISTORY OF PRESENT ILLNESS: The patient is a 47-year-old female presenting to the ER at [facility] with chief complaint of left foot pain, swelling and redness that had been getting worse for the last 2 days prior to presentation to the hospital. About 4 days ago on the weekend, the patient was walking a dog and she walked to the bushes and apparently a small needle poked her left foot area. The patient did not realize that at the time and later on she noticed blood on her socks. The syringe was removed. Within 2 days she noticed the left foot becoming swollen and red and painful. Pain described as throbbing almost 10/10, with redness spreading to the left lower leg area. With these symptoms the patient presented to the ER where she was afebrile on arrival. Subsequently did spike a fever of 101.3 degrees Fahrenheit. The patient has been tachycardic. She did have an elevated white count of 16.6. Lactic acid elevated at 2.3 with a diagnosis of left foot cellulitis with sepsis. She was started on broad- spectrum antibiotics in form of vancomycin and Zosyn and admitted to hospital. Infectious Disease was consulted for further recommendation regarding antibiotic therapy. REVIEW OF SYSTEMS: CONSTITUTIONAL: Positive for weakness along with fever and chills. Eyes: No complaint. ENT no complaint. Respiratory no complaint. Cardiovascular no complaint. Genitourinary no complaint. Gastrointestinal: No complaint. Musculoskeletal as per HPI. Integumentary as per HPI. PSYCHOLOGICAL: No complaint. Endocrine: No complaint. Neurologic no complaint. PAST MEDICAL HISTORY: CVA, TIA, hypothyroidism, MRSA bacteremia. PAST SURGICAL HISTORY: Appendectomy. Tubal ligation. SOCIAL HISTORY: Remote history of smoking. No drinking or drug use. FAMILY HISTORY: No pertinent findings noticed. ALLERGIES: ACETAMINOPHEN AND ASPIRIN. MEDICATIONS: Include the patient is currently on Baclofen, Colace, Pepcid, folic acid, Neurontin, heparin, Synthroid, Claritin, Narcan, Ditropan, Protonix, Piptazobactam, vitamin B6, vancomycin pharmacy to dose. EXAMINATION: Blood pressure is 91/50 with a pulse of 105, temperature 97.4, T-max is 101.3. She is 100% on room air. General description is a middle-aged female lying in bed in no distress. No tachypnea or accessory muscles of respiration use. HEENT examination: No pallor and no scleral icterus. Oral mucosa membranes is moist. No significant erythema or thrush. Neck: Trachea central. No thyromegaly. Lungs unlabored breathing. Clear to auscultation anteriorly. Heart S1, S2. Regular rate and rhythm. ABDOMEN: Soft, no tenderness. No guarding. No rigidity. Extremities: No edema of the feet. Examination of the left foot is swollen, red, which is warm to touch with the redness spreading to the distal lower leg. Slight fluctuation. No drainage was noted. Neurological: Patient is awake, alert, oriented times three. Mood and affect normal. LABS: Hemoglobin is 10.8, white count 14.2. Admission white count 15.6, BUN of 24, creatinine is 1.27. Lactic acid down to 0.9, on admission was 2.3 and liver enzymes slightly elevated. Blood culture obtained which are currently pending. Plain x-rays of the foot with some soft tissue swelling. DIAGNOSTIC IMPRESSION AND PLAN: Patient with sepsis in a patient who did have a fever of 101.3 degrees Fahrenheit, tachycardic. The patient did have elevated white count, elevated lactic acid and some elevated liver enzymes. Source is left foot cellulitis. Will need to rule out underlying abscess or deep infection such as fasciitis in view of the significant swelling, redness and the pain. The patient has been suffering. In view of exposure to the needle we will need to cover for the resistant gram positive MRSA and gram- negative infection such as Pseudomonas aeruginosa. PLAN: 1. We will obtain a CT of the left foot to rule out underlying abscess collection that may need to be drained or any evidence of fasciitis. Though clinical suspicion is low. 2. The patient will be treated with vancomycin pharmacy to dose target of 15 watching the kidney function closely. 3. Zosyn 3.375 g IV piggyback q.8 hours. 4. Aggressive IV fluids. 5. We will follow up on the clinical condition and culture to further adjust medication if needed. Thank you for this consultation. Will follow this patient along with you. MMODL / IJN: [id number] /
[2017-11-06] MEDS: VANCOMYCIN 1,500 MG in SODIUM CHLORIDE 0.9% 250 ML IVPB SCH ×2 (04:17→17:46)
[2017-11-06] MEDS: traMADol 50 MG TAB PO PRN ×2 (04:17→11:39)
[2017-11-06] MEDS: SODIUM CHLORIDE 0.9% 1,000 ML IV SCH ×2 (06:18→18:01)
[2017-11-06] MEDS: LEVOTHYROXINE 100 MCG TAB PO SCH (06:18)
[2017-11-06] MEDS: DOCUSATE 100 MG CAP PO SCH ×2 (08:16→21:03)
[2017-11-06] MEDS: BACLOFEN 10 MG TAB PO SCH ×3 (08:16→21:02)
[2017-11-06] MEDS: HEPARIN SODIUM,PORCINE 5,000 UNIT/ML 1 ML VIAL SQ SCH ×2 (08:16→21:03)
[2017-11-06] MEDS: PANTOPRAZOLE 40 MG TABLET PO SCH (08:16)
[2017-11-06] MEDS: PIPERACILLIN-TAZOBACTAM 3.375 GM in DEXTROSE/WATER 1 50ML.BAG IVPB SCH ×2 (08:16→15:55)
[2017-11-06] MEDS: GABAPENTIN 300 MG CAP PO SCH ×3 (08:16→21:02)
[2017-11-06] MEDS: OXYBUTYNIN CHLORIDE 5 MG TAB PO SCH ×3 (08:17→21:02)
[2017-11-06] MEDS: MAG HYDROX/AL HYDROX/SIMETH 30 ML, LIDOCAINE VISCOUS 30 ML, diphenhydrAMINE ELIXIR 75 M... PO SCH ×12 (08:17→21:03)
[2017-11-06] MEDS: LORATADINE 10 MG TAB PO SCH (08:17)
[2017-11-06] MEDS: PYRIDOXINE 50 MG TAB PO SCH (08:17)
[2017-11-06] MEDS ORDERED: FAMOTIDINE 20 MG TAB PO SCH (09:00)
[2017-11-06 09:39] LABS: Basophils % (A) 0 %; Eosinophils # (A) 0.4 k/uL (0-0.7); Eosinophils % (A) 3 %; HCT 30.9 % (34.0-46.0); HGB 10.2 gm/dL (11.4-16.0); Lymphocytes # (A) 0.5 k/uL (1.0-4.8); Lymphocytes % (A) 4 %; MCH 30.9 pg (25.0-35.0); MCHC 32.9 g/dL (31.0-37.0); Mean Platelet Volume 7.1; Monocytes # (A) 0.5 k/uL (0-1.0); Monocytes % (A) 4 %; Neutrophils % (A) 87 %; Platelet Count 220 k/uL (150-450); RBC 3.29 m/uL (3.80-5.40); RDW 13.4 % (11.5-15.5); WBC 12.6 k/uL (3.8-10.6)
[2017-11-06 09:51] LABS: Albumin 2.5 g/dL (3.5-5.0); Calcium 8.1 mg/dL (8.4-10.2); Potassium 3.2 mmol/L (3.5-5.1); Total Bilirubin 0.4 mg/dL (0.2-1.3); Total Protein 4.7 g/dL (6.3-8.2)
--- NOTE | 2017-11-06 10:51 | P.PN ---
Subjective Progress Note Date: 11/06/17 This is a 47-year-old female, patient of Dr. Haque. 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 She also has history of MRSA in her blood stream and hypothyroidism. Patient presents to the emergency room with increased swelling redness and bruising of her left foot that streaking up into the left tibia area. She reports about 4 days ago she was walking her dog and had walked through some brush and a needle with a syringe poked into her foot. Patient has no sensation in that foot she did not realize initially that she had been poked. Later she was able to pull the syringe and needle out of her foot. She reports over the last 2 days she's had increased swelling redness in that foot. No drainage. She has been febrile. And also having episodes of confusion. Patient is brought into the emergency room with a temp of 100.8 and has gone up 101.3 she was also tachycardic. White count 16.6. Lactic acid 2.3 she also had episode of hypotension blood pressure 86/53. She was given IV fluid boluses. And started on vancomycin and Zosyn in the emergency room. Blood cultures pending. Infectious disease is been consulted. Patient has ALLERGY to acetaminophen. Unable to give any more Motrin. Patient had elevated creatinine level of 1.4. Creatinine has come down to 1.2. She'll be given IV fluids and packed in ice. Patient denies any chest pain. Doesn't having some shortness of breath earlier when she was having the fevers. This has resolved. Denies any nausea or vomiting. Denies any bowel movement changes or urinary symptoms 11/06/2017 patient still having significant swelling and redness of the left foot. Blisters have started to form since yesterday afternoon. She is remained afebrile. Creatinine has normalized at 0.90. Hepatitis panel and HIV screen negative. Patient followed by infectious disease. Patient denies any chest pain or shortness of breath. Denies any nausea or vomiting. Objective - Vital Signs Vital signs: Vital Signs Temp 99.5 F 11/06/17 07:00 Pulse 99 11/06/17 07:00 Resp 16 11/06/17 07:00 BP 105/65 11/06/17 07:00 Pulse Ox 97 11/06/17 07:00 Intake & Output 11/05/17 11/06/17 11/06/17 18:59 06:59 18:59 Intake Total 1200 Balance 1200 Intake: Oral 1200 Other: # Voids 2 2 - Exam Mouth ulcers and thrush Head normocephalic Neck supple Lungs clear to auscultation bilaterally no wheezing or crackles Heart regular rate and rhythm S1-S2, no rub or gallop Abdomen is soft nontender nondistended positive bowel sounds no hepatosplenomegaly Extremities no edema. Left foot is swollen evidence of cellulitis changes and bruising. Presence of erythema and warmth. Mild erythema and warmth streaking up the left tibia. Blister formation on the left foot Neuro alert and orientated to 3 - Labs CBC & Chem 7: 11/06/17 08:29 11/06/17 08:29 Labs: Abnormal Lab Results - Last 24 Hours (Table) 11/06/17 11/06/17 Range/Units 08:29 08:29 WBC 12.6 H (3.8-10.6) k/uL RBC 3.29 L (3.80-5.40) m/uL Hgb 10.2 L (11.4-16.0) gm/dL Hct 30.9 L (34.0-46.0) % Neutrophils # 11.0 H (1.3-7.7) k/uL Lymphocytes # 0.5 L (1.0-4.8) k/uL Potassium 3.2 L (3.5-5.1) mmol/L Chloride 112 H (98-107) mmol/L Carbon Dioxide 20 L (22-30) mmol/L Glucose 118 H (74-99) mg/dL Calcium 8.1 L (8.4-10.2) mg/dL Total Protein 4.7 L (6.3-8.2) g/dL Albumin 2.5 L (3.5-5.0) g/dL Microbiology - Last 24 Hours (Table) 11/04/17 19:35 Blood Culture - Preliminary Blood No Growth after 24 hours Assessment and Plan Assessment: 1. Left foot cellulitis after a syringe needle stick: Infectious disease will be consulted. Patient started on vancomycin and Zosyn. Patient received tetanus injection. Hepatitis screen and HIV screen negative. Computed tomography scan of the foot showing subcutaneous edema with fluid collection questionable edema versus abscess. Also evidence of cellulitis. Infectious disease following 2. Sepsis secondary to the left foot cellulitis present on admission: Continue with IV fluids and antibiotics. Lactic acid has normalized. Patient has ALLERGY to acetaminophen and is unable to take NSAIDs to help reduce fever. At this time we'll continue with IV fluids and we'll pack patient in ice 3. Acute kidney injury: Likely related to dehydration patient did have a poor oral intake prior to admission. Patient will be continued on IV fluids. Discontinue all NSAIDs. Watch closely while patient is on vancomycin. Kidney function has improved 4. Hypokalemia : Patient continues to have a low potassium level. Give K Dur 40 mEq now. Also check magnesium level 5. 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 Hypothyroidism continue Synthroid 7. Anemia: No active signs of bleeding. Hemoglobin 10.2. Check iron studies GI prophylaxis Protonix and DVT prophylaxis subcu heparin I performed an examination of the patient and discussed their management with the physician After School Caregiver. I have reviewed the Physician After School Caregiver's notes and agree with the documented findings and plan of care
[2017-11-06] MEDS ORDERED: POTASSIUM CHLORIDE ER 20 MEQ TAB.ER PO STA (10:55)
[2017-11-06] MEDS: FOLIC ACID 1 MG TAB PO SCH (11:39)
--- NOTE | 2017-11-06 12:40 | CDI ---
Last Revision, May 2017 Documentation Clarification Form Date: October From: Serena Serrato Admit Date: 11/04/2017 10:29:00 PM Patient Name: Yani Dobbs Visit Number: [id number] ATTENTION: The Clinical Documentation Specialists (CDI) and [facility] Coding Staff appreciate your assistance in clarifying documentation. Please respond to the clarification below the line at the bottom and electronically sign. The CDI & [facility] Coding staff will review the response and follow-up if needed. Please note: Queries are made part of the Legal Health Record. If you have any questions, please contact the author of this message via ITS. Dr. Kathryn Brown, A diagnosis of anemia lacks specificity to accurately reflect your patients severity of condition and clarification is needed. Documented 11/06 in PN. History/Risk Factors: spinal cord stroke with sensation loss on left side, MRSA , hypothyroidism Presented with foot cellulitis Clinical indicators: Hemoglobin: 10.9 Hematocrit: 31.9 Treatment: IV fluids Monitor labs In order to capture the severity of condition, please clarify the type of anemia and etiology if known: Acute blood loss anemia Iron deficiency anemia Unable to determine Other, please specify Please continue to document in your progress notes and discharge summary in order to capture severity of illness and risk of mortality. Include clinical findings that support your diagnosis. MTDD
--- NOTE | 2017-11-06 14:01 | PN ---
PROGRESS NOTE DATE OF SERVICE: 11/06/2017 REASON FOR FOLLOWUP: Left foot abscess and cellulitis. INTERVAL HISTORY: The patient overall fells better and has improved. She is breathing comfortably. Still complaining of pain to the left foot area, throbbing, though some improvement with the pain medication. No chest pain. No abdominal pain and no diarrhea. PHYSICAL EXAMINATION: On examination, blood pressure 105/65, pulse of 99, temperature 99.5. She is 97% on room air. General description is a middle-aged female lying in bed in no distress. RESPIRATORY SYSTEM: Unlabored breathing, clear to auscultation anteriorly. HEART: S1, S2. Regular rate and rhythm. ABDOMEN: Soft, no tenderness. Left foot with some swelling and redness and blister formation. No drainage. LABS: Hemoglobin 10.2, white count 12.6, BUN of 16, creatinine 0.90. HIV test came back negative. The CT was suspicions for small fluid collection. DIAGNOSTIC IMPRESSION AND PLAN: Patient with left foot abscess and cellulitis from a needlestick injury. Would recommend getting orthopedic evaluation for possible drainage of this fluid collection, which should be sent for culture for diagnostic purposes as well therapeutic. Keep the patient on vancomycin and Zosyn while waiting for the culture to finalize. Plan of care discussed with the nurse practitioner for the primary team. MMODL / ELYN: [id number] /
[2017-11-06] MEDS ORDERED: LIDOCAINE (PF) 10 MG/ML 5ML AMP SQ ONE (15:25)
[2017-11-06] MEDS ORDERED: LACTULOSE 20 GM/30 ML CUP PO ONE (15:57)
--- NOTE | 2017-11-06 16:27 | P.CNOR ---
History of Present Illness - HPI Consult date: 11/06/17 Requesting physician: Todd Graham Consult reason: other (Left foot cellulitis) History of present illness: Patient is a 47-year-old female seen at bedside this afternoon. She was admitted on October through the emergency department after she developed swelling and pain at the left foot. She states she was walking her dog when she was stuck with a needle which she describes as a diabetes type needle. Pain , swelling and redness progressed. She was admitted for further evaluation and management. Infectious disease was consulted where she has been on IV vancomycin and Zosyn. The pain, swelling and erythema have continued. She denies any new numbness or tingling. She states she had a spinal stroke 4 years ago which left her with some residual left lower extremity weakness. She is currently denying fever, chills, chest pain, calf pain, shortness of breath, new numbness or tingling, dizziness, headaches, slurred speech or other. Review of Systems All systems: negative Constitutional: Denies chills, Denies fever Eyes: denies blurred vision, denies pain Ears, nose, mouth and throat: Denies headache, Denies sore throat Cardiovascular: Denies chest pain, Denies shortness of breath Respiratory: Denies cough Gastrointestinal: Denies abdominal pain, Denies diarrhea, Denies nausea, Denies vomiting Genitourinary: Denies dysuria, Denies hematuria Musculoskeletal: Denies myalgias Integumentary: Denies pruritus, Denies rash Neurological: Denies numbness, Denies weakness Psychiatric: Denies anxiety, Denies depression Endocrine: Denies fatigue, Denies weight change 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 Year Discovered:: 01/08/17 MDRO Source:: BLOOD Past Surgical History: Appendectomy, No Surgical Hx Reported, Tubal Ligation, Unable to Obtain Additional Past Surgical History / Comment(s): neck fusion Past Anesthesia/Blood Transfusion Reactions: No Reported Reaction, Unable to Obtain Past Psychological History: No Psychological Hx Reported, Unable to Obtain Smoking Status: Former smoker Past Alcohol Use History: None Reported Past Drug Use History: None Reported Additional Drug Use History / Comment(s): tox screen positive - Past Family History Father History Unknown: Yes Family Medical History: Unable to Obtain Mother History Unknown: Yes Family Medical History: Unable to Obtain Medications and Allergies Home Medications Medication Instructions Recorded Confirmed Type Pyridoxine [Vitamin B-6] 50 mg PO DAILY 01/08/17 11/04/17 History Loratadine [Claritin] 10 mg PO DAILY 02/01/17 11/04/17 History Omeprazole [PriLOSEC] 40 mg PO DAILY 02/01/17 11/04/17 History Baclofen [Lioresal] 20 mg PO TID 11/04/17 11/04/17 History Folic Acid 0.4 mg PO DAILY 11/04/17 11/04/17 History Gabapentin [Neurontin] 600 mg PO TID 11/04/17 11/05/17 History Levothyroxine Sodium [Synthroid] 100 mcg PO DAILY 11/04/17 11/04/17 History Naproxen [Naprosyn] 500 mg PO BID 11/04/17 11/04/17 History Oxybutynin Chloride [Ditropan] 5 mg PO TID 11/04/17 11/04/17 History Allergies Allergy/AdvReac Type Severity Reaction Status Date / Time acetaminophen Allergy Unknown Verified 11/04/17 20:01 aspirin Allergy Rash/Hives Verified 11/04/17 20:01 Physical Examination Inspection of the left foot reveals diffuse erythema across the dorsum of the foot. There is no erythema on the plantar surface. There is a clear blister at the dorsum and proximal portion of the left foot. There is no open wounds or bleeding. There is no purulent drainage noted. There is no identifiable abscess or fluctuance. The foot is warm to touch. There is less than 2 second capillary refill in all digits. She is able to wiggle the toes. She's tender to palpation about the dorsum of the foot. There is diffuse edema across the dorsum of the foot. The calf is soft and nontender. An outline of the erythema has been previously demarcated and there is no progression past the outlined. She's had some recession of erythema at the distal lower extremity. Motor and sensation is intact. Vascular status is intact. Results CT and x-ray of the left foot do not identify a foreign body. There is no definite identification of abscess. There is diffuse soft tissue swelling seen. There are no fractures or lesions. - Labs Labs: Abnormal Lab Results - Last 24 Hours (Table) 11/06/17 11/06/17 Range/Units 08:29 08:29 WBC 12.6 H (3.8-10.6) k/uL RBC 3.29 L (3.80-5.40) m/uL Hgb 10.2 L (11.4-16.0) gm/dL Hct 30.9 L (34.0-46.0) % Neutrophils # 11.0 H (1.3-7.7) k/uL Lymphocytes # 0.5 L (1.0-4.8) k/uL Potassium 3.2 L (3.5-5.1) mmol/L Chloride 112 H (98-107) mmol/L Carbon Dioxide 20 L (22-30) mmol/L Glucose 118 H (74-99) mg/dL Calcium 8.1 L (8.4-10.2) mg/dL Total Protein 4.7 L (6.3-8.2) g/dL Albumin 2.5 L (3.5-5.0) g/dL Microbiology - Last 24 Hours (Table) 11/04/17 19:35 Blood Culture - Preliminary Blood No Growth after 24 hours H & H 11/04/17 11/05/17 11/06/17 Range/Units 19:35 07:14 08:29 Hgb 14.2 10.9 L D 10.2 L (11.4-16.0) gm/dL Hct 41.2 31.9 L 30.9 L (34.0-46.0) % Result Diagrams: 11/06/17 08:29 11/06/17 08:29 - Diagnostic results Ankle/Foot x-ray: report reviewed, image reviewed Ankle/Foot CT: report reviewed, image reviewed Assessment and Plan (1) Cellulitis Narrative/Plan: Currently there is no definitive area for I&D and because of the diffuse edema and erythema we will have her obtain an MRI of the left foot with/without contrast stat. We'll review its findings and make further recommendations as appropriate and possible surgical consideration. Recommended continued elevation above the heart and supportive measures. Continue IV antibiotics per infectious disease. Current Visit: Yes Status: Acute Priority: Medium Code(s): L03.90 - CELLULITIS, UNSPECIFIED SNOMED Code(s): 727896258 Time with Patient: Less than 30
[2017-11-06 16:54] LABS: Iron Saturation 3.96 (12.00-45.00)
[2017-11-07] MEDS: PIPERACILLIN-TAZOBACTAM 3.375 GM in DEXTROSE/WATER 1 50ML.BAG IVPB SCH ×3 (00:05→15:15)
[2017-11-07] MEDS: SODIUM CHLORIDE 0.9% 1,000 ML IV SCH ×2 (00:05→08:18)
[2017-11-07] MEDS: LEVOTHYROXINE 100 MCG TAB PO SCH (06:18)
[2017-11-07] MEDS: VANCOMYCIN 1,500 MG in SODIUM CHLORIDE 0.9% 250 ML IVPB SCH ×2 (06:18→16:54)
[2017-11-07 08:15] LABS: Basophils % (A) 0 %; Eosinophils # (A) 0.3 k/uL (0-0.7); Eosinophils % (A) 3 %; HCT 29.6 % (34.0-46.0); Lymphocytes # (A) 1.1 k/uL (1.0-4.8); Lymphocytes % (A) 11 %; MCH 31.5 pg (25.0-35.0); MCHC 33.8 g/dL (31.0-37.0); MCV 93.1 fL (80.0-100.0); Mean Platelet Volume 7.1; Monocytes # (A) 0.6 k/uL (0-1.0); Monocytes % (A) 6 %; Neutrophils % (A) 78 %; Platelet Count 212 k/uL (150-450); RBC 3.18 m/uL (3.80-5.40); RDW 13.4 % (11.5-15.5); WBC 10.3 k/uL (3.8-10.6)
[2017-11-07] MEDS: PANTOPRAZOLE 40 MG TABLET PO SCH (08:17)
[2017-11-07] MEDS: FOLIC ACID 1 MG TAB PO SCH (08:17)
[2017-11-07] MEDS: BACLOFEN 10 MG TAB PO SCH ×3 (08:17→20:06)
[2017-11-07] MEDS: OXYBUTYNIN CHLORIDE 5 MG TAB PO SCH ×3 (08:17→20:07)
[2017-11-07] MEDS: HEPARIN SODIUM,PORCINE 5,000 UNIT/ML 1 ML VIAL SQ SCH ×2 (08:17→20:07)
[2017-11-07] MEDS: LORATADINE 10 MG TAB PO SCH (08:18)
[2017-11-07] MEDS: DOCUSATE 100 MG CAP PO SCH ×2 (08:18→20:07)
[2017-11-07] MEDS: MAG HYDROX/AL HYDROX/SIMETH 30 ML, LIDOCAINE VISCOUS 30 ML, diphenhydrAMINE ELIXIR 75 M... PO SCH ×12 (08:18→20:08)
[2017-11-07] MEDS: GABAPENTIN 300 MG CAP PO SCH ×3 (08:18→20:07)
[2017-11-07] MEDS: PYRIDOXINE 50 MG TAB PO SCH (08:18)
[2017-11-07] MEDS: traMADol 50 MG TAB PO PRN (08:24)
[2017-11-07 08:34] LABS: ALT 44 U/L (9-52); AST 18 U/L (14-36); Albumin 2.4 g/dL (3.5-5.0); Alkaline Phosphatase 79 U/L (38-126); Anion Gap 9 mmol/L; Blood Urea Nitrogen 10 mg/dL (7-17); Carbon Dioxide 23 mmol/L (22-30); Chloride 112 mmol/L (98-107); Glucose 95 mg/dL (74-99); Potassium 3.3 mmol/L (3.5-5.1); Sodium 144 mmol/L (137-145); Total Bilirubin 0.5 mg/dL (0.2-1.3); Total Protein 4.6 g/dL (6.3-8.2)
--- NOTE | 2017-11-07 11:56 | MR ---
MR left foot with and without contrast HISTORY: Infection, cellulitis, erythema and swelling Multiplanar multisequence and postcontrast images obtained through the foot following 8.5 cc Gadavist IV. Correlation to CT foot 11/05/2017 and plain film 11/04/2017 There is extensive soft tissue swelling as previously noted. Motion is present on the exam. Subcutane ous fluid collection is noted and has increased in size now measuring approximately 5 x 1.4 centimete rs of the dorsum of the foot extending laterally. Slightly deeper and just superficial to the extenso r tendons at the dorsum of the foot is a fluid collection which shows peripheral enhancement and is c rescentic in course measuring approximately 5 x 1 x 4.5 cm in greatest dimension compatible with absc ess. Some muscular involvement is also suspected with inflammatory change, fluid signal, enhancement on postcontrast images. Bone marrow signal is maintained. Flexor and extensor tendons are intact. Dalila ntar aponeurosis, Achilles tendon are intact. IMPRESSION: There is a superficial fluid collection as described over the dorsum of the foot, deep to the subcutaneous tissues superficial to the extensor tendons findings are suspicious for a localized crescentic abscess additionally. There is likely pyomyositis. Osteomyelitis is not evident. A [place] level critical message alert has been initiated for Dino Mixon via the [employer] System on 11/07/2017 10:36 AM. This message alert has been sent to Dino Mixon via [employer] preferences provided by the clinician for the receipt of Radiology Critical Findings. Message ID [id number].
--- NOTE | 2017-11-07 13:33 | P.PN ---
Subjective Progress Note Date: 11/07/17 This is a 47-year-old female, patient of Dr. Haque. 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 She also has history of MRSA in her blood stream and hypothyroidism. Patient presents to the emergency room with increased swelling redness and bruising of her left foot that streaking up into the left tibia area. She reports about 4 days ago she was walking her dog and had walked through some brush and a needle with a syringe poked into her foot. Patient has no sensation in that foot she did not realize initially that she had been poked. Later she was able to pull the syringe and needle out of her foot. She reports over the last 2 days she's had increased swelling redness in that foot. No drainage. She has been febrile. And also having episodes of confusion. Patient is brought into the emergency room with a temp of 100.8 and has gone up 101.3 she was also tachycardic. White count 16.6. Lactic acid 2.3 she also had episode of hypotension blood pressure 86/53. She was given IV fluid boluses. And started on vancomycin and Zosyn in the emergency room. Blood cultures pending. Infectious disease is been consulted. Patient has ALLERGY to acetaminophen. Unable to give any more Motrin. Patient had elevated creatinine level of 1.4. Creatinine has come down to 1.2. She'll be given IV fluids and packed in ice. Patient denies any chest pain. Doesn't having some shortness of breath earlier when she was having the fevers. This has resolved. Denies any nausea or vomiting. Denies any bowel movement changes or urinary symptoms 11/06/2017 patient still having significant swelling and redness of the left foot. Blisters have started to form since yesterday afternoon. She is remained afebrile. Creatinine has normalized at 0.90. Hepatitis panel and HIV screen negative. Patient followed by infectious disease. Patient denies any chest pain or shortness of breath. Denies any nausea or vomiting. On 11/07/2017 patient is alert and oriented 3 in no apparent distress complaining of pain in the left foot otherwise no complaints at this time, white blood count is down to 10.3, there is no fever or chills no cough no chest pain or shortness of breath no nausea or vomiting no abdominal pain and no urinary symptoms Objective - Vital Signs Vital signs: Vital Signs Temp 98.7 F 11/07/17 05:15 Pulse 89 11/07/17 05:15 Resp 16 11/07/17 05:15 BP 118/59 11/07/17 05:15 Pulse Ox 94 L 11/07/17 05:15 Intake & Output 11/06/17 11/07/17 11/07/17 18:59 06:59 18:59 Intake Total 250 Balance 250 Intake: Oral 250 Other: # Voids 2 4 2 - Exam Mouth ulcers and thrush Head normocephalic and atraumatic Neck supple no JVD no goiter Lungs clear to auscultation bilaterally no wheezing or crackles Heart regular rate and rhythm S1-S2, no rub or gallop Abdomen is soft nontender nondistended positive bowel sounds no hepatosplenomegaly Extremities no edema. Left foot is swollen evidence of cellulitis changes and bruising. Presence of erythema and warmth. Mild erythema and warmth streaking up the left tibia. Blister formation on the left foot Neuro alert and orientated to 3 - Labs CBC & Chem 7: 11/07/17 07:55 11/07/17 07:55 Labs: Abnormal Lab Results - Last 24 Hours (Table) 11/07/17 11/07/17 Range/Units 07:55 07:55 RBC 3.18 L (3.80-5.40) m/uL Hgb 10.0 L (11.4-16.0) gm/dL Hct 29.6 L (34.0-46.0) % Neutrophils # 8.0 H (1.3-7.7) k/uL Potassium 3.3 L (3.5-5.1) mmol/L Chloride 112 H (98-107) mmol/L Calcium 8.0 L (8.4-10.2) mg/dL Total Protein 4.6 L (6.3-8.2) g/dL Albumin 2.4 L (3.5-5.0) g/dL Microbiology - Last 24 Hours (Table) 11/04/17 19:35 Blood Culture - Preliminary Blood No Growth after 48 hours Assessment and Plan Plan: 1. Left foot cellulitis after a syringe needle stick: Infectious disease will be consulted. Patient started on vancomycin and Zosyn. Patient received tetanus injection. Hepatitis screen and HIV screen negative. Computed tomography scan of the foot showing subcutaneous edema with fluid collection questionable edema versus abscess. Also evidence of cellulitis. Infectious disease following. MRI done and did not reveal any clear evidence of osteomyelitis 2. Sepsis secondary to the left foot cellulitis present on admission: Continue with IV fluids and antibiotics. Lactic acid has normalized. Patient has ALLERGY to acetaminophen and is unable to take NSAIDs to help reduce fever. At this time we'll continue with IV fluids and we'll pack patient in ice 3. Acute kidney injury: Likely related to dehydration patient did have a poor oral intake prior to admission. Patient will be continued on IV fluids. Discontinue all NSAIDs. Watch closely while patient is on vancomycin. Kidney function has improved 4. Hypokalemia : Patient continues to have a low potassium level. Give K Dur 40 mEq now. Also check magnesium level 5. 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 Hypothyroidism continue Synthroid 7. Anemia: No active signs of bleeding. Hemoglobin 10.2. Check iron studies GI prophylaxis Protonix and DVT prophylaxis subcu heparin
[2017-11-07] MEDS ORDERED: Potassium Replacement Protocol 1 EACH MISC MISCELLANE PRN (14:13)
[2017-11-07] MEDS: POTASSIUM CHLORIDE ER 20 MEQ TAB.ER PO SCH ×2 (15:16→16:54)
--- NOTE | 2017-11-07 17:01 | P.PN ---
Subjective Progress Note Date: 11/07/17 Principal diagnosis: Left foot cellulitis/ infection Patient is a 47-year-old female seen at bedside this morning. We were consulted yesterday November 06 regarding her left foot infection. A stat MRI was ordered. The pain, swelling and erythema have continued. She has been on IV Vancomycin and Zosyn per infectious disease. She denies any new numbness or tingling. She states she had a spinal stroke 4 years ago which left her with some residual left lower extremity weakness. She is currently denying fever, chills, chest pain, calf pain, shortness of breath, new numbness or tingling, dizziness, headaches, slurred speech or other. Objective - Vital Signs Vital signs: Vital Signs Temp 97.5 F L 11/07/17 14:35 Pulse 97 11/07/17 14:35 Resp 16 11/07/17 14:35 BP 128/97 11/07/17 14:35 Pulse Ox 100 11/07/17 14:35 Intake & Output 11/06/17 11/07/17 11/07/17 18:59 06:59 18:59 Intake Total 250 Output Total 3 Balance 250 -3 Intake: Oral 250 Output: Urine 3 Other: # Voids 2 4 1 # Bowel Movements 1 - Exam Inspection of the left foot reveals continued diffuse erythema across the dorsum of the foot. It has not progressed further from previous demarcation outlined. There is no erythema on the plantar surface. There is a clear blister at the dorsum and proximal portion of the left foot. There is no open wounds or bleeding. There is no purulent drainage noted. There is no identifiable abscess or fluctuance. The foot is warm to touch. There is less than 2 second capillary refill in all digits. She is able to wiggle the toes. She's tender to palpation about the dorsum of the foot. There is diffuse edema across the dorsum of the foot. The calf is soft and nontender. She's had some recession of erythema at the distal lower leg. Motor and sensation is intact. Vascular status is intact. - Constitutional General appearance: Present: no acute distress - Psychiatric Psychiatric: Present: A&O x's 3, appropriate affect, intact judgment & insight - Labs CBC & Chem 7: 11/07/17 07:55 11/07/17 07:55 Labs: Abnormal Lab Results - Last 24 Hours (Table) 11/07/17 11/07/17 Range/Units 07:55 07:55 RBC 3.18 L (3.80-5.40) m/uL Hgb 10.0 L (11.4-16.0) gm/dL Hct 29.6 L (34.0-46.0) % Neutrophils # 8.0 H (1.3-7.7) k/uL Potassium 3.3 L (3.5-5.1) mmol/L Chloride 112 H (98-107) mmol/L Calcium 8.0 L (8.4-10.2) mg/dL Total Protein 4.6 L (6.3-8.2) g/dL Albumin 2.4 L (3.5-5.0) g/dL Microbiology - Last 24 Hours (Table) 11/04/17 19:35 Blood Culture - Preliminary Blood No Growth after 48 hours - Imaging and Cardiology MRI reviewed. No definitive abcess is seen in the deep tissue or foot. No evidence of osteomyletis. Assessment and Plan (1) Cellulitis Narrative/Plan: It appears there is no definitive area for I&D. She is afebrile and her WBC is normal. However, I will review with Dr. Graham and request his recommendations. Recommend continued elevation above the heart, pain management and supportive measures. Continue IV antibiotics per infectious disease. Current Visit: Yes Status: Acute Priority: Medium Code(s): L03.90 - CELLULITIS, UNSPECIFIED SNOMED Code(s): 036314988 Time with Patient: Less than 30
--- NOTE | 2017-11-07 18:20 | PN ---
PROGRESS NOTE DATE OF VISIT: 11/07/2017. Yani is a 47-year-old female who we were consulted on seen yesterday for left foot cellulitis and possible abscess. I saw her at the bedside this evening. She first was walking and had a needlestick type to the left foot a week ago. This happened last Thursday. She then developed a little red spot and then continued to get swelling and pain in the left foot. She was admitted to the hospital here on November 04, 2017. Infectious Disease was consulted. She has been on IV vancomycin and Zosyn. The pain, swelling and erythema have continued. We were consulted on November 06 for evaluation. She has a very diffuse swelling on the dorsum of her foot. We did order an MRI to try to localize any area of subcutaneous infection, which may benefit from drainage. She had this MRI yesterday when the read came back today. 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 She otherwise denies fevers, chills, chest pain, calf pain, shortness of breath. MEDICAL HISTORY: Cerebrovascular accident/TIA and thyroid disorder. SURGICAL HISTORY: Appendectomy, tubal ligation. SOCIAL HISTORY: She is a former smoker. She lives independently at home. PHYSICAL EXAMINATION: She is resting comfortably when I saw her this evening. Her temperature 97.5, blood pressure 120/97, pulse was 97. The white count 10.3, hemoglobin 10.0, platelets 212. Inspection of the left foot reveals diffuse erythema and edema across the dorsum of the foot. It has not progressed from previous demarcation lines that have been done. She has absolutely no erythema on the plantar surface. She has a very large clear blister at the dorsal proximal lateral aspect of the foot. No open wounds or drainage or bleeding. There is no purulence noted about the entire foot. The foot is warm to touch. She does have brisk capillary refill in all of her toes. She is able to flex and extend all of her toes. She does have tenderness to palpation of the dorsum of the foot. The calf is soft and nontender. I did review the MRI. There may be some suggestion of a subcutaneous abscess as per the radiology note. I did review the images myself. It is very difficult to discern any area of any specific subcutaneous abscess. However, there is a suggestion of that. The radiologist felt as if there was a subcutaneous abscess. IMPRESSION: Left dorsal foot cellulitis, possible deep abscess. RECOMMENDATION: The foot does look quite concerning with regards to the erythema. She does have quite a bit of swelling on the dorsum of the foot. On examination, it was noted it was very difficult to discern a specific area of a subcutaneous abscess. There is a small suggestion of that on the MRI. However, there is quite a bit of motion artifact noted on the MRI as well. She has reached a plateau and has not improved much on her antibiotic regimen over the last couple of days. I do think it is reasonable to surgically explore this area on the dorsal lateral aspect of the foot and perform an incision and drainage of the subcutaneous abscess there. I think this would best be done in the operating room. Certainly, we will get deep cultures. She will likely benefit greatly from whirlpool treatment postoperatively as well. The plan would be to go forward with incision and drainage in the operating room tomorrow morning. We will keep Yani n.p.o. after midnight tonight. I did discuss this with Yani in detail. Discussed the risks of the procedure. The risks include, but are not limited to, risk of continued infection, nerve damage, bleeding, pain. At this point, Yani expressed understanding of the procedure. All of her questions were answered to her satisfaction and appropriate informed consent was obtained. We plan to go forward with incision and drainage of subcutaneous abscess of her left foot tomorrow morning here at [facility]. SHERRELL / LANETTE: [id number] /
[2017-11-08] MEDS: PIPERACILLIN-TAZOBACTAM 3.375 GM in DEXTROSE/WATER 1 50ML.BAG IVPB SCH ×3 (00:40→15:07)
[2017-11-08] MEDS: SODIUM CHLORIDE 0.9% 1,000 ML IV SCH ×3 (00:43→15:07)
[2017-11-08] MEDS ORDERED: VANCOMYCIN TROUGH DUE 1 EACH MISC MISCELLANE ONE (04:00)
[2017-11-08 04:31] LABS: Albumin 2.6 g/dL (3.5-5.0); Basophils % (A) 0 %; Calcium 8.5 mg/dL (8.4-10.2); Eosinophils # (A) 0.4 k/uL (0-0.7); Eosinophils % (A) 5 %; HCT 30.7 % (34.0-46.0); HGB 10.2 gm/dL (11.4-16.0); Lymphocytes # (A) 1.5 k/uL (1.0-4.8); Lymphocytes % (A) 19 %; MCH 30.6 pg (25.0-35.0); MCHC 33.2 g/dL (31.0-37.0); MCV 92.3 fL (80.0-100.0); Mean Platelet Volume 7.1; Monocytes # (A) 0.6 k/uL (0-1.0); Monocytes % (A) 8 %; Neutrophils # (A) 5.2 k/uL (1.3-7.7); Neutrophils % (A) 65 %; Platelet Count 233 k/uL (150-450); RBC 3.33 m/uL (3.80-5.40); RDW 13.4 % (11.5-15.5); Total Bilirubin 0.4 mg/dL (0.2-1.3); Total Protein 5.1 g/dL (6.3-8.2); WBC 7.9 k/uL (3.8-10.6)
[2017-11-08] MEDS: VANCOMYCIN 1,500 MG in SODIUM CHLORIDE 0.9% 250 ML IVPB SCH ×2 (05:27→16:37)
[2017-11-08] MEDS: LEVOTHYROXINE 100 MCG TAB PO SCH (06:24)
[2017-11-08] MEDS: PANTOPRAZOLE 40 MG TABLET PO SCH (06:54)
[2017-11-08] MEDS: FOLIC ACID 1 MG TAB PO SCH (06:55)
[2017-11-08] MEDS: MAG HYDROX/AL HYDROX/SIMETH 30 ML, LIDOCAINE VISCOUS 30 ML, diphenhydrAMINE ELIXIR 75 M... PO SCH ×12 (06:55→20:00)
[2017-11-08] MEDS: LORATADINE 10 MG TAB PO SCH (06:55)
[2017-11-08] MEDS: HEPARIN SODIUM,PORCINE 5,000 UNIT/ML 1 ML VIAL SQ SCH ×2 (06:55→20:00)
[2017-11-08] MEDS: PYRIDOXINE 50 MG TAB PO SCH (06:55)
[2017-11-08] MEDS: DOCUSATE 100 MG CAP PO SCH ×2 (06:56→20:00)
[2017-11-08] MEDS: BACLOFEN 10 MG TAB PO SCH ×3 (07:12→19:59)
[2017-11-08] MEDS: OXYBUTYNIN CHLORIDE 5 MG TAB PO SCH ×3 (07:12→19:59)
[2017-11-08] MEDS: GABAPENTIN 300 MG CAP PO SCH ×3 (07:12→19:59)
[2017-11-08] MEDS ORDERED: HYDROmorphone 0.5 MG/0.5 ML SYRINGE IVP PRN ×2 (09:27→10:20)
[2017-11-08] MEDS: ceFAZolin 3,000 MG in SODIUM CHLORIDE 0.9% IRRIGATIO 3,000 ML IRRIGATION ONE ×2 (09:52→11:14)
[2017-11-08] MEDS ORDERED: IV FLUID CONTINUATION 1,000 ML IV ONE ×2 (09:56→10:05)
[2017-11-08] MEDS ORDERED: PROPOFOL 10 MG/ML 20 ML VIAL IV ONE (10:05)
[2017-11-08] MEDS ORDERED: MIDAZOLAM 2 MG/2 ML VIAL ONE (10:05)
[2017-11-08] MEDS ORDERED: fentaNYL (PF) 50 MCG/ML 2 ML AMP ONE (10:05)
[2017-11-08] MEDS ORDERED: LIDOCAINE 1% INJ 10MG/ML (20 ML MDV) ONE (10:05)
[2017-11-08] MEDS ORDERED: ONDANSETRON 4 MG/2 ML VIAL IVP PRN (10:20)
[2017-11-08] MEDS ORDERED: diphenhydrAMINE 25 MG CAP PO PRN (10:20)
[2017-11-08] MEDS ORDERED: METOCLOPRAMIDE 5 MG/ML 2 ML VIAL IVP PRN (10:20)
[2017-11-08] MEDS ORDERED: hydrOXYzine PAMOATE 25 MG CAP PO PRN (10:20)
[2017-11-08] MEDS ORDERED: SENNOSIDES-DOCUSATE SODIUM 1 EACH TAB PO PRN (10:20)
[2017-11-08] MEDS ORDERED: PROCHLORPERAZINE SUPPOSITORY 25 MG SUPP RECTAL PRN (10:20)
[2017-11-08] MEDS: LACTATED RINGERS 1,000 ML IV SCH (11:13)
--- NOTE | 2017-11-08 12:50 | P.PN ---
Subjective Progress Note Date: 11/08/17 This is a 47-year-old female, patient of Dr. Haque. 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 She also has history of MRSA in her blood stream and hypothyroidism. Patient presents to the emergency room with increased swelling redness and bruising of her left foot that streaking up into the left tibia area. She reports about 4 days ago she was walking her dog and had walked through some brush and a needle with a syringe poked into her foot. Patient has no sensation in that foot she did not realize initially that she had been poked. Later she was able to pull the syringe and needle out of her foot. She reports over the last 2 days she's had increased swelling redness in that foot. No drainage. She has been febrile. And also having episodes of confusion. Patient is brought into the emergency room with a temp of 100.8 and has gone up 101.3 she was also tachycardic. White count 16.6. Lactic acid 2.3 she also had episode of hypotension blood pressure 86/53. She was given IV fluid boluses. And started on vancomycin and Zosyn in the emergency room. Blood cultures pending. Infectious disease is been consulted. Patient has ALLERGY to acetaminophen. Unable to give any more Motrin. Patient had elevated creatinine level of 1.4. Creatinine has come down to 1.2. She'll be given IV fluids and packed in ice. Patient denies any chest pain. Doesn't having some shortness of breath earlier when she was having the fevers. This has resolved. Denies any nausea or vomiting. Denies any bowel movement changes or urinary symptoms 11/06/2017 patient still having significant swelling and redness of the left foot. Blisters have started to form since yesterday afternoon. She is remained afebrile. Creatinine has normalized at 0.90. Hepatitis panel and HIV screen negative. Patient followed by infectious disease. Patient denies any chest pain or shortness of breath. Denies any nausea or vomiting. On 11/07/2017 patient is alert and oriented 3 in no apparent distress complaining of pain in the left foot otherwise no complaints at this time, white blood count is down to 10.3, there is no fever or chills no cough no chest pain or shortness of breath no nausea or vomiting no abdominal pain and no urinary symptoms On 11/08/2017 patient is alert and oriented 3 in no apparent distress she underwent incision and drainage of the left dorsal foot today with Dr. Graham at this time she denies any pain or discomfort. There is no fever or chills no headache no dizziness no chest pain no shortness of breath no cough no nausea or vomiting no abdominal pain no diarrhea and no urinary symptoms. Objective - Vital Signs Vital signs: Vital Signs Temp 98.8 F 11/08/17 10:34 Pulse 62 11/08/17 11:00 Resp 16 11/08/17 11:00 BP 111/76 11/08/17 11:00 Pulse Ox 95 11/08/17 11:00 Intake & Output 11/07/17 11/08/17 11/08/17 18:59 06:59 18:59 Intake Total 201 Output Total 3 600 305 Balance -3 -600 -104 Intake: IV 201 Output: Urine 3 600 300 Estimated Blood Loss 5 Other: # Voids 1 2 3 # Bowel Movements 1 0 - Exam Mouth ulcers and thrush Head normocephalic and atraumatic Neck supple no JVD no goiter Lungs clear to auscultation bilaterally no wheezing or crackles Heart regular rate and rhythm S1-S2, no rub or gallop Abdomen is soft nontender nondistended positive bowel sounds no hepatosplenomegaly Extremities no edema. Left foot is swollen evidence of cellulitis changes and bruising. Patient is status post incision and drainage of the left dorsal foot she has a cast on her left lower extremity. Neuro alert and orientated to 3 - Labs CBC & Chem 7: 11/08/17 03:47 11/08/17 03:47 Labs: Abnormal Lab Results - Last 24 Hours (Table) 11/06/17 11/08/17 11/08/17 Range/Units 08:29 03:47 03:47 RBC 3.33 L (3.80-5.40) m/uL Hgb 10.2 L (11.4-16.0) gm/dL Hct 30.7 L (34.0-46.0) % Chloride 109 H (98-107) mmol/L Iron 8 L (50-170) ug/dL TIBC 202 L (228-460) ug/dL Iron Saturation 3.96 L (12.00-45.00) Ferritin 402.8 H (10.0-291.0) ng/mL Total Protein 5.1 L (6.3-8.2) g/dL Albumin 2.6 L (3.5-5.0) g/dL Microbiology - Last 24 Hours (Table) 11/04/17 19:35 Blood Culture - Preliminary Blood No Growth after 72 hours Assessment and Plan Plan: 1. Left foot cellulitis after a syringe needle stick: Infectious disease will be consulted. Patient started on vancomycin and Zosyn. Patient received tetanus injection. Patient underwent incision and drainage of the left dorsal foot today. Hepatitis screen and HIV screen negative. Computed tomography scan of the foot showing subcutaneous edema with fluid collection questionable edema versus abscess. Also evidence of cellulitis. Infectious disease following. MRI done and did not reveal any clear evidence of osteomyelitis. Blood cultures are so far negative. Awaiting wound culture. 2. Sepsis secondary to the left foot cellulitis present on admission: Continue with IV fluids and antibiotics. Lactic acid has normalized. Patient has ALLERGY to acetaminophen and is unable to take NSAIDs to help reduce fever. At this time we'll continue with IV fluids and we'll pack patient in ice 3. Acute kidney injury: Likely related to dehydration patient did have a poor oral intake prior to admission. Patient will be continued on IV fluids. Discontinue all NSAIDs. Watch closely while patient is on vancomycin. Kidney function has improved 4. Hypokalemia : Patient continues to have a low potassium level. Give K Dur 40 mEq now. Also check magnesium level 5. 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 Hypothyroidism continue Synthroid 7. Anemia: No active signs of bleeding. Hemoglobin 10.2. Check iron studies GI prophylaxis Protonix and DVT prophylaxis subcu heparin
--- NOTE | 2017-11-08 13:41 | OP ---
OPERATIVE REPORT DATE OF PROCEDURE: 11/08/2017. PREOPERATIVE DIAGNOSIS: Left dorsal foot infection subcutaneous infection. POSTOPERATIVE DIAGNOSIS: Left dorsal foot subcutaneous abscess. PROCEDURE: Incision and drainage abscess, left dorsal foot. SURGEON: Todd Graham MD. ANESTHESIA: Conscious sedation. ESTIMATED BLOOD LOSS: Minimal. TOURNIQUET: None. DRAINS: None. COMPLICATIONS: None apparent. DISPOSITION: Postanesthesia care unit. INDICATIONS: Yani is a 47-year-old female who somehow had a hypodermic needle get stuck in her foot while out walking her dog approximately 8 days ago. She initially presented to the hospital with some erythema in the dorsum of the foot on November 04. We were consulted on . MRI shows a possibility for subcutaneous abscess. The infection did not appear to be resolving with antibiotic therapy. Decision was made to proceed forward with incision and drainage of a possible subcutaneous abscess. The risks of procedure were discussed with Yani in detail. These risks include, but are not limited to, risk of continued infection, nerve damage, bleeding, pain. All of her questions with regards to the risks of procedure were answered to her satisfaction. Appropriate informed consent was obtained. PROCEDURE: The patient was identified in preoperative holding area. Surgical site was marked by both the patient and myself. She was then transported to operative suite. She was placed where she remained supine on her on the operating table. Conscious sedation was then administered and dosed per the anesthesia department without apparent complication. The patient's left lower extremity then prepped and draped in usual sterile fashion. Standard surgical pause undertaken to ensure that we were operating the correct site and appropriate preop antibiotics were given. All staff in room agreement and we proceeded. She had a very large serous clear blister on the dorsum of the foot. This was lanced. The blister was then debrided sharply with a scalpel. This layer of skin was removed. I then made a small 1/2 to 2 cm incision on the dorsal lateral aspect of her foot. I then spread with a hemostats subcutaneously. Purulent material was expressed. We did take 2 deep cultures. This were sent to the lab for analysis. I then bluntly spread with a hemostat subcutaneously about the dorsum of the foot. We then irrigated the area with 3 L of antibiotic saline solution with Ancef had been added to the solution. I then packed the subcutaneous aspect of her foot with 0.5 inch iodoform gauze. Adaptic nonadhesive dressing was then placed on the dorsum of the foot and then a sterile compressive bulky dressing was then placed on the dorsum of the foot. Conscious sedation was reversed without complication. She was transferred to the recovery room in stable condition. She will be returned to the floor. Infectious Disease has been consulted. Antibiotic therapy will be as directed per them based on the deep cultures. She will need local wound care as well. The skin incision will be left to heal by secondary intention. MMODL / IJN: [id number] /
--- NOTE | 2017-11-08 22:44 | PN ---
PROGRESS NOTE DATE OF SERVICE: 11/08/2017. REASON FOR FOLLOWUP: Left foot abscess and cellulitis. INTERVAL HISTORY: The patient is afebrile. The patient did have an MRI done yesterday, which was suggestive of an abscess. Subsequently taken to the OR this morning and is status post drainage of an abscess. Culture has been obtained. The patient still complains of significant pain to the left foot area. Denies any chest pain or shortness of breath or cough. No abdominal pain, no diarrhea. EXAMINATION: Blood pressure is 128/75, pulse 87, temperature 96.8. She is 100% on room air. General description is a middle aged female, lying in bed in no distress. RESPIRATORY SYSTEM: Unlabored breathing, clear to auscultation anteriorly. HEART: S1, S2. Regular rate and rhythm. The left foot is currently dressed up, no obvious drainage on the dressing. LABS: Hemoglobin 10.2, white count 7.9, BUN of 11, creatinine 0.90. Vancomycin trough is 15.9. Wound culture currently pending. Blood culture negative. DIAGNOSTIC IMPRESSION AND PLAN: Patient with left foot abscess and cellulitis, status post drainage of this abscess. The patient at this time will continue vanco and Zosyn while waiting for the culture to finalize to determine discharge antibiotics. Continue supportive care. MMODL / IJN: [id number] /
[2017-11-09] MEDS: traMADol 50 MG TAB PO PRN (00:17)
[2017-11-09] MEDS: PIPERACILLIN-TAZOBACTAM 3.375 GM in DEXTROSE/WATER 1 50ML.BAG IVPB SCH ×3 (00:17→15:18)
[2017-11-09] MEDS: VANCOMYCIN 1,500 MG in SODIUM CHLORIDE 0.9% 250 ML IVPB SCH ×2 (06:16→16:19)
[2017-11-09] MEDS: SODIUM CHLORIDE 0.9% 1,000 ML IV SCH (06:16)
[2017-11-09] MEDS: LEVOTHYROXINE 100 MCG TAB PO SCH (06:31)
[2017-11-09] MEDS: GABAPENTIN 300 MG CAP PO SCH ×3 (08:24→22:01)
[2017-11-09] MEDS: FOLIC ACID 1 MG TAB PO SCH (08:24)
[2017-11-09] MEDS: MAG HYDROX/AL HYDROX/SIMETH 30 ML, LIDOCAINE VISCOUS 30 ML, diphenhydrAMINE ELIXIR 75 M... PO SCH ×12 (08:24→22:03)
[2017-11-09] MEDS: DOCUSATE 100 MG CAP PO SCH ×2 (08:24→22:02)
[2017-11-09] MEDS: PYRIDOXINE 50 MG TAB PO SCH (08:24)
[2017-11-09] MEDS: HEPARIN SODIUM,PORCINE 5,000 UNIT/ML 1 ML VIAL SQ SCH ×2 (08:24→22:03)
[2017-11-09] MEDS: BACLOFEN 10 MG TAB PO SCH ×3 (08:24→22:02)
[2017-11-09] MEDS: OXYBUTYNIN CHLORIDE 5 MG TAB PO SCH ×3 (08:24→22:02)
[2017-11-09] MEDS: PANTOPRAZOLE 40 MG TABLET PO SCH (08:24)
[2017-11-09] MEDS: LORATADINE 10 MG TAB PO SCH (08:24)
[2017-11-09] MEDS: LACTATED RINGERS 1,000 ML IV SCH (08:25)
[2017-11-09] MEDS: FERROUS SULFATE 325 MG TAB PO SCH ×2 (08:36→22:01)
[2017-11-09 09:51] LABS: Basophils # (A) 0.1 k/uL (0-0.2); Basophils % (A) 1 %; Eosinophils # (A) 0.3 k/uL (0-0.7); Eosinophils % (A) 3 %; HCT 32.7 % (34.0-46.0); HGB 10.8 gm/dL (11.4-16.0); Lymphocytes # (A) 1.6 k/uL (1.0-4.8); Lymphocytes % (A) 19 %; MCH 30.8 pg (25.0-35.0); MCHC 33.2 g/dL (31.0-37.0); MCV 92.7 fL (80.0-100.0); Mean Platelet Volume 6.7; Monocytes # (A) 0.7 k/uL (0-1.0); Monocytes % (A) 8 %; Neutrophils # (A) 5.8 k/uL (1.3-7.7); Neutrophils % (A) 66 %; Platelet Count 291 k/uL (150-450); RBC 3.53 m/uL (3.80-5.40); RDW 13.1 % (11.5-15.5); WBC 8.8 k/uL (3.8-10.6)
[2017-11-09 10:07] LABS: Albumin 2.7 g/dL (3.5-5.0); Calcium 8.7 mg/dL (8.4-10.2); Potassium 3.7 mmol/L (3.5-5.1); Total Bilirubin 0.3 mg/dL (0.2-1.3); Total Protein 5.3 g/dL (6.3-8.2)
--- NOTE | 2017-11-09 10:17 | P.PN ---
Subjective Progress Note Date: 11/09/17 This is a 47-year-old female, patient of Dr. Haqeu. 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 She also has history of MRSA in her blood stream and hypothyroidism. Patient presents to the emergency room with increased swelling redness and bruising of her left foot that streaking up into the left tibia area. She reports about 4 days ago she was walking her dog and had walked through some brush and a needle with a syringe poked into her foot. Patient has no sensation in that foot she did not realize initially that she had been poked. Later she was able to pull the syringe and needle out of her foot. She reports over the last 2 days she's had increased swelling redness in that foot. No drainage. She has been febrile. And also having episodes of confusion. Patient is brought into the emergency room with a temp of 100.8 and has gone up 101.3 she was also tachycardic. White count 16.6. Lactic acid 2.3 she also had episode of hypotension blood pressure 86/53. She was given IV fluid boluses. And started on vancomycin and Zosyn in the emergency room. Blood cultures pending. Infectious disease is been consulted. Patient has ALLERGY to acetaminophen. Unable to give any more Motrin. Patient had elevated creatinine level of 1.4. Creatinine has come down to 1.2. She'll be given IV fluids and packed in ice. Patient denies any chest pain. Doesn't having some shortness of breath earlier when she was having the fevers. This has resolved. Denies any nausea or vomiting. Denies any bowel movement changes or urinary symptoms 11/06/2017 patient still having significant swelling and redness of the left foot. Blisters have started to form since yesterday afternoon. She is remained afebrile. Creatinine has normalized at 0.90. Hepatitis panel and HIV screen negative. Patient followed by infectious disease. Patient denies any chest pain or shortness of breath. Denies any nausea or vomiting. 11/09/2017 patient is status post I&D on 11/08/2017. Left foot is bandaged. She is having a yellowish drainage from the foot. Followed closely by infectious disease and orthopedics. She did have a low-grade temp of 100.1 last night. Patient does report a throbbing pain in the left foot controlled with the oxycodone. Denies any chest pain or shortness of breath. Denies any nausea or vomiting. Reports regular bowel movements. Denies any burning with urination. Objective - Vital Signs Vital signs: Vital Signs Temp 98.2 F 11/09/17 05:58 Pulse 77 11/09/17 05:58 Resp 18 11/09/17 05:58 BP 128/67 11/09/17 05:58 Pulse Ox 91 L 11/09/17 05:58 Intake & Output 11/08/17 11/09/17 11/09/17 18:59 06:59 18:59 Intake Total 201 Output Total 305 Balance -104 Intake: IV 201 Output: Urine 300 Estimated Blood Loss 5 Other: # Voids 2 3 2 # Bowel Movements 1 - Exam Mouth ulcers and thrush Head normocephalic Neck supple Lungs clear to auscultation bilaterally no wheezing or crackles Heart regular rate and rhythm S1-S2, no rub or gallop Abdomen is soft nontender nondistended positive bowel sounds no hepatosplenomegaly Extremities left foot is a strapped there is a serous drainage on the bandage Neuro alert and orientated to 3 - Labs CBC & Chem 7: 11/09/17 09:15 11/08/17 03:47 Labs: Abnormal Lab Results - Last 24 Hours (Table) 11/09/17 Range/Units 09:15 RBC 3.53 L (3.80-5.40) m/uL Hgb 10.8 L (11.4-16.0) gm/dL Hct 32.7 L (34.0-46.0) % Microbiology - Last 24 Hours (Table) 11/04/17 19:35 Blood Culture - Preliminary Blood No Growth after 96 hours 11/08/17 10:30 Gram Stain - Preliminary Foot - Left Wound Culture - Preliminary 11/08/17 10:30 Gram Stain - Preliminary Foot - Left Wound Culture - Preliminary 11/08/17 10:30 Anaerobic Culture - Preliminary Foot - Left 11/08/17 10:30 Anaerobic Culture - Preliminary Foot - Left Assessment and Plan Assessment: 1. Left foot cellulitis with abscess after a syringe needle stick: Status post I&D. Cultures are pending. Continue Zosyn and vancomycin. Infectious disease and orthopedics are following. Patient received tetanus injection. Hepatitis screen and HIV screen negative. Computed tomography scan of the foot showing subcutaneous edema with fluid collection questionable edema versus abscess. Also evidence of cellulitis. 2. Sepsis secondary to the left foot cellulitis and abscess present on admission: Continue antibiotics. Await cultures. Lactic acid has normalized. Patient has ALLERGY to acetaminophen and is unable to take NSAIDs to help reduce fever. 3. Acute kidney injury: Likely related to dehydration patient did have a poor oral intake prior to admission. Patient will be continued on IV fluids. Discontinue all NSAIDs. Watch closely while patient is on vancomycin. Kidney function has improved 4. Hypokalemia : Resolved 5. 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 Hypothyroidism continue Synthroid 7. Iron deficiency anemia: Iron level of 8. Patient will be placed on ferrous sulfate 325 mg twice a day GI prophylaxis Protonix and DVT prophylaxis subcu heparin I performed an examination of the patient and discussed their management with the physician Youth Director. I have reviewed the Physician Youth Director's notes and agree with the documented findings and plan of care
--- NOTE | 2017-11-09 14:25 | P.PN ---
Subjective Progress Note Date: 11/09/17 Principal diagnosis: Left foot cellulitis/ infection Patient is a 47-year-old female seen at bedside this afternoon. She is postop day #1 from I&D of her left dorsal foot infection. She has pain at the surgical site in the area of the dorsum of the foot as expected. She has been on IV Vancomycin and Zosyn per infectious disease. She denies any new numbness or tingling. She is currently denying fever, chills, chest pain, calf pain, shortness of breath, new numbness or tingling, dizziness, headaches, slurred speech or other. Objective - Vital Signs Vital signs: Vital Signs Temp 97.0 F L 11/09/17 14:11 Pulse 78 11/09/17 14:11 Resp 16 11/09/17 14:11 BP 113/67 11/09/17 14:11 Pulse Ox 96 11/09/17 14:11 Intake & Output 11/08/17 11/09/17 11/09/17 18:59 06:59 18:59 Intake Total 201 Output Total 305 Balance -104 Intake: IV 201 Output: Urine 300 Estimated Blood Loss 5 Other: # Voids 2 3 3 # Bowel Movements 1 - Exam Surgical dressing was removed. There is evidence of serous drainage on the bandage and minimal bleeding. There is no purulent drainage from the surgical wound. Packing is removed without complication. No active bleeding. There is continued diffuse erythema across the dorsum of the foot. It has not progressed further from previous demarcation outlined. There is no erythema on the plantar surface. There is no new blistering at the dorsum and proximal portion of the left foot. The foot is warm to touch. There is less than 2 second capillary refill in all digits. She is able to wiggle the toes. There is diffuse edema across the dorsum of the foot. The calf is soft and nontender. Motor and sensation is intact. Vascular status is intact. The dorsum of the foot was redressed with nonstick Adaptic and then sterile 4 x 4's , Kerlix and Edin bandage. - Constitutional General appearance: Present: no acute distress - Psychiatric Psychiatric: Present: A&O x's 3, appropriate affect, intact judgment & insight - Labs CBC & Chem 7: 11/09/17 09:15 11/09/17 09:15 Labs: Abnormal Lab Results - Last 24 Hours (Table) 11/09/17 11/09/17 Range/Units 09:15 09:15 RBC 3.53 L (3.80-5.40) m/uL Hgb 10.8 L (11.4-16.0) gm/dL Hct 32.7 L (34.0-46.0) % Glucose 128 H (74-99) mg/dL AST 13 L (14-36) U/L Total Protein 5.3 L (6.3-8.2) g/dL Albumin 2.7 L (3.5-5.0) g/dL Microbiology - Last 24 Hours (Table) 11/04/17 19:35 Blood Culture - Preliminary Blood No Growth after 96 hours 11/08/17 10:30 Gram Stain - Preliminary Foot - Left Wound Culture - Preliminary 11/08/17 10:30 Gram Stain - Preliminary Foot - Left Wound Culture - Preliminary 11/08/17 10:30 Anaerobic Culture - Preliminary Foot - Left 11/08/17 10:30 Anaerobic Culture - Preliminary Foot - Left Assessment and Plan (1) Cellulitis Narrative/Plan: The foot appears stable today postop from I&D. Dressing has been changed. Recommend continued elevation above the heart, pain management, twice a day wound care/dressing changes and whirlpool if possible. Cultures are pending. Continue IV antibiotics per infectious disease. We'll continue to monitor closely. Current Visit: Yes Status: Acute Priority: Medium Code(s): L03.90 - CELLULITIS, UNSPECIFIED SNOMED Code(s): 786529820 Time with Patient: Less than 30
--- NOTE | 2017-11-09 20:51 | PN ---
PROGRESS NOTE DATE OF SERVICE: 11/09/2017 REASON FOR FOLLOWUP: Left foot abscess and cellulitis. INTERVAL HISTORY: The patient is afebrile. She is breathing comfortably. Still complaining of pain to the left foot area, though it has improved in severity. No chest pain. No cough. No abdominal pain. PHYSICAL EXAMINATION: Blood pressure 113/67 with a pulse of 70, temperature 97. She is 96% on room air. General description is a middle-aged female lying in bed in no distress. RESPIRATORY SYSTEM: Unlabored breathing. Clear to auscultation anteriorly. HEART: S1, S2. Regular rate and rhythm. ABDOMEN: Soft. No tenderness. Left foot is currently dressed up; no obvious drainage on the dressing. LABS: Hemoglobin is 10.8, white count of 8.8 with a BUN of 10, creatinine 0.90. Wound culture is currently pending. DIAGNOSTIC IMPRESSION AND PLAN: Patient with a left foot abscess and cellulitis, status post drainage of the abscess. Cultures are currently pending. Patient is currently covered with broad-spectrum antibiotics in the form of vancomycin and Zosyn. That will be continued. In view of the extensive infection, the patient will likely need outpatient IV antibiotic therapy, for which a midline will be placed. Discharge antibiotic depending upon the culture report. Continue with supportive care. MMODL / IJN: [id number] /
[2017-11-10] MEDS: PIPERACILLIN-TAZOBACTAM 3.375 GM in DEXTROSE/WATER 1 50ML.BAG IVPB SCH ×2 (00:44→09:09)
[2017-11-10] MEDS: VANCOMYCIN 1,500 MG in SODIUM CHLORIDE 0.9% 250 ML IVPB SCH (05:37)
[2017-11-10] MEDS: LEVOTHYROXINE 100 MCG TAB PO SCH (06:16)
[2017-11-10] MEDS: PANTOPRAZOLE 40 MG TABLET PO SCH (09:09)
[2017-11-10] MEDS: FERROUS SULFATE 325 MG TAB PO SCH ×2 (09:10→21:34)
[2017-11-10] MEDS: FOLIC ACID 1 MG TAB PO SCH (09:10)
[2017-11-10] MEDS: BACLOFEN 10 MG TAB PO SCH ×3 (09:10→21:34)
[2017-11-10] MEDS: DOCUSATE 100 MG CAP PO SCH ×2 (09:10→21:34)
[2017-11-10] MEDS: GABAPENTIN 300 MG CAP PO SCH ×3 (09:11→21:34)
[2017-11-10] MEDS: LORATADINE 10 MG TAB PO SCH (09:11)
[2017-11-10] MEDS: HEPARIN SODIUM,PORCINE 5,000 UNIT/ML 1 ML VIAL SQ SCH ×2 (09:11→21:34)
[2017-11-10] MEDS: LACTATED RINGERS 1,000 ML IV SCH (09:12)
[2017-11-10] MEDS: OXYBUTYNIN CHLORIDE 5 MG TAB PO SCH ×3 (09:12→21:34)
[2017-11-10] MEDS: MAG HYDROX/AL HYDROX/SIMETH 30 ML, LIDOCAINE VISCOUS 30 ML, diphenhydrAMINE ELIXIR 75 M... PO SCH ×12 (09:12→21:34)
[2017-11-10] MEDS: PYRIDOXINE 50 MG TAB PO SCH (09:12)
[2017-11-10] MEDS: HYDROmorphone 0.5 MG/0.5 ML SYRINGE IVP PRN (09:14)
[2017-11-10 10:21] LABS: Calcium 8.6 mg/dL (8.4-10.2); Potassium 4.3 mmol/L (3.5-5.1)
--- NOTE | 2017-11-10 10:47 | P.PN ---
Subjective Progress Note Date: 11/10/17 Principal diagnosis: Left foot cellulitis/ infection Patient is a 47-year-old female seen at bedside this morning. She is postop day #2 from I&D of her left dorsal foot infection. She has pain at the surgical site in the area of the dorsum of the foot as expected. She has been on IV Vancomycin and Zosyn per infectious disease. She denies any new numbness or tingling. She is currently denying fever, chills, chest pain, calf pain, shortness of breath, new numbness or tingling, dizziness, headaches, slurred speech or other. Objective - Vital Signs Vital signs: Vital Signs Temp 98.3 F 11/09/17 22:58 Pulse 74 11/09/17 22:58 Resp 18 11/09/17 22:58 BP 124/74 11/09/17 22:58 Pulse Ox 95 11/09/17 22:58 Intake & Output 11/09/17 11/10/17 11/10/17 18:59 06:59 18:59 Other: Voiding Method Bedside Commode Bedside Commode Bedside Commode # Voids 3 3 1 - Exam Surgical dressing was removed. There is evidence of serous drainage on the bandage and minimal bleeding. There is no purulent drainage from the surgical wound. No active bleeding. There is continued diffuse erythema across the dorsum of the foot and from sloughing of the skin and blister. It has not progressed further from previous demarcation outlined. There is no erythema on the plantar surface. There is no new blistering at the dorsum and proximal portion of the left foot. The foot is warm to touch. There is less than 2 second capillary refill in all digits. She is able to wiggle the toes. There is diffuse edema across the dorsum of the foot. The calf is soft and nontender. Motor and sensation is intact. Vascular status is intact. Silvadene was applied and being redressed by her nurse. - Constitutional General appearance: Present: no acute distress - Psychiatric Psychiatric: Present: A&O x's 3, appropriate affect, intact judgment & insight - Labs CBC & Chem 7: 11/09/17 09:15 11/10/17 09:50 Labs: Abnormal Lab Results - Last 24 Hours (Table) 11/10/17 Range/Units 09:50 Chloride 109 H (98-107) mmol/L Glucose 110 H (74-99) mg/dL Microbiology - Last 24 Hours (Table) 11/08/17 10:30 Gram Stain - Preliminary Foot - Left Wound Culture - Preliminary Strep pyogenes (grp a) 11/08/17 10:30 Gram Stain - Preliminary Foot - Left Wound Culture - Preliminary Strep pyogenes (grp a) 11/04/17 19:35 Blood Culture - Preliminary Blood No Growth after 120 hours Assessment and Plan (1) Cellulitis Narrative/Plan: The foot continues to appears stable today postop from I&D. Dressing has been changed again with silvadene applied. Recommend continued elevation above the heart, pain management, twice a day wound care/dressing changes and whirlpool if possible. She is afebrile and WBC is normal. Cultures are showing Grp A strep pyogenes. Continue IV antibiotics per infectious disease. We'll continue to monitor closely. Current Visit: Yes Status: Acute Priority: Medium Code(s): L03.90 - CELLULITIS, UNSPECIFIED SNOMED Code(s): 631236769 Time with Patient: Less than 30
--- NOTE | 2017-11-10 11:31 | P.PN ---
Subjective Progress Note Date: 11/10/17 This is a 47-year-old female, patient of Dr. Haque. 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 She also has history of MRSA in her blood stream and hypothyroidism. Patient presents to the emergency room with increased swelling redness and bruising of her left foot that streaking up into the left tibia area. She reports about 4 days ago she was walking her dog and had walked through some brush and a needle with a syringe poked into her foot. Patient has no sensation in that foot she did not realize initially that she had been poked. Later she was able to pull the syringe and needle out of her foot. She reports over the last 2 days she's had increased swelling redness in that foot. No drainage. She has been febrile. And also having episodes of confusion. Patient is brought into the emergency room with a temp of 100.8 and has gone up 101.3 she was also tachycardic. White count 16.6. Lactic acid 2.3 she also had episode of hypotension blood pressure 86/53. She was given IV fluid boluses. And started on vancomycin and Zosyn in the emergency room. Blood cultures pending. Infectious disease is been consulted. Patient has ALLERGY to acetaminophen. Unable to give any more Motrin. Patient had elevated creatinine level of 1.4. Creatinine has come down to 1.2. She'll be given IV fluids and packed in ice. Patient denies any chest pain. Doesn't having some shortness of breath earlier when she was having the fevers. This has resolved. Denies any nausea or vomiting. Denies any bowel movement changes or urinary symptoms 11/06/2017 patient still having significant swelling and redness of the left foot. Blisters have started to form since yesterday afternoon. She is remained afebrile. Creatinine has normalized at 0.90. Hepatitis panel and HIV screen negative. Patient followed by infectious disease. Patient denies any chest pain or shortness of breath. Denies any nausea or vomiting. 11/09/2017 patient is status post I&D on 11/08/2017. Left foot is bandaged. She is having a yellowish drainage from the foot. Followed closely by infectious disease and orthopedics. She did have a low-grade temp of 100.1 last night. Patient does report a throbbing pain in the left foot controlled with the oxycodone. Denies any chest pain or shortness of breath. Denies any nausea or vomiting. Reports regular bowel movements. Denies any burning with urination. 11/10/2017 orthopedics have change the dressing on her left foot. Patient was still having a serous type drainage. Infectious disease has adjusted antibiotics. They have added clindamycin. And discontinued vancomycin and Zosyn. Patient reports having bowel movements. Denies difficulty urinating. She reports having some difficulty working with physical therapy Objective - Vital Signs Vital signs: Vital Signs Temp 98.3 F 11/09/17 22:58 Pulse 74 11/09/17 22:58 Resp 18 11/09/17 22:58 BP 124/74 11/09/17 22:58 Pulse Ox 95 11/09/17 22:58 Intake & Output 11/09/17 11/10/17 11/10/17 18:59 06:59 18:59 Other: Voiding Method Bedside Commode Bedside Commode Bedside Commode # Voids 3 3 1 - Exam Mouth ulcers and thrush Head normocephalic Neck supple Lungs clear to auscultation bilaterally no wheezing or crackles Heart regular rate and rhythm S1-S2, no rub or gallop Abdomen is soft nontender nondistended positive bowel sounds no hepatosplenomegaly Extremities left foot is wrapped in bandages clean dry and intact Neuro alert and orientated to 3 - Labs CBC & Chem 7: 11/09/17 09:15 11/10/17 09:50 Labs: Abnormal Lab Results - Last 24 Hours (Table) 11/10/17 Range/Units 09:50 Chloride 109 H (98-107) mmol/L Glucose 110 H (74-99) mg/dL Microbiology - Last 24 Hours (Table) 11/08/17 10:30 Anaerobic Culture - Preliminary Foot - Left 11/08/17 10:30 Anaerobic Culture - Preliminary Foot - Left 11/08/17 10:30 Gram Stain - Preliminary Foot - Left Wound Culture - Preliminary Strep pyogenes (grp a) 11/08/17 10:30 Gram Stain - Preliminary Foot - Left Wound Culture - Preliminary Strep pyogenes (grp a) 11/04/17 19:35 Blood Culture - Preliminary Blood No Growth after 120 hours Assessment and Plan Assessment: 1. Left foot cellulitis with abscess after a syringe needle stick: Status post I&D. Infectious disease and orthopedics are following. Patient received tetanus injection. Hepatitis screen and HIV screen negative. Computed tomography scan of the foot showing subcutaneous edema with fluid collection questionable edema versus abscess. Also evidence of cellulitis. Wound culture growing strep pygenes Group A. Infectious disease has adjusted antibiotics, vancomycin and Zosyn discontinued and they've added Cleocin 2. Sepsis secondary to the left foot cellulitis and abscess present on admission: Continue antibiotics. Lactic acid has normalized. Patient has ALLERGY to acetaminophen and is unable to take NSAIDs to help reduce fever. 3. Acute kidney injury: Likely related to dehydration patient did have a poor oral intake prior to admission. Patient will be continued on IV fluids. Discontinue all NSAIDs. Watch closely while patient is on vancomycin. Kidney function has improved 4. Hypokalemia : Resolved 5. 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 Hypothyroidism continue Synthroid 7. Iron deficiency anemia: Iron level of 8. Patient will be placed on ferrous sulfate 325 mg twice a day GI prophylaxis Protonix and DVT prophylaxis subcu heparin I performed an examination of the patient and discussed their management with the physician Desktop Support Consultant. I have reviewed the Physician Desktop Support Consultant's notes and agree with the documented findings and plan of care
[2017-11-10] MEDS: MAGNESIUM OXIDE 400 MG TAB PO SCH (14:21)
[2017-11-10] MEDS: CLINDAMYCIN 900 MG in DEXTROSE 5% IN WATER 50 ML IVPB SCH ×2 (15:41)
--- NOTE | 2017-11-10 16:51 | P.CONS ---
History of Present Illness - Chief Complaint Walking difficulty due to left foot cellulitis - History of Present Illness I had the opportunity to see patient for rehab consultation with regard to left foot swelling and infection. She was admitted to [facility] November 04 history of walking her dog and left foot standby medical syringe. Within 2 days, the foot is swollen. X-ray negative for fracture but positive for fluid. CT demonstrates extensive edema and fluid collection. MRI demonstrates dorsal fluid accumulation. Seen by Dr. Todd Graham. PT reports modified independent with bed mobility and supervision to stand and transfer. Declined treatment today. I have just added OT. Previous functional history elicited patient: 47-year-old right-handed white female who is single lives and 2 floor home with friend. On disability. Describes friend does the laundry. Patient independent with cooking, standing shower and gait with standard cane. Uses bus for transportation. History smoking remote past but doesn't smoke currently. Rare drink. Dr. Haque is regular doctor. Family history both parents smokers in distant past. Review of Systems Review of systems: : Discoloration left foot. ENT: Denies sneezes or discharge. Eyes: Denies discharge or photophobia. Cardiac: Denies chest pain or palpitation. Pulmonary: Denies cough or shortness of breath. Breast: Denies discharge or lumps. Gastrointestinal: Denies nausea, emesis, constipation, diarrhea. Genitourinary: Denies discharge or frequency. Musculoskeletal: Left foot pain and swelling and discoloration. Neurologic: Denies motor or sensory change. Endocrine: Denies shakes or sweats. Oncology: Denies cancers. Dermatologic: Denies rash, itching, pruritus. ALLERGY/immunology: Denies sneezes, rashes. 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 Year Discovered:: 01/08/17 MDRO Source:: BLOOD Past Surgical History: Appendectomy, No Surgical Hx Reported, Tubal Ligation, Unable to Obtain Additional Past Surgical History / Comment(s): neck fusion Past Anesthesia/Blood Transfusion Reactions: No Reported Reaction, Unable to Obtain Past Psychological History: No Psychological Hx Reported, Unable to Obtain Smoking Status: Former smoker Past Alcohol Use History: None Reported Past Drug Use History: None Reported Additional Drug Use History / Comment(s): tox screen positive - Past Family History Father History Unknown: Yes Family Medical History: Unable to Obtain Mother History Unknown: Yes Family Medical History: Unable to Obtain Medications and Allergies Home Medications Medication Instructions Recorded Confirmed Type Pyridoxine [Vitamin B-6] 50 mg PO DAILY 01/08/17 11/04/17 History Loratadine [Claritin] 10 mg PO DAILY 02/01/17 11/04/17 History Omeprazole [PriLOSEC] 40 mg PO DAILY 02/01/17 11/04/17 History Baclofen [Lioresal] 20 mg PO TID 11/04/17 11/04/17 History Folic Acid 0.4 mg PO DAILY 11/04/17 11/04/17 History Gabapentin [Neurontin] 600 mg PO TID 11/04/17 11/05/17 History Levothyroxine Sodium [Synthroid] 100 mcg PO DAILY 11/04/17 11/04/17 History Naproxen [Naprosyn] 500 mg PO BID 11/04/17 11/04/17 History Oxybutynin Chloride [Ditropan] 5 mg PO TID 11/04/17 11/04/17 History Allergies Allergy/AdvReac Type Severity Reaction Status Date / Time acetaminophen Allergy Unknown Verified 11/04/17 20:01 aspirin Allergy Rash/Hives Verified 11/04/17 20:01 Physical Exam Vitals: Vital Signs Temp Pulse Resp BP Pulse Ox 11/10/17 02:50 97.2 F L 69 18 134/59 98 11/09/17 22:58 98.3 F 74 18 124/74 95 Intake and Output 11/10/17 11/10/17 11/10/17 06:59 14:59 22:59 Other: Voiding Method Bedside Commode Bedside Commode # Voids 3 3 3 # Bowel Movements 1 1 Skin: Good color, texture, turgor. General: Overweight build and comfortable appearance. Head: Normocephalic, atraumatic. Eyes: Symmetric. Pupils equal round. Ears: Symmetric. Hearing within normal limits. Mouth: Clear. Neck: Supple. Carotid without bruit. Cardiac: Regular rate and rhythm. Lungs: Clear anteriorly and posteriorly. Abdomen: Soft active nontender. Extremities: Normal tone. Left foot wrapped with Edin wrap. Discoloration of toes noted. Neurological: Mental status: Alert, cooperative, pleasant. Cranial nerves: Symmetric facial tone and trapezius. Motor: Normal strength and isolation all 4 limbs except poor movement left ankle and toes. Sensation: Intact throughout. Did not examine left foot closely for sensory exam. DTRs: Symmetric and equal throughout. Mobility: Did not attempt to sit or stand at this time. Results CBC & Chem 7: 11/09/17 09:15 11/10/17 09:50 Labs: Abnormal Lab Results - Last 24 Hours (Table) 11/10/17 Range/Units 09:50 Chloride 109 H (98-107) mmol/L Glucose 110 H (74-99) mg/dL Microbiology - Last 24 Hours (Table) 11/08/17 10:30 Anaerobic Culture - Preliminary Foot - Left 11/08/17 10:30 Anaerobic Culture - Preliminary Foot - Left 11/08/17 10:30 Gram Stain - Preliminary Foot - Left Wound Culture - Preliminary Strep pyogenes (grp a) 11/08/17 10:30 Gram Stain - Preliminary Foot - Left Wound Culture - Preliminary Strep pyogenes (grp a) 11/04/17 19:35 Blood Culture - Preliminary Blood No Growth after 120 hours Assessment and Plan (1) Cellulitis Current Visit: Yes Status: Acute Priority: Medium Code(s): L03.90 - CELLULITIS, UNSPECIFIED SNOMED Code(s): 430867103 (2) Other encephalopathy Current Visit: No Status: Acute Code(s): G93.49 - OTHER ENCEPHALOPATHY SNOMED Code(s): 5639292 Plan: Impression: 1. Walking difficulty. 2. Left foot swelling and cellulitis. 3. Encephalopathy with intractable seizure. 4. Acute on chronic respiratory failure. 5. History of spinal cord stroke with left hemiparesthesias. Comments and plan: PT prescribed and I have added OT. Follow therapies with yourself. Patient is aware hopeful for possible inpatient rehab. She of course must participate with therapies out of bed.
--- NOTE | 2017-11-10 20:47 | PN ---
PROGRESS NOTE DATE OF SERVICE: 11/10/2017 REASON FOR FOLLOWUP: Left foot abscess and cellulitis. INTERVAL HISTORY: The patient is afebrile. She is breathing comfortably. Pain to the left foot is currently slightly better. Denies having any chest pain, shortness of breath or cough. No abdominal pain or any diarrhea. PHYSICAL EXAMINATION: Blood pressure 134/59 with a pulse of 79, temperature 97.2. She is 98% on room air. General description is a middle-aged female lying in bed in no distress. RESPIRATORY SYSTEM: Unlabored breathing. Clear to auscultation anteriorly. HEART: S1, S2. Regular rate and rhythm. ABDOMEN: Soft. No tenderness. Left foot is currently dressed up. No significant drainage on the dressing. LABS: BUN of 10, creatinine 0.90. Culture positive for Streptococcus pyogenes. DIAGNOSTIC IMPRESSION AND PLAN: Patient with left foot abscess and cellulitis, status post drainage; culture positive for Streptococcus pyogenes. Antibiotic has been adjusted to cefazolin and clindamycin. Discontinue vancomycin and Zosyn. Patient will need to be on that for outpatient IV antibiotic therapy in view of the extensive infection. Continue with supportive care. MMODL / IJN: [id number] /
[2017-11-11] MEDS: CLINDAMYCIN 900 MG in DEXTROSE 5% IN WATER 50 ML IVPB SCH ×6 (00:08→16:15)
[2017-11-11] MEDS: traMADol 50 MG TAB PO PRN ×3 (01:39→20:34)
[2017-11-11] MEDS: LEVOTHYROXINE 100 MCG TAB PO SCH (06:26)
[2017-11-11] MEDS: BACLOFEN 10 MG TAB PO SCH ×3 (08:18→20:29)
[2017-11-11] MEDS: FERROUS SULFATE 325 MG TAB PO SCH ×2 (08:18→20:29)
[2017-11-11] MEDS: DOCUSATE 100 MG CAP PO SCH ×2 (08:18→20:29)
[2017-11-11] MEDS: PANTOPRAZOLE 40 MG TABLET PO SCH (08:18)
[2017-11-11] MEDS: HEPARIN SODIUM,PORCINE 5,000 UNIT/ML 1 ML VIAL SQ SCH ×2 (08:19→20:29)
[2017-11-11] MEDS: FOLIC ACID 1 MG TAB PO SCH (08:19)
[2017-11-11] MEDS: GABAPENTIN 300 MG CAP PO SCH ×3 (08:19→20:29)
[2017-11-11] MEDS: OXYBUTYNIN CHLORIDE 5 MG TAB PO SCH ×3 (08:20→20:29)
[2017-11-11] MEDS: MAG HYDROX/AL HYDROX/SIMETH 30 ML, LIDOCAINE VISCOUS 30 ML, diphenhydrAMINE ELIXIR 75 M... PO SCH ×12 (08:20→20:30)
[2017-11-11] MEDS: PYRIDOXINE 50 MG TAB PO SCH (08:20)
[2017-11-11] MEDS: LORATADINE 10 MG TAB PO SCH (08:20)
[2017-11-11] MEDS: LACTATED RINGERS 1,000 ML IV SCH (08:21)
[2017-11-11 09:55] LABS: Anion Gap 15 mmol/L; Blood Urea Nitrogen 8 mg/dL (7-17); Calcium 8.2 mg/dL (8.4-10.2); Carbon Dioxide 22 mmol/L (22-30); Chloride 105 mmol/L (98-107); Glucose 181 mg/dL (74-99); Magnesium 1.9 mg/dL (1.6-2.3); Potassium 3.2 mmol/L (3.5-5.1); Sodium 142 mmol/L (137-145)
[2017-11-11 10:10] LABS: HCT 33.3 % (34.0-46.0); HGB 11.2 gm/dL (11.4-16.0); MCH 30.6 pg (25.0-35.0); MCHC 33.6 g/dL (31.0-37.0); MCV 91.1 fL (80.0-100.0); Mean Platelet Volume 7.1; Platelet Count 438 k/uL (150-450); RBC 3.66 m/uL (3.80-5.40); RDW 13.1 % (11.5-15.5); WBC 8.6 k/uL (3.8-10.6)
[2017-11-11 10:44] LABS: Band Neutrophils % 1 %; Eosinophils # (M) 0.17 k/uL (0-0.7); Metamyelocytes # (M) 0.09 k/uL (0); Metamyelocytes % 1 %; Monocytes # (M) 0.43 k/uL (0-1.0); Myelocytes # (M) 0.26 k/uL (0); Myelocytes % 3 %; Neutrophils % (M) 75 %; Nucleated Red Blood Cells 0 /100 WBC (0-0); Total Cells Counted 200; Toxic Granulation Present
[2017-11-11 10:45] LABS: Anisocytosis (M) Present; Poikilocytosis (M) Present
[2017-11-11] MEDS: HYDROmorphone 0.5 MG/0.5 ML SYRINGE IVP PRN (10:47)
[2017-11-11] MEDS ORDERED: Potassium Replacement Protocol 1 EACH MISC MISCELLANE PRN (11:42)
[2017-11-11] MEDS: POTASSIUM CHLORIDE ER 20 MEQ TAB.ER PO SCH ×2 (12:27→13:24)
[2017-11-11] MEDS: MAGNESIUM OXIDE 400 MG TAB PO SCH (12:28)
--- NOTE | 2017-11-11 13:07 | P.PN ---
Subjective Progress Note Date: 11/11/17 This is a 47-year-old female, patient of Dr. Haque. 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 She also has history of MRSA in her blood stream and hypothyroidism. Patient presents to the emergency room with increased swelling redness and bruising of her left foot that streaking up into the left tibia area. She reports about 4 days ago she was walking her dog and had walked through some brush and a needle with a syringe poked into her foot. Patient has no sensation in that foot she did not realize initially that she had been poked. Later she was able to pull the syringe and needle out of her foot. She reports over the last 2 days she's had increased swelling redness in that foot. No drainage. She has been febrile. And also having episodes of confusion. Patient is brought into the emergency room with a temp of 100.8 and has gone up 101.3 she was also tachycardic. White count 16.6. Lactic acid 2.3 she also had episode of hypotension blood pressure 86/53. She was given IV fluid boluses. And started on vancomycin and Zosyn in the emergency room. Blood cultures pending. Infectious disease is been consulted. Patient has ALLERGY to acetaminophen. Unable to give any more Motrin. Patient had elevated creatinine level of 1.4. Creatinine has come down to 1.2. She'll be given IV fluids and packed in ice. Patient denies any chest pain. Doesn't having some shortness of breath earlier when she was having the fevers. This has resolved. Denies any nausea or vomiting. Denies any bowel movement changes or urinary symptoms 11/06/2017 patient still having significant swelling and redness of the left foot. Blisters have started to form since yesterday afternoon. She is remained afebrile. Creatinine has normalized at 0.90. Hepatitis panel and HIV screen negative. Patient followed by infectious disease. Patient denies any chest pain or shortness of breath. Denies any nausea or vomiting. On 11/07/2017 patient is alert and oriented 3 in no apparent distress complaining of pain in the left foot otherwise no complaints at this time, white blood count is down to 10.3, there is no fever or chills no cough no chest pain or shortness of breath no nausea or vomiting no abdominal pain and no urinary symptoms On 11/08/2017 patient is alert and oriented 3 in no apparent distress she underwent incision and drainage of the left dorsal foot today with Dr. Graham at this time she denies any pain or discomfort. There is no fever or chills no headache no dizziness no chest pain no shortness of breath no cough no nausea or vomiting no abdominal pain no diarrhea and no urinary symptoms. 11/09/2017 patient is status post I&D on 11/08/2017. Left foot is bandaged. She is having a yellowish drainage from the foot. Followed closely by infectious disease and orthopedics. She did have a low-grade temp of 100.1 last night. Patient does report a throbbing pain in the left foot controlled with the oxycodone. Denies any chest pain or shortness of breath. Denies any nausea or vomiting. Reports regular bowel movements. Denies any burning with urination. 11/10/2017 orthopedics have change the dressing on her left foot. Patient was still having a serous type drainage. Infectious disease has adjusted antibiotics. They have added clindamycin. And discontinued vancomycin and Zosyn. Patient reports having bowel movements. Denies difficulty urinating. She reports having some difficulty working with physical therapy. On 11/11/2017 patient is alert and oriented 3 sitting up in a chair she has severe pain when dressing is being changed otherwise pain is tolerable she will have a PICC line placed for IV antibiotic post discharge she is still making her mind up about going to a rehab place. She is complaining of foot pain otherwise she denies any complaints there is no fever or chills no headache or dizziness no chest pain or shortness of breath no cough no nausea or vomiting no diarrhea no abdominal pain and no urinary symptoms Objective - Vital Signs Vital signs: Vital Signs Temp 99.4 F 11/11/17 05:55 Pulse 87 11/11/17 05:55 Resp 14 11/11/17 05:55 BP 110/60 11/11/17 05:55 Pulse Ox 94 L 11/11/17 05:55 Intake & Output 11/10/17 11/11/17 11/11/17 18:59 06:59 18:59 Other: Voiding Method Bedside Commode Bedside Commode Bedside Commode # Voids 2 2 # Bowel Movements 1 1 - Exam Mouth ulcers and thrush Head normocephalic and atraumatic Neck supple no JVD no goiter Lungs clear to auscultation bilaterally no wheezing or crackles Heart regular rate and rhythm S1-S2, no rub or gallop Abdomen is soft nontender nondistended positive bowel sounds no hepatosplenomegaly Extremities no edema. Left foot is swollen evidence of cellulitis changes and bruising. Patient is status post incision and drainage of the left dorsal foot she has a cast on her left lower extremity. Neuro alert and orientated to 3 - Labs CBC & Chem 7: 11/11/17 09:23 11/11/17 09:23 Labs: Abnormal Lab Results - Last 24 Hours (Table) 11/11/17 11/11/17 Range/Units : 09:23 RBC 3.66 L (3.80-5.40) m/uL Hgb 11.2 L (11.4-16.0) gm/dL Hct 33.3 L (34.0-46.0) % Metamyelocytes # (Man) 0.09 H (0) k/uL Myelocytes # (Manual) 0.26 H (0) k/uL Potassium 3.2 L (3.5-5.1) mmol/L Glucose 181 H (74-99) mg/dL Calcium 8.2 L (8.4-10.2) mg/dL Microbiology - Last 24 Hours (Table) 11/08/17 10:30 Gram Stain - Final Foot - Left Wound Culture - Final Strep pyogenes (grp a) 11/08/17 10:30 Gram Stain - Preliminary Foot - Left Wound Culture - Preliminary Strep pyogenes (grp a) 11/04/17 19:35 Blood Culture - Final Blood No Growth after 144 hours 11/08/17 10:30 Anaerobic Culture - Preliminary Foot - Left 11/08/17 10:30 Anaerobic Culture - Preliminary Foot - Left Assessment and Plan Plan: 1. Left foot cellulitis after a syringe needle stick: Infectious disease will be consulted. Patient started on vancomycin and Zosyn. Patient received tetanus injection. Patient underwent incision and drainage of the left dorsal foot today. Hepatitis screen and HIV screen negative. Computed tomography scan of the foot showing subcutaneous edema with fluid collection questionable edema versus abscess. Also evidence of cellulitis. Infectious disease following. MRI done and did not reveal any clear evidence of osteomyelitis. Blood cultures are so far negative. Awaiting wound culture. 2. Sepsis secondary to the left foot cellulitis present on admission: Continue with IV fluids and antibiotics. Lactic acid has normalized. Patient has ALLERGY to acetaminophen and is unable to take NSAIDs to help reduce fever. At this time we'll continue with IV fluids and we'll pack patient in ice 3. Acute kidney injury: Likely related to dehydration patient did have a poor oral intake prior to admission. Patient will be continued on IV fluids. Discontinue all NSAIDs. Watch closely while patient is on vancomycin. Kidney function has improved 4. Hypokalemia : Patient continues to have a low potassium level. Give K Dur 40 mEq now. Also check magnesium level 5. 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 Hypothyroidism continue Synthroid 7. Anemia: No active signs of bleeding. Hemoglobin 10.2. Check iron studies This time recommendation per Dr. Marquez history give IV antibiotic after discharge, will proceed with PICC line placement possible discharge tomorrow GI prophylaxis Protonix and DVT prophylaxis subcu heparin
[2017-11-11] MEDS ORDERED: LIDOCAINE 2% INJ 20 MG/ML (20 ML MDV) ONE (13:43)
[2017-11-11] MEDS ORDERED: LIDOCAINE 2% INJ 20 MG/ML SQ ONE (14:13)
--- NOTE | 2017-11-11 14:48 | IR ---
EXAMINATION TYPE: IR cvc insert >=5 years DATE OF EXAM: 11/11/2017 COMPARISON: NONE CLINICAL HISTORY: Infection Needs long-term intravenous access for antibiotics. PROCEDURE: After informed consent, the skin overlying the left basilic vein was localized with ultrasound and no lazaro to be compressible and patent. An ultrasound image was obtained and submitted on the patient's c camejo. The overlying skin was prepped and draped and Lidocaine was used for local anesthesia. A skin holger was made with a scalpel. Access was gained to the vein under ultrasound guidance with a 21 gau ge needle and a 0.018 inch wire was advanced. Access site was dilated with Peel-Away sheath and cath eter tailored to the appropriate length and advanced such that the distal tip is at the cavoatrial ju nction. Spot image was obtained verifying placement. Catheter was fixed to the skin, and a sterile dressing was placed following hemostasis. Catheter was aspirated and flushed with saline. Patient w as discharged in stable condition without complication.Maximal barrier technique is utilized. Ultras ound image is documented on the chart. Ultrasound used with sterile technique. Fluoro time and fluoroscopic images submitted to document procedure: 0.2 minutes fluoroscopy time, 17 90 intraoperative images IMPRESSION: STATUS POST ULTRASOUND AND FLUOROSCOPIC GUIDED PICC LINE PLACEMENT, READY FOR USE. THIS PROCEDURE WAS PERFORMED BY THE UNDERSIGNED.
[2017-11-11 15:54] VITALS: RESP 16
--- NOTE | 2017-11-11 16:08 | P.PN ---
Subjective Progress Note Date: 11/11/17 Principal diagnosis: Left foot cellulitis/ infection Patient is a 47-year-old female seen at bedside this morning. She is postop day #3 from I&D of her left dorsal foot infection. She has pain at the surgical site in the area of the dorsum of the foot as expected. She continues on IV antibiotocs per infectious disease. She denies any new numbness or tingling. She is currently denying fever, chills, chest pain, calf pain, shortness of breath, new numbness or tingling, dizziness, headaches, slurred speech or other. Objective - Vital Signs Vital signs: Vital Signs Temp 97.0 F L 11/11/17 15:00 Pulse 71 11/11/17 15:00 Resp 16 11/11/17 15:00 BP 119/69 11/11/17 15:00 Pulse Ox 100 11/11/17 15:00 Intake & Output 11/10/17 11/11/17 11/11/17 18:59 06:59 18:59 Other: Voiding Method Bedside Commode Bedside Commode Bedside Commode # Voids 2 2 3 # Bowel Movements 1 1 1 - Exam Surgical dressing was removed. There is evidence of serous drainage on the bandage and minimal bleeding. There is no purulent drainage from the surgical wound. No active bleeding. There is continued diffuse erythema across the dorsum of the foot and from sloughing of the skin and blister. It has not progressed further from previous demarcation outlined. There is no erythema on the plantar surface. There is no new blistering at the dorsum and proximal portion of the left foot. The foot is warm to touch. There is less than 2 second capillary refill in all digits. She is able to wiggle the toes. There is diffuse resolving edema across the dorsum of the foot. The calf is soft and nontender. Motor and sensation is intact. Vascular status is intact. - Constitutional General appearance: Present: no acute distress - Psychiatric Psychiatric: Present: A&O x's 3, appropriate affect, intact judgment & insight - Labs CBC & Chem 7: 11/11/17 09:23 11/11/17 09:23 Labs: Abnormal Lab Results - Last 24 Hours (Table) 11/11/17 11/11/17 Range/Units 09:23 09:23 RBC 3.66 L (3.80-5.40) m/uL Hgb 11.2 L (11.4-16.0) gm/dL Hct 33.3 L (34.0-46.0) % Metamyelocytes # (Man) 0.09 H (0) k/uL Myelocytes # (Manual) 0.26 H (0) k/uL Potassium 3.2 L (3.5-5.1) mmol/L Glucose 181 H (74-99) mg/dL Calcium 8.2 L (8.4-10.2) mg/dL Microbiology - Last 24 Hours (Table) 11/08/17 10:30 Gram Stain - Final Foot - Left Wound Culture - Final Strep pyogenes (grp a) 11/08/17 10:30 Gram Stain - Preliminary Foot - Left Wound Culture - Preliminary Strep pyogenes (grp a) 11/04/17 19:35 Blood Culture - Final Blood No Growth after 144 hours Assessment and Plan (1) Cellulitis Narrative/Plan: The foot continues to appears stable today postop from I&D. Recommend continued elevation above the heart, pain management, and wound care. She is afebrile and WBC is normal. Cultures are showing Grp A strep pyogenes. Continue IV antibiotics per infectious disease. We'll continue to monitor closely. Current Visit: Yes Status: Acute Priority: Medium Code(s): L03.90 - CELLULITIS, UNSPECIFIED SNOMED Code(s): 622029006 Time with Patient: Less than 30
--- NOTE | 2017-11-11 21:04 | PN ---
PROGRESS NOTE DATE OF SERVICE: 11/11/2017. REASON FOR FOLLOWUP: Left foot abscess and cellulitis. INTERVAL HISTORY: The patient is afebrile. She is breathing comfortably. Pain to the left foot is currently controlled. Denies having any chest pain, shortness of breath. No cough. No abdominal pain. No diarrhea. EXAMINATION: VITAL SIGNS: Blood pressure 119/69, pulse of 71. Temperature of 97. She is 100% on room air. GENERAL DESCRIPTION: A middle-aged female lying in bed in no distress. RESPIRATORY SYSTEM: Unlabored breathing. Clear to auscultation anteriorly. HEART: S1, S2. Regular rate and rhythm. ABDOMEN: Soft. EXTREMITIES: Left foot swelling and redness has improved. No purulence. LABS: Hemoglobin 11.2, white count 8.6, BUN of 8, creatinine 0.76. DIAGNOSTIC IMPRESSION AND PLAN: Patient with left foot abscess and cellulitis with Streptococcus pyogenes. Currently on cefazolin and Clinda with a plan to possibly start the patient on cefazolin 2 g q.8 for another 10 days to 2 weeks until [facility] or switch her over to Rocephin 2 g daily if the patient is not going home. This was discussed and script was provided to the case management. Continue supportive care. MMODL / IJN: [id number] /
[2017-11-12] MEDS: CLINDAMYCIN 900 MG in DEXTROSE 5% IN WATER 50 ML IVPB SCH ×6 (00:17→16:09)
[2017-11-12] MEDS: traMADol 50 MG TAB PO PRN ×2 (03:33→14:03)
[2017-11-12] MEDS: LEVOTHYROXINE 100 MCG TAB PO SCH (06:42)
[2017-11-12 06:46] VITALS: BP 119/66; PULSE 96; TEMP 98
[2017-11-12 08:30] VITALS: BMI 31.2
[2017-11-12] MEDS: DOCUSATE 100 MG CAP PO SCH (08:45)
[2017-11-12] MEDS: LACTATED RINGERS 1,000 ML IV SCH (08:45)
[2017-11-12] MEDS: PANTOPRAZOLE 40 MG TABLET PO SCH (08:46)
[2017-11-12] MEDS: FERROUS SULFATE 325 MG TAB PO SCH (08:46)
[2017-11-12] MEDS: BACLOFEN 10 MG TAB PO SCH ×2 (08:46→15:36)
[2017-11-12] MEDS: OXYBUTYNIN CHLORIDE 5 MG TAB PO SCH ×2 (08:46→15:36)
[2017-11-12] MEDS: GABAPENTIN 300 MG CAP PO SCH ×2 (08:46→15:36)
[2017-11-12] MEDS: PYRIDOXINE 50 MG TAB PO SCH (08:46)
[2017-11-12] MEDS: LORATADINE 10 MG TAB PO SCH (08:46)
[2017-11-12] MEDS: MAG HYDROX/AL HYDROX/SIMETH 30 ML, LIDOCAINE VISCOUS 30 ML, diphenhydrAMINE ELIXIR 75 M... PO SCH ×8 (08:48→15:36)
[2017-11-12] MEDS: HEPARIN SODIUM,PORCINE 5,000 UNIT/ML 1 ML VIAL SQ SCH (08:49)
[2017-11-12] MEDS: FOLIC ACID 1 MG TAB PO SCH (08:49)
[2017-11-12 08:54] LABS: HCT 34.6 % (34.0-46.0); HGB 11.6 gm/dL (11.4-16.0); MCH 30.7 pg (25.0-35.0); MCHC 33.5 g/dL (31.0-37.0); MCV 91.6 fL (80.0-100.0); Mean Platelet Volume 6.7; Platelet Count 490 k/uL (150-450); RBC 3.78 m/uL (3.80-5.40); RDW 13.3 % (11.5-15.5); WBC 8.2 k/uL (3.8-10.6)
[2017-11-12 09:09] LABS: ALT 26 U/L (9-52); AST 16 U/L (14-36); Albumin 3.1 g/dL (3.5-5.0); Alkaline Phosphatase 79 U/L (38-126); Anion Gap 13 mmol/L; Blood Urea Nitrogen 8 mg/dL (7-17); Calcium 8.9 mg/dL (8.4-10.2); Carbon Dioxide 24 mmol/L (22-30); Chloride 106 mmol/L (98-107); Glucose 139 mg/dL (74-99); Magnesium 2.1 mg/dL (1.6-2.3); Potassium 3.8 mmol/L (3.5-5.1); Sodium 143 mmol/L (137-145); Total Bilirubin 0.2 mg/dL (0.2-1.3)
--- NOTE | 2017-11-12 09:58 | P.PN ---
Subjective Progress Note Date: 11/12/17 Principal diagnosis: Left foot cellulitis/ infection, abcess, s/p I an D Patient is a 47-year-old female seen at bedside this morning. She is postop day #4 from I&D of her left dorsal foot infection. She has pain at the surgical site in the area of the dorsum of the foot as expected but is improving She continues on IV antibiotocs per infectious disease. She denies any new numbness or tingling. She is currently denying fever, chills, chest pain, calf pain, shortness of breath, new numbness or tingling, dizziness, headaches, slurred speech or other. Objective - Vital Signs Vital signs: Vital Signs Temp 98.0 F 11/12/17 06:05 Pulse 96 11/12/17 06:05 Resp 16 11/12/17 06:05 BP 119/66 11/12/17 06:05 Pulse Ox 95 11/12/17 06:05 Intake & Output 11/11/17 11/12/17 11/12/17 18:59 06:59 18:59 Weight 85.275 kg Other: Voiding Method Bedside Commode # Voids 3 2 # Bowel Movements 1 1 - Exam Dressing per infectious disease in place. No evidence of drainage or bleeding today. There is less than 2 second capillary refill in all digits. She is able to wiggle the toes better today. There is improved overall appearance and movement of the toes, foot and ankle. The calf is soft and nontender. Motor and sensation is intact. Vascular status is intact. - Constitutional General appearance: Present: no acute distress - Psychiatric Psychiatric: Present: A&O x's 3, appropriate affect, intact judgment & insight - Labs CBC & Chem 7: 11/12/17 08:34 11/12/17 08:34 Labs: Abnormal Lab Results - Last 24 Hours (Table) 11/11/17 11/11/17 11/12/17 Range/Units 09:23 09:23 08:34 RBC 3.66 L (3.80-5.40) m/uL Hgb 11.2 L (11.4-16.0) gm/dL Hct 33.3 L (34.0-46.0) % Plt Count (150-450) k/uL Metamyelocytes # (Man) 0.09 H (0) k/uL Myelocytes # (Manual) 0.26 H (0) k/uL Potassium 3.2 L (3.5-5.1) mmol/L Glucose 181 H 139 H (74-99) mg/dL Calcium 8.2 L (8.4-10.2) mg/dL Total Protein 6.0 L (6.3-8.2) g/dL Albumin 3.1 L (3.5-5.0) g/dL 11/12/17 Range/Units 08:34 RBC 3.78 L (3.80-5.40) m/uL Hgb (11.4-16.0) gm/dL Hct (34.0-46.0) % Plt Count 490 H (150-450) k/uL Metamyelocytes # (Man) (0) k/uL Myelocytes # (Manual) (0) k/uL Potassium (3.5-5.1) mmol/L Glucose (74-99) mg/dL Calcium (8.4-10.2) mg/dL Total Protein (6.3-8.2) g/dL Albumin (3.5-5.0) g/dL Microbiology - Last 24 Hours (Table) 11/08/17 10:30 Gram Stain - Final Foot - Left Wound Culture - Final Strep pyogenes (grp a) 11/08/17 10:30 Gram Stain - Preliminary Foot - Left Wound Culture - Preliminary Strep pyogenes (grp a) Assessment and Plan (1) Cellulitis Narrative/Plan: The foot continues to show improvement postop from I&D, dressing changes and IV antibiotics. Recommend continued elevation above the heart, pain management, PT and wound care. She continues to be afebrile and WBC is normal. PICC line has been placed. She may be weight bear as tolerated. Wound care per ID. She may transfer to rehab from an orthopedic standpoint when ok with other providers. Current Visit: Yes Status: Acute Priority: Medium Code(s): L03.90 - CELLULITIS, UNSPECIFIED SNOMED Code(s): 270017127 Time with Patient: Less than 30
[2017-11-12 10:32] LABS: Band Neutrophils % 4 %; Basophils # (M) 0.08 k/uL (0-0.2); Eosinophils # (M) 0.16 k/uL (0-0.7); Lymphocytes # (M) 2.21 k/uL (1.0-4.8); Metamyelocytes # (M) 0.49 k/uL (0); Metamyelocytes % 6 %; Monocytes # (M) 0.33 k/uL (0-1.0); Myelocytes # (M) 0.25 k/uL (0); Myelocytes % 3 %; Neutrophils % (M) 54 %; Nucleated Red Blood Cells 0 /100 WBC (0-0); Total Cells Counted 200
[2017-11-12 10:36] LABS: Polychromasia Present; Toxic Granulation Present
[2017-11-12] MEDS ORDERED: HYDROmorphone 2 MG TAB PO PRN ×2 (11:38→11:39)
[2017-11-12] MEDS: MAGNESIUM OXIDE 400 MG TAB PO SCH (12:33)
--- NOTE | 2017-11-12 14:13 | PN ---
PROGRESS NOTE DATE OF SERVICE: 11/12/2017 REASON FOR FOLLOWUP: Left foot abscess and cellulitis. INTERVAL HISTORY: The patient is afebrile. She is currently breathing comfortably. Denies having any chest pain, shortness of breath, or cough. Still having pain in the foot, especially when she walks on it. PHYSICAL EXAMINATION: Blood pressure 119/66, pulse of 96, temperature 98, she is 95% on room air. General description is a middle aged female lying in bed, in no distress. RESPIRATORY SYSTEM: Unlabored breathing, clear to auscultation anteriorly. HEART: S1, S2. Regular rate and rhythm. ABDOMEN: Soft, no tenderness. LABS: White count of 8.2, BUN of 8, creatinine 0.80. DIAGNOSTIC IMPRESSION AND PLAN: Patient with left foot abscess and cellulitis. Culture positive for Streptococcus pyogenes group B, currently on cefazolin and Clinda. Recommend transition to Rocephin 2 g daily for about 2 weeks. Local wound care with Aquacel Silver dressing. Will follow up in the office in 1 week. Continue supportive care. MMODL / IJN: [id number] /
--- NOTE | 2017-11-12 16:05 | P.DS ---
Providers Date of admission: 11/04/17 22:29 Expected date of discharge: 11/12/17 Attending physician: Kathryn Brown Consults: 11/05/17 09:28 Consult Physician Routine Consulting Provider: Leonel Marquez Consult Reason/Comments: left foot cellulitis Do you want consulting provider notified?: Yes 11/06/17 13:21 Consult Physician Routine Consulting Provider: Guero Garcia Consult Reason/Comments: left foot abscess possible I &D Do you want consulting provider notified?: Yes 11/10/17 14:25 Consult Physician Routine Consulting Provider: Cedric Tolbert Consult Reason/Comments: possible inpatient rehab Do you want consulting provider notified?: Yes Primary care physician: Laurence Haque [facility] Course: Discharge diagnosis 1. Left foot cellulitis with abscess after a syringe needle stick: Status post I&D. Infectious disease and orthopedics are following. Patient received tetanus injection. Hepatitis screen and HIV screen negative. Computed tomography scan of the foot showing subcutaneous edema with fluid collection questionable edema versus abscess. Also evidence of cellulitis. Wound culture growing strep pygenes Group A. Patient had PICC line paced. Infectious diseases recommending's Rocephin 2 g daily for 14 days 2. Sepsis secondary to the left foot cellulitis and abscess present on admission: Continue antibiotics. Lactic acid has normalized. Patient has ALLERGY to acetaminophen and is unable to take NSAIDs to help reduce fever. 3. Acute kidney injury: Likely related to dehydration patient did have a poor oral intake prior to admission. Patient will be continued on IV fluids. Discontinue all NSAIDs. Watch closely while patient is on vancomycin. Kidney function has improved 4. Hypokalemia : Resolved 5. 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 Hypothyroidism continue Synthroid 7. Iron deficiency anemia: Iron level of 8. Patient will be placed on ferrous sulfate 325 mg twice a day 8. History of substance abuse Hospital course This is a 47-year-old female, patient of Dr. Haque. 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 She also has history of MRSA in her blood stream and hypothyroidism. Patient presents to the emergency room with increased swelling redness and bruising of her left foot that streaking up into the left tibia area. She reports about 4 days ago she was walking her dog and had walked through some brush and a needle with a syringe poked into her foot. Patient has no sensation in that foot she did not realize initially that she had been poked. Later she was able to pull the syringe and needle out of her foot. She reports over the last 2 days she's had increased swelling redness in that foot. No drainage. She has been febrile. And also having episodes of confusion. Patient is brought into the emergency room with a temp of 100.8 and has gone up 101.3 she was also tachycardic. White count 16.6. Lactic acid 2.3 she also had episode of hypotension blood pressure 86/53. She was given IV fluid boluses. And started on vancomycin and Zosyn in the emergency room. Blood cultures pending. Infectious disease is been consulted. Patient has ALLERGY to acetaminophen. Unable to give any more Motrin. Patient had elevated creatinine level of 1.4. Creatinine has come down to 1.2. She'll be given IV fluids and packed in ice. Patient denies any chest pain. Doesn't having some shortness of breath earlier when she was having the fevers. This has resolved. Denies any nausea or vomiting. Denies any bowel movement changes or urinary symptoms 11/06/2017 patient still having significant swelling and redness of the left foot. Blisters have started to form since yesterday afternoon. She is remained afebrile. Creatinine has normalized at 0.90. Hepatitis panel and HIV screen negative. Patient followed by infectious disease. Patient denies any chest pain or shortness of breath. Denies any nausea or vomiting. 11/09/2017 patient is status post I&D on 11/08/2017. Left foot is bandaged. She is having a yellowish drainage from the foot. Followed closely by infectious disease and orthopedics. She did have a low-grade temp of 100.1 last night. Patient does report a throbbing pain in the left foot controlled with the oxycodone. Denies any chest pain or shortness of breath. Denies any nausea or vomiting. Reports regular bowel movements. Denies any burning with urination. 11/10/2017 orthopedics have change the dressing on her left foot. Patient was still having a serous type drainage. Infectious disease has adjusted antibiotics. They have added clindamycin. And discontinued vancomycin and Zosyn. Patient reports having bowel movements. Denies difficulty urinating. She reports having some difficulty working with physical therapy Patient has been cleared by infectious disease and orthopedics for discharge. She'll continue IV Rocephin 2 g IV daily for 14 more days via PICC line for the abscess and cellulitis of the left foot. Culture had grown strep Pyogenes group A. Patient be discharged to [facility] on the [place]. Also during this admission iron was added due to iron deficiency anemia. She also had some acute kidney injury improved with IV fluids. Creatinine has normalized. Patient has been cleared by consulting physicians for discharge. She is to continue with wound care per infectious disease recommendations with Aquasol silver dressing to the left foot every 48 hours. Patient medically stable for discharge. Please refer to chart for any further details I performed an examination of the patient and discussed their management with the physician Textile Machinery Instructor. I have reviewed the Physician Textile Machinery Instructor's notes and agree with the documented findings and plan of care Patient Condition at Discharge: Stable Plan - Discharge Summary Discharge Rx Participant: Yes New Discharge Prescriptions: New cefTRIAXone [Rocephin] 2,000 mg IVP Q24HR #14 bag Docusate [Colace] 100 mg PO BID cap Ferrous Sulfate [Iron (65 MG Elemental)] 325 mg PO BID tab oxyCODONE HCL [OxyIR] 5 mg PO Q6H PRN #12 tab PRN Reason: Pain traMADol HCl [Ultram] 50 mg PO TID PRN #9 tab PRN Reason: Pain Continue Pyridoxine [Vitamin B-6] 50 mg PO DAILY Omeprazole [PriLOSEC] 40 mg PO DAILY Loratadine [Claritin] 10 mg PO DAILY Levothyroxine Sodium [Synthroid] 100 mcg PO DAILY Gabapentin [Neurontin] 600 mg PO TID Folic Acid 0.4 mg PO DAILY Oxybutynin Chloride [Ditropan] 5 mg PO TID Baclofen [Lioresal] 20 mg PO TID Discontinued Naproxen [Naprosyn] 500 mg PO BID Discharge Medication List Pyridoxine [Vitamin B-6] 50 mg PO DAILY 01/08/17 [History] Loratadine [Claritin] 10 mg PO DAILY 02/01/17 [History] Omeprazole [PriLOSEC] 40 mg PO DAILY 02/01/17 [History] Baclofen [Lioresal] 20 mg PO TID 11/04/17 [History] Folic Acid 0.4 mg PO DAILY 11/04/17 [History] Gabapentin [Neurontin] 600 mg PO TID 11/04/17 [History] Levothyroxine Sodium [Synthroid] 100 mcg PO DAILY 11/04/17 [History] Oxybutynin Chloride [Ditropan] 5 mg PO TID 11/04/17 [History] Docusate [Colace] 100 mg PO BID cap 11/12/17 [Rx] Ferrous Sulfate [Iron (65 MG Elemental)] 325 mg PO BID tab 11/12/17 [Rx] cefTRIAXone [Rocephin] 2,000 mg IVP Q24HR #14 bag 11/12/17 [Rx] oxyCODONE HCL [OxyIR] 5 mg PO Q6H PRN #12 tab 11/12/17 [Rx] traMADol HCl [Ultram] 50 mg PO TID PRN #9 tab 11/12/17 [Rx] Follow up Appointment(s)/Referral(s): [facility], [NON-STAFF] - Laurence Haque MD [Primary Care Provider] - 1 Week Leonel Marquez MD [STAFF PHYSICIAN] - 1 Week Patient Instructions/Handouts: MRSA (Methicillin-Resistant Staphylococcus Aureus) (DC), Cellulitis (DC), Peripherally Inserted Central Catheters and Midline Catheters (DC) Activity/Diet/Wound Care/Special Instructions: Take medications as prescribed. Activity as tolerated, up with cane, fall precautions. Elevate left foot at rest. Keep site clean, wash daily with warm water Aquacel silver dressing to the left foot wound to change q48hr and follow up in wound care next week , call [phone] to make appointment with Dr Marquez. Regular diet. ok to discharge to [facility] Dr. Mendoza to follow at [facility] Discharge Disposition: TRANSFER TO SNF/ECF
== END 2017-11-12 18:07 | DRG 854 ==
LOC: EC 17:51 → EEVIPCON 17:51 → 4MS4W 22:29
PROVIDERS: ADMIT Internal Medicine; ATTEND Internal Medicine
PROC: 3E0234Z Introduction of Serum, Toxoid and Vaccine into Muscle, Percutaneous Approach (ICD-10-PCS; principal; 2017-11-04)
PROC: 0J9R0ZZ Drainage of Left Foot Subcutaneous Tissue and Fascia, Open Approach (ICD-10-PCS; 2017-11-08)
PROC: 0HBNXZZ Excision of Left Foot Skin, External Approach (ICD-10-PCS; 2017-11-08)
PROC: 02HV33Z Insertion of Infusion Device into Superior Vena Cava, Percutaneous Approach (ICD-10-PCS; 2017-11-11 14:00)
DX: A41.9 Sepsis, unspecified organism (principal); L02.612 Cutaneous abscess of left foot; L03.116 Cellulitis of left lower limb; N17.9 Acute kidney failure, unspecified; I69.354 Hemiplegia and hemiparesis following cerebral infarction affecting left non-dominant side; D50.9 Iron deficiency anemia, unspecified; E03.9 Hypothyroidism, unspecified; E87.6 Hypokalemia; W46.0XXA Contact with hypodermic needle, initial encounter; Y93.K1 Activity, walking an animal; Y99.0 Civilian activity done for income or pay; Z77.21 Contact with and (suspected) exposure to potentially hazardous body fluids; Z86.14 Personal history of Methicillin resistant Staphylococcus aureus infection; Z87.891 Personal history of nicotine dependence; Z88.6 Allergy status to analgesic agent; Z90.49 Acquired absence of other specified parts of digestive tract; Z98.1 Arthrodesis status; Z79.899 Other long term (current) drug therapy; Z79.890 Hormone replacement therapy; E66.3 Overweight; Z68.31 Body mass index [BMI] 31.0-31.9, adult; F19.11 Other psychoactive substance abuse, in remission; B95.0 Streptococcus, group A, as the cause of diseases classified elsewhere
CPT/HCPCS: 36415; 36569; 76937; 77001; 80048; 80053; 80074; 80202; 82728; 83540; 83550; 83605; 83735; 84132; 85025; 86140; 87040; 87070; 87075; 87077; 87186; 87205; 87390; 90714; 96365; 96366; 99284

== ENCOUNTER 2017-12-17 08:02 | Inpatient (IN) | payer MEDICARE, MEDICAID ==
[2017-12-17] MEDS ORDERED: SODIUM CHLORIDE 0.9% 1,000 ML IV STA (08:49)
--- NOTE | 2017-12-17 08:50 | ED ---
General Adult HPI - General Chief complaint: Psychiatric Symptoms Stated complaint: Overdose Time Seen by Provider: 12/17/17 08:04 Source: EMS, RN notes reviewed, old records reviewed Mode of arrival: EMS Limitations: altered mental status - History of Present Illness Initial comments: This is a 47-year-old female to the ER today. Patient presents today for evaluation regarding possible and alleged overdose. Multiple medication overdose. Patient is a well-known patient is hospital for mental health drug abuse psychiatric symptoms. Patient's combative and not cooperative on exam and questioning - Related Data Home Medications Medication Instructions Recorded Confirmed Loratadine [Claritin] 10 mg PO DAILY 02/01/17 12/17/17 Omeprazole [PriLOSEC] 40 mg PO DAILY 02/01/17 12/17/17 Baclofen [Lioresal] 20 mg PO TID 11/04/17 12/17/17 Folic Acid 0.4 mg PO DAILY 11/04/17 12/17/17 Gabapentin [Neurontin] 600 mg PO Q4H 11/04/17 12/17/17 Levothyroxine Sodium [Synthroid] 100 mcg PO DAILY 11/04/17 12/17/17 Oxybutynin Chloride [Ditropan] 5 mg PO TID 11/04/17 12/17/17 Naproxen 500 mg PO Q8H PRN 12/17/17 12/17/17 Pyridoxine [Vitamin B-6] 50 mg PO DAILY 12/17/17 12/17/17 Allergies Allergy/AdvReac Type Severity Reaction Status Date / Time acetaminophen Allergy Unknown Verified 12/17/17 11:36 aspirin Allergy Rash/Hives Verified 12/17/17 11:36 Review of Systems ROS Statement: Those systems with pertinent positive or pertinent negative responses have been documented in the HPI. ROS Other: All systems not noted in ROS Statement are negative. 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 Date of last positivie culture/infection: 01/08/17 MDRO Source:: BLOOD Past Surgical History: Appendectomy, No Surgical Hx Reported, Tubal Ligation, Unable to Obtain Additional Past Surgical History / Comment(s): neck fusion Past Anesthesia/Blood Transfusion Reactions: No Reported Reaction, Unable to Obtain Past Psychological History: No Psychological Hx Reported, Unable to Obtain Smoking Status: Former smoker Past Alcohol Use History: None Reported Past Drug Use History: None Reported - Past Family History Father History Unknown: Yes Family Medical History: Unable to Obtain Mother History Unknown: Yes Family Medical History: Unable to Obtain General Exam Limitations: altered mental status General appearance: alert, in no apparent distress Head exam: Present: atraumatic, normocephalic, normal inspection Eye exam: Present: normal appearance, PERRL, EOMI. Absent: scleral icterus, conjunctival injection, periorbital swelling ENT exam: Present: normal exam, mucous membranes moist Neck exam: Present: normal inspection. Absent: tenderness, meningismus, lymphadenopathy Respiratory exam: Present: normal lung sounds bilaterally. Absent: respiratory distress, wheezes, rales, rhonchi, stridor Cardiovascular Exam: Present: regular rate, normal rhythm, normal heart sounds. Absent: systolic murmur, diastolic murmur, rubs, gallop, clicks GI/Abdominal exam: Present: soft, normal bowel sounds. Absent: distended, tenderness, guarding, rebound, rigid Extremities exam: Present: normal inspection, full ROM, normal capillary refill. Absent: tenderness, pedal edema, joint swelling, calf tenderness Back exam: Present: normal inspection Neurological exam: Present: alert, oriented X3, CN II-XII intact Psychiatric exam: Present: normal affect, normal mood Skin exam: Present: warm, dry, intact, normal color. Absent: rash Course Vital Signs 12/17/17 12/17/17 12/17/17 08:15 09:35 12:17 Temperature 97.9 F Pulse Rate 60 58 L 58 L Respiratory 16 16 16 Rate Blood Pressure 171/123 153/109 175/95 O2 Sat by Pulse 95 98 96 Oximetry 12/17/17 13:00 Temperature 97.4 F L Pulse Rate 87 Respiratory 18 Rate Blood Pressure 129/59 O2 Sat by Pulse 97 Oximetry EKG Findings - EKG Comments: EKG Findings:: EKG shows sinus bradycardia rate of 56, WI 120, QRS 90, QTc 426 Medical Decision Making - Medical Decision Making 88 female who was seen and evaluated by psychiatry here in the ER for evaluation regarding suicidal attempt, patient will be admitted for psychiatric evaluation and treatment - Lab Data Result diagrams: 12/17/17 08:25 12/17/17 08:25 Lab Results 12/17/17 12/17/17 12/17/17 Range/Units 08:25 08:25 08:25 WBC 10.2 (3.8-10.6) k/uL RBC 4.71 (3.80-5.40) m/uL Hgb 15.2 D (11.4-16.0) gm/dL Hct 43.9 (34.0-46.0) % MCV 93.2 (80.0-100.0) fL MCH 32.3 (25.0-35.0) pg MCHC 34.7 (31.0-37.0) g/dL RDW 14.5 (11.5-15.5) % Plt Count 300 (150-450) k/uL Neutrophils % 74 % Lymphocytes % 18 % Monocytes % 5 % Eosinophils % 2 % Basophils % 0 % Neutrophils # 7.5 (1.3-7.7) k/uL Lymphocytes # 1.8 (1.0-4.8) k/uL Monocytes # 0.5 (0-1.0) k/uL Eosinophils # 0.2 (0-0.7) k/uL Basophils # 0.0 (0-0.2) k/uL PT 9.6 (9.0-12.0) sec INR 1.0 (<1.2) Sodium 148 H (137-145) mmol/L Potassium 5.0 (3.5-5.1) mmol/L Chloride 107 (98-107) mmol/L Carbon Dioxide 26 (22-30) mmol/L Anion Gap 15 mmol/L BUN 14 (7-17) mg/dL Creatinine 0.66 (0.52-1.04) mg/dL Est GFR (CKD-EPI)AfAm >90 (>60 ml/min/1.73 sqM) Est GFR (CKD-EPI)NonAf >90 (>60 ml/min/1.73 sqM) Glucose 102 H (74-99) mg/dL Calcium 10.0 (8.4-10.2) mg/dL Total Bilirubin 0.4 (0.2-1.3) mg/dL AST 27 (14-36) U/L ALT 26 (9-52) U/L Alkaline Phosphatase 89 (38-126) U/L Total Protein 8.1 (6.3-8.2) g/dL Albumin 4.8 (3.5-5.0) g/dL Lipase 27 (23-300) U/L Urine Color Urine Appearance (Clear) Urine pH (5.0-8.0) Ur Specific [place] (1.001-1.035) Urine Protein (Negative) Urine Glucose (UA) (Negative) Urine Ketones (Negative) Urine Blood (Negative) Urine Nitrite (Negative) Urine Bilirubin (Negative) Urine Urobilinogen (<2.0) mg/dL Ur Leukocyte Esterase (Negative) Urine RBC (0-5) /hpf Urine WBC (0-5) /hpf Ur Squamous Epith Cells (0-4) /hpf Urine Bacteria (None) /hpf Urine Mucus (None) /hpf Salicylates <1.0 mg/dL Urine Opiates Screen Ur Oxycodone Screen Urine Methadone Screen Ur Propoxyphene Screen Acetaminophen <10.0 ug/mL Ur Barbiturates Screen U Tricyclic Antidepress Ur Phencyclidine Scrn Ur Amphetamines Screen U Methamphetamines Scrn U Benzodiazepines Scrn Urine Cocaine Screen U Marijuana (THC) Screen Serum Alcohol <10 mg/dL 12/17/17 Range/Units 13:01 WBC (3.8-10.6) k/uL RBC (3.80-5.40) m/uL Hgb (11.4-16.0) gm/dL Hct (34.0-46.0) % MCV (80.0-100.0) fL MCH (25.0-35.0) pg MCHC (31.0-37.0) g/dL RDW (11.5-15.5) % Plt Count (150-450) k/uL Neutrophils % % Lymphocytes % % Monocytes % % Eosinophils % % Basophils % % Neutrophils # (1.3-7.7) k/uL Lymphocytes # (1.0-4.8) k/uL Monocytes # (0-1.0) k/uL Eosinophils # (0-0.7) k/uL Basophils # (0-0.2) k/uL PT (9.0-12.0) sec INR (<1.2) Sodium (137-145) mmol/L Potassium (3.5-5.1) mmol/L Chloride (98-107) mmol/L Carbon Dioxide (22-30) mmol/L Anion Gap mmol/L BUN (7-17) mg/dL Creatinine (0.52-1.04) mg/dL Est GFR (CKD-EPI)AfAm (>60 ml/min/1.73 sqM) Est GFR (CKD-EPI)NonAf (>60 ml/min/1.73 sqM) Glucose (74-99) mg/dL Calcium (8.4-10.2) mg/dL Total Bilirubin (0.2-1.3) mg/dL AST (14-36) U/L ALT (9-52) U/L Alkaline Phosphatase (38-126) U/L Total Protein (6.3-8.2) g/dL Albumin (3.5-5.0) g/dL Lipase (23-300) U/L Urine Color Yellow Urine Appearance Turbid H (Clear) Urine pH 6.0 (5.0-8.0) Ur Specific [place] 1.011 (1.001-1.035) Urine Protein 1+ H (Negative) Urine Glucose (UA) Trace H (Negative) Urine Ketones Negative (Negative) Urine Blood Moderate H (Negative) Urine Nitrite Negative (Negative) Urine Bilirubin Negative (Negative) Urine Urobilinogen <2.0 (<2.0) mg/dL Ur Leukocyte Esterase Moderate H (Negative) Urine RBC 29 H (0-5) /hpf Urine WBC 13 H (0-5) /hpf Ur Squamous Epith Cells 121 H (0-4) /hpf Urine Bacteria Rare H (None) /hpf Urine Mucus Occasional H (None) /hpf Salicylates mg/dL Urine Opiates Screen Cancelled Ur Oxycodone Screen Cancelled Urine Methadone Screen Cancelled Ur Propoxyphene Screen Cancelled Acetaminophen ug/mL Ur Barbiturates Screen Cancelled U Tricyclic Antidepress Cancelled Ur Phencyclidine Scrn Cancelled Ur Amphetamines Screen Cancelled U Methamphetamines Scrn Cancelled U Benzodiazepines Scrn Cancelled Urine Cocaine Screen Cancelled U Marijuana (THC) Screen Cancelled Serum Alcohol mg/dL Disposition Clinical Impression: Depression, Suicidal ideation, Attempted suicide Disposition: TRANSFER TO PSYCH HOSP/UNIT Condition: Fair Is patient prescribed a controlled substance at d/c from ED?: No Referrals: Zoila Sinclair MD [Primary Care Provider] - 1-2 days
[2017-12-17 09:19] LABS: Basophils % (A) 0 %; Eosinophils # (A) 0.2 k/uL (0-0.7); Eosinophils % (A) 2 %; HCT 43.9 % (34.0-46.0); Lymphocytes # (A) 1.8 k/uL (1.0-4.8); Lymphocytes % (A) 18 %; MCH 32.3 pg (25.0-35.0); MCHC 34.7 g/dL (31.0-37.0); MCV 93.2 fL (80.0-100.0); Mean Platelet Volume 7.2; Monocytes # (A) 0.5 k/uL (0-1.0); Monocytes % (A) 5 %; Neutrophils # (A) 7.5 k/uL (1.3-7.7); Neutrophils % (A) 74 %; Platelet Count 300 k/uL (150-450); RBC 4.71 m/uL (3.80-5.40); RDW 14.5 % (11.5-15.5); WBC 10.2 k/uL (3.8-10.6)
[2017-12-17 09:21] LABS: Prothrombin Time 9.6 sec (9.0-12.0)
[2017-12-17 09:22] LABS: HGB 15.2 gm/dL (11.4-16.0)
[2017-12-17 09:23] LABS: ALT 26 U/L (9-52); AST 27 U/L (14-36); Acetaminophen <10.0 ug/mL; Albumin 4.8 g/dL (3.5-5.0); Alcohol <10 mg/dL; Alkaline Phosphatase 89 U/L (38-126); Anion Gap 15 mmol/L; Blood Urea Nitrogen 14 mg/dL (7-17); Carbon Dioxide 26 mmol/L (22-30); Chloride 107 mmol/L (98-107); Glucose 102 mg/dL (74-99); Lipase 27 U/L (23-300); Salicylate <1.0 mg/dL; Sodium 148 mmol/L (137-145); Total Bilirubin 0.4 mg/dL (0.2-1.3); Total Protein 8.1 g/dL (6.3-8.2)
[2017-12-17 13:25] LABS: Appearance,Urine Turbid (Clear); Bacteria,Urine Rare /hpf; Bilirubin,Urine Negative (Negative); Blood,Urine Moderate (Negative); Color,Urine Yellow; Glucose,Urine (UA) Trace (Negative); Ketones,Urine Negative (Negative); Leukocyte Esterase,Urine Moderate (Negative); Mucus,Urine Occasional /hpf; Nitrite,Urine Negative (Negative); Protein,Urine 1+ (Negative); RBC,Urine 29 /hpf (0-5); Specific Gravity,Urine 1.011 (1.001-1.035); Squamous Epithelial Cell,Urine 121 /hpf (0-4); Urobilinogen,Urine <2.0 mg/dL (<2.0); WBC,Urine 13 /hpf (0-5)
[2017-12-17] MEDS ORDERED: MAG HYDROX/AL HYDROX/SIMETH 30 ML CUP PO PRN (19:45)
[2017-12-17] MEDS ORDERED: MAGNESIUM HYDROXIDE 2,400 MG/10 ML CUP PO PRN (19:45)
[2017-12-17] MEDS ORDERED: ZIPRASIDONE 20 MG VIAL IM PRN (19:45)
[2017-12-18 08:37] LABS: Albumin 3.6 g/dL (3.5-5.0); Bilirubin, Delta 0.2 mg/dL (0.0-0.2); Bilirubin,Unconjugated 0.5 mg/dL (0.0-1.1); Total Bilirubin 0.7 mg/dL (0.2-1.3); Total Protein 6.3 g/dL (6.3-8.2)
[2017-12-18 08:53] LABS: Appearance,Urine Clear (Clear); Bilirubin,Urine Negative (Negative); Blood,Urine Negative (Negative); Color,Urine Yellow; Glucose,Urine (UA) Negative (Negative); Ketones,Urine Negative (Negative); Leukocyte Esterase,Urine Negative (Negative); Nitrite,Urine Negative (Negative); Protein,Urine Negative (Negative); Specific Gravity,Urine 1.012 (1.001-1.035); Urobilinogen,Urine <2.0 mg/dL (<2.0)
[2017-12-18] MEDS: LEVOTHYROXINE 100 MCG TAB PO SCH ×2 (09:57→10:11)
[2017-12-18] MEDS: NICOTINE 14MG/24HR PATCH TRANSDERM SCH (09:57)
--- NOTE | 2017-12-18 13:08 | P.CONS ---
History of Present Illness - Reason for Consult Consult date: 12/18/17 Medical management while in psychiatry unit - Chief Complaint Mental status changes - History of Present Illness Yani Dobbs is a [age] -year-old female who was brought into [facility] emergency room due to mental status changes, patient was combative and not cooperative with exam in emergency room, Labs were done in the emergency room and patient had evidence of mild hyponatremia at 148, glucose was 102, otherwise no abnormality seen, first urine analysis was done and was grossly abnormal urine was turbid there was some blood in the urine that was protein glucose leukocyte esterase bacteria and RBCs and WBCs, however repeat urine analysis was negative, possibly her first urine analysis was contaminated due to agitation. Patient was then admitted to the psychiatry unit , she has known history of psychiatric illness, there is a questionable history of medication overdose, urine toxicology screen was done unfortunately we do not have for results at this time, salicylate level was less than 1, acetaminophen level was less than 10, and serum alcohol level was less than 10, otherwise no results are available at this time. Patient was seen and examined in the psychiatry unit today, she is alert slightly somnolent, she is responsive to questions in no apparent distress, At this time she denies taking medication overdose. Patient was recently admitted to [facility] for left foot cellulitis with abscess after a syringe needle was stuck in her foot, she underwent incision and drainage of the area and received IV antibiotics. Review of system reveals history of spinal cord stroke with residual left sided sensation loss and history of hypothyroidism and iron deficiency anemia. Review of Systems Neurological: Reports change in mentation 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 Year Discovered:: 01/08/17 MDRO Source:: BLOOD Past Surgical History: Appendectomy, No Surgical Hx Reported, Tubal Ligation, Unable to Obtain Additional Past Surgical History / Comment(s): neck fusion Past Anesthesia/Blood Transfusion Reactions: No Reported Reaction, Unable to Obtain Past Psychological History: No Psychological Hx Reported, Unable to Obtain Smoking Status: Former smoker Past Alcohol Use History: None Reported Past Drug Use History: None Reported Additional Drug Use History / Comment(s): tox screen positive - Past Family History Father History Unknown: Yes Family Medical History: Unable to Obtain Mother History Unknown: Yes Family Medical History: Unable to Obtain Medications and Allergies Home Medications Medication Instructions Recorded Confirmed Type Loratadine [Claritin] 10 mg PO DAILY 02/01/17 12/17/17 History Omeprazole [PriLOSEC] 40 mg PO DAILY 02/01/17 12/17/17 History Baclofen [Lioresal] 20 mg PO TID 11/04/17 12/17/17 History Folic Acid 0.4 mg PO DAILY 11/04/17 12/17/17 History Gabapentin [Neurontin] 600 mg PO Q4H 11/04/17 12/17/17 History Levothyroxine Sodium [Synthroid] 100 mcg PO DAILY 11/04/17 12/17/17 History Oxybutynin Chloride [Ditropan] 5 mg PO TID 11/04/17 12/17/17 History Naproxen 500 mg PO Q8H PRN 12/17/17 12/17/17 History Pyridoxine [Vitamin B-6] 50 mg PO DAILY 12/17/17 12/17/17 History Allergies Allergy/AdvReac Type Severity Reaction Status Date / Time acetaminophen Allergy Unknown Verified 12/17/17 19:45 aspirin Allergy Rash/Hives Verified 12/17/17 19:45 Milk Containing Products Allergy Nausea & Verified 12/17/17 19:45 Vomiting Physical Exam Vitals: Vital Signs Temp Pulse Pulse Pulse Resp BP BP 12/18/17 09:58 77 16 12/18/17 06:37 90 16 116/62 12/18/17 04:43 83 16 12/18/17 02:18 93 14 12/17/17 23:11 98.5 F 96 16 111/68 12/17/17 20:05 98.1 F 83 16 127/66 12/17/17 18:54 18 110/60 12/17/17 14:52 18 12/17/17 13:00 97.4 F L 87 18 129/59 BP Pulse Ox 12/18/17 09:58 133/82 96 12/18/17 06:37 12/18/17 04:43 97 12/18/17 02:18 96 12/17/17 23:11 97 12/17/17 20:05 12/17/17 18:54 12/17/17 14:52 12/17/17 13:00 97 HEENT head normocephalic and atraumatic Neck is supple no JVD no goiter Chest exam reveals a few scattered crackles bilaterally no wheezing Cardiac exam reveals regular heart sounds no gallops no murmurs Abdomen is soft nontender no organomegaly with normal bowel sounds Extremity exam reveals no edema no cyanosis or clubbing There is a scab on the left foot site of recent incision and drainage for foot cellulitis with abscess Neurological examination patient is somnolent at this time there is no agitation she is answering questions There is no gross focal neurological deficit Results CBC & Chem 7: 12/17/17 08:25 12/17/17 08:25 Labs: Abnormal Lab Results - Last 24 Hours (Table) 12/17/17 Range/Units 13:01 Urine Appearance Turbid H (Clear) Urine Protein 1+ H (Negative) Urine Glucose (UA) Trace H (Negative) Urine Blood Moderate H (Negative) Ur Leukocyte Esterase Moderate H (Negative) Urine RBC 29 H (0-5) /hpf Urine WBC 13 H (0-5) /hpf Ur Squamous Epith Cells 121 H (0-4) /hpf Urine Bacteria Rare H (None) /hpf Urine Mucus Occasional H (None) /hpf Assessment and Plan Plan: #1 mental status changes with episodes of agitation on presentation #2 possible medication overdose, unfortunately toxicology screen is still not available Will monitor closely. #3 mild hypernatremia doubt any clinical significance will recheck labs in tomorrow #4 recent history of left foot cellulitis with abscess requiring incision and drainage and IV antibiotics #5 history of spinal cord stroke #6 previous history of psychiatric illness #7 no evidence of urinary tract infection on repeat urine analysis At this time, medications reviewed no need for antibiotics Will recheck labs in a.m. Continue with current management as per primary psychiatry team Will follow as needed during her psychiatry hospitalization
--- NOTE | 2017-12-18 17:08 | P.HP ---
Psychiatric H&P - . H&P Date: 12/18/17 History & Physical: Identification Data: The patient is a 47-year-old woman admitted to the psychiatric unit involuntarily. Her mother completed a Petition for Hospitalization that read "she doesn't take her medications responsibly. She has overdosed 3 times in [id number] the last year. I found her today unresponsive for another overdose (12/17/2017) We had a fight over who was doing drugs in my house and she needed to find a place to live." History of Present Illness: I reviewed the medical record and attempted to interview the patient. She was laying in bed with the one-to-one sitter inattendance. She did not respond to her name but made eye contact. She refused to answer questions or get out of bed. According to information from the EPS nurse, her mother found her unresponsive with pills around her and called EMS. I called her mother to obtain collateral information. She stated that the patient has had drug problems since she was 13 years old. She has had multiple overdoses and multiple hospitalizations for overdose of drugs and alcohol. Her daughter was homeless following her last medical hospitalization. She let her live in a home that they own in [facility]. When she had not heard from her daughter in "several days" she went to the home and found her daughter on the floor unresponsive. Mother stated that there were "pills and booze on the floor." According to medical record, she was admitted to the [facility] on 11/12/2017 for treatment of left lower extremity cellulitis. She has a series of admissions from the ICU to medicine unit beginning on 01/16/2017 for the treatment of an overdose, aspiration pneumonia and status epilepticus. She presented 01/08/2017 unresponsive secondary to an and overdose of multiple drugs. Her management required intubation, mechanical ventilation management in the ICU. Nursing staff placed her on one-to-one this morning because she was restless, unsteady and irritable. 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 Mother complained that she has unsuccessfully several times tried to have her daughter received mental health treatment. Substance use history: Mother describes a history of abuse of alcohol and drugs. Her mother was unable to described what drugs that her daughter had been using. When she was high school she had a problem with abusing Xanax and Valium. The urine drug screens from the patient's hospitalizations were fairly consistently positive for opiates. She did not provide adequate urine sample to perform a urine drug screen on this admission. Family psychiatric/substance use history: Unknown Social History: According to her mother, she became at 13, delivery and 14 and dropped out of school. She obtained a GED. She is lived a chaotic life. She has had 4 children. The mother adopted and raised youngest and oldest. The middle 2 children were adopted by a [id number]. The patient lived in [facility]. Mental Status Exam: She presented as an uncooperative and disheveled 47-year- old female. She is laying in bed and made eye contact but would not answer questions or get out of bed. When the one-to-one attendant attempted to help her get out of bed she sat up and then flopped back on her side. Allergy/AdvReac Type Severity Reaction Status Date / Time acetaminophen Allergy Unknown Verified 12/17/17 19:45 aspirin Allergy Rash/Hives Verified 12/17/17 19:45 Milk Containing Products Allergy Nausea & Verified 12/17/17 19:45 Vomiting Vital Signs Temp 98.5 F 12/17/17 23:11 Pulse 90 12/18/17 06:37 Resp 16 12/18/17 06:37 BP 116/62 12/18/17 06:37 Pulse Ox 97 12/18/17 04:43 Intake & Output 12/17/17 12/18/17 12/18/17 18:59 06:59 18:59 Weight 95.254 kg Laboratory Last Values WBC 10.2 k/uL (3.8-10.6) 12/17/17 08:25 RBC 4.71 m/uL (3.80-5.40) 12/17/17 08:25 Hgb 15.2 gm/dL (11.4-16.0) D 12/17/17 08:25 Hct 43.9 % (34.0-46.0) 12/17/17 08:25 MCV 93.2 fL (80.0-100.0) 12/17/17 08:25 MCH 32.3 pg (25.0-35.0) 12/17/17 08:25 MCHC 34.7 g/dL (31.0-37.0) 12/17/17 08:25 RDW 14.5 % (11.5-15.5) 12/17/17 08:25 Plt Count 300 k/uL (150-450) 12/17/17 08:25 Neutrophils % 74 % 12/17/17 08:25 Lymphocytes % 18 % 12/17/17 08:25 Monocytes % 5 % 12/17/17 08:25 Eosinophils % 2 % 12/17/17 08:25 Basophils % 0 % 12/17/17 08:25 Neutrophils # 7.5 k/uL (1.3-7.7) 12/17/17 08:25 Lymphocytes # 1.8 k/uL (1.0-4.8) 12/17/17 08:25 Monocytes # 0.5 k/uL (0-1.0) 12/17/17 08:25 Eosinophils # 0.2 k/uL (0-0.7) 12/17/17 08:25 Basophils # 0.0 k/uL (0-0.2) 12/17/17 08:25 PT 9.6 sec (9.0-12.0) 12/17/17 08:25 INR 1.0 (<1.2) 12/17/17 08:25 Sodium 148 mmol/L (137-145) H 12/17/17 08:25 Potassium 5.0 mmol/L (3.5-5.1) 12/17/17 08:25 Chloride 107 mmol/L (98-107) 12/17/17 08:25 Carbon Dioxide 26 mmol/L (22-30) 12/17/17 08:25 Anion Gap 15 mmol/L 12/17/17 08:25 BUN 14 mg/dL (7-17) 12/17/17 08:25 Creatinine 0.66 mg/dL (0.52-1.04) 12/17/17 08:25 Est GFR (CKD-EPI)AfAm >90 (>60 ml/min/1.73 sqM) 12/17/17 08:25 Est GFR (CKD-EPI)NonAf >90 (>60 ml/min/1.73 sqM) 12/17/17 08:25 Glucose 102 mg/dL (74-99) H 12/17/17 08:25 Calcium 10.0 mg/dL (8.4-10.2) 12/17/17 08:25 Total Bilirubin 0.7 mg/dL (0.2-1.3) 12/18/17 07:52 Conjugated Bilirubin 0.0 mg/dL (0.0-0.3) 12/18/17 07:52 Unconjugated Bilirubin 0.5 mg/dL (0.0-1.1) 12/18/17 07:52 Delta Bilirubin 0.2 mg/dL (0.0-0.2) 12/18/17 07:52 AST 31 U/L (14-36) 12/18/17 07:52 ALT 29 U/L (9-52) 12/18/17 07:52 Alkaline Phosphatase 72 U/L (38-126) 12/18/17 07:52 Total Protein 6.3 g/dL (6.3-8.2) 12/18/17 07:52 Albumin 3.6 g/dL (3.5-5.0) 12/18/17 07:52 Lipase 27 U/L (23-300) 12/17/17 08:25 TSH 2.330 mIU/L (0.465-4.680) 12/18/17 07:52 Urine Color Yellow 12/18/17 08:30 Urine Appearance Clear (Clear) 12/18/17 08:30 Urine pH 7.0 (5.0-8.0) 12/18/17 08:30 Ur Specific [place] 1.012 (1.001-1.035) 12/18/17 08:30 Urine Protein Negative (Negative) 12/18/17 08:30 Urine Glucose (UA) Negative (Negative) 12/18/17 08:30 Urine Ketones Negative (Negative) 12/18/17 08:30 Urine Blood Negative (Negative) 12/18/17 08:30 Urine Nitrite Negative (Negative) 12/18/17 08:30 Urine Bilirubin Negative (Negative) 12/18/17 08:30 Urine Urobilinogen <2.0 mg/dL (<2.0) 12/18/17 08:30 Ur Leukocyte Esterase Negative (Negative) 12/18/17 08:30 Urine RBC 29 /hpf (0-5) H 12/17/17 13:01 Urine WBC 13 /hpf (0-5) H 12/17/17 13:01 Ur Squamous Epith Cells 121 /hpf (0-4) H 12/17/17 13:01 Urine Bacteria Rare /hpf (None) H 12/17/17 13:01 Urine Mucus Occasional /hpf (None) H 12/17/17 13:01 Urine HCG, Qual Not Detected (Not Detectd) 12/18/17 08:30 Salicylates <1.0 mg/dL 12/17/17 08:25 Urine Opiates Screen Cancelled 12/17/17 13:01 Ur Oxycodone Screen Cancelled 12/17/17 13:01 Urine Methadone Screen Cancelled 12/17/17 13:01 Ur Propoxyphene Screen Cancelled 12/17/17 13:01 Acetaminophen <10.0 ug/mL 12/17/17 08:25 Ur Barbiturates Screen Cancelled 12/17/17 13:01 U Tricyclic Antidepress Cancelled 12/17/17 13:01 Ur Phencyclidine Scrn Cancelled 12/17/17 13:01 Ur Amphetamines Screen Cancelled 12/17/17 13:01 U Methamphetamines Scrn Cancelled 12/17/17 13:01 U Benzodiazepines Scrn Cancelled 12/17/17 13:01 Urine Cocaine Screen Cancelled 12/17/17 13:01 U Marijuana (THC) Screen Cancelled 12/17/17 13:01 Serum Alcohol <10 mg/dL 12/17/17 08:25 12/18/17 09:42 12/18/17 10:11 12/18/17 12:31 12/18/17 17:05 Assessment and Plan Assessment: She is a 47-year-old female admitted involuntarily the psychiatric unit following a apparent overdose of drugs and alcohol. She is uncooperative with the psychiatric exam. She is sedated lethargic and confused. She should be treated inpatient basis with a combination of psychopharmacology and multimodal therapy. Proceed with involuntary hospitalization. (1) Attempted suicide Current Visit: Yes Status: Acute Priority: High Code(s): T14.91XA - SUICIDE ATTEMPT, INITIAL ENCOUNTER SNOMED Code(s): 00046256 (2) Unspecified personality disorder Current Visit: Yes Status: Chronic Priority: High Code(s): F60.9 - PERSONALITY DISORDER, UNSPECIFIED SNOMED Code(s): 09422281 (3) Substance use disorder Current Visit: Yes Status: Chronic Priority: High Code(s): F19.90 - OTHER PSYCHOACTIVE SUBSTANCE USE, UNSPECIFIED, UNCOMPLICATED SNOMED Code(s): 61264739 (4) Unspecified mood [affective] disorder Current Visit: Yes Status: Acute Code(s): F39 - UNSPECIFIED MOOD [AFFECTIVE ] DISORDER SNOMED Code(s): 02424380 Plan: Admitted to the psychiatric unit. Safety precautions with 11. Consult medicine for initial physical exam and medical history. Clinical team to complete multidisciplinary assessment. Continue Synthroid 100 g daily and prescribed Habitrol 14 mg patch for tobacco use disorder. Completed the second clinical certificate and proceeded with involuntary hospitalization. Encourage participation in therapeutic groups and activities. Evaluate clinical status response to treatment on daily basis.
[2017-12-18 17:30] LABS: Urine Alcohol Negative (Negative); Urine Barbiturate Negative (Negative); Urine Cocaine Negative (Negative); Urine Methadone Negative (Negative); Urine Opiates Negative (Negative); Urine Phencyclidine Negative (Negative)
[2017-12-19] MEDS: LEVOTHYROXINE 100 MCG TAB PO SCH (06:55)
[2017-12-19] MEDS: NICOTINE 14MG/24HR PATCH TRANSDERM SCH (09:12)
[2017-12-19 11:35] VITALS: RESP 16
[2017-12-19] MEDS: ONDANSETRON ODT 4 MG TAB PO PRN (12:35)
--- NOTE | 2017-12-19 22:30 | P.PN ---
Progress Note - Text Progress Note Date: 12/19/17 Patient was seen today. She was in her room lying on her bed. She stated she is tired of falling and being bruised. She uses wheel chair due to her unsteady gait. She says she had spinal stroke. She denies symptoms of depression, cirilo or psychosis. She reports good sleep and appetite. She said she doesnt eat much here because she doesnt like the food here. 47 year old woman. She appeared her stated age in fair grooming and hygiene. She is superficially co-operative. She says she is in the hospital due to repeated falls. She reports her mood as good and affect appropriate. Her speech is low in volume, tone and rate. She denies current auditory or visual hallucinations. She is guarded and tends to minimize her problems. She denies use of illicit drugs. She was petitioned by her mother due to being found unresponsive. Patient also has history of overdosing on drugs. She denies current suicidal or homicidal ideations She is alert and oriented 4. She has poor insight and judgement. She is currently being monitored with no psychiatric medications. Her involuntary paper work has been filed. Monitor for symptoms Encourage participation in groups.
[2017-12-20] MEDS: LEVOTHYROXINE 100 MCG TAB PO SCH (06:21)
[2017-12-20] MEDS: NICOTINE 14MG/24HR PATCH TRANSDERM SCH (09:00)
[2017-12-20] MEDS: ONDANSETRON ODT 4 MG TAB PO PRN (09:01)
[2017-12-20 10:36] LABS: Basophils % (A) 1 %; Eosinophils # (A) 0.1 k/uL (0-0.7); Eosinophils % (A) 2 %; HCT 41.7 % (34.0-46.0); HGB 14.5 gm/dL (11.4-16.0); Lymphocytes # (A) 1.9 k/uL (1.0-4.8); Lymphocytes % (A) 24 %; MCH 31.8 pg (25.0-35.0); MCHC 34.7 g/dL (31.0-37.0); MCV 91.6 fL (80.0-100.0); Mean Platelet Volume 6.7; Monocytes # (A) 0.4 k/uL (0-1.0); Monocytes % (A) 5 %; Neutrophils # (A) 5.3 k/uL (1.3-7.7); Neutrophils % (A) 67 %; Platelet Count 305 k/uL (150-450); RBC 4.56 m/uL (3.80-5.40); RDW 14.1 % (11.5-15.5)
[2017-12-20 10:43] LABS: ALT 35 U/L (9-52); AST 24 U/L (14-36); Albumin 4.3 g/dL (3.5-5.0); Alkaline Phosphatase 70 U/L (38-126); Anion Gap 14 mmol/L; Blood Urea Nitrogen 20 mg/dL (7-17); Calcium 9.7 mg/dL (8.4-10.2); Carbon Dioxide 24 mmol/L (22-30); Chloride 102 mmol/L (98-107); Glucose 103 mg/dL (74-99); Potassium 4.6 mmol/L (3.5-5.1); Sodium 140 mmol/L (137-145); Total Bilirubin 0.6 mg/dL (0.2-1.3); Total Protein 7.3 g/dL (6.3-8.2)
--- NOTE | 2017-12-20 15:37 | XR ---
EXAMINATION TYPE: XR foot complete LT DATE OF EXAM: 12/20/2017 CLINICAL HISTORY: Pain, swelling and infection. TECHNIQUE: Frontal, lateral, and oblique images of the left foot are obtained. COMPARISON: None FINDINGS: There is no acute fracture/dislocation evident in the left foot. Early osteophytic changes with sclerosis and minimal joint space narrowing of the metatarsophalangeal deflation of the great t oe. The overlying soft tissue appears unremarkable. There is a plantar calcaneal spur visible on the lateral projection. IMPRESSION: There is no acute fracture or dislocation in the left foot. Plantar calcaneal spur visible on the lateral projection. Mild arthritic changes more noticeable at t he level of the metatarsophalangeal reticulation of the great toe.
--- NOTE | 2017-12-20 16:24 | XR ---
EXAMINATION TYPE: XR ankle complete LT DATE OF EXAM: 12/20/2017 CLINICAL HISTORY: Pain and swelling and infection TECHNIQUE: Frontal, lateral and oblique images of the left ankle are obtained. COMPARISON: None. FINDINGS: There is no acute fracture/dislocation evident in the left ankle. The ankle mortise appea rs within normal limits. There is a plantar calcaneal spur visible on the lateral projection. Faintl y defined calcification superimposing the medial malleolus consistent with ligament calcification or prior injury. No acute fracture. The ankle mortise is preserved. There is the presence of an os los num. The overlying soft tissue appears unremarkable. IMPRESSION: There is no acute fracture or dislocation in the left ankle. No focal bony destruction. Plantar calcaneal spur. Presence of an os trigonum. Calcific densities at the medial malleolus probab ly related to calcification of the ligaments or old injury.
--- NOTE | 2017-12-20 17:57 | P.PN ---
Progress Note - Text Progress Note Date: 12/20/17 Patient was seen today. She was walking with a walker in the hallway. She has a sitter due to fall risk. Patient reports being diagnosed with spinal stroke four years ago. She reports taking barbiturates for spinal stroke. When asked who is prescribing barbiturates to her she stated Dr. Ventura prescribes Baclofen and Dr. Vega prescribes gabapentin, oxubutin and thyroid medications. She states, she thought baclofen and gabapentin are barbiturates . When asked if she uses any illicit drugs she denies. She states she does not know the reason why she falls and says she only takes her medications as prescribed. She denies taking narcotics or pain medications. When asked why her mother wants her to get mental health treatment, she says she doesnt know. She claims to have seen a counselor in the past due to having a room mate who was a pain in the ass and very depressing. She states she currently lives alone in her apartment with her cat and dog. She says she wants to be her own person and feels she is strong enough to take care of herself. She denies feeling sad, hopeless or helpless. She denies current suicidal or homicidal ideations. She denies symptoms of psychosis or cirilo. She reports poor sleep and attributes it the hospital bed. Other wang she reports good sleep and appetite. She is currently concerned about her cat and dog and wants to know when she can be discharged from the hospital. 47 year old woman. She appeared her stated age in fair grooming and hygiene. She is pleasant and co-operative. She says she is in the hospital due to repeated falls. She reports her mood as good and affect appropriate. Her speech is low in volume, tone and rate. She denies current auditory or visual hallucinations. She denies current suicidal or homicidal ideations She is alert and oriented 4. She is currently being monitored with no psychiatric medications. Her involuntary paper work has been filed. Monitor for symptoms Encourage participation in groups.
[2017-12-21] MEDS: LEVOTHYROXINE 100 MCG TAB PO SCH (05:56)
[2017-12-21] MEDS: NICOTINE 14MG/24HR PATCH TRANSDERM SCH (08:07)
[2017-12-21] MEDS ORDERED: IBUPROFEN 400 MG TAB PO PRN (08:39)
--- NOTE | 2017-12-21 16:04 | P.PN ---
Subjective Progress Note Date: 12/21/17 Principal diagnosis: Attempt suicide, unspecified personality disorder, substance use disorder, unspecified mood disorder I reviewed the medical record, interviewed the patient and discussed her treatment and treatment plan during team meeting. She is pleasant and cooperative during our encounter. She denied that she had overdosed on drugs, attempted suicide or had been abusing alcohol or prescription medications. She alleged that she had fallen and had "knocked unconscious" when her mother arrived. She denied that there were empty alcohol bottles and empty pill bottles scattered about the house. Her UDS obtained on 12/18/2017 was positive for benzodiazepines and cannabinoids. Her blood alcohol level on 12/17/2017 was less than 10. She complained about her mother stated that her mother talks over her and is not honest. She denied feeling depressed, sad, hopeless, helpless or worthless. She denied feelings of self reproach or guilt. She denied thoughts of or suicide. She denied impairment in sleep or appetite. She assisted anxiety that interferes with her ability to function. She denied psychotic symptoms such as auditory or visual or olfactory hallucinations and ideas of reference etc. Objective - Vital Signs Vital signs: Vital Signs Temp 97.6 F 12/20/17 14:54 Pulse 86 12/21/17 09:57 Resp 16 12/21/17 09:57 BP 137/78 12/21/17 09:57 Pulse Ox 96 12/21/17 09:57 Intake & Output 12/20/17 12/21/17 12/21/17 18:59 06:59 18:59 Weight 82.2 kg - Psychiatric Psychiatric Comment(s): She presented as a casually groomed 47-year-old female who is wearing a hospital gown. Her gait was unsteady and she walked with a walker. She made eye contact and attended to the interview. She had a blunted facial expression. She was alert and oriented to person, place and time. She showed slight psychomotor retardation. Her speech was spontaneous with slight decrease in rate and volume. She had no articulation difficulties. Her affect was blunted, anxious but stable and appropriate. She denied suicidal ideation or wishes. She denied homicidal ideation. She denied such depressive cognitions as hopelessness, helplessness and worthlessness. She did not express ideas reference, paranoid ideation or delusional thoughts. Her thinking was concrete but her associations were coherent, logical and goal directed. She denied hallucinations and did not appear to be responding to internal stimuli. - Labs CBC & Chem 7: 12/20/17 10:02 12/20/17 10:02 Labs: Abnormal Lab Results - Last 24 Hours (Table) 12/18/17 Range/Units 08:30 U Benzodiazepines Scrn Positive H (Negative) ng/mL U Cannabinoids Screen Positive H (Negative) ng/mL Assessment and Plan Assessment: She is much more alert, cooperative and pleasant on admission. Her description of the circumstances leading to this admission are not consistent with that provided by her mother. She is denying alcohol and drug use. Her history is supported partially by the results of the serum alcohol and urine drug screen results. (1) Attempted suicide Current Visit: Yes Status: Acute Priority: Low Code(s): T14.91XA - SUICIDE ATTEMPT, INITIAL ENCOUNTER SNOMED Code(s): 44156969 (2) Unspecified personality disorder Current Visit: Yes Status: Chronic Priority: High Code(s): F60.9 - PERSONALITY DISORDER, UNSPECIFIED SNOMED Code(s): 85628107 (3) Substance use disorder Current Visit: Yes Status: Chronic Priority: High Code(s): F19.90 - OTHER PSYCHOACTIVE SUBSTANCE USE, UNSPECIFIED, UNCOMPLICATED SNOMED Code(s): 41258313 (4) Unspecified mood [affective] disorder Current Visit: Yes Status: Acute Code(s): F39 - UNSPECIFIED MOOD [AFFECTIVE ] DISORDER SNOMED Code(s): 48427798 Plan: Continue inpatient hospitalization. Continue safety precautions including the use of a walker while on the unit. There is no indication for a psychotropic medication at this time. Encouraged participation in therapeutic groups and activities. Evaluate clinical status response to treatment daily basis.
[2017-12-22 05:56] VITALS: BP 81/51; PULSE 78; TEMP 98
[2017-12-22] MEDS: LEVOTHYROXINE 100 MCG TAB PO SCH (06:29)
[2017-12-22] MEDS: NICOTINE 14MG/24HR PATCH TRANSDERM SCH (09:37)
--- NOTE | 2017-12-22 14:12 | P.DS ---
Providers Date of admission: 12/17/17 18:59 Attending physician: Philip Nicole MD Consults: 12/18/17 09:37 Consult Physician Routine Consulting Provider: Kathryn Brown Consult Reason/Comments: H and P Do you want consulting provider notified?: Yes Primary care physician: Zoila Yahir - Discharge Diagnosis(es) (1) Unspecified personality disorder Current Visit: Yes Status: Chronic Priority: High (2) Substance use disorder Current Visit: Yes Status: Chronic Priority: Low (3) Unspecified mood [affective] disorder Current Visit: Yes Status: Chronic Priority: Low Hospital Course: The patient is a 47-year-old woman admitted to the psychiatric unit involuntarily. Her mother completed a Petition for Hospitalization that read "she doesn't take her medications responsibly. She has overdosed 3 times in [id number] the last year. I found her today unresponsive for another overdose () We had a fight over who was doing drugs in my house and she needed to find a place to live." She was initially uncooperative and refused to get out of bed for interview. She did not respond to her name but made eye contact. She refused to answer questions or get out of bed. According to information from the EPS nurse, her mother found her unresponsive with pills around her and called EMS. I called her mother to obtain collateral information. She stated that the patient has had drug problems since she was 13 years old. She has had multiple overdoses and multiple hospitalizations for overdose of drugs and alcohol. Her daughter was homeless following her last medical hospitalization. She let her live in a home that they own in [facility]. When she had not heard from her daughter in "several days" she went to the home and found her daughter on the floor unresponsive. Mother stated that there were "pills and booze on the floor." According to medical record, she was admitted to the [facility] on 11/12/2017 for treatment of left lower extremity cellulitis. She has a series of admissions from the ICU to medicine unit beginning on 01/16/2017 for the treatment of an overdose, aspiration pneumonia and status epilepticus. She presented 01/08/2017 unresponsive secondary to an and overdose of multiple drugs. Her management required intubation, mechanical ventilation management in the ICU. We admitted her to the psychiatric unit under care of this sheet writer. We provided a comprehensive biopsychosocial assessment. The specialty sales consultant senior compensation analyst completed initial physical exam and medical history and diagnoses mild hypernatremia, hypothyroidism, recent history of left foot cellulitis and history of spinal cord stroke. We continued her Synthroid 100 g daily. 2 days after admission she is much more pleasant and cooperative. She denied that she had attempted suicide, overdosed on drugs and alcohol or had been abusing drugs and alcohol. She complained about her mother fabricates information and is intrusive and controlling. The fact that her urine drug screen was positive only for benzodiazepines and her admission blood alcohol level was less than 10 did not support the history that she was abusing alcohol and drugs. She posed no management problem and required no medications for episodes of behavioral dyscontrol. She denied feeling depressed, hopeless or helpless. She denied suicidal ideation. She denied feeling tense, nervous her apprehensive. She denied psychotic symptoms. There is no indication for the prescription of a psychotropic medication. At the time of discharge she presented as a casually groomed 47-year-old female who walks slowly with the aid of a walker. She made eye contact and attended to interview. She had a blunted but bright facial expression. She showed slight psychomotor retardation but no abnormal movements. Her speech was spontaneous and slightly dysarthric. Her affect was blunted but stable and appropriate. She denied suicidal ideation or wishes. She denied homicidal ideation. She denied such depressive cognitions as hopelessness, helplessness or worthlessness. She did not express ideas reference, paranoid ideation or delusional thoughts. Her thinking was concrete but his associations were coherent, logical and goal directed. She denied hallucinations and did not appear to responding to internal stimuli. We completed the Mini-Mental State Examination. Her total score was 27/30. A score greater than 26 is considered within normal range. She had difficulty with attention, calculation and recall only. Patient Condition at Discharge: Stable Plan - Discharge Summary New Discharge Prescriptions: New Nicotine 14Mg/24Hr Patch [Habitrol] 1 patch TRANSDERM DAILY #7 patch Continue Omeprazole [PriLOSEC] 40 mg PO DAILY Loratadine [Claritin] 10 mg PO DAILY Levothyroxine Sodium [Synthroid] 100 mcg PO DAILY Gabapentin [Neurontin] 600 mg PO Q4H Folic Acid 0.4 mg PO DAILY Oxybutynin Chloride [Ditropan] 5 mg PO TID Baclofen [Lioresal] 20 mg PO TID Naproxen 500 mg PO Q8H PRN PRN Reason: Pain Pyridoxine [Vitamin B-6] 50 mg PO DAILY Discharge Medication List Loratadine [Claritin] 10 mg PO DAILY 02/01/17 [History] Omeprazole [PriLOSEC] 40 mg PO DAILY 02/01/17 [History] Baclofen [Lioresal] 20 mg PO TID 11/04/17 [History] Folic Acid 0.4 mg PO DAILY 11/04/17 [History] Gabapentin [Neurontin] 600 mg PO Q4H 11/04/17 [History] Levothyroxine Sodium [Synthroid] 100 mcg PO DAILY 11/04/17 [History] Oxybutynin Chloride [Ditropan] 5 mg PO TID 11/04/17 [History] Naproxen 500 mg PO Q8H PRN 12/17/17 [History] Pyridoxine [Vitamin B-6] 50 mg PO DAILY 12/17/17 [History] Nicotine 14Mg/24Hr Patch [Habitrol] 1 patch TRANSDERM DAILY #7 patch 12/22/17 [ Rx] Follow up Appointment(s)/Referral(s): Zoila Sinclair MD [Primary Care Provider] - 1-2 days Patient Instructions/Handouts: Depression (DC) Activity/Diet/Wound Care/Special Instructions: Activity and diet as tolerated. Avoid the use of street drugs and alcohol. Remove all firearms from the home. Take all medications as prescribed. Follow up with your Primary Care Physician in one to two days. When you are in need of refills on your medications please contact your medical provider and/or your outpatient psychiatrist to have this done. Please go to the scheduled outpatient appointment for aftercare. If symptoms return or become worse call the crisis line and/ or go the nearest emergency room for an evaluation. alexandra
== END 2017-12-22 14:27 | disposition home or self-care (01) | DRG 883 ==
LOC: EC 08:02 → 3MHU 18:59
PROVIDERS: ADMIT Psychiatry & Neurology Psychiatry; ATTEND Psychiatry & Neurology Psychiatry
DX: F60.9 Personality disorder, unspecified (principal); I69.354 Hemiplegia and hemiparesis following cerebral infarction affecting left non-dominant side; E87.0 Hyperosmolality and hypernatremia; E03.9 Hypothyroidism, unspecified; F32.9 Major depressive disorder, single episode, unspecified; F41.9 Anxiety disorder, unspecified; G40.901 Epilepsy, unspecified, not intractable, with status epilepticus; R29.6 Repeated falls; Z72.0 Tobacco use; Z91.81 History of falling; Z98.1 Arthrodesis status; Z88.6 Allergy status to analgesic agent; Z91.011 Allergy to milk products; Z79.899 Other long term (current) drug therapy; F19.10 Other psychoactive substance abuse, uncomplicated; D50.9 Iron deficiency anemia, unspecified; Z86.14 Personal history of Methicillin resistant Staphylococcus aureus infection; R26.81 Unsteadiness on feet
CPT/HCPCS: 36415; 80053; 80076; 80306; 80320; 81001; 81003; 81025; 83520; 83690; 84443; 85025; 85610; 93005; 99285

== ENCOUNTER → 2018-02-03 | Outpatient (CLI) | payer MEDICARE, OTHER ==
--- NOTE | 2018-02-03 18:31 | MR ---
EXAMINATION TYPE: MR lumbar spine wo con DATE OF EXAM: 02/03/2018 COMPARISON: NONE HISTORY: Left leg weakness TECHNIQUE: T1 and T2 axial and sagittal images of the lumbar spine are submitted. FINDINGS: There is no abnormal signal seen within the visualized spinal cord or paraspinal soft tissu es. Conus medullaris terminates at T11-T12 At L1-2 there is no disc herniation or canal stenosis. No foraminal encroachment. Mild hypertrophy of the facets. At L2-3 there is mild facet arthropathy. No disc herniation or canal stenosis. No foraminal encroachm ent. At L3-4 there is moderate facet arthropathy. No disc herniation or canal stenosis. Mild bilateral for aminal encroachment At L4-5 there is advanced facet arthropathy. No disc herniation or canal stenosis. Mild bilateral for aminal encroachment At L5-S1 there is facet arthropathy. No focal herniation or canal stenosis. Neural foramina are paten t. IMPRESSION: 1. Facet arthropathy at multiple levels with the most marked findings at L3-4 and L4-5 result in mild bilateral foraminal encroachment.
== END | disposition home or self-care (01) ==
LOC: RADMRIMAIN 17:45
PROVIDERS: ATTEND Family Medicine
DX: M48.8X6 Other specified spondylopathies, lumbar region (principal)
CPT/HCPCS: 72148

== ENCOUNTER 2018-02-27 01:23 | Inpatient (IN) | payer MEDICARE, OTHER ==
[2018-02-27 02:34] LABS: Appearance,Urine Cloudy (Clear); Bacteria,Urine Moderate /hpf; Bilirubin,Urine Negative (Negative); Blood,Urine Negative (Negative); Color,Urine Light Yellow; Glucose,Urine (UA) Negative (Negative); Ketones,Urine Negative (Negative); Leukocyte Esterase,Urine Small (Negative); Mucus,Urine Rare /hpf; Nitrite,Urine Negative (Negative); Protein,Urine Negative (Negative); Specific Gravity,Urine 1.008 (1.001-1.035); Squamous Epithelial Cell,Urine 1 /hpf (0-4); Urobilinogen,Urine <2.0 mg/dL (<2.0); WBC,Urine 10 /hpf (0-5)
[2018-02-27 03:06] LABS: Basophils # (A) 0.1 k/uL (0-0.2); Basophils % (A) 1 %; Eosinophils # (A) 0.3 k/uL (0-0.7); Eosinophils % (A) 2 %; HCT 39.8 % (34.0-46.0); HGB 13.2 gm/dL (11.4-16.0); Lymphocytes # (A) 1.9 k/uL (1.0-4.8); Lymphocytes % (A) 12 %; MCH 30.8 pg (25.0-35.0); MCV 93.4 fL (80.0-100.0); Mean Platelet Volume 6.7; Monocytes # (A) 0.8 k/uL (0-1.0); Monocytes % (A) 5 %; Neutrophils # (A) 12.8 k/uL (1.3-7.7); Neutrophils % (A) 80 %; Platelet Count 507 k/uL (150-450); RBC 4.27 m/uL (3.80-5.40)
[2018-02-27 03:40] LABS: ALT 24 U/L (9-52); AST 16 U/L (14-36); Alkaline Phosphatase 77 U/L (38-126); Amylase 61 U/L (30-110); Anion Gap 9 mmol/L; Blood Urea Nitrogen 10 mg/dL (7-17); Calcium 9.5 mg/dL (8.4-10.2); Carbon Dioxide 28 mmol/L (22-30); Chloride 101 mmol/L (98-107); Glucose 105 mg/dL (74-99); Lipase 23 U/L (23-300); Potassium 4.1 mmol/L (3.5-5.1); Sodium 138 mmol/L (137-145); Total Bilirubin 0.5 mg/dL (0.2-1.3); Total Protein 7.3 g/dL (6.3-8.2)
--- NOTE | 2018-02-27 04:08 | XR ---
EXAM: XR Abdomen, 2 Views CLINICAL HISTORY: ITS.REASON XR Reason: Pain TECHNIQUE: Frontal views of the abdomen/pelvis. COMPARISON: No relevant prior studies available. FINDINGS: Intraperitoneal space: No free air. Density projecting over the spleen could reflect calcified granulomas. Gastrointestinal tract: Borderline distended small bowel loop central abdomen with a presumed air-fluid level. Overall bowel gas pattern is nonspecific. Bones/joints: Unremarkable. IMPRESSION: Borderline distended small bowel loop central abdomen with a presumed air- fluid level. Overall bowel gas pattern is nonspecific.
[2018-02-27] MEDS ORDERED: MORPHINE SULFATE 4 MG/ML SYRINGE IVP STA (05:29)
[2018-02-27] MEDS ORDERED: ONDANSETRON 4 MG/2 ML VIAL IVP STA (05:36)
[2018-02-27] MEDS ORDERED: ONDANSETRON 4 MG/2 ML VIAL IVP PRN (05:59)
[2018-02-27] MEDS ORDERED: NALOXONE 0.4 MG/ML 1 ML VIAL IV PRN (05:59)
[2018-02-27] MEDS ORDERED: SODIUM CHLORIDE 0.9% 1,000 ML IV SCH (06:00)
--- NOTE | 2018-02-27 06:02 | ED ---
Abdominal Pain HPI - General Chief Complaint: Abdominal Pain Stated Complaint: abd pain Time Seen by Provider: 02/27/18 02:00 Source: patient Mode of arrival: ambulatory Limitations: no limitations - History of Present Illness Initial Comments: This patient is a 47-year-old woman who presents to be evaluated for abdominal pain. She states that it had come on approximately 11 hours ago. She indicates the epigastric area and states that it feels like a cramping or of bloating. It has gotten to be severe intensity. She has not discovered worsening or relieving factors. The patient states that prior to this coming on she had a feeling as if she was constipated. She had not had a bowel movement for day and a half which is unusual for her. She states that she did take something and had a bowel movement yesterday however the abdominal pain then came on. MD Complaint: abdominal pain Onset/Timin -: hour(s) Location: epigastric Radiation: L flank, R flank Migration to: no migration Severity: severe Quality: cramping, fullness Consistency: constant Improves With: nothing Worsens With: nothing Associated Symptoms: nausea, constipation - Related Data Home Medications Medication Instructions Recorded Confirmed Loratadine [Claritin] 10 mg PO DAILY 02/01/17 12/17/17 Omeprazole [PriLOSEC] 40 mg PO DAILY 02/01/17 12/17/17 Baclofen [Lioresal] 20 mg PO TID 11/04/17 12/17/17 Folic Acid 0.4 mg PO DAILY 11/04/17 12/17/17 Gabapentin [Neurontin] 600 mg PO Q4H 11/04/17 12/17/17 Levothyroxine Sodium [Synthroid] 100 mcg PO DAILY 11/04/17 12/17/17 Oxybutynin Chloride [Ditropan] 5 mg PO TID 11/04/17 12/17/17 Naproxen 500 mg PO Q8H PRN 12/17/17 12/17/17 Pyridoxine [Vitamin B-6] 50 mg PO DAILY 12/17/17 12/17/17 Previous Rx's Medication Instructions Recorded Nicotine 14Mg/24Hr Patch [Habitrol] 1 patch TRANSDERM DAILY #7 patch 12/22/17 Allergies Allergy/AdvReac Type Severity Reaction Status Date / Time acetaminophen Allergy Unknown Verified 09/08/18 01:35 aspirin Allergy Rash/Hives Verified 02/27/18 01:35 Milk Containing Products Allergy Nausea & Verified 02/27/18 01:35 Vomiting Review of Systems ROS Statement: Those systems with pertinent positive or pertinent negative responses have been documented in the HPI. ROS Other: All systems not noted in ROS Statement are negative. Constitutional: Denies: fever, chills Respiratory: Denies: cough, dyspnea Cardiovascular: Denies: chest pain, palpitations, edema Gastrointestinal: Reports: as per HPI, abdominal pain, nausea, constipation. Denies: vomiting, diarrhea, melena, hematochezia Genitourinary: Denies: dysuria, frequency, hematuria Musculoskeletal: Denies: back pain Skin: Denies: rash Neurological: Denies: headache, weakness, numbness 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 Date of last positivie culture/infection: 01/08/17 MDRO Source:: BLOOD Past Surgical History: Appendectomy, Tubal Ligation Additional Past Surgical History / Comment(s): neck fusion, carpal tunnel Past Anesthesia/Blood Transfusion Reactions: No Reported Reaction, Unable to Obtain Past Psychological History: No Psychological Hx Reported Smoking Status: Current every day smoker Past Alcohol Use History: Occasional Past Drug Use History: None Reported - Past Family History Father History Unknown: Yes Family Medical History: Unable to Obtain Mother History Unknown: Yes Family Medical History: Unable to Obtain General Exam Limitations: no limitations General appearance: alert, in no apparent distress Head exam: Present: atraumatic, normocephalic Eye exam: Present: normal appearance. Absent: scleral icterus, conjunctival injection ENT exam: Present: normal oropharynx Respiratory exam: Present: normal lung sounds bilaterally. Absent: respiratory distress, wheezes, rales, rhonchi, stridor Cardiovascular Exam: Present: regular rate, normal rhythm, normal heart sounds. Absent: systolic murmur, diastolic murmur, rubs, gallop GI/Abdominal exam: Present: soft, tenderness (Mild epigastric tenderness without rebound or guarding). Absent: distended, guarding, rebound, rigid, mass , pulsatile mass, hernia Extremities exam: Present: normal inspection, normal capillary refill. Absent: pedal edema, calf tenderness Back exam: Present: normal inspection. Absent: CVA tenderness (R), CVA tenderness (L) Neurological exam: Present: alert Skin exam: Present: warm, dry, intact, normal color. Absent: rash Course Vital Signs 02/27/18 02/27/18 02/27/18 01:32 05:24 06:30 Temperature 98.4 F Pulse Rate 99 85 95 Respiratory 18 20 18 Rate Blood Pressure 112/78 104/67 100/52 O2 Sat by Pulse 99 98 96 Oximetry Medical Decision Making - Lab Data Result diagrams: 02/27/18 03:00 02/27/18 03:00 Lab Results 02/27/18 02/27/18 02/27/18 Range/Units 02:04 02:04 03:00 WBC (3.8-10.6) k/uL RBC (3.80-5.40) m/uL Hgb (11.4-16.0) gm/dL Hct (34.0-46.0) % MCV (80.0-100.0) fL MCH (25.0-35.0) pg MCHC (31.0-37.0) g/dL RDW (11.5-15.5) % Plt Count (150-450) k/uL Neutrophils % % Lymphocytes % % Monocytes % % Eosinophils % % Basophils % % Neutrophils # (1.3-7.7) k/uL Lymphocytes # (1.0-4.8) k/uL Monocytes # (0-1.0) k/uL Eosinophils # (0-0.7) k/uL Basophils # (0-0.2) k/uL Sodium 138 (137-145) mmol/L Potassium 4.1 (3.5-5.1) mmol/L Chloride 101 (98-107) mmol/L Carbon Dioxide 28 (22-30) mmol/L Anion Gap 9 mmol/L BUN 10 (7-17) mg/dL Creatinine 0.77 (0.52-1.04) mg/dL Est GFR (CKD-EPI)AfAm >90 (>60 ml/min/1.73 sqM) Est GFR (CKD-EPI)NonAf >90 (>60 ml/min/1.73 sqM) Glucose 105 H (74-99) mg/dL Calcium 9.5 (8.4-10.2) mg/dL Total Bilirubin 0.5 (0.2-1.3) mg/dL AST 16 (14-36) U/L ALT 24 (9-52) U/L Alkaline Phosphatase 77 (38-126) U/L Total Protein 7.3 (6.3-8.2) g/dL Albumin 4.0 (3.5-5.0) g/dL Amylase 61 (30-110) U/L Lipase 23 (23-300) U/L Urine Color Light Yellow Urine Appearance Cloudy H (Clear) Urine pH 7.0 (5.0-8.0) Ur Specific [place] 1.008 (1.001-1.035) Urine Protein Negative (Negative) Urine Glucose (UA) Negative (Negative) Urine Ketones Negative (Negative) Urine Blood Negative (Negative) Urine Nitrite Negative (Negative) Urine Bilirubin Negative (Negative) Urine Urobilinogen <2.0 (<2.0) mg/dL Ur Leukocyte Esterase Small H (Negative) Urine WBC 10 H (0-5) /hpf Ur Squamous Epith Cells 1 (0-4) /hpf Urine Bacteria Moderate H (None) /hpf Urine Mucus Rare H (None) /hpf Urine HCG, Qual Not Detected (Not Detectd) 02/27/18 Range/Units 03:00 WBC 16.0 H (3.8-10.6) k/uL RBC 4.27 (3.80-5.40) m/uL Hgb 13.2 (11.4-16.0) gm/dL Hct 39.8 (34.0-46.0) % MCV 93.4 (80.0-100.0) fL MCH 30.8 (25.0-35.0) pg MCHC 33.0 (31.0-37.0) g/dL RDW 13.0 (11.5-15.5) % Plt Count 507 H (150-450) k/uL Neutrophils % 80 % Lymphocytes % 12 % Monocytes % 5 % Eosinophils % 2 % Basophils % 1 % Neutrophils # 12.8 H (1.3-7.7) k/uL Lymphocytes # 1.9 (1.0-4.8) k/uL Monocytes # 0.8 (0-1.0) k/uL Eosinophils # 0.3 (0-0.7) k/uL Basophils # 0.1 (0-0.2) k/uL Sodium (137-145) mmol/L Potassium (3.5-5.1) mmol/L Chloride (98-107) mmol/L Carbon Dioxide (22-30) mmol/L Anion Gap mmol/L BUN (7-17) mg/dL Creatinine (0.52-1.04) mg/dL Est GFR (CKD-EPI)AfAm (>60 ml/min/1.73 sqM) Est GFR (CKD-EPI)NonAf (>60 ml/min/1.73 sqM) Glucose (74-99) mg/dL Calcium (8.4-10.2) mg/dL Total Bilirubin (0.2-1.3) mg/dL AST (14-36) U/L ALT (9-52) U/L Alkaline Phosphatase (38-126) U/L Total Protein (6.3-8.2) g/dL Albumin (3.5-5.0) g/dL Amylase (30-110) U/L Lipase (23-300) U/L Urine Color Urine Appearance (Clear) Urine pH (5.0-8.0) Ur Specific [place] (1.001-1.035) Urine Protein (Negative) Urine Glucose (UA) (Negative) Urine Ketones (Negative) Urine Blood (Negative) Urine Nitrite (Negative) Urine Bilirubin (Negative) Urine Urobilinogen (<2.0) mg/dL Ur Leukocyte Esterase (Negative) Urine WBC (0-5) /hpf Ur Squamous Epith Cells (0-4) /hpf Urine Bacteria (None) /hpf Urine Mucus (None) /hpf Urine HCG, Qual (Not Detectd) Disposition Clinical Impression: Abdominal pain Disposition: ADMITTED IP TO THIS [facility] Condition: Fair Referrals: Laurence Haque MD [Primary Care Provider] - 1-2 days
[2018-02-27] MEDS: MORPHINE SULFATE 4 MG/ML SYRINGE IV PRN ×3 (06:26→20:37)
[2018-02-27] MEDS: GABAPENTIN 300 MG CAP PO SCH ×5 (07:44→21:56)
[2018-02-27] MEDS ORDERED: LACTATED RINGERS 1,000 ML IV SCH (09:30)
[2018-02-27] MEDS: FOLIC ACID 1 MG TAB PO SCH (09:37)
[2018-02-27] MEDS: LEVOTHYROXINE 100 MCG TAB PO SCH (09:37)
[2018-02-27] MEDS: PYRIDOXINE 50 MG TAB PO SCH (09:37)
[2018-02-27] MEDS: PANTOPRAZOLE 40 MG TABLET PO SCH (09:38)
[2018-02-27] MEDS: OXYBUTYNIN CHLORIDE 5 MG TAB PO SCH ×3 (09:38→21:56)
[2018-02-27] MEDS: FAMOTIDINE 20 MG TAB PO SCH ×2 (09:38→20:38)
[2018-02-27] MEDS: BACLOFEN 10 MG TAB PO SCH ×3 (09:38→20:38)
[2018-02-27] MEDS: LACTATED RINGERS 1,000 ML IV SCH ×2 (09:41→16:45)
[2018-02-27] MEDS: PIPERACILLIN-TAZOBACTAM 3.375 GM in DEXTROSE/WATER 1 50ML.BAG IVPB SCH ×2 (09:58→18:51)
--- NOTE | 2018-02-27 10:19 | P.GSCN ---
History of Present Illness Consult date: 02/27/18 Reason for Consult: Abdominal pain History of present illness: Is a 47-year-old female who was made through the emergency room with complaints of epigastric and right upper quadrant abdominal pain. Patient states her pain was 8 out 10. She states it is improved slightly this morning. She's also had some nausea. 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 Year Discovered:: 01/08/17 MDRO Source:: BLOOD Past Surgical History: Appendectomy, Tubal Ligation Additional Past Surgical History / Comment(s): neck fusion, carpal tunnel Past Anesthesia/Blood Transfusion Reactions: No Reported Reaction, Unable to Obtain Past Psychological History: No Psychological Hx Reported Smoking Status: Current every day smoker Past Alcohol Use History: Occasional Past Drug Use History: None Reported - Past Family History Father History Unknown: Yes Family Medical History: Unable to Obtain Mother History Unknown: Yes Family Medical History: Unable to Obtain Medications and Allergies Home Medications Medication Instructions Recorded Confirmed Type Loratadine [Claritin] 10 mg PO DAILY 02/01/17 12/17/17 History Omeprazole [PriLOSEC] 40 mg PO DAILY 02/01/17 12/17/17 History Baclofen [Lioresal] 20 mg PO TID 11/04/17 12/17/17 History Folic Acid 0.4 mg PO DAILY 11/04/17 12/17/17 History Gabapentin [Neurontin] 600 mg PO Q4H 11/04/17 12/17/17 History Levothyroxine Sodium [Synthroid] 100 mcg PO DAILY 11/04/17 12/17/17 History Oxybutynin Chloride [Ditropan] 5 mg PO TID 11/04/17 12/17/17 History Naproxen 500 mg PO Q8H PRN 12/17/17 12/17/17 History Pyridoxine [Vitamin B-6] 50 mg PO DAILY 12/17/17 12/17/17 History Nicotine 14Mg/24Hr Patch [Habitrol] 1 patch TRANSDERM DAILY #7 patch 12/22/17 Rx Allergies Allergy/AdvReac Type Severity Reaction Status Date / Time acetaminophen Allergy Unknown Verified 02/27/18 01:35 aspirin Allergy Rash/Hives Verified 02/27/18 01:35 Milk Containing Products Allergy Nausea & Verified 02/27/18 01:35 Vomiting Surgical - Exam Vital Signs Temp Pulse Resp BP Pulse Ox 98.4 F 99 18 112/78 99 02/27/18 01:32 02/27/18 01:32 02/27/18 01:32 02/27/18 01:32 02/27/18 01:32 - General well developed, well nourished, no distress - Eyes PERRL - ENT normal pinna - Neck no masses - Respiratory normal expansion - Cardiovascular Rhythm: regular - Abdomen Epigastric and right quadrant tenderness Abdomen: soft Results - Labs 02/27/18 03:00 02/27/18 03:00 Abnormal Lab Results - Last 24 Hours (Table) 02/27/18 02/27/18 02/27/18 Range/Units 02:04 03:00 03:00 WBC 16.0 H (3.8-10.6) k/uL Plt Count 507 H (150-450) k/uL Neutrophils # 12.8 H (1.3-7.7) k/uL Glucose 105 H (74-99) mg/dL Urine Appearance Cloudy H (Clear) Ur Leukocyte Esterase Small H (Negative) Urine WBC 10 H (0-5) /hpf Urine Bacteria Moderate H (None) /hpf Urine Mucus Rare H (None) /hpf Diabetes panel 02/27/18 Range/Units 03:00 Sodium 138 (137-145) mmol/L Potassium 4.1 (3.5-5.1) mmol/L Chloride 101 (98-107) mmol/L Carbon Dioxide 28 (22-30) mmol/L BUN 10 (7-17) mg/dL Creatinine 0.77 (0.52-1.04) mg/dL Glucose 105 H (74-99) mg/dL Calcium 9.5 (8.4-10.2) mg/dL AST 16 (14-36) U/L ALT 24 (9-52) U/L Alkaline Phosphatase 77 (38-126) U/L Total Protein 7.3 (6.3-8.2) g/dL Albumin 4.0 (3.5-5.0) g/dL Calcium panel 02/27/18 Range/Units 03:00 Calcium 9.5 (8.4-10.2) mg/dL Albumin 4.0 (3.5-5.0) g/dL Pituitary panel 02/27/18 Range/Units 03:00 Sodium 138 (137-145) mmol/L Potassium 4.1 (3.5-5.1) mmol/L Chloride 101 (98-107) mmol/L Carbon Dioxide 28 (22-30) mmol/L BUN 10 (7-17) mg/dL Creatinine 0.77 (0.52-1.04) mg/dL Glucose 105 H (74-99) mg/dL Calcium 9.5 (8.4-10.2) mg/dL Adrenal panel 02/27/18 Range/Units 03:00 Sodium 138 (137-145) mmol/L Potassium 4.1 (3.5-5.1) mmol/L Chloride 101 (98-107) mmol/L Carbon Dioxide 28 (22-30) mmol/L BUN 10 (7-17) mg/dL Creatinine 0.77 (0.52-1.04) mg/dL Glucose 105 H (74-99) mg/dL Calcium 9.5 (8.4-10.2) mg/dL Total Bilirubin 0.5 (0.2-1.3) mg/dL AST 16 (14-36) U/L ALT 24 (9-52) U/L Alkaline Phosphatase 77 (38-126) U/L Total Protein 7.3 (6.3-8.2) g/dL Albumin 4.0 (3.5-5.0) g/dL Assessment and Plan Assessment: Abdominal pain. Patient will undergo computed tomography scan of the abdomen. She'll insert undergo ultrasound the gallbladder and HIDA scan due to the right upper quadrant nature of her pain. We'll start her on antibiotics.
--- NOTE | 2018-02-27 10:59 | US ---
EXAMINATION TYPE: US gallbladder DATE OF EXAM: 02/27/2018 COMPARISON: NONE CLINICAL HISTORY: Right upper quadrant pain. EXAM MEASUREMENTS: Liver Length: 17.3 cm Gallbladder Wall: 0.5 cm CBD: 0.6 cm Right Kidney: 11.9 x 4.1 x 5.5 cm Pancreas: visualized portions wnl, limited by overlying bowel gas Liver: wnl Gallbladder: thickened wall, pericholecystic fluid, small mobile stones with shadowing, distended at 10.4 cm. Evidence for sonographic Graham's sign: Yes CBD: measures upper limits of normal Right Kidney: No hydronephrosis or masses seen Limited views of the pancreas are unremarkable. The liver is normal in size without evidence of biliary dilatation. There are small stones within the gallbladder. The gallbladder wall is thickened and there is pericho lecystic fluid. The distal common hepatic duct measures 6 mm. There is a positive sonographic Graham' s sign. The right kidney is unremarkable. IMPRESSION: CHOLELITHIASIS AND PROBABLE ACUTE CHOLECYSTITIS.
[2018-02-27] MEDS: IOPAMIDOL-300 CONTRAST 30 ML VIAL (ORAL USE) PO PRN ×2 (11:07→12:07)
--- NOTE | 2018-02-27 13:36 | CT ---
EXAMINATION TYPE: CT abdomen pelvis w con DATE OF EXAM: 02/27/2018 REFERENCE: NONE HISTORY: Right upper quadrant, epigastric pain HISTORY: epigastric pain REFERENCE: NONE CT DLP: 1138.2 mGy Automated exposure control for dose reduction was used. TECHNIQUE: Helical acquisition through the abdomen and pelvis was obtained following the oral ingesti on of with Oral Contrast and following intravenous administration of 100 mL of Isovue 300. The data w as reformatted in axial, coronal and sagittal projections. FINDINGS: There is mild atelectasis in the right middle lobe. There is no pleural or pericardial flu id. The heart is not enlarged. Within the abdomen, the liver is prominent measuring 22 cm. The gallbladder is distended with pericho lecystic fluid. There is old granulomatous disease in the spleen. Both adrenal glands are normal. The pancreas is unremarkable. Both kidneys demonstrate function and appear morphologically normal. There is no significant retroperitoneal, iliac or inguinal adenopathy. There is mild thickening of the bladder wall. The uterus is unremarkable. The ovaries are not clearly visualized. There is no significant diverticular change and there is no radiographic evidence of diverticulitis. The appendix is normal. Small bowel loops are normal in caliber. There is no free air identified. There is mild facet arthropathy in the lower lumbar facets. No bony destructive lesion is seen. IMPRESSION: 1. FINDINGS CONSISTENT WITH ACUTE ACALCULOUS CHOLECYSTITIS. 2. HEPATOMEGALY, LIKELY SECONDARY TO L1 LOBE. 3. OLD GRANULOMATOUS DISEASE OF THE SPLEEN. 4. MILD THICKENING OF THE BLADDER WALL. PLEASE CORRELATE FOR CYSTITIS. 5. MILD DEGENERATIVE CHANGE WITHIN THE SPINE.
--- NOTE | 2018-02-27 15:59 | P.HPIM ---
History of Present Illness H&P Date: 02/27/18 Chief Complaint: Abdominal pain Patient is a 47 year old female who presented to [facility] emergency room the chief complaint of abdominal pain patient describes a severe pain in the epigastric area that started about 12 hours prior to presentation she was evaluated in the emergency room she had a computed tomography scan of the abdomen and pelvis and ultrasound of the abdomen off were suggestive of cholecystitis patient also had leukocytosis and low-grade fever he was started on IV antibiotic Zosyn and admitted to medical floor surgical consultation was requested. During this admission patient had low blood pressure and required IV fluid boluses. 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 Date of last positivie culture/infection: 01/08/17 MDRO Source:: BLOOD Past Surgical History: Appendectomy, Tubal Ligation Additional Past Surgical History / Comment(s): neck fusion, carpal tunnel Past Anesthesia/Blood Transfusion Reactions: No Reported Reaction, Unable to Obtain Past Psychological History: No Psychological Hx Reported Smoking Status: Current every day smoker Past Alcohol Use History: Occasional Past Drug Use History: None Reported - Past Family History Father History Unknown: Yes Family Medical History: Unable to Obtain Mother History Unknown: Yes Family Medical History: Unable to Obtain Medications and Allergies Home Medications Medication Instructions Recorded Confirmed Type Loratadine [Claritin] 10 mg PO DAILY 02/01/17 02/27/18 History Omeprazole [PriLOSEC] 40 mg PO DAILY 02/01/17 02/27/18 History Baclofen [Lioresal] 20 mg PO TID 11/04/17 02/27/18 History Folic Acid 0.4 mg PO DAILY 11/04/17 02/27/18 History Gabapentin [Neurontin] 600 mg PO Q4H 11/04/17 02/27/18 History Levothyroxine Sodium [Synthroid] 100 mcg PO DAILY 11/04/17 02/27/18 History Oxybutynin Chloride [Ditropan] 5 mg PO TID 11/04/17 02/27/18 History Naproxen 500 mg PO Q8H PRN 12/17/17 02/27/18 History Pyridoxine [Vitamin B-6] 50 mg PO DAILY 12/17/17 02/27/18 History Flaxseed Oil [[place]-3 Flaxseed Oil] 1,000 mg PO DAILY 02/27/18 02/27/18 History Liothyronine Sodium [Cytomel] 5 mcg PO BID 02/27/18 02/27/18 History Magnesium Oxide 400 mg PO DAILY 02/27/18 02/27/18 History Allergies Allergy/AdvReac Type Severity Reaction Status Date / Time acetaminophen Allergy Rash/Hives Verified 02/27/18 11:28 aspirin Allergy Rash/Hives Verified 02/27/18 11:28 Milk Containing Products AdvReac Nausea & Verified 02/27/18 11:28 Vomiting Physical Exam Vitals: Vital Signs Temp Pulse Pulse Resp BP BP Pulse Ox 02/27/18 13:49 95 99/51 02/27/18 12:00 75 18 96/60 99 02/27/18 11:46 16 02/27/18 10:31 92/62 02/27/18 06:44 98.2 F 99 16 95/67 95 02/27/18 06:30 95 18 100/52 96 02/27/18 05:24 85 20 104/67 98 02/27/18 01:32 98.4 F 99 18 112/78 99 Intake and Output 02/27/18 02/27/18 02/27/18 06:59 14:59 22:59 Intake Total 100 Balance 100 Intake: Amount of Fluid Infused ( 100 ml) Other: Voiding Method Toilet Weight 81.647 kg 81.647 kg Head normocephalic and atraumatic Neck supple no JVD no goiter Lungs clear to auscultation bilaterally no wheezing or crackles Heart regular rate and rhythm S1-S2, no rub or gallop Abdomen is soft with tenderness in the epigasric and RUQ positive bowel sounds no hepatosplenomegaly Extremities no edema no cyanosis or clubbing Neuro alert and orientated to 3 Results CBC & Chem 7: 02/27/18 03:00 02/27/18 03:00 Labs: Abnormal Lab Results - Last 24 Hours (Table) 02/27/18 02/27/18 02/27/18 Range/Units 02:04 03:00 03:00 WBC 16.0 H (3.8-10.6) k/uL Plt Count 507 H (150-450) k/uL Neutrophils # 12.8 H (1.3-7.7) k/uL Glucose 105 H (74-99) mg/dL Urine Appearance Cloudy H (Clear) Ur Leukocyte Esterase Small H (Negative) Urine WBC 10 H (0-5) /hpf Urine Bacteria Moderate H (None) /hpf Urine Mucus Rare H (None) /hpf Assessment and Plan Plan: #1 acute cholecystitis with cholelithiasis #2 leukocytosis #3 hypotension suggestive of sepsis #4 possible urinary tract infection #5 underlying history of hypothyroidism #6 underlying history of gastroesophageal reflux disease At this time continue IV Zosyn, add IV Levaquin Continue aggressive fluid management for hypotension Surgical consultation following and planning on cholecystectomy on Thursday
[2018-02-27] MEDS ORDERED: LEVOFLOXACIN 500MG-D5W PMX 500 MG in DEXTROSE/WATER 1 100ML.BAG IVPB SCH (16:00)
[2018-02-27] MEDS ORDERED: LACTATED RINGERS 500 ML IV ONE (16:00)
[2018-02-28] MEDS: GABAPENTIN 300 MG CAP PO SCH ×6 (01:26→21:50)
[2018-02-28] MEDS: LACTATED RINGERS 1,000 ML IV SCH ×5 (01:26→20:13)
[2018-02-28] MEDS: PIPERACILLIN-TAZOBACTAM 3.375 GM in DEXTROSE/WATER 1 50ML.BAG IVPB SCH ×3 (01:26→19:05)
[2018-02-28] MEDS: MORPHINE SULFATE 4 MG/ML SYRINGE IV PRN ×3 (01:34→21:53)
[2018-02-28] MEDS: LEVOTHYROXINE 100 MCG TAB PO SCH (05:56)
[2018-02-28 07:31] LABS: Basophils # (A) 0.1 k/uL (0-0.2); Basophils % (A) 1 %; Eosinophils # (A) 0.1 k/uL (0-0.7); Eosinophils % (A) 1 %; HCT 33.2 % (34.0-46.0); Lymphocytes # (A) 1.4 k/uL (1.0-4.8); Lymphocytes % (A) 9 %; MCH 31.4 pg (25.0-35.0); MCHC 33.2 g/dL (31.0-37.0); MCV 94.7 fL (80.0-100.0); Mean Platelet Volume 6.5; Monocytes # (A) 1.1 k/uL (0-1.0); Monocytes % (A) 7 %; Neutrophils # (A) 13.3 k/uL (1.3-7.7); Neutrophils % (A) 83 %; Platelet Count 389 k/uL (150-450); RBC 3.51 m/uL (3.80-5.40); WBC 16.1 k/uL (3.8-10.6)
[2018-02-28 07:48] LABS: Calcium 8.8 mg/dL (8.4-10.2); Total Bilirubin 1.9 mg/dL (0.2-1.3); Total Protein 5.8 g/dL (6.3-8.2)
[2018-02-28] MEDS: ONDANSETRON 4 MG/2 ML VIAL IVP PRN (07:48)
[2018-02-28] MEDS ORDERED: LACTATED RINGERS 1,000 ML IV STA (08:02)
[2018-02-28] MEDS: FOLIC ACID 1 MG TAB PO SCH (10:32)
[2018-02-28] MEDS: PYRIDOXINE 50 MG TAB PO SCH (10:32)
[2018-02-28] MEDS: BACLOFEN 10 MG TAB PO SCH ×3 (10:32→21:50)
[2018-02-28] MEDS: OXYBUTYNIN CHLORIDE 5 MG TAB PO SCH ×3 (10:32→21:50)
[2018-02-28] MEDS: PANTOPRAZOLE 40 MG TABLET PO SCH (10:32)
[2018-02-28] MEDS: FAMOTIDINE 20 MG TAB PO SCH ×2 (10:32→21:50)
--- NOTE | 2018-02-28 10:35 | P.PN ---
Subjective Progress Note Date: 02/28/18 Patient is a 47 year old female who presented to [facility] emergency room the chief complaint of abdominal pain patient describes a severe pain in the epigastric area that started about 12 hours prior to presentation she was evaluated in the emergency room she had a computed tomography scan of the abdomen and pelvis and ultrasound of the abdomen off were suggestive of cholecystitis patient also had leukocytosis and low-grade fever he was started on IV antibiotic Zosyn and admitted to medical floor surgical consultation was requested. During this admission patient had low blood pressure and required IV fluid boluses. Objective - Vital Signs Vital signs: Vital Signs Temp 100.8 F H 02/28/18 09:59 Pulse 87 02/28/18 09:59 Resp 18 02/28/18 08:00 BP 91/58 02/28/18 09:59 Pulse Ox 95 02/28/18 08:00 Intake & Output 02/27/18 02/28/18 02/28/18 18:59 06:59 18:59 Intake Total 100 Balance 100 Weight 81.647 kg Intake: Amount of Fluid Infused ( 100 ml) Other: Voiding Method Toilet Toilet Toilet - Exam Head normocephalic and atraumatic Neck supple no JVD no goiter Lungs clear to auscultation bilaterally no wheezing or crackles Heart regular rate and rhythm S1-S2, no rub or gallop Abdomen is soft with tenderness in the epigasric and RUQ positive bowel sounds no hepatosplenomegaly Extremities no edema no cyanosis or clubbing Neuro alert and orientated to 3 - Labs CBC & Chem 7: 02/28/18 07:07 02/28/18 07:07 Labs: Abnormal Lab Results - Last 24 Hours (Table) 02/28/18 02/28/18 Range/Units 07:07 07:07 WBC 16.1 H (3.8-10.6) k/uL RBC 3.51 L (3.80-5.40) m/uL Hgb 11.0 L (11.4-16.0) gm/dL Hct 33.2 L (34.0-46.0) % Neutrophils # 13.3 H (1.3-7.7) k/uL Monocytes # 1.1 H (0-1.0) k/uL Glucose 112 H (74-99) mg/dL Total Bilirubin 1.9 H (0.2-1.3) mg/dL AST 110 H (14-36) U/L ALT 141 H (9-52) U/L Alkaline Phosphatase 167 H (38-126) U/L Total Protein 5.8 L (6.3-8.2) g/dL Albumin 3.0 L (3.5-5.0) g/dL Assessment and Plan Plan: #1 acute cholecystitis with cholelithiasis #2 leukocytosis #3 sepsis, with septic shock as evidenced by hypotension, leukocytosis, fever patient received multiple fluid boluses, with minimal improvement in her blood pressure she will be transferred to ICU critical care consult was requested, currently she is maintained on IV Zosyn and IV Levaquin, infectious disease consult was Dr. Light was requested #4 possible urinary tract infection #5 underlying history of hypothyroidism #6 underlying history of gastroesophageal reflux disease At this time continue IV Zosyn, and IV Levaquin Continue aggressive fluid management for hypotension transfer to ICU consult critical care Surgical consultation following and planning on cholecystectomy on Thursday
[2018-02-28 11:26] LABS: Glucose,Whole Blood 136 mg/dL (75-99)
[2018-02-28] MEDS ORDERED: SODIUM CHLORIDE 0.9% 2,000 ML IV ONE (11:33)
--- NOTE | 2018-02-28 11:33 | P.CNPUL ---
History of Present Illness Consult date: 02/28/18 Chief complaint: Acute abdominal pain History of present illness: 47-year-old female patient who presented yesterday to the emergency department with complaints of epigastric and right upper quadrant pain. The pain was quite extensive and it was 8 out of 10 in severity. She had an ultrasound the gallbladder and she was diagnosed having an acute cholecystitis. She was started on IV Zosyn. Overnight she was given 2 L of IV fluids and other 2 L was given this morning for some borderline hypotension and the systolic blood pressure in the mid 80s. The pain is still active for now and the patient's white cell count is at 16.1. On today's blood work, the AST is up to 110, ALC is up to 141 and the bilirubin is up to 1.9. The patient had a lactic acid level of 0.9. She is a bit nauseated. No emesis. She has a right upper quadrant pain. Afebrile for now. General surgeries on the case. Initial plan was to proceed with cholecystectomy him however with these abnormalities in the liver function test that think it's reasonable to get a consult with GI for possible ERCP. Possibilities are still cholecystitis with questionable signs of early cholangitis. She is on Dilaudid for pain control. She is on IV Zosyn. She has on IV fluids and the patient is receiving 125 mL an hour of normal saline. The CAT scan of the abdomen was done yesterday showed findings consistent with acalculous cholecystitis. There was hepatomegaly. A limited disease of the spleen. Degenerative changes of the spine. Review of Systems Constitutional: Reports fatigue, Reports lethargy, Reports weakness Eyes: denies blurred vision, denies bulging eye, denies decreased vision Ears: deny: decreased hearing, ear discharge, earache, tinnitus Ears, nose, mouth and throat: Reports as per HPI Cardiovascular: Denies chest pain, Denies shortness of breath Respiratory: Denies cough Gastrointestinal: Reports abdominal pain, Reports loss of appetite, Reports nausea Genitourinary: Denies dysuria, Denies hematuria Musculoskeletal: Reports gait dysfunction, Reports neck pain Musculoskeletal: absent: ankle pain, ankle stiffness, ankle swelling Integumentary: Denies pruritus, Denies rash Neurological: Reports ataxia, Reports balance difficulties, Reports gait dysfunction, Reports motor disturbance, Reports weakness Psychiatric: Denies anxiety, Denies depression Endocrine: Reports fatigue Hematologic/Lymphatic: Reports as per HPI Allergic/Immunologic: Reports as per HPI 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 Date of last positivie culture/infection: 01/08/17 MDRO Source:: BLOOD Past Surgical History: Appendectomy, Tubal Ligation Additional Past Surgical History / Comment(s): neck fusion, carpal tunnel Past Anesthesia/Blood Transfusion Reactions: No Reported Reaction, Unable to Obtain Past Psychological History: No Psychological Hx Reported Smoking Status: Current every day smoker Past Alcohol Use History: Occasional Past Drug Use History: None Reported - Past Family History Father History Unknown: Yes Family Medical History: Unable to Obtain Mother History Unknown: Yes Family Medical History: Unable to Obtain Medications and Allergies Home Medications Medication Instructions Recorded Confirmed Type Loratadine [Claritin] 10 mg PO DAILY 02/01/17 02/27/18 History Omeprazole [PriLOSEC] 40 mg PO DAILY 02/01/17 02/27/18 History Baclofen [Lioresal] 20 mg PO TID 11/04/17 02/27/18 History Folic Acid 0.4 mg PO DAILY 11/04/17 02/27/18 History Gabapentin [Neurontin] 600 mg PO Q4H 11/04/17 02/27/18 History Levothyroxine Sodium [Synthroid] 100 mcg PO DAILY 11/04/17 02/27/18 History Oxybutynin Chloride [Ditropan] 5 mg PO TID 11/04/17 02/27/18 History Naproxen 500 mg PO Q8H PRN 12/17/17 02/27/18 History Pyridoxine [Vitamin B-6] 50 mg PO DAILY 12/17/17 02/27/18 History Flaxseed Oil [[place]-3 Flaxseed Oil] 1,000 mg PO DAILY 02/27/18 02/27/18 History Liothyronine Sodium [Cytomel] 5 mcg PO BID 02/27/18 02/27/18 History Magnesium Oxide 400 mg PO DAILY 02/27/18 02/27/18 History Allergies Allergy/AdvReac Type Severity Reaction Status Date / Time acetaminophen Allergy Rash/Hives Verified 02/27/18 11:28 aspirin Allergy Rash/Hives Verified 02/27/18 11:28 Milk Containing Products AdvReac Nausea & Verified 02/27/18 11:28 Vomiting Physical Exam Vitals: Vital Signs Temp Pulse Pulse Resp BP BP Pulse Ox 02/28/18 09:59 100.8 F H 87 91/58 02/28/18 08:00 100.1 F H 94 18 83/55 95 02/28/18 07:54 18 02/28/18 03:38 18 02/28/18 03:36 99.3 F 100 18 87/51 96 02/28/18 01:34 92/52 02/28/18 00:00 99.6 F 96 18 88/53 98 02/27/18 20:00 101.3 F H 108 H 18 116/58 97 02/27/18 16:00 99.6 F 94 16 86/52 98 02/27/18 13:49 95 99/51 02/27/18 12:00 75 18 96/60 99 02/27/18 11:46 16 Intake and Output 02/27/18 02/28/18 02/28/18 22:59 06:59 14:59 Other: Voiding Method Toilet Toilet Toilet Gen. appearance the patient a mild abdominal discomfort. Not using accessory muscles of breathing. Head exam was generally normal. There was no scleral icterus or corneal arcus. Mucous membranes were moist. Neck was supple and without jugular venous distension, thyromegaly, or carotid bruits. Carotids were easily palpable bilaterally. There was no adenopathy. Lungs were clear to auscultation and percussion, and with normal diaphragmatic excursion. No wheezes or rales were noted. Cardiac exam revealed the PMI to be normally situated and sized. The rhythm was regular and no extrasystoles were noted during several minutes of auscultation. The first and second heart sounds were normal and physiologic splitting of the second heart sound was noted. There were no murmurs, rubs, clicks, or gallops. Examination of the abdomen shows a right upper quadrant direct tenderness. No rebound tensile guarding. No ascites. Bowel sounds are hypoactive. Examination of the extremities revealed easily palpable radial, femoral and pedal pulses. There was no cyanosis, clubbing or edema. Examination of the skin revealed no evidence of significant rashes, suspicious appearing nevi or other concerning lesions. Neurologically the patient is awake and alert. She has chronic weakness in her lower extremity especially on the left related to a previous spinal stroke. Gait was not assessed at this point in time. Cranial nerves are intact. No focal neurological deficit and the cranial nerves. Pupils are equal reactive to light. Results - Laboratory Findings CBC and BMP: 02/28/18 07:07 02/28/18 07:07 Abnormal lab findings: Abnormal Labs 02/27/18 02/27/18 02/27/18 02:04 03:00 03:00 WBC 16.0 H RBC Hgb Hct Plt Count 507 H Neutrophils # 12.8 H Monocytes # Glucose 105 H POC Glucose (mg/dL) Total Bilirubin AST ALT Alkaline Phosphatase Total Protein Albumin Urine Appearance Cloudy H Ur Leukocyte Esterase Small H Urine WBC 10 H Urine Bacteria Moderate H Urine Mucus Rare H 02/28/18 02/28/18 02/28/18 07:07 07:07 11:25 WBC 16.1 H RBC 3.51 L Hgb 11.0 L Hct 33.2 L Plt Count Neutrophils # 13.3 H Monocytes # 1.1 H Glucose 112 H POC Glucose (mg/dL) 136 H Total Bilirubin 1.9 H AST 110 H ALT 141 H Alkaline Phosphatase 167 H Total Protein 5.8 L Albumin 3.0 L Urine Appearance Ur Leukocyte Esterase Urine WBC Urine Bacteria Urine Mucus Assessment and Plan Plan: Assessment 1 acute a calculus cholecystitis yet with recent disturbances in the liver function tests and elevation of bilirubin, there is a constellation for an acute cholangitis with choledocholithiasis. The patient got moved to the intensive care unit because of signs of early sepsis. The patient was hypotensive. She remained hypotensive at the 4l of IV fluids and fluid resuscitation is still ongoing. 2 hypotension, likely secondary to early signs of sepsis secondary to acute cholecystitis/cholangitis 3 leukocytosis secondary to above 4 abdominal pain secondary to above essentially involving the right upper quadrant 5 hypothyroidism 6 history of spinal CVA Plan Given additional liter of IV fluids in the form of normal saline and keep the infusion at 150 mL an hour. IV Zosyn. Check amylase. Check lipase. Check lactic acid level. General surgeries on the case. Obtain a GI consultation and consideration for ERCP specially there is ongoing elevation of the bilirubin and the rest of the liver function tests. Heparin subcu for DVT prophylaxis. Surgeries on the case. Dialyzes for pain control. ICU monitoring. We'll continue to follow
[2018-02-28] MEDS: HYDROmorphone 1 MG/ML 1 ML SYRINGE IVP PRN ×3 (12:08→20:13)
--- NOTE | 2018-02-28 12:26 | P.PN ---
Progress Note - Text Progress Note Date: 02/28/18 The patient developed some hypotension yesterday. She received some fluid boluses. She was transferred to the ICU this morning. She states her pain is still 8 out of 10. The patient's blood work shows evidence of choledocholithiasis. She had some elevated liver transaminases, bilirubin and alk phos. On exam her vital signs are stable. She is currently receiving a bolus for her blood pressure. Abdomen soft there is some mild epigastric tenderness Acute cholecystitis with choledocholithiasis. Patient will have a GI consult for possible ERCP. We will plan for laparoscopic cholecystectomy when stable.
[2018-02-28] MEDS: HEPARIN SODIUM,PORCINE 5,000 UNIT/ML 1 ML VIAL SQ SCH (15:54)
--- NOTE | 2018-02-28 16:40 | P.CONS ---
History of Present Illness - Reason for Consult Consult date: 02/28/18 - Chief Complaint The abdominal pain - History of Present Illness 47-year-old female presents to emergency center with a several-day history of severe abdominal pain. She relates that the pain was epigastric in nature and despite multiple events to make it better such as soda bicarbonate water and antiacids she continue to feel poorly. She had nausea post-emesis she had no hematemesis. She had fever with chills and the pain continued to be severe 8 out of 10 in counseling presented to the emergency center. Imaging study with CAT scan was performed with concerns to acalculus cholecystitis however ultrasound reveals evidence of cholelithiasis and cholecystitis. She's been seen by surgery however there is evidence of significant change of her status in that she became more septic and had evidence of a marked increase of her total bilirubin and transaminases. As we concerned to obstructing stone and consult with gastroenterology has been placed. After their evaluation and possible ERCP, the patient will then have a laparoscopic cholecystectomy. At the moment she is feeling somewhat better she's having a clear liquid diet and is not having nausea or emesis and her pain is under much better control. She believes her fever and chills have improved although 101.3 fever earlier. Review of Systems HEENT:Denies headache or acute visual change. Denies sinus or mouth discomforts. Denies neck stiffness or pain. Denies significant oral cavity pain. Denies difficulty on swallowing. Lungs: Denies significant shortness of breath, cough, sputum production, or hemoptysis. Cardiovascular: Denies significant shortness of breath, chest pain, chest wall pain, orthopnea, dyspnea on exertion, syncope Gastrointestinal: As per the HPI had nausea and emesis before coming to hospital with significant abdominal pain which she's had no hematemesis melena or hematochezia. Musculoskeletal: denies significant myalgias or arthralgias. No new joint swelling. Denies new back pain. Skin: Denies new rash or lesions. No new ulcers or wounds are related.. Neuro: Denies headache or visual change. Denies any new onset weakness or difficulty with ambulation. Denies falls or seizures. Psychiatric:Denies anxiety or depression. Endocrine: Denies significant fatigue, denies significant weight loss or weight gain. 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 Is medically disabled. 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 Is an ongoing tobacco user. Denies alcohol use. No current recreational drug use. No experience. No international travel. Pet dog at home Smoking Status: Current every day smoker Past Alcohol Use History: Occasional Past Drug Use History: None Reported - Past Family History Father History Unknown: Yes Family Medical History: Unable to Obtain Mother History Unknown: Yes Family Medical History: Unable to Obtain Medications and Allergies Home Medications and Allergies Comment(s): Current Medications Baclofen (Lioresal) 10 mg PO TID [facility] Last Admin: 02/28/18 10:32 Dose: 10 mg Famotidine (Pepcid) 20 mg PO BID [facility] Last Admin: 02/28/18 10:32 Dose: 20 mg Folic Acid (Folic Acid) 1 mg PO DAILY [facility] Last Admin: 02/28/18 10:32 Dose: 1 mg Gabapentin (Neurontin) 600 mg PO Q4H [facility] Last Admin: 02/28/18 14:50 Dose: 600 mg Heparin Sodium (Porcine) (Heparin) 5,000 unit SQ Q8HR [facility] Last Admin: 02/28/18 15:54 Dose: 5,000 unit Hydromorphone HCl (Dilaudid) 1 mg IVP Q4HR PRN PRN Reason: Pain Last Admin: 02/28/18 15:53 Dose: 1 mg Lactated Ringer's (Lactated Ringers) 1,000 mls @ 150 mls/hr IV .Q6H40M [facility] Last Admin: 02/28/18 14:50 Dose: 150 mls/hr Piperacillin/Tazobactam/ (Dextrose 3.375 gm/ IV Solution) 50 mls @ 12.5 mls/hr IVPB Q8H [facility] Last Admin: 02/28/18 10:50 Dose: 12.5 mls/hr Levothyroxine Sodium (Synthroid) 100 mcg PO DAILY@0600 [facility] Last Admin: 02/28/18 05:56 Dose: 100 mcg Morphine Sulfate (Morphine Sulfate (Inj)) 4 mg IV Q4HR PRN PRN Reason: Severe Pain Last Admin: 02/28/18 05:56 Dose: 4 mg Naloxone HCl (Narcan) 0.2 mg IV Q2M PRN PRN Reason: Opioid Reversal Ondansetron HCl (Zofran) 4 mg IVP Q6HR PRN PRN Reason: Nausea And Vomiting Last Admin: 02/28/18 07:48 Dose: 4 mg Oxybutynin Chloride (Ditropan) 5 mg PO TID [facility] Last Admin: 02/28/18 10:32 Dose: 5 mg Pantoprazole Sodium (Protonix) 40 mg PO DAILY [facility] Last Admin: 02/28/18 10:32 Dose: 40 mg Pyridoxine HCl (Vitamin B-6) 50 mg PO DAILY [facility] Last Admin: 02/28/18 10:32 Dose: 50 mg Home Medications Medication Instructions Recorded Confirmed Type Loratadine [Claritin] 10 mg PO DAILY 02/01/17 02/27/18 History Omeprazole [PriLOSEC] 40 mg PO DAILY 02/01/17 02/27/18 History Baclofen [Lioresal] 20 mg PO TID 11/04/17 02/27/18 History Folic Acid 0.4 mg PO DAILY 11/04/17 02/27/18 History Gabapentin [Neurontin] 600 mg PO Q4H 11/04/17 02/27/18 History Levothyroxine Sodium [Synthroid] 100 mcg PO DAILY 11/04/17 02/27/18 History Oxybutynin Chloride [Ditropan] 5 mg PO TID 11/04/17 02/27/18 History Naproxen 500 mg PO Q8H PRN 12/17/17 02/27/18 History Pyridoxine [Vitamin B-6] 50 mg PO DAILY 12/17/17 02/27/18 History Flaxseed Oil [Roberts-3 Flaxseed Oil] 1,000 mg PO DAILY 02/27/18 02/27/18 History Liothyronine Sodium [Cytomel] 5 mcg PO BID 02/27/18 02/27/18 History Magnesium Oxide 400 mg PO DAILY 02/27/18 02/27/18 History Allergies Allergy/AdvReac Type Severity Reaction Status Date / Time acetaminophen Allergy Rash/Hives Verified 02/27/18 11:28 aspirin Allergy Rash/Hives Verified 02/27/18 11:28 Milk Containing Products AdvReac Nausea & Verified 02/27/18 11:28 Vomiting Physical Exam Vitals: Vital Signs Temp Pulse Pulse Pulse Resp BP BP 02/28/18 16:00 98.8 F 83 20 98/57 02/28/18 15:00 91 17 96/52 02/28/18 14:00 93 19 86/53 02/28/18 13:40 98 20 95/64 02/28/18 13:30 89 20 95/64 02/28/18 13:20 55 L 18 104/80 02/28/18 13:10 90 22 91/60 02/28/18 13:00 106 H 27 H 91/60 02/28/18 12:50 91 20 80/61 02/28/18 12:40 90 21 88/57 02/28/18 12:30 86 22 88/57 02/28/18 12:20 80 20 91/55 02/28/18 12:10 86 23 90/48 02/28/18 12:00 85 24 90/48 02/28/18 11:50 81 24 92/53 02/28/18 11:44 85 26 H 92/53 02/28/18 09:59 100.8 F H 87 02/28/18 08:00 100.1 F H 94 18 02/28/18 07:54 18 02/28/18 03:38 18 02/28/18 03:36 99.3 F 100 18 87/51 02/28/18 01:34 92/52 02/28/18 00:00 99.6 F 96 18 88/53 02/27/18 20:00 101.3 F H 108 H 18 116/58 BP Pulse Ox 02/28/18 16:00 94 L 02/28/18 15:00 90 L 02/28/18 14:00 95 02/28/18 13:40 96 02/28/18 13:30 96 02/28/18 13:20 95 02/28/18 13:10 96 02/28/18 13:00 98 02/28/18 12:50 97 02/28/18 12:40 97 02/28/18 12:30 98 02/28/18 12:20 95 02/28/18 12:10 98 02/28/18 12:00 97 02/28/18 11:50 98 02/28/18 11:44 95 02/28/18 09:59 91/58 02/28/18 08:00 83/55 95 02/28/18 07:54 02/28/18 03:38 02/28/18 03:36 96 02/28/18 01:34 02/28/18 00:00 98 02/27/18 20:00 97 Intake and Output 02/28/18 02/28/18 02/28/18 06:59 14:59 22:59 Intake Total 2000 350 Output Total 1100 750 Balance 900 -400 Intake: Intake, IV Titration 2000 350 Amount Lactated Ringers 1,000 ml 300 @ 150 mls/hr IV .Q6H40M [facility] Rx#:[id number] Levofloxacin 500Mg-D5w 50 Pmx 500 mg In Dextrose/ Water 1 100ml.bag @ 100 mls/hr IVPB Q24H [facility] Rx#: [id number] Sodium Chloride 0.9% 2, 2000 000 ml @ 999 mls/hr IV . Q2H1M [facility] Rx#:[id number] Output: Urine 1100 750 Other: Voiding Method Toilet Toilet Pleasant 47-year-old female who appears older than her stated age, is much more comfortable than noted at admission HEENT: Anicteric conjunctiva are pink and moist nasal mucosa grossly intact without significant lesions, there is no thrush. Neck: The neck is supple without significant lymphadenopathy or thyromegaly. Lungs: Good bilateral air entry without significant crackles or wheezing. There is no significant bronchial sounds. There is no egophony or dullness. Heart: Regular rate and rhythm with an audible S1-S2, no S3 no S4. There is no significant murmur click or rub, PMI was nondisplaced. Abdomen: Few bowel sounds are noted, there is distinct tenderness in the right upper quadrant to palpation and percussion. Organomegaly is not palpable. The abdomen is not rigid. She has no flank tenderness. There is no bruising to the abdominal wall. Extremities: The upper extremities have excellent pulses they are symmetric, no significant petechiae or telangiectasia. No splinter hemorrhages were noted. The lower extremities are free from significant edema. The peripheral pulses were 2+ and symmetric. Neuro: Awake alert oriented to person place and time. There are no acute new gross focal sensory motor deficits. Results CBC & Chem 7: 02/28/18 07:07 02/28/18 07:07 Labs: Abnormal Lab Results - Last 24 Hours (Table) 02/28/18 02/28/18 02/28/18 Range/Units 07:07 07:07 11:25 WBC 16.1 H (3.8-10.6) k/uL RBC 3.51 L (3.80-5.40) m/uL Hgb 11.0 L (11.4-16.0) gm/dL Hct 33.2 L (34.0-46.0) % Neutrophils # 13.3 H (1.3-7.7) k/uL Monocytes # 1.1 H (0-1.0) k/uL Glucose 112 H (74-99) mg/dL POC Glucose (mg/dL) 136 H (75-99) mg/dL Total Bilirubin 1.9 H (0.2-1.3) mg/dL AST 110 H (14-36) U/L ALT 141 H (9-52) U/L Alkaline Phosphatase 167 H (38-126) U/L Total Protein 5.8 L (6.3-8.2) g/dL Albumin 3.0 L (3.5-5.0) g/dL Laboratory Results WBC 16.1 k/uL (3.8-10.6) H 02/28/18 07:07 RBC 3.51 m/uL (3.80-5.40) L 02/28/18 07:07 Hgb 11.0 gm/dL (11.4-16.0) L 02/28/18 07:07 Hct 33.2 % (34.0-46.0) L 02/28/18 07:07 MCV 94.7 fL (80.0-100.0) 02/28/18 07:07 MCH 31.4 pg (25.0-35.0) 02/28/18 07:07 MCHC 33.2 g/dL (31.0-37.0) 02/28/18 07:07 RDW 13.0 % (11.5-15.5) 02/28/18 07:07 Plt Count 389 k/uL (150-450) 02/28/18 07:07 Neutrophils % 83 % 02/28/18 07:07 Lymphocytes % 9 % 02/28/18 07:07 Monocytes % 7 % 02/28/18 07:07 Eosinophils % 1 % 02/28/18 07:07 Basophils % 1 % 02/28/18 07:07 Neutrophils # 13.3 k/uL (1.3-7.7) H 02/28/18 07:07 Lymphocytes # 1.4 k/uL (1.0-4.8) 02/28/18 07:07 Monocytes # 1.1 k/uL (0-1.0) H 02/28/18 07:07 Eosinophils # 0.1 k/uL (0-0.7) 02/28/18 07:07 Basophils # 0.1 k/uL (0-0.2) 02/28/18 07:07 Sodium 140 mmol/L (137-145) 02/28/18 07:07 Potassium 4.0 mmol/L (3.5-5.1) 02/28/18 07:07 Chloride 104 mmol/L (98-107) 02/28/18 07:07 Carbon Dioxide 29 mmol/L (22-30) 02/28/18 07:07 Anion Gap 7 mmol/L 02/28/18 07:07 BUN 9 mg/dL (7-17) 02/28/18 07:07 Creatinine 0.98 mg/dL (0.52-1.04) 02/28/18 07:07 Est GFR (CKD-EPI)AfAm 78 (>60 ml/min/1.73 sqM) 02/28/18 07:07 Est GFR (CKD-EPI)NonAf 68 (>60 ml/min/1.73 sqM) 02/28/18 07:07 Glucose 112 mg/dL (74-99) H 02/28/18 07:07 POC Glucose (mg/dL) 136 mg/dL (75-99) H 02/28/18 11:25 POC Glu Ladle Cleaner ID Eugenia Muhammad 02/28/18 11:25 Plasma Lactic Acid Benito 0.9 mmol/L (0.7-2.0) 02/27/18 11:15 Calcium 8.8 mg/dL (8.4-10.2) 02/28/18 07:07 Total Bilirubin 1.9 mg/dL (0.2-1.3) H 02/28/18 07:07 AST 110 U/L (14-36) H 02/28/18 07:07 ALT 141 U/L (9-52) H 02/28/18 07:07 Alkaline Phosphatase 167 U/L (38-126) H 02/28/18 07:07 Total Protein 5.8 g/dL (6.3-8.2) L 02/28/18 07:07 Albumin 3.0 g/dL (3.5-5.0) L 02/28/18 07:07 Amylase 61 U/L (30-110) 02/27/18 03:00 Lipase 23 U/L (23-300) 02/27/18 03:00 Urine Color Light Yellow 02/27/18 02:04 Urine Appearance Cloudy (Clear) H 02/27/18 02:04 Urine pH 7.0 (5.0-8.0) 02/27/18 02:04 Ur Specific [place] 1.008 (1.001-1.035) 02/27/18 02:04 Urine Protein Negative (Negative) 02/27/18 02:04 Urine Glucose (UA) Negative (Negative) 02/27/18 02:04 Urine Ketones Negative (Negative) 02/27/18 02:04 Urine Blood Negative (Negative) 02/27/18 02:04 Urine Nitrite Negative (Negative) 02/27/18 02:04 Urine Bilirubin Negative (Negative) 02/27/18 02:04 Urine Urobilinogen <2.0 mg/dL (<2.0) 02/27/18 02:04 Ur Leukocyte Esterase Small (Negative) H 02/27/18 02:04 Urine WBC 10 /hpf (0-5) H 02/27/18 02:04 Ur Squamous Epith Cells 1 /hpf (0-4) 02/27/18 02:04 Urine Bacteria Moderate /hpf (None) H 02/27/18 02:04 Urine Mucus Rare /hpf (None) H 02/27/18 02:04 Urine HCG, Qual Not Detected (Not Detectd) 02/27/18 02:[address] scan - abdomen: report reviewed US - abdomen: report reviewed (Cholelithiasis and cholecystitis) Assessment and Plan (1) Sepsis Narrative/Plan: 47-year-old female presents to Hospital with a 2 day history of increasing abdominal pain that became so severe that she came by EMS. At presentation pain level as a 10 out of 10 and was found evidence of cholelithiasis and acute cholecystitis. The patient had hypotension and is responding to fluid challenge at this point in time. She has been seen by general surgery and with the elevation of her total bilirubin and AST and ALT a gastroenterology consult has been requested for evaluation of the bile duct before a laparoscopic cholecystectomy will be performed. She fortunately is feeling somewhat better at the moment and is able to ingest some clear fluids. Leukocytosis is from the sepsis from her cholecystitis. Antibiotic therapy with piperacillin tazobactam is adequate and levofloxacin was discontinued. She was monitored in the postoperative time frame and antimicrobial therapy at the time of discharge will be evaluated. Current Visit: Yes Status: Acute Code(s): A41.9 - SEPSIS, UNSPECIFIED ORGANISM SNOMED Code(s): 22151852 (2) Cholecystitis with cholelithiasis Current Visit: Yes Status: Acute Code(s): K80.10 - CALCULUS OF GALLBLADDER W CHRONIC CHOLECYST W/O OBSTRUCTION SNOMED Code(s): 034417292 (3) Elevated bilirubin Current Visit: Yes Status: Acute Code(s): R17 - UNSPECIFIED JAUNDICE SNOMED Code(s): 655301762 (4) Elevation of level of transaminase and lactic acid dehydrogenase (LDH) Current Visit: Yes Status: Acute Code(s): R74.0 - NONSPEC ELEV OF LEVELS OF TRANSAMNS & LACTIC ACID DEHYDRGNSE SNOMED Code(s): 064149574
[2018-03-01] MEDS: HYDROmorphone 1 MG/ML 1 ML SYRINGE IVP PRN ×4 (00:46→20:41)
[2018-03-01] MEDS: HEPARIN SODIUM,PORCINE 5,000 UNIT/ML 1 ML VIAL SQ SCH ×3 (00:46→16:23)
[2018-03-01] MEDS: LACTATED RINGERS 1,000 ML IV SCH ×4 (00:47→21:43)
[2018-03-01] MEDS: PIPERACILLIN-TAZOBACTAM 3.375 GM in DEXTROSE/WATER 1 50ML.BAG IVPB SCH ×3 (00:53→18:18)
[2018-03-01] MEDS: IBUPROFEN 600 MG TAB PO PRN ×2 (01:19→20:06)
[2018-03-01 02:27] LABS: Appearance,Urine Clear (Clear); Bilirubin,Urine Negative (Negative); Blood,Urine Negative (Negative); Color,Urine Light Yellow; Glucose,Urine (UA) Negative (Negative); Ketones,Urine Negative (Negative); Leukocyte Esterase,Urine Negative (Negative); Nitrite,Urine Negative (Negative); Protein,Urine Negative (Negative); Specific Gravity,Urine 1.004 (1.001-1.035); Urobilinogen,Urine <2.0 mg/dL (<2.0)
[2018-03-01] MEDS: NOREPINEPHRINE 4 MG in SODIUM CHLORIDE 0.9% 250 ML IV SCH ×2 (03:05→21:45)
[2018-03-01] MEDS: GABAPENTIN 300 MG CAP PO SCH ×5 (03:32→20:06)
[2018-03-01 05:11] LABS: Basophils # (A) 0.1 k/uL (0-0.2); Basophils % (A) 0 %; Eosinophils # (A) 0.1 k/uL (0-0.7); Eosinophils % (A) 0 %; HCT 32.9 % (34.0-46.0); Lymphocytes # (A) 1.5 k/uL (1.0-4.8); Lymphocytes % (A) 7 %; MCH 31.6 pg (25.0-35.0); MCHC 33.5 g/dL (31.0-37.0); MCV 94.1 fL (80.0-100.0); Mean Platelet Volume 7.4; Monocytes # (A) 0.8 k/uL (0-1.0); Monocytes % (A) 4 %; Neutrophils # (A) 17.2 k/uL (1.3-7.7); Neutrophils % (A) 87 %; Platelet Count 402 k/uL (150-450); WBC 19.7 k/uL (3.8-10.6)
[2018-03-01 05:21] LABS: ALT 91 U/L (9-52); AST 35 U/L (14-36); Albumin 2.7 g/dL (3.5-5.0); Alkaline Phosphatase 134 U/L (38-126); Amylase 35 U/L (30-110); Anion Gap 9 mmol/L; Blood Urea Nitrogen 6 mg/dL (7-17); Calcium 8.8 mg/dL (8.4-10.2); Carbon Dioxide 23 mmol/L (22-30); Chloride 111 mmol/L (98-107); Glucose 129 mg/dL (74-99); Lipase <10 U/L (23-300); Potassium 3.6 mmol/L (3.5-5.1); Sodium 143 mmol/L (137-145); Total Bilirubin 1.6 mg/dL (0.2-1.3); Total Protein 5.4 g/dL (6.3-8.2)
[2018-03-01] MEDS ORDERED: Potassium Replacement Protocol 1 EACH MISC MISCELLANE PRN (05:55)
[2018-03-01] MEDS ORDERED: POTASSIUM CHLORIDE ER 20 MEQ TAB.ER PO SCH (06:00)
[2018-03-01] MEDS: LEVOTHYROXINE 100 MCG TAB PO SCH (06:09)
[2018-03-01] MEDS: FOLIC ACID 1 MG TAB PO SCH (07:39)
[2018-03-01] MEDS: PANTOPRAZOLE 40 MG TABLET PO SCH (07:39)
[2018-03-01] MEDS: FAMOTIDINE 20 MG TAB PO SCH ×2 (07:39→20:06)
[2018-03-01] MEDS: PYRIDOXINE 50 MG TAB PO SCH (07:39)
[2018-03-01] MEDS: BACLOFEN 10 MG TAB PO SCH ×3 (07:40→21:42)
[2018-03-01] MEDS: OXYBUTYNIN CHLORIDE 5 MG TAB PO SCH ×3 (07:40→21:42)
--- NOTE | 2018-03-01 10:22 | P.PN ---
Progress Note - Text Progress Note Date: 03/01/18 The patient will undergo laparoscopic cholecystectomy today.
--- NOTE | 2018-03-01 10:22 | P.PN ---
Subjective Progress Note Date: 03/01/18 Patient is a 47 year old female who presented to [facility] emergency room the chief complaint of abdominal pain patient describes a severe pain in the epigastric area that started about 12 hours prior to presentation she was evaluated in the emergency room she had a computed tomography scan of the abdomen and pelvis and ultrasound of the abdomen off were suggestive of cholecystitis patient also had leukocytosis and low-grade fever he was started on IV antibiotic Zosyn and admitted to medical floor surgical consultation was requested. During this admission patient had low blood pressure and required IV fluid boluses. On 03/01/2018 patient is currently in the intensive care unit requiring Levophed for pressure support. Per nursing staff patient. Planning for laparoscopic cholecystectomy with Dr. Lopez today. Patient states she is still having severe upper abdominal pain. This time. Patient denies chest pain or shortness breath. Dr. Sexton Per critical care service is following closely. Dr. Light consulted for infectious disease. Objective - Vital Signs Vital signs: Vital Signs Temp 98.3 F 03/01/18 08:29 Pulse 74 03/01/18 09:30 Resp 12 03/01/18 09:30 BP 141/90 03/01/18 09:30 Pulse Ox 96 03/01/18 09:30 Intake & Output 02/28/18 03/01/18 03/01/18 18:59 06:59 18:59 Intake Total 2650 1937.438 497.688 Output Total 2500 4700 440 Balance 150 -2762.562 57.688 Weight 80.8 kg Intake: IV 300 1850 450 Lactated Ringers 1,000 ml 300 1800 450 @ 150 mls/hr IV .Q6H40M [facility] Rx#:[id number] Piperacillin-Tazobactam 3 50 .375 gm In Dextrose/Water 1 50ml.bag @ 12.5 mls/hr IVPB Q8H [facility] Rx#: [id number] Intake, IV Titration 2350 87.438 47.688 Amount Lactated Ringers 1,000 ml 300 @ 150 mls/hr IV .Q6H40M [facility] Rx#:[id number] Levofloxacin 500Mg-D5w 50 Pmx 500 mg In Dextrose/ Water 1 100ml.bag @ 100 mls/hr IVPB Q24H [facility] Rx#: [id number] Norepinephrine 4 mg In 87.438 47.688 Sodium Chloride 0.9% 250 ml @ Titrate IV .Q0M [facility] Rx#:[id number] Sodium Chloride 0.9% 2, 2000 000 ml @ 999 mls/hr IV . Q2H1M [facility] Rx#:[id number] Output: Urine 2500 4700 440 Other: Voiding Method Toilet Indwelling Catheter - Exam Head normocephalic Neck supple Lungs clear to auscultation bilaterally no wheezing or crackles Heart regular rate and rhythm S1-S2, no rub or gallop Abdomen is soft with tenderness in the epigastric and right upper quadrant area. Positive bowel sounds throughout. No hepato-splenomegaly Extremities no edema Neuro alert and orientated to 3 - Labs CBC & Chem 7: 03/01/18 04:26 03/01/18 04:26 Labs: Abnormal Lab Results - Last 24 Hours (Table) 02/28/18 03/01/18 03/01/18 Range/Units 11:25 04:26 04:26 WBC 19.7 H (3.8-10.6) k/uL RBC 3.50 L (3.80-5.40) m/uL Hgb 11.0 L (11.4-16.0) gm/dL Hct 32.9 L (34.0-46.0) % Neutrophils # 17.2 H (1.3-7.7) k/uL Chloride 111 H (98-107) mmol/L BUN 6 L (7-17) mg/dL Glucose 129 H (74-99) mg/dL POC Glucose (mg/dL) 136 H (75-99) mg/dL Total Bilirubin 1.6 H (0.2-1.3) mg/dL ALT 91 H (9-52) U/L Alkaline Phosphatase 134 H (38-126) U/L Total Protein 5.4 L (6.3-8.2) g/dL Albumin 2.7 L (3.5-5.0) g/dL Lipase <10 L (23-300) U/L Microbiology - Last 24 Hours (Table) 02/27/18 16:13 Blood Culture - Preliminary Blood No Growth after 24 hours Assessment and Plan Assessment: #1 acute cholecystitis with cholelithiasis. Plan for laparoscopic cholecystectomy today with Dr. Lopez. #[address]BC [address] Light per infectious disease consulted. Patient receiving Zosyn for antibiotic. #3 sepsis, with septic shock as evidenced by hypotension, leukocytosis, fever patient received multiple fluid boluses, with minimal improvement in her blood pressure she will be transferred to ICU critical care consult was requested. patient currently on Levophed for pressure support. Dr. Sexton per critical care following closely #4 possible urinary tract infection #5 underlying history of hypothyroidism #6 underlying history of gastroesophageal reflux disease #7. Elevated liver enzymes. GI consult has been placed for possible ERCP. Total bili decreasing to 1.6. AST 35, ALT 91 and alkaline phosphatase 34 #8. History of illicit drug use. Patient has history of cocaine and heroine abuse. #9. History of CVA/TIA #10. History of MRSA. Patient was positive for MRSA, no blood in December 2016 DVT prophylaxis heparin. GI prophylaxis Pepcid I performed an examination of the patient and discussed their management with the Nurse Practitioner. I have reviewed the Nurse Practitioner's notes and agree with the documented findings and plan of care
[2018-03-01] MEDS ORDERED: BUPIVACAINE-EPI 0.5%-1:200,000 10 ML VIAL SQ ONE (11:15)
[2018-03-01] MEDS ORDERED: fentaNYL (PF) 50 MCG/ML 2 ML AMP ONE (11:25)
[2018-03-01] MEDS ORDERED: NEOSTIGMINE 1 MG/ML 10 ML VIAL ONE (11:25)
[2018-03-01] MEDS ORDERED: PROPOFOL 10 MG/ML 20 ML VIAL IV ONE (11:25)
[2018-03-01] MEDS ORDERED: ROCURONIUM BROMIDE 10 MG/ML 10 ML VIAL IV ONE (11:25)
[2018-03-01] MEDS ORDERED: LIDOCAINE 1% INJ 10MG/ML (20 ML MDV) ONE (11:25)
[2018-03-01] MEDS ORDERED: SUCCINYLCHOLINE CHLORIDE 100 MG/5 ML SYR IV ONE (11:25)
[2018-03-01] MEDS ORDERED: SODIUM CHLORIDE 0.9% 1,000 ML IV ONE (11:25)
[2018-03-01] MEDS ORDERED: LACTATED RINGERS 1,000 ML IV ONE (11:35)
--- NOTE | 2018-03-01 12:28 | P.OP ---
Date of Procedure: 03/01/18 Preoperative Diagnosis: Acute cholecystitis Postoperative Diagnosis: He cholecystitis with. Purulent Cholecystitis Procedure(s) Performed: Laparoscopic cholecystectomy Anesthesia: MARIAH Surgeon: Tk Lopez Estimated Blood Loss (ml): 20 Pathology: other (Gallbladder) Condition: stable Disposition: PACU Description of Procedure: The patient was placed on the operating table. The patient received a general endotracheal tube anesthesia. The patients abdomen was prepped and draped in the usual sterile fashion. Through an infraumbilical stab incision, the fascia of the anterior abdominal wall was grasped with a pair of Kochers and then the Veress needle was placed in the peritoneal cavity. Position of the Veress needle was confirmed with positive drop test. The abdomen was then insufflated. After adequate insufflation, the 10 mm trocar was placed in the peritoneal cavity. Following this the laparoscope was placed in the peritoneal cavity. The patient was placed in the head-up, right side up position and then a 5 mm trocar was placed in the right lateral and right subcostal position under direct visualization. A 8 mm trocar was placed in the epigastric position. The omentum was covering the gallbladder. This was dissected free using blunt and sharp dissection and the Harmonic scissors. The gallbladder appeared to be quite inflamed. The gallbladder was grasped in the fundus and infundibulum. There was pus seen from the infundibulum the gallbladder grasping site. Traction on the gallbladder was placed in the lateral and the cephalad positions. The triangle of Calot was visualized.. The cystic duct was bluntly dissected until the union of the cystic duct and common bile duct was seen. The cystic duct was then ligated using 2-0 Ethibond tie and the timeout device. The cystic duct was then divided using the Harmonic scissors. The cystic artery was divided with the Harmonic scissors. ors. The gallbladder was then removed from the liver bed using Harmonic scissors. The gallbladder was then extracted through the epigastric port site. A BEBA drain is placed in the lateral fossa and brought out through the 5 mm trocar site. Operative field was checked for any bleeding spots and Harmonic scissors was used to coagulate the liver bed. The abdomen was irrigated. The trocars were removed. The skin was closed using interrupted 3-0 Vicryl suture. Dermabond dressing were applied. The patient tolerated the procedure well.
[2018-03-01] MEDS: HYDROmorphone 1 MG/ML 1 ML SYRINGE IVP ONE ×4 (12:39→12:57)
--- NOTE | 2018-03-01 12:52 | P.PN ---
Subjective Progress Note Date: 03/01/18 47-year-old female patient who presented yesterday to the emergency department with complaints of epigastric and right upper quadrant pain. The pain was quite extensive and it was 8 out of 10 in severity. She had an ultrasound the gallbladder and she was diagnosed having an acute cholecystitis. She was started on IV Zosyn. Overnight she was given 2 L of IV fluids and other 2 L was given this morning for some borderline hypotension and the systolic blood pressure in the mid 80s. The pain is still active for now and the patient's white cell count is at 16.1. On today's blood work, the AST is up to 110, ALC is up to 141 and the bilirubin is up to 1.9. The patient had a lactic acid level of 0.9. She is a bit nauseated. No emesis. She has a right upper quadrant pain. Afebrile for now. General surgeries on the case. Initial plan was to proceed with cholecystectomy him however with these abnormalities in the liver function test that think it's reasonable to get a consult with GI for possible ERCP. Possibilities are still cholecystitis with questionable signs of early cholangitis. She is on Dilaudid for pain control. She is on IV Zosyn. She has on IV fluids and the patient is receiving 125 mL an hour of normal saline. The CAT scan of the abdomen was done yesterday showed findings consistent with acalculous cholecystitis. There was hepatomegaly. A limited disease of the spleen. Degenerative changes of the spine. On 03/01/2018 the patient was seen preoperatively. The plan is to proceed with a cholecystectomy today. The patient's tenderness is less in the right upper quadrant. Nevertheless she is hypotensive. She was given approximately 8 L of IV fluids and she continued to be borderline hypotensive preserving urine output and preserving the renal function. Overnight I give the patient pressors and the patient is on few mics of levo fed for hemodynamic support. Her LFTs are still abnormal although improved compared to yesterday. The bilirubin is down to 1.6. AST is down to 35 and ALP is down to 91. The plan is proceed with a laparoscopic cholecystectomy today. She is afebrile. Pulse ox 90% on room air. No rest or distress. No altered mentation. Objective - Vital Signs Vital signs: Vital Signs Temp 97.4 F L 03/01/18 12:34 Pulse 96 03/01/18 12:34 Resp 16 03/01/18 12:34 BP 122/74 03/01/18 12:34 Pulse Ox 93 L 03/01/18 12:34 Intake & Output 02/28/18 03/01/18 03/01/18 18:59 06:59 18:59 Intake Total 2650 0469.878 6791.563 Output Total 2500 4700 585 Balance 150 -2762.562 1023.563 Weight 80.8 kg Intake: IV 300 1850 1550 Lactated Ringers 1,000 ml 300 1800 750 @ 150 mls/hr IV .Q6H40M [facility] Rx#:[id number] Piperacillin-Tazobactam 3 50 .375 gm In Dextrose/Water 1 50ml.bag @ 12.5 mls/hr IVPB Q8H [facility] Rx#: [id number] Intake, IV Titration 2350 87.438 58.563 Amount Lactated Ringers 1,000 ml 300 @ 150 mls/hr IV .Q6H40M [facility] Rx#:[id number] Levofloxacin 500Mg-D5w 50 Pmx 500 mg In Dextrose/ Water 1 100ml.bag @ 100 mls/hr IVPB Q24H [facility] Rx#: [id number] Norepinephrine 4 mg In 87.438 58.563 Sodium Chloride 0.9% 250 ml @ Titrate IV .Q0M [facility] Rx#:[id number] Sodium Chloride 0.9% 2, 2000 000 ml @ 999 mls/hr IV . Q2H1M [facility] Rx#:[id number] Output: Urine 2500 4700 545 Estimated Blood Loss 40 Other: Voiding Method Toilet Indwelling Catheter Indwelling Catheter - Exam Gen. appearance the patient a mild abdominal discomfort. Not using accessory muscles of breathing. Head exam was generally normal. There was no scleral icterus or corneal arcus. Mucous membranes were moist. Neck was supple and without jugular venous distension, thyromegaly, or carotid bruits. Carotids were easily palpable bilaterally. There was no adenopathy. Lungs were clear to auscultation and percussion, and with normal diaphragmatic excursion. No wheezes or rales were noted. Cardiac exam revealed the PMI to be normally situated and sized. The rhythm was regular and no extrasystoles were noted during several minutes of auscultation. The first and second heart sounds were normal and physiologic splitting of the second heart sound was noted. There were no murmurs, rubs, clicks, or gallops. Examination of the abdomen shows a right upper quadrant direct tenderness. No rebound tensile guarding. No ascites. Bowel sounds are hypoactive. Examination of the extremities revealed easily palpable radial, femoral and pedal pulses. There was no cyanosis, clubbing or edema. Examination of the skin revealed no evidence of significant rashes, suspicious appearing nevi or other concerning lesions. Neurologically the patient is awake and alert. She has chronic weakness in her lower extremity especially on the left related to a previous spinal stroke. Gait was not assessed at this point in time. Cranial nerves are intact. No focal neurological deficit and the cranial nerves. Pupils are equal reactive to light. - Labs CBC & Chem 7: 03/01/18 04:26 03/01/18 04:26 Labs: Abnormal Lab Results - Last 24 Hours (Table) 03/01/18 03/01/18 Range/Units 04:26 04:26 WBC 19.7 H (3.8-10.6) k/uL RBC 3.50 L (3.80-5.40) m/uL Hgb 11.0 L (11.4-16.0) gm/dL Hct 32.9 L (34.0-46.0) % Neutrophils # 17.2 H (1.3-7.7) k/uL Chloride 111 H (98-107) mmol/L BUN 6 L (7-17) mg/dL Glucose 129 H (74-99) mg/dL Total Bilirubin 1.6 H (0.2-1.3) mg/dL ALT 91 H (9-52) U/L Alkaline Phosphatase 134 H (38-126) U/L Total Protein 5.4 L (6.3-8.2) g/dL Albumin 2.7 L (3.5-5.0) g/dL Lipase <10 L (23-300) U/L Microbiology - Last 24 Hours (Table) 03/01/18 02:15 Urine Culture - Preliminary Urine,Catheterized 02/27/18 16:13 Blood Culture - Preliminary Blood No Growth after 24 hours Assessment and Plan Plan: Assessment 1 acute acalculus cholecystitis with possibly passing of a biliary stone. The patient is refining still operator in the right upper quadrant. Her AST and ALP and the bilirubin are declining and the patient be undergoing a laparoscopic cholecystectomy today. The patient is currently on IV Zosyn. 2 sepsis with secondary hypotension, likely secondary to acute cholecystitis. The patient was resuscitated aggressively with IV fluids. Currently on pressors on 30 mics of norepinephrine infusion for blood pressure support. 3 leukocytosis secondary to above 4 abdominal pain secondary to above essentially involving the right upper quadrant 5 hypothyroidism 6 history of spinal CVA Plan Continue IV fluids. Continue IV Zosyn. Proceed with a laparoscopic cholecystectomy, possibly open approach depending on the intraoperative findings. Continue pressors. Patient was moved back to the intensive care unit following her surgery.
[2018-03-01] MEDS: diphenhydrAMINE 50 MG/ML 1 ML VIAL IVP ONE ×2 (12:53→12:58)
--- NOTE | 2018-03-01 13:09 | P.CONS ---
History of Present Illness - Reason for Consult Consult date: 02/28/18 Possible choledocholithiasis. - History of Present Illness The patient is a 47 year old female who presented to [facility] emergency department with the chief complaint of abdominal pain. She described severe pain in the epigastric area that started about 12 hours prior to presentation with no other associated symptoms. No fever or jaundice. She was evaluated in the emergency room and had a CT scan of the abdomen and pelvis and ultrasound of the abdomen which were suggestive of cholecystitis. Patient also had leukocytosis and low-grade fever. She was started on IV antibiotic Zosyn and admitted to medical floor surgical consultation was requested. During this admission patient had low blood pressure and required IV fluid boluses and she had a rise in her liver enzymes with total bilirubin 1.9, AST 110 AST 141, phosphatase 167. These were all normal on admission. The patient was then asked transferred to the intensive care unit for early sepsis and we are asked to see her for possible common bile duct stone. Review of Systems Constitutional: Denies fever, chills or unintentional weight loss Neurologic: No headaches, double vision or other sensory or motor changes. History of CVA Cardiopulmonary: No chest pain, shortness of breath or palpitations Gastrointestinal: See present illness above Genitourinary: Denies hematuria, dysuria or frequency Endocrine: No history of diabetes, has thyroid disease Musculoskeletal: No joint swelling or pain Skin: No rashes Hematologic: No anemia or bleeding tendency Psychiatric: No anxiety or depression 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 Year Discovered:: 01/08/17 MDRO Source:: BLOOD Past Surgical History: Appendectomy, Tubal Ligation Additional Past Surgical History / Comment(s): neck fusion, carpal tunnel Past Anesthesia/Blood Transfusion Reactions: No Reported Reaction, Unable to Obtain Past Psychological History: No Psychological Hx Reported Smoking Status: Current every day smoker Past Alcohol Use History: Occasional Past Drug Use History: None Reported - Past Family History Father History Unknown: Yes Family Medical History: Unable to Obtain Mother History Unknown: Yes Family Medical History: Unable to Obtain Medications and Allergies Home Medications Medication Instructions Recorded Confirmed Type Loratadine [Claritin] 10 mg PO DAILY 02/01/17 02/27/18 History Omeprazole [PriLOSEC] 40 mg PO DAILY 02/01/17 02/27/18 History Baclofen [Lioresal] 20 mg PO TID 11/04/17 02/27/18 History Folic Acid 0.4 mg PO DAILY 11/04/17 02/27/18 History Gabapentin [Neurontin] 600 mg PO Q4H 11/04/17 02/27/18 History Levothyroxine Sodium [Synthroid] 100 mcg PO DAILY 11/04/17 02/27/18 History Oxybutynin Chloride [Ditropan] 5 mg PO TID 11/04/17 02/27/18 History Naproxen 500 mg PO Q8H PRN 12/17/17 02/27/18 History Pyridoxine [Vitamin B-6] 50 mg PO DAILY 12/17/17 02/27/18 History Flaxseed Oil [Blanchard-3 Flaxseed Oil] 1,000 mg PO DAILY 02/27/18 02/27/18 History Liothyronine Sodium [Cytomel] 5 mcg PO BID 02/27/18 02/27/18 History Magnesium Oxide 400 mg PO DAILY 02/27/18 02/27/18 History Allergies Allergy/AdvReac Type Severity Reaction Status Date / Time acetaminophen Allergy Rash/Hives Verified 02/27/18 11:28 aspirin Allergy Rash/Hives Verified 02/27/18 11:28 Milk Containing Products AdvReac Nausea & Verified 02/27/18 11:28 Vomiting Physical Exam Vitals: Vital Signs Temp Pulse Pulse Pulse Resp BP BP 02/28/18 13:40 98 20 95/64 02/28/18 13:30 89 20 95/64 02/28/18 13:20 55 L 18 104/80 02/28/18 13:10 90 22 91/60 02/28/18 13:00 106 H 27 H 91/60 02/28/18 12:50 91 20 80/61 02/28/18 12:40 90 21 88/57 02/28/18 12:30 86 22 88/57 02/28/18 12:20 80 20 91/55 02/28/18 12:10 86 23 90/48 02/28/18 12:00 85 24 90/48 02/28/18 11:50 81 24 92/53 02/28/18 11:44 85 26 H 92/53 02/28/18 09:59 100.8 F H 87 02/28/18 08:00 100.1 F H 94 18 02/28/18 07:54 18 02/28/18 03:38 18 02/28/18 03:36 99.3 F 100 18 87/51 02/28/18 01:34 92/52 02/28/18 00:00 99.6 F 96 18 88/53 02/27/18 20:00 101.3 F H 108 H 18 116/58 02/27/18 16:00 99.6 F 94 16 86/52 BP Pulse Ox 02/28/18 13:40 96 02/28/18 13:30 96 02/28/18 13:20 95 02/28/18 13:10 96 02/28/18 13:00 98 02/28/18 12:50 97 02/28/18 12:40 97 02/28/18 12:30 98 02/28/18 12:20 95 02/28/18 12:10 98 02/28/18 12:00 97 02/28/18 11:50 98 02/28/18 11:44 95 02/28/18 09:59 91/58 02/28/18 08:00 83/55 95 02/28/18 07:54 02/28/18 03:38 02/28/18 03:36 96 02/28/18 01:34 02/28/18 00:00 98 02/27/18 20:00 97 02/27/18 16:00 98 Intake and Output 02/27/18 02/28/18 02/28/18 22:59 06:59 14:59 Intake Total 2000 Output Total 750 Balance 1250 Intake: Intake, IV Titration 2000 Amount Sodium Chloride 0.9% 2, 2000 000 ml @ 999 mls/hr IV . Q2H1M [facility] Rx#:[id number] Output: Urine 750 Other: Voiding Method Toilet Toilet Toilet General: Appeared stated age, very pleasant in no acute distress Head and neck: Normocephalic and atraumatic, conjunctivae pink and sclerae not icteric. Mucous membranes moist and pink. No masses in the neck or tracheal shift Lungs: Clear to auscultation with no dullness to percussion Heart: Regular, no abnormal sounds, murmurs, gallops or friction rubs Abdomen: Soft, no masses or organomegalies. Minimal tenderness in epigastric area, no guarding or rebound. Bowel sounds present Extremities: No clubbing, cyanosis or edema Neurologic: Alert and oriented 3, cranial nerves grossly intact, no gross sensory or motor abnormalities Results CBC & Chem 7: 03/01/18 04:26 03/01/18 04:26 Labs: Abnormal Lab Results - Last 24 Hours (Table) 02/28/18 02/28/18 02/28/18 Range/Units 07:07 07:07 11:25 WBC 16.1 H (3.8-10.6) k/uL RBC 3.51 L (3.80-5.40) m/uL Hgb 11.0 L (11.4-16.0) gm/dL Hct 33.2 L (34.0-46.0) % Neutrophils # 13.3 H (1.3-7.7) k/uL Monocytes # 1.1 H (0-1.0) k/uL Glucose 112 H (74-99) mg/dL POC Glucose (mg/dL) 136 H (75-99) mg/dL Total Bilirubin 1.9 H (0.2-1.3) mg/dL AST 110 H (14-36) U/L ALT 141 H (9-52) U/L Alkaline Phosphatase 167 H (38-126) U/L Total Protein 5.8 L (6.3-8.2) g/dL Albumin 3.0 L (3.5-5.0) g/dL Assessment and Plan Assessment: 47-year-old female with a presentation consistent with acute cholecystitis and cholelithiasis. With the elevation in her enzymes, the possibility of common bile duct stone should be considered. The patient is already feeding improve and her blood pressure is stabilizing with a small dose of pressors. Plan: Agree with your current management. The patient tolerated the is on antibiotics and tolerating liquid diet. Based on her course in the next 12-24 hours, and based on the repeat liver profile tomorrow morning, I would consider ERCP or the patient could go for cholecystectomy based on these parameters. I will discuss with you and follow with you with interest.
[2018-03-01] MEDS: MORPHINE SULFATE 4 MG/ML SYRINGE IV PRN (14:25)
[2018-03-01] MEDS ORDERED: LORazepam 2 MG/ML INJ IV PRN (18:03)
--- NOTE | 2018-03-01 22:29 | P.PN ---
Subjective Progress Note Date: 03/01/18 47-year-old female presents to emergency center with a several-day history of severe abdominal pain. She relates that the pain was epigastric in nature and despite multiple events to make it better such as soda bicarbonate water and antiacids she continue to feel poorly. She had nausea post-emesis she had no hematemesis. She had fever with chills and the pain continued to be severe 8 out of 10 in counseling presented to the emergency center. Imaging study with CAT scan was performed with concerns to acalculus cholecystitis however ultrasound reveals evidence of cholelithiasis and cholecystitis. She's been seen by surgery however there is evidence of significant change of her status in that she became more septic and had evidence of a marked increase of her total bilirubin and transaminases. As we concerned to obstructing stone and consult with gastroenterology has been placed. After their evaluation and possible ERCP, the patient will then have a laparoscopic cholecystectomy. At the moment she is feeling somewhat better she's having a clear liquid diet and is not having nausea or emesis and her pain is under much better control. She believes her fever and chills have improved although 101.3 fever earlier. 03/01/2018 reveals the patient to now be somewhat improved. She's been taking to the operating room and the laparoscopic cholecystectomy has occurred. Her pain is under modestly good control She has no other acute complaints at this time. She has mildly hypotensive after the procedure and is on a small amount of vasopressor. Objective - Vital Signs Vital signs: Vital Signs Temp 100.6 F H 03/01/18 21:45 Pulse 97 03/01/18 22:00 Resp 16 03/01/18 22:00 BP 86/48 03/01/18 22:00 Pulse Ox 96 03/01/18 22:00 Intake & Output 03/01/18 03/01/18 03/02/18 06:59 18:59 06:59 Intake Total 7855.801 0601.062 623.0 Output Total 4700 1630 385 Balance -2762.562 2045.062 238.0 Weight 80.8 kg Intake: IV 1850 2312.5 612.5 Lactated Ringers 1,000 ml 1800 1500 600 @ 150 mls/hr IV .Q6H40M [facility] Rx#:[id number] Piperacillin-Tazobactam 3 50 12.5 12.5 .375 gm In Dextrose/Water 1 50ml.bag @ 12.5 mls/hr IVPB Q8H [facility] Rx#: [id number] Intake, IV Titration 87.438 162.562 10.5 Amount Norepinephrine 4 mg In 87.438 162.562 10.5 Sodium Chloride 0.9% 250 ml @ Titrate IV .Q0M [facility] Rx#:[id number] Oral 1200 Output: Drainage 30 50 Anterior Abdomen 30 50 Urine 4700 1560 335 Estimated Blood Loss 40 Other: Voiding Method Indwelling Catheter Indwelling Catheter Indwelling Catheter - Exam Pleasant 47-year-old female who appears older than her stated age, is much more comfortable than noted at admission HEENT: Anicteric conjunctiva are pink and moist nasal mucosa grossly intact without significant lesions, there is no thrush. Neck: The neck is supple without significant lymphadenopathy or thyromegaly. Lungs: Good bilateral air entry without significant crackles or wheezing. There is no significant bronchial sounds. There is no egophony or dullness. Heart: Regular rate and rhythm with an audible S1-S2, no S3 no S4. There is no significant murmur click or rub, PMI was nondisplaced. Abdomen: Few bowel sounds are noted, the patient is status post laparoscopic procedure and there is some diffuse tenderness The abdomen is not rigid. She has no flank tenderness. There is no bruising to the abdominal wall. Extremities: The upper extremities have excellent pulses they are symmetric, no significant petechiae or telangiectasia. No splinter hemorrhages were noted. The lower extremities are free from significant edema. The peripheral pulses were 2+ and symmetric. Neuro: Awake alert oriented to person place and time. There are no acute new gross focal sensory motor deficits. - Labs CBC & Chem 7: 03/01/18 04:26 03/01/18 04:26 Labs: Abnormal Lab Results - Last 24 Hours (Table) 03/01/18 03/01/18 Range/Units 04:26 04:26 WBC 19.7 H (3.8-10.6) k/uL RBC 3.50 L (3.80-5.40) m/uL Hgb 11.0 L (11.4-16.0) gm/dL Hct 32.9 L (34.0-46.0) % Neutrophils # 17.2 H (1.3-7.7) k/uL Chloride 111 H (98-107) mmol/L BUN 6 L (7-17) mg/dL Glucose 129 H (74-99) mg/dL Total Bilirubin 1.6 H (0.2-1.3) mg/dL ALT 91 H (9-52) U/L Alkaline Phosphatase 134 H (38-126) U/L Total Protein 5.4 L (6.3-8.2) g/dL Albumin 2.7 L (3.5-5.0) g/dL Lipase <10 L (23-300) U/L Microbiology - Last 24 Hours (Table) 02/27/18 16:13 Blood Culture - Preliminary Blood No Growth after 48 hours 03/01/18 02:15 Urine Culture - Preliminary Urine,Catheterized Laboratory Results WBC 19.7 k/uL (3.8-10.6) H 03/01/18 04:26 RBC 3.50 m/uL (3.80-5.40) L 03/01/18 04:26 Hgb 11.0 gm/dL (11.4-16.0) L 03/01/18 04:26 Hct 32.9 % (34.0-46.0) L 03/01/18 04:26 MCV 94.1 fL (80.0-100.0) 03/01/18 04:26 MCH 31.6 pg (25.0-35.0) 03/01/18 04:26 MCHC 33.5 g/dL (31.0-37.0) 03/01/18 04:26 RDW 13.0 % (11.5-15.5) 03/01/18 04:26 Plt Count 402 k/uL (150-450) 03/01/18 04:26 Neutrophils % 87 % 03/01/18 04:26 Lymphocytes % 7 % 03/01/18 04:26 Monocytes % 4 % 03/01/18 04:26 Eosinophils % 0 % 03/01/18 04:26 Basophils % 0 % 03/01/18 04:26 Neutrophils # 17.2 k/uL (1.3-7.7) H 03/01/18 04:26 Lymphocytes # 1.5 k/uL (1.0-4.8) 03/01/18 04:26 Monocytes # 0.8 k/uL (0-1.0) 03/01/18 04:26 Eosinophils # 0.1 k/uL (0-0.7) 03/01/18 04:26 Basophils # 0.1 k/uL (0-0.2) 03/01/18 04:26 Sodium 143 mmol/L (137-145) 03/01/18 04:26 Potassium 3.6 mmol/L (3.5-5.1) 03/01/18 04:26 Chloride 111 mmol/L (98-107) H 03/01/18 04:26 Carbon Dioxide 23 mmol/L (22-30) 03/01/18 04:26 Anion Gap 9 mmol/L 03/01/18 04:26 BUN 6 mg/dL (7-17) L 03/01/18 04:26 Creatinine 0.84 mg/dL (0.52-1.04) 03/01/18 04:26 Est GFR (CKD-EPI)AfAm >90 (>60 ml/min/1.73 sqM) 03/01/18 04:26 Est GFR (CKD-EPI)NonAf 82 (>60 ml/min/1.73 sqM) 03/01/18 04:26 Glucose 129 mg/dL (74-99) H 03/01/18 04:26 POC Glucose (mg/dL) 136 mg/dL (75-99) H 02/28/18 11:25 POC Glu Winding Rack Operator ID Eugenia Muhammad 02/28/18 11:25 Plasma Lactic Acid Benito 0.8 mmol/L (0.7-2.0) 03/01/18 02:45 Calcium 8.8 mg/dL (8.4-10.2) 03/01/18 04:26 Total Bilirubin 1.6 mg/dL (0.2-1.3) H 03/01/18 04:26 AST 35 U/L (14-36) 03/01/18 04:26 ALT 91 U/L (9-52) H 03/01/18 04:26 Alkaline Phosphatase 134 U/L (38-126) H 03/01/18 04:26 Total Protein 5.4 g/dL (6.3-8.2) L 03/01/18 04:26 Albumin 2.7 g/dL (3.5-5.0) L 03/01/18 04:26 Amylase 35 U/L (30-110) 03/01/18 04:26 Lipase <10 U/L (23-300) L 03/01/18 04:26 Cortisol 11 ug/dL 03/01/18 04:26 Urine Color Light Yellow 03/01/18 02:15 Urine Appearance Clear (Clear) 03/01/18 02:15 Urine pH 7.0 (5.0-8.0) 03/01/18 02:15 Ur Specific Whiting 1.004 (1.001-1.035) 03/01/18 02:15 Urine Protein Negative (Negative) 03/01/18 02:15 Urine Glucose (UA) Negative (Negative) 03/01/18 02:15 Urine Ketones Negative (Negative) 03/01/18 02:15 Urine Blood Negative (Negative) 03/01/18 02:15 Urine Nitrite Negative (Negative) 03/01/18 02:15 Urine Bilirubin Negative (Negative) 03/01/18 02:15 Urine Urobilinogen <2.0 mg/dL (<2.0) 03/01/18 02:15 Ur Leukocyte Esterase Negative (Negative) 03/01/18 02:15 Urine WBC 10 /hpf (0-5) H 02/27/18 02:04 Ur Squamous Epith Cells 1 /hpf (0-4) 02/27/18 02:04 Urine Bacteria Moderate /hpf (None) H 02/27/18 02:04 Urine Mucus Rare /hpf (None) H 02/27/18 02:04 Urine HCG, Qual Not Detected (Not Detectd) 02/27/18 02:04 Microbiology 02/27/18 16:13 Blood Blood Culture - Preliminary No Growth after 48 hours 03/01/18 02:15 Urine,Catheterized Urine Culture - Preliminary Assessment and Plan (1) Sepsis Narrative/Plan: 47-year-old female presents to Hospital with a 2 day history of increasing abdominal pain that became so severe that she came by EMS. At presentation pain level as a 10 out of 10 and was found evidence of cholelithiasis and acute cholecystitis. The patient had hypotension and is responding to fluid challenge at this point in time. She has been seen by general surgery and with the elevation of her total bilirubin and AST and ALT a gastroenterology consult has been requested for evaluation of the bile duct before a laparoscopic cholecystectomy will be performed. She fortunately is feeling somewhat better at the moment and is able to ingest some clear fluids. Leukocytosis is from the sepsis from her cholecystitis. Antibiotic therapy with piperacillin tazobactam is adequate and levofloxacin was discontinued. She was monitored in the postoperative time frame and antimicrobial therapy at the time of discharge will be evaluated. 03/01/2018 reveals the patient to be somewhat improved now that she has had the laproscopic cholecystectomy, her fevers improved but still has a significant leukocytosis. Leukocytosis due to the significant Colace cystitis and sepsis. Continue antibiotic therapy and supportive care. Current Visit: Yes Status: Acute Code(s): A41.9 - SEPSIS, UNSPECIFIED ORGANISM SNOMED Code(s): 59520950 (2) Cholecystitis with cholelithiasis Current Visit: Yes Status: Acute Code(s): K80.10 - CALCULUS OF GALLBLADDER W CHRONIC CHOLECYST W/O OBSTRUCTION SNOMED Code(s): 119870664 (3) Elevated bilirubin Current Visit: Yes Status: Acute Code(s): R17 - UNSPECIFIED JAUNDICE SNOMED Code(s): 856341027 (4) Elevation of level of transaminase and lactic acid dehydrogenase (LDH) Current Visit: Yes Status: Acute Code(s): R74.0 - NONSPEC ELEV OF LEVELS OF TRANSAMNS & LACTIC ACID DEHYDRGNSE SNOMED Code(s): 944445839
[2018-03-02] MEDS: HYDROmorphone 1 MG/ML 1 ML SYRINGE IVP PRN ×6 (00:17→21:15)
[2018-03-02] MEDS: GABAPENTIN 300 MG CAP PO SCH ×7 (00:17→21:15)
[2018-03-02] MEDS: HEPARIN SODIUM,PORCINE 5,000 UNIT/ML 1 ML VIAL SQ SCH ×3 (00:18→15:00)
[2018-03-02] MEDS: PIPERACILLIN-TAZOBACTAM 3.375 GM in DEXTROSE/WATER 1 50ML.BAG IVPB SCH ×3 (02:06→17:18)
[2018-03-02] MEDS: LACTATED RINGERS 1,000 ML IV SCH ×4 (02:11→22:02)
[2018-03-02 05:25] LABS: Basophils % (A) 0 %; Eosinophils # (A) 0.1 k/uL (0-0.7); Eosinophils % (A) 0 %; HCT 33.7 % (34.0-46.0); HGB 11.1 gm/dL (11.4-16.0); Lymphocytes # (A) 0.9 k/uL (1.0-4.8); Lymphocytes % (A) 6 %; MCH 31.2 pg (25.0-35.0); MCHC 32.9 g/dL (31.0-37.0); MCV 94.8 fL (80.0-100.0); Mean Platelet Volume 6.8; Monocytes # (A) 0.6 k/uL (0-1.0); Monocytes % (A) 4 %; Neutrophils # (A) 12.9 k/uL (1.3-7.7); Neutrophils % (A) 88 %; Platelet Count 440 k/uL (150-450); RBC 3.56 m/uL (3.80-5.40); RDW 13.1 % (11.5-15.5); WBC 14.6 k/uL (3.8-10.6)
[2018-03-02 05:38] LABS: ALT 78 U/L (9-52); AST 40 U/L (14-36); Albumin 2.5 g/dL (3.5-5.0); Alkaline Phosphatase 147 U/L (38-126); Anion Gap 5 mmol/L; Blood Urea Nitrogen 6 mg/dL (7-17); Calcium 8.1 mg/dL (8.4-10.2); Carbon Dioxide 26 mmol/L (22-30); Chloride 108 mmol/L (98-107); Glucose 135 mg/dL (74-99); Potassium 3.6 mmol/L (3.5-5.1); Sodium 139 mmol/L (137-145); Total Bilirubin 1.6 mg/dL (0.2-1.3); Total Protein 5.2 g/dL (6.3-8.2)
[2018-03-02] MEDS: NOREPINEPHRINE 4 MG in SODIUM CHLORIDE 0.9% 250 ML IV SCH ×2 (05:40→15:29)
[2018-03-02] MEDS: LEVOTHYROXINE 100 MCG TAB PO SCH (06:18)
[2018-03-02] MEDS ORDERED: POTASSIUM CHLORIDE ER 20 MEQ TAB.ER PO SCH ×2 (07:00→11:00)
[2018-03-02] MEDS: PYRIDOXINE 50 MG TAB PO SCH (08:37)
[2018-03-02] MEDS: BACLOFEN 10 MG TAB PO SCH ×3 (08:37→21:15)
[2018-03-02] MEDS: OXYBUTYNIN CHLORIDE 5 MG TAB PO SCH ×3 (08:37→21:15)
[2018-03-02] MEDS: FOLIC ACID 1 MG TAB PO SCH (08:37)
[2018-03-02] MEDS: MORPHINE SULFATE 4 MG/ML SYRINGE IV PRN (08:40)
[2018-03-02] MEDS: PANTOPRAZOLE 40 MG TABLET PO SCH (08:59)
[2018-03-02 10:34] LABS: Magnesium 1.6 mg/dL (1.6-2.3); Phosphorus 2.9 mg/dL (2.5-4.5); Potassium 3.6 mmol/L (3.5-5.1)
[2018-03-02] MEDS ORDERED: Magnesium Replacement Protocol 1 EACH MISC MISCELLANE PRN (10:39)
--- NOTE | 2018-03-02 10:52 | P.PN ---
Subjective Progress Note Date: 03/02/18 Patient is a 47 year old female who presented to [facility] emergency room the chief complaint of abdominal pain patient describes a severe pain in the epigastric area that started about 12 hours prior to presentation she was evaluated in the emergency room she had a computed tomography scan of the abdomen and pelvis and ultrasound of the abdomen off were suggestive of cholecystitis patient also had leukocytosis and low-grade fever he was started on IV antibiotic Zosyn and admitted to medical floor surgical consultation was requested. During this admission patient had low blood pressure and required IV fluid boluses. On 03/01/2018 patient is currently in the intensive care unit requiring Levophed for pressure support. Per nursing staff patient. Planning for laparoscopic cholecystectomy with Dr. Lopez today. Patient states she is still having severe upper abdominal pain. This time. Patient denies chest pain or shortness breath. Dr. Sexton Per critical care service is following closely. Dr. Light consulted for infectious disease. On 03/02/2018 patient remains in the intensive care unit on levophed for pressure support. Patient is currently alert and oriented 3. Patient status post laparoscopic cholecystectomy with Dr. Lopez yesterday. At this time patient denies chest pain or shortness breath.. Denies any urinary burning or frequency Objective - Vital Signs Vital signs: Vital Signs Temp 99.2 F 03/02/18 08:00 Pulse 92 03/02/18 10:00 Resp 21 03/02/18 10:00 BP 87/62 03/02/18 10:00 Pulse Ox 92 L 03/02/18 10:00 Intake & Output 03/01/18 03/02/18 03/02/18 18:59 06:59 18:59 Intake Total 3675.062 2147.75 920.75 Output Total 1630 1510 1030 Balance 2045.062 637.75 -109.25 Weight 86.1 kg Intake: IV 2312.5 1862.5 600 Lactated Ringers 1,000 ml 1500 1800 600 @ 150 mls/hr IV .Q6H40M [facility] Rx#:[id number] Piperacillin-Tazobactam 3 12.5 62.5 .375 gm In Dextrose/Water 1 50ml.bag @ 12.5 mls/hr IVPB Q8H [facility] Rx#: [id number] Intake, IV Titration 162.562 285.25 80.75 Amount Norepinephrine 4 mg In 162.562 285.25 80.75 Sodium Chloride 0.9% 250 ml @ Titrate IV .Q0M [facility] Rx#:[id number] Oral 1200 240 Output: Drainage 30 100 30 Anterior Abdomen 30 100 30 Urine 1560 1410 1000 Estimated Blood Loss 40 Other: Voiding Method Indwelling Catheter Indwelling Catheter - Exam Head normocephalic Neck supple Lungs clear to auscultation bilaterally no wheezing or crackles Heart regular rate and rhythm S1-S2, no rub or gallop Abdomen is soft with tenderness in the epigastric and right upper quadrant area. Positive bowel sounds throughout. No hepato-splenomegaly. Surgical dressing clean dry and intact. BEBA in place right upper quadrant Extremities no edema Neuro alert and orientated to 3 - Labs CBC & Chem 7: 03/02/18 05:02 03/02/18 09:40 Labs: Abnormal Lab Results - Last 24 Hours (Table) 03/02/18 03/02/18 Range/Units 05:02 05:02 WBC 14.6 H (3.8-10.6) k/uL RBC 3.56 L (3.80-5.40) m/uL Hgb 11.1 L (11.4-16.0) gm/dL Hct 33.7 L (34.0-46.0) % Neutrophils # 12.9 H (1.3-7.7) k/uL Lymphocytes # 0.9 L (1.0-4.8) k/uL Chloride 108 H (98-107) mmol/L BUN 6 L (7-17) mg/dL Glucose 135 H (74-99) mg/dL Calcium 8.1 L (8.4-10.2) mg/dL Total Bilirubin 1.6 H (0.2-1.3) mg/dL AST 40 H (14-36) U/L ALT 78 H (9-52) U/L Alkaline Phosphatase 147 H (38-126) U/L Total Protein 5.2 L (6.3-8.2) g/dL Albumin 2.5 L (3.5-5.0) g/dL Microbiology - Last 24 Hours (Table) 02/27/18 16:13 Blood Culture - Preliminary Blood No Growth after 48 hours 09/10/18 02:15 Urine Culture - Preliminary Urine,Catheterized Assessment and Plan Assessment: #1 acute cholecystitis with cholelithiasis. Patient is postop day 1 status post Laprascopic cholecystectomy with Dr. Lopez. Postoperative Diagnosis of Purulent Cholecystitis. #[address] Light per infectious disease consulted. Patient receiving Zosyn for antibiotic. White blood cell improving to 14.6 #3 sepsis, with septic shock as evidenced by hypotension, leukocytosis, fever patient received multiple fluid boluses, with minimal improvement in her blood pressure she will be transferred to ICU critical care consult was requested. patient currently on Levophed for pressure support. Dr. Sexton per critical care following closely #4 possible urinary tract infection #5 underlying history of hypothyroidism #6 underlying history of gastroesophageal reflux disease #7. Elevated liver enzymes. GI consult has been placed for possible ERCP. Total bili decreasing to 1.6. AST 35, ALT 91 and alkaline phosphatase 34 #8. History of illicit drug use. Patient has history of cocaine and heroine abuse. #9. History of CVA/TIA #10. History of MRSA. Patient was positive for MRSA, no blood in December 2016 DVT prophylaxis heparin. GI prophylaxis Pepcid I performed an examination of the patient and discussed their management with the Nurse Practitioner. I have reviewed the Nurse Practitioner's notes and agree with the documented findings and plan of care
[2018-03-02] MEDS: MAGNESIUM SULFATE-D5W PMX 1 GM in DEXTROSE/WATER 1 100ML.BAG IVPB SCH ×2 (10:58→12:05)
--- NOTE | 2018-03-02 12:16 | P.PN ---
Subjective Progress Note Date: 03/02/18 47-year-old female patient who presented yesterday to the emergency department with complaints of epigastric and right upper quadrant pain. The pain was quite extensive and it was 8 out of 10 in severity. She had an ultrasound the gallbladder and she was diagnosed having an acute cholecystitis. She was started on IV Zosyn. Overnight she was given 2 L of IV fluids and other 2 L was given this morning for some borderline hypotension and the systolic blood pressure in the mid 80s. The pain is still active for now and the patient's white cell count is at 16.1. On today's blood work, the AST is up to 110, ALC is up to 141 and the bilirubin is up to 1.9. The patient had a lactic acid level of 0.9. She is a bit nauseated. No emesis. She has a right upper quadrant pain. Afebrile for now. General surgeries on the case. Initial plan was to proceed with cholecystectomy him however with these abnormalities in the liver function test that think it's reasonable to get a consult with GI for possible ERCP. Possibilities are still cholecystitis with questionable signs of early cholangitis. She is on Dilaudid for pain control. She is on IV Zosyn. She has on IV fluids and the patient is receiving 125 mL an hour of normal saline. The CAT scan of the abdomen was done yesterday showed findings consistent with acalculous cholecystitis. There was hepatomegaly. A limited disease of the spleen. Degenerative changes of the spine. On 03/01/2018 the patient was seen preoperatively. The plan is to proceed with a cholecystectomy today. The patient's tenderness is less in the right upper quadrant. Nevertheless she is hypotensive. She was given approximately 8 L of IV fluids and she continued to be borderline hypotensive preserving urine output and preserving the renal function. Overnight I give the patient pressors and the patient is on few mics of levo fed for hemodynamic support. Her LFTs are still abnormal although improved compared to yesterday. The bilirubin is down to 1.6. AST is down to 35 and ALP is down to 91. The plan is proceed with a laparoscopic cholecystectomy today. She is afebrile. Pulse ox 90% on room air. No rest or distress. No altered mentation. 03/02/2018 the patient is postop day #1 following a laparoscopic cholecystectomy. The patient was found to have a suppurative cholecystitis and the patient underwent lap phillip and the BEBA drain was inserted. The patient is being seen in follow-up H is awake and alert. Her pain is less compared to yesterday. BEBA drain output has been 130 mL since arrival from the operating room. She was given IV fluids and she remains on lactated Ringer 150 mL an hour. She is still requiring pressors and norepinephrine infusion rate has been ranging and currently she is on 5 mics. The white cell count is dropping down to 14.6. She had some abdominal distention which is improved on today's evaluation. She is not passing flatus yet. She is taking some clear liquid diet. No chills. No fever. Remains on IV Zosyn. No altered mentation. Pain control is with Dilaudid 1 mg every 3 hours on a when necessary basis. Objective - Vital Signs Vital signs: Vital Signs Temp 98.5 F 03/02/18 10:00 Pulse 95 03/02/18 11:00 Resp 38 H 03/02/18 11:00 BP 102/54 03/02/18 11:00 Pulse Ox 95 03/02/18 11:00 Intake & Output 03/01/18 03/02/18 03/02/18 18:59 06:59 18:59 Intake Total 3675.062 2147.75 1827.688 Output Total 1630 1510 1355 Balance 2045.062 637.75 472.688 Weight 86.1 kg Intake: IV 2312.5 1862.5 750 Lactated Ringers 1,000 ml 1500 1800 750 @ 150 mls/hr IV .Q6H40M [facility] Rx#:[id number] Piperacillin-Tazobactam 3 12.5 62.5 .375 gm In Dextrose/Water 1 50ml.bag @ 12.5 mls/hr IVPB Q8H [facility] Rx#: [id number] Intake, IV Titration 162.562 285.25 157.688 Amount Norepinephrine 4 mg In 162.562 285.25 145.188 Sodium Chloride 0.9% 250 ml @ Titrate IV .Q0M [facility] Rx#:[id number] Piperacillin-Tazobactam 3 12.5 .375 gm In Dextrose/Water 1 50ml.bag @ 12.5 mls/hr IVPB Q8H [facility] Rx#: [id number] Oral 1200 920 Output: Drainage 30 100 30 Anterior Abdomen 30 100 30 Urine 1560 1410 1325 Estimated Blood Loss 40 Other: Voiding Method Indwelling Catheter Indwelling Catheter - Exam Gen. appearance the patient a mild abdominal discomfort. Not using accessory muscles of breathing. Head exam was generally normal. There was no scleral icterus or corneal arcus. Mucous membranes were moist. Neck was supple and without jugular venous distension, thyromegaly, or carotid bruits. Carotids were easily palpable bilaterally. There was no adenopathy. Lungs were clear to auscultation and percussion, and with normal diaphragmatic excursion. No wheezes or rales were noted. Cardiac exam revealed the PMI to be normally situated and sized. The rhythm was regular and no extrasystoles were noted during several minutes of auscultation. The first and second heart sounds were normal and physiologic splitting of the second heart sound was noted. There were no murmurs, rubs, clicks, or gallops. Examination of the abdomen shows a minimal tenderness in the right upper quadrant area. Surgical wound site is clean. BEBA drains in place. No ascites. No rebound tenderness. No guarding. Hypoactive bowel sounds are present. Examination of the extremities revealed easily palpable radial, femoral and pedal pulses. There was no cyanosis, clubbing or edema. Examination of the skin revealed no evidence of significant rashes, suspicious appearing nevi or other concerning lesions. Neurologically the patient is awake and alert. She has chronic weakness in her lower extremity especially on the left related to a previous spinal stroke. Gait was not assessed at this point in time. Cranial nerves are intact. No focal neurological deficit and the cranial nerves. Pupils are equal reactive to light. - Labs CBC & Chem 7: 03/02/18 05:02 03/02/18 09:40 Labs: Abnormal Lab Results - Last 24 Hours (Table) 03/02/18 03/02/18 Range/Units 05:02 05:02 WBC 14.6 H (3.8-10.6) k/uL RBC 3.56 L (3.80-5.40) m/uL Hgb 11.1 L (11.4-16.0) gm/dL Hct 33.7 L (34.0-46.0) % Neutrophils # 12.9 H (1.3-7.7) k/uL Lymphocytes # 0.9 L (1.0-4.8) k/uL Chloride 108 H (98-107) mmol/L BUN 6 L (7-17) mg/dL Glucose 135 H (74-99) mg/dL Calcium 8.1 L (8.4-10.2) mg/dL Total Bilirubin 1.6 H (0.2-1.3) mg/dL AST 40 H (14-36) U/L ALT 78 H (9-52) U/L Alkaline Phosphatase 147 H (38-126) U/L Total Protein 5.2 L (6.3-8.2) g/dL Albumin 2.5 L (3.5-5.0) g/dL Microbiology - Last 24 Hours (Table) 03/01/18 02:15 Urine Culture - Preliminary Urine,Catheterized 02/27/18 16:13 Blood Culture - Preliminary Blood No Growth after 48 hours Assessment and Plan Plan: Assessment 1 acute purulent acalculus cholecystitis with possibly passing of a biliary stone. Patient is status post laparoscopic cholecystectomy and insertion of a BEBA drain in the right upper quadrant area. She is postop day #1. 2 sepsis with secondary hypotension, likely secondary to acute cholecystitis. The patient is still requiring pressors and she is still on norepinephrine infusion. 3 leukocytosis secondary to above, improving 4 abdominal pain secondary to above essentially involving the right upper quadrant, improving 5 hypothyroidism 6 history of spinal CVA Plan Continue IV fluids. Continue IV Zosyn. Wean off pressors. The patient runs atypically low blood pressure. The patient has adequate urine output. Rest electrodes are all within normal limits. We'll continue to follow.
--- NOTE | 2018-03-02 12:34 | P.PN ---
Subjective Progress Note Date: 03/02/18 27-year-old seen in the ICU sitting up in bed appears in no acute distress. Patients being followed by pediatric dental assistant. Patient states is less abdominal pain this morning. BEBA drain in place. States not passing gas tolerating clear liquid was no nausea no vomiting no fever chills. Laparoscopic cholecystectomy done March 01 for purlent acute cholecystitis Objective - Vital Signs Vital signs: Vital Signs Temp 100.0 F H 03/02/18 12:00 Pulse 93 03/02/18 12:15 Resp 17 03/02/18 12:15 BP 81/53 03/02/18 12:15 Pulse Ox 93 L 03/02/18 12:15 Intake & Output 03/01/18 03/02/18 03/02/18 18:59 06:59 18:59 Intake Total 3675.062 2147.75 2190.188 Output Total 1630 1510 1670 Balance 2045.062 637.75 520.188 Weight 86.1 kg Intake: IV 2312.5 1862.5 925.0 Lactated Ringers 1,000 ml 1500 1800 900 @ 150 mls/hr IV .Q6H40M [facility] Rx#:[id number] Piperacillin-Tazobactam 3 12.5 62.5 25.0 .375 gm In Dextrose/Water 1 50ml.bag @ 12.5 mls/hr IVPB Q8H [facility] Rx#: [id number] Intake, IV Titration 162.562 285.25 345.188 Amount Magnesium Sulfate-D5w Pmx 200 1 gm In Dextrose/Water 1 100ml.bag @ 100 mls/hr IVPB Q1H [facility] Rx#: [id number] Norepinephrine 4 mg In 162.562 285.25 145.188 Sodium Chloride 0.9% 250 ml @ Titrate IV .Q0M [facility] Rx#:[id number] Oral 1200 920 Output: Drainage 30 100 30 Anterior Abdomen 30 100 30 Urine 1560 1410 1640 Estimated Blood Loss 40 Other: Voiding Method Indwelling Catheter Indwelling Catheter - Exam Physical exam 47-year-old sitting up in bed appears in no acute distress Lungs adequate air movement bilaterally no shortness of breath Heart S1-S2 audible regular denying chest pain Abdomen surgical dressing site dry BEBA drain right upper quadrant moderate amount of bloody drainage noted in the bulb states no nausea no vomiting tolerating clear liquid passing gas no stool indwelling Yuan catheter in place Extremities no edema - Labs CBC & Chem 7: 03/02/18 05:02 03/02/18 09:40 Labs: Abnormal Lab Results - Last 24 Hours (Table) 03/02/18 03/02/18 Range/Units 05:02 05:02 WBC 14.6 H (3.8-10.6) k/uL RBC 3.56 L (3.80-5.40) m/uL Hgb 11.1 L (11.4-16.0) gm/dL Hct 33.7 L (34.0-46.0) % Neutrophils # 12.9 H (1.3-7.7) k/uL Lymphocytes # 0.9 L (1.0-4.8) k/uL Chloride 108 H (98-107) mmol/L BUN 6 L (7-17) mg/dL Glucose 135 H (74-99) mg/dL Calcium 8.1 L (8.4-10.2) mg/dL Total Bilirubin 1.6 H (0.2-1.3) mg/dL AST 40 H (14-36) U/L ALT 78 H (9-52) U/L Alkaline Phosphatase 147 H (38-126) U/L Total Protein 5.2 L (6.3-8.2) g/dL Albumin 2.5 L (3.5-5.0) g/dL Microbiology - Last 24 Hours (Table) 03/01/18 02:15 Urine Culture - Preliminary Urine,Catheterized 02/27/18 16:13 Blood Culture - Preliminary Blood No Growth after 48 hours Assessment and Plan Assessment: Impression acute cholecystitis with cholelithiasis Postop March 01 laparoscopic cholecystectomy for purlent cholecystitis Present on admission sepsis with septic shock as evident by hypotension, leukocytosis febrile History of illicit drug use prior cocaine and heroin abuse Elevated liver enzymes Plan Continue postop surgical care Continue ICU management per pediatric dental assistant Monitor labs IV antibiotics ordered Zosyn Pain control DVT and GI prophylaxis The above impression and plan of care have been discussed and directed by signing physician. Vero Hernandez nurse practitioner acting as scribe for signing physician.
[2018-03-02] MEDS: IBUPROFEN 600 MG TAB PO PRN (20:35)
--- NOTE | 2018-03-02 23:44 | P.PN ---
Subjective Progress Note Date: 03/02/18 Principal diagnosis: Abdominal pain, elevated liver enzymes The patient states that she is still having small amount of pain but overall is much improved since presentation. Is tolerating diet. No hematochezia or melena reported. Objective - Vital Signs Vital signs: Vital Signs Temp 100 F H 03/02/18 20:00 Pulse 112 H 03/02/18 23:30 Resp 18 03/02/18 23:30 BP 110/64 03/02/18 23:30 Pulse Ox 90 L 03/02/18 23:30 Intake & Output 03/02/18 03/02/18 03/03/18 06:59 18:59 06:59 Intake Total 2147.75 3958.001 785.563 Output Total 1510 3185 965 Balance 637.75 773.001 -179.437 Weight 86.1 kg Intake: IV 1862.5 1875.0 762.5 Lactated Ringers 1,000 ml 1800 1800 750 @ 150 mls/hr IV .Q6H40M [facility] Rx#:[id number] Piperacillin-Tazobactam 3 62.5 75.0 12.5 .375 gm In Dextrose/Water 1 50ml.bag @ 12.5 mls/hr IVPB Q8H [facility] Rx#: [id number] Intake, IV Titration 285.25 443.001 23.063 Amount Magnesium Sulfate-D5w Pmx 200 1 gm In Dextrose/Water 1 100ml.bag @ 100 mls/hr IVPB Q1H [facility] Rx#: [id number] Norepinephrine 4 mg In 285.25 243.001 23.063 Sodium Chloride 0.9% 250 ml @ Titrate IV .Q0M [facility] Rx#:[id number] Oral 1640 Output: Drainage 100 65 15 Anterior Abdomen 100 65 15 Urine 1410 3120 950 Other: Voiding Method Indwelling Catheter Indwelling Catheter - Exam On physical examination, patient appears comfortable in no apparent distress. HEAD: Normocephalic, atraumatic. EYES: No scleral icterus. No conjunctival injection. MOUTH: No lesions, tongue midline, poor dentition. NECK: Trachea midline, no gross abnormalities. CHEST: Clear to auscultation with no wheezing or rhonchi appreciated. HEART: Regular rate and rhythm. ABDOMEN: Soft, obese. Bowel sounds are positive. No organomegaly. No guarding or rigidity. EXTREMITIES: No pedal edema with the patient hypersensitive to touch on the left lower extremity which is chronic after prior infarction. SKIN: No rashes, no jaundice. NEUROLOGIC: Alert and oriented x3. - Labs CBC & Chem 7: 03/02/18 05:02 03/02/18 09:40 Labs: Abnormal Lab Results - Last 24 Hours (Table) 03/02/18 03/02/18 Range/Units 05:02 05:02 WBC 14.6 H (3.8-10.6) k/uL RBC 3.56 L (3.80-5.40) m/uL Hgb 11.1 L (11.4-16.0) gm/dL Hct 33.7 L (34.0-46.0) % Neutrophils # 12.9 H (1.3-7.7) k/uL Lymphocytes # 0.9 L (1.0-4.8) k/uL Chloride 108 H (98-107) mmol/L BUN 6 L (7-17) mg/dL Glucose 135 H (74-99) mg/dL Calcium 8.1 L (8.4-10.2) mg/dL Total Bilirubin 1.6 H (0.2-1.3) mg/dL AST 40 H (14-36) U/L ALT 78 H (9-52) U/L Alkaline Phosphatase 147 H (38-126) U/L Total Protein 5.2 L (6.3-8.2) g/dL Albumin 2.5 L (3.5-5.0) g/dL Microbiology - Last 24 Hours (Table) 02/27/18 16:13 Blood Culture - Preliminary Blood No Growth after 72 hours 03/01/18 02:15 Urine Culture - Preliminary Urine,Catheterized Assessment and Plan (1) Abdominal pain Narrative/Plan: Abdominal pain and elevated liver enzymes likely secondary to acute cholecystitis with the possibility of passed gallstone. The patient is status post cholecystectomy currently feeling improved. Current Visit: Yes Status: Acute Code(s): R10.9 - UNSPECIFIED ABDOMINAL PAIN SNOMED Code(s): 27166889 (2) Cholecystitis with cholelithiasis Narrative/Plan: As above. Current Visit: Yes Status: Acute Code(s): K80.10 - CALCULUS OF GALLBLADDER W CHRONIC CHOLECYST W/O OBSTRUCTION SNOMED Code(s): 497064257 (3) Elevated bilirubin Narrative/Plan: As above. Current Visit: Yes Status: Acute Code(s): R17 - UNSPECIFIED JAUNDICE SNOMED Code(s): 163900162 Plan: Supportive care Diet per surgical service Continue to monitor liver enzymes No plan for ERCP at this time Continue antibiotic therapy Gastroenterology service will stand by, thank you for allowing us to participate in the care of this patient is any further questions or concerns arise please contact us
[2018-03-03] MEDS: HEPARIN SODIUM,PORCINE 5,000 UNIT/ML 1 ML VIAL SQ SCH ×4 (00:03→23:10)
[2018-03-03] MEDS: GABAPENTIN 300 MG CAP PO SCH ×6 (01:07→21:17)
[2018-03-03] MEDS: PIPERACILLIN-TAZOBACTAM 3.375 GM in DEXTROSE/WATER 1 50ML.BAG IVPB SCH ×3 (01:07→17:47)
[2018-03-03] MEDS: HYDROmorphone 1 MG/ML 1 ML SYRINGE IVP PRN ×3 (01:08→09:02)
[2018-03-03] MEDS: LEVOTHYROXINE 100 MCG TAB PO SCH (05:34)
[2018-03-03 05:54] LABS: ALT 59 U/L (9-52); AST 20 U/L (14-36); Albumin 2.2 g/dL (3.5-5.0); Alkaline Phosphatase 124 U/L (38-126); Anion Gap 6 mmol/L; Blood Urea Nitrogen 5 mg/dL (7-17); Calcium 8.1 mg/dL (8.4-10.2); Carbon Dioxide 24 mmol/L (22-30); Chloride 108 mmol/L (98-107); Glucose 125 mg/dL (74-99); Magnesium 1.9 mg/dL (1.6-2.3); Potassium 3.5 mmol/L (3.5-5.1); Sodium 138 mmol/L (137-145); Total Protein 4.6 g/dL (6.3-8.2)
[2018-03-03 05:59] LABS: Basophils % (A) 0 %; Eosinophils # (A) 0.1 k/uL (0-0.7); Eosinophils % (A) 1 %; HCT 28.8 % (34.0-46.0); Lymphocytes % (A) 6 %; MCH 30.8 pg (25.0-35.0); MCHC 32.3 g/dL (31.0-37.0); MCV 95.4 fL (80.0-100.0); Mean Platelet Volume 6.6; Monocytes # (A) 0.4 k/uL (0-1.0); Monocytes % (A) 3 %; Neutrophils # (A) 13.9 k/uL (1.3-7.7); Neutrophils % (A) 90 %; Platelet Count 392 k/uL (150-450); RBC 3.02 m/uL (3.80-5.40); RDW 13.1 % (11.5-15.5); WBC 15.5 k/uL (3.8-10.6)
[2018-03-03 06:00] LABS: HGB 9.3 gm/dL (11.4-16.0)
[2018-03-03] MEDS ORDERED: POTASSIUM CHLORIDE ER 20 MEQ TAB.ER PO SCH (08:00)
[2018-03-03] MEDS: LACTATED RINGERS 1,000 ML IV SCH ×3 (08:51→23:08)
[2018-03-03] MEDS: MAGNESIUM SULFATE-D5W PMX 1 GM in DEXTROSE/WATER 1 100ML.BAG IVPB SCH ×2 (09:00→10:25)
[2018-03-03] MEDS: PANTOPRAZOLE 40 MG TABLET PO SCH (09:01)
[2018-03-03] MEDS: BACLOFEN 10 MG TAB PO SCH ×3 (09:01→21:17)
[2018-03-03] MEDS: FOLIC ACID 1 MG TAB PO SCH (09:01)
[2018-03-03] MEDS: PYRIDOXINE 50 MG TAB PO SCH (09:01)
[2018-03-03] MEDS: OXYBUTYNIN CHLORIDE 5 MG TAB PO SCH ×3 (09:01→21:17)
[2018-03-03] MEDS ORDERED: MAGNESIUM HYDROXIDE 2,400 MG/10 ML CUP PO PRN (09:19)
--- NOTE | 2018-03-03 09:21 | P.PN ---
Subjective Progress Note Date: 03/03/18 47-year-old female patient who presented yesterday to the emergency department with complaints of epigastric and right upper quadrant pain. The pain was quite extensive and it was 8 out of 10 in severity. She had an ultrasound the gallbladder and she was diagnosed having an acute cholecystitis. She was started on IV Zosyn. Overnight she was given 2 L of IV fluids and other 2 L was given this morning for some borderline hypotension and the systolic blood pressure in the mid 80s. The pain is still active for now and the patient's white cell count is at 16.1. On today's blood work, the AST is up to 110, ALC is up to 141 and the bilirubin is up to 1.9. The patient had a lactic acid level of 0.9. She is a bit nauseated. No emesis. She has a right upper quadrant pain. Afebrile for now. General surgeries on the case. Initial plan was to proceed with cholecystectomy him however with these abnormalities in the liver function test that think it's reasonable to get a consult with GI for possible ERCP. Possibilities are still cholecystitis with questionable signs of early cholangitis. She is on Dilaudid for pain control. She is on IV Zosyn. She has on IV fluids and the patient is receiving 125 mL an hour of normal saline. The CAT scan of the abdomen was done yesterday showed findings consistent with acalculous cholecystitis. There was hepatomegaly. A limited disease of the spleen. Degenerative changes of the spine. On 03/01/2018 the patient was seen preoperatively. The plan is to proceed with a cholecystectomy today. The patient's tenderness is less in the right upper quadrant. Nevertheless she is hypotensive. She was given approximately 8 L of IV fluids and she continued to be borderline hypotensive preserving urine output and preserving the renal function. Overnight I give the patient pressors and the patient is on few mics of levo fed for hemodynamic support. Her LFTs are still abnormal although improved compared to yesterday. The bilirubin is down to 1.6. AST is down to 35 and ALP is down to 91. The plan is proceed with a laparoscopic cholecystectomy today. She is afebrile. Pulse ox 90% on room air. No rest or distress. No altered mentation. 03/02/2018 the patient is postop day #1 following a laparoscopic cholecystectomy. The patient was found to have a suppurative cholecystitis and the patient underwent lap phillip and the BEBA drain was inserted. The patient is being seen in follow-up H is awake and alert. Her pain is less compared to yesterday. BEBA drain output has been 130 mL since arrival from the operating room. She was given IV fluids and she remains on lactated Ringer 150 mL an hour. She is still requiring pressors and norepinephrine infusion rate has been ranging and currently she is on 5 mics. The white cell count is dropping down to 14.6. She had some abdominal distention which is improved on today's evaluation. She is not passing flatus yet. She is taking some clear liquid diet. No chills. No fever. Remains on IV Zosyn. No altered mentation. Pain control is with Dilaudid 1 mg every 3 hours on a when necessary basis. 03/03/2008 Seeing this patient for a postop day #2 following a laparoscopic cholecystectomy. She had a suppurative cholecystitis and she underwent the surgery. She is doing well. The patient is still on pressors. After weaning down her presses down to 0.5 mics of norepinephrine infusion, the patient was given Dilaudid and subsequently her blood pressure dropped. She is currently at 5 mics per KG per minute. I think she does a baseline low blood pressure. She is on lactated Ringer at 1 50 mL an hour and she is producing adequate amount of urine output. No direct right imbalance. Liver function is improving and the AST and ALP have normalized and alkaline phosphatase is also normalized. BEBA drain is putting out minimal amount of output. She has flatus pH is bowel sounds. Her diet is advanced. Had a white cell count of 15.5. No shortness of breath. No altered mentation. Pain is under a good control. Blood cultures been negative. Objective - Vital Signs Vital signs: Vital Signs Temp 97.9 F 03/03/18 08:00 Pulse 85 03/03/18 09:00 Resp 15 03/03/18 09:00 BP 103/64 03/03/18 09:00 Pulse Ox 97 03/03/18 09:00 Intake & Output 03/02/18 03/03/18 03/03/18 18:59 06:59 18:59 Intake Total 3958.001 2356.023 150 Output Total 3185 2155 160 Balance 773.001 201.023 -10 Weight 89 kg Intake: IV 1875.0 1862.5 150 Lactated Ringers 1,000 ml 1800 1800 150 @ 150 mls/hr IV .Q6H40M [facility] Rx#:[id number] Piperacillin-Tazobactam 3 75.0 62.5 .375 gm In Dextrose/Water 1 50ml.bag @ 12.5 mls/hr IVPB Q8H [facility] Rx#: [id number] Intake, IV Titration 443.001 93.523 Amount Magnesium Sulfate-D5w Pmx 200 1 gm In Dextrose/Water 1 100ml.bag @ 100 mls/hr IVPB Q1H [facility] Rx#: [id number] Norepinephrine 4 mg In 243.001 93.523 Sodium Chloride 0.9% 250 ml @ Titrate IV .Q0M [facility] Rx#:[id number] Oral 1640 400 Output: Drainage 65 30 10 Anterior Abdomen 65 30 10 Urine 3120 2125 150 Other: Voiding Method Indwelling Catheter Indwelling Catheter - Exam Gen. appearance the patient a mild abdominal discomfort. Not using accessory muscles of breathing. Head exam was generally normal. There was no scleral icterus or corneal arcus. Mucous membranes were moist. Neck was supple and without jugular venous distension, thyromegaly, or carotid bruits. Carotids were easily palpable bilaterally. There was no adenopathy. Lungs were clear to auscultation and percussion, and with normal diaphragmatic excursion. No wheezes or rales were noted. Cardiac exam revealed the PMI to be normally situated and sized. The rhythm was regular and no extrasystoles were noted during several minutes of auscultation. The first and second heart sounds were normal and physiologic splitting of the second heart sound was noted. There were no murmurs, rubs, clicks, or gallops. Examination of the abdomen shows a minimal tenderness in the right upper quadrant area. Surgical wound site is clean. BEBA drains in place. No ascites. No rebound tenderness. No guarding. Hypoactive bowel sounds are present. Examination of the extremities revealed easily palpable radial, femoral and pedal pulses. There was no cyanosis, clubbing or edema. Examination of the skin revealed no evidence of significant rashes, suspicious appearing nevi or other concerning lesions. Neurologically the patient is awake and alert. She has chronic weakness in her lower extremity especially on the left related to a previous spinal stroke. Gait was not assessed at this point in time. Cranial nerves are intact. No focal neurological deficit and the cranial nerves. Pupils are equal reactive to light. - Labs CBC & Chem 7: 03/03/18 05:25 03/03/18 05:25 Labs: Abnormal Lab Results - Last 24 Hours (Table) 03/03/18 03/03/18 Range/Units 05:25 05:25 WBC 15.5 H (3.8-10.6) k/uL RBC 3.02 L (3.80-5.40) m/uL Hgb 9.3 L D (11.4-16.0) gm/dL Hct 28.8 L (34.0-46.0) % Neutrophils # 13.9 H (1.3-7.7) k/uL Chloride 108 H (98-107) mmol/L BUN 5 L (7-17) mg/dL Glucose 125 H (74-99) mg/dL Calcium 8.1 L (8.4-10.2) mg/dL ALT 59 H (9-52) U/L Total Protein 4.6 L (6.3-8.2) g/dL Albumin 2.2 L (3.5-5.0) g/dL Microbiology - Last 24 Hours (Table) 02/27/18 16:13 Blood Culture - Preliminary Blood No Growth after 72 hours 03/01/18 02:15 Urine Culture - Preliminary Urine,Catheterized Assessment and Plan Plan: Assessment 1 acute purulent acalculus cholecystitis with possibly passing of a biliary stone. Patient is status post laparoscopic cholecystectomy and insertion of a BEBA drain in the right upper quadrant area. She is postop day #2. Clinically the patient is improving. Abdominal pains is subsided. LFTs are improving. Hemodynamically she is still requiring a small dose of pressors yet the patient runs a baseline low blood pressure. 2 sepsis with secondary hypotension, likely secondary to acute cholecystitis. The patient is still requiring pressors and she is still on norepinephrine infusion. 3 leukocytosis secondary to above, improving 4 abdominal pain secondary to above essentially involving the right upper quadrant, improving 5 hypothyroidism 6 history of spinal CVA Plan Continue IV fluids. Continue IV Zosyn. Wean off pressors. I think this patient runs a essentially low blood pressure and should be able to allow a mean arterial pressure above 65 for now.
[2018-03-03] MEDS: DOCUSATE 100 MG CAP PO SCH (10:29)
--- NOTE | 2018-03-03 11:03 | P.PN ---
Subjective Progress Note Date: 03/03/18 Patient is a 47 year old female who presented to [facility] emergency room the chief complaint of abdominal pain patient describes a severe pain in the epigastric area that started about 12 hours prior to presentation she was evaluated in the emergency room she had a computed tomography scan of the abdomen and pelvis and ultrasound of the abdomen off were suggestive of cholecystitis patient also had leukocytosis and low-grade fever he was started on IV antibiotic Zosyn and admitted to medical floor surgical consultation was requested. During this admission patient had low blood pressure and required IV fluid boluses. On 03/01/2018 patient is currently in the intensive care unit requiring Levophed for pressure support. Per nursing staff patient. Planning for laparoscopic cholecystectomy with Dr. Lopez today. Patient states she is still having severe upper abdominal pain. This time. Patient denies chest pain or shortness breath. Dr. Sexton Per critical care service is following closely. Dr. Light consulted for infectious disease. On 03/02/2018 patient remains in the intensive care unit on levophed for pressure support. Patient is currently alert and oriented 3. Patient status post laparoscopic cholecystectomy with Dr. Lopez yesterday. At this time patient denies chest pain or shortness breath.. Denies any urinary burning or frequency On 03/03/2018 patient remains in the intensive care unit. Patient is currently alert and oriented 3. Patient does state she is feeling improved. Patient remains on pressors. This time patient denies chest pain or shortness of breath. Patient does state she is passing gas but has not had a bowel movement. Patient denies any nausea vomiting or diarrhea. Patient denies any urinary burning or frequency Objective - Vital Signs Vital signs: Vital Signs Temp 97.9 F 03/03/18 08:00 Pulse 90 03/03/18 10:30 Resp 16 03/03/18 10:30 BP 92/61 03/03/18 10:30 Pulse Ox 94 L 03/03/18 10:30 Intake & Output 03/02/18 03/03/18 03/03/18 18:59 06:59 18:59 Intake Total 3958.001 2356.023 1155.313 Output Total 3185 2155 550 Balance 773.001 201.023 605.313 Weight 89 kg Intake: IV 1875.0 1862.5 600 Lactated Ringers 1,000 ml 1800 1800 600 @ 150 mls/hr IV .Q6H40M [facility] Rx#:[id number] Piperacillin-Tazobactam 3 75.0 62.5 .375 gm In Dextrose/Water 1 50ml.bag @ 12.5 mls/hr IVPB Q8H [facility] Rx#: [id number] Intake, IV Titration 443.001 93.523 315.313 Amount Magnesium Sulfate-D5w Pmx 200 1 gm In Dextrose/Water 1 100ml.bag @ 100 mls/hr IVPB Q1H [facility] Rx#: [id number] Magnesium Sulfate-D5w Pmx 200 1 gm In Dextrose/Water 1 100ml.bag @ 100 mls/hr IVPB Q1H [facility] Rx#: [id number] Norepinephrine 4 mg In 243.001 93.523 115.313 Sodium Chloride 0.9% 250 ml @ Titrate IV .Q0M [facility] Rx#:[id number] Oral 1640 400 240 Output: Drainage 65 30 10 Anterior Abdomen 65 30 10 Urine 3120 2125 540 Other: Voiding Method Indwelling Catheter Indwelling Catheter - Exam Head normocephalic Neck supple Lungs clear to auscultation bilaterally no wheezing or crackles Heart regular rate and rhythm S1-S2, no rub or gallop Abdomen is soft with tenderness in the epigastric and right upper quadrant area. Positive bowel sounds throughout. No hepato-splenomegaly. Surgical dressing clean dry and intact. BEBA in place right upper quadrant Extremities no edema Neuro alert and orientated to 3 - Labs CBC & Chem 7: 03/03/18 05:25 03/03/18 05:25 Labs: Abnormal Lab Results - Last 24 Hours (Table) 03/03/18 03/03/18 Range/Units 05:25 05:25 WBC 15.5 H (3.8-10.6) k/uL RBC 3.02 L (3.80-5.40) m/uL Hgb 9.3 L D (11.4-16.0) gm/dL Hct 28.8 L (34.0-46.0) % Neutrophils # 13.9 H (1.3-7.7) k/uL Chloride 108 H (98-107) mmol/L BUN 5 L (7-17) mg/dL Glucose 125 H (74-99) mg/dL Calcium 8.1 L (8.4-10.2) mg/dL ALT 59 H (9-52) U/L Total Protein 4.6 L (6.3-8.2) g/dL Albumin 2.2 L (3.5-5.0) g/dL Microbiology - Last 24 Hours (Table) 03/01/18 02:15 Urine Culture - Final Urine,Catheterized 02/27/18 16:13 Blood Culture - Preliminary Blood No Growth after 72 hours Assessment and Plan Assessment: #1 acute cholecystitis with cholelithiasis. Patient is postop day 1 status post Laprascopic cholecystectomy with Dr. Lopez. Postoperative Diagnosis of Purulent Cholecystitis. #[address] Light per infectious disease consulted. Patient receiving Zosyn for antibiotic. White blood cell 15.5. Blood culture showing no growth at this time #3 sepsis, with septic shock as evidenced by hypotension, leukocytosis, fever patient received multiple fluid boluses, with minimal improvement in her blood pressure she will be transferred to ICU critical care consult was requested. patient currently on Levophed for pressure support. Dr. Sexton per critical care following closely #4 possible urinary tract infection #5 underlying history of hypothyroidism #6 underlying history of gastroesophageal reflux disease #7. Elevated liver enzymes. GI consult has been placed for possible ERCP. Total bili decreasing to 1.0 AST 20, ALT 59 and alkaline phosphatase 124. Per GI services no plan for ERCP at this time #8. History of illicit drug use. Patient has history of cocaine and heroine abuse. #9. History of CVA/TIA #10. History of MRSA. Patient was positive for MRSA, no blood in December 2016 DVT prophylaxis heparin. GI prophylaxis Pepcid I performed an examination of the patient and discussed their management with the Nurse Practitioner. I have reviewed the Nurse Practitioner's notes and agree with the documented findings and plan of care
[2018-03-03] MEDS: NOREPINEPHRINE 4 MG in SODIUM CHLORIDE 0.9% 250 ML IV SCH (11:30)
--- NOTE | 2018-03-03 14:05 | P.PN ---
Subjective Progress Note Date: 03/03/18 47-year-old female seen this morning in the intensive care unit awake alert. Patient stating she is anxious to get out of bed denies dizziness lightheadedness chest pain or shortness of breath remains on low-dose pressor. Being followed by the marketing rep. Patient states passing gas but has not had a bowel movement is tolerating a diet with no nausea no vomiting Laparoscopic cholecystectomy done March 01 for purlent acute cholecystitis Objective - Vital Signs Vital signs: Vital Signs Temp 98.0 F 03/03/18 12:00 Pulse 101 H 03/03/18 13:30 Resp 12 03/03/18 13:30 BP 95/62 03/03/18 13:30 Pulse Ox 97 03/03/18 13:30 Intake & Output 03/02/18 03/03/18 03/03/18 18:59 06:59 18:59 Intake Total 3958.001 2356.023 1642.813 Output Total 3185 2155 1300 Balance 773.001 201.023 342.813 Weight 89 kg Intake: IV 1875.0 1862.5 1087.5 Lactated Ringers 1,000 ml 1800 1800 1050 @ 150 mls/hr IV .Q6H40M [facility] Rx#:[id number] Piperacillin-Tazobactam 3 75.0 62.5 37.5 .375 gm In Dextrose/Water 1 50ml.bag @ 12.5 mls/hr IVPB Q8H [facility] Rx#: [id number] Intake, IV Titration 443.001 93.523 315.313 Amount Magnesium Sulfate-D5w Pmx 200 1 gm In Dextrose/Water 1 100ml.bag @ 100 mls/hr IVPB Q1H [facility] Rx#: [id number] Magnesium Sulfate-D5w Pmx 200 1 gm In Dextrose/Water 1 100ml.bag @ 100 mls/hr IVPB Q1H [facility] Rx#: [id number] Norepinephrine 4 mg In 243.001 93.523 115.313 Sodium Chloride 0.9% 250 ml @ Titrate IV .Q0M [facility] Rx#:[id number] Oral 1640 400 240 Output: Drainage 65 30 10 Anterior Abdomen 65 30 10 Urine 3120 2125 1290 Other: Voiding Method Indwelling Catheter Indwelling Catheter - Exam Physical exam 47-year-old sitting up in bed alert oriented talkative appears in no acute distress Lungs adequate air movement bilaterally no shortness of breath no cough noted no shortness of breath Heart S1-S2 audible regular denying chest pain Abdomen surgical dressing site dry BEBA drain right upper quadrant small amount of bloody drainage noted in the bulb states no nausea no vomiting tolerating diet passing gas no stool indwelling Yuan catheter in place Extremities no edema - Labs CBC & Chem 7: 03/03/18 05:25 03/03/18 05:25 Labs: Abnormal Lab Results - Last 24 Hours (Table) 03/03/18 03/03/18 Range/Units 05:25 05:25 WBC 15.5 H (3.8-10.6) k/uL RBC 3.02 L (3.80-5.40) m/uL Hgb 9.3 L D (11.4-16.0) gm/dL Hct 28.8 L (34.0-46.0) % Neutrophils # 13.9 H (1.3-7.7) k/uL Chloride 108 H (98-107) mmol/L BUN 5 L (7-17) mg/dL Glucose 125 H (74-99) mg/dL Calcium 8.1 L (8.4-10.2) mg/dL ALT 59 H (9-52) U/L Total Protein 4.6 L (6.3-8.2) g/dL Albumin 2.2 L (3.5-5.0) g/dL Microbiology - Last 24 Hours (Table) 03/01/18 02:15 Urine Culture - Final Urine,Catheterized 02/27/18 16:13 Blood Culture - Preliminary Blood No Growth after 72 hours Assessment and Plan Assessment: Impression acute cholecystitis with cholelithiasis Postop March 01 laparoscopic cholecystectomy for purlent cholecystitis Present on admission sepsis with septic shock as evident by hypotension, leukocytosis febrile History of illicit drug use prior cocaine and heroin abuse Elevated liver enzymes Plan Increase activity Continue postop surgical care Continue ICU management per marketing rep Monitor labs IV antibiotics ordered Zosyn Pain control DVT and GI prophylaxis Surgically felt to be appropriate to be transferred out of the ICU defer to marketing rep The above impression and plan of care have been discussed and directed by signing physician. Vero Hernandez nurse practitioner acting as scribe for signing physician.
[2018-03-03] MEDS: IBUPROFEN 600 MG TAB PO PRN (20:50)
[2018-03-04] MEDS: PIPERACILLIN-TAZOBACTAM 3.375 GM in DEXTROSE/WATER 1 50ML.BAG IVPB SCH ×3 (02:29→17:54)
[2018-03-04] MEDS: GABAPENTIN 300 MG CAP PO SCH ×6 (02:49→23:15)
[2018-03-04] MEDS: LACTATED RINGERS 1,000 ML IV SCH ×4 (02:51→23:15)
[2018-03-04] MEDS: LEVOTHYROXINE 100 MCG TAB PO SCH (07:21)
[2018-03-04 08:54] LABS: Basophils % (A) 0 %; Eosinophils # (A) 0.2 k/uL (0-0.7); Eosinophils % (A) 1 %; HCT 29.3 % (34.0-46.0); HGB 9.5 gm/dL (11.4-16.0); Lymphocytes % (A) 6 %; MCH 30.8 pg (25.0-35.0); MCHC 32.5 g/dL (31.0-37.0); MCV 94.8 fL (80.0-100.0); Monocytes # (A) 0.6 k/uL (0-1.0); Monocytes % (A) 4 %; Neutrophils # (A) 13.6 k/uL (1.3-7.7); Neutrophils % (A) 88 %; Platelet Count 447 k/uL (150-450); RBC 3.09 m/uL (3.80-5.40); RDW 13.2 % (11.5-15.5); WBC 15.5 k/uL (3.8-10.6)
[2018-03-04 08:59] LABS: ALT 45 U/L (9-52); AST 19 U/L (14-36); Albumin 2.3 g/dL (3.5-5.0); Alkaline Phosphatase 130 U/L (38-126); Anion Gap 8 mmol/L; Blood Urea Nitrogen 7 mg/dL (7-17); Calcium 8.1 mg/dL (8.4-10.2); Carbon Dioxide 24 mmol/L (22-30); Chloride 108 mmol/L (98-107); Glucose 92 mg/dL (74-99); Magnesium 1.9 mg/dL (1.6-2.3); Potassium 3.9 mmol/L (3.5-5.1); Sodium 140 mmol/L (137-145); Total Bilirubin 0.9 mg/dL (0.2-1.3); Total Protein 4.9 g/dL (6.3-8.2)
[2018-03-04] MEDS: FOLIC ACID 1 MG TAB PO SCH (09:14)
[2018-03-04] MEDS: DOCUSATE 100 MG CAP PO SCH (09:14)
[2018-03-04] MEDS: PYRIDOXINE 50 MG TAB PO SCH (09:14)
[2018-03-04] MEDS: OXYBUTYNIN CHLORIDE 5 MG TAB PO SCH ×3 (09:15→23:14)
[2018-03-04] MEDS: BACLOFEN 10 MG TAB PO SCH ×3 (09:15→23:14)
[2018-03-04] MEDS: HEPARIN SODIUM,PORCINE 5,000 UNIT/ML 1 ML VIAL SQ SCH ×3 (09:15→23:20)
[2018-03-04] MEDS: PANTOPRAZOLE 40 MG TABLET PO SCH (09:15)
--- NOTE | 2018-03-04 10:28 | P.PN ---
Subjective Progress Note Date: 03/04/18 Patient is a 47 year old female who presented to [facility] emergency room the chief complaint of abdominal pain patient describes a severe pain in the epigastric area that started about 12 hours prior to presentation she was evaluated in the emergency room she had a computed tomography scan of the abdomen and pelvis and ultrasound of the abdomen off were suggestive of cholecystitis patient also had leukocytosis and low-grade fever he was started on IV antibiotic Zosyn and admitted to medical floor surgical consultation was requested. During this admission patient had low blood pressure and required IV fluid boluses. On 03/01/2018 patient is currently in the intensive care unit requiring Levophed for pressure support. Per nursing staff patient. Planning for laparoscopic cholecystectomy with Dr. Lopez today. Patient states she is still having severe upper abdominal pain. This time. Patient denies chest pain or shortness breath. Dr. Sexton Per critical care service is following closely. Dr. Light consulted for infectious disease. On 03/02/2018 patient remains in the intensive care unit on levophed for pressure support. Patient is currently alert and oriented 3. Patient status post laparoscopic cholecystectomy with Dr. Lopez yesterday. At this time patient denies chest pain or shortness breath.. Denies any urinary burning or frequency On 03/03/2018 patient remains in the intensive care unit. Patient is currently alert and oriented 3. Patient does state she is feeling improved. Patient remains on pressors. This time patient denies chest pain or shortness of breath. Patient does state she is passing gas but has not had a bowel movement. Patient denies any nausea vomiting or diarrhea. Patient denies any urinary burning or frequency On 03/04/2018 patient has been moved out of the intensive care unit. Blood pressures have improved. Patient is currently alert and oriented 3. Patient states that she did have a bowel movement last night. Patient is currently on a regular diet. At this time patient denies chest pain or shortness of breath. Patient denies nausea vomiting or diarrhea. Patient denies any urinary burning or frequency. Objective - Vital Signs Vital signs: Vital Signs Temp 97.6 F 03/04/18 06:11 Pulse 90 03/04/18 06:11 Resp 18 03/04/18 06:11 BP 110/64 03/04/18 06:11 Pulse Ox 92 L 03/04/18 01:17 Intake & Output 03/03/18 03/04/18 03/04/18 18:59 06:59 18:59 Intake Total 3858.125 1590 Output Total 2220 765 Balance 1638.125 825 Intake: IV 1862.5 1350 Lactated Ringers 1,000 ml 1800 1300 @ 150 mls/hr IV .Q6H40M [facility] Rx#:[id number] Piperacillin-Tazobactam 3 62.5 50 .375 gm In Dextrose/Water 1 50ml.bag @ 12.5 mls/hr IVPB Q8H [facility] Rx#: [id number] Intake, IV Titration 315.625 Amount Magnesium Sulfate-D5w Pmx 200 1 gm In Dextrose/Water 1 100ml.bag @ 100 mls/hr IVPB Q1H [facility] Rx#: [id number] Norepinephrine 4 mg In 115.625 Sodium Chloride 0.9% 250 ml @ Titrate IV .Q0M [facility] Rx#:[id number] Oral 1680 240 Output: Drainage 40 15 Anterior Abdomen 40 15 Urine 2180 750 Other: Voiding Method Indwelling Catheter Indwelling Catheter # Voids 1 - Exam Head normocephalic Neck supple Lungs clear to auscultation bilaterally no wheezing or crackles Heart regular rate and rhythm S1-S2, no rub or gallop Abdomen is soft with tenderness in the epigastric and right upper quadrant area. Positive bowel sounds throughout. No hepato-splenomegaly. Surgical dressing clean dry and intact. BEBA in place right upper quadrant Extremities no edema Neuro alert and orientated to 3 - Labs CBC & Chem 7: 03/04/18 07:45 03/04/18 07:45 Labs: Abnormal Lab Results - Last 24 Hours (Table) 03/04/18 03/04/18 Range/Units 07:45 07:45 WBC 15.5 H (3.8-10.6) k/uL RBC 3.09 L (3.80-5.40) m/uL Hgb 9.5 L (11.4-16.0) gm/dL Hct 29.3 L (34.0-46.0) % Neutrophils # 13.6 H (1.3-7.7) k/uL Chloride 108 H (98-107) mmol/L Calcium 8.1 L (8.4-10.2) mg/dL Alkaline Phosphatase 130 H (38-126) U/L Total Protein 4.9 L (6.3-8.2) g/dL Albumin 2.3 L (3.5-5.0) g/dL Microbiology - Last 24 Hours (Table) 02/27/18 16:13 Blood Culture - Preliminary Blood No Growth after 96 hours 03/01/18 02:15 Urine Culture - Final Urine,Catheterized Assessment and Plan Assessment: #1 acute cholecystitis with cholelithiasis. Patient is postop day 2 status post Laprascopic cholecystectomy with Dr. Lopez. Postoperative Diagnosis of Purulent Cholecystitis. #2 leukocytosis. WBC 19[address]. [address] Light per infectious disease consulted. Patient receiving Zosyn for antibiotic. White blood cell 15.5. Blood culture showing no growth at this time #3 sepsis, with septic shock as evidenced by hypotension, leukocytosis, fever patient received multiple fluid boluses, with minimal improvement in her blood pressure she will be transferred to ICU critical care consult was requested. patient currently on Levophed for pressure support. Dr. Sexton per critical care following closely #4 possible urinary tract infection #5 underlying history of hypothyroidism #6 underlying history of gastroesophageal reflux disease #7. Elevated liver enzymes. GI consult has been placed for possible ERCP. Total bili decreasing to 1.0 AST 20, ALT 59 and alkaline phosphatase 124. Per GI services no plan for ERCP at this time #8. History of illicit drug use. Patient has history of cocaine and heroine abuse. #9. History of CVA/TIA #10. History of MRSA. Patient was positive for MRSA, no blood in December 2016 DVT prophylaxis heparin. GI prophylaxis Pepcid I performed an examination of the patient and discussed their management with the Nurse Practitioner. I have reviewed the Nurse Practitioner's notes and agree with the documented findings and plan of care
[2018-03-04] MEDS: ONDANSETRON 4 MG/2 ML VIAL IVP PRN ×2 (11:41→23:18)
--- NOTE | 2018-03-04 13:07 | P.PN ---
Subjective Progress Note Date: 03/04/18 47-year-old female seen this morning. Patient states she is been up walking in the don denies dizziness lightheadedness patient stated bowel movement last night. Urinating no difficulty. tolerating diet with no nausea no vomiting. Surgical dressing sites dry. BEBA drain in place serous drainage Laparoscopic cholecystectomy done March 01 for purlent acute cholecystitis Objective - Vital Signs Vital signs: Vital Signs Temp 97.6 F 03/04/18 06:11 Pulse 90 03/04/18 06:11 Resp 18 03/04/18 06:11 BP 110/64 03/04/18 06:11 Pulse Ox 92 L 03/04/18 01:17 Intake & Output 03/03/18 03/04/18 03/04/18 18:59 06:59 18:59 Intake Total 3858.125 1590 Output Total 2220 765 Balance 1638.125 825 Intake: IV 1862.5 1350 Lactated Ringers 1,000 ml 1800 1300 @ 150 mls/hr IV .Q6H40M [facility] Rx#:[id number] Piperacillin-Tazobactam 3 62.5 50 .375 gm In Dextrose/Water 1 50ml.bag @ 12.5 mls/hr IVPB Q8H [facility] Rx#: [id number] Intake, IV Titration 315.625 Amount Magnesium Sulfate-D5w Pmx 200 1 gm In Dextrose/Water 1 100ml.bag @ 100 mls/hr IVPB Q1H [facility] Rx#: [id number] Norepinephrine 4 mg In 115.625 Sodium Chloride 0.9% 250 ml @ Titrate IV .Q0M [facility] Rx#:[id number] Oral 1680 240 Output: Drainage 40 15 Anterior Abdomen 40 15 Urine 2180 750 Other: Voiding Method Indwelling Catheter Indwelling Catheter Toilet # Voids 1 - Exam Physical exam 47-year-old sitting up in bed alert oriented talkative appears in no acute distress states has ambulated in the hallway this morning Lungs adequate air movement bilaterally no shortness of breath no cough noted no shortness of breath Room Air 92% Heart S1-S2 audible regular denying chest pain Abdomen surgical dressing site dry BEBA drain right upper quadrant nondistended surgical tenderness appropriate urinating no difficulty states had a bowel movement yesterday tolerating a diet Extremities no edema - Labs CBC & Chem 7: 03/04/18 07:45 03/04/18 07:45 Labs: Abnormal Lab Results - Last 24 Hours (Table) 03/04/18 03/04/18 Range/Units 07:45 07:45 WBC 15.5 H (3.8-10.6) k/uL RBC 3.09 L (3.80-5.40) m/uL Hgb 9.5 L (11.4-16.0) gm/dL Hct 29.3 L (34.0-46.0) % Neutrophils # 13.6 H (1.3-7.7) k/uL Chloride 108 H (98-107) mmol/L Calcium 8.1 L (8.4-10.2) mg/dL Alkaline Phosphatase 130 H (38-126) U/L Total Protein 4.9 L (6.3-8.2) g/dL Albumin 2.3 L (3.5-5.0) g/dL Microbiology - Last 24 Hours (Table) 02/27/18 16:13 Blood Culture - Preliminary Blood No Growth after 96 hours 03/01/18 02:15 Urine Culture - Final Urine,Catheterized Assessment and Plan Assessment: Impression acute cholecystitis with cholelithiasis Postop March 01 laparoscopic cholecystectomy for purlent cholecystitis Present on admission sepsis with septic shock as evident by hypotension, leukocytosis febrile History of illicit drug use prior cocaine and heroin abuse Elevated liver enzymes Plan Increase activity Continue postop surgical care Monitor labs IV antibiotics ordered Zosyn Pain control DVT and GI prophylaxis Decrease pain medication The above impression and plan of care have been discussed and directed by signing physician. Vero Hernandez nurse practitioner acting as scribe for signing physician.
[2018-03-04] MEDS ORDERED: PROMETHAZINE INJ 25 MG in SODIUM CHLORIDE 0.9% 50 ML IVPB PRN (15:17)
[2018-03-04] MEDS ORDERED: PROCHLORPERAZINE 10 MG TAB PO PRN (15:41)
--- NOTE | 2018-03-04 16:19 | P.PN ---
Subjective Progress Note Date: 03/04/18 Principal diagnosis: Acute purulent a calculus cholecystitis, status post laparoscopic cholecystectomy, sepsis with secondary hypotension 47-year-old female patient who presented yesterday to the emergency department with complaints of epigastric and right upper quadrant pain. The pain was quite extensive and it was 8 out of 10 in severity. She had an ultrasound the gallbladder and she was diagnosed having an acute cholecystitis. She was started on IV Zosyn. Overnight she was given 2 L of IV fluids and other 2 L was given this morning for some borderline hypotension and the systolic blood pressure in the mid 80s. The pain is still active for now and the patient's white cell count is at 16.1. On today's blood work, the AST is up to 110, ALC is up to 141 and the bilirubin is up to 1.9. The patient had a lactic acid level of 0.9. She is a bit nauseated. No emesis. She has a right upper quadrant pain. Afebrile for now. General surgeries on the case. Initial plan was to proceed with cholecystectomy him however with these abnormalities in the liver function test that think it's reasonable to get a consult with GI for possible ERCP. Possibilities are still cholecystitis with questionable signs of early cholangitis. She is on Dilaudid for pain control. She is on IV Zosyn. She has on IV fluids and the patient is receiving 125 mL an hour of normal saline. The CAT scan of the abdomen was done yesterday showed findings consistent with acalculous cholecystitis. There was hepatomegaly. A limited disease of the spleen. Degenerative changes of the spine. On 03/01/2018 the patient was seen preoperatively. The plan is to proceed with a cholecystectomy today. The patient's tenderness is less in the right upper quadrant. Nevertheless she is hypotensive. She was given approximately 8 L of IV fluids and she continued to be borderline hypotensive preserving urine output and preserving the renal function. Overnight I give the patient pressors and the patient is on few mics of levo fed for hemodynamic support. Her LFTs are still abnormal although improved compared to yesterday. The bilirubin is down to 1.6. AST is down to 35 and ALP is down to 91. The plan is proceed with a laparoscopic cholecystectomy today. She is afebrile. Pulse ox 90% on room air. No rest or distress. No altered mentation. 03/02/2018 the patient is postop day #1 following a laparoscopic cholecystectomy. The patient was found to have a suppurative cholecystitis and the patient underwent lap phillip and the BEBA drain was inserted. The patient is being seen in follow-up H is awake and alert. Her pain is less compared to yesterday. BEBA drain output has been 130 mL since arrival from the operating room. She was given IV fluids and she remains on lactated Ringer 150 mL an hour. She is still requiring pressors and norepinephrine infusion rate has been ranging and currently she is on 5 mics. The white cell count is dropping down to 14.6. She had some abdominal distention which is improved on today's evaluation. She is not passing flatus yet. She is taking some clear liquid diet. No chills. No fever. Remains on IV Zosyn. No altered mentation. Pain control is with Dilaudid 1 mg every 3 hours on a when necessary basis. 03/03/2008 Seeing this patient for a postop day #2 following a laparoscopic cholecystectomy. She had a suppurative cholecystitis and she underwent the surgery. She is doing well. The patient is still on pressors. After weaning down her presses down to 0.5 mics of norepinephrine infusion, the patient was given Dilaudid and subsequently her blood pressure dropped. She is currently at 5 mics per KG per minute. I think she does a baseline low blood pressure. She is on lactated Ringer at 1 50 mL an hour and she is producing adequate amount of urine output. No direct right imbalance. Liver function is improving and the AST and ALP have normalized and alkaline phosphatase is also normalized. BEBA drain is putting out minimal amount of output. She has flatus pH is bowel sounds. Her diet is advanced. Had a white cell count of 15.5. No shortness of breath. No altered mentation. Pain is under a good control. Blood cultures been negative. On 03/04/2018 patient seen in follow-up on medical surgical floor. She is resting comfortably in bed, still complains of some abdominal distention, and discomfort, but overall is improved, she is passing gas, and belching. bowel sounds are hypoactive, patient had a bowel movement last night, she is tolerating an oral diet. Hemodynamically stable, no fever no chills, no altered mentation, no shortness of breath. BEBA drain is in place with small amount of serous drainage. No nausea, no vomiting. Is avoiding. Objective - Vital Signs Vital signs: Vital Signs Temp 97.6 F 03/04/18 06:11 Pulse 90 03/04/18 06:11 Resp 18 03/04/18 06:11 BP 98/62 03/04/18 13:59 Pulse Ox 95 03/04/18 02:45 Intake & Output 03/03/18 03/04/18 03/04/18 18:59 06:59 18:59 Intake Total 3858.125 1590 350 Output Total 2220 765 10 Balance 1638.125 825 340 Intake: IV 1862.5 1350 50 Lactated Ringers 1,000 ml 1800 1300 @ 150 mls/hr IV .Q6H40M [facility] Rx#:[id number] Piperacillin-Tazobactam 3 62.5 50 50 .375 gm In Dextrose/Water 1 50ml.bag @ 12.5 mls/hr IVPB Q8H [facility] Rx#: [id number] Intake, IV Titration 315.625 300 Amount Lactated Ringers 1,000 ml 300 @ 0 mls/hr IV .[facility] Rx#:[id number] Magnesium Sulfate-D5w Pmx 200 1 gm In Dextrose/Water 1 100ml.bag @ 100 mls/hr IVPB Q1H [facility] Rx#: [id number] Norepinephrine 4 mg In 115.625 Sodium Chloride 0.9% 250 ml @ Titrate IV .Q0M [facility] Rx#:[id number] Oral 1680 240 Output: Drainage 40 15 Anterior Abdomen 40 15 Urine 2180 750 Emesis 10 Other: Voiding Method Indwelling Catheter Indwelling Catheter Toilet # Voids 1 4 # Bowel Movements 2 - Exam Gen. appearance the patient a mild abdominal discomfort. Not using accessory muscles of breathing. Head exam was generally normal. There was no scleral icterus or corneal arcus. Mucous membranes were moist. Neck was supple and without jugular venous distension, thyromegaly, or carotid bruits. Carotids were easily palpable bilaterally. There was no adenopathy. Lungs were clear to auscultation and percussion, and with normal diaphragmatic excursion. No wheezes or rales were noted. Cardiac exam revealed the PMI to be normally situated and sized. The rhythm was regular and no extrasystoles were noted during several minutes of auscultation. The first and second heart sounds were normal and physiologic splitting of the second heart sound was noted. There were no murmurs, rubs, clicks, or gallops. Examination of the abdomen shows a minimal tenderness in the right upper quadrant area. Surgical wound site is clean. BEBA drains in place. No ascites. No rebound tenderness. No guarding. Hypoactive bowel sounds are present. Examination of the extremities revealed easily palpable radial, femoral and pedal pulses. There was no cyanosis, clubbing or edema. Examination of the skin revealed no evidence of significant rashes, suspicious appearing nevi or other concerning lesions. Neurologically the patient is awake and alert. She has chronic weakness in her lower extremity especially on the left related to a previous spinal stroke. Gait was not assessed at this point in time. Cranial nerves are intact. No focal neurological deficit and the cranial nerves. Pupils are equal reactive to light. - Labs CBC & Chem 7: 03/04/18 07:45 03/04/18 07:45 Labs: Abnormal Lab Results - Last 24 Hours (Table) 03/04/18 03/04/18 Range/Units 07:45 07:45 WBC 15.5 H (3.8-10.6) k/uL RBC 3.09 L (3.80-5.40) m/uL Hgb 9.5 L (11.4-16.0) gm/dL Hct 29.3 L (34.0-46.0) % Neutrophils # 13.6 H (1.3-7.7) k/uL Chloride 108 H (98-107) mmol/L Calcium 8.1 L (8.4-10.2) mg/dL Alkaline Phosphatase 130 H (38-126) U/L Total Protein 4.9 L (6.3-8.2) g/dL Albumin 2.3 L (3.5-5.0) g/dL Microbiology - Last 24 Hours (Table) 02/27/18 16:13 Blood Culture - Preliminary Blood No Growth after 96 hours Assessment and Plan Plan: Assessment: 1 acute purulent acalculus cholecystitis with possibly passing of a biliary stone. Patient is status post laparoscopic cholecystectomy and insertion of a BEBA drain in the right upper quadrant area. She is postop day #3. Clinically the patient is improving. Abdominal pains is subsided. LFTs are improving. Hemodynamically patient is off the pressors 2 sepsis with secondary hypotension, likely secondary to acute cholecystitis. Hypotension has resolved, patient is hemodynamically stable. 3 leukocytosis secondary to above, improving 4 abdominal pain secondary to above essentially involving the right upper quadrant, improving 5 hypothyroidism 6 history of spinal CVA Plan Patient remains off pressors, remains hemodynamically stable, no altered mentation, renal profile is stable, patient is voiding, still has some abdominal discomfort, which is fairly well controlled, increase ambulation, patient had a wall movement, she is passing gas, tolerating oral intake. No shortness of breath, no fever or chills. We will follow the patient on as- needed basis, thank you for this consultation I performed a history & physical examination of the patient and discussed their management with my nurse practitioner, Wendy Alvarez. I reviewed the nurse practitioner's note and agree with the documented findings and plan of care. Lung sounds are positive clear lungs. The findings and the impression was discussed with the patient. I attest to the documentation by the nurse practitioner. Time with Patient: Less than 30
[2018-03-04] MEDS ORDERED: METOCLOPRAMIDE 5 MG/ML 2 ML VIAL IVP STA (16:22)
[2018-03-04] MEDS ORDERED: ONDANSETRON 4 MG/2 ML VIAL IVP STA (16:22)
[2018-03-04] MEDS ORDERED: IOPAMIDOL-300 CONTRAST 30 ML VIAL (ORAL USE) PO PRN (16:30)
--- NOTE | 2018-03-04 20:23 | CT ---
EXAMINATION TYPE: CT abdomen w con DATE OF EXAM: 03/04/2018 COMPARISON: 02/27/2018 HISTORY: Nausea and vomiting post cholecystectomy CT DLP: 1383.5 mGycm Automated exposure control for dose reduction was used. TECHNIQUE: Helical acquisition of images was performed from the lung bases through the top of iliac crest to include entire abdomen. CONTRAST: Performed with Oral Contrast and with IV Contrast, patient injected with 100 mL of Isovue 300. FINDINGS: There is patchy infiltrate and atelectasis at the lung bases. There is small left pleural effusion. T here is no pericardial effusion. There are calcified granulomata at the right pulmonary hilum. Stomach is large. There are multiple dilated fluid-filled loops of small bowel in the abdomen. There is old contrast in the right colon and transverse colon. The small bowel is dilated up to 4 cm. There is a drainage catheter in the right mid abdomen inferior to the right lobe of the liver. There is sm all amount of fluid in the left paracolic gutter. There is no sign of pneumoperitoneum. There is no adrenal mass. Kidneys show satisfactory contrast opacification. There is no hydronephrosi s. There is no retroperitoneal adenopathy. There is cholecystectomy. There is no evidence of a pancre atic mass. There are small calcified splenic granuloma. There is subcutaneous edema around the latera l abdomen. IMPRESSION: THERE IS NEW LOWER LOBE PULMONARY INFILTRATES AND ATELECTASIS. NEW LEFT SMALL PLEURAL EFFUSION. DILATED STOMACH AND SMALL BOWEL IS NONSPECIFIC. THIS COULD RELATE TO SEVERE ILEUS OR MECHANICAL BOWEL OBSTRUCTION. DILATED BOWEL IS NEW COMPARED TO OLD EXAM. NEW SUBCUTANEOUS EDEMA AROUND THE ABDOMEN.
[2018-03-05] MEDS: PIPERACILLIN-TAZOBACTAM 3.375 GM in DEXTROSE/WATER 1 50ML.BAG IVPB SCH ×3 (01:31→18:09)
[2018-03-05] MEDS: GABAPENTIN 300 MG CAP PO SCH ×6 (01:33→22:06)
[2018-03-05] MEDS: ONDANSETRON 4 MG/2 ML VIAL IVP PRN (05:30)
[2018-03-05] MEDS: LACTATED RINGERS 1,000 ML IV SCH ×4 (05:58→22:20)
[2018-03-05] MEDS: LEVOTHYROXINE 100 MCG TAB PO SCH (06:08)
[2018-03-05 07:08] LABS: Basophils % (A) 0 %; Eosinophils # (A) 0.2 k/uL (0-0.7); Eosinophils % (A) 1 %; HCT 28.8 % (34.0-46.0); HGB 9.5 gm/dL (11.4-16.0); Lymphocytes # (A) 0.7 k/uL (1.0-4.8); Lymphocytes % (A) 5 %; MCH 30.7 pg (25.0-35.0); MCHC 32.9 g/dL (31.0-37.0); MCV 93.4 fL (80.0-100.0); Monocytes # (A) 0.6 k/uL (0-1.0); Monocytes % (A) 4 %; Neutrophils # (A) 12.2 k/uL (1.3-7.7); Neutrophils % (A) 88 %; Platelet Count 499 k/uL (150-450); RBC 3.08 m/uL (3.80-5.40); RDW 13.1 % (11.5-15.5); WBC 13.9 k/uL (3.8-10.6)
[2018-03-05 07:12] LABS: ALT 40 U/L (9-52); AST 16 U/L (14-36); Albumin 2.2 g/dL (3.5-5.0); Alkaline Phosphatase 101 U/L (38-126); Anion Gap 9 mmol/L; Blood Urea Nitrogen 9 mg/dL (7-17); Calcium 7.8 mg/dL (8.4-10.2); Carbon Dioxide 25 mmol/L (22-30); Chloride 106 mmol/L (98-107); Glucose 93 mg/dL (74-99); Potassium 3.7 mmol/L (3.5-5.1); Sodium 140 mmol/L (137-145); Total Bilirubin 0.7 mg/dL (0.2-1.3); Total Protein 4.8 g/dL (6.3-8.2)
[2018-03-05] MEDS: PANTOPRAZOLE 40 MG/10 ML VIAL IVP SCH (08:42)
[2018-03-05] MEDS: HEPARIN SODIUM,PORCINE 5,000 UNIT/ML 1 ML VIAL SQ SCH ×3 (08:42→22:20)
[2018-03-05] MEDS: IBUPROFEN 600 MG TAB PO PRN ×2 (09:28→19:17)
[2018-03-05] MEDS: OXYBUTYNIN CHLORIDE 5 MG TAB PO SCH ×3 (09:29→22:06)
[2018-03-05] MEDS: BACLOFEN 10 MG TAB PO SCH ×3 (09:29→22:07)
[2018-03-05] MEDS: PYRIDOXINE 50 MG TAB PO SCH (09:30)
[2018-03-05] MEDS: FOLIC ACID 1 MG TAB PO SCH (09:30)
[2018-03-05] MEDS: DOCUSATE 100 MG CAP PO SCH (09:30)
[2018-03-05 10:40] VITALS: BMI 32.6
--- NOTE | 2018-03-05 10:53 | P.PN ---
Subjective Progress Note Date: 03/05/18 Patient is a 47 year old female who presented to [facility] emergency room the chief complaint of abdominal pain patient describes a severe pain in the epigastric area that started about 12 hours prior to presentation she was evaluated in the emergency room she had a computed tomography scan of the abdomen and pelvis and ultrasound of the abdomen off were suggestive of cholecystitis patient also had leukocytosis and low-grade fever he was started on IV antibiotic Zosyn and admitted to medical floor surgical consultation was requested. During this admission patient had low blood pressure and required IV fluid boluses. On 03/01/2018 patient is currently in the intensive care unit requiring Levophed for pressure support. Per nursing staff patient. Planning for laparoscopic cholecystectomy with Dr. Lopez today. Patient states she is still having severe upper abdominal pain. This time. Patient denies chest pain or shortness breath. Dr. Sexton Per critical care service is following closely. Dr. Light consulted for infectious disease. On 03/02/2018 patient remains in the intensive care unit on levophed for pressure support. Patient is currently alert and oriented 3. Patient status post laparoscopic cholecystectomy with Dr. Lopez yesterday. At this time patient denies chest pain or shortness breath.. Denies any urinary burning or frequency On 03/03/2018 patient remains in the intensive care unit. Patient is currently alert and oriented 3. Patient does state she is feeling improved. Patient remains on pressors. This time patient denies chest pain or shortness of breath. Patient does state she is passing gas but has not had a bowel movement. Patient denies any nausea vomiting or diarrhea. Patient denies any urinary burning or frequency On 03/04/2018 patient has been moved out of the intensive care unit. Blood pressures have improved. Patient is currently alert and oriented 3. Patient states that she did have a bowel movement last night. Patient is currently on a regular diet. At this time patient denies chest pain or shortness of breath. Patient denies nausea vomiting or diarrhea. Patient denies any urinary burning or frequency. On 03/05/2018 patient episode of emesis last night. Surgical services updated per nursing staff. NG placed to LIS and CT of abdomen has been ordered. At this time patient states nausea has subsided. Does still complain of some abdominal pain. Does state she is having bowel movements. Denies any chest pain or shortness breath. Denies any urinary burning. Objective - Vital Signs Vital signs: Vital Signs Temp 97.8 F 03/05/18 05:00 Pulse 98 03/05/18 05:00 Resp 16 03/05/18 05:00 BP 132/72 03/05/18 05:00 Pulse Ox 99 03/05/18 05:00 Intake & Output 03/04/18 03/05/18 03/05/18 18:59 06:59 18:59 Intake Total 350 900 Output Total 10 5 202 Balance 340 895 -202 Weight 89 kg 89 kg Intake: IV 50 900 Lactated Ringers 1,000 ml 900 @ 150 mls/hr IV .Q6H40M [facility] Rx#:[id number] Piperacillin-Tazobactam 3 50 .375 gm In Dextrose/Water 1 50ml.bag @ 12.5 mls/hr IVPB Q8H [facility] Rx#: [id number] Intake, IV Titration 300 Amount Lactated Ringers 1,000 ml 300 @ 0 mls/hr IV .[facility] Rx#:[id number] Output: Drainage 5 2 Anterior Abdomen 5 2 Urine 200 Emesis 10 Other: Voiding Method Toilet Toilet Bedside Commode Bedside Commode # Voids 4 2 1 # Bowel Movements 2 1 - Exam Head normocephalic Neck supple Lungs clear to auscultation bilaterally no wheezing or crackles Heart regular rate and rhythm S1-S2, no rub or gallop Abdomen is soft with tenderness in the epigastric and right upper quadrant area. Positive bowel sounds throughout. No hepato-splenomegaly. Surgical dressing clean dry and intact. BEBA in place right upper quadrant Extremities no edema Neuro alert and orientated to 3 - Labs CBC & Chem 7: 03/05/18 06:40 03/05/18 06:40 Labs: Abnormal Lab Results - Last 24 Hours (Table) 03/05/18 03/05/18 Range/Units 06:40 06:40 WBC 13.9 H (3.8-10.6) k/uL RBC 3.08 L (3.80-5.40) m/uL Hgb 9.5 L (11.4-16.0) gm/dL Hct 28.8 L (34.0-46.0) % Plt Count 499 H (150-450) k/uL Neutrophils # 12.2 H (1.3-7.7) k/uL Lymphocytes # 0.7 L (1.0-4.8) k/uL Calcium 7.8 L (8.4-10.2) mg/dL Total Protein 4.8 L (6.3-8.2) g/dL Albumin 2.2 L (3.5-5.0) g/dL Microbiology - Last 24 Hours (Table) 02/27/18 16:13 Blood Culture - Preliminary Blood No Growth after 120 hours Assessment and Plan Assessment: #1 acute cholecystitis with cholelithiasis. Patient is postop day 2 status post Laprascopic cholecystectomy with Dr. Lopez. Postoperative Diagnosis of Purulent Cholecystitis. On 03/04 patient did have episode of emesis. per nursing staff surgical services was notified NG tube placed and CT of abdomen ordered. CT of abdomen completed showing new lower lobe pulmonary infiltrate and atelectasis new left small pleural effusion. Dilated stomach and small bowel is nonspecific. This could relate to severe ileus mechanical bowel obstruction. Dilated follows Compared to old exam. New subcutaneous edema around the abdomen. Surgical services following. Patient made nothing by mouth. #[address] 19[address] Light per infectious disease consulted. Patient receiving Zosyn for antibiotic. White blood cell 13.6. Blood culture showing no growth at this time #3 sepsis, with septic shock as evidenced by hypotension, leukocytosis, fever patient received multiple fluid boluses, with minimal improvement in her blood pressure she will be transferred to ICU critical care consult was requested. patient currently on Levophed for pressure support. Dr. Sexton per critical care following closely #4 possible urinary tract infection #5 underlying history of hypothyroidism #6 underlying history of gastroesophageal reflux disease #7. Elevated liver enzymes. GI consult has been placed for possible ERCP. Total bili decreasing to 1.0 AST 20, ALT 59 and alkaline phosphatase 124. Per GI services no plan for ERCP at this time #8. History of illicit drug use. Patient has history of cocaine and heroine abuse. #9. History of CVA/TIA #10. History of MRSA. Patient was positive for MRSA, no blood in December 2016 DVT prophylaxis heparin. GI prophylaxis Pepcid I performed an examination of the patient and discussed their management with the Nurse Practitioner. I have reviewed the Nurse Practitioner's notes and agree with the documented findings and plan of care
--- NOTE | 2018-03-05 12:45 | P.PN ---
Subjective Progress Note Date: 03/05/18 47-year-old female seen at bedside. Events noted during the night. Patient reportedly fell nauseated have an emesis vomiting greater than thousand according to nursing staff. Nasal gastric tube placed currently is connected to suction last several hours less than 100 output patient states less bloating with abdominal discomfort no nausea no vomiting. Has a BEBA drain in dark secretions noted scant amount surgical dressings dry abdomen soft with active bowel tones patient stated having several episodes of loose stools during the night CAT scan abdomen and pelvis obtained on March 04 report stomach and small bowel dilated likely related to severe ileus Laparoscopic cholecystectomy done March 01 for purlent acute cholecystitis Objective - Vital Signs Vital signs: Vital Signs Temp 97.8 F 03/05/18 05:00 Pulse 98 03/05/18 05:00 Resp 16 03/05/18 05:00 BP 132/72 03/05/18 05:00 Pulse Ox 99 03/05/18 05:00 Intake & Output 03/04/18 03/05/18 03/05/18 18:59 06:59 18:59 Intake Total 350 900 Output Total 10 5 202 Balance 340 895 -202 Weight 89 kg 89 kg Intake: IV 50 900 Lactated Ringers 1,000 ml 900 @ 150 mls/hr IV .Q6H40M [facility] Rx#:[id number] Piperacillin-Tazobactam 3 50 .375 gm In Dextrose/Water 1 50ml.bag @ 12.5 mls/hr IVPB Q8H [facility] Rx#: [id number] Intake, IV Titration 300 Amount Lactated Ringers 1,000 ml 300 @ 0 mls/hr IV .STK-MED [facility] Rx#:[id number] Output: Drainage 5 2 Anterior Abdomen 5 2 Urine 200 Emesis 10 Other: Voiding Method Toilet Toilet Bedside Commode Bedside Commode # Voids 4 2 1 # Bowel Movements 2 1 - Exam Physical exam 38-year-old female up ambulating with standby assist gait steady nasal gastric tube clamped Lungs adequate air movement on room air no shortness of breath Heart S1-S2 audible regular Abdomen BEAB drain in place scant amount of dark secretions noted surgical dressings dry soft states less bloating passing gas and having frequent loose soft brown stools urinating no difficulty nasal gastric tube to suction brownish secretions noted in the canister active bowel tones Extremity no edema - Labs CBC & Chem 7: 03/05/18 06:40 03/05/18 06:40 Labs: Abnormal Lab Results - Last 24 Hours (Table) 03/05/18 03/05/18 Range/Units 06:40 06:40 WBC 13.9 H (3.8-10.6) k/uL RBC 3.08 L (3.80-5.40) m/uL Hgb 9.5 L (11.4-16.0) gm/dL Hct 28.8 L (34.0-46.0) % Plt Count 499 H (150-450) k/uL Neutrophils # 12.2 H (1.3-7.7) k/uL Lymphocytes # 0.7 L (1.0-4.8) k/uL Calcium 7.8 L (8.4-10.2) mg/dL Total Protein 4.8 L (6.3-8.2) g/dL Albumin 2.2 L (3.5-5.0) g/dL Microbiology - Last 24 Hours (Table) 02/27/18 16:13 Blood Culture - Preliminary Blood No Growth after 120 hours Assessment and Plan Assessment: Impression acute cholecystitis with cholelithiasis Postop March 01 laparoscopic cholecystectomy for purlent cholecystitis Present on admission sepsis with septic shock as evident by hypotension, leukocytosis febrile History of illicit drug use prior cocaine and heroin abuse Elevated liver enzymes improving Postop expected ileus nasal gastric tube applied resolving Plan Send stool for C. diff Ambulate patient at least 4 times in 24 hours Clamped nasogastric tube or hours observed residual Increase activity Continue postop surgical care Monitor labs IV antibiotics ordered Zosyn Pain control DVT and GI prophylaxis Decrease pain medication The above impression and plan of care have been discussed and directed by signing physician. Vero Hernandez nurse practitioner acting as scribe for signing physician.
[2018-03-06] MEDS: GABAPENTIN 300 MG CAP PO SCH ×6 (01:36→22:05)
[2018-03-06] MEDS: PIPERACILLIN-TAZOBACTAM 3.375 GM in DEXTROSE/WATER 1 50ML.BAG IVPB SCH ×3 (01:36→17:29)
[2018-03-06] MEDS: LEVOTHYROXINE 100 MCG TAB PO SCH (06:29)
[2018-03-06 08:16] LABS: Basophils # (A) 0.1 k/uL (0-0.2); Basophils % (A) 0 %; Eosinophils # (A) 0.3 k/uL (0-0.7); Eosinophils % (A) 2 %; HGB 8.8 gm/dL (11.4-16.0); Lymphocytes % (A) 7 %; MCH 31.4 pg (25.0-35.0); MCHC 33.8 g/dL (31.0-37.0); MCV 93.2 fL (80.0-100.0); Mean Platelet Volume 6.9; Monocytes # (A) 0.7 k/uL (0-1.0); Monocytes % (A) 5 %; Neutrophils # (A) 10.6 k/uL (1.3-7.7); Neutrophils % (A) 82 %; Platelet Count 543 k/uL (150-450); RBC 2.79 m/uL (3.80-5.40); RDW 13.2 % (11.5-15.5)
[2018-03-06 08:25] LABS: ALT 23 U/L (9-52); AST 15 U/L (14-36); Albumin 2.1 g/dL (3.5-5.0); Alkaline Phosphatase 91 U/L (38-126); Anion Gap 7 mmol/L; Blood Urea Nitrogen 5 mg/dL (7-17); Calcium 7.7 mg/dL (8.4-10.2); Carbon Dioxide 26 mmol/L (22-30); Chloride 109 mmol/L (98-107); Glucose 102 mg/dL (74-99); Potassium 3.6 mmol/L (3.5-5.1); Sodium 142 mmol/L (137-145); Total Bilirubin 0.6 mg/dL (0.2-1.3); Total Protein 4.6 g/dL (6.3-8.2)
[2018-03-06] MEDS: HEPARIN SODIUM,PORCINE 5,000 UNIT/ML 1 ML VIAL SQ SCH ×2 (08:47→15:38)
[2018-03-06] MEDS: BACLOFEN 10 MG TAB PO SCH ×3 (08:47→22:05)
[2018-03-06] MEDS: DOCUSATE 100 MG CAP PO SCH (08:47)
[2018-03-06] MEDS: PYRIDOXINE 50 MG TAB PO SCH (08:47)
[2018-03-06] MEDS: PANTOPRAZOLE 40 MG/10 ML VIAL IVP SCH (08:47)
[2018-03-06] MEDS: FOLIC ACID 1 MG TAB PO SCH (08:47)
[2018-03-06] MEDS: OXYBUTYNIN CHLORIDE 5 MG TAB PO SCH ×3 (08:47→22:05)
[2018-03-06] MEDS: LACTATED RINGERS 1,000 ML IV SCH ×3 (08:49→23:31)
[2018-03-06] MEDS: IBUPROFEN 600 MG TAB PO PRN ×2 (12:07→22:04)
--- NOTE | 2018-03-06 14:55 | P.PN ---
Subjective Progress Note Date: 03/06/18 HISTORY OF PRESENT ILLNESS: The patient is a 47-year-old female presented with severe ileus. She is status post cholecystectomy. Yesterday nasogastric tube was discontinued. Her pain is well-controlled. She is ambulating. She is tolerating some diet. PHYSICAL EXAM: GENERAL: Well-developed in no distress. HEENT: Extraocular movements grossly intact. Hears conversational speech. No nasal drainage. NECK: Supple without lymphadenopathy. CHEST: Nonlabored respirations with equal bilateral excursions. CARDIOVASCULAR: Regular rate and regular rhythm. Distal 2+ pulses. ABDOMEN: No peritonitis. Nontender. MUSCULOSKELETAL: No clubbing, cyanosis, or edema. Gross strength 5/5 distal lower extremities. NEURO: No focal or lateralizing signs. Cranial nerves 2 through 12 grossly within normal limits. PSYCH: Appropriate affect. Alert and oriented to person, place and time. SKIN: Good skin turgor. Well perfused. Mild jaundice ASSESSMENT: 1. History of severe abdominal ileus 2. Leukocytosis 3. Status post cholecystectomy PLAN: 1. Continue hospitalization as she is less than 24 hours of improvement of ileus. 2. Continue IV antibiotics as she still has persistent leukocytosis 3. Recommend follow of comprehensive metabolic panel Objective - Vital Signs Vital signs: Vital Signs Temp 97 F L 03/06/18 05:00 Pulse 96 03/06/18 05:00 Resp 18 03/06/18 05:00 BP 114/66 03/06/18 05:00 Pulse Ox 95 03/06/18 05:00 Intake & Output 03/05/18 03/06/18 03/06/18 18:59 06:59 18:59 Intake Total 1800 880 Output Total 708 370 Balance 1092 510 Weight 89 kg 89 kg Intake: IV 300 Lactated Ringers 1,000 ml 300 @ 150 mls/hr IV .Q6H40M [facility] Rx#:[id number] Intake, IV Titration 1800 Amount Lactated Ringers 1,000 ml 1800 @ 150 mls/hr IV .Q6H40M [facility] Rx#:[id number] Oral 0 580 Output: Drainage 308 170 Anterior Abdomen 8 20 Right 300 150 Urine 400 200 Other: Voiding Method Bedside Commode Toilet # Voids 4 2 # Bowel Movements 4 - Labs CBC & Chem 7: 03/06/18 07:30 03/06/18 07:30 Labs: Abnormal Lab Results - Last 24 Hours (Table) 03/06/18 03/06/18 Range/Units 07:30 07:30 WBC 13.0 H (3.8-10.6) k/uL RBC 2.79 L (3.80-5.40) m/uL Hgb 8.8 L (11.4-16.0) gm/dL Hct 26.0 L (34.0-46.0) % Plt Count 543 H (150-450) k/uL Neutrophils # 10.6 H (1.3-7.7) k/uL Chloride 109 H (98-107) mmol/L BUN 5 L (7-17) mg/dL Glucose 102 H (74-99) mg/dL Calcium 7.7 L (8.4-10.2) mg/dL Total Protein 4.6 L (6.3-8.2) g/dL Albumin 2.1 L (3.5-5.0) g/dL Microbiology - Last 24 Hours (Table) 02/27/18 16:13 Blood Culture - Final Blood No Growth after 144 hours
--- NOTE | 2018-03-06 15:50 | P.PN ---
Subjective Progress Note Date: 03/06/18 Patient is a 47 year old female who presented to [facility] emergency room the chief complaint of abdominal pain patient describes a severe pain in the epigastric area that started about 12 hours prior to presentation she was evaluated in the emergency room she had a computed tomography scan of the abdomen and pelvis and ultrasound of the abdomen off were suggestive of cholecystitis patient also had leukocytosis and low-grade fever he was started on IV antibiotic Zosyn and admitted to medical floor surgical consultation was requested. During this admission patient had low blood pressure and required IV fluid boluses. On 03/01/2018 patient is currently in the intensive care unit requiring Levophed for pressure support. Per nursing staff patient. Planning for laparoscopic cholecystectomy with Dr. Lopez today. Patient states she is still having severe upper abdominal pain. This time. Patient denies chest pain or shortness breath. Dr. Sexton Per critical care service is following closely. Dr. Light consulted for infectious disease. On 03/02/2018 patient remains in the intensive care unit on levophed for pressure support. Patient is currently alert and oriented 3. Patient status post laparoscopic cholecystectomy with Dr. Lopez yesterday. At this time patient denies chest pain or shortness breath.. Denies any urinary burning or frequency On 03/03/2018 patient remains in the intensive care unit. Patient is currently alert and oriented 3. Patient does state she is feeling improved. Patient remains on pressors. This time patient denies chest pain or shortness of breath. Patient does state she is passing gas but has not had a bowel movement. Patient denies any nausea vomiting or diarrhea. Patient denies any urinary burning or frequency On 03/04/2018 patient has been moved out of the intensive care unit. Blood pressures have improved. Patient is currently alert and oriented 3. Patient states that she did have a bowel movement last night. Patient is currently on a regular diet. At this time patient denies chest pain or shortness of breath. Patient denies nausea vomiting or diarrhea. Patient denies any urinary burning or frequency. On 03/05/2018 patient episode of emesis last night. Surgical services updated per nursing staff. NG placed to LIS and CT of abdomen has been ordered. At this time patient states nausea has subsided. Does still complain of some abdominal pain. Does state she is having bowel movements. Denies any chest pain or shortness breath. Denies any urinary burning. On 03/06/2018 patient is alert and oriented 3 in no apparent distress she denies any abdominal pain she states she is having bowel movements there is no new episodes of vomiting however white blood count is still elevated there is some abdominal tenderness with palpation Objective - Vital Signs Vital signs: Vital Signs Temp 98.9 F 03/06/18 13:00 Pulse 88 03/06/18 13:00 Resp 17 03/06/18 13:00 BP 102/56 03/06/18 13:00 Pulse Ox 96 03/06/18 13:00 Intake & Output 03/05/18 03/06/18 03/06/18 18:59 06:59 18:59 Intake Total 3726 288 0162 Output Total 708 370 Balance 2250 846 7285 Weight 89 kg 89 kg Intake: IV 300 1250 Lactated Ringers 1,000 ml 300 1200 @ 150 mls/hr IV .Q6H40M [facility] Rx#:[id number] Piperacillin-Tazobactam 3 50 .375 gm In Dextrose/Water 1 50ml.bag @ 12.5 mls/hr IVPB Q8H [facility] Rx#: [id number] Intake, IV Titration 1800 Amount Lactated Ringers 1,000 ml 1800 @ 150 mls/hr IV .Q6H40M [facility] Rx#:[id number] Oral 0 580 Output: Drainage 308 170 Anterior Abdomen 8 20 Right 300 150 Urine 400 200 Other: Voiding Method Bedside Commode Toilet # Voids 4 2 # Bowel Movements 4 2 - Exam Head normocephalic and atraumatic Neck supple no JVD no goiter Lungs clear to auscultation bilaterally no wheezing or crackles Heart regular rate and rhythm S1-S2, no rub or gallop Abdomen is soft with tenderness in the epigasric and RUQ positive bowel sounds no hepatosplenomegaly Extremities no edema no cyanosis or clubbing Neuro alert and orientated to 3 - Labs CBC & Chem 7: 03/06/18 07:30 03/06/18 07:30 Labs: Abnormal Lab Results - Last 24 Hours (Table) 03/06/18 03/06/18 Range/Units 07:30 07:30 WBC 13.0 H (3.8-10.6) k/uL RBC 2.79 L (3.80-5.40) m/uL Hgb 8.8 L (11.4-16.0) gm/dL Hct 26.0 L (34.0-46.0) % Plt Count 543 H (150-450) k/uL Neutrophils # 10.6 H (1.3-7.7) k/uL Chloride 109 H (98-107) mmol/L BUN 5 L (7-17) mg/dL Glucose 102 H (74-99) mg/dL Calcium 7.7 L (8.4-10.2) mg/dL Total Protein 4.6 L (6.3-8.2) g/dL Albumin 2.1 L (3.5-5.0) g/dL Microbiology - Last 24 Hours (Table) 02/27/18 16:13 Blood Culture - Final Blood No Growth after 144 hours Assessment and Plan Plan: #1 acute cholecystitis with cholelithiasis. Patient is postop day 2 status post Laprascopic cholecystectomy with Dr. Lopez. Postoperative Diagnosis of Purulent Cholecystitis. On 03/04 patient did have episode of emesis. per nursing staff surgical services was notified NG tube placed and CT of abdomen ordered. CT of abdomen completed showing new lower lobe pulmonary infiltrate and atelectasis new left small pleural effusion. Dilated stomach and small bowel is nonspecific. This could relate to severe ileus mechanical bowel obstruction. Dilated follows Compared to old exam. New subcutaneous edema around the abdomen. Surgical services following. Patient made nothing by mouth. #[address] Light per infectious disease consulted. Patient receiving Zosyn for antibiotic. White blood cell 13.6. Blood culture showing no growth at this time #3 sepsis, with septic shock as evidenced by hypotension, leukocytosis, fever patient received multiple fluid boluses, with minimal improvement in her blood pressure she will be transferred to ICU critical care consult was requested. patient currently on Levophed for pressure support. Dr. Sexton per critical care following closely #4 possible urinary tract infection #5 underlying history of hypothyroidism #6 underlying history of gastroesophageal reflux disease #7. Elevated liver enzymes. GI consult has been placed for possible ERCP. Total bili decreasing to 1.0 AST 20, ALT 59 and alkaline phosphatase 124. Per GI services no plan for ERCP at this time #8. History of illicit drug use. Patient has history of cocaine and heroine abuse. #9. History of CVA/TIA #10. History of MRSA. Patient was positive for MRSA, no blood in December 2016 DVT prophylaxis heparin. GI prophylaxis Pepcid Continue with current management patient is still on IV antibiotic she still has leukocytosis will recheck labs in a.m.
[2018-03-07] MEDS: HEPARIN SODIUM,PORCINE 5,000 UNIT/ML 1 ML VIAL SQ SCH ×3 (00:20→16:12)
[2018-03-07] MEDS: PIPERACILLIN-TAZOBACTAM 3.375 GM in DEXTROSE/WATER 1 50ML.BAG IVPB SCH ×3 (03:11→17:48)
[2018-03-07] MEDS: GABAPENTIN 300 MG CAP PO SCH ×6 (03:11→22:01)
[2018-03-07] MEDS: LEVOTHYROXINE 100 MCG TAB PO SCH (07:05)
[2018-03-07 07:34] LABS: Basophils # (A) 0.1 k/uL (0-0.2); Basophils % (A) 1 %; Eosinophils # (A) 0.3 k/uL (0-0.7); Eosinophils % (A) 3 %; HCT 27.5 % (34.0-46.0); HGB 9.1 gm/dL (11.4-16.0); Lymphocytes # (A) 1.4 k/uL (1.0-4.8); Lymphocytes % (A) 13 %; MCH 30.8 pg (25.0-35.0); MCHC 33.1 g/dL (31.0-37.0); Mean Platelet Volume 6.8; Monocytes # (A) 0.6 k/uL (0-1.0); Monocytes % (A) 5 %; Neutrophils # (A) 7.9 k/uL (1.3-7.7); Neutrophils % (A) 73 %; Platelet Count 621 k/uL (150-450); RBC 2.96 m/uL (3.80-5.40); RDW 13.5 % (11.5-15.5); WBC 10.8 k/uL (3.8-10.6)
[2018-03-07 07:45] LABS: ALT 22 U/L (9-52); AST 16 U/L (14-36); Albumin 2.2 g/dL (3.5-5.0); Alkaline Phosphatase 80 U/L (38-126); Anion Gap 6 mmol/L; Blood Urea Nitrogen 5 mg/dL (7-17); Calcium 7.8 mg/dL (8.4-10.2); Carbon Dioxide 25 mmol/L (22-30); Chloride 110 mmol/L (98-107); Glucose 92 mg/dL (74-99); Potassium 3.6 mmol/L (3.5-5.1); Sodium 141 mmol/L (137-145); Total Bilirubin 0.5 mg/dL (0.2-1.3)
[2018-03-07] MEDS: OXYBUTYNIN CHLORIDE 5 MG TAB PO SCH ×3 (08:48→22:00)
[2018-03-07] MEDS: PYRIDOXINE 50 MG TAB PO SCH (08:48)
[2018-03-07] MEDS: DOCUSATE 100 MG CAP PO SCH (08:49)
[2018-03-07] MEDS: BACLOFEN 10 MG TAB PO SCH ×3 (08:49→22:01)
[2018-03-07] MEDS: LACTATED RINGERS 1,000 ML IV SCH ×3 (08:49→16:12)
[2018-03-07] MEDS: FOLIC ACID 1 MG TAB PO SCH (08:49)
[2018-03-07] MEDS: PANTOPRAZOLE 40 MG/10 ML VIAL IVP SCH (08:49)
--- NOTE | 2018-03-07 12:18 | P.PN ---
Subjective Progress Note Date: 03/07/18 HISTORY OF PRESENT ILLNESS: The patient is a 47-year-old female presented with severe ileus. She is status post cholecystectomy. She reports chronic diarrhea at least 4-5 times daily. She complains of increased swelling of the bilateral lower legs. She reports intermittent epigastric abdominal pain. She does feel better than yesterday however. PHYSICAL EXAM: GENERAL: Well-developed in no distress. HEENT: No sclera icterus. Extraocular movements grossly intact. Hears conversational speech. No nasal drainage. NECK: Supple without lymphadenopathy. CHEST: Nonlabored respirations with equal bilateral excursions. CARDIOVASCULAR: Regular rate and regular rhythm. Distal 2+ pulses. ABDOMEN: No peritonitis. Tender epigastrium. MUSCULOSKELETAL: No clubbing, cyanosis. 2+ edema NEURO: No focal or lateralizing signs. Cranial nerves 2 through 12 grossly within normal limits. PSYCH: Appropriate affect. Alert and oriented to person, place and time. SKIN: Good skin turgor. Well perfused. ASSESSMENT: 1. History of severe abdominal ileus 2. Leukocytosis 3. Status post cholecystectomy 4. Chronic diarrhea PLAN: 1. She still has leukocytosis and thrombocytosis continues to increase. 2. Clinically, patient may be safe for discharge once with blood cell count is normalized. 3. She has chronic diarrhea and may benefit from repeat C. diff sample Objective - Vital Signs Vital signs: Vital Signs Temp 97.6 F 03/07/18 05:00 Pulse 87 03/07/18 05:00 Resp 16 03/07/18 05:00 BP 121/65 03/07/18 05:00 Pulse Ox 93 L 03/07/18 05:00 Intake & Output 03/06/18 03/07/18 03/07/18 18:59 06:59 18:59 Intake Total 1250 1470 Balance 1250 1470 Intake: IV 1250 50 Lactated Ringers 1,000 ml 1200 @ 150 mls/hr IV .Q6H40M [facility] Rx#:[id number] Piperacillin-Tazobactam 3 50 50 .375 gm In Dextrose/Water 1 50ml.bag @ 12.5 mls/hr IVPB Q8H [facility] Rx#: [id number] Intake, IV Titration 40 Amount Lactated Ringers 1,000 ml 40 @ 0 mls/hr IV .[facility] Rx#:[id number] Oral 1380 Other: Voiding Method Toilet # Voids 4 # Bowel Movements 2 - Labs CBC & Chem 7: 03/07/18 07:09 03/07/18 07:09 Labs: Abnormal Lab Results - Last 24 Hours (Table) 03/07/18 03/07/18 Range/Units 07:09 07:09 WBC 10.8 H (3.8-10.6) k/uL RBC 2.96 L (3.80-5.40) m/uL Hgb 9.1 L (11.4-16.0) gm/dL Hct 27.5 L (34.0-46.0) % Plt Count 621 H (150-450) k/uL Neutrophils # 7.9 H (1.3-7.7) k/uL Chloride 110 H (98-107) mmol/L BUN 5 L (7-17) mg/dL Calcium 7.8 L (8.4-10.2) mg/dL Total Protein 5.0 L (6.3-8.2) g/dL Albumin 2.2 L (3.5-5.0) g/dL
[2018-03-07] MEDS: IBUPROFEN 600 MG TAB PO PRN ×2 (14:20→22:00)
--- NOTE | 2018-03-07 15:04 | P.PN ---
Subjective Progress Note Date: 03/07/18 Patient is a 47 year old female who presented to [facility] emergency room the chief complaint of abdominal pain patient describes a severe pain in the epigastric area that started about 12 hours prior to presentation she was evaluated in the emergency room she had a computed tomography scan of the abdomen and pelvis and ultrasound of the abdomen off were suggestive of cholecystitis patient also had leukocytosis and low-grade fever he was started on IV antibiotic Zosyn and admitted to medical floor surgical consultation was requested. During this admission patient had low blood pressure and required IV fluid boluses. On 03/01/2018 patient is currently in the intensive care unit requiring Levophed for pressure support. Per nursing staff patient. Planning for laparoscopic cholecystectomy with Dr. Lopez today. Patient states she is still having severe upper abdominal pain. This time. Patient denies chest pain or shortness breath. Dr. Sexton Per critical care service is following closely. Dr. Light consulted for infectious disease. On 03/02/2018 patient remains in the intensive care unit on levophed for pressure support. Patient is currently alert and oriented 3. Patient status post laparoscopic cholecystectomy with Dr. Lopez yesterday. At this time patient denies chest pain or shortness breath.. Denies any urinary burning or frequency On 03/03/2018 patient remains in the intensive care unit. Patient is currently alert and oriented 3. Patient does state she is feeling improved. Patient remains on pressors. This time patient denies chest pain or shortness of breath. Patient does state she is passing gas but has not had a bowel movement. Patient denies any nausea vomiting or diarrhea. Patient denies any urinary burning or frequency On 03/04/2018 patient has been moved out of the intensive care unit. Blood pressures have improved. Patient is currently alert and oriented 3. Patient states that she did have a bowel movement last night. Patient is currently on a regular diet. At this time patient denies chest pain or shortness of breath. Patient denies nausea vomiting or diarrhea. Patient denies any urinary burning or frequency. On 03/05/2018 patient episode of emesis last night. Surgical services updated per nursing staff. NG placed to LIS and CT of abdomen has been ordered. At this time patient states nausea has subsided. Does still complain of some abdominal pain. Does state she is having bowel movements. Denies any chest pain or shortness breath. Denies any urinary burning. On 03/06/2018 patient is alert and oriented 3 in no apparent distress she denies any abdominal pain she states she is having bowel movements there is no new episodes of vomiting however white blood count is still elevated there is some abdominal tenderness with palpation On 03/07/2018 patient was seen and examined she is alert and oriented 3 she is complaining of abdominal discomfort she is complaining of multiple episodes of diarrhea otherwise she denies any complaints there is no fever or chills no headache no dizziness no chest pain no shortness of breath no cough and no urinary symptoms. Objective - Vital Signs Vital signs: Vital Signs Temp 97.6 F 03/07/18 05:00 Pulse 87 03/07/18 05:00 Resp 16 03/07/18 05:00 BP 121/65 03/07/18 05:00 Pulse Ox 93 L 03/07/18 05:00 Intake & Output 03/06/18 03/07/18 03/07/18 18:59 06:59 18:59 Intake Total 1250 1470 Balance 1250 1470 Intake: IV 1250 50 Lactated Ringers 1,000 ml 1200 @ 150 mls/hr IV .Q6H40M [facility] Rx#:[id number] Piperacillin-Tazobactam 3 50 50 .375 gm In Dextrose/Water 1 50ml.bag @ 12.5 mls/hr IVPB Q8H [facility] Rx#: [id number] Intake, IV Titration 40 Amount Lactated Ringers 1,000 ml 40 @ 0 mls/hr IV .[facility] Rx#:[id number] Oral 1380 Other: Voiding Method Toilet # Voids 4 # Bowel Movements 2 - Exam Head normocephalic and atraumatic Neck supple no JVD no goiter Lungs clear to auscultation bilaterally no wheezing or crackles Heart regular rate and rhythm S1-S2, no rub or gallop Abdomen is soft with tenderness in the epigasric and RUQ positive bowel sounds no hepatosplenomegaly Extremities no edema no cyanosis or clubbing Neuro alert and orientated to 3 - Labs CBC & Chem 7: 03/07/18 07:09 03/07/18 07:09 Labs: Abnormal Lab Results - Last 24 Hours (Table) 03/07/18 03/07/18 Range/Units 07:09 07:09 WBC 10.8 H (3.8-10.6) k/uL RBC 2.96 L (3.80-5.40) m/uL Hgb 9.1 L (11.4-16.0) gm/dL Hct 27.5 L (34.0-46.0) % Plt Count 621 H (150-450) k/uL Neutrophils # 7.9 H (1.3-7.7) k/uL Chloride 110 H (98-107) mmol/L BUN 5 L (7-17) mg/dL Calcium 7.8 L (8.4-10.2) mg/dL Total Protein 5.0 L (6.3-8.2) g/dL Albumin 2.2 L (3.5-5.0) g/dL Assessment and Plan Plan: #1 acute cholecystitis with cholelithiasis. Patient is postop day 2 status post Laprascopic cholecystectomy with Dr. Lopez. Postoperative Diagnosis of Purulent Cholecystitis. On 03/04 patient did have episode of emesis. per nursing staff surgical services was notified NG tube placed and CT of abdomen ordered. CT of abdomen completed showing new lower lobe pulmonary infiltrate and atelectasis new left small pleural effusion. Dilated stomach and small bowel is nonspecific. This could relate to severe ileus mechanical bowel obstruction. Dilated follows Compared to old exam. New subcutaneous edema around the abdomen. Surgical services following. Patient made nothing by mouth. #2 leukocytosis[address] WBC 19[address]. [address] Light per infectious disease consulted. Patient receiving Zosyn for antibiotic. White blood cell 13.6. Blood culture showing no growth at this time at this time white blood count has improved to 10.8, patient has developed worsening diarrhea, will recheck stool sample for C. diff #3 sepsis, with septic shock as evidenced by hypotension, leukocytosis, fever patient received multiple fluid boluses, with minimal improvement in her blood pressure she will be transferred to ICU critical care consult was requested. patient currently on Levophed for pressure support. Dr. Sexton per critical care following closely #4 possible urinary tract infection #5 underlying history of hypothyroidism #6 underlying history of gastroesophageal reflux disease #7. Elevated liver enzymes. GI consult has been placed for possible ERCP. Total bili decreasing to 1.0 AST 20, ALT 59 and alkaline phosphatase 124. Per GI services no plan for ERCP at this time #8. History of illicit drug use. Patient has history of cocaine and heroine abuse. #9. History of CVA/TIA #10. History of MRSA. Patient was positive for MRSA, no blood in December 2016 DVT prophylaxis heparin. GI prophylaxis Pepcid Continue with current management patient is still on IV antibiotic she still has leukocytosis will recheck labs in a.m.
[2018-03-08] MEDS: HEPARIN SODIUM,PORCINE 5,000 UNIT/ML 1 ML VIAL SQ SCH ×3 (00:20→17:14)
[2018-03-08] MEDS: GABAPENTIN 300 MG CAP PO SCH ×6 (02:06→22:19)
[2018-03-08] MEDS: PIPERACILLIN-TAZOBACTAM 3.375 GM in DEXTROSE/WATER 1 50ML.BAG IVPB SCH ×3 (02:08→18:12)
[2018-03-08] MEDS: IBUPROFEN 600 MG TAB PO PRN ×2 (06:03→17:05)
[2018-03-08] MEDS: LEVOTHYROXINE 100 MCG TAB PO SCH (06:04)
[2018-03-08 07:18] LABS: Basophils # (A) 0.1 k/uL (0-0.2); Basophils % (A) 1 %; Eosinophils # (A) 0.4 k/uL (0-0.7); Eosinophils % (A) 3 %; HCT 28.3 % (34.0-46.0); HGB 9.4 gm/dL (11.4-16.0); Lymphocytes # (A) 1.8 k/uL (1.0-4.8); Lymphocytes % (A) 16 %; MCH 30.8 pg (25.0-35.0); MCHC 33.3 g/dL (31.0-37.0); MCV 92.6 fL (80.0-100.0); Mean Platelet Volume 6.5; Monocytes # (A) 0.6 k/uL (0-1.0); Monocytes % (A) 5 %; Neutrophils # (A) 7.8 k/uL (1.3-7.7); Neutrophils % (A) 71 %; Platelet Count 721 k/uL (150-450); RBC 3.05 m/uL (3.80-5.40); RDW 13.6 % (11.5-15.5)
[2018-03-08 07:32] LABS: ALT 20 U/L (9-52); AST 17 U/L (14-36); Albumin 2.4 g/dL (3.5-5.0); Alkaline Phosphatase 75 U/L (38-126); Anion Gap 6 mmol/L; Blood Urea Nitrogen 5 mg/dL (7-17); Carbon Dioxide 25 mmol/L (22-30); Chloride 109 mmol/L (98-107); Glucose 91 mg/dL (74-99); Sodium 140 mmol/L (137-145); Total Bilirubin 0.5 mg/dL (0.2-1.3); Total Protein 5.2 g/dL (6.3-8.2)
[2018-03-08] MEDS: LACTATED RINGERS 1,000 ML IV SCH ×2 (09:34→09:46)
[2018-03-08] MEDS: PANTOPRAZOLE 40 MG/10 ML VIAL IVP SCH (09:39)
[2018-03-08] MEDS: DOCUSATE 100 MG CAP PO SCH (09:44)
[2018-03-08] MEDS: BACLOFEN 10 MG TAB PO SCH ×3 (09:44→22:18)
[2018-03-08] MEDS: PYRIDOXINE 50 MG TAB PO SCH (09:45)
[2018-03-08] MEDS: OXYBUTYNIN CHLORIDE 5 MG TAB PO SCH ×3 (09:45→22:19)
[2018-03-08] MEDS: FOLIC ACID 1 MG TAB PO SCH (09:45)
--- NOTE | 2018-03-08 15:07 | P.PN ---
Subjective Progress Note Date: 03/08/18 Patient is a 47 year old female who presented to [facility] emergency room the chief complaint of abdominal pain patient describes a severe pain in the epigastric area that started about 12 hours prior to presentation she was evaluated in the emergency room she had a computed tomography scan of the abdomen and pelvis and ultrasound of the abdomen off were suggestive of cholecystitis patient also had leukocytosis and low-grade fever he was started on IV antibiotic Zosyn and admitted to medical floor surgical consultation was requested. During this admission patient had low blood pressure and required IV fluid boluses. On 03/01/2018 patient is currently in the intensive care unit requiring Levophed for pressure support. Per nursing staff patient. Planning for laparoscopic cholecystectomy with Dr. Lopez today. Patient states she is still having severe upper abdominal pain. This time. Patient denies chest pain or shortness breath. Dr. Sexton Per critical care service is following closely. Dr. Light consulted for infectious disease. On 03/02/2018 patient remains in the intensive care unit on levophed for pressure support. Patient is currently alert and oriented 3. Patient status post laparoscopic cholecystectomy with Dr. Lopez yesterday. At this time patient denies chest pain or shortness breath.. Denies any urinary burning or frequency On 03/03/2018 patient remains in the intensive care unit. Patient is currently alert and oriented 3. Patient does state she is feeling improved. Patient remains on pressors. This time patient denies chest pain or shortness of breath. Patient does state she is passing gas but has not had a bowel movement. Patient denies any nausea vomiting or diarrhea. Patient denies any urinary burning or frequency On 03/04/2018 patient has been moved out of the intensive care unit. Blood pressures have improved. Patient is currently alert and oriented 3. Patient states that she did have a bowel movement last night. Patient is currently on a regular diet. At this time patient denies chest pain or shortness of breath. Patient denies nausea vomiting or diarrhea. Patient denies any urinary burning or frequency. On 03/05/2018 patient episode of emesis last night. Surgical services updated per nursing staff. NG placed to LIS and CT of abdomen has been ordered. At this time patient states nausea has subsided. Does still complain of some abdominal pain. Does state she is having bowel movements. Denies any chest pain or shortness breath. Denies any urinary burning. On 03/06/2018 patient is alert and oriented 3 in no apparent distress she denies any abdominal pain she states she is having bowel movements there is no new episodes of vomiting however white blood count is still elevated there is some abdominal tenderness with palpation On 03/07/2018 patient was seen and examined she is alert and oriented 3 she is complaining of abdominal discomfort she is complaining of multiple episodes of diarrhea otherwise she denies any complaints there is no fever or chills no headache no dizziness no chest pain no shortness of breath no cough and no urinary symptoms. 03/08/2018 patient is alert and oriented 3. Patient is eager to go home. Patient states she's been up walking the halls. Patient denies nausea vomiting or diarrhea. Patient denies any urinary symptoms. Patient denies chest pain or shortness breath. Discussed case with Dr. Lopez. Would like patient to stay 1 more day and possibly discharge home tomorrow. Objective - Vital Signs Vital signs: Vital Signs Temp 98.2 F 03/08/18 12:44 Pulse 80 03/08/18 12:44 Resp 20 03/08/18 12:44 BP 143/80 03/08/18 12:44 Pulse Ox 97 03/08/18 12:44 Intake & Output 03/07/18 03/08/18 03/08/18 18:59 06:59 18:59 Intake Total 1800 Output Total 30 5 Balance 1770 -5 Intake: Oral 1800 Output: Drainage 30 5 Anterior Abdomen 30 5 Other: Voiding Method Toilet # Voids 2 # Bowel Movements 1 1 - Exam Head normocephalic Neck supple Lungs clear to auscultation bilaterally no wheezing or crackles Heart regular rate and rhythm S1-S2, no rub or gallop Abdomen is soft with tenderness in the epigastric and right upper quadrant area. Positive bowel sounds throughout. No hepato-splenomegaly. Surgical dressing clean dry and intact. BEBA in place right upper quadrant Extremities no edema Neuro alert and orientated to 3 - Labs CBC & Chem 7: 03/08/18 07:03 03/08/18 07:03 Labs: Abnormal Lab Results - Last 24 Hours (Table) 03/08/18 03/08/18 Range/Units 07:03 07:03 WBC 11.0 H (3.8-10.6) k/uL RBC 3.05 L (3.80-5.40) m/uL Hgb 9.4 L (11.4-16.0) gm/dL Hct 28.3 L (34.0-46.0) % Plt Count 721 H (150-450) k/uL Neutrophils # 7.8 H (1.3-7.7) k/uL Chloride 109 H (98-107) mmol/L BUN 5 L (7-17) mg/dL Calcium 8.0 L (8.4-10.2) mg/dL Total Protein 5.2 L (6.3-8.2) g/dL Albumin 2.4 L (3.5-5.0) g/dL Assessment and Plan Assessment: #1 acute cholecystitis with cholelithiasis. Patient is postop day 2 status post Laprascopic cholecystectomy with Dr. Lopez. Postoperative Diagnosis of Purulent Cholecystitis. On 03/04 patient did have episode of emesis. per nursing staff surgical services was notified NG tube placed and CT of abdomen ordered. CT of abdomen completed showing new lower lobe pulmonary infiltrate and atelectasis new left small pleural effusion. Dilated stomach and small bowel is nonspecific. This could relate to severe ileus mechanical bowel obstruction. Dilated follows Compared to old exam. New subcutaneous edema around the abdomen. Surgical services following. patient has been tolerating regular diet. Discussed case with Dr. Cowan per surgical services would like patient able more day and possible discharge in a.m. tomorrow depending upon labs. #[address]BC 19.[address]. [address] Light per infectious disease consulted. Patient receiving Zosyn for antibiotic. White blood cell 13.6. Blood culture showing no growth at this time at this time white blood count has improved to 10.8, patient has developed worsening diarrhea, will recheck stool sample for C. diff. Discussed case with Dr. Light per infectious disease anticipate possible discharge in the next 24-48 hours. #3 sepsis, with septic shock as evidenced by hypotension, leukocytosis, fever patient received multiple fluid boluses, with minimal improvement in her blood pressure she will be transferred to ICU critical care consult was requested. patient currently on Levophed for pressure support. Dr. Sexton per critical care following closely. WBC 11.0 and platelet level of 721. A.m. labs have been ordered for morning #4 possible urinary tract infection #5 underlying history of hypothyroidism #6 underlying history of gastroesophageal reflux disease #7. Elevated liver enzymes. GI consult has been placed for possible ERCP. Total bili decreasing to 1.0 AST 20, ALT 59 and alkaline phosphatase 124. Per GI services no plan for ERCP at this time #8. History of illicit drug use. Patient has history of cocaine and heroine abuse. #9. History of CVA/TIA #10. History of MRSA. Patient was positive for MRSA, no blood in December 2016 DVT prophylaxis heparin. GI prophylaxis Pepcid I performed an examination of the patient and discussed their management with the Nurse Practitioner. I have reviewed the Nurse Practitioner's notes and agree with the documented findings and plan of care
--- NOTE | 2018-03-08 15:17 | P.PN ---
Progress Note - Text Progress Note Date: 03/08/18 The patient is doing well. She's had minimal output through BEBA drain. Her white count is stable in the 12 range. On exam her vital signs are stable. Her abdomen soft. Status post laparoscopic cholestatic for acute purulent cholecystitis. Patient continue receive IV antibiotic. She'll be discharged home in the a.m.
--- NOTE | 2018-03-08 20:36 | P.PN ---
Subjective Progress Note Date: 03/08/18 47-year-old female presents to emergency center with a several-day history of severe abdominal pain. She relates that the pain was epigastric in nature and despite multiple events to make it better such as soda bicarbonate water and antiacids she continue to feel poorly. She had nausea post-emesis she had no hematemesis. She had fever with chills and the pain continued to be severe 8 out of 10 in counseling presented to the emergency center. Imaging study with CAT scan was performed with concerns to acalculus cholecystitis however ultrasound reveals evidence of cholelithiasis and cholecystitis. She's been seen by surgery however there is evidence of significant change of her status in that she became more septic and had evidence of a marked increase of her total bilirubin and transaminases. As we concerned to obstructing stone and consult with gastroenterology has been placed. After their evaluation and possible ERCP, the patient will then have a laparoscopic cholecystectomy. At the moment she is feeling somewhat better she's having a clear liquid diet and is not having nausea or emesis and her pain is under much better control. She believes her fever and chills have improved although 101.3 fever earlier. 03/01/2018 reveals the patient to now be somewhat improved. She's been taking to the operating room and the laparoscopic cholecystectomy has occurred. Her pain is under modestly good control She has no other acute complaints at this time. She has mildly hypotensive after the procedure and is on a small amount of vasopressor. 03/08/2018 visit patient to be considerably improved. She looks forward to going home, hopefully tomorrow. We'll transition antibiotic therapy at that time to oral Augmentin to finish a course of antibiotics from her abdominal sepsis. Objective - Vital Signs Vital signs: Vital Signs Temp 98.2 F 03/08/18 20:10 Pulse 86 03/08/18 20:10 Resp 19 03/08/18 20:10 BP 106/82 03/08/18 20:10 Pulse Ox 97 03/08/18 20:10 Intake & Output 03/08/18 03/08/18 03/09/18 06:59 18:59 06:59 Intake Total 1800 Output Total 30 25 Balance 1770 -25 Intake: Oral 1800 Output: Drainage 30 25 Anterior Abdomen 30 25 Other: # Voids 2 # Bowel Movements 1 - Labs CBC & Chem 7: 03/08/18 07:03 03/08/18 07:03 Labs: Abnormal Lab Results - Last 24 Hours (Table) 03/08/18 03/08/18 Range/Units 07:03 07:03 WBC 11.0 H (3.8-10.6) k/uL RBC 3.05 L (3.80-5.40) m/uL Hgb 9.4 L (11.4-16.0) gm/dL Hct 28.3 L (34.0-46.0) % Plt Count 721 H (150-450) k/uL Neutrophils # 7.8 H (1.3-7.7) k/uL Chloride 109 H (98-107) mmol/L BUN 5 L (7-17) mg/dL Calcium 8.0 L (8.4-10.2) mg/dL Total Protein 5.2 L (6.3-8.2) g/dL Albumin 2.4 L (3.5-5.0) g/dL Assessment and Plan (1) Sepsis Current Visit: Yes Status: Acute Code(s): A41.9 - SEPSIS, UNSPECIFIED ORGANISM SNOMED Code(s): 04172730 (2) Cholecystitis with cholelithiasis Current Visit: Yes Status: Acute Code(s): K80.10 - CALCULUS OF GALLBLADDER W CHRONIC CHOLECYST W/O OBSTRUCTION SNOMED Code(s): 339778622 (3) Elevated bilirubin Current Visit: Yes Status: Acute Code(s): R17 - UNSPECIFIED JAUNDICE SNOMED Code(s): 580449784 (4) Elevation of level of transaminase and lactic acid dehydrogenase (LDH) Current Visit: Yes Status: Acute Code(s): R74.0 - NONSPEC ELEV OF LEVELS OF TRANSAMNS & LACTIC ACID DEHYDRGNSE SNOMED Code(s): 573784722
[2018-03-09] MEDS: HEPARIN SODIUM,PORCINE 5,000 UNIT/ML 1 ML VIAL SQ SCH ×2 (01:02→08:42)
[2018-03-09] MEDS: LACTATED RINGERS 1,000 ML IV SCH (01:50)
[2018-03-09] MEDS: GABAPENTIN 300 MG CAP PO SCH ×2 (01:55→05:41)
[2018-03-09] MEDS: IBUPROFEN 600 MG TAB PO PRN (01:55)
[2018-03-09] MEDS: PIPERACILLIN-TAZOBACTAM 3.375 GM in DEXTROSE/WATER 1 50ML.BAG IVPB SCH (01:56)
[2018-03-09] MEDS: LEVOTHYROXINE 100 MCG TAB PO SCH (05:41)
[2018-03-09 06:52] LABS: Basophils # (A) 0.1 k/uL (0-0.2); Basophils % (A) 1 %; Eosinophils # (A) 0.3 k/uL (0-0.7); Eosinophils % (A) 3 %; HCT 28.5 % (34.0-46.0); HGB 9.2 gm/dL (11.4-16.0); Lymphocytes # (A) 1.5 k/uL (1.0-4.8); Lymphocytes % (A) 15 %; MCH 30.2 pg (25.0-35.0); MCHC 32.1 g/dL (31.0-37.0); MCV 93.9 fL (80.0-100.0); Mean Platelet Volume 6.5; Monocytes # (A) 0.4 k/uL (0-1.0); Monocytes % (A) 4 %; Neutrophils # (A) 7.3 k/uL (1.3-7.7); Neutrophils % (A) 74 %; Platelet Count 739 k/uL (150-450); RBC 3.04 m/uL (3.80-5.40); RDW 13.8 % (11.5-15.5)
[2018-03-09 07:03] LABS: ALT 26 U/L (9-52); AST 15 U/L (14-36); Albumin 2.4 g/dL (3.5-5.0); Alkaline Phosphatase 70 U/L (38-126); Anion Gap 7 mmol/L; Blood Urea Nitrogen 6 mg/dL (7-17); Calcium 8.1 mg/dL (8.4-10.2); Carbon Dioxide 26 mmol/L (22-30); Chloride 107 mmol/L (98-107); Glucose 96 mg/dL (74-99); Potassium 3.9 mmol/L (3.5-5.1); Sodium 140 mmol/L (137-145); Total Bilirubin 0.4 mg/dL (0.2-1.3); Total Protein 5.3 g/dL (6.3-8.2)
[2018-03-09] MEDS: DOCUSATE 100 MG CAP PO SCH (08:42)
[2018-03-09 08:51] VITALS: BP 95/61; PULSE 82; RESP 20; TEMP 98
--- NOTE | 2018-03-09 09:05 | P.DS ---
Providers Date of admission: 02/27/18 16:01 Expected date of discharge: 03/09/18 Attending physician: Kathryn Brown Consults: 02/27/18 06:49 Consult Physician Routine Consulting Provider: Tk Lopez Consult Reason/Comments: abdominal pain Do you want consulting provider notified?: Yes 02/28/18 07:58 Consult Physician Routine Consulting Provider: Philip Light Consult Reason/Comments: septic alerts Do you want consulting provider notified?: Yes 02/28/18 10:18 Consult Physician Routine Consulting Provider: Kemar Rodriguez Consult Reason/Comments: r/o sepsis Do you want consulting provider notified?: Yes Primary care physician: [facility] Course: Discharge diagnosis #1 acute cholecystitis with cholelithiasis. Patient is postop day 2 status post Laprascopic cholecystectomy with Dr. Lopez. Postoperative Diagnosis of Purulent Cholecystitis. On 03/04 patient did have episode of emesis. per nursing staff surgical services was notified NG tube placed and CT of abdomen ordered. CT of abdomen completed showing new lower lobe pulmonary infiltrate and atelectasis new left small pleural effusion. Dilated stomach and small bowel is nonspecific. This could relate to severe ileus mechanical bowel obstruction. Dilated follows Compared to old exam. New subcutaneous edema around the abdomen. Surgical services following. patient has been tolerating regular diet. Discussed case with Dr. Lopez per surgical services would like patient able more day and possible discharge in a.m. tomorrow depending upon labs. WBC improving to 10.0. Patient has been cleared for discharge from Dr. Lopez and Dr. Light #[address] Light per infectious disease consulted. Patient receiving Zosyn for antibiotic. White blood cell 13.6. Blood culture showing no growth at this time at this time white blood count has improved to 10.8, patient has developed worsening diarrhea, will recheck stool sample for C. diff. Discussed case with Dr. Light per infectious disease anticipate possible discharge in the next 24-48 hours. WBC improving to 10.0. Patient will be discharged home on Augmentin. Patient educated on the importance of finishing full course of antibiotics. Patient will follow up with PCP. CBC and CMP have been ordered for 2 days. #3 sepsis, with septic shock as evidenced by hypotension, leukocytosis, fever patient received multiple fluid boluses, with minimal improvement in her blood pressure she will be transferred to ICU critical care consult was requested. patient currently on Levophed for pressure support. Dr. Sexton per critical care following closely. blood culture showing no growth #4 possible urinary tract infection. Urine culture negative #5 underlying history of hypothyroidism #6 underlying history of gastroesophageal reflux disease #7. Elevated liver enzymes. GI consult has been placed for possible ERCP. Total bili decreasing to 1.0 AST 20, ALT 59 and alkaline phosphatase 124. Per GI services no plan for ERCP at this time #8. History of illicit drug use. Patient has history of cocaine and heroine abuse. #9. History of CVA/TIA #10. History of MRSA. Patient was positive for MRSA, no blood in December 2016 Hospital course Patient is a 47 year old female who presented to [facility] emergency room the chief complaint of abdominal pain patient describes a severe pain in the epigastric area that started about 12 hours prior to presentation she was evaluated in the emergency room she had a computed tomography scan of the abdomen and pelvis and ultrasound of the abdomen off were suggestive of cholecystitis patient also had leukocytosis and low-grade fever he was started on IV antibiotic Zosyn and admitted to medical floor surgical consultation was requested. During this admission patient had low blood pressure and required IV fluid boluses. On 03/01/2018 patient is currently in the intensive care unit requiring Levophed for pressure support. Per nursing staff patient. Planning for laparoscopic cholecystectomy with Dr. Lopez today. Patient states she is still having severe upper abdominal pain. This time. Patient denies chest pain or shortness breath. Dr. Sexton Per critical care service is following closely. Dr. Light consulted for infectious disease. On 03/02/2018 patient remains in the intensive care unit on levophed for pressure support. Patient is currently alert and oriented 3. Patient status post laparoscopic cholecystectomy with Dr. Lopez yesterday. At this time patient denies chest pain or shortness breath.. Denies any urinary burning or frequency On 03/03/2018 patient remains in the intensive care unit. Patient is currently alert and oriented 3. Patient does state she is feeling improved. Patient remains on pressors. This time patient denies chest pain or shortness of breath. Patient does state she is passing gas but has not had a bowel movement. Patient denies any nausea vomiting or diarrhea. Patient denies any urinary burning or frequency On 03/04/2018 patient has been moved out of the intensive care unit. Blood pressures have improved. Patient is currently alert and oriented 3. Patient states that she did have a bowel movement last night. Patient is currently on a regular diet. At this time patient denies chest pain or shortness of breath. Patient denies nausea vomiting or diarrhea. Patient denies any urinary burning or frequency. On 03/05/2018 patient episode of emesis last night. Surgical services updated per nursing staff. NG placed to LIS and CT of abdomen has been ordered. At this time patient states nausea has subsided. Does still complain of some abdominal pain. Does state she is having bowel movements. Denies any chest pain or shortness breath. Denies any urinary burning. On 03/06/2018 patient is alert and oriented 3 in no apparent distress she denies any abdominal pain she states she is having bowel movements there is no new episodes of vomiting however white blood count is still elevated there is some abdominal tenderness with palpation On 03/07/2018 patient was seen and examined she is alert and oriented 3 she is complaining of abdominal discomfort she is complaining of multiple episodes of diarrhea otherwise she denies any complaints there is no fever or chills no headache no dizziness no chest pain no shortness of breath no cough and no urinary symptoms. 03/08/2018 patient is alert and oriented 3. Patient is eager to go home. Patient states she's been up walking the halls. Patient denies nausea vomiting or diarrhea. Patient denies any urinary symptoms. Patient denies chest pain or shortness breath. Discussed case with Dr. Lopez. Would like patient to stay 1 more day and possibly discharge home tomorrow. On 03/09/2018 patient is alert and oriented 3. patient is very eager to go home. Patient states she's had no nausea vomiting or diarrhea. She has been cleared by consulting providers including surgical services and infectious disease. Patient will be discharged home on Augmentin for antibiotics. Patient is to follow-up closely with primary care provider and consult. At this time patient denies chest pain or shortness of breath. Denies any urinary symptoms. CBC and CMP has been ordered for 2 days. Patient to follow up closely with PCP I performed an examination of the patient and discussed their management with the Nurse Practitioner. I have reviewed the Nurse Practitioner's notes and agree with the documented findings and plan of care Patient Condition at Discharge: Stable Plan - Discharge Summary Discharge Rx Participant: Yes New Discharge Prescriptions: New Docusate [Colace] 100 mg PO BID #20 capsule HYDROcodone/APAP 7.5-325MG [[place] 7.5-325] 1 tab PO Q4H PRN 3 Days #18 tab PRN Reason: Pain Amoxic-Pot Clav 875-125Mg [Augmentin 875-125] 1 tab PO Q12HR #14 tablet Continue Omeprazole [PriLOSEC] 40 mg PO DAILY Loratadine [Claritin] 10 mg PO DAILY Levothyroxine Sodium [Synthroid] 100 mcg PO DAILY Gabapentin [Neurontin] 600 mg PO Q4H Folic Acid 0.4 mg PO DAILY Oxybutynin Chloride [Ditropan] 5 mg PO TID Baclofen [Lioresal] 20 mg PO TID Naproxen 500 mg PO Q8H PRN PRN Reason: Pain Pyridoxine [Vitamin B-6] 50 mg PO DAILY Magnesium Oxide 400 mg PO DAILY Liothyronine Sodium [Cytomel] 5 mcg PO BID Flaxseed Oil [Marshall-3 Flaxseed Oil] 1,000 mg PO DAILY Discharge Medication List Loratadine [Claritin] 10 mg PO DAILY 02/01/17 [History] Omeprazole [PriLOSEC] 40 mg PO DAILY 02/01/17 [History] Baclofen [Lioresal] 20 mg PO TID 11/04/17 [History] Folic Acid 0.4 mg PO DAILY 11/04/17 [History] Gabapentin [Neurontin] 600 mg PO Q4H 11/04/17 [History] Levothyroxine Sodium [Synthroid] 100 mcg PO DAILY 11/04/17 [History] Oxybutynin Chloride [Ditropan] 5 mg PO TID 11/04/17 [History] Naproxen 500 mg PO Q8H PRN 12/17/17 [History] Pyridoxine [Vitamin B-6] 50 mg PO DAILY 12/17/17 [History] Flaxseed Oil [Marshall-3 Flaxseed Oil] 1,000 mg PO DAILY 02/27/18 [History] Liothyronine Sodium [Cytomel] 5 mcg PO BID 02/27/18 [History] Magnesium Oxide 400 mg PO DAILY 02/27/18 [History] Amoxic-Pot Clav 875-125Mg [Augmentin 875-125] 1 tab PO Q12HR #14 tablet [Rx] Docusate [Colace] 100 mg PO BID #20 capsule 03/05/18 [Rx] HYDROcodone/APAP 7.5-325MG [[place] 7.5-325] 1 tab PO Q4H PRN 3 Days #18 tab 03/05 [Rx] Follow up Appointment(s)/Referral(s): Laurence Haque MD [Primary Care Provider] - 1-2 days kT Lopez MD [STAFF PHYSICIAN] - 03/16/18 3:00 pm Ambulatory/Diagnostic Orders: Complete Blood Count w/diff [LAB.AMB] Location: None Selected Complete Blood Count w/diff [LAB.AMB] Time Frame: 2 Days, Location: None Selected Comprehensive Metabolic Panel [LAB.AMB] Time Frame: 2 Days, Location: None Selected Activity/Diet/Wound Care/Special Instructions: Diet regular Activity as tolerated Discharge Disposition: HOME SELF-CARE
[2018-03-09] MEDS: FOLIC ACID 1 MG TAB PO SCH (09:28)
[2018-03-09] MEDS: BACLOFEN 10 MG TAB PO SCH (09:28)
[2018-03-09] MEDS: OXYBUTYNIN CHLORIDE 5 MG TAB PO SCH (09:30)
[2018-03-09] MEDS: PYRIDOXINE 50 MG TAB PO SCH (09:31)
[2018-03-09] MEDS: PANTOPRAZOLE 40 MG/10 ML VIAL IVP SCH (09:31)
== END 2018-03-09 09:31 | disposition home or self-care (01) | DRG 853 ==
LOC: EC 01:23 → 3OBS 05:59 → OBSVTOIN 16:01 → 6ICU 02-28 11:20 → 5MS5E 03-04 01:11 → 6PED 03-07 20:55
PROVIDERS: ADMIT Internal Medicine; ATTEND Internal Medicine
PROC: 0FT44ZZ Resection of Gallbladder, Percutaneous Endoscopic Approach (ICD-10-PCS; principal; 2018-03-01 09:15)
DX: A41.9 Sepsis, unspecified organism (principal); R65.21 Severe sepsis with septic shock; J98.11 Atelectasis; K56.7 Ileus, unspecified; K80.62 Calculus of gallbladder and bile duct with acute cholecystitis without obstruction; N39.0 Urinary tract infection, site not specified; E03.9 Hypothyroidism, unspecified; F17.200 Nicotine dependence, unspecified, uncomplicated; K21.9 Gastro-esophageal reflux disease without esophagitis; K52.9 Noninfective gastroenteritis and colitis, unspecified; R16.0 Hepatomegaly, not elsewhere classified; R60.9 Edema, unspecified; R74.0 Nonspecific elevation of levels of transaminase and lactic acid dehydrogenase [LDH]; R74.8 Abnormal levels of other serum enzymes; Z86.14 Personal history of Methicillin resistant Staphylococcus aureus infection; Z86.73 Personal history of transient ischemic attack (TIA), and cerebral infarction without residual deficits; Z98.1 Arthrodesis status; Z79.890 Hormone replacement therapy; Z79.899 Other long term (current) drug therapy; Z88.6 Allergy status to analgesic agent; Z91.011 Allergy to milk products; Z90.49 Acquired absence of other specified parts of digestive tract; Z98.51 Tubal ligation status
CPT/HCPCS: 36415; 74018; 74160; 74177; 76705; 80053; 81001; 81003; 81025; 82150; 82533; 83605; 83690; 83735; 84100; 84132; 85025; 87040; 87086; 88304; 96374; 96375; 96376; 99284

== ENCOUNTER → 2018-03-10 | Outpatient (CLI) | payer MEDICARE, OTHER ==
[2018-03-10 12:41] LABS: ALT 19 U/L (9-52); AST 20 U/L (14-36); Albumin 2.7 g/dL (3.5-5.0); Alkaline Phosphatase 84 U/L (38-126); Anion Gap 9 mmol/L; Blood Urea Nitrogen 5 mg/dL (7-17); Calcium 8.1 mg/dL (8.4-10.2); Carbon Dioxide 24 mmol/L (22-30); Chloride 110 mmol/L (98-107); Glucose 103 mg/dL (74-99); Potassium 4.4 mmol/L (3.5-5.1); Sodium 143 mmol/L (137-145); Total Bilirubin 0.4 mg/dL (0.2-1.3)
[2018-03-10 12:59] LABS: Basophils # (A) 0.1 k/uL (0-0.2); Basophils % (A) 1 %; Eosinophils # (A) 0.3 k/uL (0-0.7); Eosinophils % (A) 2 %; HCT 34.7 % (34.0-46.0); Lymphocytes # (A) 1.7 k/uL (1.0-4.8); Lymphocytes % (A) 12 %; MCH 30.2 pg (25.0-35.0); MCHC 31.7 g/dL (31.0-37.0); MCV 95.3 fL (80.0-100.0); Mean Platelet Volume 6.8; Monocytes # (A) 0.5 k/uL (0-1.0); Monocytes % (A) 4 %; Neutrophils # (A) 11.2 k/uL (1.3-7.7); Neutrophils % (A) 80 %; Platelet Count 776 k/uL (150-450); RBC 3.64 m/uL (3.80-5.40); WBC 14.1 k/uL (3.8-10.6)
== END | disposition home or self-care (01) ==
LOC: LABWHC1 11:44
PROVIDERS: ATTEND Nurse Practitioner
DX: A41.9 Sepsis, unspecified organism (principal); R65.21 Severe sepsis with septic shock
CPT/HCPCS: 36415; 80053; 85025

== ENCOUNTER → 2018-08-12 | Outpatient (CLI) | payer MEDICARE, OTHER ==
[2018-08-12 07:45] LABS: HCT 42.8 % (34.0-46.0); HGB 13.8 gm/dL (11.4-16.0); MCH 30.3 pg (25.0-35.0); MCHC 32.2 g/dL (31.0-37.0); MCV 94.1 fL (80.0-100.0); Mean Platelet Volume 6.5; Platelet Count 343 k/uL (150-450); RBC 4.55 m/uL (3.80-5.40); RDW 14.4 % (11.5-15.5); WBC 8.7 k/uL (3.8-10.6)
[2018-08-12 12:28] LABS: Albumin 4.2 g/dL (3.80-4.90); Albumin/Globulin Ratio 1.91 (1.60-3.17); Anion Gap 11.2 mmol/L (4.00-12.00); Calcium 9.3 mg/dL (8.7-10.3); Carbon Dioxide 22.8 mmol/L (21.6-31.8); Globulin 2.2 g/dL (1.6-3.3); Potassium 4.4 mmol/L (3.5-5.5); Total Bilirubin 0.4 mg/dL (0.2-1.2); Total Protein 6.4 g/dL (6.2-8.2)
[2018-08-12 12:57] LABS: Hemoglobin A1C 5.3 % (4.0-6.0)
== END | disposition home or self-care (01) ==
LOC: LABWHC1 07:08
PROVIDERS: ATTEND Family Medicine
DX: E83.51 Hypocalcemia (principal); E88.09 Other disorders of plasma-protein metabolism, not elsewhere classified; D72.829 Elevated white blood cell count, unspecified; R73.01 Impaired fasting glucose
CPT/HCPCS: 36415; 80053; 82306; 83036; 85027

== ENCOUNTER 2018-08-30 10:26 | Emergency (ER) | payer MEDICARE, OTHER ==
--- NOTE | 2018-08-30 10:48 | ED ---
General Adult HPI - General Chief complaint: Abdominal Pain Stated complaint: POSS FLU Time Seen by Provider: 08/30/18 10:46 Source: patient, RN notes reviewed Mode of arrival: wheelchair Limitations: no limitations - History of Present Illness Initial comments: 47-year-old female with a past medical history of CVA, thyroid disorder, appendectomy, tubal ligation presents to the emergency department for multiple complaints. Patient states she has been nauseous for the past 7 days and has not eaten solid foods. She states she is drinking plenty of fluids. Patient denies vomiting. She admits to multiple bouts of diarrhea daily. Patient also admits to generalized abdominal cramping. Patient is also complaining of a productive cough for the past week. Patient does admit to smoking but states she stopped when she came sick. She states she has had warm and cold spells but is not sure if she had a fever.Patient has no other complaints at this time including shortness of breath, chest pain, vomiting, headache, or visual changes. - Related Data Home Medications Medication Instructions Recorded Confirmed Loratadine [Claritin] 10 mg PO DAILY 02/01/17 02/27/18 Omeprazole [PriLOSEC] 40 mg PO DAILY 02/01/17 02/27/18 Baclofen [Lioresal] 20 mg PO TID 11/04/17 02/27/18 Folic Acid 0.4 mg PO DAILY 11/04/17 02/27/18 Gabapentin [Neurontin] 600 mg PO Q4H 11/04/17 02/27/18 Levothyroxine Sodium [Synthroid] 100 mcg PO DAILY 11/04/17 02/27/18 Oxybutynin Chloride [Ditropan] 5 mg PO TID 11/04/17 02/27/18 Naproxen 500 mg PO Q8H PRN 12/17/17 02/27/18 Pyridoxine [Vitamin B-6] 50 mg PO DAILY 12/17/17 02/27/18 Flaxseed Oil [[place]-3 Flaxseed Oil] 1,000 mg PO DAILY 02/27/18 02/27/18 Liothyronine Sodium [Cytomel] 5 mcg PO BID 02/27/18 02/27/18 Magnesium Oxide 400 mg PO DAILY 02/27/18 02/27/18 Previous Rx's Medication Instructions Recorded Amoxic-Pot Clav 875-125Mg 1 tab PO Q12HR #14 tablet 03/05/18 [Augmentin 875-125] Docusate [Colace] 100 mg PO BID #20 capsule 03/05/18 HYDROcodone/APAP 7.5-325MG [[place] 1 tab PO Q4H PRN 3 Days #18 tab 03/05/18 7.5-325] Azithromycin [Zithromax Z-pack] 250 mg PO DIRECTED #6 tab 08/30/18 Ondansetron [Zofran ODT] 4 mg PO Q8HR PRN #15 tab 08/30/18 Allergies Allergy/AdvReac Type Severity Reaction Status Date / Time acetaminophen Allergy Rash/Hives Verified 08/30/18 13:23 aspirin Allergy Rash/Hives Verified 08/30/18 13:23 Milk Containing Products AdvReac Nausea & Verified 08/30/18 13:23 Vomiting Review of Systems ROS Statement: Those systems with pertinent positive or pertinent negative responses have been documented in the HPI. ROS Other: All systems not noted in ROS Statement are negative. 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 Date of last positivie culture/infection: 01/08/17 MDRO Source:: BLOOD Past Surgical History: Appendectomy, Tubal Ligation Additional Past Surgical History / Comment(s): neck fusion, carpal tunnel Past Anesthesia/Blood Transfusion Reactions: No Reported Reaction, Unable to Obtain Past Psychological History: No Psychological Hx Reported Smoking Status: Current every day smoker Past Alcohol Use History: Occasional Past Drug Use History: None Reported - Past Family History Father History Unknown: Yes Family Medical History: Unable to Obtain Mother History Unknown: Yes Family Medical History: Unable to Obtain General Exam Limitations: no limitations General appearance: alert, in no apparent distress Head exam: Present: atraumatic, normocephalic, normal inspection Eye exam: Present: normal appearance, PERRL, EOMI. Absent: scleral icterus, conjunctival injection, periorbital swelling ENT exam: Present: normal exam, mucous membranes moist Neck exam: Present: normal inspection, full ROM. Absent: tenderness, meningismus, lymphadenopathy Respiratory exam: Present: normal lung sounds bilaterally. Absent: respiratory distress, wheezes, rales, rhonchi, stridor Cardiovascular Exam: Present: regular rate, normal rhythm, normal heart sounds. Absent: systolic murmur, diastolic murmur, rubs, gallop, clicks GI/Abdominal exam: Present: soft, tenderness (generalized tenderness without guarding), normal bowel sounds. Absent: distended, guarding, rebound, rigid Neurological exam: Present: alert, oriented X3, CN II-XII intact Psychiatric exam: Present: normal affect, normal mood Course Vital Signs 08/30/18 10:35 Temperature 97.7 F Pulse Rate 79 Respiratory 18 Rate Blood Pressure 117/81 O2 Sat by Pulse 98 Oximetry - Reevaluation(s) Reevaluation #1: 08/30/18 11:21 3.1 minutes of smoking cessation education discussed with patient. Medical Decision Making - Medical Decision Making 47-year-old female with nausea vomiting, abdominal pain, cough and fever presents to the emergency department. CBC unremarkable. CMP generally within normal limits. Influenza A is detected. Chest x-ray shows no suspicious acute infiltrate however likely a viral bronchiolitis. Given patient's surgical history CT abdomen and pelvis was ordered due to patient's abdominal pain. This did show an underlying pneumonia but no acute abdominal abnormalities. Patient will be started on azithromycin. Her symptoms have been ongoing for 7 days so she was not given Tamiflu. She will follow up with primary care in return here if she has any worsening symptoms. - Lab Data Result diagrams: 08/30/18 11:50 08/30/18 11:50 Lab Results 08/30/18 08/30/18 08/30/18 Range/Units 11:50 11:50 11:50 WBC 5.0 (3.8-10.6) k/uL RBC 4.93 (3.80-5.40) m/uL Hgb 15.2 (11.4-16.0) gm/dL Hct 43.2 (34.0-46.0) % MCV 87.6 D (80.0-100.0) fL MCH 30.9 (25.0-35.0) pg MCHC 35.3 (31.0-37.0) g/dL RDW 13.6 (11.5-15.5) % Plt Count 279 (150-450) k/uL Neutrophils % (Manual) 47 % Lymphocytes % (Manual) 39 % Monocytes % (Manual) 14 % Neutrophils # (Manual) 2.35 (1.3-7.7) k/uL Lymphocytes # (Manual) 1.95 (1.0-4.8) k/uL Monocytes # (Manual) 0.70 (0-1.0) k/uL Nucleated RBCs 0 (0-0) /100 WBC Manual Slide Review Performed RBC Morphology Normal Sodium 141 (137-145) mmol/L Potassium 4.1 (3.5-5.1) mmol/L Chloride 108 H (98-107) mmol/L Carbon Dioxide 19 L (22-30) mmol/L Anion Gap 14 mmol/L BUN 10 (7-17) mg/dL Creatinine 0.77 (0.52-1.04) mg/dL Est GFR (CKD-EPI)AfAm >90 (>60 ml/min/1.73 sqM) Est GFR (CKD-EPI)NonAf >90 (>60 ml/min/1.73 sqM) Glucose 93 (74-99) mg/dL Calcium 9.4 (8.4-10.2) mg/dL Total Bilirubin 1.0 (0.2-1.3) mg/dL AST 54 H (14-36) U/L ALT 39 (9-52) U/L Alkaline Phosphatase 105 (38-126) U/L Total Protein 7.8 (6.3-8.2) g/dL Albumin 4.4 (3.5-5.0) g/dL Amylase 60 (30-110) U/L Lipase 49 (23-300) U/L Urine HCG, Qual (Not Detectd) Influenza Type A RNA Detected H (Not Detectd) Influenza Type B (PCR) Not Detected (Not Detectd) 08/30/18 Range/Units 13:00 WBC (3.8-10.6) k/uL RBC (3.80-5.40) m/uL Hgb (11.4-16.0) gm/dL Hct (34.0-46.0) % MCV (80.0-100.0) fL MCH (25.0-35.0) pg MCHC (31.0-37.0) g/dL RDW (11.5-15.5) % Plt Count (150-450) k/uL Neutrophils % (Manual) % Lymphocytes % (Manual) % Monocytes % (Manual) % Neutrophils # (Manual) (1.3-7.7) k/uL Lymphocytes # (Manual) (1.0-4.8) k/uL Monocytes # (Manual) (0-1.0) k/uL Nucleated RBCs (0-0) /100 WBC Manual Slide Review RBC Morphology Sodium (137-145) mmol/L Potassium (3.5-5.1) mmol/L Chloride (98-107) mmol/L Carbon Dioxide (22-30) mmol/L Anion Gap mmol/L BUN (7-17) mg/dL Creatinine (0.52-1.04) mg/dL Est GFR (CKD-EPI)AfAm (>60 ml/min/1.73 sqM) Est GFR (CKD-EPI)NonAf (>60 ml/min/1.73 sqM) Glucose (74-99) mg/dL Calcium (8.4-10.2) mg/dL Total Bilirubin (0.2-1.3) mg/dL AST (14-36) U/L ALT (9-52) U/L Alkaline Phosphatase (38-126) U/L Total Protein (6.3-8.2) g/dL Albumin (3.5-5.0) g/dL Amylase (30-110) U/L Lipase (23-300) U/L Urine HCG, Qual Not Detected (Not Detectd) Influenza Type A RNA (Not Detectd) Influenza Type B (PCR) (Not Detectd) Disposition Clinical Impression: Influenza A, Pneumonia Disposition: HOME SELF-CARE Condition: Good Instructions (If sedation given, give patient instructions): Influenza (ED) Additional Instructions: Continue to drink plenty of fluids. Follow up with primary care in 1-2 days. Take antibiotics as directed. Return here to the emergency department if you have any worsening symptoms. Prescriptions: Azithromycin [Zithromax Z-pack] 250 mg PO DIRECTED #6 tab Ondansetron [Zofran ODT] 4 mg PO Q8HR PRN #15 tab PRN Reason: Nausea Is patient prescribed a controlled substance at d/c from ED?: No Referrals: Laurence Haque MD [Primary Care Provider] - 1-2 days Time of Disposition: 13:23
[2018-08-30] MEDS ORDERED: SODIUM CHLORIDE 0.9% 1,000 ML IV STA (10:58)
[2018-08-30] MEDS ORDERED: ONDANSETRON 4 MG/2 ML VIAL IVP STA (11:05)
[2018-08-30] MEDS ORDERED: KETOROLAC 30 MG/ML 1 ML VIAL IVP STA (11:06)
[2018-08-30 12:17] LABS: HCT 43.2 % (34.0-46.0); HGB 15.2 gm/dL (11.4-16.0); MCH 30.9 pg (25.0-35.0); MCHC 35.3 g/dL (31.0-37.0); Mean Platelet Volume 6.6; Platelet Count 279 k/uL (150-450); RBC 4.93 m/uL (3.80-5.40); RDW 13.6 % (11.5-15.5)
[2018-08-30 12:28] LABS: ALT 39 U/L (9-52); AST 54 U/L (14-36); Albumin 4.4 g/dL (3.5-5.0); Alkaline Phosphatase 105 U/L (38-126); Amylase 60 U/L (30-110); Anion Gap 14 mmol/L; Blood Urea Nitrogen 10 mg/dL (7-17); Calcium 9.4 mg/dL (8.4-10.2); Carbon Dioxide 19 mmol/L (22-30); Chloride 108 mmol/L (98-107); Glucose 93 mg/dL (74-99); Lipase 49 U/L (23-300); MCV 87.6 fL (80.0-100.0); Potassium 4.1 mmol/L (3.5-5.1); Sodium 141 mmol/L (137-145); Total Protein 7.8 g/dL (6.3-8.2)
[2018-08-30 12:44] LABS: Lymphocytes # (M) 1.95 k/uL (1.0-4.8); Neutrophils # (M) 2.35 k/uL (1.3-7.7); Neutrophils % (M) 47 %; Nucleated Red Blood Cells 0 /100 WBC (0-0); Total Cells Counted 100
--- NOTE | 2018-08-30 12:45 | XR ---
EXAMINATION TYPE: XR chest 2V DATE OF EXAM: 08/30/2018 COMPARISON: Chest x-ray February 05, 2017. HISTORY: Flulike symptoms for 7 days. TECHNIQUE: Frontal and lateral views of the chest are obtained. FINDINGS: Bilateral perihilar peribronchial cuffing. There is no focal air space opacity, pleural ef fusion, or pneumothorax seen. The cardiac silhouette size is within normal limits. Anterior fusion p late lower cervical spine is noted on current study. IMPRESSION: No suspicious acute infiltrate. Bilateral perihilar peribronchial cuffing is consistent with reactive airway disease possibly from a viral bronchiolitis. Correlate clinically.
--- NOTE | 2018-08-30 12:52 | CT ---
EXAMINATION TYPE: CT abdomen pelvis w con DATE OF EXAM: 08/30/2018 COMPARISON: 03/04/2018 HISTORY: Generalized abdominal pain and upper respiratory complaints. CT DLP: 1149.9 mGycm CONTRAST: CT scan of the abdomen and pelvis is performed without Oral Contrast and with IV Contrast, patient in jected with 100 mL of Isovue 300. FINDINGS: LUNG BASES-: No visible nodule. Patchy basilar infiltrates noted may reflect underlying pneumonia. Co rrelate clinically and progress studies are advised. LIVER/GB: Cholecystectomy clips are in place. No space occupying hepatic lesion. Biliary tree is o f normal caliber. PANCREAS: No inflammation. No distinct mass. SPLEEN: No splenic enlargement. No lesion seen. Splenic granulomas noted. ADRENALS: No nodule. No thickening. KIDNEYS/BLADDER: No hydronephrosis. No nephrolithiasis. No distinct renal mass. Urinary bladder g rossly unremarkable. BOWEL: The appendix is not clearly visualized. No inflammatory process right lower quadrant. Normal bowel caliber. No inflammation. No abscess or free air identified. GENITAL ORGANS: No gross abnormality. LYMPH NODES: No greater than 1cm abdominal or pelvic lymph nodes are appreciated. AORTA: No significant abnormality. OSSEOUS STRUCTURES: No significant abnormality is seen. OTHER: No significant additional abnormality is seen. IMPRESSION: 1. No acute abnormality identified to account for the patient's abdominal symptoms. 2. Correlate for underlying pneumonia. Progress studies may be of value.
[2018-08-30 13:27] LABS: Appearance,Urine Cloudy (Clear); Bacteria,Urine Occasional /hpf; Bilirubin,Urine Negative (Negative); Blood,Urine Negative (Negative); Color,Urine Yellow; Glucose,Urine (UA) Negative (Negative); Ketones,Urine 2+ (Negative); Leukocyte Esterase,Urine Negative (Negative); Mucus,Urine Rare /hpf; Nitrite,Urine Positive (Negative); Protein,Urine Trace (Negative); RBC,Urine 2 /hpf (0-5); Specific Gravity,Urine >1.050 (1.001-1.035); Squamous Epithelial Cell,Urine 11 /hpf (0-4); WBC,Urine 7 /hpf (0-5)
[2018-08-30 13:55] VITALS: BP 120/78; PULSE 81; RESP 16; TEMP 97.8
== END 2018-08-30 13:53 | disposition home or self-care (01) ==
LOC: EC 10:26
DX: J10.00 Influenza due to other identified influenza virus with unspecified type of pneumonia (principal); R10.84 Generalized abdominal pain; R11.2 Nausea with vomiting, unspecified; R19.7 Diarrhea, unspecified; E07.9 Disorder of thyroid, unspecified; F17.200 Nicotine dependence, unspecified, uncomplicated; Z90.49 Acquired absence of other specified parts of digestive tract; Z86.14 Personal history of Methicillin resistant Staphylococcus aureus infection; Z86.73 Personal history of transient ischemic attack (TIA), and cerebral infarction without residual deficits; Z98.51 Tubal ligation status; Z79.890 Hormone replacement therapy; Z79.899 Other long term (current) drug therapy; Z88.6 Allergy status to analgesic agent; Z91.011 Allergy to milk products
CPT/HCPCS: 36415; 80053; 82150; 83690; 85025; 81001; 81025; 87502; 71046; 74177; 99284; 96374; 96375; 96361; J2405; J1885; Q9967

== ENCOUNTER → 2019-07-06 | Outpatient (CLI) | payer MEDICARE, OTHER ==
--- NOTE | 2019-07-06 13:09 | XR ---
EXAMINATION TYPE: XR lumbar spine 2 or 3V DATE OF EXAM: 07/06/2019 COMPARISON: None HISTORY: Segmental somatic dysfunction lumbar spine TECHNIQUE: Three-view lumbar spine FINDINGS: There 5 lumbar-type vertebral bodies. Pedicles are intact. There is attempted sacralization of L5 on the right. T12 ribs are rudimentary. IMPRESSION: 1. Attempted sacralization of L5 on the right. 2. No acute lumbar spine changes
== END | disposition home or self-care (01) ==
LOC: RADXRMAIN 11:30
PROVIDERS: ATTEND Chiropractor
DX: M43.27 Fusion of spine, lumbosacral region (principal)
CPT/HCPCS: 72100

== ENCOUNTER → 2019-12-20 | Outpatient (CLI) | payer MEDICARE, OTHER ==
--- NOTE | 2019-12-21 10:04 | MM ---
Reason for exam: screening (asymptomatic). Last mammogram was performed 3 years and 11 months ago. History: Patient is postmenopausal. Physical Findings: A clinical breast exam by your physician is recommended on an annual basis and results should be correlated with mammographic findings. MG 3D Screening Mammo W/Cad Bilateral CC and MLO view(s) were taken. XCCL view(s) were taken of the right breast. Prior study comparison: January 29, 2016, bilateral MG screening mammo w CAD. December 20, 2014, bilateral MG screening mammo w CAD. There are scattered fibroglandular densities. Stable benign calcifications in the right breast. There is no discrete abnormality. No significant changes when compared with prior studies. ASSESSMENT: Benign, BI-RAD 2 RECOMMENDATION: Routine screening mammogram of both breasts in 1 year.
== END | disposition home or self-care (01) ==
LOC: RADMAMWWP 15:13
PROVIDERS: ATTEND Family Medicine
DX: Z12.31 Encounter for screening mammogram for malignant neoplasm of breast (principal)
CPT/HCPCS: 77063; 77067